=== PATIENT | female | born 1930 | race Caucasian/White ===

== ENCOUNTER 2016-05-20 11:14 | Day surgery (SDC) | payer MEDICARE ==
[~2016-05-20] VITALS: Ht 157.5 cm; Wt 70.0 kg
[2016-05-20 11:15] VITALS: BP 128/80; PULSE 84; RESP 17; TEMP 98.1; O2SAT 98
[2016-05-20] MEDS ORDERED: GLUCAGON 1 MG/ML VIAL IV PUSH ONE (12:00)
[2016-05-20] MEDS ORDERED: ONDANSETRON HCL 4 MG/2 ML VIAL IV PUSH ONE ×2 (12:00)
--- NOTE | 2016-05-20 12:34 | RADRPT ---
EXAM DATE/TIME: 05/20/2016 12:02 [place] COMPARISON: No previous studies available for comparison. INDICATIONS : Patient states chest pain and vomiting. MEDICAL HISTORY : Hypertension. SURGICAL HISTORY : Aortic Valve replacement. ENCOUNTER: Initial ACUITY: 1 day PAIN SCORE: 3/10 LOCATION: Bilateral chest FINDINGS: A single view of the chest demonstrates the lungs to be symmetrically aerated without evidence of mas s, infiltrate or effusion. Wires from previous bypass are evident. The cardiomediastinal contours a re unremarkable. Scoliosis is noted. CONCLUSION: Negative for an acute process. Andreas Ogden MD FACR on May 20, 2016 at 12:32 Board Certified Radiologist. This report was verified electronically.
[2016-05-20] MEDS ORDERED: PRAV10TA PO (12:40)
[2016-05-20] MEDS ORDERED: MIRT45TA PO (12:40)
[2016-05-20] MEDS ORDERED: MSIR15 PO (12:40)
[2016-05-20] MEDS ORDERED: ATEN50TA PO (12:40)
[2016-05-20] MEDS ORDERED: MONT10TA2 PO (12:40)
[2016-05-20] MEDS ORDERED: LEVO150T7 PO (12:40)
[2016-05-20] MEDS ORDERED: APIX2.5T PO (12:40)
[2016-05-20 12:43] LABS: AUTOMATED NEUTROPHIL # 5.1 TH/MM3 (1.8-7.7); BASOPHIL % 0.7 % (0.0-2.0); EOSINOPHIL # 0.1 TH/MM3 (0-0.4); EOSINOPHIL % 1.8 % (0.0-4.0); HEMATOCRIT 42.9 % (35.0-46.0); HEMO FLAGS DIFF FINAL; LYMPH % 23.4 % (9.0-44.0); LYMPHOCYTE # 1.8 TH/MM3 (1.0-4.8); MEAN CELL VOLUME 92.9 FL (80.0-100.0); MEAN CORPUSCULAR HEMOGLOBIN 30.9 PG (27.0-34.0); MEAN CORPUSCULAR HGB CONC 33.3 % (32.0-36.0); MONO % 7.6 % (0.0-8.0); NEUT % 66.5 % (16.0-70.0); PLATELET COUNT 131 TH/MM3 (150-450); RED BLOOD COUNT 4.62 MIL/MM3 (4.00-5.30); RED CELL DISTRIBUTION WIDTH 15.5 % (11.6-17.2); WHITE BLOOD COUNT 7.6 TH/MM3 (4.0-11.0)
[2016-05-20 12:46] LABS: APTT (PATIENT) 25.9 SEC (24.3-30.1); PROTHROMBIN TIME - PATIENT 11.3 SEC (9.8-11.6)
[2016-05-20 12:55] LABS: BICARBONATE 29.5 MEQ/L (21.0-32.0); POTASSIUM 4.3 MEQ/L (3.5-5.1)
[2016-05-20 12:56] LABS: ALT (GPT) 89 U/L (10-53); AST (GOT) 142 U/L (15-37)
--- NOTE | 2016-05-20 12:58 | PD ---
HPI Chief Complaint: Foreign Body Time Seen by Provider: 12:49 Travel History International Travel<30 days: No Contact w/Intl Traveler<30days: No Traveled to known affect area: No History of Present Illness HPI 85-year-old female that presents to the ED for evaluation of possible fluid bolus on her throat. Per patient she was eating steak yesterday and yesterday she felt like something is stuck in her throat. Per patient she hopes that it will get better by today and she woke up today and she tried to have some applesauce and she was able to get it down but per patient he came back up and she threw it up. Per patient she feels like there is something stuck in her throat. She states that it is causes some discomfort in her throat and her chest. She states that she has a history of bladder cancer and has a urostomy tube. She states that she does not takes blood thinners secondary to multiple blood clots in the past. She denies any abdominal discomfort. She states that she's had episodes like this before 2 with EGD performed 2 in the past. She states that the had to do the left patient in the past. Last episode was 3 years ago. She states that she does not have a GI doctor in the area. She is from out of town but she now lives and resides in this area. She does have allergies to codeine and Keflex. She has not seen anybody for this. She comes here with family who provide most of the information as well as the patient. She rates her pain as 5 out of 10. She denies any blood in her vomit. Denies any fevers chills or sweats. No recent surgeries. PFSH Past Medical History Asthma: Yes Anxiety: Yes Cancer: Yes (BLADDER CANCER) High Cholesterol: Yes COPD: Yes Hypertension: Yes Medical other: Yes (BLOOD CLOTS) Musculoskeletal: Yes (BACK INJURY) Thyroid Disease: Yes Tetanus Vaccination: Unknown Menopausal: Yes Past Surgical History Appendectomy: Yes Cardiac Surgery: Yes (BOVINE VALVE) Cholecystectomy: Yes Genitourinary Surgery: Yes (BLADDER REMOVAL, UROSTOMY) Tonsillectomy: Yes Other Surgery: Yes (BOWEL RESECTION, LYMPH NODE REMOVAL) Social History Alcohol Use: No Tobacco Use: No Substance Use: No Allergies-Medications (Allergen,Severity, Reaction): Coded Allergies: Codeine (Verified Allergy, Severe, nausea , 05/20/16) Keflex (Verified Allergy, Severe, rash, 05/20/16) Reported Meds & Prescriptions Reported Meds & Active Scripts Active Reported Pravastatin 10 Mg Tab 10 Mg PO HS Eliquis (Apixaban) 2.5 Mg Tab 2.5 Mg PO BID Singulair (Montelukast Sodium) 10 Mg Tab 10 Mg PO HS Levothyroxine (Levothyroxine Sodium) 150 Mcg Tab 150 Mcg PO DAILY Morphine IR (Morphine Sulfate) 15 Mg Tab 15 Mg PO Q6HR PRN Mirtazapine 45 Mg Tab 45 Mg PO HS Atenolol 50 Mg Tab 50 Mg PO DAILY Review of Systems General / Constitutional: No: Fever, Chills, Weight Gain, Weight Loss, Other Eyes: No: Diploplia, Blurred Vision, Photophobia, Drainage, Redness, Foreign Body Sensation, Pain, Tearing, Blind Spots, Visual changes, Blindness, Other HENT: No: Headaches, Vertigo, Lightheadedness, Sore Throat, Rhinitis, Rhinorrhea, Congestion, Nosebleed, Neck Stiffness, Neck Pain, Masses, Gingival Bleeding, Dental Difficulties, Ear Discharge, Earache, Other Cardiovascular: Positive: Chest Pain or Discomfort, No: Palpitations, Irregular Rhythm, Tachycardia, Diaphoresis, Syncope, Dyspnea on exertion, Varicosities, Edema, Cyanosis, Varicosities, Phlebitis, Claudication, Other Respiratory: No: Cough, Shortness of Breath, Wheezing, Sneezing, Orthopnea, Hemoptysis, Stridor, Night Sweats, Pleuritic Pain, Other Gastrointestinal: Positive: Nausea, Vomiting, Hematemesis, Dysphagia, No: Diarrhea, Abdominal Pain, Hematochezia, Constipation, Changes in Bowel Habits, Indigestion, Loss of Appetite, Other Genitourinary: No: Urgency, Frequency, Dysuria, Nocturia, Hematuria, Decreased Urinary Output, Oliguria, Hesitancy, Dribbling, Incontinence, Pelvic Pain, Flank Pain, Dyspareunia, Discharge, Dysmenorrhea, Menorrhagia, Metorrhagia, Vaginal Bleeding, Other Musculoskeletal: No: Myalgias, Arthralgias, Limited ROM, Weakness, Cramping, Edema, Pain, Atrophy, Other Skin: No Rash, No Itching, No Dryness, No Lumps, No Hives, No Change in Pigmentation, No Change in nails, No Alopecia, No Lesions, No Breast Lumps, No Breast Tenderness, No Breast Swelling, No Other Neurologic: No: Weakness, Dizziness, Syncope, Focal Abnormalities, Coordination Problem, Tremor, Ataxia, Headache, Change in Mentation, Slurred Speech, Paresthesia, Incontinence, Seizures, Sensory Disturbance, Other Psychiatric: No: Anxiety, Depression, Suicidal Ideations, Disorder of Thought, Mood Disorder, Substance Abuse, Homicidal Ideation, Other Endocrine: No: Heat Intolerance, Cold Intolerance, Polyuria, Polydipsia, Other Hematologic/Lymphatic: No: Easy Bruising, Lymph Node Enlargement, Other Physical Exam Narrative GENERAL: SKIN: Warm and dry. HEAD: Atraumatic. Normocephalic. EYES: Pupils equal and round. No scleral icterus. No injection or drainage. ENT: No nasal bleeding or discharge. Mucous membranes pink and moist. Tongue is midline. No uvula deviation. No obvious sign of deformity on the throat itself. NECK: Trachea midline. No JVD. CARDIOVASCULAR: Regular rate and rhythm. No murmurs, S3, S4. RESPIRATORY: No accessory muscle use. Clear to auscultation. Breath sounds equal bilaterally. GASTROINTESTINAL: Abdomen soft, non-tender, nondistended. Hepatic and splenic margins not palpable. MUSCULOSKELETAL: Extremities without clubbing, cyanosis, or edema. No obvious deformities. Full range of motion of the upper and lower extremities bilaterally. 2+ pulses bilaterally. Neurovascular intact. NEUROLOGICAL: Awake and alert. No obvious cranial nerve deficits. Motor grossly within normal limits. Five out of 5 muscle strength in the arms and legs. Normal speech. PSYCHIATRIC: Appropriate mood and affect; insight and judgment normal. Data Data Last Documented VS Vital Signs Date Time Temp Pulse Resp B/P Pulse Ox O2 Delivery O2 Flow Rate FiO2 05/20/16 11:15 98.1 84 17 128/80 98 Orders Complete Blood Count With Diff (05/20/16 11:52) Basic Metabolic Panel (Bmp) (05/20/16 11:52) Iv Access Insert/Monitor (05/20/16 11:52) Ondansetron Inj (Zofran Inj) (05/20/16 12:00) Electrocardiogram (05/20/16 12:00) Troponin I (05/20/16 12:00) Prothrombin Time / Inr (Pt) (05/20/16 12:00) Act Partial Throm Time (Ptt) (05/20/16 12:00) Hepatic Functional Panel (05/20/16 12:00) Lipase (05/20/16 12:00) Chest, Single Ap (05/20/16 12:00) Glucagon Inj (Glucagon Inj) (05/20/16 12:00) Us Abdomen Gallbladder (05/20/16 ) Labs Laboratory Tests Test 05/20/16 12:30 White Blood Count 7.6 TH/MM3 Red Blood Count 4.62 MIL/MM3 Hemoglobin 14.3 GM/DL Hematocrit 42.9 % Mean Corpuscular Volume 92.9 FL Mean Corpuscular Hemoglobin 30.9 PG Mean Corpuscular Hemoglobin 33.3 % Concent Red Cell Distribution Width 15.5 % Platelet Count 131 TH/MM3 Mean Platelet Volume 9.0 FL Neutrophils (%) (Auto) 66.5 % Lymphocytes (%) (Auto) 23.4 % Monocytes (%) (Auto) 7.6 % Eosinophils (%) (Auto) 1.8 % Basophils (%) (Auto) 0.7 % Neutrophils # (Auto) 5.1 TH/MM3 Lymphocytes # (Auto) 1.8 TH/MM3 Monocytes # (Auto) 0.6 TH/MM3 Eosinophils # (Auto) 0.1 TH/MM3 Basophils # (Auto) 0.0 TH/MM3 CBC Comment DIFF FINAL Differential Comment Prothrombin Time 11.3 SEC Prothromb Time International 1.0 RATIO Ratio Activated Partial 25.9 SEC Thromboplast Time Sodium Level 142 MEQ/L Potassium Level 4.3 MEQ/L Chloride Level 108 MEQ/L Carbon Dioxide Level 29.5 MEQ/L Anion Gap 5 MEQ/L Blood Urea Nitrogen 21 MG/DL Creatinine 0.82 MG/DL Estimat Glomerular Filtration 66 ML/MIN Rate Random Glucose 112 MG/DL Calcium Level 8.8 MG/DL Total Bilirubin 1.0 MG/DL Direct Bilirubin 0.4 MG/DL Indirect Bilirubin 0.6 MG/DL Aspartate Amino Transf 142 U/L (AST/SGOT) Alanine Aminotransferase 89 U/L (ALT/SGPT) Alkaline Phosphatase 511 U/L Troponin I LESS THAN 0.02 NG/ML Total Protein 7.6 GM/DL Albumin 3.2 GM/DL Lipase 162 U/L MDM Medical Decision Making Medical Screen Exam Complete: Yes Emergency Medical Condition: Yes Medical Record Reviewed: Yes Interpretation(s) CBC & BMP Diagram 05/20/16 12:30 CXR negative EKG shows sinus rhythm with no sign of acute ischemia or arrhythmia. Read by me and attending. Troponin and CK-MB negative. LFTs slightly elevated. Differential Diagnosis Dysphagia versus food bolus impaction versus esophageal stricture versus esophageal foreign body Narrative Course 85-year-old female that presents to the ED for evaluation of possible Food stock on the throat. Patient was properly examined and was found to have signs and symptoms consistent with appears to be as above footballs impaction in the esophagus. Patient has episodes of this in the past and feels very similar. She was hoping that he will get better but she did not. She has no GI doctor in the area. At this time recommendation is to do labs, imaging, IV glucagon and reasses with PO challenge. Labs and imaging unremarcable. PO challenge failed. GI doctor consulted and Dr. Medina and agrees to same day surgery for EGD. Labs and paperwork done. Diagnosis Primary Impression: Esophageal obstruction due to food impaction Raoul Aparicio May 20, 2016 12:57
[2016-05-20 12:59] LABS: ALKALINE PHOSPHATASE 511 U/L (45-117); INDIRECT BILIRUBIN 0.6 MG/DL (0.0-0.8)
[2016-05-20] MEDS ORDERED: MORPHINE SULFATE 4 MG/ML INJ IV PUSH ONE (14:15)
[2016-05-20] MEDS ORDERED: LACTATED RINGER'S 1,000 ML BAG XX ONE (15:45)
[2016-05-20] MEDS ORDERED: PROPOFOL 200 MG/20 ML AMP IV ONE (16:07)
[2016-05-20 18:24] VITALS: TEMP 97.7
--- NOTE | 2016-05-20 18:44 | PD.CONS ---
HPI History of Present Illness This is a 85 year old presents to the emergency room with complaints of food bolus impaction apparently she was eating today and she couldn't finish her food and hopefully it'll resolve by the morning but when she woke up she said couldn't eat or drink this is happen to her before and she did require esophageal dilation she denies any heartburn or reflux and she does not take any stomach or reflux medication she denies any change in appetite or weight loss denies any chest pain or shortness of breath PFSH Past Medical History Asthma, anxiety, bladder cancer, hyperlipidemia, COPD, hypertension Past Surgical History appendectomy, heart surgery, cholecystectomy, bladder removal, tonsillectomy Coded Allergies: Codeine (Verified Allergy, Severe, nausea , 05/20/16) Keflex (Verified Allergy, Severe, rash, 05/20/16) Medications Pravastatin 10 Mg Tab 10 Mg PO HS Eliquis (Apixaban) 2.5 Mg Tab 2.5 Mg PO BID Singulair (Montelukast Sodium) 10 Mg Tab 10 Mg PO HS Levothyroxine (Levothyroxine Sodium) 150 Mcg Tab 150 Mcg PO DAILY Morphine IR (Morphine Sulfate) 15 Mg Tab 15 Mg PO Q6HR PRN Mirtazapine 45 Mg Tab 45 Mg PO HS Atenolol 50 Mg Tab 50 Mg PO DAILY Family History Noncontributory Social History None Review of Systems ROS Review of systems Patient denies any headache dizziness blurry vision, denies any chest pain shortness of breath cough fever chills, Denies any palpitations or fatigue denies any polyuria dysuria hematuria, denies any numbness tingling or weakness, denies any skin rash pruritus or jaundice, denies any easy bruising or bleeding tendency, denies any recent change in mood GI Exam Vitals I&O Vital Signs Date Time Temp Pulse Resp B/P Pulse Ox O2 Delivery O2 Flow Rate FiO2 05/20/16 11:15 98.1 84 17 128/80 98 Laboratory Test 05/20/16 12:30 White Blood Count 7.6 TH/MM3 Red Blood Count 4.62 MIL/MM3 Hemoglobin 14.3 GM/DL Hematocrit 42.9 % Mean Corpuscular Volume 92.9 FL Mean Corpuscular Hemoglobin 30.9 PG Mean Corpuscular Hemoglobin 33.3 % Concent Red Cell Distribution Width 15.5 % Platelet Count 131 TH/MM3 Mean Platelet Volume 9.0 FL Neutrophils (%) (Auto) 66.5 % Lymphocytes (%) (Auto) 23.4 % Monocytes (%) (Auto) 7.6 % Eosinophils (%) (Auto) 1.8 % Basophils (%) (Auto) 0.7 % Neutrophils # (Auto) 5.1 TH/MM3 Lymphocytes # (Auto) 1.8 TH/MM3 Monocytes # (Auto) 0.6 TH/MM3 Eosinophils # (Auto) 0.1 TH/MM3 Basophils # (Auto) 0.0 TH/MM3 CBC Comment DIFF FINAL Differential Comment Prothrombin Time 11.3 SEC Prothromb Time International 1.0 RATIO Ratio Activated Partial 25.9 SEC Thromboplast Time Sodium Level 142 MEQ/L Potassium Level 4.3 MEQ/L Chloride Level 108 MEQ/L Carbon Dioxide Level 29.5 MEQ/L Anion Gap 5 MEQ/L Blood Urea Nitrogen 21 MG/DL Creatinine 0.82 MG/DL Estimat Glomerular Filtration 66 ML/MIN Rate Random Glucose 112 MG/DL Calcium Level 8.8 MG/DL Total Bilirubin 1.0 MG/DL Direct Bilirubin 0.4 MG/DL Indirect Bilirubin 0.6 MG/DL Aspartate Amino Transf 142 U/L (AST/SGOT) Alanine Aminotransferase 89 U/L (ALT/SGPT) Alkaline Phosphatase 511 U/L Troponin I LESS THAN 0.02 NG/ML Total Protein 7.6 GM/DL Albumin 3.2 GM/DL Lipase 162 U/L Physical Examination HEENT: Pupils round and reactive to light; normocephalic; atraumatic; no jaundice. Throat is clear. NECK: Neck is supple, no JVD, no lymphadenopathy. CHEST: Chest is clear to auscultation and percussion. CARDIAC: Regular rate and rhythm with no murmur gallop or rubs. ABDOMEN: Soft, nondistended, nontender; no hepatosplenomegaly; bowel sounds are present in all four quadrants. EXTREMITIES: No clubbing, cyanosis, or edema. SKIN: Normal; no rash; no jaundice. HORTICULTURAL AGENT: No focal deficits; alert and oriented times three. Assessment and Plan Plan Food bolus impaction with history of esophageal stricture Patient was needed Ollie Parikh MD May 20, 2016 18:44
--- NOTE | 2016-05-20 18:50 | GIPROC ---
[facility] [address] [facility]. [facility], [address] EGD PROCEDURE REPORT EXAM DATE: 05/20/2016 PATIENT NAME: Bonnie Hill MR #: [id number] BIRTHDATE: 1930 ATTENDING: Ollie Cohen MD ORDER #: [id number] PROCESS EXPERT: Cayden Sutherland and Jose Roberto Tavarez STATUS: outpatient INDICATIONS: The patient is a 85 yr old female here for an EGD due to food bolus impaction PROCEDURE PERFORMED: EGD w/ balloon dilation of esophagus egd with food bolus removal prolonged procedure 2 hours MEDICATIONS: Per Anesthesia and None. TOPICAL ANESTHETIC: CONSENT: The patient understands the risks and benefits of the procedure and understands that these risks include, but are not limited to: sedation, allergic reaction, infection, perforation and/or bleeding. Alternative means of evaluation and treatment include, among others: physical exam, x-rays, and/or surgical intervention. The patient elects to proceed with this endoscopic procedure. medical equipment was checked for proper function. Hand hygiene and appropriate measures for infection prevention was taken. After the risks, benefits and alternatives of the procedure were thoroughly explained, Informed consent was verified, confirmed and timeout was successfully executed by the treatment team. The patient was anesthetized with topical anesthesia and the Pentax [id number]-[id number] endoscope was introduced through the mouth and advanced to the second portion of the duodenum. Retroflexed views revealed no abnormalities The gastroscope was then slowly withdrawn and removed. ESOPHAGUS: Food bolus noted in the esophagus filling the whole esophagus this was removed by piecemeal with alligator to quadriceps balloon catheter and Eden net multiple modalities were used for this esophagus to be cleared there was also a mid to distal esophageal stricture that was dilated with a balloon dilator size 15 mm postdilatation view reveals a small mucosal tear otherwise unremarkable esophagus. The endoscopy was otherwise normal. ADVERSE EVENTS: There were no complications. IMPRESSIONS: 1. Food bolus noted in the esophagus filling the whole esophagus this was removed by piecemeal with alligator to quadriceps balloon catheter and Eden net multiple modalities were used for this esophagus to be cleared there was also a mid to distal esophageal stricture that was dilated with a balloon dilator size 15 mm postdilatation view reveals a small mucosal tear otherwise unremarkable esophagus 2. Normal endoscopy otherwise 3. Retroflexed views revealed no abnormalities RECOMMENDATIONS: 1. Follow-up: GI clinic 3 week(s) 2. Patient needs to be nothing by mouth for 3 hours then to be on a clear liquid diet today Patient to advance to soft diet tomorrow Follow-up with GI in 2-3 weeks Recommend repeat EGD in 1-2 months PATIENT CONDITION: stable DISPOSITION: Home REPEAT EXAM: Return 2 months EGD Ollie Cohen MD eSigned: Ollie Cohen MD 05/20/2016 6:49 PM cc: PATIENT NAME: Bonnie Hill MR#: [id number]
[2016-05-20 19:00] VITALS: BP 150/68; PULSE 84; RESP 16; O2SAT 96
--- NOTE | 2016-05-21 21:26 | EKG ---
Date Performed: 05/20/2016 Time Performed: 12:19:52 PTAGE: 85 years EKG: Sinus rhythm WITH OCCASIONAL SUPRAVENTRICULAR PREMATURE COMPLEXES NONSPECIFIC T-WAVE ABNORMALITY BORDERLINE ECG NO PREVIOUS TRACING DOCTOR: Francine Kimball Interpretating Date/Time 05/21/2016 21:25:23
[2016-07-09] MEDS ORDERED: VITA100064 PO (09:24)
== END 2016-05-20 19:38 | disposition home or self-care (01) ==
LOC: NEPE 11:14 → HSDC 13:29
PROVIDERS: ATTEND Internal Medicine Gastroenterology
DX: K22.2 Esophageal obstruction (principal); T18.128A Food in esophagus causing other injury, initial encounter; I10 Essential (primary) hypertension; E78.5 Hyperlipidemia, unspecified; E78.00 Pure hypercholesterolemia, unspecified; J45.909 Unspecified asthma, uncomplicated; J44.9 Chronic obstructive pulmonary disease, unspecified; F41.9 Anxiety disorder, unspecified; E07.9 Disorder of thyroid, unspecified; Z85.51 Personal history of malignant neoplasm of bladder; Z93.6 Other artificial openings of urinary tract status; Z95.2 Presence of prosthetic heart valve; Z90.49 Acquired absence of other specified parts of digestive tract
CPT/HCPCS: 00740; 43247; 43249; 71010; 80048; 80076; 83690; 84484; 85025; 85610; 85730; 93005; 96374; 96375; 99285; C1726; J1610; J2270; J2405; J7120

== ENCOUNTER → 2016-07-09 | Outpatient (CLI) | payer MEDICARE ==
[~2016-07-09] VITALS: Ht 157.5 cm; Wt 67.4 kg
[~2016-07-09] MED LIST: APIX2.5T PO; ATEN50TA PO; CHLORHEXIDINE GLUCONATE 2 % 1 PACK (2 CLOTHS) TOPICAL PRN; INSULIN HUMAN REGULAR 1,000 UNITS/10 ML VIAL SQ PRN; LACTATED RINGER'S 1000 ML IV PRN; LEVO150T7 PO; METOPROLOL TARTRATE 25 MG TAB PO PRN; MIRT45TA PO; MONT10TA2 PO; MSIR15 PO; ONABOTULINUMTOXINA INJ 100 UNITS/VIAL ONE; ONABOTULINUMTOXINA INJ 100 UNITS/VIAL SCH; POVIDONE IODINE 5% (ANTISEPSIS KIT) 4 APPLICATIONS EACH NARE PRN; PRAV10TA PO; PROPOFOL 200 MG/20 ML AMP IV ONE; SODIUM CHLORID 0.9% 500 ML IV PRN; VITA100064 PO
[2016-07-09 09:28] VITALS: BP 145/56; PULSE 62; RESP 20; TEMP 98.4; O2SAT 96
[2016-07-09 12:42] VITALS: BP 151/89; PULSE 73; RESP 18; TEMP 98.6; O2SAT 99
--- NOTE | 2016-07-09 13:07 | GIPROC ---
[facility] [address] [facility]. [facility], [address] EGD PROCEDURE REPORT EXAM DATE: 07/09/2016 PATIENT NAME: Bonnie Hill MR #: [id number] BIRTHDATE: 1930 ATTENDING: Pallavi Peters MD ORDER #: [id number] MEDICATION TECH: Jose Roberto Tavarez and Adrianne Manjarrez STATUS: outpatient INDICATIONS: The patient is a 86 yr old female here for an EGD due to dysphagia and abnormal barium swallow PROCEDURE PERFORMED: EGD w/ dilation of esophagus via guidewire botox injection in distal esophagus MEDICATIONS: Per Anesthesia and None. TOPICAL ANESTHETIC: none CONSENT: The patient understands the risks and benefits of the procedure and understands that these risks include, but are not limited to: sedation, allergic reaction, infection, perforation and/or bleeding. Alternative means of evaluation and treatment include, among others: physical exam, x-rays, and/or surgical intervention. The patient elects to proceed with this endoscopic procedure. medical equipment was checked for proper function. Hand hygiene and appropriate measures for infection prevention was taken. After the risks, benefits and alternatives of the procedure were thoroughly explained, Informed consent was verified, confirmed and timeout was successfully executed by the treatment team. The patient was anesthetized with topical anesthesia and the Pentax EG-[id number] endoscope was introduced through the mouth and advanced to the second portion of the duodenum. Retroflexed views revealed no abnormalities The gastroscope was then slowly withdrawn and removed. Questionable esophageal stricture S/P dilation of esophagus size 18 mm, also injection of 4 cc of botox in the EG junction. The endoscopy was otherwise normal. ADVERSE EVENTS: There were no complications. IMPRESSIONS: 1. Questionable esophageal stricture S/P dilation of esophagus size 18 mm, also injection of 4 cc of botox in the EG junction 2. Normal endoscopy otherwise 3. Retroflexed views revealed no abnormalities RECOMMENDATIONS: 1. Anti-reflux regimen 2. Continue PPI 3. Soft blended diet PATIENT CONDITION: stable DISPOSITION: Home REPEAT EXAM: Return as needed for EGD Pallavi Peters MD eSigned: Pallavi Peters MD 07/09/2016 1:07 PM cc:
== END ==
LOC: HEND 08:43
PROVIDERS: ATTEND Hospitalist
DX: R13.10 Dysphagia, unspecified (principal); R93.3 Abnormal findings on diagnostic imaging of other parts of digestive tract; K22.2 Esophageal obstruction; K29.70 Gastritis, unspecified, without bleeding
CPT/HCPCS: 00740; 43236; 43248; 88305; 88312; C1769; J0585

== ENCOUNTER 2016-09-15 21:36 | Inpatient (IN) | payer MEDICARE ==
[~2016-09-15] VITALS: Ht 157.5 cm; Wt 70.0 kg
[~2016-09-15 21:36] MED LIST changes: -CHLORHEXIDINE GLUCONATE 2 % 1 PACK (2 CLOTHS) TOPICAL PRN; -INSULIN HUMAN REGULAR 1,000 UNITS/10 ML VIAL SQ PRN; -LACTATED RINGER'S 1000 ML IV PRN; -METOPROLOL TARTRATE 25 MG TAB PO PRN; -ONABOTULINUMTOXINA INJ 100 UNITS/VIAL ONE; -ONABOTULINUMTOXINA INJ 100 UNITS/VIAL SCH; -POVIDONE IODINE 5% (ANTISEPSIS KIT) 4 APPLICATIONS EACH NARE PRN; -PROPOFOL 200 MG/20 ML AMP IV ONE; -SODIUM CHLORID 0.9% 500 ML IV PRN
[2016-09-15 21:38] VITALS: BP 163/74; PULSE 88; RESP 20; TEMP 98.1; O2SAT 97
[2016-09-15 22:40] VITALS: PULSE 85; RESP 28; O2SAT 98
[2016-09-15 22:44] VITALS: BP 163/67; PULSE 97; RESP 28; O2SAT 98
[2016-09-15] MEDS ORDERED: methylPREDNISolone SOD SUCC 125 MG/2 ML VIAL IVP ONE (23:00)
[2016-09-15] MEDS ORDERED: SODIUM CHLORIDE 0.9% FLUSH 10 ML FLUSH IVF PRN (23:00)
[2016-09-15] MEDS: RESP: ALBUTEROL 2.5 MG/IPRATROPIUM 0.5 MG NEB (SCH) INH (23:13)
[2016-09-15] MEDS ORDERED: MUCINEX DM (23:15)
[2016-09-15] MEDS ORDERED: MORP1TAB24 PO (23:15)
[2016-09-15] MEDS ORDERED: ALB INH (23:15)
[2016-09-15] MEDS ORDERED: CEFUROXIME AXETIL PO (23:15)
[2016-09-15] MEDS ORDERED: Prednisone (23:15)
[2016-09-15] MEDS ORDERED: BENZ1CAP8 PO (23:15)
--- NOTE | 2016-09-15 23:16 | PD ---
HPI Chief Complaint: Respiratory Symptoms Time Seen by Provider: 22:34 Travel History International Travel<30 days: No Contact w/Intl Traveler<30days: No Traveled to known affect area: No History of Present Illness HPI The patient is an 86 year old female who presents to the [facility] emergency department with a history of congestion associated with shortness of breath that began on of this past week, 3 days ago. The patient has a known history of asthma and COPD. The patient was seen on Friday by her oncologist and at that time was noted to have congestion in her lungs, therefore the patient was started on a prednisone taper and Azithromycin. The congestion continued to worsen and they were concerned that she may develop pneumonia as she has had this in the past, therefore today she did go to an urgent care center. No x-ray was done at that time, however the patient was discontinued off of the azithromycin and instead started on Ceftin. She was continued on the prednisone taper. The patient's family became concerned that she continues to have shortness of breath in spite of using her inhaler. She reports that she feels congested in her chest, however she has not able to get any of the congestion up when she coughs. She reports that the cough is productive sounding. She denies having any known fevers. She denies having any nebulizer machine at home, however she did last use her rescue inhaler between 8 and 8:30 PM today. The patient reports that she has had 4 total cancers, the most recent one diagnosed on Friday by her oncologist, Dr. Meza. She reports that she was diagnosed with a left breast cancer. 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 The patient reports that she does have a history of having an aortic valve replacement. 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 On review of systems, the patient denies any neck pain, chest pain, abdominal pain, vomiting, urinary symptoms, or neurologic symptoms. The patient does report having 3 loose stools earlier today. She denies any blood in her stool or black or tarry stools. She reports that she's had diarrhea or loose stools since starting the antibiotic. She reports having lower extremity edema that waxes and wanes in severity. She denies this being any worse than usual. [facility] Past Medical History Narrative Medical The patient's past medical history is significant for hypothyroid disorder, history of TIA, history of valve replacement, history of colon cancer, bladder cancer, lymph node related cancer and recent diagnosis of recurrent breast cancer, hypertension, hyperlipidemia, COPD and asthma. Asthma: Yes Anxiety: Yes Cancer: Yes (BLADDER CANCER, BOWEL CANCER, AORTIC LYMPH NODES W REMOVAL ) Cardiovascular Problems: Yes (HYPERLIPIDEMIA) High Cholesterol: Yes COPD: Yes Diabetes: No Endocrine: No Gastrointestinal Disorders: Yes (ESOPHAGEAL STRICTURE) Genitourinary: No Hepatitis: No Hiatal Hernia: No Hypertension: Yes Immune Disorder: No Musculoskeletal: Yes (BACK INJURY) Neurologic: No Psychiatric: Yes (ANXIETY) Reproductive: No Respiratory: Yes (COPD) Thyroid Disease: Yes Influenza Vaccination: Yes Menopausal: Yes Past Surgical History Narrative Surgical The patient's past surgical history is significant for a valve replacement with a bovine valve, bladder resection with ileal conduit, partial colon resection, lymph node resection, breast biopsy, cholecystectomy, appendectomy. Abdominal Surgery: Yes (APPENDECTOMY, CHOLY) AICD: No Appendectomy: Yes Body Medical Devices: BOVINE VALVE Cardiac Surgery: Yes (BOVINE VALVE) Cholecystectomy: Yes Ear Surgery: No Endocrine Surgery: No Eye Surgery: No Genitourinary Surgery: Yes (BLADDER REMOVAL, UROSTOMY) Gynecologic Surgery: No Joint Replacement: No Oral Surgery: Yes (TONSILLECTOMY) Pacemaker: No Thoracic Surgery: No Tonsillectomy: Yes Other Surgery: Yes (BOWEL RESECTION, LYMPH NODE REMOVAL) Social History Alcohol Use: No Tobacco Use: No Substance Use: No Allergies-Medications (Allergen,Severity, Reaction): Coded Allergies: Ambien (Verified Allergy, Severe, Confusion, 09/15/16) Codeine (Verified Allergy, Severe, nausea , 09/15/16) Dramamine (Verified Allergy, Severe, Confusion, 09/15/16) HMG-CoA Reductase Inhibitors (Verified Allergy, Severe, 09/15/16) Keflex (Verified Allergy, Severe, rash, 09/15/16) Reported Meds & Prescriptions Reported Meds & Active Scripts Active Reported [mucinex dm] Benzonatate 100 Mg Cap 100 Mg PO TID PRN [cefuroxime axetil] 500 Mg PO BID just started today [Prednisone] [Alb Inh BID] 2 Puff INH Morphine ER (Morphine Sulfate) 15 Mg Tab 15 Mg PO Q6HR Vitamin D3 (Cholecalciferol) 1,000 Unit Tab 2,000 Units PO DAILY Pravastatin 10 Mg Tab 10 Mg PO HS Eliquis (Apixaban) 2.5 Mg Tab 2.5 Mg PO DAILY Singulair (Montelukast Sodium) 10 Mg Tab 10 Mg PO HS Levothyroxine (Levothyroxine Sodium) 150 Mcg Tab 150 Mcg PO DAILY Morphine IR (Morphine Sulfate) 15 Mg Tab 15 Mg PO Q6HR PRN Mirtazapine 45 Mg Tab 45 Mg PO HS Atenolol 50 Mg Tab 50 Mg PO DAILY Review of Systems Except as stated in HPI: all other systems reviewed are Neg General / Constitutional: No: Fever Eyes: No: Visual changes HENT: No: Headaches Cardiovascular: No: Chest Pain or Discomfort Respiratory: Positive: Cough, Shortness of Breath, Wheezing Gastrointestinal: Positive: Diarrhea, Changes in Bowel Habits, No: Nausea, Vomiting, Abdominal Pain, Indigestion, Loss of Appetite Genitourinary: No: Dysuria Musculoskeletal: No: Pain Skin: No Rash Neurologic: Positive: Weakness (generalized weakness), No: Focal Abnormalities , Change in Mentation, Slurred Speech, Sensory Disturbance Psychiatric: No: Depression Endocrine: No: Polydipsia Hematologic/Lymphatic: No: Easy Bruising Physical Exam Narrative General: The patient is a well-developed well-nourished female in no acute distress. Head and Neck exam: Head is normocephalic atraumatic. Eyes: EOMI, pupils are equal round and reactive to light. Nose: Midline septum with pink mucous membranes Mouth: Dentition unremarkable. Moist mucus membranes. Posterior oropharynx is not erythematous. No tonsillar hypertrophy. Uvula midline. Airway patent. Neck: No palpable lymphadenopathy. No nuchal rigidity. No thyromegaly. Cardiovascular: Regular rate and rhythm without murmurs, gallops, or rubs. No pulse deficit to the extremities and simultaneous auscultation and palpation of her radial artery. Lungs: Soft expiratory wheezes are audible anteriorly. The patient has scattered rhonchi with upper airway sound transmission with a congested cough noted. No tripoding. No paroxysmal abdominal breathing, no accessory muscle use. Abdomen: Soft, without tenderness to palpation in all 4 quadrants of the abdomen. No guarding, rebound, or rigidity. Normal bowel sounds are audible. No tenderness on palpation of McBurney's point. Negative Franklin sign. Extremities: No clubbing or cyanosis. The patient has trace pedal edema which she reports is chronic and comes and goes. 2+ pulses in all 4 extremities. No calf tenderness on palpation. Back: No spinous process tenderness to palpation. No costovertebral angle tenderness to palpation. Neurologic Exam: Grossly nonfocal. Skin Exam: No rash noted. Intact skin that is warm and dry. Data Data Last Documented VS Vital Signs Date Time Temp Pulse Resp B/P Pulse Ox O2 Delivery O2 Flow Rate FiO2 09/15/16 23:53 95 Room Air 09/15/16 22:44 97 28 163/67 09/15/16 21:38 98.1 Orders Electrocardiogram (09/15/16 22:46) Complete Blood Count With Diff (09/15/16 22:46) Comprehensive Metabolic Panel (09/15/16 22:46) Creatine Kinase (Cpk) (09/15/16 22:46) Ckmb (Isoenzyme) Profile (09/15/16 22:46) Troponin I (09/15/16 22:46) B-Type Natriuretic Peptide (09/15/16 22:46) Prothrombin Time / Inr (Pt) (09/15/16 22:46) Act Partial Throm Time (Ptt) (09/15/16 22:46) Blood Culture (09/15/16 22:46) C-Reactive Protein (Crp) (09/15/16 22:46) Magnesium (Mg) (09/15/16 22:46) Chest, Single Ap (09/15/16 22:46) Iv Access Insert/Monitor (09/15/16 22:46) Ecg Monitoring (09/15/16 22:46) Oximetry (09/15/16 22:46) Lactic Acid Sepsis Protocol (09/15/16 22:46) Methylprednisolone So Succ Inj (Solumedr (09/15/16 23:00) Sodium Chloride 0.9% Flush (Ns Flush) (09/15/16 23:00) Albuterol-Ipratropium Neb (Duoneb Neb) (09/15/16 23:00) CKMB (09/15/16 22:50) CKMB% (09/15/16 22:50) Ceftriaxone Inj (Rocephin Inj) (09/16/16 00:45) Morphine Inj (Morphine Inj) (09/16/16 00:45) Ondansetron Inj (Zofran Inj) (09/16/16 00:45) Admit Order (Ed Use Only) (09/16/16 01:06) Labs Laboratory Tests Test 09/15/16 22:50 White Blood Count 7.1 TH/MM3 Red Blood Count 4.01 MIL/MM3 Hemoglobin 12.7 GM/DL Hematocrit 37.9 % Mean Corpuscular Volume 94.6 FL Mean Corpuscular Hemoglobin 31.7 PG Mean Corpuscular Hemoglobin 33.5 % Concent Red Cell Distribution Width 16.2 % Platelet Count 121 TH/MM3 Mean Platelet Volume 9.3 FL Neutrophils (%) (Auto) 64.5 % Lymphocytes (%) (Auto) 23.3 % Monocytes (%) (Auto) 10.3 % Eosinophils (%) (Auto) 1.0 % Basophils (%) (Auto) 0.9 % Neutrophils # (Auto) 4.6 TH/MM3 Lymphocytes # (Auto) 1.6 TH/MM3 Monocytes # (Auto) 0.7 TH/MM3 Eosinophils # (Auto) 0.1 TH/MM3 Basophils # (Auto) 0.1 TH/MM3 CBC Comment DIFF FINAL Differential Comment Prothrombin Time 12.1 SEC Prothromb Time International 1.1 RATIO Ratio Activated Partial 27.3 SEC Thromboplast Time Lactic Acid Level 1.8 mmol/L Sodium Level 141 MEQ/L Potassium Level 4.7 MEQ/L Chloride Level 109 MEQ/L Carbon Dioxide Level 27.2 MEQ/L Anion Gap 5 MEQ/L Blood Urea Nitrogen 23 MG/DL Creatinine 0.98 MG/DL Estimat Glomerular Filtration 54 ML/MIN Rate Random Glucose 169 MG/DL Calcium Level 7.9 MG/DL Magnesium Level 1.9 MG/DL Total Bilirubin 0.5 MG/DL Aspartate Amino Transf 61 U/L (AST/SGOT) Alanine Aminotransferase 34 U/L (ALT/SGPT) Alkaline Phosphatase 381 U/L Total Creatine Kinase 102 U/L Creatine Kinase MB 3.2 NG/ML Troponin I LESS THAN 0.02 NG/ML C-Reactive Protein 0.50 MG/DL B-Type Natriuretic Peptide 130 PG/ML Total Protein 7.5 GM/DL Albumin 2.7 GM/DL MDM Medical Decision Making Medical Screen Exam Complete: Yes Emergency Medical Condition: Yes Medical Record Reviewed: Yes Differential Diagnosis COPD exacerbation, versus pneumonia, versus bronchitis, versus pneumothorax, versus pleural effusion, versus congestive heart failure Narrative Course During the course of the patients emergency department visit, the patients history, examination, and differential diagnosis were reviewed with the patient. The patient had IV access obtained and blood work sent for analysis. The patient was placed on a playground monitor with oximetry and blood pressure monitoring. An ECG was done on arrival. The patient's ECG reveals a sinus rhythm with frequent supraventricular contractions, QRS duration 95 ms, QTC 403 ms, no acute ST segment elevation or depression is noted. The patient was initially provided Solu-Medrol 125 mg IV, DuoNeb 3. The patient is due for her nighttime dose of antibiotic and was given Rocephin 1 g IV. She is also due for her nighttime dose of pain medication was given morphine 4 mg IV, Zofran 4 mg IV. The patients laboratory studies were reviewed and remarkable for a white count of 7.1, hemoglobin 12.7, platelets 121 with 10.3 monocytes, CMP is remarkable for chloride of 109, BUN 23, glucose 69, calcium 7.9, magnesium 1.9, AST 61, alkaline phosphatase 381, CPK 102, troponin I less than 0.02, C-reactive protein 0.50, BNP 150, albumin 2.7, PT 12.1, INR 1.1, PTT 27.3. Radiology studies were reviewed and remarkable for a chest x-ray that shows an underinflated and rotated exam, no acute cardiopulmonary abnormality is identified. The patient on reexamination reported continued shortness of breath. The patient will be admitted for observation regarding a COPD exacerbation. The patients results were discussed with the patient, including the plan of care. I explained that further testing and/ or monitoring is indicated based on the patients history, examination, and/ or laboratory findings. Therefore, I recommended admission for additional evaluation. The patient expressed understanding and was agreeable with this plan. The patient was admitted to the hospital in stable condition and sent to a bed under the care of the [facility]. Physician Communication Physician Communication The patient's case was discussed with Ho Levi who did agree to admit the patient to the [facility]. Diagnosis Primary Impression: COPD exacerbation Admitting Information Admitting Physician Requests: Victorina Franco MD Sep 15, 2016 23:16
[2016-09-15 23:20] LABS: AUTOMATED NEUTROPHIL # 4.6 TH/MM3 (1.8-7.7); BASOPHIL # 0.1 TH/MM3 (0-0.2); BASOPHIL % 0.9 % (0.0-2.0); EOSINOPHIL # 0.1 TH/MM3 (0-0.4); HEMATOCRIT 37.9 % (35.0-46.0); HEMO FLAGS DIFF FINAL; LYMPH % 23.3 % (9.0-44.0); LYMPHOCYTE # 1.6 TH/MM3 (1.0-4.8); MEAN CELL VOLUME 94.6 FL (80.0-100.0); MEAN CORPUSCULAR HEMOGLOBIN 31.7 PG (27.0-34.0); MEAN CORPUSCULAR HGB CONC 33.5 % (32.0-36.0); MONO % 10.3 % (0.0-8.0); NEUT % 64.5 % (16.0-70.0); PLATELET COUNT 121 TH/MM3 (150-450); RED BLOOD COUNT 4.01 MIL/MM3 (4.00-5.30); RED CELL DISTRIBUTION WIDTH 16.2 % (11.6-17.2); WHITE BLOOD COUNT 7.1 TH/MM3 (4.0-11.0)
[2016-09-15 23:30] LABS: APTT (PATIENT) 27.3 SEC (24.3-30.1); INTERNATIONAL NORMALIZED RATIO 1.1 RATIO; PROTHROMBIN TIME - PATIENT 12.1 SEC (9.8-11.6)
--- NOTE | 2016-09-15 23:47 | RADRPT ---
EXAM DATE/TIME: 09/15/2016 23:30 [facility] COMPARISON: CHEST SINGLE AP, May 20, 2016, 12:02. INDICATIONS : Shortness of breath. MEDICAL HISTORY : Hypertension. SURGICAL HISTORY : Aortic Valve replacement. ENCOUNTER: Initial ACUITY: 1 day PAIN SCORE: 0/10 LOCATION: Bilateral chest FINDINGS: Portable AP view of the chest demonstrates a normal-sized cardiac silhouette. Patient is underinflate d and rotated likely related to the thoraco- lumbar scoliosis. There has been prior median sternotomy . No pleural effusion, airspace consolidation, or pneumothorax is visualized. CONCLUSION: Underinflated and rotated examination. No acute cardiopulmonary abnormality is identified. Ho Ambrose MD on September 15, 2016 at 23:45 Board Certified Radiologist. This report was verified electronically.
[2016-09-15 23:50] LABS: ALT (GPT) 34 U/L (10-53); ANION GAP 5 MEQ/L (5-15); AST (GOT) 61 U/L (15-37); BICARBONATE 27.2 MEQ/L (21.0-32.0); BLOOD UREA NITROGEN 23 MG/DL (7-18); CHLORIDE 109 MEQ/L (98-107); GLOMERULAR FILTRATION RATE 54 ML/MIN (>89); MAGNESIUM 1.9 MG/DL (1.5-2.5); POTASSIUM 4.7 MEQ/L (3.5-5.1); SODIUM (NA) 141 MEQ/L (136-145)
[2016-09-15 23:52] LABS: ALKALINE PHOSPHATASE 381 U/L (45-117); CREATINE KINASE 102 U/L (26-192); TOTAL BILIRUBIN ADULT 0.5 MG/DL (0.2-1.0)
[2016-09-15 23:53] VITALS: O2SAT 95
[2016-09-16] VITALS (9 sets, daily range): BP systolic 128–187; BP diastolic 60–73; PULSE 55–74; RESP 15–18; TEMP 97.2–98.5; O2SAT 93–95
[2016-09-16 00:05] LABS: CKMB 3.2 NG/ML (0.5-3.6)
[2016-09-16] MEDS: cefTRIAXone INJ 1,000 MG in SODIUM CHLORIDE 0.9% INJ 100 ML IV ONE ×2 (01:29→02:13)
[2016-09-16] MEDS: ONDANSETRON HCL 4 MG/2 ML VIAL IV PUSH ONE ×2 (01:29→02:13)
[2016-09-16] MEDS: MORPHINE SULFATE 4 MG/ML INJ IV PUSH ONE ×2 (01:30→02:13)
[2016-09-16] MEDS ORDERED: RESP: ALBUTEROL 2.5 MG/3 ML NEB (PRN) INH (02:15)
[2016-09-16] MEDS ORDERED: SODIUM CHLORIDE 0.9% FLUSH 10 ML FLUSH IV FLUSH PRN (02:15)
[2016-09-16] MEDS: RESP: ALBUTEROL 2.5 MG/IPRATROPIUM 0.5 MG NEB (SCH) INH ×4 (02:23→19:51)
[2016-09-16] MEDS: methylPREDNISolone SOD SUCC 125 MG/2 ML VIAL IVP SCH ×4 (05:48→23:31)
[2016-09-16] MEDS: MORPHINE SULFATE 15 MG TAB PO PRN ×2 (06:46→21:12)
[2016-09-16] MEDS: LEVOTHYROXINE SODIUM 150 MCG TAB PO SCH (08:14)
[2016-09-16] MEDS: BENZONATATE 100 MG CAP PO PRN ×2 (08:14→21:12)
[2016-09-16] MEDS: APIXABAN 2.5 MG TABLET PO SCH (08:14)
[2016-09-16] MEDS: ATENOLOL 50 MG TAB PO SCH (08:15)
[2016-09-16] MEDS: SODIUM CHLORIDE 0.9% FLUSH 10 ML FLUSH IV FLUSH SCH ×2 (08:15→21:12)
--- NOTE | 2016-09-16 08:44 | EKG ---
Date Performed: 09/15/2016 Time Performed: 23:32:47 PTAGE: 86 years EKG: Sinus rhythm WITH FREQUENT SUPRAVENTRICULAR PREMATURE COMPLEXES LEFT VENTRICULAR HYPERTROPHY AND ST-T CHANGE ABNO RMAL ECG PREVIOUS TRACING : 05/20/2016 12.19 Compared to previous tracing, high lateral ST/T changes are now more pronounced. DOCTOR: Federico García Interpretating Date/Time 09/16/2016 08:42:25
--- NOTE | 2016-09-16 09:14 | HHI.HP ---
HPI Service [facility] Primary Care Physician Arnie Trevizo MD Admission Diagnosis COPD exacerbation, bronchitis Diagnoses: Chief Complaint: sob, cough Travel History International Travel<30 Days: No Contact w/Intl Traveler <30 Da: No Traveled to Known Affected Are: No History of Present Illness This a pleasant 86-year-old elderly female with significant past medical history of COPD not oxygen dependent, CAD, amaurosis [place], TIA, arthritis, bladder cancer status post cystectomy, neuroendocrine malignancy. Patient was recently diagnosed with left breast cancer, she is due to have lumpectomy October 05 and possible radiation with Dr. Morris. Patient presented to the emergency room with complaint of shortness of breath that began on . Patient has history of asthma and COPD, nonsmoker. Patient was seen on Friday by her radiation oncologist and at that time was found congested and was started on prednisone taper and Zithromax. Patient indicates that she has continued to worsen and when to an urgent care center where she was given DuoNeb 's and started on Ceftin. Because her symptoms were not improving, her family decided to bring her here for further evaluation. Patient denies any fever, no chills. She has had increased cough, she has difficulty bringing up any sputum. She's been short of breath and wheezing. She has been using an inhaler as needed. Has had chest pain associated with increased coughing. In the emergency room, patient was evaluated. CBC was unremarkable other than thrombocytopenia, platelets 121. BMP remarkable for glucose of 169, BUN 23. Crit lactic acid 1.8. Troponin was negative. Alkaline phosphatase 381. AST 61. BNP 130. Chest x-ray was unremarkable. Patient was given IV Solu-Medrol, DuoNeb's and started on empiric antibiotics. Patient is not evaluated, she remains with audible wheezes and nonproductive cough. Son is at bedside. Patient is admitted for further evaluation and treatment. Review of Systems Constitutional: DENIES: Diaphoretic episodes, Fatigue, Fever, Weight gain, Weight loss, Chills, Dizziness, Change in appetite, Night Sweats Endocrine: DENIES: Abnorml menstrual pattern, Heat/cold intolerance, Polydipsia , Polyuria, Polyphagia Eyes: DENIES: Blurred vision, Diplopia, Eye inflammation, Eye pain, Vision loss , Photosensitivity, Double Vision Ears, nose, mouth, throat: DENIES: Tinnitus, Hearing loss, Vertigo, Nasal discharge, Oral lesions, Throat pain, Hoarseness, Ear Pain, Running Nose, Epistaxis, Sinus Pain, Toothache, Odynophagia Respiratory: COMPLAINS OF: Cough, Wheezing, Sputum production, Shortness of breath, DENIES: Apneas, Snoring, Hemoptysis Cardiovascular: COMPLAINS OF: Chest pain, DENIES: Palpitations, Syncope, Dyspnea on Exertion, PND, Lower Extremity Edema, Orthopnea, Claudication Gastrointestinal: DENIES: Abdominal pain, Black stools, Bloody stools, Constipation, Diarrhea, Nausea, Vomiting, Difficulty Swallowing, Anorexia Genitourinary: DENIES: Abnormal vaginal bleeding, Dysmenorrhea, Dyspareunia, Sexual dysfunction, Urinary frequency, Urinary incontinence, Urgency, Hematuria , Dysuria, Nocturia, Vaginal discharge Musculoskeletal: DENIES: Joint pain, Muscle aches, Stiffness, Joint Swelling, Back pain, Neck pain Integumentary: DENIES: Abnormal pigmentation, Pruritus, Rash, Nail changes, Breast masses, Breast skin changes, Nipple discharge Hematologic/lymphatic: DENIES: Bruising, Lymphadenopathy Immunologic/allergic: DENIES: Eczema, Urticaria Psychiatric: DENIES: Anxiety, Confusion, Mood changes, Depression, Hallucinations, Agitation, Suicidal Ideation, Homicidal Ideation, Delusions Past Family Social History Past Medical History COPD anxiety Arthritis Asthma CAD Amaurosis [place] TIA Hyperlipidemia HTN Hypothyroid Bladder cancer, s/p cystectomy Recurrent neuroendocrine carcinoma Left breast cancer, newly diagnosed due to have lumpectomy with Dr. Schroeder October 05. Supposed to have radiation after with Dr. Morris Recurrent DVT, PE Past Surgical History Appendectomy AVR and single-vessel CABG in 2009 Cholecystectomy Cystectomy with ileal conduit EGD with dilatation Tonsillectomy Lymph node removal Bowel resection Reported Medications Reported Meds & Active Scripts Active Reported [mucinex dm] Benzonatate 100 Mg Cap 100 Mg PO TID PRN [cefuroxime axetil] 500 Mg PO BID just started today [Prednisone] [Alb Inh BID] 2 Puff INH Morphine ER (Morphine Sulfate) 15 Mg Tab 15 Mg PO Q6HR Vitamin D3 (Cholecalciferol) 1,000 Unit Tab 2,000 Units PO DAILY Pravastatin 10 Mg Tab 10 Mg PO HS Eliquis (Apixaban) 2.5 Mg Tab 2.5 Mg PO DAILY Singulair (Montelukast Sodium) 10 Mg Tab 10 Mg PO HS Levothyroxine (Levothyroxine Sodium) 150 Mcg Tab 150 Mcg PO DAILY Morphine IR (Morphine Sulfate) 15 Mg Tab 15 Mg PO Q6HR PRN Mirtazapine 45 Mg Tab 45 Mg PO HS Atenolol 50 Mg Tab 50 Mg PO DAILY Allergies: Coded Allergies: Ambien (Verified Allergy, Severe, Confusion, 09/15/16) Codeine (Verified Allergy, Severe, nausea , 09/15/16) Dramamine (Verified Allergy, Severe, Confusion, 09/15/16) HMG-CoA Reductase Inhibitors (Verified Allergy, Severe, 09/15/16) Keflex (Verified Allergy, Severe, rash, 09/15/16) Active Ordered Medications Inpatient Medications Albuterol Sulfate (Albuterol Neb) 2.5 mg Q2HR NEB PRN INH SHORTNESS OF BREATH; Start 09/16/16 at 02:15 Albuterol/ Ipratropium (Duoneb Neb) 1 ampule Q6HR NEB INH Last administered on 09/16/16 02:23; Start 09/16/16 at 04:00 Apixaban (Eliquis) 2.5 mg DAILY PO Last administered on 09/16/16 08:14; Start 09/16/16 at 09:00 Atenolol (Tenormin) 50 mg DAILY PO Last administered on 09/16/16 08:15; Start 09/16/16 at 09:00 Benzonatate (Tessalon) 100 mg TID PRN PO COUGH Last administered on 09/16/16 08:14; Start 09/16/16 at 07:45 Ceftriaxone Sodium/Sodium Chloride (Rocephin Inj/NS Inj) 100 ml @ 200 mls/hr Q24H IV ; Start 09/17/16 at 02:00 Levothyroxine Sodium (Synthroid) 150 mcg DAILY@06 PO Last administered on 08:14; Start 09/16/16 at 09:00 Methylprednisolone Sodium Succinate (SoluMEDROL INJ) 60 mg Q6H IVP Last administered on 09/16/16 05:48; Start 09/16/16 at 06:00 Mirtazapine (Remeron) 45 mg HS PO ; Start 09/16/16 at 21:00 Montelukast Sodium (Singulair) 10 mg HS PO ; Start 09/16/16 at 21:00 Morphine Sulfate (Morphine Inj) 4 mg ONCE ONCE IV PUSH Last administered on 02:13; Start 09/16/16 at 00:45; Stop 09/16/16 at 00:46; Status DC Morphine Sulfate 15 mg 15 mg Q6H PRN PO severe pain Last administered on 06:46; Start 09/16/16 at 02:15 Ondansetron HCl (Zofran Inj) 4 mg ONCE ONCE IV PUSH Last administered on 02:13; Start 09/16/16 at 00:45; Stop 09/16/16 at 00:46; Status DC Pravastatin Sodium (Pravachol) 10 mg HS PO ; Start 09/16/16 at 21:00 Sodium Chloride (NS Flush) 2 ml UNSCH PRN IV FLUSH FLUSH AFTER USING IV ACCESS Last administered on 09/16/16 05:47; Start 09/16/16 at 02:15 Family History Reviewed, non contributory Social History , lives with daughter. Non smoker, however heavy second hand exposure. Non drinker. No substance abuse. Physical Exam Vital Signs Vital Signs Date Time Temp Pulse Resp B/P Pulse Ox O2 Delivery O2 Flow Rate FiO2 09/16/16 07:38 98.1 67 15 153/67 95 09/16/16 05:31 98.3 68 18 141/73 93 09/16/16 02:26 93 09/15/16 23:53 95 Room Air 09/15/16 22:44 97 28 163/67 98 Room Air 09/15/16 22:40 85 28 98 Room Air 09/15/16 21:38 98.1 88 20 163/74 97 Room Air Physical Exam GENERAL: This is a well-nourished, well-developed patient, in no apparent distress. SKIN: No rashes, ecchymoses or lesions. Cool and dry. HEAD: Atraumatic. Normocephalic. No temporal or scalp tenderness. EYES: Pupils equal round and reactive. Extraocular motions intact. No scleral icterus. No injection or drainage. ENT: Nose without bleeding, purulent drainage or septal hematoma. Throat without erythema, tonsillar hypertrophy or exudate. Uvula midline. Airway patent. NECK: Trachea midline. No JVD or lymphadenopathy. Supple, nontender, no meningeal signs. CARDIOVASCULAR: Regular rate and rhythm without murmurs, gallops, or rubs. RESPIRATORY: Coarse ronchi, exp. wheezing. Non productive cough. GASTROINTESTINAL: Abdomen soft, non-tender, nondistended. No hepato-splenomegaly , or palpable masses. No guarding. MUSCULOSKELETAL: Extremities without clubbing, cyanosis, or edema. No joint tenderness, effusion, or edema noted. No calf tenderness. Negative Homans sign bilaterally. NEUROLOGICAL: Awake, alert, oriented x 3. No focal deficits. Laboratory Laboratory Tests Test 09/15/16 22:50 White Blood Count 7.1 Red Blood Count 4.01 Hemoglobin 12.7 Hematocrit 37.9 Mean Corpuscular Volume 94.6 Mean Corpuscular Hemoglobin 31.7 Mean Corpuscular Hemoglobin 33.5 Concent Red Cell Distribution Width 16.2 Platelet Count 121 Mean Platelet Volume 9.3 Neutrophils (%) (Auto) 64.5 Lymphocytes (%) (Auto) 23.3 Monocytes (%) (Auto) 10.3 Eosinophils (%) (Auto) 1.0 Basophils (%) (Auto) 0.9 Neutrophils # (Auto) 4.6 Lymphocytes # (Auto) 1.6 Monocytes # (Auto) 0.7 Eosinophils # (Auto) 0.1 Basophils # (Auto) 0.1 CBC Comment DIFF FINAL Differential Comment Prothrombin Time 12.1 Prothromb Time International 1.1 Ratio Activated Partial 27.3 Thromboplast Time Lactic Acid Level 1.8 Sodium Level 141 Potassium Level 4.7 Chloride Level 109 Carbon Dioxide Level 27.2 Anion Gap 5 Blood Urea Nitrogen 23 Creatinine 0.98 Estimat Glomerular Filtration 54 Rate Random Glucose 169 Calcium Level 7.9 Magnesium Level 1.9 Total Bilirubin 0.5 Aspartate Amino Transf 61 (AST/SGOT) Alanine Aminotransferase 34 (ALT/SGPT) Alkaline Phosphatase 381 Total Creatine Kinase 102 Creatine Kinase MB 3.2 Troponin I LESS THAN 0.02 C-Reactive Protein 0.50 B-Type Natriuretic Peptide 130 Total Protein 7.5 Albumin 2.7 Date/Time Procedure Status Source Growth 09/15/16 22:55 Aerobic Blood Culture Received Blood Peripheral Pending 09/15/16 22:55 Anaerobic Blood Culture Received Blood Peripheral Pending Result Diagram: 09/15/16224909/15/16 2250 Imaging Last Impressions Chest X-Ray 09/15/16 2246 Signed Impressions: Service Date/Time: Thursday, September 15, 2016 23:30 - CONCLUSION: Underinflated and rotated examination. No acute cardiopulmonary abnormality is identified. Ho Ambrose MD Assessment and Plan Problem List: (1) COPD with exacerbation (2) Bronchitis (3) Breast cancer, left (4) Failure of outpatient treatment (5) Hx of deep venous thrombosis (6) Hx pulmonary embolism (7) HTN (hypertension) Assessment and Plan Admit to Dr. Garcia 86-year-old elderly white female recently diagnosed with left breast cancer and due to have a lumpectomy and radiation, presents with increasing shortness of breath, cough, wheezing. He was recently prescribed prednisone and Zithromax and today was started on Keflex. Patient presents with worsening symptoms. COPD exacerbation, with bronchitis Failure of outpatient therapy -Continue with empiric antibiotics Obtain sputum culture Continue with Solu-Medrol 60 mg IV every 6 Continue DuoNeb's Continue with Tessalon when necessary Mucinex 600 mg by mouth twice a day History DVT and PE Continue with Eliquis Hypertension, stable Continue home medications Left breast cancer, recently diagnosed. Patient due to have lumpectomy with Dr. Schroeder in September. After she will be having radiation Prior history of bladder cancer, neuroendocrine malignancy Patient to follow-up with radiation oncology as outpatient Home medications reviewed, initiated as indicated Continue with Eliquis for DVT prophylaxis Plan of care has been discussed with the patient and her son, their questions answered in detail. Plan of care discussed with attending and registered nurse. Further management of the patient will be dependent on the hospital course This patient was seen by myself and Dr. Garcia, this H&P is written on her behalf Problem Qualifiers (1) Breast cancer, left: Qualified Code: C50.912 - Malignant neoplasm of left female breast, unspecified estrogen receptor status, unspecified site of breast (2) HTN (hypertension): Qualified Code: I10 - Essential hypertension Linda Land Sep 16, 2016 09:14
[2016-09-16] MEDS: AZITHROMYCIN INJ 500 MG in SODIUM CHLOR 0.9% 250 ML INJ 250 ML IV SCH (10:50)
--- NOTE | 2016-09-16 11:40 | HHI.PR ---
Objective Objective Results - Vital Signs Date Time Temp Pulse Resp B/P Pulse Ox O2 Delivery O2 Flow Rate FiO2 09/16/16 11:30 97.2 61 15 128/60 94 09/16/16 09:11 94 21 09/16/16 07:38 98.1 67 15 153/67 95 09/16/16 05:31 98.3 68 18 141/73 93 09/16/16 02:26 93 09/15/16 23:53 95 Room Air 09/15/16 22:44 97 28 163/67 98 Room Air 09/15/16 22:40 85 28 98 Room Air 09/15/16 21:38 98.1 88 20 163/74 97 Room Air Result Diagram: 09/15/16224909/15/162249 Other Results Laboratory Tests Test 09/15/16 22:50 White Blood Count 7.1 Red Blood Count 4.01 Hemoglobin 12.7 Hematocrit 37.9 Mean Corpuscular Volume 94.6 Mean Corpuscular Hemoglobin 31.7 Mean Corpuscular Hemoglobin 33.5 Concent Red Cell Distribution Width 16.2 Platelet Count 121 Mean Platelet Volume 9.3 Neutrophils (%) (Auto) 64.5 Lymphocytes (%) (Auto) 23.3 Monocytes (%) (Auto) 10.3 Eosinophils (%) (Auto) 1.0 Basophils (%) (Auto) 0.9 Neutrophils # (Auto) 4.6 Lymphocytes # (Auto) 1.6 Monocytes # (Auto) 0.7 Eosinophils # (Auto) 0.1 Basophils # (Auto) 0.1 CBC Comment DIFF FINAL Differential Comment Prothrombin Time 12.1 Prothromb Time International 1.1 Ratio Activated Partial 27.3 Thromboplast Time Lactic Acid Level 1.8 Sodium Level 141 Potassium Level 4.7 Chloride Level 109 Carbon Dioxide Level 27.2 Anion Gap 5 Blood Urea Nitrogen 23 Creatinine 0.98 Estimat Glomerular Filtration 54 Rate Random Glucose 169 Calcium Level 7.9 Magnesium Level 1.9 Total Bilirubin 0.5 Aspartate Amino Transf 61 (AST/SGOT) Alanine Aminotransferase 34 (ALT/SGPT) Alkaline Phosphatase 381 Total Creatine Kinase 102 Creatine Kinase MB 3.2 Troponin I LESS THAN 0.02 C-Reactive Protein 0.50 B-Type Natriuretic Peptide 130 Total Protein 7.5 Albumin 2.7 Date/Time Procedure Status Source Growth 09/15/16 22:55 Aerobic Blood Culture - Preliminary Resulted Blood Peripheral NO GROWTH IN 1 DAY 09/15/16 22:55 Anaerobic Blood Culture - Preliminary Resulted Blood Peripheral NO GROWTH IN 1 DAY Physical Exam Physical Exam PHYSICAL EXAMINATION GENERAL: This is a well-developed, well-nourished female who appears to be in no acute distress. She is alert and awake, []. HEAD: Normocephalic without any lesion or mass noted. Facial features appear symmetric. EYES: [place], Normal eye movement, [] Icterus. [] Conj congestion. OROPHARYNGEAL: Oropharynx without erythema or edema. MOUTH/THROAT: Tongue midline []. Buccal mucosa is moist []. NECK: Supple. No nuchal rigidity or lymphadenopathy. Trachea midline without deviation. Thyroid not palpable, no bruits appreciated. CARDIAC: Regular rhythm, regular rate, S1 and S2 are heard. Murmur []; no gallops or rubs. LUNGS: Clear to auscultation bilaterally. [] wheeze, [] rhonchi or [] rale. No use of accessory muscles on inspiration or expiration. ABDOMEN: Soft, nontender, no organomegaly or masses. Bowel sounds are heard in all four quadrants. No rebound. No guarding. EXTREMITIES: [] edema. Pulses equal bilateral. [] cyanosis. NEUROLOGICAL: Patient mood and affect appropriate. Cranial nerves II through XII grossly intact. Muscle strength 5/5 in the upper and lower extremities bilaterally. Deep tendon reflexes are 2+ in the upper and lower extremities bilaterally. SKIN:Warm and moist PSYCH: Mood and affect appropriate A/P Assessment and Plan patient seen and examined please refer to admission H & P for details 86 yr old female admitted with COPd exacerbation, failed outpatient treatment continue antibiotics, methylprednisolone duonebs still very congested oxygen plan of care discussed with patient , Linda WESTON no family at bedside Nora Garcia MD Sep 16, 2016 11:40
[2016-09-16] MEDS: MONTELUKAST SODIUM 10 MG TAB PO SCH (21:00)
[2016-09-16] MEDS ORDERED: PARO30TA2 PO (21:02)
[2016-09-16] MEDS: guaiFENesin E.R. 600 MG TAB PO SCH (21:12)
[2016-09-16] MEDS: PRAVASTATIN SOD 10 MG TAB PO SCH (21:12)
[2016-09-16] MEDS: MIRTAZAPINE 15 MG TAB PO SCH (21:12)
[2016-09-17] MEDS: cefTRIAXone INJ 1,000 MG in SODIUM CHLORIDE 0.9% INJ 100 ML IV SCH (02:03)
[2016-09-17] MEDS: RESP: ALBUTEROL 2.5 MG/IPRATROPIUM 0.5 MG NEB (SCH) INH ×4 (03:46→20:00)
[2016-09-17] MEDS: methylPREDNISolone SOD SUCC 125 MG/2 ML VIAL IVP SCH ×3 (05:33→17:26)
[2016-09-17] MEDS: LEVOTHYROXINE SODIUM 150 MCG TAB PO SCH (05:33)
[2016-09-17 05:36] VITALS: BP 130/68; PULSE 56; RESP 18; TEMP 98.6; O2SAT 95
[2016-09-17] MEDS: BENZONATATE 100 MG CAP PO PRN ×2 (05:48→21:17)
[2016-09-17] MEDS: MORPHINE SULFATE 15 MG TAB PO PRN (05:49)
[2016-09-17 07:45] VITALS: BP 184/98; PULSE 69; RESP 15; TEMP 98.8; O2SAT 95
[2016-09-17] MEDS: APIXABAN 2.5 MG TABLET PO SCH (07:49)
[2016-09-17] MEDS: guaiFENesin E.R. 600 MG TAB PO SCH ×2 (07:50→21:17)
[2016-09-17] MEDS: ATENOLOL 50 MG TAB PO SCH (07:56)
[2016-09-17] MEDS: SODIUM CHLORIDE 0.9% FLUSH 10 ML FLUSH IV FLUSH SCH ×2 (07:59→21:00)
[2016-09-17 08:28] VITALS: O2SAT 98
[2016-09-17] MEDS: RESP: ALBUTEROL 2.5 MG/IPRATROPIUM 0.5 MG NEB (PRN) NEB ×2 (08:28→15:58)
--- NOTE | 2016-09-17 08:31 | HHI.PR ---
Subjective Subjective Remarks still coughing congested, but no sputum production rm air afebrile weak (Radha Shanks) Review of Systems Constitutional Constitutional: Fatigue, Weakness Constitutional Remarks 12 point ROS done positives noted (Radha Shanks) Ears and Nose Ears and Nose: Congestion (Radha Shanks) Throat Throat: Hoarse (Radha Shanks) Pulmonary Respiratory: Coughing, Shortness of Breath, Wheezing (Radha Shanks) Musculoskeletal MS: Weakness (Radha Shanks) Psychiatric Psychiatric: Normal Mood, Anxiety (Radha Shanks) Vitals/Results Vital Signs Vital Signs Date Time Temp Pulse Resp B/P Pulse Ox O2 Delivery O2 Flow Rate FiO2 09/17/16 07:45 98.8 69 15 184/98 95 09/17/16 05:36 98.6 56 18 95 130/68 09/16/16 23:56 98.1 55 18 187/70 93 09/16/16 22:20 18 09/16/16 21:02 98.4 74 16 144/65 94 09/16/16 19:54 93 21 09/16/16 16:15 98.5 58 15 154/67 94 09/16/16 11:30 97.2 61 15 128/60 94 09/16/16 09:11 94 21 (Radha Shanks) CBC/BMP: 09/15/16 2250 09/15/16 2250 Current Medications Administered Medications Medications (Trade) Dose Ordered Sig/Jasmina Route PRN Reason Start Time Stop Time Status Last Admin Dose Admin Sodium Chloride (NS Flush) 2 ml BID IV FLUSH 09/16/16 09:00 09/16/16 21:12 Sodium Chloride (NS Flush) 2 ml UNSCH PRN IV FLUSH FLUSH AFTER USING IV ACCESS 09/16/16 02:15 09/16/16 05:47 Methylprednisolone Sodium Succinate (SoluMEDROL INJ) 60 mg Q6H IVP 09/16/16 06:00 09/17/16 05:33 Morphine Sulfate 15 mg 15 mg Q6H PRN PO severe pain 09/16/16 02:15 09/17/16 05:49 Ceftriaxone Sodium/Sodium Chloride (Rocephin Inj/NS Inj) 100 ml @ 200 mls/hr Q24H IV 09/17/16 02:00 09/17/16 02:03 Apixaban (Eliquis) 2.5 mg DAILY PO 09/16/16 09:00 09/17/16 07:49 Atenolol (Tenormin) 50 mg DAILY PO 09/16/16 09:00 09/17/16 07:56 Benzonatate (Tessalon) 100 mg TID PRN PO COUGH 09/16/16 07:45 09/17/16 05:48 Levothyroxine Sodium (Synthroid) 150 mcg DAILY@06 PO 09/16/16 09:00 09/17/16 05:33 Mirtazapine (Remeron) 45 mg HS PO 09/16/16 21:00 09/16/16 21:12 Montelukast Sodium (Singulair) 10 mg HS PO 09/16/16 21:00 09/16/16 21:00 Pravastatin Sodium 10 mg 10 mg HS PO 09/16/16 21:00 09/16/16 21:12 Azithromycin/ Sodium Chloride (Zithromax Inj/ NS 250 ml Inj) 250 ml @ 250 mls/hr Q24H IV 09/16/16 10:00 09/16/16 10:50 Guaifenesin (Mucinex Er) 600 mg BID PO 09/16/16 21:00 09/17/16 07:50 (Radha Shanks) Physical Exam General General Appearance: Well Developed (for her age), Anxious (Radha Shanks) Eyes Eye Exam: Pupils Reactive (Radha Shanks) Ears & Nose Ears & Nose Exam: Nasal Mucosa [place] (Radha Shanks) Throat Throat Exam: Oral Mucosa [place] & Moist (Radha Shanks) Neck Neck Exam: Neck Supple (Radha Shanks) Pulmonary Resp Exam: Crackles, Diminished Breath Sounds, Poor Inspiratory Effort (low volumes), Labored (mild with coughing) (Radha Shanks) Cardiology CV Exam: Regular (Radha Shanks) Gastrointestinal/Abdomen GI Exam: Soft, Non-Tender, Bowel Sounds Present (Radha Shanks) Musculoskeletal MS Exam: Joints Intact, Atrophy (Radha Shanks) Integumentary Skin Exam: Warm, Dry, Intact (Radha Shanks) Extremeties Extremeties Remarks Minimal trace pedal edema (Radha Shanks) Neurologic Neuro Exam: Awake, Oriented, Speech Clear, Moving All Extremities (Radha Shanks) Assessment/Plan Assessment/Plan (1) COPD with exacerbation (2) Bronchitis (3) Breast cancer, left (4) Failure of outpatient treatment (5) Hx of deep venous thrombosis (6) Hx pulmonary embolism (7) HTN (hypertension) Assessment Vital signs reviewed, heart rate in the mid 50s, asymptomatic but does have history of dizziness, afebrile Labs reviewed mild dehydration B UN 23, encourage by mouth fluids COPD exacerbation, with bronchitis, will add incentive spirometry at bedside Failure of outpatient therapy antibiotics, steroids, oxygen if warranted Unable to obtain sputum culture, no sputum production yet Increased duo nebs to every 4 hours Cough and mucus control History DVT and PE Eliquis Hypertension, stable Medical management Left breast cancer, recently diagnosed. lumpectomy with Dr. Schroeder in September. Prior history of bladder cancer, neuroendocrine malignancy Patient to follow-up with radiation oncology as outpatient Continue with Elifaviola for DVT prophylaxis Plan of care has been discussed with the patient , female family member Further management of the patient will be dependent on the hospital course, currently patient continues to have shortness of breath and raspy lung sounds with low volumes Patient may need inpatient status change due to current symptoms of shortness of breath and uncontrolled COPD exacerbation Discussed with patient and family Discussed with Dr. garcia, seen on her behalf (Radha Shanks) Assessment/Plan patient seen and examined agree with above assessment and plan still very congested, coughing, anxious family at bedside continue current treatment BP high Add lisinopril switch to inpatient incentive spirometer wants Morphine ER resumed discussed with patient and family at bedside discussed with Nursing staff discussed with Radha WESTON labs in am (Nora Garcia MD) Radha Shanks Sep 17, 2016 08:31 Nora Garcia MD Sep 17, 2016 11:30
[2016-09-17] MEDS: AZITHROMYCIN INJ 500 MG in SODIUM CHLOR 0.9% 250 ML INJ 250 ML IV SCH (10:44)
[2016-09-17] MEDS: LISINOPRIL 5 MG TAB PO SCH ×2 (10:45→21:18)
[2016-09-17] MEDS: MORPHINE SULFATE 15 MG CONTROLLED RELEASE TAB PO SCH ×2 (13:26→21:18)
[2016-09-17 14:59] VITALS: BP 165/72; PULSE 90; RESP 15; TEMP 98.8; O2SAT 96
[2016-09-17 18:37] VITALS: BP 159/69; PULSE 77; RESP 19; TEMP 98.3; O2SAT 93
[2016-09-17 20:00] VITALS: BP 174/79; PULSE 84; RESP 19; TEMP 98.6; O2SAT 95
[2016-09-17] MEDS: MIRTAZAPINE 15 MG TAB PO SCH (21:17)
[2016-09-17] MEDS: PRAVASTATIN SOD 10 MG TAB PO SCH (21:17)
[2016-09-17] MEDS: MONTELUKAST SODIUM 10 MG TAB PO SCH (21:18)
[2016-09-18] VITALS (10 sets, daily range): BP systolic 139–207; BP diastolic 73–97; PULSE 57–74; RESP 18–20; TEMP 97.9–98.4; O2SAT 92–97
[2016-09-18] MEDS: methylPREDNISolone SOD SUCC 125 MG/2 ML VIAL IVP SCH ×5 (00:14→23:04)
[2016-09-18] MEDS: cefTRIAXone INJ 1,000 MG in SODIUM CHLORIDE 0.9% INJ 100 ML IV SCH (02:58)
[2016-09-18] MEDS: MORPHINE SULFATE 15 MG TAB PO PRN ×2 (03:51→23:03)
[2016-09-18] MEDS: RESP: ALBUTEROL 2.5 MG/IPRATROPIUM 0.5 MG NEB (SCH) INH ×6 (04:43→20:41)
[2016-09-18] MEDS: RESP: ALBUTEROL 2.5 MG/IPRATROPIUM 0.5 MG NEB (PRN) NEB (04:46)
[2016-09-18] MEDS: LEVOTHYROXINE SODIUM 150 MCG TAB PO SCH (05:56)
[2016-09-18] MEDS: LISINOPRIL 5 MG TAB PO SCH (09:06)
[2016-09-18] MEDS: guaiFENesin E.R. 600 MG TAB PO SCH ×2 (09:06→22:50)
[2016-09-18] MEDS: ATENOLOL 50 MG TAB PO SCH (09:06)
[2016-09-18] MEDS: MORPHINE SULFATE 15 MG CONTROLLED RELEASE TAB PO SCH ×2 (09:07→22:50)
[2016-09-18] MEDS: SODIUM CHLORIDE 0.9% FLUSH 10 ML FLUSH IV FLUSH SCH ×2 (09:07→22:49)
[2016-09-18] MEDS: APIXABAN 2.5 MG TABLET PO SCH (09:07)
[2016-09-18 09:13] LABS: BICARBONATE 24.7 MEQ/L (21.0-32.0)
[2016-09-18] MEDS: BENZONATATE 100 MG CAP PO PRN ×2 (09:48→23:03)
[2016-09-18 09:56] LABS: AUTOMATED NEUTROPHIL # 10.1 TH/MM3 (1.8-7.7); HEMATOCRIT 38.8 % (35.0-46.0); HEMO FLAGS DIFF FINAL; LYMPH % 5.3 % (9.0-44.0); LYMPHOCYTE # 0.6 TH/MM3 (1.0-4.8); MEAN CORPUSCULAR HEMOGLOBIN 31.6 PG (27.0-34.0); MEAN CORPUSCULAR HGB CONC 32.9 % (32.0-36.0); MONO % 4.8 % (0.0-8.0); NEUT % 89.9 % (16.0-70.0); PLATELET COUNT 100 TH/MM3 (150-450); RED BLOOD COUNT 4.04 MIL/MM3 (4.00-5.30); RED CELL DISTRIBUTION WIDTH 16.3 % (11.6-17.2); WHITE BLOOD COUNT 11.2 TH/MM3 (4.0-11.0)
[2016-09-18] MEDS: AZITHROMYCIN INJ 500 MG in SODIUM CHLOR 0.9% 250 ML INJ 250 ML IV SCH (11:39)
--- NOTE | 2016-09-18 14:12 | HHI.PR ---
Subjective Interval History awake alert and oriented no fever off oxygen looks well rested, but feels about the same still coughing no family at bed side Review of Systems Constitutional Constitutional: Fatigue, Weakness Ears and Nose Ears and Nose: Congestion Throat Throat: Hoarse Pulmonary Respiratory: Coughing, Shortness of Breath, Wheezing Musculoskeletal MS: Weakness Psychiatric Psychiatric: Normal Mood, Anxiety Vitals/Results Intake & Output 09/17/16 09/17/16 09/18/16 14:59 22:59 06:59 Intake Total 100 ml 240 ml 108 ml Output Total 400 ml 500 ml Balance 100 ml -160 ml -392 ml Intake Oral 240 ml IV Total 100 ml 108 ml Output Urine Total 500 ml Stool Total 400 ml # Bowel Movements 0 0 Vital Signs Vital Signs Date Time Temp Pulse Resp B/P Pulse Ox O2 Delivery O2 Flow Rate FiO2 09/18/16 12:27 98.0 68 18 139/89 92 09/18/16 08:08 97 Nasal Cannula 2.00 09/18/16 07:53 98.3 66 18 180/83 95 09/18/16 07:00 Nasal Cannula 2.00 09/18/16 05:00 Nasal Cannula 2.00 09/18/16 04:30 96 21 09/18/16 04:00 97.9 57 18 177/74 95 09/18/16 00:50 98.3 74 18 162/73 93 09/18/16 00:00 Room Air 09/17/16 20:00 98.6 84 19 174/79 95 09/17/16 20:00 Room Air 09/17/16 18:37 98.3 77 19 159/69 93 09/17/16 14:59 98.8 90 15 165/72 96 CBC/BMP: 09/18/16 0734 09/18/16 0734 Lab Results Laboratory Tests Test 09/18/16 07:34 White Blood Count 11.2 TH/MM3 Red Blood Count 4.04 MIL/MM3 Hemoglobin 12.8 GM/DL Hematocrit 38.8 % Mean Corpuscular Volume 96.0 FL Mean Corpuscular Hemoglobin 31.6 PG Mean Corpuscular Hemoglobin 32.9 % Concent Red Cell Distribution Width 16.3 % Platelet Count 100 TH/MM3 Mean Platelet Volume 9.3 FL Neutrophils (%) (Auto) 89.9 % Lymphocytes (%) (Auto) 5.3 % Monocytes (%) (Auto) 4.8 % Eosinophils (%) (Auto) 0.0 % Basophils (%) (Auto) 0.0 % Neutrophils # (Auto) 10.1 TH/MM3 Lymphocytes # (Auto) 0.6 TH/MM3 Monocytes # (Auto) 0.5 TH/MM3 Eosinophils # (Auto) 0.0 TH/MM3 Basophils # (Auto) 0.0 TH/MM3 CBC Comment DIFF FINAL Differential Comment Sodium Level 136 MEQ/L Potassium Level 5.0 MEQ/L Chloride Level 106 MEQ/L Carbon Dioxide Level 24.7 MEQ/L Anion Gap 5 MEQ/L Blood Urea Nitrogen 32 MG/DL Creatinine 0.78 MG/DL Estimat Glomerular Filtration 70 ML/MIN Rate Random Glucose 268 MG/DL Calcium Level 8.2 MG/DL Physical Exam General General Appearance: Well Developed (for her age), Anxious Eyes Eye Exam: Pupils Reactive Ears & Nose Ears & Nose Exam: Nasal Mucosa [place] Throat Throat Exam: Oral Mucosa [place] & Moist Neck Neck Exam: Neck Supple Pulmonary Resp Remarks better air entry coarse breath sounds rhonchi no wheezing appreciated today Cardiology CV Exam: Regular Gastrointestinal/Abdomen GI Exam: Soft, Non-Tender, Bowel Sounds Present Musculoskeletal MS Exam: Joints Intact, Atrophy Integumentary Skin Exam: Warm, Dry, Intact Neurologic Neuro Exam: Awake, Oriented, Speech Clear, Moving All Extremities Assessment/Plan Assessment/Plan Assessment/Plan (1) COPD with exacerbation (2) Bronchitis (3) Breast cancer, left (4) Failure of outpatient treatment (5) Hx of deep venous thrombosis (6) Hx pulmonary embolism (7) HTN (hypertension) Assessment COPD exacerbation, with bronchitis, Failure of outpatient therapy incentive spirometry antibiotics, steroids, oxygen if warranted Unable to obtain sputum culture, no sputum production yet duo nebs to every 4 hours Cough and mucus control Better air entry today History DVT and PE Eliquis Hypertension, stable Medical management Lisinopril added Left breast cancer, recently diagnosed. lumpectomy with Dr. Schroeder in September. Prior history of bladder cancer, neuroendocrine malignancy Patient to follow-up with radiation oncology as outpatient Continue with Eliquis for DVT prophylaxis Plan of care has been discussed with the patient , labs in am Discussed Condition with: Physical Therapy Nora Garcia MD Sep 18, 2016 14:12
[2016-09-18] MEDS: hydrALAZINE HCL 10 MG TAB PO SCH ×2 (17:11→22:49)
--- NOTE | 2016-09-18 21:29 | MB ---
cc: OLIVE OLVERA JOSE R. M.D. DATE OF CONSULTATION 09/18/[address] Nora Garcia REASON FOR CONSULTATION COPD exacerbation. HISTORY OF PRESENT ILLNESS Ms. Hill is a pleasant 86-year-old female with history of recently diagnosed cancer of the breast. She is seeing Dr. Morris and was being planned for radiation treatment. She started having cough and congestion, had some wheezing. Did not have any fever or chills. She was given antibiotic and steroid. She did not get better, [facility] was given nebulizer treatment. She still did not get better and daughter brought her to the hospital. She still feels congested. Denies any chest pain, has shortness of breath and has wheezing. She had a workup done. Her WBC count 11.2, hemoglobin 12.8, hematocrit 38.8, MCV 96, platelet 100. INR is 1.1. Sodium 136, potassium 5.0, chloride 106, CO2 24, BUN 32, creatinine 0.78. IMAGING Chest x-ray is under inflated. No acute cardiopulmonary process. PAST MEDICAL HISTORY significant for: 1. A history of COPD. 2. Transient ischemic attack. 3. History of bladder and bowel cancer. 4. Cystectomy and she has a urostomy bag. 5. Recently diagnosed with cancer of the breast status post lumpectomy. 6. History of deep venous thrombosis. MEDICATIONS She is currently takin. Lisinopril 10 mg a day. 2. Hydralazine 10 milligrams q.8h. 3. Morphine 15 mg q. 12. 4. Albuterol/Atrovent nebulizer treatment. 5. Rocephin one gram daily. 6. Mirtazapine 45 milligrams at night time. 7. Singulair 10 mg at nighttime. 8. Pravastatin 10 milligrams daily. 9. Mucinex 600 mg twice a day. 10. Zithromax 500 milligrams daily. 11. Eliquis 2.5 mg a day. 12. Levothyroxine 150 mcg a day. 13. Tessalon 100 mg three times a day. 14. Solu-Medrol 60 milligrams q.6h. ALLERGIES SHE IS ALLERGIC TO DRAMAMINE, CODEINE, AMBIEN, HMG-COA REDUCTASE INHIBITOR AND KEFLEX. SOCIAL HISTORY She has no history of smoking. No alcohol use. 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 . She has recently moved from [place], [place] to be with her daughter. FAMILY HISTORY She has five children. Daughter lives over here. REVIEW OF SYSTEMS Normally she is up, around and active. Denies any weight loss. No headache or dizziness. No seizure or epilepsy. Does have a history of TIA. PHYSICAL EXAMINATION GENERAL: Elderly female, mild short of breath. VITAL SIGNS: Blood pressure 139/89, heart rate 68, respiratory rate 18, temperature 98. HEENT: pupils are equal and reactive to light. She had bilateral cataract surgery done. Oral mucosa and nasal mucosa normal. NECK: Supple. JVP not raised. CHEST: Air entry equal bilaterally. She has rhonchi and few crackles. CARDIOVASCULAR: S1-S2 normal. ABDOMEN: Benign. She has urostomy bag. EXTREMITIES: No edema. IMPRESSION 1. COPD exacerbation. 2. Bronchitis. 3. Pulmonary congestion. 4. Thrombocytopenia. 5. Mild thrombocytopenia. 6. Recent diagnosis of cancer of the breast. 7. Cancer of the bladder status post cystectomy and urostomy bag. History of transient ischemic attack. 8. History of DVT and PE. PLAN We will give aerosol treatment with albuterol and Atrovent. I will start her on Symbicort 80/4.5 two puffs twice a day and . Continue antibiotic and steroids. Encourage her to use . Further treatment will depend on the course in the hospital. Thank you Dr. Nora Garcia for this consultation. MD MARISEL Nascimento/DOROTHY /6:02 PM /8:09 PM
[2016-09-18] MEDS: LISINOPRIL 10 MG TAB PO SCH (22:49)
[2016-09-18] MEDS: BUDESONIDE-FORMOTEROL 80/4.5 MCG INHALER INH SCH (22:49)
[2016-09-18] MEDS: PRAVASTATIN SOD 10 MG TAB PO SCH (22:52)
[2016-09-18] MEDS: MONTELUKAST SODIUM 10 MG TAB PO SCH (22:52)
[2016-09-18] MEDS: MIRTAZAPINE 15 MG TAB PO SCH (22:52)
[2016-09-18] MEDS: hydrALAZINE HCL 25 MG TAB PO PRN (23:39)
[2016-09-19] VITALS (10 sets, daily range): BP systolic 127–181; BP diastolic 74–97; PULSE 60–100; RESP 18–20; TEMP 97.1–98.7; O2SAT 91–98
[2016-09-19] MEDS: RESP: ALBUTEROL 2.5 MG/IPRATROPIUM 0.5 MG NEB (SCH) INH ×7 (00:25→23:30)
[2016-09-19] MEDS: cefTRIAXone INJ 1,000 MG in SODIUM CHLORIDE 0.9% INJ 100 ML IV SCH (03:15)
[2016-09-19] MEDS: LEVOTHYROXINE SODIUM 150 MCG TAB PO SCH (05:07)
[2016-09-19] MEDS: methylPREDNISolone SOD SUCC 125 MG/2 ML VIAL IVP SCH ×3 (05:07→16:24)
[2016-09-19] MEDS: hydrALAZINE HCL 10 MG TAB PO SCH ×2 (05:07→13:34)
[2016-09-19] MEDS: MORPHINE SULFATE 15 MG TAB PO PRN ×2 (05:11→10:32)
--- NOTE | 2016-09-19 07:38 | RADRPT ---
EXAM DATE/TIME: 09/19/2016 06:37 [facility] COMPARISON: CHEST SINGLE AP, September 15, 2016, 23:30. INDICATIONS : Short of breath, coughing MEDICAL HISTORY : Hypertension. SURGICAL HISTORY : heart valve replaced ENCOUNTER: Subsequent ACUITY: 4 - 6 days PAIN SCORE: 0/10 LOCATION: Bilateral chest FINDINGS: The lung volumes with mild linear opacity in the right midlung zone. Cardiomediastinal contours are s table given differences in technique. Remainder of the exam is unchanged. CONCLUSION: 1. Low lung volumes with right mid lung atelectasis. Taz Loomis MD on September 19, 2016 at 7:34 Board Certified Radiologist. This report was verified electronically.
[2016-09-19] MEDS: guaiFENesin E.R. 600 MG TAB PO SCH ×2 (08:12→21:15)
[2016-09-19] MEDS: APIXABAN 2.5 MG TABLET PO SCH (08:13)
[2016-09-19] MEDS: MORPHINE SULFATE 15 MG CONTROLLED RELEASE TAB PO SCH ×2 (08:13→21:17)
[2016-09-19] MEDS: SODIUM CHLORIDE 0.9% FLUSH 10 ML FLUSH IV FLUSH SCH ×2 (08:13→21:17)
[2016-09-19] MEDS: BUDESONIDE-FORMOTEROL 80/4.5 MCG INHALER INH SCH ×2 (08:13→21:20)
[2016-09-19] MEDS: LISINOPRIL 10 MG TAB PO SCH ×2 (08:13→21:16)
[2016-09-19] MEDS: ATENOLOL 50 MG TAB PO SCH (08:13)
[2016-09-19 08:22] LABS: AUTOMATED NEUTROPHIL # 7.7 TH/MM3 (1.8-7.7); BASOPHIL % 0.1 % (0.0-2.0); HEMO FLAGS DIFF FINAL; LYMPH % 5.8 % (9.0-44.0); LYMPHOCYTE # 0.5 TH/MM3 (1.0-4.8); MEAN CELL VOLUME 94.2 FL (80.0-100.0); MEAN CORPUSCULAR HEMOGLOBIN 31.5 PG (27.0-34.0); MEAN CORPUSCULAR HGB CONC 33.4 % (32.0-36.0); MONO % 4.3 % (0.0-8.0); NEUT % 89.8 % (16.0-70.0); PLATELET COUNT 101 TH/MM3 (150-450); RED BLOOD COUNT 4.14 MIL/MM3 (4.00-5.30); RED CELL DISTRIBUTION WIDTH 16.1 % (11.6-17.2); WHITE BLOOD COUNT 8.6 TH/MM3 (4.0-11.0)
[2016-09-19 08:50] LABS: BICARBONATE 27.2 MEQ/L (21.0-32.0); POTASSIUM 4.8 MEQ/L (3.5-5.1)
[2016-09-19] MEDS: AZITHROMYCIN INJ 500 MG in SODIUM CHLOR 0.9% 250 ML INJ 250 ML IV SCH (09:40)
[2016-09-19] MEDS: hydrALAZINE HCL 25 MG TAB PO PRN (11:45)
[2016-09-19] MEDS: BENZONATATE 100 MG CAP PO PRN ×2 (11:45→21:16)
--- NOTE | 2016-09-19 12:12 | HHI.PR ---
Subjective Subjective Remarks has been up this am washed off and states she tolerated well awake, alert family in, using her incentive jayda hrly. hoarseness improved, (Radha Shanks) Review of Systems Constitutional Constitutional: Fatigue, Weakness Constitutional Remarks 12 point ROS done positives noted (Radha Shanks) Ears and Nose Ears and Nose: Congestion (Radha Shanks) Throat Throat: Hoarse (improving) (Radha Shanks) Pulmonary Respiratory: Coughing, Shortness of Breath, Wheezing (Radha Shanks) Musculoskeletal MS: Weakness (Radha Shanks) Psychiatric Psychiatric: Normal Mood, Anxiety (improved) (Radha Shanks) Vitals/Results Intake & Output 09/18/16 09/18/16 09/19/16 15:00 23:00 07:00 Intake Total 1080 ml 360 ml Balance 1080 ml 360 ml Intake Oral 1080 ml 360 ml # Voids 2 1 Vital Signs Vital Signs Date Time Temp Pulse Resp B/P Pulse Ox O2 Delivery O2 Flow Rate FiO2 09/19/16 11:54 98.0 100 18 98 09/19/16 11:34 20 09/19/16 09:16 16 09/19/16 08:17 97 Nasal Cannula 2.00 09/19/16 08:03 98.7 82 18 127/90 91 09/19/16 07:00 Nasal Cannula 2.00 09/19/16 05:06 Nasal Cannula 2.00 09/19/16 04:00 97.1 80 18 173/74 94 09/19/16 03:43 94 Nasal Cannula 2.00 09/19/16 00:27 96 Nasal Cannula 2.00 09/19/16 00:00 98.1 80 18 179/78 96 170/76 09/18/16 22:16 Nasal Cannula 2.00 09/18/16 20:43 97 Nasal Cannula 2.00 09/18/16 20:00 98.1 65 20 151/94 94 09/18/16 15:44 98.4 74 20 207/97 97 09/18/16 15:43 207/86 09/18/16 12:27 98.0 68 18 139/89 92 (Radha Shanks) CBC/BMP: 09/19/16 0706 09/19/16 0706 Lab Results Laboratory Tests Test 09/19/16 07:06 White Blood Count 8.6 TH/MM3 Red Blood Count 4.14 MIL/MM3 Hemoglobin 13.0 GM/DL Hematocrit 39.0 % Mean Corpuscular Volume 94.2 FL Mean Corpuscular Hemoglobin 31.5 PG Mean Corpuscular Hemoglobin 33.4 % Concent Red Cell Distribution Width 16.1 % Platelet Count 101 TH/MM3 Mean Platelet Volume 9.1 FL Neutrophils (%) (Auto) 89.8 % Lymphocytes (%) (Auto) 5.8 % Monocytes (%) (Auto) 4.3 % Eosinophils (%) (Auto) 0.0 % Basophils (%) (Auto) 0.1 % Neutrophils # (Auto) 7.7 TH/MM3 Lymphocytes # (Auto) 0.5 TH/MM3 Monocytes # (Auto) 0.4 TH/MM3 Eosinophils # (Auto) 0.0 TH/MM3 Basophils # (Auto) 0.0 TH/MM3 CBC Comment DIFF FINAL Differential Comment Sodium Level 138 MEQ/L Potassium Level 4.8 MEQ/L Chloride Level 106 MEQ/L Carbon Dioxide Level 27.2 MEQ/L Anion Gap 5 MEQ/L Blood Urea Nitrogen 35 MG/DL Creatinine 0.86 MG/DL Estimat Glomerular Filtration 63 ML/MIN Rate Random Glucose 273 MG/DL Calcium Level 8.0 MG/DL Current Medications Administered Medications Medications (Trade) Dose Ordered Sig/Jasmina Route PRN Reason Start Time Stop Time Status Last Admin Dose Admin Sodium Chloride (NS Flush) 2 ml BID IV FLUSH 09/16/16 09:00 09/19/16 08:13 Sodium Chloride (NS Flush) 2 ml UNSCH PRN IV FLUSH FLUSH AFTER USING IV ACCESS 09/16/16 02:15 09/16/16 05:47 Methylprednisolone Sodium Succinate (SoluMEDROL INJ) 60 mg Q6H IVP 09/16/16 06:00 09/19/16 11:34 Morphine Sulfate 15 mg 15 mg Q6H PRN PO severe pain 09/16/16 02:15 09/19/16 10:32 Ceftriaxone Sodium/Sodium Chloride (Rocephin Inj/NS Inj) 100 ml @ 200 mls/hr Q24H IV 09/17/16 02:00 09/19/16 03:15 Apixaban (Eliquis) 2.5 mg DAILY PO 09/16/16 09:00 09/19/16 08:13 Atenolol (Tenormin) 50 mg DAILY PO 09/16/16 09:00 09/19/16 08:13 Benzonatate (Tessalon) 100 mg TID PRN PO COUGH 09/16/16 07:45 09/19/16 11:45 Levothyroxine Sodium (Synthroid) 150 mcg DAILY@06 PO 09/16/16 09:00 09/19/16 05:07 Mirtazapine (Remeron) 45 mg HS PO 09/16/16 21:00 09/18/16 22:52 Montelukast Sodium (Singulair) 10 mg HS PO 09/16/16 21:00 09/18/16 22:52 Pravastatin Sodium 10 mg 10 mg HS PO 09/16/16 21:00 09/18/16 22:52 Azithromycin/ Sodium Chloride (Zithromax Inj/ NS 250 ml Inj) 250 ml @ 250 mls/hr Q24H IV 09/16/16 10:00 09/19/16 09:40 Guaifenesin (Mucinex Er) 600 mg BID PO 09/16/16 21:00 09/19/16 08:12 Morphine Sulfate (Oramorph Sr) 15 mg Q12HR PO 09/17/16 13:00 09/19/16 08:13 Lisinopril (Prinivil) 10 mg Q12HR PO 09/18/16 21:00 09/19/16 08:13 Hydralazine HCl (Apresoline) 10 mg Q8HR PO 09/18/16 15:45 09/19/16 05:07 Hydralazine HCl (Apresoline) 25 mg Q8HR PRN PO SYS BP GREATER THAN 170 MMHG 09/18/16 15:45 09/19/16 11:45 Budesonide/ Formoterol Fumarate (Symbicort 80-4.5 Mcg Inh) 2 puff Q12HR INH 09/18/16 21:00 09/19/16 08:13 (Radha Shanks) Physical Exam General General Appearance: Well Developed (for her age), Anxious ([place],Radha M. YACHT MASTER) Eyes Eye Exam: Pupils Reactive (DimitrisRadha M. YACHT MASTER) Ears & Nose Ears & Nose Exam: Nasal Mucosa [place] (Arch CapeRadha M. YACHT MASTER) Throat Throat Exam: Oral Mucosa [place] & Moist (DimitrisRadha M. YACHT MASTER) Neck Neck Exam: Neck Supple (Arch CapeRadha M. YACHT MASTER) Cardiology CV Exam: Regular (Arch CapeRadha M. YACHT MASTER) Gastrointestinal/Abdomen GI Exam: Soft, Non-Tender, Bowel Sounds Present (Arch CapeRadha M. YACHT MASTER) Musculoskeletal MS Exam: Joints Intact, Atrophy (DimitrisRadha M. YACHT MASTER) Integumentary Skin Exam: Warm, Dry, Intact ([place],Radha M. YACHT MASTER) Extremeties Extremeties Remarks Minimal trace pedal edema, improved ([place],Radha M. YACHT MASTER) Neurologic Neuro Exam: Awake, Oriented, Speech Clear, Moving All Extremities ([place] Radha M. YACHT MASTER) Assessment/Plan Assessment/Plan Assessment/Plan (1) COPD with exacerbation (2) Bronchitis ,acute (3) Breast cancer, left (4) Failure of outpatient treatment (5) Hx of deep venous thrombosis (6) Hx pulmonary embolism (7) HTN (hypertension) Assessment vitals reviewed , monitor BP 173/74 this am, afebrile labs reviewed, leukocytosis, 11.3 , BUN 32, drinking adequate amts of fluids and fair /good nutrition COPD exacerbation, with acute bronchitis, Failure of outpatient therapy, appreciate pulmonary consult and input incentive spirometry and using every hr and prn antibiotics, steroids, oxygen if warranted afebrile Unable to obtain sputum culture, no sputum production yet duo nebs to every 4 hours Cough and mucus control, improved and looseer, encouraged to cough up in cup, deep breath and increase activity History DVT and PE, medical management Eliquis Hypertension, stable Medical management Lisinopril added Left breast cancer, recently diagnosed. lumpectomy with Dr. Schroeder in September. Prior history of bladder cancer, neuroendocrine malignancy Patient to follow-up with radiation oncology as outpatient Continue with [place] for DVT prophylaxis Plan of care has been discussed with the patient, and family in rm. D/W Dr. Garcia, seen on her behalf D/W nurse CHATTERJEE planning within the next few days, possible Sat., will continue to eval secretion controll (Radha Shanks) Assessment/Plan patient seen and examined agree with above assessment and plan slowly improving looks tiored appreciate Pulm input son at bedside increase hydralazine to 25 mg po q8h discussed with patient and son at bedside discussed with Radha WESTON (Nora Garcia MD) Radha Shanks Sep 19, 2016 12:12 Nora Garcia MD Sep 19, 2016 15:02
--- NOTE | 2016-09-19 19:18 | HHI.PR ---
Subjective Remarks 86 YOWF with COPD, persistant cough, not able to expactorate No Fever No Headache Did't sleep well, feels tired CXR mild atelactesis Objective Vital Signs Vital Signs Date Time Temp Pulse Resp B/P Pulse Ox O2 Delivery O2 Flow Rate FiO2 09/19/16 16:00 98 Nasal Cannula 2.00 09/19/16 13:33 181/83 09/19/16 11:54 98.0 100 18 98 09/19/16 11:34 20 09/19/16 09:16 16 09/19/16 08:17 97 Nasal Cannula 2.00 09/19/16 08:03 98.7 82 18 127/90 91 09/19/16 07:00 Nasal Cannula 2.00 09/19/16 05:06 Nasal Cannula 2.00 09/19/16 04:00 97.1 80 18 173/74 94 09/19/16 03:43 94 Nasal Cannula 2.00 09/19/16 00:27 96 Nasal Cannula 2.00 09/19/16 00:00 98.1 80 18 179/78 96 170/76 09/18/16 22:16 Nasal Cannula 2.00 09/18/16 20:43 97 Nasal Cannula 2.00 09/18/16 20:00 98.1 65 20 151/94 94 I/O 09/18/16 09/18/16 09/18/16 09/19/16 09/19/16 09/19/16 07:00 15:00 23:00 07:00 15:00 23:00 Intake Total 108 ml 1080 ml 360 ml Output Total 500 ml Balance -392 ml 1080 ml 360 ml Intake Oral 1080 ml 360 ml IV Total 108 ml Output Urine Total 500 ml # Voids 2 1 # Bowel Movements 0 Result Diagram: 09/19/16 0706 09/19/16 0706 Objective Remarks GENERAL:MBMN WF, NAD SKIN: Warm and dry. HEAD: Normocephalic. EYES: No scleral icterus. No injection or drainage. NECK: Supple, trachea midline. No JVD or lymphadenopathy. CARDIOVASCULAR: Regular rate and rhythm without murmurs, gallops, or rubs. RESPIRATORY: Breath sounds equal bilaterally. No accessory muscle use. Harsh BS GASTROINTESTINAL: Abdomen soft, non-tender, nondistended. MUSCULOSKELETAL: No cyanosis, or edema. BACK: Nontender without obvious deformity. No CVA tenderness. A/P Assessment and Plan COPD Av Bronchitis Atelactesis HTN Ca breast PLAN: DW pt and daughter at BS Cont Abx Aerosol nebs Robitussin DM cough syp Cont Steroids BP mgmnt per Primary Satish Calabrese MD Sep 19, 2016 19:18
[2016-09-19] MEDS: MONTELUKAST SODIUM 10 MG TAB PO SCH (21:15)
[2016-09-19] MEDS: guaiFENesin/DEXTROMETHORPHAN 200 MG/20 MG/10 ML CUP PO SCH (21:15)
[2016-09-19] MEDS: MIRTAZAPINE 15 MG TAB PO SCH (21:16)
[2016-09-19] MEDS: hydrALAZINE HCL 25 MG TAB PO SCH (21:16)
[2016-09-19] MEDS: PRAVASTATIN SOD 10 MG TAB PO SCH (21:16)
[2016-09-20] VITALS (9 sets, daily range): BP systolic 109–198; BP diastolic 65–92; PULSE 64–95; RESP 17–21; TEMP 97.9–98.7; O2SAT 93–99
[2016-09-20] MEDS: hydrALAZINE HCL 25 MG TAB PO PRN (01:16)
[2016-09-20] MEDS: cefTRIAXone INJ 1,000 MG in SODIUM CHLORIDE 0.9% INJ 100 ML IV SCH (01:16)
[2016-09-20] MEDS: guaiFENesin/DEXTROMETHORPHAN 200 MG/20 MG/10 ML CUP PO SCH ×4 (01:17→20:36)
[2016-09-20] MEDS: methylPREDNISolone SOD SUCC 125 MG/2 ML VIAL IVP SCH ×4 (01:17→20:41)
[2016-09-20] MEDS: RESP: ALBUTEROL 2.5 MG/IPRATROPIUM 0.5 MG NEB (PRN) NEB ×2 (01:41→06:03)
[2016-09-20] MEDS: MORPHINE SULFATE 15 MG TAB PO PRN ×2 (03:21→14:12)
[2016-09-20] MEDS: RESP: ALBUTEROL 2.5 MG/IPRATROPIUM 0.5 MG NEB (SCH) INH ×6 (03:34→23:49)
[2016-09-20] MEDS: BENZONATATE 100 MG CAP PO PRN ×3 (05:39→20:49)
[2016-09-20] MEDS: hydrALAZINE HCL 25 MG TAB PO SCH ×3 (05:39→22:27)
[2016-09-20] MEDS: LEVOTHYROXINE SODIUM 150 MCG TAB PO SCH (05:39)
[2016-09-20] MEDS: guaiFENesin E.R. 600 MG TAB PO SCH ×2 (07:41→20:37)
[2016-09-20] MEDS: APIXABAN 2.5 MG TABLET PO SCH (07:41)
[2016-09-20] MEDS: MORPHINE SULFATE 15 MG CONTROLLED RELEASE TAB PO SCH ×2 (07:41→20:38)
[2016-09-20] MEDS: LISINOPRIL 10 MG TAB PO SCH ×2 (07:41→20:40)
[2016-09-20] MEDS: ATENOLOL 50 MG TAB PO SCH (07:42)
[2016-09-20] MEDS: AZITHROMYCIN INJ 500 MG in SODIUM CHLOR 0.9% 250 ML INJ 250 ML IV SCH (07:42)
[2016-09-20] MEDS: SODIUM CHLORIDE 0.9% FLUSH 10 ML FLUSH IV FLUSH SCH ×2 (07:42→20:51)
[2016-09-20] MEDS: BUDESONIDE-FORMOTEROL 80/4.5 MCG INHALER INH SCH ×2 (07:42→20:54)
--- NOTE | 2016-09-20 11:37 | HHI.PR ---
Subjective Subjective Remarks Sitting on side of the bed awake, alert Shortness of breath is exertional only for now hoarseness improved, but still persist (Radha Shanks) Review of Systems Constitutional Constitutional: Fatigue, Weakness Constitutional Remarks 12 point ROS done positives noted (Radha Shanks) Ears and Nose Ears and Nose: Congestion (Radha Shanks) Throat Throat: Hoarse (improving) (Radha Shanks) Pulmonary Respiratory: Coughing, Shortness of Breath, Wheezing (Radha Shanks) Musculoskeletal MS: Weakness (Radha Shanks) Psychiatric Psychiatric: Normal Mood, Anxiety (improved) (Radha Shanks) Vitals/Results Vital Signs Vital Signs Date Time Temp Pulse Resp B/P Pulse Ox O2 Delivery O2 Flow Rate FiO2 09/20/16 08:43 18 09/20/16 08:00 98.4 82 18 109/73 94 Manual Cuff/Auscultation 09/20/16 07:50 99 Nasal Cannula 2.00 09/20/16 07:00 Nasal Cannula 2.00 09/20/16 05:40 64 147/65 09/20/16 00:00 97.9 89 18 198/92 93 189/77 09/19/16 23:40 Nasal Cannula 2.00 09/19/16 20:00 97.9 60 20 146/97 96 09/19/16 16:00 98 Nasal Cannula 2.00 09/19/16 13:33 181/83 09/19/16 11:54 98.0 100 18 98 (Radha Shanks) CBC/BMP: 09/19/16 0706 09/19/16 0706 Imaging Remarks Last Impressions Chest X-Ray 09/19/16 0600 Signed Impressions: Service Date/Time: August 06:37 - CONCLUSION: 1. Low lung volumes with right mid lung atelectasis. Taz Loomis MD Current Medications Administered Medications Medications (Trade) Dose Ordered Sig/Jasmina Route PRN Reason Start Time Stop Time Status Last Admin Dose Admin Sodium Chloride (NS Flush) 2 ml BID IV FLUSH 09/16/16 09:00 09/20/16 07:42 Sodium Chloride (NS Flush) 2 ml UNSCH PRN IV FLUSH FLUSH AFTER USING IV ACCESS 09/16/16 02:15 09/16/16 05:47 Methylprednisolone Sodium Succinate (SoluMEDROL INJ) 60 mg Q6H IVP 09/16/16 06:00 09/20/16 05:39 Morphine Sulfate 15 mg 15 mg Q6H PRN PO severe pain 09/16/16 02:15 09/20/16 03:21 Ceftriaxone Sodium/Sodium Chloride (Rocephin Inj/NS Inj) 100 ml @ 200 mls/hr Q24H IV 09/17/16 02:00 09/20/16 01:16 Apixaban (Eliquis) 2.5 mg DAILY PO 09/16/16 09:00 09/20/16 07:41 Atenolol (Tenormin) 50 mg DAILY PO 09/16/16 09:00 09/19/16 08:13 Benzonatate (Tessalon) 100 mg TID PRN PO COUGH 09/16/16 07:45 09/20/16 05:39 Levothyroxine Sodium (Synthroid) 150 mcg DAILY@06 PO 09/16/16 09:00 09/20/16 05:39 Mirtazapine (Remeron) 45 mg HS PO 09/16/16 21:00 09/19/16 21:16 Montelukast Sodium (Singulair) 10 mg HS PO 09/16/16 21:00 09/19/16 21:15 Pravastatin Sodium 10 mg 10 mg HS PO 09/16/16 21:00 09/19/16 21:16 Azithromycin/ Sodium Chloride (Zithromax Inj/ NS 250 ml Inj) 250 ml @ 250 mls/hr Q24H IV 09/16/16 10:00 09/20/16 07:42 Guaifenesin (Mucinex Er) 600 mg BID PO 09/16/16 21:00 09/20/16 07:41 Morphine Sulfate (Oramorph Sr) 15 mg Q12HR PO 09/17/16 13:00 09/20/16 07:41 Lisinopril (Prinivil) 10 mg Q12HR PO 09/18/16 21:00 09/19/16 21:16 Hydralazine HCl (Apresoline) 25 mg Q8HR PRN PO SYS BP GREATER THAN 170 MMHG 09/18/16 15:45 09/20/16 01:16 Budesonide/ Formoterol Fumarate (Symbicort 80-4.5 Mcg Inh) 2 puff Q12HR INH 09/18/16 21:00 09/20/16 07:42 Hydralazine HCl (Apresoline) 25 mg Q8HR PO 09/19/16 22:00 09/20/16 05:39 Guaifenesin/ Dextromethorphan (Robitussin Dm 200-20 Mg/10 ml Liq) 10 ml Q6H PO 09/19/16 20:00 09/20/16 07:41 (Radha Shanks) Physical Exam General General Appearance: Well Developed (for her age), Anxious (Radha ShanksP) Eyes Eye Exam: Pupils Reactive (Radha ShanksP) Ears & Nose Ears & Nose Exam: Nasal Mucosa [place] (Radha ShanksP) Throat Throat Exam: Oral Mucosa [place] & Moist (Radha ShanksP) Neck Neck Exam: Neck Supple (Radha ShanksP) Cardiology CV Exam: Regular (Radha ShanksP) Gastrointestinal/Abdomen GI Exam: Soft, Non-Tender, Bowel Sounds Present (Radha ShanksP) Musculoskeletal MS Exam: Joints Intact, Atrophy (Radha ShanksP) Integumentary Skin Exam: Warm, Dry, Intact (Radha Shanks) Extremeties Extremeties Remarks Minimal trace pedal edema, improved (Radha ShanksP) Neurologic Neuro Exam: Awake, Oriented, Speech Clear, Moving All Extremities (Radha ShanksP) Assessment/Plan Assessment/Plan Assessment vitals reviewed , afebrile COPD exacerbation, with acute bronchitis, Failure of outpatient therapy, appreciate pulmonary consult and input incentive spirometry and using every hr and prn antibiotics, steroids, oxygen if warranted, steroids afebrile Unable to obtain sputum culture, but cough continues to be course, lung sounds much improved with air moving throughout upper and lower feels duo nebs to every 4 hours Still has mild hoarseness to voice, and coverage patient to be up in chair, active in room, noted exertional dyspnea Will do walk test today History DVT and PE, medical management Eliquis Hypertension, stable Medical management Lisinopril added Left breast cancer, recently diagnosed. lumpectomy with Dr. Schroeder in September. Prior history of bladder cancer, neuroendocrine malignancy Patient to follow-up with radiation oncology as outpatient Continue with [place] for DVT prophylaxis Plan of care has been discussed with the patient, D/W Dr. Garcia, seen on her behalf D/W nurse Discussed with case management, discharge planning will probably be home with family, we'll do walk test today to see if patient needs O2 at home (Radha Shanks) Assessment/Plan patient seen and examined agree with above assessment and plan short of breath after lunch decrease steroids to q8H BP better controlled Pt eval noted continue current care plan of care discussed with patient and son at bedside discussed with Radha WESTON (Nora Gracia MD) Radha Shanks Sep 20, 2016 11:37 Nora Garcia MD Sep 20, 2016 13:46
--- NOTE | 2016-09-20 18:12 | HHI.PR ---
Subjective Remarks 86 YOWF with COPD, persistant cough, not able to expactorate No Fever No Headache feels better cough, not ablle to expactorate Objective Vital Signs Vital Signs Date Time Temp Pulse Resp B/P Pulse Ox O2 Delivery O2 Flow Rate FiO2 09/20/16 16:00 98.7 86 20 165/78 96 09/20/16 12:00 98.5 95 17 143/65 95 09/20/16 11:55 96 21 09/20/16 08:43 18 09/20/16 08:00 98.4 82 18 109/73 94 Manual Cuff/Auscultation 09/20/16 07:50 99 Nasal Cannula 2.00 09/20/16 07:00 Nasal Cannula 2.00 09/20/16 05:40 64 147/65 09/20/16 00:00 97.9 89 18 198/92 93 189/77 09/19/16 23:40 Nasal Cannula 2.00 09/19/16 20:00 97.9 60 20 146/97 96 I/O 09/19/16 09/19/16 09/19/16 09/20/16 09/20/16 09/20/16 07:00 15:00 23:00 07:00 15:00 23:00 Intake Total 360 ml Balance 360 ml Intake Oral 360 ml # Voids 1 Result Diagram: 09/19/16 0709/19/16 07 Objective Remarks GENERAL:MBMN WF, NAD SKIN: Warm and dry. HEAD: Normocephalic. EYES: No scleral icterus. No injection or drainage. NECK: Supple, trachea midline. No JVD or lymphadenopathy. CARDIOVASCULAR: Regular rate and rhythm without murmurs, gallops, or rubs. RESPIRATORY: Breath sounds equal bilaterally. No accessory muscle use. Harsh BS GASTROINTESTINAL: Abdomen soft, non-tender, nondistended. MUSCULOSKELETAL: No cyanosis, or edema. BACK: Nontender without obvious deformity. No CVA tenderness. A/P Assessment and Plan COPD Av Bronchitis Atelactesis HTN Ca breast PLAN: DW pt and daughter at BS Aerosol nebs Robitussin DM cough syp Cont Steroids BP mgmnt per Primary PO ABX Satish Calabrese MD Sep 20, 2016 18:12
[2016-09-20] MEDS: CEFUROXIME AXETIL 500 MG TAB PO SCH (20:36)
[2016-09-20] MEDS: MONTELUKAST SODIUM 10 MG TAB PO SCH (20:37)
[2016-09-20] MEDS: PRAVASTATIN SOD 10 MG TAB PO SCH (20:39)
[2016-09-20] MEDS: MIRTAZAPINE 15 MG TAB PO SCH (20:39)
[2016-09-21] VITALS (10 sets, daily range): BP systolic 150–189; BP diastolic 70–96; PULSE 55–93; RESP 17–21; TEMP 97.5–98.7; O2SAT 92–95
[2016-09-21] MEDS: hydrALAZINE HCL 25 MG TAB PO PRN ×2 (00:51→15:43)
[2016-09-21] MEDS: guaiFENesin/DEXTROMETHORPHAN 200 MG/20 MG/10 ML CUP PO SCH ×3 (03:13→13:05)
[2016-09-21] MEDS: methylPREDNISolone SOD SUCC 125 MG/2 ML VIAL IVP SCH ×2 (04:38→11:20)
[2016-09-21] MEDS: RESP: ALBUTEROL 2.5 MG/IPRATROPIUM 0.5 MG NEB (SCH) INH ×2 (04:41→07:43)
[2016-09-21] MEDS: LEVOTHYROXINE SODIUM 150 MCG TAB PO SCH (05:48)
[2016-09-21] MEDS: hydrALAZINE HCL 25 MG TAB PO SCH ×3 (05:49→21:00)
[2016-09-21] MEDS: guaiFENesin E.R. 600 MG TAB PO SCH ×2 (08:22→20:49)
[2016-09-21] MEDS: ATENOLOL 50 MG TAB PO SCH (08:22)
[2016-09-21] MEDS: SODIUM CHLORIDE 0.9% FLUSH 10 ML FLUSH IV FLUSH SCH ×2 (08:23→20:49)
[2016-09-21] MEDS: AZITHROMYCIN 250 MG TAB PO SCH (08:23)
[2016-09-21] MEDS: LISINOPRIL 10 MG TAB PO SCH (08:23)
[2016-09-21] MEDS: CEFUROXIME AXETIL 500 MG TAB PO SCH ×2 (08:23→20:48)
[2016-09-21] MEDS: APIXABAN 2.5 MG TABLET PO SCH (08:23)
[2016-09-21] MEDS: MORPHINE SULFATE 15 MG CONTROLLED RELEASE TAB PO SCH ×2 (08:23→20:48)
[2016-09-21] MEDS: BUDESONIDE-FORMOTEROL 80/4.5 MCG INHALER INH SCH ×2 (08:24→20:47)
[2016-09-21] MEDS: BENZONATATE 100 MG CAP PO PRN ×2 (08:29→20:48)
--- NOTE | 2016-09-21 11:29 | HHI.FF ---
Face to Face Verification Diagnosis: (1) Bronchitis (2) HTN (hypertension) (3) COPD with exacerbation (4) Failure of outpatient treatment Home Health Nursing Order: Signs/symptoms of disease process Nursing assessment with vital signs I have seen patient Bonnie Hill on 09/21/16. My clinical findings support the need for the requested home health care services because: Ltd mobility - disease progression Limited ability to care for self High risk of falls I certify that my clinical findings support that this patient is homebound because: Hx COPD- exertion dyspnea/weakness Unsteady gait/balance Rahda Shanks [facility] [place] Sep 21, 2016 11:29
--- NOTE | 2016-09-21 11:32 | HHI.PR ---
Subjective Subjective Remarks Up in bathroom with assistance getting her bath Exertional shortness of breath compensated Denies any pain, no shortness of breath at rest Hoarseness improved Family at bedside (Radha Shanks) Review of Systems Constitutional Constitutional: Fatigue (mildly improved), Weakness (needs frequent rest periods) Constitutional Remarks 12 point ROS done positives noted (Radha Shanks) Ears and Nose Ears and Nose: Congestion (improved) (Radha Shanks) Throat Throat: Hoarse (and proved) (Radha Shanks) Pulmonary Respiratory: Coughing, Shortness of Breath, Wheezing (Radha Shanks) Musculoskeletal MS: Weakness (Radha Shanks) Psychiatric Psychiatric: Normal Mood, Anxiety (improved) (Radha Shanks) Vitals/Results Intake & Output 09/20/16 09/20/16 09/21/16 15:00 23:00 07:00 Intake Total 360 ml 240 ml Output Total 175 ml 280 ml Balance 185 ml -40 ml Intake Oral 360 ml 240 ml Output Urine Total 175 ml 280 ml # Voids 4 # Bowel Movements 0 1 0 Vital Signs Vital Signs Date Time Temp Pulse Resp B/P Pulse Ox O2 Delivery O2 Flow Rate FiO2 09/21/16 08:32 95 Nasal Cannula 2.00 09/21/16 08:00 98.0 73 18 168/70 95 09/21/16 07:45 92 09/21/16 04:00 97.7 78 21 150/76 95 09/21/16 02:16 154/82 09/21/16 01:54 166/80 09/21/16 00:49 189/96 09/21/16 00:00 97.8 93 17 160/87 95 09/20/16 20:50 95 Nasal Cannula 2.00 09/20/16 20:20 98 Nasal Cannula 2.00 09/20/16 20:00 98.1 90 21 158/83 97 09/20/16 16:00 98.7 86 20 165/78 96 09/20/16 12:00 98.5 95 17 143/65 95 09/20/16 11:55 96 21 (Radha Shanks) CBC/BMP: 09/19/16 0706 09/19/16 0706 Imaging Remarks Last Impressions Chest X-Ray 09/19/16 0600 Signed Impressions: Service Date/Time: August 06:37 - CONCLUSION: 1. Low lung volumes with right mid lung atelectasis. Taz Loomis MD Current Medications Administered Medications Medications (Trade) Dose Ordered Sig/Jasmina Route PRN Reason Start Time Stop Time Status Last Admin Dose Admin Sodium Chloride (NS Flush) 2 ml BID IV FLUSH 09/16/16 09:00 09/21/16 08:23 Sodium Chloride (NS Flush) 2 ml UNSCH PRN IV FLUSH FLUSH AFTER USING IV ACCESS 09/16/16 02:15 09/16/16 05:47 Morphine Sulfate (Msir) 15 mg Q6H PRN PO severe pain 09/16/16 02:15 09/20/16 14:12 Apixaban (Eliquis) 2.5 mg DAILY PO 09/16/16 09:00 09/21/16 08:23 Atenolol (Tenormin) 50 mg DAILY PO 09/16/16 09:00 09/21/16 08:22 Benzonatate (Tessalon) 100 mg TID PRN PO COUGH 09/16/16 07:45 09/21/16 08:29 Levothyroxine Sodium (Synthroid) 150 mcg DAILY@06 PO 09/16/16 09:00 09/21/16 05:48 Mirtazapine (Remeron) 45 mg HS PO 09/16/16 21:00 09/20/16 20:39 Montelukast Sodium (Singulair) 10 mg HS PO 09/16/16 21:00 09/20/16 20:37 Pravastatin Sodium (Pravachol) 10 mg HS PO 09/16/16 21:00 09/20/16 20:39 Guaifenesin (Mucinex Er) 600 mg BID PO 09/16/16 21:00 09/21/16 08:22 Morphine Sulfate (Oramorph Sr) 15 mg Q12HR PO 09/17/16 13:00 09/21/16 08:23 Lisinopril (Prinivil) 10 mg Q12HR PO 09/18/16 21:00 09/21/16 08:23 Hydralazine HCl (Apresoline) 25 mg Q8HR PRN PO SYS BP GREATER THAN 170 MMHG 09/18/16 15:45 09/21/16 00:51 Budesonide/ Formoterol Fumarate (Symbicort 80-4.5 Mcg Inh) 2 puff Q12HR INH 09/18/16 21:00 09/21/16 08:24 Hydralazine HCl (Apresoline) 25 mg Q8HR PO 09/19/16 22:00 09/21/16 05:49 Guaifenesin/ Dextromethorphan (Robitussin Dm 200-20 Mg/10 ml Liq) 10 ml Q6H PO 09/19/16 20:00 09/21/16 08:23 Methylprednisolone Sodium Succinate (SoluMEDROL INJ) 60 mg Q8H IVP 09/20/16 20:00 09/21/16 11:20 Azithromycin (Zithromax) 500 mg DAILY PO 09/21/16 09:00 09/21/16 08:23 Cefuroxime Axetil (Ceftin) 500 mg Q12HR PO 09/20/16 21:00 09/21/16 08:23 (Radha Shanks) Physical Exam General General Appearance: Well Developed (for her age), Comfortable (at rest), Anxious (Radha Shanks) Eyes Eye Exam: Pupils Reactive (Radha Shanks) Ears & Nose Ears & Nose Exam: Nasal Mucosa Cle[place] (Radha Shanks) Throat Throat Exam: Oral Mucosa Cle[place] & Moist Throat Remarks Hoarseness improved (Radha Shanks) Neck Neck Exam: Neck Supple (Radha Shanks) Cardiology CV Exam: Regular (Radha Shanks) Gastrointestinal/Abdomen GI Exam: Soft, Non-Tender, Bowel Sounds Present (Radha Shanks) Musculoskeletal MS Exam: Joints Intact, Atrophy (Radha hSanks) Integumentary Skin Exam: Warm, Dry, Intact (Radha Shanks) Extremeties Extremeties Remarks Minimal trace pedal edema, resolved with legs elevated (Radha Shanks) Neurologic Neuro Exam: Awake, Oriented, Speech Clear, Moving All Extremities (Radha Shanks) Assessment/Plan Assessment/Plan vitals reviewed , afebrile COPD exacerbation, with acute bronchitis, appreciate pulmonary consult and input , patient and family wall outpatient follow-up for their mom's quality of care incentive spirometry, O2 as needed, dual nebs, steroids, cough meds, by mouth antibiotics Walk test within normal ranges, shots compensated with her O2 sat Hypertension, stable Medical management Lisinopril added Left breast cancer, recently diagnosed. lumpectomy with Dr. Schroeder in September. Prior history of bladder cancer, neuroendocrine malignancy Patient to follow-up with radiation oncology as outpatient Continue with Eliquis for DVT prophylaxis Plan of care has been discussed with the patient, D/W Dr. Garcia, seen on her behalf D/W nurse Discussed with case management, discharge planning probable today with family, home health if patient request (Radha Shanks) Assessment/Plan patient seen and examined agree with above assessment and plan slowly improving increase lisinopril to 20 mg po bid anticipate discharge to home with [facility] in am no family at bedside plan of care discussed with patient and nursing staff discussed with Radha WESTON (Nora Garcia MD) Radha Shanks Sep 21, 2016 11:32 Nora Garcia MD Sep 21, 2016 16:39 Radha Shanks Sep 20, 2016 11:37 Nora Garcia MD Sep 20, 2016 13:46 Radha Shanks Sep 21, 2016 11:32
[2016-09-21] MEDS: predniSONE 10 MG TAB PO SCH (17:22)
[2016-09-21] MEDS ORDERED: guaiFENesin/DEXTROMETHORPHAN 200 MG/20 MG/10 ML CUP PO PRN (20:00)
[2016-09-21] MEDS: RESP: ALBUTEROL 2.5 MG/IPRATROPIUM 0.5 MG NEB (PRN) NEB (20:01)
[2016-09-21] MEDS: MIRTAZAPINE 15 MG TAB PO SCH (20:48)
[2016-09-21] MEDS: PRAVASTATIN SOD 10 MG TAB PO SCH (20:49)
[2016-09-21] MEDS: MONTELUKAST SODIUM 10 MG TAB PO SCH (20:49)
[2016-09-21] MEDS: LISINOPRIL 20 MG TAB PO SCH (20:49)
[2016-09-22] VITALS (8 sets, daily range): BP systolic 137–197; BP diastolic 72–89; PULSE 55–77; RESP 16–18; TEMP 97.6–98.2; O2SAT 93–95
[2016-09-22 00:44] LABS: AUTOMATED NEUTROPHIL # 11.1 TH/MM3 (1.8-7.7); BASOPHIL % 0.1 % (0.0-2.0); HEMATOCRIT 42.5 % (35.0-46.0); LYMPH % 4.1 % (9.0-44.0); LYMPHOCYTE # 0.5 TH/MM3 (1.0-4.8); MEAN CELL VOLUME 94.8 FL (80.0-100.0); MEAN CORPUSCULAR HEMOGLOBIN 30.7 PG (27.0-34.0); MEAN CORPUSCULAR HGB CONC 32.4 % (32.0-36.0); MONO % 7.9 % (0.0-8.0); NEUT % 87.9 % (16.0-70.0); PLATELET COUNT 88 TH/MM3 (150-450); RED BLOOD COUNT 4.48 MIL/MM3 (4.00-5.30); RED CELL DISTRIBUTION WIDTH 16.1 % (11.6-17.2); WHITE BLOOD COUNT 12.7 TH/MM3 (4.0-11.0)
[2016-09-22 00:51] LABS: HEMO FLAGS DIFF FINAL
[2016-09-22 01:10] LABS: BICARBONATE 27.2 MEQ/L (21.0-32.0); POTASSIUM 4.4 MEQ/L (3.5-5.1)
[2016-09-22] MEDS: LEVOTHYROXINE SODIUM 150 MCG TAB PO SCH (06:22)
[2016-09-22] MEDS: hydrALAZINE HCL 25 MG TAB PO SCH ×2 (06:23→13:05)
[2016-09-22] MEDS: predniSONE 10 MG TAB PO SCH ×2 (07:54→13:05)
[2016-09-22] MEDS: LISINOPRIL 20 MG TAB PO SCH (07:54)
[2016-09-22] MEDS: ATENOLOL 50 MG TAB PO SCH (07:54)
[2016-09-22] MEDS: MORPHINE SULFATE 15 MG CONTROLLED RELEASE TAB PO SCH (07:55)
[2016-09-22] MEDS: AZITHROMYCIN 250 MG TAB PO SCH (07:55)
[2016-09-22] MEDS: CEFUROXIME AXETIL 500 MG TAB PO SCH (07:55)
[2016-09-22] MEDS: APIXABAN 2.5 MG TABLET PO SCH (07:55)
[2016-09-22] MEDS: guaiFENesin E.R. 600 MG TAB PO SCH (07:55)
[2016-09-22] MEDS: BUDESONIDE-FORMOTEROL 80/4.5 MCG INHALER INH SCH (07:59)
[2016-09-22] MEDS: SODIUM CHLORIDE 0.9% FLUSH 10 ML FLUSH IV FLUSH SCH (08:00)
[2016-09-22] MEDS: BENZONATATE 100 MG CAP PO PRN (08:00)
--- NOTE | 2016-09-22 09:44 | HHI.PR ---
Subjective Subjective Remarks dozing, resting in bed Exertional shortness of breath compensated Denies any pain, no shortness of breath at rest cough, coarse, but breathing better monitoring BP. check manual. (Radha Shanks) Review of Systems Constitutional Constitutional: Fatigue (mildly improved), Weakness (needs frequent rest periods) Constitutional Remarks 12 point ROS done positives noted (Radha Shanks) Ears and Nose Ears and Nose: Congestion (improved) (Radha Shanks) Throat Throat: Hoarse (and proved) (Radha Shanks) Pulmonary Respiratory: Coughing, Shortness of Breath, Wheezing (Radha Shanks) Musculoskeletal MS: Weakness (Radha Shanks) Psychiatric Psychiatric: Normal Mood, Anxiety (improved) (Radha Shanks) Vitals/Results Intake & Output 09/21/16 09/21/16 09/22/16 15:00 23:00 07:00 Intake Total 480 ml Output Total 500 ml Balance 480 ml -500 ml Intake Oral 480 ml Output Urine Total 500 ml # Voids 3 3 # Bowel Movements 1 Vital Signs Vital Signs Date Time Temp Pulse Resp B/P Pulse Ox O2 Delivery O2 Flow Rate FiO2 09/22/16 08:02 97 Room Air 09/22/16 07:58 97.8 55 16 176/89 93 09/22/16 06:59 55 182/72 09/22/16 06:00 98.2 70 17 190/74 94 09/22/16 00:13 Room Air 09/22/16 00:00 97.6 77 18 137/81 93 09/21/16 20:00 97.8 55 18 180/83 95 09/21/16 15:47 98.7 60 21 173/75 92 09/21/16 11:29 97.5 62 18 169/76 94 (Radha Shanks) CBC/BMP: 09/22/16 0005 09/22/16 0005 Lab Results Laboratory Tests Test 09/22/16 00:05 White Blood Count 12.7 TH/MM3 Red Blood Count 4.48 MIL/MM3 Hemoglobin 13.8 GM/DL Hematocrit 42.5 % Mean Corpuscular Volume 94.8 FL Mean Corpuscular Hemoglobin 30.7 PG Mean Corpuscular Hemoglobin 32.4 % Concent Red Cell Distribution Width 16.1 % Platelet Count 88 TH/MM3 Mean Platelet Volume 8.0 FL Neutrophils (%) (Auto) 87.9 % Lymphocytes (%) (Auto) 4.1 % Monocytes (%) (Auto) 7.9 % Eosinophils (%) (Auto) 0.0 % Basophils (%) (Auto) 0.1 % Neutrophils # (Auto) 11.1 TH/MM3 Lymphocytes # (Auto) 0.5 TH/MM3 Monocytes # (Auto) 1.0 TH/MM3 Eosinophils # (Auto) 0.0 TH/MM3 Basophils # (Auto) 0.0 TH/MM3 CBC Comment DIFF FINAL Differential Comment Sodium Level 138 MEQ/L Potassium Level 4.4 MEQ/L Chloride Level 105 MEQ/L Carbon Dioxide Level 27.2 MEQ/L Anion Gap 6 MEQ/L Blood Urea Nitrogen 44 MG/DL Creatinine 1.03 MG/DL Estimat Glomerular Filtration 51 ML/MIN Rate Random Glucose 351 MG/DL Calcium Level 7.9 MG/DL Current Medications Administered Medications Medications (Trade) Dose Ordered Sig/Jasmina Route PRN Reason Start Time Stop Time Status Last Admin Dose Admin Sodium Chloride (NS Flush) 2 ml BID IV FLUSH 09/16/16 09:00 09/22/16 08:00 Sodium Chloride (NS Flush) 2 ml UNSCH PRN IV FLUSH FLUSH AFTER USING IV ACCESS 09/16/16 02:15 09/16/16 05:47 Morphine Sulfate (Msir) 15 mg Q6H PRN PO severe pain 09/16/16 02:15 09/20/16 14:12 Apixaban (Eliquis) 2.5 mg DAILY PO 09/16/16 09:00 09/22/16 07:55 Atenolol (Tenormin) 50 mg DAILY PO 09/16/16 09:00 09/21/16 08:22 Benzonatate (Tessalon) 100 mg TID PRN PO COUGH 09/16/16 07:45 09/22/16 08:00 Levothyroxine Sodium (Synthroid) 150 mcg DAILY@06 PO 09/16/16 09:00 09/22/16 06:22 Mirtazapine (Remeron) 45 mg HS PO 09/16/16 21:00 09/21/16 20:48 Montelukast Sodium (Singulair) 10 mg HS PO 09/16/16 21:00 09/21/16 20:49 Pravastatin Sodium (Pravachol) 10 mg HS PO 09/16/16 21:00 09/21/16 20:49 Guaifenesin (Mucinex Er) 600 mg BID PO 09/16/16 21:00 09/22/16 07:55 Morphine Sulfate (Oramorph Sr) 15 mg Q12HR PO 09/17/16 13:00 09/22/16 07:55 Hydralazine HCl (Apresoline) 25 mg Q8HR PRN PO SYS BP GREATER THAN 170 MMHG 09/18/16 15:45 09/21/16 15:43 Budesonide/ Formoterol Fumarate (Symbicort 80-4.5 Mcg Inh) 2 puff Q12HR INH 09/18/16 21:00 09/22/16 07:59 Hydralazine HCl (Apresoline) 25 mg Q8HR PO 09/19/16 22:00 09/22/16 06:23 Azithromycin (Zithromax) 500 mg DAILY PO 09/21/16 09:00 09/22/16 07:55 Cefuroxime Axetil (Ceftin) 500 mg Q12HR PO 09/20/16 21:00 09/22/16 07:55 Prednisone (Deltasone) 10 mg TID PO 09/21/16 18:00 09/22/16 07:54 Guaifenesin/ Dextromethorphan (Robitussin Dm 200-20 Mg/10 ml Liq) 10 ml Q6H PRN PO cough 09/21/16 20:00 09/21/16 18:23 Lisinopril (Prinivil) 20 mg Q12HR PO 09/21/16 21:00 09/22/16 07:54 (Radha Shanks) Physical Exam General General Appearance: Well Developed (for her age), Comfortable (at rest), Anxious (Radha Shanks) Eyes Eye Exam: Pupils Reactive (Radha Shanks) Ears & Nose Ears & Nose Exam: Nasal Mucosa [place] (Radha Shanks) Throat Throat Exam: Oral Mucosa [place] & Moist Throat Remarks Hoarseness improved (Radha Shanks. LEARNING DEVELOPER) Neck Neck Exam: Neck Supple (Radha ShanksP) Cardiology CV Exam: Regular (Radha ShanksP) Gastrointestinal/Abdomen GI Exam: Soft, Non-Tender, Bowel Sounds Present (Radha Shanks. LEARNING DEVELOPER) Musculoskeletal MS Exam: Joints Intact, Atrophy (Radha Shanks LEARNING DEVELOPER) Integumentary Skin Exam: Warm, Dry, Intact (Radha Shanks. LEARNING DEVELOPER) Extremeties Extremeties Remarks Minimal trace pedal edema, resolved with legs elevated (Radha Shanks LEARNING DEVELOPER) Neurologic Neuro Exam: Awake, Oriented, Speech Clear, Moving All Extremities (Radha ShanksP) Assessment/Plan Assessment/Plan vitals reviewed , afebrile, BP trends noted, check manual and document this am COPD exacerbation, with acute bronchitis, appreciate pulmonary consult and input , incentive spirometry, O2 as needed, dual nebs, steroids, cough meds, by mouth antibiotics Walk test within normal ranges, shots compensated with her O2 sat Hypertension, Medical management Lisinopril added, will check manual BP while patient is resting Left breast cancer, recently diagnosed. lumpectomy with Dr. Schroeder in September. Prior history of bladder cancer, neuroendocrine malignancy Patient to follow-up with radiation oncology as outpatient Continue with Eliquis for DVT prophylaxis Plan of care has been discussed with the patient, D/W Dr. Garcia, seen on her behalf D/W nurse Discussed with case management, discharge planning pending (Radha Shanks) Assessment/Plan patient seen and examined agree with above assessment and plan ok to d/c home on poo steroid taper and antibiotics needs HHC at discharge plan of care discussed with patient AND Radha monitor BP at home follow up with PCP (Nora Garcia MD) Radha Shanks Sep 22, 2016 09:43 Nora Garcia MD Sep 22, 2016 15:52
[2016-09-22] MEDS: RESP: ALBUTEROL 2.5 MG/IPRATROPIUM 0.5 MG NEB (PRN) NEB (14:16)
--- NOTE | 2016-09-22 15:23 | HHI.PR ---
Subjective Remarks 86 YOWF with COPD, persistant cough, not able to expactorate No Fever No Headache feels better cough, not ablle to expactorate Has nausea after Robitussin Objective Vital Signs Vital Signs Date Time Temp Pulse Resp B/P Pulse Ox O2 Delivery O2 Flow Rate FiO2 09/22/16 15:03 160/78 09/22/16 14:17 95 Nasal Cannula 2.00 09/22/16 11:13 166/82 09/22/16 08:02 97 Room Air 09/22/16 07:58 97.8 55 16 176/89 93 09/22/16 06:59 55 182/72 09/22/16 06:00 98.2 70 17 190/74 94 09/22/16 00:13 Room Air 09/22/16 00:00 97.6 77 18 137/81 93 09/21/16 20:00 97.8 55 18 180/83 95 09/21/16 15:47 98.7 60 21 173/75 92 I/O 09/21/16 09/21/16 09/21/16 09/22/16 09/22/16 09/22/16 07:00 15:00 23:00 07:00 15:00 23:00 Intake Total 240 ml 480 ml Output Total 280 ml 500 ml Balance -40 ml 480 ml -500 ml Intake Oral 240 ml 480 ml Output Urine Total 280 ml 500 ml # Voids 3 3 # Bowel Movements 0 1 Result Diagram: 09/22/16 0005 09/22/16 0005 Objective Remarks GENERAL:MBMN WF, NAD SKIN: Warm and dry. HEAD: Normocephalic. EYES: No scleral icterus. No injection or drainage. NECK: Supple, trachea midline. No JVD or lymphadenopathy. CARDIOVASCULAR: Regular rate and rhythm without murmurs, gallops, or rubs. RESPIRATORY: Breath sounds equal bilaterally. No accessory muscle use. Harsh BS GASTROINTESTINAL: Abdomen soft, non-tender, nondistended. MUSCULOSKELETAL: No cyanosis, or edema. BACK: Nontender without obvious deformity. No CVA tenderness. A/P Assessment and Plan COPD Av Bronchitis Atelactesis HTN Ca breast PLAN: DW pt and daughter at BS Aerosol nebs DC Robitussin DM Cont Steroids BP mgmnt per Primary PO ABX DC plans for home. Satish Calabrese MD Sep 22, 2016 15:23
[2016-09-22] MEDS ORDERED: PRED10 PO (15:48)
[2016-09-22] MEDS ORDERED: LISI-515 PO (15:48)
[2016-09-22] MEDS ORDERED: guaiFENesin ER PO (15:48)
[2016-09-22] MEDS ORDERED: HYDR-3799 PO (15:48)
[2016-09-22] MEDS ORDERED: SYMB80AE INH (15:48)
[2016-09-22] MEDS ORDERED: CEFU1TAB20 PO (15:48)
--- NOTE | 2016-09-22 15:50 | HHI.FF ---
Face to Face Verification Diagnosis: (1) COPD exacerbation (2) HTN (hypertension) Physical Therapy Order: Evaluate and Treat Occupational Therapy Order: Evaluate and Treat I have seen patient Bonnie Hill on 09/22/16. My clinical findings support the need for the requested home health care services because: Patient has SOB I certify that my clinical findings support that this patient is homebound because: Hx COPD- exertion dyspnea/weakness Nora Garcia MD Sep 22, 2016 15:49
== END 2016-09-22 16:20 | disposition home health service (06) | DRG 192 ==
LOC: NEPE 21:36 → NEDA 09-16 01:08 → NEPFCDU 09-16 05:18 → OBSVTOIN 09-17 10:27 → N05B 09-17 18:06
PROVIDERS: ADMIT Internal Medicine; ATTEND Internal Medicine
DX: J44.1 Chronic obstructive pulmonary disease with (acute) exacerbation (principal); D69.6 Thrombocytopenia, unspecified; C50.912 Malignant neoplasm of unspecified site of left female breast; I10 Essential (primary) hypertension; E78.5 Hyperlipidemia, unspecified; I25.10 Atherosclerotic heart disease of native coronary artery without angina pectoris; E03.9 Hypothyroidism, unspecified; M19.90 Unspecified osteoarthritis, unspecified site; F41.9 Anxiety disorder, unspecified; Z79.01 Long term (current) use of anticoagulants; Z85.038 Personal history of other malignant neoplasm of large intestine; Z85.51 Personal history of malignant neoplasm of bladder; Z85.79 Personal history of other malignant neoplasms of lymphoid, hematopoietic and related tissues; Z86.711 Personal history of pulmonary embolism; Z86.718 Personal history of other venous thrombosis and embolism; Z86.73 Personal history of transient ischemic attack (TIA), and cerebral infarction without residual deficits; Z88.1 Allergy status to other antibiotic agents; Z88.5 Allergy status to narcotic agent; Z90.49 Acquired absence of other specified parts of digestive tract; Z90.6 Acquired absence of other parts of urinary tract; Z93.6 Other artificial openings of urinary tract status; Z95.1 Presence of aortocoronary bypass graft; Z95.3 Presence of xenogenic heart valve
CPT/HCPCS: 71010; 76937; 80048; 80053; 82550; 82552; 83605; 83735; 83880; 84484; 85025; 85610; 85730; 86140; 87040; 93005; 94150; 94620; 94640; 94664; 94667; 94668; 96374; G0378; J0456; J0696; J2270; J2405; J2930; J7050; J7512

== ENCOUNTER 2016-09-23 03:10 | Inpatient (IN) | payer MEDICARE ==
[~2016-09-23] VITALS: Ht 157.5 cm; Wt 82.4 kg
[2016-09-23] VITALS (14 sets, daily range): BP systolic 116–202; BP diastolic 55–136; PULSE 67–101; RESP 16–20; TEMP 96.2–98.6; O2SAT 92–98
[~2016-09-23 03:10] MED LIST changes: +BENZ1CAP8 PO; +CEFU1TAB20 PO; +HYDR-3799 PO; +LISI-515 PO; +MORP1TAB24 PO; -MSIR15 PO; +PARO30TA2 PO; +PRED10 PO; +SYMB80AE INH; +guaiFENesin ER PO
--- NOTE | 2016-09-23 03:20 | PD ---
HPI Chief Complaint: Complaint Time Seen by Provider: 03:15 Travel History International Travel<30 days: No Contact w/Intl Traveler<30days: No Traveled to known affect area: No History of Present Illness HPI The patient is an 86 year old female who presents to the [facility] emergency department with a history of awakening with episodes of hematuria. The patient reports that she's had 3 episodes this evening. The patient reports that she has a history of bladder cancer and has had a bladder resection with an ileal conduit placed. The patient reports that she's had bloody drainage into the bag. She reports that she is chronically anticoagulated on L [place]. The patient reports having bilateral lower quadrant abdominal pain and suprapubic pain, however she reports that she's had this over the last week which she was relating to muscle strain from a persistent cough. Incidentally the patient was just discharged from the hospital yesterday for admission related to a COPD exacerbation and bronchitis. The patient also has a medical history significant for neuroendocrine malignancy, history of recently diagnosed left breast cancer, history of bladder cancer. On review of systems, the patient denies having any known fevers, however she has had a persistent chest congestion and nonproductive cough. The patient denies any neck pain, vomiting, diarrhea, or neurologic symptoms. The patient reports that she has chest pain with coughing and has shortness of breath with exertion. [facility] Past Medical History Narrative Medical The patient's past medical history is significant for COPD, anxiety disorder, arthritis, asthma, coronary artery disease, history of a TIA, history of amaurosis fugax, history of hyperlipidemia, hypertension, hypothyroid disorder, history of bladder cancer status post cystectomy, history of recurrent neuroendocrine carcinoma, history of recently diagnosed left breast cancer, history of recurrent DVT and PE. Asthma: Yes Blood Disorders: No Anxiety: Yes Depression: No Heart Rhythm Problems: No Cancer: Yes (BLADDER CANCER, BOWEL CANCER, AORTIC LYMPH NODES W REMOVAL ) Cardiovascular Problems: Yes (HYPERLIPIDEMIA) High Cholesterol: Yes Chemotherapy: No Chest Pain: No Congestive Heart Failure: Yes COPD: Yes Coronary Artery Disease: Yes Diabetes: No Endocrine: No Gastrointestinal Disorders: Yes (ESOPHAGEAL STRICTURE) Genitourinary: No Hepatitis: No Hiatal Hernia: No Hypertension: Yes Immune Disorder: No Musculoskeletal: Yes (BACK INJURY) Neurologic: No Psychiatric: Yes (ANXIETY) Reproductive: No Respiratory: Yes (COPD) Radiation Therapy: No Thyroid Disease: Yes Menopausal: Yes Past Surgical History Narrative Surgical The patient's past surgical history is significant for an appendectomy, aortic valve replacement and single-vessel coronary artery bypass graft in 2010, cholecystectomy, cystectomy with ileal conduit, EGD with dilatation, tonsillectomy, lymph node resection, bowel resection. Abdominal Surgery: Yes (APPENDECTOMY, CHOLY) AICD: No Appendectomy: Yes Body Medical Devices: BOVINE VALVE Cardiac Surgery: Yes (BOVINE VALVE) Cholecystectomy: Yes Ear Surgery: No Endocrine Surgery: No Eye Surgery: No Genitourinary Surgery: Yes (BLADDER REMOVAL, UROSTOMY) Gynecologic Surgery: No Joint Replacement: No Oral Surgery: Yes (TONSILLECTOMY) Pacemaker: No Thoracic Surgery: No Tonsillectomy: Yes Other Surgery: Yes (BOWEL RESECTION, LYMPH NODE REMOVAL) Social History Alcohol Use: No Tobacco Use: No Substance Use: No Allergies-Medications (Allergen,Severity, Reaction): Coded Allergies: Ambien (Verified Allergy, Severe, Confusion, 09/15/16) Codeine (Verified Allergy, Severe, nausea , 09/15/16) Dramamine (Verified Allergy, Severe, Confusion, 09/15/16) HMG-CoA Reductase Inhibitors (Verified Allergy, Severe, 09/15/16) Keflex (Verified Allergy, Severe, rash, 09/15/16) Reported Meds & Prescriptions Reported Meds & Active Scripts Active Prednisone 10 Mg Tab 10 Mg PO TID 8 Days Take 1 tab po tid for 2 days, then 1 tab po bid for 3 days, then 1 tab po daily for 3 days, then discontinue [guaiFENesin ER] 600 MG Tabcr 600 Mg PO BID 10 Days Lisinopril 20 Mg Tab 20 Mg PO Q12HR 30 Days Hydralazine HCl 25 Mg Tablet 25 Mg PO Q8HR 30 Days Cefuroxime (Cefuroxime Axetil) 500 Mg Tab 500 Mg PO Q12HR 7 Days Symbicort Inh (Budesonide/Formoterol Fumarate) 80-4.5 Mcg/Act Aero 2 Puff INH Q12HR 30 Days Reported Paroxetine (Paroxetine HCl) 30 Mg Tab 30 Mg PO DAILY Benzonatate 100 Mg Cap 100 Mg PO TID PRN Morphine ER (Morphine Sulfate) 15 Mg Tab 15 Mg PO Q6HR Vitamin D3 (Cholecalciferol) 1,000 Unit Tab 2,000 Units PO DAILY Pravastatin 10 Mg Tab 10 Mg PO HS Eliquis (Apixaban) 2.5 Mg Tab 2.5 Mg PO DAILY Singulair (Montelukast Sodium) 10 Mg Tab 10 Mg PO HS Levothyroxine (Levothyroxine Sodium) 150 Mcg Tab 150 Mcg PO DAILY Mirtazapine 45 Mg Tab 45 Mg PO HS Atenolol 50 Mg Tab 50 Mg PO DAILY Review of Systems Except as stated in HPI: all other systems reviewed are Neg General / Constitutional: No: Fever Eyes: No: Visual changes HENT: No: Headaches Cardiovascular: No: Chest Pain or Discomfort Respiratory: No: Shortness of Breath Gastrointestinal: Positive: Abdominal Pain, No: Nausea, Vomiting, Diarrhea, Changes in Bowel Habits, Indigestion, Loss of Appetite Genitourinary: Positive: Hematuria, No: Urgency, Frequency, Dysuria Musculoskeletal: No: Pain Skin: No Rash Neurologic: No: Weakness Psychiatric: No: Depression Endocrine: No: Polydipsia Hematologic/Lymphatic: No: Easy Bruising Physical Exam Narrative General: The patient is a well-developed well-nourished female in no acute distress. Head and Neck exam: Head is normocephalic atraumatic. Eyes: EOMI, pupils are equal round and reactive to light. Nose: Midline septum with pink mucous membranes Mouth: Dentition unremarkable. Moist mucus membranes. Posterior oropharynx is not erythematous. No tonsillar hypertrophy. Uvula midline. Airway patent. Neck: No palpable lymphadenopathy. No nuchal rigidity. No thyromegaly. Cardiovascular: Regular rate and rhythm without murmurs, gallops, or rubs. Lungs: The patient has scattered rhonchi that clear with coughing. The patient has no audible wheezes currently. No accessory muscle use. No paroxysmal abdominal breathing. Abdomen: Soft, with reported discomfort on palpation along bilateral lower quadrants of the abdomen and suprapubic area. No other tenderness on palpation of the other quadrants of the abdomen. No guarding, rebound, or rigidity. Negative [place] sign. No tenderness on palpation of McBurney's point. The patient has an ileal conduit in place in the right lower quadrant with bright red blood and urine present in the bag. Extremities: No clubbing, cyanosis, or edema. 2+ pulses in all 4 extremities. No calf tenderness on palpation. Back: No costovertebral angle tenderness to palpation. Neurologic Exam: Grossly nonfocal. Skin Exam: No rash noted. Intact skin that is warm and dry. Data Data Last Documented VS Vital Signs Date Time Temp Pulse Resp B/P Pulse Ox O2 Delivery O2 Flow Rate FiO2 09/23/16 06:00 80 16 202/136 97 Nasal Cannula 2 09/23/16 03:11 98.1 Orders Electrocardiogram (09/23/16 03:15) Complete Blood Count With Diff (09/23/16 03:15) Comprehensive Metabolic Panel (09/23/16 03:15) Prothrombin Time / Inr (Pt) (09/23/16 03:15) Act Partial Throm Time (Ptt) (09/23/16 03:15) Lipase (09/23/16 03:15) Urinalysis - C+S If Indicated (09/23/16 03:15) Magnesium (Mg) (09/23/16 03:15) Chest, Single Ap (09/23/16 03:15) Iv Access Insert/Monitor (09/23/16 03:15) Ecg Monitoring (09/23/16 03:15) Oximetry (09/23/16 03:15) Urine Culture (09/23/16 03:30) Ct Abd/Pel W Iv Contrast(Rout) (09/23/16 05:15) Iohexol 350 Inj (Omnipaque 350 Inj) (09/23/16 05:42) Hydralazine Inj (Apresoline Inj) (09/23/16 06:00) Sodium Chlor 0.9% 1000 Ml Inj (Ns 1000 M (09/23/16 06:00) Admit Order (Ed Use Only) (09/23/16 06:00) Labs Laboratory Tests Test 09/23/16 03:30 White Blood Count 13.4 TH/MM3 Red Blood Count 4.44 MIL/MM3 Hemoglobin 14.0 GM/DL Hematocrit 41.2 % Mean Corpuscular Volume 92.8 FL Mean Corpuscular Hemoglobin 31.5 PG Mean Corpuscular Hemoglobin 34.0 % Concent Red Cell Distribution Width 15.9 % Platelet Count 70 TH/MM3 Mean Platelet Volume 9.4 FL Neutrophils (%) (Auto) 82.8 % Lymphocytes (%) (Auto) 8.3 % Monocytes (%) (Auto) 8.4 % Eosinophils (%) (Auto) 0.2 % Basophils (%) (Auto) 0.3 % Neutrophils # (Auto) 11.1 TH/MM3 Lymphocytes # (Auto) 1.1 TH/MM3 Monocytes # (Auto) 1.1 TH/MM3 Eosinophils # (Auto) 0.0 TH/MM3 Basophils # (Auto) 0.0 TH/MM3 CBC Comment AUTO DIFF Differential Total Cells 100 Counted Neutrophils % (Manual) 68 % Band Neutrophils % 10 % Lymphocytes % 10 % Monocytes % 10 % Eosinophils % 1 % Neutrophils # (Manual) 10.6 TH/MM3 Metamyelocytes 1 % Differential Comment FINAL DIFF MANUAL Platelet Estimate LOW Platelet Morphology Comment NORMAL Ovalocytes 1+ Acanthocytes OCC Prothrombin Time 15.0 SEC Prothromb Time International 1.3 RATIO Ratio Activated Partial 27.5 SEC Thromboplast Time Urine Color RED Urine Turbidity HAZY Urine pH 7.5 Urine Specific [place] 1.021 Urine Protein 300 mg/dL Urine Glucose (UA) 70 mg/dL Urine Ketones NEG mg/dL Urine Occult Blood LARGE Urine Nitrite NEG Urine Bilirubin NEG Urine Urobilinogen LESS THAN 2.0 MG/DL Urine Leukocyte Esterase SMALL Urine RBC /hpf Urine Bacteria MOD /hpf Microscopic Urinalysis Comment CULTURE INDICATED Sodium Level 137 MEQ/L Potassium Level 5.5 MEQ/L Chloride Level 104 MEQ/L Carbon Dioxide Level 26.7 MEQ/L Anion Gap 6 MEQ/L Blood Urea Nitrogen 35 MG/DL Creatinine 0.83 MG/DL Estimat Glomerular Filtration 65 ML/MIN Rate Random Glucose 192 MG/DL Calcium Level 7.9 MG/DL Magnesium Level 2.2 MG/DL Total Bilirubin 1.2 MG/DL Aspartate Amino Transf 96 U/L (AST/SGOT) Alanine Aminotransferase 76 U/L (ALT/SGPT) Alkaline Phosphatase 259 U/L Total Protein 6.5 GM/DL Albumin 2.5 GM/DL Lipase 123 U/L [facility] Medical Decision Making Medical Screen Exam Complete: Yes Emergency Medical Condition: Yes Medical Record Reviewed: Yes Differential Diagnosis Recurrent cancer, versus bleeding related to anticoagulation, versus reading related to progressive thrombocytopenia, versus combination thereof Narrative Course During the course of the patients emergency department visit, the patients history, examination, and differential diagnosis were reviewed with the patient. The patient had IV access obtained and blood work sent for analysis. The patient was placed on a cardiac monitor technician with oximetry and blood pressure monitoring. CT scan of the abdomen and pelvis was ordered. The patient's family report that the patient was first diagnosed with bladder cancer and had a cystectomy in 1988. They have not established with a local urologist since she moved to the area. She has been taking her Eliquis regularly. The patient was initially provided normal saline at 70 mL per hour. The patient 's blood pressure began to increase. The patient's blood pressure went up to a systolic in the 200s. The patient was given hydralazine 10 mg IV. The patient additionally reported that she is due for her dose of morphine for chronic pain. The patient was given morphine 2 mg IV, Zofran 4 mg IV. The patients laboratory studies were reviewed and remarkable for white count of 13.4, hemoglobin 14, platelet 70 she is decreased compared to previously at 88, neutrophils 68, bands 10, lymphocytes 10, monocytes 10, CMP is remarkable for a potassium of 5.5, BUN 35, glucose 192, calcium 7.9, magnesium 2.2, total bilirubin 1.2, AST 96, ALTs 76, alkaline phosphatase 259, lipase 123, PT 15, INR 1.3, PTT 27.5, urinalysis shows 300 protein, glucose 70, large occult blood , no leukocyte esterase, moderate bacteria, culture indicated. The patient was given ciprofloxacin 400 mg IV 1. Radiology studies were reviewed and remarkable for a chest x-ray that shows no acute disease. CT scan of the abdomen and pelvis shows abnormal bowel gas pattern with apparent inflammatory change and enhancement in the right upper quadrant along the proximal small bowel in the mid ileum the findings are nonspecific. Postsurgical changes status post colonic resection. There is an ostomy in the right lower quadrant, anasarca is noted. Common bile duct appears prominent and measures up to 1 cm. The patients results were discussed with the patient, including the plan of care. I explained that further testing and/ or monitoring is indicated based on the patients history, examination, and/ or laboratory findings. Therefore, I recommended admission for additional evaluation. The patient expressed understanding and was agreeable with this plan. The patient was admitted to the hospital in stable condition and sent to a bed under the care of the [facility] hospitalist group. Physician Communication Physician Communication The patient's case was discussed with Ho Levi. He did agree to admit the patient to the [facility] group. Diagnosis Primary Impression: Hematuria Qualified Code: R31.0 - Gross hematuria Additional Impressions: Thrombocytopenia Anticoagulated by anticoagulation treatment Admitting Information Admitting Physician Requests: Admit Victorina Brantley MD Sep 23, 2016 03:20
[2016-09-23 03:56] LABS: AUTOMATED NEUTROPHIL # 11.1 TH/MM3 (1.8-7.7); BASOPHIL % 0.3 % (0.0-2.0); EOSINOPHIL % 0.2 % (0.0-4.0); HEMATOCRIT 41.2 % (35.0-46.0); LYMPH % 8.3 % (9.0-44.0); LYMPHOCYTE # 1.1 TH/MM3 (1.0-4.8); MEAN CELL VOLUME 92.8 FL (80.0-100.0); MEAN CORPUSCULAR HEMOGLOBIN 31.5 PG (27.0-34.0); MONO % 8.4 % (0.0-8.0); NEUT % 82.8 % (16.0-70.0); PLATELET COUNT 70 TH/MM3 (150-450); RED BLOOD COUNT 4.44 MIL/MM3 (4.00-5.30); RED CELL DISTRIBUTION WIDTH 15.9 % (11.6-17.2); WHITE BLOOD COUNT 13.4 TH/MM3 (4.0-11.0)
[2016-09-23 03:58] LABS: HEMO FLAGS AUTO DIFF; INTERNATIONAL NORMALIZED RATIO 1.3 RATIO
--- NOTE | 2016-09-23 04:02 | RADRPT ---
EXAM DATE/TIME: 09/23/2016 03:14 [facility] COMPARISON: CHEST SINGLE AP, September 19, 2016, 6:37. INDICATIONS : Short of breath. MEDICAL HISTORY : Hypertension. SURGICAL HISTORY : heart valve replaced. ENCOUNTER: Initial ACUITY: 1 day PAIN SCORE: 0/10 LOCATION: Bilateral chest FINDINGS: A single view of the chest demonstrates the lungs to be symmetrically aerated without evidence of mas s, infiltrate or effusion. The cardiomediastinal contours are unremarkable. Osseous structures are intact. The patient is again noted to be status post median sternotomy. There is an artificial heart valve in place. Atherosclerotic calcifications are present in the aorta. There are multiple overlying cardiogram leads. CONCLUSION: No acute disease. Status post median sternotomy. Mandeep Abbasi MD on September 23, 2016 at 3:59 Board Certified Radiologist. This report was verified electronically.
[2016-09-23 04:05] LABS: APTT (PATIENT) 27.5 SEC (24.3-30.1)
[2016-09-23 04:23] LABS: ALKALINE PHOSPHATASE 259 U/L (45-117); ALT (GPT) 76 U/L (10-53); ANION GAP 6 MEQ/L (5-15); AST (GOT) 96 U/L (15-37); BICARBONATE 26.7 MEQ/L (21.0-32.0); BLOOD UREA NITROGEN 35 MG/DL (7-18); CHLORIDE 104 MEQ/L (98-107); GLOMERULAR FILTRATION RATE 65 ML/MIN (>89); MAGNESIUM 2.2 MG/DL (1.5-2.5); POTASSIUM 5.5 MEQ/L (3.5-5.1); SODIUM (NA) 137 MEQ/L (136-145); TOTAL BILIRUBIN ADULT 1.2 MG/DL (0.2-1.0)
[2016-09-23 04:35] LABS: BLOOD, URINE LARGE (NEG); GLUCOSE,URINE 70 mg/dL (NEG); KETONE, URINE NEG (NEG); NITRITE,URINE NEG (NEG); PH, URINE 7.5 (5.0-8.5)
[2016-09-23 04:36] LABS: URINE COLOR RED (YELLW/STRAW)
[2016-09-23 04:38] LABS: BACTERIA, URINE MOD /hpf; COMMENT (UR) CULTURE INDICATED; CULTURE IF INDICATED CULTURE INDICATED
[2016-09-23 04:55] LABS: BANDS 10 % (0-6); EOSINOPHILS 1 % (0-4); METAMYELOCYTES 1 % (0-1); NEUTROPHIL # MANUAL DIFF 10.6 TH/MM3 (1.8-7.7); POLYS (SEG NEUTROPHILS) 68 % (16-70); WBC DIFF SAMPLE 100
[2016-09-23 04:56] LABS: ACANTHOCYTES OCC (NORMAL); OVALOCYTES 1+ (NORMAL); PLATELET ESTIMATE SMEAR LOW (NORMAL); PLATELET MORPHOLOGY NORMAL (NORMAL); SCAN/DIFF FINAL DIFF MANUAL
[2016-09-23] MEDS ORDERED: IOHEXOL 350 MG/ML 10 ML VIAL (for RAD DIAG) IV ONE (05:42)
[2016-09-23] MEDS ORDERED: hydrALAZINE HCL 20 MG/ML VIAL IV PUSH ONE (06:00)
[2016-09-23] MEDS: SODIUM CHLOR 0.9% 1000 ML INJ 1,000 ML IV SCH ×2 (06:13→20:18)
[2016-09-23] MEDS ORDERED: MAGNESIUM HYDROXIDE SUSP 30 ML CUP PO PRN (06:15)
[2016-09-23] MEDS ORDERED: ONDANSETRON HCL 4 MG/2 ML VIAL IV PUSH ONE (06:15)
[2016-09-23] MEDS ORDERED: GLUCAGON 1 MG/ML VIAL OTHER PRN (06:15)
[2016-09-23] MEDS ORDERED: ACETAMINOPHEN 325 MG TAB PO PRN (06:15)
[2016-09-23] MEDS ORDERED: DEXTROSE 50% IN WATER 50 ML VIAL(D50) IV PRN (06:15)
[2016-09-23] MEDS ORDERED: MORPHINE SULFATE 4 MG/ML INJ IV PUSH ONE (06:15)
[2016-09-23] MEDS ORDERED: SENNOSIDES 8.6 MG TAB PO PRN (06:15)
[2016-09-23] MEDS ORDERED: NALOXONE HCL 0.4 MG/ML AMP IV PRN (06:15)
[2016-09-23] MEDS ORDERED: ONDANSETRON HCL 4 MG/2 ML VIAL IVP PRN (06:15)
--- NOTE | 2016-09-23 06:15 | RADRPT ---
EXAM DATE/TIME: 09/23/2016 05:42 [facility] COMPARISON: No previous studies available for comparison. INDICATIONS : Right lower quadrant pain, blood found in ileal conduit. IV CONTRAST: 97 cc Omnipaque 350 (iohexol) IV ORAL CONTRAST: No oral contrast ingested. RADIATION DOSE: 11.08 CTDIvol (mGy) MEDICAL HISTORY : Chronic obstructive pulmonary disease. Congestive heart failure. Coronary artery disease. Bladder can cer. Bowel cancer. SURGICAL HISTORY : Colon resection. Appendectomy. Cholecystectomy. Lymph node removal. ENCOUNTER: Initial ACUITY: 1 day PAIN SCALE: 6/10 LOCATION: Right lower quadrant TECHNIQUE: Volumetric scanning of the abdomen and pelvis was performed. Using automated exposure control and ad justment of the mA and/or kV according to patient size, radiation dose was kept as low as reasonably achievable to obtain optimal diagnostic quality images. DICOM format image data is available electro nically for review and comparison. FINDINGS: LOWER LUNGS: There is a small left pleural effusion. LIVER: Homogeneous density without lesion. There is no dilation of the biliary tree. No calcified gallston es. The gallbladder appears contracted. The common bile duct is prominent measures up to 1 cm. SPLEEN: Normal size without lesion. PANCREAS: Within normal limits. KIDNEYS: Normal in size and shape. There is no mass, stone or hydronephrosis. ADRENAL GLANDS: Within normal limits. VASCULAR: There is no aortic aneurysm. BOWEL/MESENTERY: There is an abnormal bowel gas pattern with multiple loops of nondilated air-containing small bowel w ith multiple small air-fluid levels. There is no free air. Ascitic fluid is present greatest in the r ight paracolic gutter as well as apparent inflammatory change. No oral contrast was given limiting th e sensitivity of the exam. There is enhancement of the gresham of the proximal small bowel as well as m ultiple loops of ileum.. There is no free air. An ostomy is present in the right lower quadrant. Ther e are post surgical changes status post colonic resection. ABDOMINAL WALL: An ostomy is present in the right lower quadrant. RETROPERITONEUM: There is no lymphadenopathy. BLADDER: No wall thickening or mass. REPRODUCTIVE: Within normal limits. INGUINAL: There is no lymphadenopathy or hernia. MUSCULOSKELETAL: Osteopenia, degenerative changes and scoliosis are present. There is evidence of anasarca. CONCLUSION: 1. Abnormal bowel gas pattern with apparent inflammatory change and enhancement in the right upper qu adrant the proximal small bowel and mid ileum. The findings are nonspecific. 2. Post surgical changes status post colonic resection. There is an ostomy in the right lower quadran t. 3. Anasarca. 4. The common bile duct appears prominent and measures up to 1 cm. Mandeep Abbasi MD on September 23, 2016 at 6:04 Board Certified Radiologist. This report was verified electronically.
[2016-09-23] MEDS ORDERED: CIPROFLOXACIN 400 MG PREMIX 200 ML IV ONE (07:30)
[2016-09-23] MEDS ORDERED: RESP: ALBUTEROL 2.5 MG/IPRATROPIUM 0.5 MG NEB (PRN) NEB (07:30)
[2016-09-23] MEDS ORDERED: ENALAPRILAT 1.25 MG/ML VIAL IV PUSH PRN (07:30)
[2016-09-23] MEDS ORDERED: BENZONATATE 100 MG CAP PO PRN (07:30)
[2016-09-23] MEDS ORDERED: PILL SPLITTER OTHER PRN (07:45)
[2016-09-23] MEDS: BUDESONIDE-FORMOTEROL 80/4.5 MCG INHALER INH SCH ×2 (09:00→21:00)
[2016-09-23] MEDS: LISINOPRIL 20 MG TAB PO SCH ×2 (09:00→23:00)
--- NOTE | 2016-09-23 09:22 | HHI.HP ---
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 Patient was recently diagnosed with left breast cancer, she is due to have lumpectomy October [address] Morris. Patient was discharged yesterday after been admitted on September 17 for COPD exacerbation with bronchitis. She was discharged on by mouth antibiotics and oral steroids in stable condition. Patient returns to the emergency room with an episode of waking up last night and noticing blood and ileal conduit bag. Indicates she had approximately 3 episodes. Patient takes Eliquis for history of recurrent DVT and PE. She has history of bladder cancer and was following up with a urology oncologist in [place]. She has not established herself with urologist locally. She reported some lower abdomen pain. Denies any nausea, no vomiting. She continues to have some cough with sputum production, has chest pain that is associated with coughing. Patient was evaluated in emergency room, laboratory workup was completed. H&H was stable, 14/41.2. Platelets are noted trending down from recent admission, currently 70. WBC 13.4. Was noted with elevated potassium level of 5.5. Renal function stable. CT of the abdomen and pelvis showed abnormal bowel gas pattern with apparent inflammatory change and enhancement in the right upper quadrant the proximal small bowel and mid ileum, findings nonspecific. Postsurgical changes status post colonic resection. Ostomy in the right lower quadrant. Anasarca., Bile duct appears prominent and measures up to 1 cm. Chest x-ray did not reveal any acute findings. Patient was given morphine and Zofran for complaining of pain and nausea. Her blood pressure was initially elevated and she will require hydralazine IV. Blood pressures now trending down. At this time, patient is sleepy, wakes to voice but most of the questions are answered per her daughter. She has multiple questions and is requesting a urology oncology. I have explained to her that I urologist has been consulted and the patient will be evaluated for appropriate management. At this time her H&H is stable and does not require any blood transfusion. There is blood-tinged urine noted in the ostomy, no clots are noted. Patient is hemodynamically stable. Patient is admitted for further evaluation and treatment. Review of Systems ROS Limitations: Clinical Condition (sleepy, tired, falling asleep ) Respiratory: COMPLAINS OF: Cough, Wheezing, Sputum production Gastrointestinal: COMPLAINS OF: Abdominal pain, Difficulty Swallowing (recent dysphagia, required dilatation. Pt. with occ coughing, daughter concerned she is "choking" on food again. ) Genitourinary: COMPLAINS OF: Hematuria Past Family Social History Past Medical History COPD anxiety Arthritis Asthma CAD Amaurosis Fugax TIA Hyperlipidemia HTN Hypothyroid Bladder cancer, s/p cystectomy Recurrent neuroendocrine carcinoma Left breast cancer, newly diagnosed due to have lumpectomy with Dr. Schroeder October 05. Supposed to have radiation after with Dr. Morris Recurrent DVT, PE Past Surgical History Appendectomy AVR and single-vessel CABG in 2009 Cholecystectomy Cystectomy with ileal conduit EGD with dilatation Tonsillectomy Lymph node removal Bowel resection Reported Medications Reported Meds & Active Scripts Active Prednisone 10 Mg Tab 10 Mg PO TID 8 Days Take 1 tab po tid for 2 days, then 1 tab po bid for 3 days, then 1 tab po daily for 3 days, then discontinue [guaiFENesin ER] 600 MG Tabcr 600 Mg PO BID 10 Days Lisinopril 20 Mg Tab 20 Mg PO Q12HR 30 Days Hydralazine HCl 25 Mg Tablet 25 Mg PO Q8HR 30 Days Cefuroxime (Cefuroxime Axetil) 500 Mg Tab 500 Mg PO Q12HR 7 Days Symbicort Inh (Budesonide/Formoterol Fumarate) 80-4.5 Mcg/Act Aero 2 Puff INH Q12HR 30 Days Reported Paroxetine (Paroxetine HCl) 30 Mg Tab 30 Mg PO DAILY Benzonatate 100 Mg Cap 100 Mg PO TID PRN Morphine ER (Morphine Sulfate) 15 Mg Tab 15 Mg PO Q6HR Vitamin D3 (Cholecalciferol) 1,000 Unit Tab 2,000 Units PO DAILY Pravastatin 10 Mg Tab 10 Mg PO HS Eliquis (Apixaban) 2.5 Mg Tab 2.5 Mg PO DAILY Singulair (Montelukast Sodium) 10 Mg Tab 10 Mg PO HS Levothyroxine (Levothyroxine Sodium) 150 Mcg Tab 150 Mcg PO DAILY Mirtazapine 45 Mg Tab 45 Mg PO HS Atenolol 50 Mg Tab 50 Mg PO DAILY Allergies: Coded Allergies: Ambien (Verified Allergy, Severe, Confusion, 09/15/16) Codeine (Verified Allergy, Severe, nausea , 09/15/16) Dramamine (Verified Allergy, Severe, Confusion, 09/15/16) HMG-CoA Reductase Inhibitors (Verified Allergy, Severe, 09/15/16) Active Ordered Medications Inpatient Medications Acetaminophen (Tylenol) 650 mg Q4H PRN PO TEMP > 100.4; Start 09/23/16 at 06:15 Albuterol/ Ipratropium (Duoneb Neb) 1 ampule Q4HR NEB PRN NEB wheezing; Start 09/23/16 at 09:15 Atenolol (Tenormin) 50 mg DAILY PO Last administered on 09/23/16 09:50; Start 09/23/16 at 09:00 Benzonatate (Tessalon) 100 mg TID PRN PO COUGH; Start 09/23/16 at 07:30 Budesonide/ Formoterol Fumarate (Symbicort 80-4.5 Mcg Inh) 2 puff Q12HR INH ; Start 09/23/16 at 09:00 Cefuroxime Axetil (Ceftin) 500 mg Q12HR PO Last administered on 09/23/16 09:50 ; Start 09/23/16 at 09:00 Ciprofloxacin/ Dextrose (Cipro 400 Mg Premix) 200 ml @ 200 mls/hr ONCE ONCE IV Last administered on 09/23/16 10:37; Start 09/23/16 at 07:30; Stop at 08:29; Status DC Dextrose (D50w (Vial) Inj) 50 ml UNSCH PRN IV HYPOGLYCEMIA-SEE COMMENTS; Start 09/23/16 at 06:15 Enalaprilat (Vasotec Inj) 1.25 mg Q6H PRN IV PUSH SBP>170, DBP>90; Start 09/23 at 07:30 Glucagon (Glucagon Inj) 1 mg UNSCH PRN OTHER HYPOGLYCEMIA-SEE COMMENTS; Start 09/23/16 at 06:15 Guaifenesin (Mucinex Er) 600 mg BID PO Last administered on 09/23/16 09:50; Start 09/23/16 at 09:00 Hydralazine HCl (Apresoline) 25 mg Q8HR PO Last administered on 09/23/16 13:26 ; Start 09/23/16 at 14:00 Hydralazine HCl 10 mg 10 mg ONCE ONCE IV PUSH Last administered on 09/23/16 06:04; Start 09/23/16 at 06:00; Stop 09/23/16 at 06:01; Status DC Insulin Aspart 1 1 ACHS SLIDING SCALE SQ ; Start 09/23/16 at 07:00 Levothyroxine Sodium (Synthroid) 150 mcg DAILY@06 PO ; Start 09/23/16 at 07:39 Lisinopril (Prinivil) 20 mg Q12HR PO ; Start 09/23/16 at 09:00 Magnesium Hydroxide (Milk Of Magnesia Liq) 30 ml Q12H PRN PO MILD - MODERATE CONSTIPATION; Start 09/23/16 at 06:15 Mirtazapine (Remeron) 45 mg HS PO ; Start 09/23/16 at 21:00 Miscellaneous (Pill Splitter) 1 ea UNSCH PRN OTHER SEE LABEL COMMENTS; Start at 07:45 Montelukast Sodium (Singulair) 10 mg HS PO ; Start 09/23/16 at 21:00 Morphine Sulfate (Morphine Inj) 1 mg Q3H PRN IV PUSH pain 3-5; Start 09/23/16 at 06:15 Morphine Sulfate (Oramorph Sr) 15 mg BID PO Last administered on 09/23/16 10: 43; Start 09/23/16 at 10:00 Naloxone HCl (Narcan Inj) 0.4 mg UNSCH PRN IV SEE LABEL COMMENTS; Start at 06:15 Ondansetron HCl (Zofran Inj) 4 mg Q6H PRN IVP NAUSEA OR VOMITING; Start at 06:15 Paroxetine HCl (Paxil) 30 mg DAILY PO Last administered on 09/23/16 09:51; Start 09/23/16 at 09:00 Prednisone (Deltasone) 10 mg TID PO Last administered on 09/23/16 13:26; Start 09/23/16 at 13:00 Sennosides (Senokot) 17.2 mg Q12H PRN PO MODERATE - SEVERE CONSTIPATION; Start 09/23/16 at 06:15 Sodium Chloride (NS 1000 ml Inj) 1,000 ml @ 70 mls/hr [id number] IV Last administered on 09/23/16 06:13; Start 09/23/16 at 06:00 Sodium Chloride (NS Flush) 2 ml BID IV FLUSH Last administered on 09/23/16 10: 37; Start 09/23/16 at 09:00 Family History Reviewed, non contributory Social History Social History , lives with daughter. Non smoker, however heavy second hand exposure. Non drinker. No substance abuse. Physical Exam Vital Signs Vital Signs Date Time Temp Pulse Resp B/P Pulse Ox O2 Delivery O2 Flow Rate FiO2 09/23/16 08:29 97 Nasal Cannula 2.00 09/23/16 08:23 96.5 73 19 172/70 97 09/23/16 07:45 100 14 162/70 97 Nasal Cannula 2 09/23/16 06:30 101 16 165/70 96 Nasal Cannula 2 09/23/16 06:10 70 16 191/79 95 Nasal Cannula 2 09/23/16 06:00 80 16 202/136 97 Nasal Cannula 2 09/23/16 05:00 67 18 189/101 98 Nasal Cannula 2 09/23/16 04:00 69 18 193/88 95 Nasal Cannula 2 09/23/16 03:21 92 Room Air 09/23/16 03:11 98.1 80 20 94 Physical Exam GENERAL: This is a well-nourished, well-developed patient, in no apparent distress. SKIN: No rashes, ecchymoses or lesions. Cool and dry. HEAD: Atraumatic. Normocephalic. No temporal or scalp tenderness. EYES: Pupils equal round and reactive. Extraocular motions intact. No scleral icterus. No injection or drainage. ENT: Nose without bleeding, purulent drainage or septal hematoma. Throat without erythema, tonsillar hypertrophy or exudate. Uvula midline. Airway patent. NECK: Trachea midline. No JVD or lymphadenopathy. Supple, nontender, no meningeal signs. CARDIOVASCULAR: Regular rate and rhythm without murmurs, gallops, or rubs. RESPIRATORY: Clear to auscultation. Breath sounds equal bilaterally. No wheezes , rales, or rhonchi. GASTROINTESTINAL: Abdomen soft, non-tender, nondistended. No hepato-splenomegaly , or palpable masses. No guarding. MUSCULOSKELETAL: Extremities without clubbing, cyanosis, or edema. No joint tenderness, effusion, or edema noted. No calf tenderness. Negative Homans sign bilaterally. NEUROLOGICAL: Awake and alert. Cranial nerves II through XII intact. Motor and sensory grossly within normal limits. Five out of 5 muscle strength in all muscle groups. Normal speech. Laboratory Laboratory Tests Test 09/23/16 03:30 White Blood Count 13.4 Red Blood Count 4.44 Hemoglobin 14.0 Hematocrit 41.2 Mean Corpuscular Volume 92.8 Mean Corpuscular Hemoglobin 31.5 Mean Corpuscular Hemoglobin 34.0 Concent Red Cell Distribution Width 15.9 Platelet Count 70 Mean Platelet Volume 9.4 Neutrophils (%) (Auto) 82.8 Lymphocytes (%) (Auto) 8.3 Monocytes (%) (Auto) 8.4 Eosinophils (%) (Auto) 0.2 Basophils (%) (Auto) 0.3 Neutrophils # (Auto) 11.1 Lymphocytes # (Auto) 1.1 Monocytes # (Auto) 1.1 Eosinophils # (Auto) 0.0 Basophils # (Auto) 0.0 CBC Comment AUTO DIFF Differential Total Cells 100 Counted Neutrophils % (Manual) 68 Band Neutrophils % 10 Lymphocytes % 10 Monocytes % 10 Eosinophils % 1 Neutrophils # (Manual) 10.6 Metamyelocytes 1 Differential Comment FINAL DIFF MANUAL Platelet Estimate LOW Platelet Morphology Comment NORMAL Ovalocytes 1+ Acanthocytes OCC Prothrombin Time 15.0 Prothromb Time International 1.3 Ratio Activated Partial 27.5 Thromboplast Time Urine Color RED Urine Turbidity HAZY Urine pH 7.5 Urine Specific [place] 1.021 Urine Protein 300 Urine Glucose (UA) 70 Urine Ketones NEG Urine Occult Blood LARGE Urine Nitrite NEG Urine Bilirubin NEG Urine Urobilinogen LESS THAN 2.0 Urine Leukocyte Esterase SMALL Urine RBC Urine Bacteria MOD Microscopic Urinalysis Comment CULTURE INDICATED Sodium Level 137 Potassium Level 5.5 Chloride Level 104 Carbon Dioxide Level 26.7 Anion Gap 6 Blood Urea Nitrogen 35 Creatinine 0.83 Estimat Glomerular Filtration 65 Rate Random Glucose 192 Calcium Level 7.9 Magnesium Level 2.2 Total Bilirubin 1.2 Aspartate Amino Transf 96 (AST/SGOT) Alanine Aminotransferase 76 (ALT/SGPT) Alkaline Phosphatase 259 Total Protein 6.5 Albumin 2.5 Lipase 123 Date/Time Procedure Status Source Growth 09/23/16 03:30 Urine Culture Received Urine Clean Catch Pending Result Diagram: 09/23/1632909/23/16329 Imaging Last Impressions Abdomen/Pelvis CT 09/23/16514 Signed Impressions: Service Date/Time: Friday, September 23, 2016 05:42 - CONCLUSION: 1. Abnormal bowel gas pattern with apparent inflammatory change and enhancement in the right upper quadrant the proximal small bowel and mid ileum. The findings are nonspecific. 2. Post surgical changes status post colonic resection. There is an ostomy in the right lower quadrant. 3. Anasarca. 4. The common bile duct appears prominent and measures up to 1 cm. Mandeep Abbasi MD Chest X-Ray 09/23/16314 Signed Impressions: Service Date/Time: Friday, September 23, 2016 03:14 - CONCLUSION: No acute disease. Status post median sternotomy. Mandeep Abbasi MD Assessment and Plan Problem List: (1) Hematuria (2) Anticoagulated by anticoagulation treatment (3) Thrombocytopenia (4) COPD exacerbation (5) Breast cancer, left (6) Hx pulmonary embolism (7) Hx of deep venous thrombosis (8) COPD with exacerbation (9) HTN (hypertension) (10) Bronchitis (11) Hx of bladder cancer (12) UTI (urinary tract infection) (13) Hyperglycemia Assessment and Plan Admit to Dr. Crenshaw 86-year-old elderly white female recently presents to ED with hematuria x 3 episodes. Hx of bladder cancer, had cystectomy. Pt. takes Eliquis. Was noted with thrombocytopenia, platelets trending down. Hematuria Poss UTI, culture pending -Urology consultation -Monitor HH, transfuse if less < 8 -Monitor Platelets -Continue with PO abx for UTI, follow cultures Thrombocytopenia -Platelets noted trending down -may need hematology consultation, patient seen Dr. Meza as outpatient. -monitor for bleeding Recent admission for COPD exacerbation, with bronchitis-improving -Resume Ceftin, pt. not allergic, tolerating well at home -Continue PO steroids -Continue DuoNeb's Continue with Tessalon when necessary Mucinex 600 mg by mouth twice a day History DVT and PE Hold Eliquis for now due to hematuria Hypertension, uncontrolled Continue home medications -Add PRN Left breast cancer, recently diagnosed. Patient due to have lumpectomy with Dr. Schroeder in September. She is also to have radiation Prior history of bladder cancer, neuroendocrine malignancy Patient to follow-up with radiation oncology as outpatient Recent EGD with dilatation, their concern the patient continues to cough and may be choking on food Swallow evaluation will be obtained Hyperglycemia, likely secondary to steroids -Monitor blood glucose Home medications reviewed, initiated as indicated SCDs DVT prophylaxis Plan of care has been discussed with the patient and her daughter, their questions answered in detail. Plan of care discussed with attending and registered nurse. Further management of the patient will be dependent on the hospital course This patient was seen by myself and Dr. Crenshaw, this H&P is written on her behalf Physician Certification 2 Midnight Certification Type: Admission for Inpatient Services Order for Inpatient Services The services are ordered in accordance with Medicare regulations or non- Medicare payer requirements, as applicable. In the case of services not specified as inpatient-only, they are appropriately provided as inpatient services in accordance with the 2-midnight benchmark. Estimated LOS (days): 2 2 days is the estimated time the patient will need to remain in the hospital, assuming treatment plan goals are met and no additional complications. Post-Hospital Plan: Home Health Problem Qualifiers (1) Hematuria: Qualified Code: R31.0 - Gross hematuria (2) Breast cancer, left: Qualified Code: C50.912 - Malignant neoplasm of left female breast, unspecified estrogen receptor status, unspecified site of breast (3) HTN (hypertension): Qualified Code: I10 - Essential hypertension (4) UTI (urinary tract infection): Qualified Code: N39.0 - Urinary tract infection with hematuria, site unspecified Linda Land Sep 23, 2016 09:22
[2016-09-23] MEDS: CEFUROXIME AXETIL 500 MG TAB PO SCH ×2 (09:50→22:59)
[2016-09-23] MEDS: guaiFENesin E.R. 600 MG TAB PO SCH ×2 (09:50→22:59)
[2016-09-23] MEDS: LEVOTHYROXINE SODIUM 150 MCG TAB PO SCH (09:50)
[2016-09-23] MEDS: ATENOLOL 50 MG TAB PO SCH (09:50)
[2016-09-23] MEDS: PARoxetine HCL 20 MG TAB PO SCH (09:51)
--- NOTE | 2016-09-23 10:24 | PD.CONS ---
[facility] Service Urology Consult Requested By Reason for Consult Gross hematuria Primary Care Physician Arnie Trevizo MD Diagnosis: History of Present Illness 86-year-old female with history bladder cancer who is presently on anticoagulation therapy for DVT with Eliquis who was recently discharged from the hospital after being admitted for COPD exacerbation and bronchitis. Patient presents now with new onset gross hematuria from her ileal conduit. Apparently this began yesterday evening. The patient is status post a radical cystectomy and ileal conduit urinary diversion back in 1988 for bladder cancer. She has not had any evidence of recurrent disease to date. She also was recently diagnosed as having breast cancer and is scheduled to undergo a lumpectomy within the next 2-[address] scan of the abdomen was performed that demonstrated normal-appearing kidneys without any evidence of mass lesions or hydronephrosis. Laboratory studies significant for elevation of the PT and INR as well as a low platelet count. Hematocrit was normal. At the time of consultation the patient was resting quietly in bed and in no acute distress. She denied flank pain. She has been afebrile. Review of Systems Constitutional: DENIES: Fever, Night Sweats Cardiovascular: DENIES: Chest pain Gastrointestinal: DENIES: Abdominal pain Genitourinary: COMPLAINS OF: Hematuria Except as stated in HPI: all other systems reviewed are Neg Past Family Social History Past Medical History Bladder cancer diagnosed 1988 COPD Bronchitis Asthma Recently diagnosed left breast cancer line anxiety disorder Arthritis Coronary artery disease TIA history Hypertension Hypothyroidism Esophageal stricture History colon cancer History recurrent DVT History pulmonary embolism Past Surgical History Status post radical cystectomy with ileal conduit urinary diversion 1988 Status post aortic valve replacement Status post single-vessel coronary artery bypass graft 2009 Status post cholecystectomy Status post EGD with esophageal dilation Status post bowel resection surgery Reported Medications Refer to EMR Allergies: Coded Allergies: Ambien (Verified Allergy, Severe, Confusion, 09/15/16) Codeine (Verified Allergy, Severe, nausea , 09/15/16) Dramamine (Verified Allergy, Severe, Confusion, 09/15/16) HMG-CoA Reductase Inhibitors (Verified Allergy, Severe, 09/15/16) Active Ordered Medications Refer to EMR Family History Reviewed and noncontributory Social History Denies tobacco, alcohol or intravenous drug abuse Physical Exam Vital Signs Date Time Temp Pulse Resp B/P Pulse Ox O2 Delivery O2 Flow Rate FiO2 09/23/16 08:29 97 Nasal Cannula 2.00 09/23/16 08:23 96.5 73 19 172/70 97 09/23/16 07:45 100 14 162/70 97 Nasal Cannula 2 09/23/16 06:30 101 16 165/70 96 Nasal Cannula 2 09/23/16 06:10 70 16 191/79 95 Nasal Cannula 2 09/23/16 06:00 80 16 202/136 97 Nasal Cannula 2 09/23/16 05:00 67 18 189/101 98 Nasal Cannula 2 09/23/16 04:00 69 18 193/88 95 Nasal Cannula 2 09/23/16 03:21 92 Room Air 09/23/16 03:11 98.1 80 20 94 Physical Exam GENERAL: This is a well-nourished, well-developed patient, in no apparent distress. SKIN: No rashes, ecchymoses or lesions. Cool and dry. HEAD: Atraumatic. Normocephalic. No temporal or scalp tenderness. EYES: Pupils equal round and reactive. Extraocular motions intact. No scleral icterus. No injection or drainage. ENT: Nose without bleeding, purulent drainage or septal hematoma. Throat without erythema, tonsillar hypertrophy or exudate. Uvula midline. Airway patent. NECK: Trachea midline. No JVD or lymphadenopathy. Supple, nontender, no meningeal signs. GASTROINTESTINAL: Abdomen soft, non-tender, nondistended. No hepato-splenomegaly , or palpable masses. No guarding. GENITOURINARY: No CVA tenderness. Ilial conduit draining medium red urine without clots. Urine not purulent MUSCULOSKELETAL: Extremities without clubbing, cyanosis, or edema. No joint tenderness, effusion, or edema noted. No calf tenderness. Negative Homans sign bilaterally. NEUROLOGICAL: Awake and alert. Cranial nerves II through XII intact. Motor and sensory grossly within normal limits. Five out of 5 muscle strength in all muscle groups. Normal speech. Lab results reviewed: Yes Laboratory Tests Test 09/23/16 03:30 White Blood Count 13.4 Red Blood Count 4.44 Hemoglobin 14.0 Hematocrit 41.2 Mean Corpuscular Volume 92.8 Mean Corpuscular Hemoglobin 31.5 Mean Corpuscular Hemoglobin 34.0 Concent Red Cell Distribution Width 15.9 Platelet Count 70 Mean Platelet Volume 9.4 Neutrophils (%) (Auto) 82.8 Lymphocytes (%) (Auto) 8.3 Monocytes (%) (Auto) 8.4 Eosinophils (%) (Auto) 0.2 Basophils (%) (Auto) 0.3 Neutrophils # (Auto) 11.1 Lymphocytes # (Auto) 1.1 Monocytes # (Auto) 1.1 Eosinophils # (Auto) 0.0 Basophils # (Auto) 0.0 CBC Comment AUTO DIFF Differential Total Cells 100 Counted Neutrophils % (Manual) 68 Band Neutrophils % 10 Lymphocytes % 10 Monocytes % 10 Eosinophils % 1 Neutrophils # (Manual) 10.6 Metamyelocytes 1 Differential Comment FINAL DIFF MANUAL Platelet Estimate LOW Platelet Morphology Comment NORMAL Ovalocytes 1+ Acanthocytes OCC Prothrombin Time 15.0 Prothromb Time International 1.3 Ratio Activated Partial 27.5 Thromboplast Time Urine Color RED Urine Turbidity HAZY Urine pH 7.5 Urine Specific [place] 1.021 Urine Protein 300 Urine Glucose (UA) 70 Urine Ketones NEG Urine Occult Blood LARGE Urine Nitrite NEG Urine Bilirubin NEG Urine Urobilinogen LESS THAN 2.0 Urine Leukocyte Esterase SMALL Urine RBC Urine Bacteria MOD Microscopic Urinalysis Comment CULTURE INDICATED Sodium Level 137 Potassium Level 5.5 Chloride Level 104 Carbon Dioxide Level 26.7 Anion Gap 6 Blood Urea Nitrogen 35 Creatinine 0.83 Estimat Glomerular Filtration 65 Rate Random Glucose 192 Calcium Level 7.9 Magnesium Level 2.2 Total Bilirubin 1.2 Aspartate Amino Transf 96 (AST/SGOT) Alanine Aminotransferase 76 (ALT/SGPT) Alkaline Phosphatase 259 Total Protein 6.5 Albumin 2.5 Lipase 123 Date/Time Procedure Status Source Growth 09/23/16 03:30 Urine Culture Received Urine Clean Catch Pending Result Diagram: 09/23/16 0330 09/23/16 033 Personally reviewed images: Yes Imaging Last Impressions Abdomen/Pelvis CT 09/23/16 0515 Signed Impressions: Service Date/Time: Friday, September 23, 2016 05:42 - CONCLUSION: 1. Abnormal bowel gas pattern with apparent inflammatory change and enhancement in the right upper quadrant the proximal small bowel and mid ileum. The findings are nonspecific. 2. Post surgical changes status post colonic resection. There is an ostomy in the right lower quadrant. 3. Anasarca. 4. The common bile duct appears prominent and measures up to 1 cm. Mandeep Abbasi MD Chest X-Ray 09/23/16 [id number] Signed Impressions: Service Date/Time: Friday, September 23, 2016 03:14 - CONCLUSION: No acute disease. Status post median sternotomy. Mandeep Abbasi MD Assessment and Plan Assessment and Plan Urologic impression: #1 history bladder cancer status post radical cystectomy and ileal conduit urinary diversion 1988 without evidence recurrent disease to date #2 hematuria related to combination of anticoagulation therapy and thrombocytopenia Recommendations: #1 conservative management with correction of underlying coagulopathy #2 ongoing outpatient urologic follow up on an annual basis Augie Paredes MD Sep 23, 2016 10:24
[2016-09-23] MEDS: SODIUM CHLORIDE 0.9% FLUSH 10 ML FLUSH IV FLUSH SCH ×2 (10:37→21:00)
[2016-09-23] MEDS: INSULIN ASPART SUPPLEMENTAL SCALE SQ SCH ×3 (10:41→21:00)
[2016-09-23] MEDS: MORPHINE SULFATE 15 MG CONTROLLED RELEASE TAB PO SCH ×2 (10:43→23:00)
[2016-09-23] MEDS: RESP: ALBUTEROL 2.5 MG/IPRATROPIUM 0.5 MG NEB (SCH) NEB ×3 (11:53→19:20)
[2016-09-23 12:21] LABS: BICARBONATE 29.3 MEQ/L (21.0-32.0)
[2016-09-23] MEDS: hydrALAZINE HCL 25 MG TAB PO SCH ×2 (13:26→22:59)
[2016-09-23] MEDS: predniSONE 10 MG TAB PO SCH ×2 (13:26→20:05)
--- NOTE | 2016-09-23 14:11 | EKG ---
Date Performed: 09/23/2016 Time Performed: 04:02:02 PTAGE: 86 years EKG: Sinus rhythm WITH FREQUENT SUPRAVENTRICULAR PREMATURE COMPLEXES NONSPECIFIC T-WAVE ABNORMALITY ABNORMAL RHYTHM EC G Compared to prior tracing no significant change PREVIOUS TRACING : 09/15/2016 23.32 DOCTOR: Rios Morales Interpretating Date/Time 09/23/2016 14:10:09
[2016-09-23] MEDS: MONTELUKAST SODIUM 10 MG TAB PO SCH (23:00)
[2016-09-23] MEDS: MIRTAZAPINE 15 MG TAB PO SCH (23:00)
[2016-09-24] VITALS (7 sets, daily range): BP systolic 117–152; BP diastolic 56–90; PULSE 63–82; RESP 17–22; TEMP 96.1–97.5; O2SAT 91–97
[2016-09-24] MEDS: INSULIN ASPART SUPPLEMENTAL SCALE SQ SCH ×4 (05:31→22:12)
[2016-09-24] MEDS: LEVOTHYROXINE SODIUM 150 MCG TAB PO SCH (05:32)
[2016-09-24] MEDS: hydrALAZINE HCL 25 MG TAB PO SCH ×3 (05:32→21:54)
[2016-09-24] MEDS: RESP: ALBUTEROL 2.5 MG/IPRATROPIUM 0.5 MG NEB (SCH) NEB ×4 (07:41→19:57)
[2016-09-24] MEDS: predniSONE 10 MG TAB PO SCH ×2 (08:13→21:54)
[2016-09-24] MEDS: guaiFENesin E.R. 600 MG TAB PO SCH ×2 (08:14→21:53)
[2016-09-24] MEDS: CEFUROXIME AXETIL 500 MG TAB PO SCH ×2 (08:14→21:52)
[2016-09-24] MEDS: PARoxetine HCL 20 MG TAB PO SCH (08:14)
[2016-09-24] MEDS: MORPHINE SULFATE 15 MG CONTROLLED RELEASE TAB PO SCH ×2 (08:15→21:54)
[2016-09-24] MEDS: LISINOPRIL 20 MG TAB PO SCH ×2 (08:17→21:52)
[2016-09-24] MEDS: ATENOLOL 50 MG TAB PO SCH (08:17)
[2016-09-24] MEDS: SODIUM CHLORIDE 0.9% FLUSH 10 ML FLUSH IV FLUSH SCH ×2 (08:19→21:55)
[2016-09-24 08:26] LABS: TOTAL BILIRUBIN ADULT 1.2 MG/DL (0.2-1.0)
[2016-09-24 08:29] LABS: AUTOMATED NEUTROPHIL # 8.7 TH/MM3 (1.8-7.7); BASOPHIL % 0.2 % (0.0-2.0); EOSINOPHIL # 0.1 TH/MM3 (0-0.4); EOSINOPHIL % 0.7 % (0.0-4.0); HEMATOCRIT 41.8 % (35.0-46.0); LYMPH % 14.1 % (9.0-44.0); LYMPHOCYTE # 1.6 TH/MM3 (1.0-4.8); MEAN CELL VOLUME 94.1 FL (80.0-100.0); MEAN CORPUSCULAR HEMOGLOBIN 30.4 PG (27.0-34.0); MEAN CORPUSCULAR HGB CONC 32.3 % (32.0-36.0); MONO % 8.2 % (0.0-8.0); NEUT % 76.8 % (16.0-70.0); PLATELET COUNT 41 TH/MM3 (150-450); RED BLOOD COUNT 4.45 MIL/MM3 (4.00-5.30); RED CELL DISTRIBUTION WIDTH 15.7 % (11.6-17.2); WHITE BLOOD COUNT 11.4 TH/MM3 (4.0-11.0)
[2016-09-24 08:30] LABS: HEMO FLAGS AUTO DIFF
[2016-09-24] MEDS: SODIUM CHLOR 0.9% 1000 ML INJ 1,000 ML IV SCH (08:30)
[2016-09-24 08:31] LABS: BICARBONATE 24.7 MEQ/L (21.0-32.0); INDIRECT BILIRUBIN 0.9 MG/DL (0.0-0.8)
[2016-09-24 08:32] LABS: POTASSIUM 4.6 MEQ/L (3.5-5.1)
[2016-09-24] MEDS: BUDESONIDE-FORMOTEROL 80/4.5 MCG INHALER INH SCH ×2 (09:00→22:13)
[2016-09-24 09:26] LABS: OVALOCYTES 2+ (NORMAL); PLATELET ESTIMATE SMEAR LOW (NORMAL); PLATELET MORPHOLOGY NORMAL (NORMAL); SCAN/DIFF AUTO DIFF CONFIRMED
[2016-09-24] MEDS: MORPHINE SULFATE 4 MG/ML INJ IV PUSH PRN (10:01)
[2016-09-24] MEDS ORDERED: guaiFENesin/DEXTROMETHORPHAN 200 MG/20 MG/10 ML CUP PO PRN (13:15)
--- NOTE | 2016-09-24 13:15 | HHI.PR ---
Subjective Remarks awake, oriented x 3 eating well coughing, inc. last night allergic to hycodan feels better no more hematuria noted, urine light maria m noted no cp has been walking with daughter no petechiae no hematemesis low platelets noted, d/w pt and daughter pt. anxious to go home, wants to do work up as OP. Explained that heme needs to see before dc and plat. have been trending down. Objective Objective Results - Vital Signs Date Time Temp Pulse Resp B/P Pulse Ox O2 Delivery O2 Flow Rate FiO2 09/24/16 08:00 97.3 82 22 132/65 97 09/24/16 04:00 97.0 72 18 132/62 91 09/24/16 00:05 16 09/24/16 00:00 97.3 79 18 117/56 94 09/23/16 20:00 96.4 73 18 116/55 92 09/23/16 19:20 93 09/23/16 16:48 96.2 74 20 129/58 95 I/O 09/23/16 09/23/16 09/23/16 09/24/16 09/24/16 09/24/16 07:00 15:00 23:00 07:00 15:00 23:00 Intake Total 453 ml Output Total 1075 ml Balance -622 ml Intake Oral 240 ml IV Total 213 ml Output Urine Total 1075 ml # Voids 2 Result Diagram: 09/24/16 0651 09/24/16 0651 Imaging Last Impressions Abdomen/Pelvis CT 09/23/16 0515 Signed Impressions: Service Date/Time: Friday, September 23, 2016 05:42 - CONCLUSION: 1. Abnormal bowel gas pattern with apparent inflammatory change and enhancement in the right upper quadrant the proximal small bowel and mid ileum. The findings are nonspecific. 2. Post surgical changes status post colonic resection. There is an ostomy in the right lower quadrant. 3. Anasarca. 4. The common bile duct appears prominent and measures up to 1 cm. Mandeep Abbasi MD Chest X-Ray 09/23/16 0315 Signed Impressions: Service Date/Time: Friday, September 23, 2016 03:14 - CONCLUSION: No acute disease. Status post median sternotomy. Mandeep Abbasi MD Other Results Laboratory Tests Test 09/24/16 06:51 White Blood Count 11.4 Red Blood Count 4.45 Hemoglobin 13.5 Hematocrit 41.8 Mean Corpuscular Volume 94.1 Mean Corpuscular Hemoglobin 30.4 Mean Corpuscular Hemoglobin 32.3 Concent Red Cell Distribution Width 15.7 Platelet Count 41 Mean Platelet Volume 8.7 Neutrophils (%) (Auto) 76.8 Lymphocytes (%) (Auto) 14.1 Monocytes (%) (Auto) 8.2 Eosinophils (%) (Auto) 0.7 Basophils (%) (Auto) 0.2 Neutrophils # (Auto) 8.7 Lymphocytes # (Auto) 1.6 Monocytes # (Auto) 0.9 Eosinophils # (Auto) 0.1 Basophils # (Auto) 0.0 CBC Comment AUTO DIFF Differential Comment AUTO DIFF CONFIRMED Platelet Estimate LOW Platelet Morphology Comment NORMAL Ovalocytes 2+ Hematology Comments Sodium Level 139 Potassium Level 4.6 Chloride Level 105 Carbon Dioxide Level 24.7 Anion Gap 9 Blood Urea Nitrogen 35 Creatinine 0.79 Estimat Glomerular Filtration 69 Rate Random Glucose 111 Calcium Level 7.8 Total Bilirubin 1.2 Direct Bilirubin 0.3 Indirect Bilirubin 0.9 Aspartate Amino Transf 77 (AST/SGOT) Alanine Aminotransferase 81 (ALT/SGPT) Alkaline Phosphatase 234 Total Protein 5.8 Albumin 2.1 Date/Time Procedure Status Source Growth 09/23/16 03:30 Urine Culture - Preliminary Resulted Urine Clean Catch Group D Enterococcus Physical Exam Physical Exam GENERAL: This is a well-nourished, well-developed patient, in no apparent distress. SKIN: No rashes, ecchymoses or lesions. Cool and dry. HEAD: Atraumatic. Normocephalic. No temporal or scalp tenderness. EYES: Pupils equal round and reactive. Extraocular motions intact. No scleral icterus. No injection or drainage. ENT: Nose without bleeding, purulent drainage or septal hematoma. Throat without erythema, tonsillar hypertrophy or exudate. Uvula midline. Airway patent. NECK: Trachea midline. No JVD or lymphadenopathy. Supple, nontender, no meningeal signs. CARDIOVASCULAR: Regular rate and rhythm without murmurs, gallops, or rubs. RESPIRATORY: coarse ronchi and exp. wheezes. + cough. : ileal conduit with light maria m urine. GASTROINTESTINAL: Abdomen soft, non-tender, nondistended. No hepato-splenomegaly , or palpable masses. No guarding. MUSCULOSKELETAL: Extremities without clubbing, cyanosis, or edema. No joint tenderness, effusion, or edema noted. No calf tenderness. Negative Homans sign bilaterally. NEUROLOGICAL: Awake and alert. Cranial nerves II through XII intact. Motor and sensory grossly within normal limits. Five out of 5 muscle strength in all muscle groups. Normal speech. Urinary Catheter: No Vascular Central Line Catheter: No A/P Diagnosis: (1) Hematuria (2) Anticoagulated by anticoagulation treatment (3) Thrombocytopenia (4) COPD exacerbation (5) Breast cancer, left (6) Hx pulmonary embolism (7) Hx of deep venous thrombosis (8) COPD with exacerbation (9) HTN (hypertension) (10) Bronchitis (11) Hx of bladder cancer (12) UTI (urinary tract infection) (13) Hyperglycemia Assessment and Plan 86-year-old elderly white female recently presents to ED with hematuria x 3 episodes. Hx of bladder cancer, had cystectomy. Pt. takes Eliquis. Was noted with thrombocytopenia, platelets trending down. Hematuria Poss UTI, culture pending -Urology input appreciated, no further recommendations. Recommends to correct coagulopathy. Pt can f/u annually -HH stable 13.5/41.8, no active bleeding. Hematuria resolved -platelets dropping -Continue with PO abx for UTI, follow cultures Thrombocytopenia-etiology unclear, meds?, recent infection. -Platelets noted trending down, 41 today -Hematology consultation -Monitor for any bleeding. -No petechia noted, H&H stable. Discussed with patient and daughter at length, they are agreeable with remaining in the hospital for further workup. Recent admission for COPD exacerbation, with bronchitis-improving slowly. -Continue with Ceftin -Continue PO steroids, and wean off slowly -Continue DuoNeb's Continue with Tessalon when necessary Mucinex 600 mg by mouth twice a day -Add Robitussin when necessary History DVT and PE Continue to hold Eliquis until further evaluation for thrombocytopenia. Hypertension, uncontrolled Continue home medications -Add PRN BP meds Left breast cancer, recently diagnosed. Patient due to have lumpectomy with Dr. Schroeder in September. She is also to have radiation Prior history of bladder cancer, neuroendocrine malignancy Patient to follow-up with radiation oncology as outpatient Recent EGD with dilatation, their concern the patient continues to cough and may be choking on food Swallow evaluation done, recommendations noted. -No signs and symptoms of aspiration noted Hyperglycemia, likely secondary to steroids -Continue with low-dose insulin for sliding scale, blood glucose elevated secondary to steroids. Inc. activity, ok to ambulate SCDs DVT prophylaxis Labs in the morning Patient improving, no further hematuria. However platelets are noted to be trending down. Patient needs further evaluation by hematology, this has been discussed with patient and daughter, they verbalized understanding. Discussed with RN Discussed with patient and daughter Discussed with Dr. Crenshaw This patient was seen by myself and Dr. Crenshaw, this note is written on her behalf Problem Qualifiers (1) Hematuria: Qualified Code: R31.0 - Gross hematuria (2) Breast cancer, left: Qualified Code: C50.912 - Malignant neoplasm of left female breast, unspecified estrogen receptor status, unspecified site of breast (3) HTN (hypertension): Qualified Code: I10 - Essential hypertension (4) UTI (urinary tract infection): Qualified Code: N39.0 - Urinary tract infection with hematuria, site unspecified Linda Land Sep 24, 2016 13:15
[2016-09-24] MEDS: MONTELUKAST SODIUM 10 MG TAB PO SCH (21:53)
[2016-09-24] MEDS: MIRTAZAPINE 15 MG TAB PO SCH (21:54)
[2016-09-25] VITALS (11 sets, daily range): BP systolic 117–172; BP diastolic 60–82; PULSE 57–84; RESP 14–18; TEMP 96.4–98.2; O2SAT 90–97
--- NOTE | 2016-09-25 06:06 | MB ---
cc: MOLLY CASTRO DATE OF CONSULTATION September 24, 2016. REASON FOR CONSULTATION Patient with a diagnosis of bladder cancer, hematuria and small-cell neuroendocrine tumor. HISTORY OF PRESENT ILLNESS Ms. Hill is an 86-year-old female who has a diagnosis of bladder cancer. She also has a neuroendocrine malignancy. She follows with Dr. Meza in the Oncology Clinic. Upon review of her records it is unclear whether the neuroendocrine malignancy and the bladder cancer are the same. 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 The patient also has a left breast mass. She is currently undergoing workup for this including an ultrasound-guided biopsy. The patient has a history of lower extremity DVT approximately 10 years ago. According to the patient, the incision this occurred in the setting of while she was hospitalized and undergoing surgery. She has been on Eliquis 2.5 mg daily. The patient presented to the [facility] with hematuria in the ileal conduit. On admission she was found to be thrombocytopenic with a platelet count of 88,000. This has precipitously dropped to 41,000. Upon review of records it appears that her platelet count was 131,000 in April of 2016. The patient has been evaluated by Urology and conservative management is recommended. The patient is currently resting comfortably in her bed. Her daughter is present during this conversation. She has not had any further hematuria. She has not had any nosebleed, gum bleeds, any petechiae, bruising or bright red blood per rectum. REVIEW OF SYSTEMS A comprehensive 14-point review of systems was completed which is negative except as described in the HPI. PAST MEDICAL HISTORY 1. Bladder cancer status post cystectomy and ileal conduit. 1. Left breast cancer recently diagnosed. 2. COPD 3. Anxiety. 4. Arthritis 5. Asthma. 6. CAD. 7. Amaurosis fugax. 8. TIA 9. Hyperlipidemia. 10. Hypertension. 11. Hypothyroidism. 12. History of DVT and PE. PAST SURGICAL HISTORY 1. Appendectomy. 2. AVR and single vessel CABG in 2009. 3. Cholecystectomy. 4. Cystectomy with ileal conduit. 5. EGD with dilatation. 6. Tonsillectomy. 7. Lymph node removal. 8. Bowel resection. MEDICATIONS 1. Prednisone 10 mg p.o. b.i.d. 1. Remeron 45 mg p.o. q.h.s. 2. Singulair 10 mg p.o. q.h.s. 3. Hydralazine 25 mg p.o. q.8 hours. 4. Oramorph 15 mg p.o. b.i.d. 5. DuoNebs 1 ampule q.i.d. 6. Tenormin 50 mg p.o. daily. 7. Symbicort 80 x 4.5 mcg INH. 8. Ceftin 500 mg p.o. q.12 hours. 9. Lisinopril 20 mg p.o. q.12 hours. 10. Paroxetine 30 mg p.o. daily. 11. Guaifenesin 600 mg p.o. b.i.d. 12. Levothyroxine 150 mcg p.o. daily. 13. Tessalon 100 mg p.o. t.i.d. 14. Insulin sliding scale. 15. Tylenol 650 p.o. q.4 hours p.r.n. 16. Zofran 4 mg IV q.6 hours p.r.n. 17. Senokot 17.2 mg p.o. q.12 hours p.r.n. 18. Morphine sulfate 2 mg IV q. 3 hours p.r.n. ALLERGIES AMBIEN. CODEINE. DRAMAMINE. HMG-COA REDUCTASE INHIBITOR. FAMILY HISTORY Reviewed and is noncontributory to this admission. SOCIAL HISTORY She is . She lives with her daughter. She is a nonsmoker, does not drink alcohol. No illicit drug use. PHYSICAL EXAMINATION VITAL SIGNS: Blood pressure of 152/90, pulse is in the 70s, temperature is 97.5, O2 sats are 96% on room air. GENERAL: Chronically ill-appearing elderly female in no apparent distress. HEENT: Pupils are equal, round, reactive to light. EOMI. No oral thrush. No oral lesions. NECK: Supple. No JVD, no bruits. No lymphadenopathy. CHEST: Clear to auscultation bilaterally. CARDIAC: S1, S2. Regular rate and rhythm. ABDOMEN: Soft, non-tender, non-distended. Bowel sounds are present. EXTREMITIES: Without any edema, erythema or cyanosis. SKIN: Without any petechiae, lesion or bruises. Ileal conduit is clear at this time without any clots or blood. LABORATORY DATA WBC 11.4, hemoglobin 13.5, MCV 94.1, platelet count is 41,000. Serum chemistries show sodium of 139, potassium 4.6, chloride 105, CO2 24.7, anion gap is 9, creatinine is 0.79, GFR is 69, glucose is 111, total bilirubin is 1.2, direct bilirubin is 0.3, indirect bilirubin is 0.9, AST is 77, alk phos is 234, total protein is 5.8, albumin is 2.1. IMAGING STUDIES Imaging was reviewed in the EMR. ASSESSMENT AND PLAN This is an 86-year-old female with a diagnosis of breast cancer, history of neuroendocrine tumor, history of bladder cancer status post cystectomy with ileal conduit, history of DVT who is on Eliquis. She presents to the emergency department with hematuria and was found to have thrombocytopenia. 1. Acute on chronic thrombocytopenia. The reason for acute drop in her platelets is less clear however the differential includes underlying infection/ consumption versus DIC or TTP. Her liver functions are elevated but these have been elevated since April of this year. Her total bilirubin is elevated, a small elevation of indirect bilirubin. Direct bilirubin is also elevated. We need to make sure that there was no underlying microangiopathy. Her kidney functions are normal. We need to make sure that this is not pseudo-thrombocytopenia. We will check her peripheral blood smear, check LDH, haptoglobin and fibrinogen levels. Check hepatitis B and C panel. Check HIV panel. I have reviewed her CT imaging and there is no evidence of liver cirrhosis, splenomegaly or portal hypertension to cause thrombocytopenia. No platelet transfusion is indicated at this time unless her platelet count drops below 20,000 or if she starts to have significant hematuria. 2. Hematuria from thr ileal conduit. Her hemoglobin is stable at 13.5. This is likely in the setting of thrombocytopenia. The patient has been evaluated by Urology and conservative management has been recommended. 3. History of bladder cancer/? neuroendocrine tumor. Also with history of cystectomy and ileal conduit. 4. History of breast cancer, currently undergoing workup and further treatment will be given outpatient. Thank you for allowing me to participate in the care of this patient. I will continue to follow this patient along. MD KENDRICK Pedraza/YEFRI /11:20 PM /5:39 AM MTDWilberto
[2016-09-25] MEDS: hydrALAZINE HCL 25 MG TAB PO SCH ×3 (06:27→21:11)
[2016-09-25] MEDS: LEVOTHYROXINE SODIUM 150 MCG TAB PO SCH (06:27)
[2016-09-25] MEDS: INSULIN ASPART SUPPLEMENTAL SCALE SQ SCH ×4 (06:29→21:22)
[2016-09-25 07:58] LABS: INTERNATIONAL NORMALIZED RATIO 1.3 RATIO; PROTHROMBIN TIME - PATIENT 14.1 SEC (9.8-11.6)
[2016-09-25 08:03] LABS: HEMATOCRIT 38.8 % (35.0-46.0); MEAN CELL VOLUME 92.5 FL (80.0-100.0); MEAN CORPUSCULAR HEMOGLOBIN 31.2 PG (27.0-34.0); MEAN CORPUSCULAR HGB CONC 33.8 % (32.0-36.0); PLATELET COUNT 39 TH/MM3 (150-450); RED CELL DISTRIBUTION WIDTH 15.7 % (11.6-17.2)
[2016-09-25 08:19] LABS: INDIRECT BILIRUBIN 0.7 MG/DL (0.0-0.8)
[2016-09-25 08:21] LABS: REVIEW FLAG FINAL
[2016-09-25] MEDS: BUDESONIDE-FORMOTEROL 80/4.5 MCG INHALER INH SCH ×2 (09:00→21:00)
[2016-09-25] MEDS: SODIUM CHLORIDE 0.9% FLUSH 10 ML FLUSH IV FLUSH SCH ×2 (09:00→21:13)
[2016-09-25] MEDS: CEFUROXIME AXETIL 500 MG TAB PO SCH ×2 (09:00→21:11)
--- NOTE | 2016-09-25 09:57 | RADRPT ---
EXAM DATE/TIME: 09/25/2016 07:58 [facility] COMPARISON: No previous studies available for comparison. INDICATIONS : Obstruction and abdominal pain. Gall bladder removed. DOSE: 4.1 mCi Tc99m Mebrofenin IV MEDICAL HISTORY : Congestive hearrt failure. Cardiovascular disease Carcinoma, bladder. Colon cacner. SURGICAL HISTORY : Cholecystectomy. Colon resection. Appendectomy. Bladder removed. ENCOUNTER: Initial ACUITY: 1 day PAIN SCALE: 1/10 LOCATION: Right upper quadrant TECHNIQUE: Following the intravenous administration of radiotracer, dynamic sequential images were performed wit h continuous acquisition. FINDINGS: HEPATIC KINETICS: There is prompt uptake of radiotracer in the liver. No focal defects are seen. There is normal rate of washout from the hepatic parenchyma. BILIARY CLEARANCE: Activity is first seen in the extrahepatic biliary system at 20 minutes. There is normal excretion i nto the small bowel. GALLBLADDER: Is surgically absent BILIARY ENTRIC REFLUX: None observed. CONCLUSION: There is no evidence for common duct obstruction. Andreas Ogden MD FACR on September 25, 2016 at 9:54 Board Certified Radiologist. This report was verified electronically.
[2016-09-25] MEDS: RESP: ALBUTEROL 2.5 MG/IPRATROPIUM 0.5 MG NEB (SCH) NEB ×4 (10:07→19:57)
[2016-09-25] MEDS: MORPHINE SULFATE 15 MG CONTROLLED RELEASE TAB PO SCH ×2 (10:29→21:11)
[2016-09-25] MEDS: PARoxetine HCL 20 MG TAB PO SCH (10:29)
[2016-09-25] MEDS: LISINOPRIL 20 MG TAB PO SCH ×2 (10:29→21:11)
[2016-09-25] MEDS: predniSONE 10 MG TAB PO SCH ×2 (10:30→21:11)
[2016-09-25] MEDS: ATENOLOL 50 MG TAB PO SCH (10:30)
--- NOTE | 2016-09-25 10:59 | HHI.PR ---
Subjective Remarks awake, oriented x 3 eating well coughing, inc. last night allergic to hycodan feels better no more hematuria noted, urine light maria m noted no cp has been walking with daughter no petechiae no hematemesis low platelets noted, d/w pt and daughter pt. anxious to go home, wants to do work up as OP. Explained that heme needs to see before dc and plat. have been trending down. (Linda Land) Objective Objective Results - Vital Signs Date Time Temp Pulse Resp B/P Pulse Ox O2 Delivery O2 Flow Rate FiO2 09/25/16 10:09 97 09/25/16 08:00 97.7 58 18 147/73 96 09/25/16 05:44 93 09/25/16 04:00 97.0 58 18 134/60 93 09/25/16 00:00 97.0 65 17 143/60 94 09/24/16 22:50 16 09/24/16 20:00 97.5 78 17 152/90 96 09/24/16 16:00 96.1 67 20 129/60 94 09/24/16 12:00 96.2 63 20 146/73 97 I/O 09/24/16 09/24/16 09/24/16 09/25/16 09/25/16 09/25/16 07:00 15:00 23:00 07:00 15:00 23:00 Intake Total 600 ml Balance 600 ml Intake Oral 600 ml # Voids 2 3 4 (Linda Land) Result Diagram: 09/25/16 0630 09/24/16 0651 Imaging Last Impressions Abdomen/Pelvis CT 09/23/16 0515 Signed Impressions: Service Date/Time: Friday, September 23, 2016 05:42 - CONCLUSION: 1. Abnormal bowel gas pattern with apparent inflammatory change and enhancement in the right upper quadrant the proximal small bowel and mid ileum. The findings are nonspecific. 2. Post surgical changes status post colonic resection. There is an ostomy in the right lower quadrant. 3. Anasarca. 4. The common bile duct appears prominent and measures up to 1 cm. Mandeep Abbasi MD Chest X-Ray 09/23/16 1572 Signed Impressions: Service Date/Time: Friday, September 23, 2016 03:14 - CONCLUSION: No acute disease. Status post median sternotomy. Mandeep Abbasi MD Other Results Laboratory Tests Test 09/25/16 06:30 White Blood Count 9.0 Red Blood Count 4.20 Hemoglobin 13.1 Hematocrit 38.8 Mean Corpuscular Volume 92.5 Mean Corpuscular Hemoglobin 31.2 Mean Corpuscular Hemoglobin 33.8 Concent Red Cell Distribution Width 15.7 Platelet Count 39 Mean Platelet Volume 9.2 Blood Smear Pathologist Review Haptoglobin LESS THAN 10 Prothrombin Time 14.1 Prothromb Time International 1.3 Ratio Fibrinogen 82 Total Bilirubin 1.0 Direct Bilirubin 0.3 Indirect Bilirubin 0.7 Aspartate Amino Transf 61 (AST/SGOT) Alanine Aminotransferase 73 (ALT/SGPT) Alkaline Phosphatase 244 Lactate Dehydrogenase 412 Total Protein 5.4 Albumin 2.3 Date/Time Procedure Status Source Growth 09/23/16 03:30 Urine Culture - Preliminary Resulted Urine Clean Catch Group D Enterococcus (Linda Land) Physical Exam Physical Exam GENERAL: This is a well-nourished, well-developed patient, in no apparent distress. SKIN: No rashes, ecchymoses or lesions. Cool and dry. HEAD: Atraumatic. Normocephalic. No temporal or scalp tenderness. EYES: Pupils equal round and reactive. Extraocular motions intact. No scleral icterus. No injection or drainage. ENT: Nose without bleeding, purulent drainage or septal hematoma. Throat without erythema, tonsillar hypertrophy or exudate. Uvula midline. Airway patent. NECK: Trachea midline. No JVD or lymphadenopathy. Supple, nontender, no meningeal signs. CARDIOVASCULAR: Regular rate and rhythm without murmurs, gallops, or rubs. RESPIRATORY: coarse ronchi and exp. wheezes. + cough. : ileal conduit with light maria m urine. GASTROINTESTINAL: Abdomen soft, non-tender, nondistended. No hepato-splenomegaly , or palpable masses. No guarding. MUSCULOSKELETAL: Extremities without clubbing, cyanosis, or edema. No joint tenderness, effusion, or edema noted. No calf tenderness. Negative Homans sign bilaterally. NEUROLOGICAL: Awake and alert. Cranial nerves II through XII intact. Motor and sensory grossly within normal limits. Five out of 5 muscle strength in all muscle groups. Normal speech. (Linda Land) A/P Diagnosis: (1) Hematuria (2) Anticoagulated by anticoagulation treatment (3) Thrombocytopenia (4) COPD exacerbation (5) Breast cancer, left (6) Hx pulmonary embolism (7) Hx of deep venous thrombosis (8) COPD with exacerbation (9) HTN (hypertension) (10) Bronchitis (11) Hx of bladder cancer (12) UTI (urinary tract infection) (13) Hyperglycemia Assessment and Plan 86-year-old elderly white female recently presents to ED with hematuria x 3 episodes. Hx of bladder cancer, had cystectomy. Pt. takes Eliquis. Was noted with thrombocytopenia, platelets trending down. Hematuria Poss UTI, culture pending -Urology input appreciated, no further recommendations. Recommends to correct coagulopathy. Pt can f/u annually -HH stable 13.5/41.8, no active bleeding. Hematuria resolved -platelets dropping -Continue with PO abx for UTI, follow cultures Thrombocytopenia-etiology unclear, meds?, recent infection. -Platelets noted trending down, 41 today -Hematology consultation -Monitor for any bleeding. -No petechia noted, H&H stable. Discussed with patient and daughter at length, they are agreeable with remaining in the hospital for further workup. Recent admission for COPD exacerbation, with bronchitis-improving slowly. -Continue with Ceftin -Continue PO steroids, and wean off slowly -Continue DuoNeb's Continue with Tessalon when necessary Mucinex 600 mg by mouth twice a day -Add Robitussin when necessary History DVT and PE Continue to hold Eliquis until further evaluation for thrombocytopenia. Hypertension, uncontrolled Continue home medications -Add PRN BP meds Left breast cancer, recently diagnosed. Patient due to have lumpectomy with Dr. Schroeder in September. She is also to have radiation Prior history of bladder cancer, neuroendocrine malignancy Patient to follow-up with radiation oncology as outpatient Recent EGD with dilatation, their concern the patient continues to cough and may be choking on food Swallow evaluation done, recommendations noted. -No signs and symptoms of aspiration noted Hyperglycemia, likely secondary to steroids -Continue with low-dose insulin for sliding scale, blood glucose elevated secondary to steroids. Inc. activity, ok to ambulate SCDs DVT prophylaxis Labs in the morning Patient improving, no further hematuria. However platelets are noted to be trending down. Patient needs further evaluation by hematology, this has been discussed with patient and daughter, they verbalized understanding. Discussed with RN Discussed with patient and daughter Discussed with Dr. Crenshaw This patient was seen by myself and Dr. Crenshaw, this note is written on her behalf (Linda Land) Assessment and Plan Seen and examined as above Labs reviewed Discussed with patient Plan of care discussed with [employer] help (Ekaterina Crenshaw MD) Problem Qualifiers (1) Hematuria: Qualified Code: R31.0 - Gross hematuria (2) Breast cancer, left: Qualified Code: C50.912 - Malignant neoplasm of left female breast, unspecified estrogen receptor status, unspecified site of breast (3) HTN (hypertension): Qualified Code: I10 - Essential hypertension (4) UTI (urinary tract infection): Qualified Code: N39.0 - Urinary tract infection with hematuria, site unspecified Linda Land Sep 25, 2016 10:59 Ekaterina Crenshaw MD Sep 25, 2016 14:58
--- NOTE | 2016-09-25 12:25 | RADRPT ---
EXAM DATE/TIME: 09/25/2016 10:17 [facility] COMPARISON: CHEST SINGLE AP, September 23, 2016, 3:14. INDICATIONS : Short of breath and evaluate for bronchitis MEDICAL HISTORY : Carcinoma, colon. Carcinoma, bladder. Congestive hearrt failure. Cardiovascular disease SURGICAL HISTORY : Cholecystectomy. Colon resection. Appendectomy. Bladder removed. ENCOUNTER: Subsequent ACUITY: 2 days PAIN SCORE: 0/10 LOCATION: Bilateral chest FINDINGS: External wires from previous bypass and valve replacement is evident. The heart is minimally enlarge d. The pulmonary vascularity is normal. The lungs are clear. Scoliosis is noted. CONCLUSION: Negative for acute disease. I don't see significant failure. Andreas Ogden MD FACR on September 25, 2016 at 12:23 Board Certified Radiologist. This report was verified electronically.
--- NOTE | 2016-09-25 13:11 | PD.ONC.PN ---
Subjective Subjective Remarks Afebrile overnight Pt still with pink tinged urine in ileal conduit bag No other obvious bleeding States overall she feels much better Objective Data Date Time Temp Pulse Resp B/P Pulse Ox O2 Delivery O2 Flow Rate FiO2 09/25/16 10:09 97 09/25/16 08:00 97.7 58 18 147/73 96 09/25/16 05:44 93 09/25/16 04:00 97.0 58 18 134/60 93 09/25/16 00:00 97.0 65 17 143/60 94 09/24/16 22:50 16 09/24/16 20:00 97.5 78 17 152/90 96 09/24/16 16:00 96.1 67 20 129/60 94 Result Diagram: 09/25/16 0630 09/24/16 0651 Laboratory Results Laboratory Tests Test 09/25/16 09/25/16 09/25/16 06:30 11:11 11:15 White Blood Count 9.0 TH/MM3 Red Blood Count 4.20 MIL/MM3 Hemoglobin 13.1 GM/DL Hematocrit 38.8 % Mean Corpuscular Volume 92.5 FL Mean Corpuscular Hemoglobin 31.2 PG Mean Corpuscular Hemoglobin 33.8 % Concent Red Cell Distribution Width 15.7 % Platelet Count 39 TH/MM3 Mean Platelet Volume 9.2 FL Blood Smear Pathologist Review Haptoglobin LESS THAN 10 MG/DL Prothrombin Time 14.1 SEC Prothromb Time International 1.3 RATIO Ratio Fibrinogen 82 mg/dL Total Bilirubin 1.0 MG/DL Direct Bilirubin 0.3 MG/DL Indirect Bilirubin 0.7 MG/DL Aspartate Amino Transf 61 U/L (AST/SGOT) Alanine Aminotransferase 73 U/L (ALT/SGPT) Alkaline Phosphatase 244 U/L Lactate Dehydrogenase 412 U/L Total Protein 5.4 GM/DL Albumin 2.3 GM/DL Blood Type O NEGATIVE O NEGATIVE Blood Bank Comment Culture Results Microbiology Date/Time Procedure Status Source Growth 09/23/16 03:30 Urine Culture - Preliminary Resulted Urine Clean Catch Group D Enterococcus Imaging Studies Last 24 hours Impressions Hepatobiliary Scan Nuclear Medicine 09/25/16 0000 Signed Impressions: Service Date/Time: Sunday, September 25, 2016 07:58 - CONCLUSION: There is no evidence for common duct obstruction. Andreas Ogden MD FACR Chest X-Ray 09/25/16 0000 Signed Impressions: Service Date/Time: Sunday, September 25, 2016 10:17 - CONCLUSION: Negative for acute disease. I don't see significant failure. Andreas Ogden MD FACR Administered Medications Medications (Trade) Dose Ordered Sig/Jasmina Route PRN Reason Start Time Stop Time Status Last Admin Dose Admin Sodium Chloride (NS Flush) 2 ml BID IV FLUSH 09/23/16 09:00 09/25/16 09:00 Morphine Sulfate (Morphine Inj) 1 mg Q3H PRN IV PUSH pain 3-5 09/23/16 06:15 09/24/16 10:01 Atenolol (Tenormin) 50 mg DAILY PO 09/23/16 09:00 09/25/16 10:30 Cefuroxime Axetil (Ceftin) 500 mg Q12HR PO 09/23/16 09:00 09/25/16 09:00 Hydralazine HCl (Apresoline) 25 mg Q8HR PO 09/23/16 14:00 09/25/16 06:27 Levothyroxine Sodium (Synthroid) 150 mcg DAILY@06 PO 09/23/16 07:39 09/25/16 06:27 Lisinopril (Prinivil) 20 mg Q12HR PO 09/23/16 09:00 09/25/16 10:29 Mirtazapine (Remeron) 45 mg HS PO 09/23/16 21:00 09/24/16 21:54 Montelukast Sodium (Singulair) 10 mg HS PO 09/23/16 21:00 09/24/16 21:53 Paroxetine HCl (Paxil) 30 mg DAILY PO 09/23/16 09:00 09/25/16 10:29 Morphine Sulfate (Oramorph Sr) 15 mg BID PO 09/23/16 10:00 09/25/16 10:29 Prednisone (Deltasone) 10 mg BID PO 09/24/16 21:00 09/25/16 10:30 Objective Remarks GENERAL: Elderly female, resting in bed with daughter at bedside. SKIN: Warm and dry. Ecchymoses to R hand. No oozing from lines. HEAD: Normocephalic. EYES: No injection or drainage. NECK: Supple, trachea midline. CARDIOVASCULAR: +S1/S2. Regular rhythm. RESPIRATORY: Scattered rhonchi. Breathing unlabored. GASTROINTESTINAL: Abdomen soft, non-tender, nondistended. EXTREMITIES: No cyanosis, or edema. MUSCULOSKELETAL: Generalized weakness NEUROLOGICAL: No obvious focal deficit. Awake, alert, and oriented x3. Assessment/Plan Problem List: (1) Thrombocytopenia Status: Acute Plan: -- Concern for microangiopathy -- BIRD-13, peripheral smear and direct Mee pending -- Differential includes underlying infection versus consumption versus DIC versus TTP Assessment 86-year-old female with history of bladder cancer admitted with hematuria and thrombocytopenia Plan 1. Await results of workup 2. Continue steroids at present. 3. Monitor CBC 4. Plan to transfuse platelets for any further bleeding or a platelet count of less than 20,000. Attending Statement The exam, history, and the medical decision-making described in the above note were completed with the assistance of the mid-level provider. I reviewed and agree with the findings presented. I attest that I had a [id number] encounter with the patient on the same day, and personally performed and documented my assessment and findings in the medical record. 1. Acute Thrombocytopenia - LDH elevated, Haptoglobin low points toward hemolysis but Hb has remained stable and normal. Peripheral smear does not show schistocytes. Fibrinogen is also low which could be due to DIC. - She does have transaminitis ? liver disease--these have been elevated at least since April,. Hep panel is negative. Liver disease can cause low Haptoglobin and low Fibrinogen levels. From review of records, It appears that a formal Liver w/u has not been done. I would recommend GI consult. - Since we can not explain her acute thrombocytopenia at this time and TTP is a possibility, I would give her FFP tonight. We will check hemolysis labs in AM and If Haptoglobin is still low we will initiate plasma exchange. ADAMTS-13 testing has been ordered. - Agree with steroids for now 2. Elevated T. bili - indirect bili is normal - Hb stable - There does not appear to be brisk hemolysis as Hb is stable - Check Direct Mee test 3. Elevated Alk phosph - check GGT to better delineate this whether there is a biliary etiology Fany Mendieta Sep 25, 2016 13:11 Dominic Hurst MD Sep 25, 2016 23:49
[2016-09-25] MEDS: guaiFENesin E.R. 600 MG TAB PO SCH (21:10)
[2016-09-25] MEDS: MIRTAZAPINE 15 MG TAB PO SCH (21:11)
[2016-09-25] MEDS: MONTELUKAST SODIUM 10 MG TAB PO SCH (21:13)
[2016-09-26] VITALS (12 sets, daily range): BP systolic 120–185; BP diastolic 52–80; PULSE 56–81; RESP 17–20; TEMP 96.1–97.8; O2SAT 92–100
[2016-09-26] MEDS: MORPHINE SULFATE 4 MG/ML INJ IV PUSH PRN ×2 (02:16→15:11)
[2016-09-26] MEDS: hydrALAZINE HCL 25 MG TAB PO SCH ×3 (05:52→23:05)
[2016-09-26] MEDS: LEVOTHYROXINE SODIUM 150 MCG TAB PO SCH (05:52)
[2016-09-26] MEDS: INSULIN ASPART SUPPLEMENTAL SCALE SQ SCH ×4 (05:55→21:13)
[2016-09-26] MEDS: RESP: ALBUTEROL 2.5 MG/IPRATROPIUM 0.5 MG NEB (SCH) NEB ×4 (07:47→19:49)
--- NOTE | 2016-09-26 08:20 | PD.CONS ---
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 She was evaluated by and they have recommended conservative management with correction of underlying coagulopathy. Hematology is following for the acute thrombocytopenia with elevated LDH and low haptoglobin, low fibrinogen. It is unclear at this time, if this is related to underlying liver disease vs hemolysis, TTP. She is being treated with steroids, FFP. The plan is to check the hemolysis labs in AM and if haptoglobin is still low, to consider initiating plasma exchange. GI has been consulted for elevated LFTs. Looking at the EMR, she has had elevated LFTs since April of 2016 (first LFT done at this facility). Hepatitis panel negative. Abdomen/Pelvis CT (09/23/16)---> 1. Abnormal bowel gas pattern with apparent inflammatory change and enhancement in the right upper quadrant the proximal small bowel and mid ileum. The findings are nonspecific. 2. Post surgical changes status post colonic resection. There is an ostomy in the right lower quadrant. 3. Anasarca. 4. The common bile duct appears prominent and measures up to 1 cm. HIDA (09/25/16)----> There is no evidence for common duct obstruction. GI has been consulted for further evaluation. She reports that her LFTs have fluctuated for quite some time, but she is not aware of any underlying liver disease such as liver cirrhosis. She has seen a hospice physician in the past when she had her colon cancer, but not recently. She denies any family history of liver disease and does not drink alcohol. She occasionally has nausea, but denies any vomiting. She does have intermittent abdominal discomfort, although she states this is more soreness from coughing. Her appetite is good and she has not lost any weight. (Lisbet Mace) PFSH Past Medical History COPD Anxiety Arthritis Asthma CAD TIA Hyperlipidemia HTN Hypothyroid Bladder cancer, s/p cystectomy Colon cancer, s/p resection Recurrent neuroendocrine carcinoma Left breast cancer, newly diagnosed due to have lumpectomy with Dr. Schroeder October 05, Plan is to start radiation with Dr. Morris Recurrent DVT, PE Past Surgical History Appendectomy AVR and single-vessel CABG in 2010 Cholecystectomy Cystectomy with ileal conduit EGD with dilatation Tonsillectomy Lymph node removal Bowel resection (Lisbet Mace) Coded Allergies: Ambien (Verified Allergy, Severe, Confusion, 09/15/16) Codeine (Verified Allergy, Severe, nausea , 09/15/16) Dramamine (Verified Allergy, Severe, Confusion, 09/15/16) HMG-CoA Reductase Inhibitors (Verified Allergy, Severe, 09/15/16) Medications Allergies Coded Allergies Type Severity Reaction Last Updated Verified Ambien Allergy Severe Confusion 09/15/16 Yes Codeine Allergy Severe nausea 09/15/16 Yes Dramamine Allergy Severe Confusion 09/15/16 Yes HMG-CoA Reductase Inhibitors Allergy Severe 09/15/16 Yes Active Scripts Medications Dose Route/Sig Days Date Category Dose Instructions Prednisone 10 Mg Tab 10 Mg PO TID 8 09/22/16 Rx Take 1 tab po tid for 2 days, then 1 tab po bid for 3 days, then 1 tab po daily for 3 days, then discontinue [guaiFENesin ER] 600 MG Tabcr 600 Mg PO BID 10 09/22/16 Rx Lisinopril 20 Mg Tab 20 Mg PO Q12HR 30 09/22/16 Rx Hydralazine HCl 25 Mg Tablet 25 Mg PO Q8HR 30 09/22/16 Rx Cefuroxime (Cefuroxime Axetil) 500 Mg Tab 500 Mg PO Q12HR 7 09/22/16 Rx Symbicort Inh (Budesonide/Formoterol Fumarate) 80-4.5 Mcg/Act Aero 2 Puff INH Q12HR 30 09/22/16 Rx Paroxetine (Paroxetine HCl) 30 Mg Tab 30 Mg PO DAILY 09/16/16 Reported Benzonatate 100 Mg Cap 100 Mg PO TID PRN 09/15/16 Reported Morphine ER (Morphine Sulfate) 15 Mg Tab 15 Mg PO Q6HR 09/15/16 Reported Vitamin D3 (Cholecalciferol) 1,000 Unit Tab 2,000 Units PO DAILY 07/09/16 Reported Pravastatin 10 Mg Tab 10 Mg PO HS 05/20/16 Reported Eliquis (Apixaban) 2.5 Mg Tab 2.5 Mg PO DAILY 05/20/16 Reported Singulair (Montelukast Sodium) 10 Mg Tab 10 Mg PO HS 05/20/16 Reported Levothyroxine (Levothyroxine Sodium) 150 Mcg Tab 150 Mcg PO DAILY 05/20/16 Reported Mirtazapine 45 Mg Tab 45 Mg PO HS 05/20/16 Reported Atenolol 50 Mg Tab 50 Mg PO DAILY 05/20/16 Reported Family History Noncontributory Social History Denies the use of tobacco, etoh, or illicit drug use. (Lisbet Mace ) Review of Systems Constitutional: COMPLAINS OF: Fatigue, DENIES: Fever, Chills Respiratory: COMPLAINS OF: Cough, Shortness of breath Cardiovascular: DENIES: Chest pain Gastrointestinal: COMPLAINS OF: Abdominal pain, Nausea, DENIES: Black stools, Bloody stools, Vomiting, Anorexia, Swelling of Abdomen Integumentary: DENIES: Abnormal pigmentation Hematologic/lymphatic: COMPLAINS OF: Bruising Neurologic: DENIES: Headache Psychiatric: DENIES: Confusion (Lisbet Maec) GI Exam Vitals I&O Vital Signs Date Time Temp Pulse Resp B/P Pulse Ox O2 Delivery O2 Flow Rate FiO2 09/26/16 07:48 98 21 09/26/16 04:00 96.5 56 17 167/70 96 09/26/16 02:46 60 173/74 09/26/16 02:05 183/80 09/26/16 01:50 96.6 62 18 182/74 94 09/26/16 01:29 96.3 57 17 138/74 96 09/26/16 00:00 96.1 69 17 129/59 92 09/25/16 20:00 96.4 84 18 172/70 96 09/25/16 17:00 97.9 57 14 117/65 96 09/25/16 16:31 95 21 09/25/16 15:15 98.2 71 16 140/82 94 09/25/16 14:43 98.1 58 17 152/66 09/25/16 12:00 98.2 72 14 149/64 90 09/25/16 10:09 97 I/O 09/25/16 09/25/16 09/25/16 09/26/16 09/26/16 09/26/16 07:00 15:00 23:00 07:00 15:00 23:00 Intake Total 454 ml 480 ml 60 ml Output Total 225 ml 1000 ml Balance 229 ml 480 ml -940 ml Intake Oral 454 ml FFP 60 ml Cryoprecipitate 480 ml Output Urine Total 225 ml 1000 ml Stool Total 0 ml # Voids 4 Imaging Last Impressions Hepatobiliary Scan Nuclear Medicine 09/25/16 0000 Signed Impressions: Service Date/Time: Sunday, September 25, 2016 07:58 - CONCLUSION: There is no evidence for common duct obstruction. Andreas Ogden MD FACR Chest X-Ray 09/25/16 0000 Signed Impressions: Service Date/Time: Sunday, September 25, 2016 10:17 - CONCLUSION: Negative for acute disease. I don't see significant failure. Andreas Ogden MD FACR Abdomen/Pelvis CT 09/23/16 0515 Signed Impressions: Service Date/Time: Friday, September 23, 2016 05:42 - CONCLUSION: 1. Abnormal bowel gas pattern with apparent inflammatory change and enhancement in the right upper quadrant the proximal small bowel and mid ileum. The findings are nonspecific. 2. Post surgical changes status post colonic resection. There is an ostomy in the right lower quadrant. 3. Anasarca. 4. The common bile duct appears prominent and measures up to 1 cm. Mandeep Abbasi MD Laboratory Test 09/25/16 09/25/16 09/25/16 09/25/16 11:11 11:15 23:34 23:59 Blood Type O NEGATIVE O NEGATIVE Blood Bank Comment Direct Antiglobulin Test NEGATIVE (Mee) Test 09/26/16 03:20 Blood Type O NEGATIVE Pre-Transfusion Antibody Screen Pre-Transfusion ELIZA (Direct NEGATIVE Mee) Post-Transfusion Antibody Screen Post-Transfusion ELIZA (Direct NEGATIVE Mee Date/Time Procedure Status Source Growth 09/23/16 03:30 Urine Culture - Final Complete Urine Clean Catch Enterococcus Faecium Physical Examination HEENT: Normocephalic; atraumatic; no jaundice. CHEST: CTA CARDIAC: RRR ABDOMEN: Soft, nondistended, nontender; no hepatosplenomegaly; bowel sounds are present in all four quadrants. Ileal conduit bag EXTREMITIES: generalized edema. SKIN: Ecchymosis HAND MOLDER: No focal deficits; alert and oriented times three. (Lisbet Mace) Assessment and Plan Plan ASSESSMENT: - Elevated LFTs. She reports long history of LFTs "fluctuating" but denies any known underlying liver disease such as cirrhosis. No ETOH. No family hx of liver disease. Hepatitis panel negative. Abdomen/Pelvis CT (09/23/16)---> 1. Abnormal bowel gas pattern with apparent inflammatory change and enhancement in the right upper quadrant the proximal small bowel and mid ileum. The findings are nonspecific. 2. Post surgical changes status post colonic resection. There is an ostomy in the right lower quadrant. 3. Anasarca. 4. The common bile duct appears prominent and measures up to 1 cm. HIDA (09/25/16)----> There is no evidence for common duct obstruction. Occasional nausea, mild abdominal discomfort- related to coughing. Plt 39, INR 14.1, Fibrinogen 82, T. Bili 1.0, AST 61, ALT 73, Alk Phosph 244. Will get liver workup. - Acute thrombocytopenia/coagulopathy, unclear etiology. Hematology following for the acute thrombocytopenia with elevated LDH and low haptoglobin, low fibrinogen. It is unclear at this time, if this is related to underlying liver disease vs hemolysis, TTP. She is being treated with steroids, FFP. The plan is to check the hemolysis labs in AM and if haptoglobin is still low, to consider initiating plasma exchange. GI has been consulted for elevated LFTs. Today's labs pending. - Hematuria. S/P evaluation, recommended conservative management with correction of underlying coagulopathy. - Hx recurrent DVT/PE. Eliquis - Hx Bladder cancer, S/P radical cystectomy and ileal conduit urinary diversion in without evidence of recurrent disease - Hx Colon cancer, s/p resection without chemotherapy or radiation - COPD, Bronchitis, HTN, UTI per attending. PLAN: - ELIZA - Await this am's labs - AFP - Iron Saturation - Ferritin - PAKO, ASMA, AMA - Ceruloplasmin, Alpha 1 Antitrypsin - Monitor LFTs - Supportive care - Further recommendations to follow based on results of above - Pt seen and examined by Dr. 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
[2016-09-26] MEDS: SODIUM CHLOR 0.9% 1000 ML INJ 1,000 ML IV SCH ×2 (09:00→19:15)
[2016-09-26] MEDS: LISINOPRIL 20 MG TAB PO SCH ×2 (09:34→20:59)
[2016-09-26] MEDS: guaiFENesin E.R. 600 MG TAB PO SCH ×2 (09:34→20:59)
[2016-09-26] MEDS: ATENOLOL 50 MG TAB PO SCH (09:34)
[2016-09-26] MEDS: predniSONE 10 MG TAB PO SCH (09:35)
[2016-09-26] MEDS: PARoxetine HCL 20 MG TAB PO SCH (09:36)
[2016-09-26] MEDS: CEFUROXIME AXETIL 500 MG TAB PO SCH ×2 (09:36→20:59)
[2016-09-26] MEDS: MORPHINE SULFATE 15 MG CONTROLLED RELEASE TAB PO SCH ×2 (09:37→20:58)
[2016-09-26] MEDS: SODIUM CHLORIDE 0.9% FLUSH 10 ML FLUSH IV FLUSH SCH ×2 (09:50→21:04)
--- NOTE | 2016-09-26 10:56 | HHI.PR ---
Subjective Remarks slept poorly had FFP last night and had "reaction" apparently BP went up to 180s, FFP stopped no fever, no flushing, no rashes no hematuria cough better no cp no sob somewhat anxious about her hospitalization, understands she has to stay daughter not at [facility] Objective Objective Results - Vital Signs Date Time Temp Pulse Resp B/P Pulse Ox O2 Delivery O2 Flow Rate FiO2 09/26/16 08:00 96.9 79 20 133/66 97 09/26/16 07:48 98 21 09/26/16 04:00 96.5 56 17 167/70 96 09/26/16 02:46 60 173/74 09/26/16 02:05 183/80 09/26/16 01:50 96.6 62 18 182/74 94 09/26/16 01:29 96.3 57 17 138/74 96 09/26/16 00:00 96.1 69 17 129/59 92 09/25/16 20:00 96.4 84 18 172/70 96 09/25/16 17:00 97.9 57 14 117/65 96 09/25/16 16:31 95 21 09/25/16 15:15 98.2 71 16 140/82 94 09/25/16 14:43 98.1 58 17 152/66 09/25/16 12:00 98.2 72 14 149/64 90 I/O 09/25/16 09/25/16 09/25/16 09/26/16 09/26/16 09/26/16 07:00 15:00 23:00 07:00 15:00 23:00 Intake Total 454 ml 480 ml 60 ml Output Total 225 ml 1000 ml Balance 229 ml 480 ml -940 ml Intake Oral 454 ml FFP 60 ml Cryoprecipitate 480 ml Output Urine Total 225 ml 1000 ml Stool Total 0 ml # Voids 4 Result Diagram: 09/25/16 0630 09/24/16 0651 Imaging Last Impressions Abdomen/Pelvis CT 09/23/16 0515 Signed Impressions: Service Date/Time: Friday, September 23, 2016 05:42 - CONCLUSION: 1. Abnormal bowel gas pattern with apparent inflammatory change and enhancement in the right upper quadrant the proximal small bowel and mid ileum. The findings are nonspecific. 2. Post surgical changes status post colonic resection. There is an ostomy in the right lower quadrant. 3. Anasarca. 4. The common bile duct appears prominent and measures up to 1 cm. Mandeep Abbasi MD Chest X-Ray 09/23/16 0315 Signed Impressions: Service Date/Time: Friday, September 23, 2016 03:14 - CONCLUSION: No acute disease. Status post median sternotomy. Mandeep Abbasi MD Other Results Laboratory Tests Test 09/25/16 09/25/16 09/25/16 09/25/16 11:11 11:15 23:34 23:59 Blood Type O NEGATIVE O NEGATIVE Blood Bank Comment Direct Antiglobulin Test NEGATIVE (Mee) Test 09/26/16 03:20 Blood Type O NEGATIVE Pre-Transfusion Antibody Screen Pre-Transfusion ELIZA (Direct NEGATIVE Mee) Post-Transfusion Antibody Screen Post-Transfusion ELIZA (Direct NEGATIVE Mee Transfusion Reaction Path Interp Date/Time Procedure Status Source Growth 09/23/16 03:30 Urine Culture - Final Complete Urine Clean Catch Enterococcus Faecium ROS General: No: Fatigue, Weakness HEENT: No: Sore Throat, Dysphagia Cardiac: No: Chest Pain, Edema, Palpitations Pulmonary: Cough, Wheezing, No: SOB GI: No: Abdominal Pain, BM, Diarrhea, N/V /ROSS FURNACE OPERATOR: No: Dysuria, Urgency Neuro/MS: Other (back pain ), No: Lightheaded, Confusion Psych: No: Anxiety, Depression Skin: No: Itching, Rash Physical Exam Physical Exam GENERAL: This is a well-nourished, well-developed patient, in no apparent distress. SKIN: No rashes, ecchymoses or lesions. Cool and dry. HEAD: Atraumatic. Normocephalic. No temporal or scalp tenderness. EYES: Pupils equal round and reactive. Extraocular motions intact. No scleral icterus. No injection or drainage. ENT: Nose without bleeding, purulent drainage or septal hematoma. Throat without erythema, tonsillar hypertrophy or exudate. Uvula midline. Airway patent. NECK: Trachea midline. No JVD or lymphadenopathy. Supple, nontender, no meningeal signs. CARDIOVASCULAR: Regular rate and rhythm without murmurs, gallops, or rubs. RESPIRATORY: coarse ronchi and exp. wheezes. + cough. : ileal conduit with light maria m urine. GASTROINTESTINAL: Abdomen soft, non-tender, nondistended. No hepato-splenomegaly , or palpable masses. No guarding. MUSCULOSKELETAL: Extremities without clubbing, cyanosis, or edema. No joint tenderness, effusion, or edema noted. No calf tenderness. Negative Homans sign bilaterally. NEUROLOGICAL: Awake and alert. Cranial nerves II through XII intact. Motor and sensory grossly within normal limits. Five out of 5 muscle strength in all muscle groups. Normal speech. Urinary Catheter: No Vascular Central Line Catheter: No A/P Diagnosis: (1) Hematuria (2) Anticoagulated by anticoagulation treatment (3) Thrombocytopenia (4) COPD exacerbation (5) Breast cancer, left (6) Hx pulmonary embolism (7) Hx of deep venous thrombosis (8) COPD with exacerbation (9) HTN (hypertension) (10) Bronchitis (11) Hx of bladder cancer (12) UTI (urinary tract infection) (13) Hyperglycemia Assessment and Plan 86-year-old elderly white female recently presents to ED with hematuria x 3 episodes. Hx of bladder cancer, had cystectomy. Pt. takes Eliquis. Was noted with thrombocytopenia, platelets trending down. Hematuria -Urology input appreciated, no further recommendations. Recommends to correct coagulopathy. Pt can f/u annually -HH stable, hematuria resolving UTI -Ent. faecium -may need to repeat for better sampling, it was pulled from bag not from stoma. Thrombocytopenia-etiology unclear, meds?, recent infection. -Platelets noted trending down, 41 today -appreciate hematology input-etiology unclear at this time. Hes elevated LDH and low haptoglobin, low fibrinogen. ? underlying liver disease (has had elevated LFTs) vs hemolysis, TTP. FFP ordered last night, however, pt. had "reaction". BP went up, therefore it was stopped. Plan is for possible PPE if haptoglobin is low Recommended GI input for elevated LFTs Elevated LFTs Elevated T. bili Elevated Alk phosph -GI consulted, input appreciate. Liver work up in progress. -HIDA scan done, no acute findings Recent admission for COPD exacerbation, with bronchitis-improving slowly. -Continue with Ceftin -Continue PO steroids, and wean off slowly -Continue DuoNeb's Continue with Tessalon when necessary Mucinex 600 mg by mouth twice a day -Repeat CXR okay History DVT and PE Continue to hold Eliquis until further evaluation for thrombocytopenia. Hypertension, uncontrolled Continue home medications -continue PRN BP meds Left breast cancer, recently diagnosed. Patient due to have lumpectomy with Dr. Schroeder in September. She is also to have radiation Prior history of bladder cancer, neuroendocrine malignancy Patient to follow-up with radiation oncology as outpatient Recent EGD with dilatation, their concern the patient continues to cough and may be choking on food Swallow evaluation done, recommendations noted. -No signs and symptoms of aspiration noted Hyperglycemia, likely secondary to steroids -Continue with low-dose insulin for sliding scale, blood glucose elevated secondary to steroids. Inc. activity, ok to ambulate SCDs DVT prophylaxis CBC pending Labs in am condition guarded Discussed with RN Discussed with patient Discussed with Dr. Crenshaw This patient was seen by myself and Dr. Crenshaw, this note is written on her behalf Problem Qualifiers (1) Hematuria: Qualified Code: R31.0 - Gross hematuria (2) Breast cancer, left: Qualified Code: C50.912 - Malignant neoplasm of left female breast, unspecified estrogen receptor status, unspecified site of breast (3) HTN (hypertension): Qualified Code: I10 - Essential hypertension (4) UTI (urinary tract infection): Qualified Code: N39.0 - Urinary tract infection with hematuria, site unspecified Linda Land Sep 26, 2016 10:56
[2016-09-26 11:31] LABS: AUTOMATED NEUTROPHIL # 7.3 TH/MM3 (1.8-7.7); BASOPHIL % 0.2 % (0.0-2.0); EOSINOPHIL # 0.2 TH/MM3 (0-0.4); EOSINOPHIL % 1.8 % (0.0-4.0); LYMPH % 15.4 % (9.0-44.0); LYMPHOCYTE # 1.5 TH/MM3 (1.0-4.8); MEAN CELL VOLUME 92.8 FL (80.0-100.0); MEAN CORPUSCULAR HEMOGLOBIN 31.2 PG (27.0-34.0); MEAN CORPUSCULAR HGB CONC 33.6 % (32.0-36.0); MONO % 9.5 % (0.0-8.0); NEUT % 73.1 % (16.0-70.0); PLATELET COUNT 45 TH/MM3 (150-450); RED BLOOD COUNT 3.98 MIL/MM3 (4.00-5.30); RED CELL DISTRIBUTION WIDTH 15.6 % (11.6-17.2)
[2016-09-26 11:36] LABS: HEMO FLAGS AUTO DIFF
[2016-09-26 11:37] LABS: INTERNATIONAL NORMALIZED RATIO 1.1 RATIO; PROTHROMBIN TIME - PATIENT 11.7 SEC (9.8-11.6)
[2016-09-26 11:49] LABS: GAMMA GT 573 U/L (5-55); LDH SERUM 430 U/L (84-246)
--- NOTE | 2016-09-26 11:55 | PD.ONC.PN ---
Subjective Subjective Remarks Afebrile overnight Patient resting in bed She states that her right hand swelling and pain is slightly improved She is asking about her blood counts today Objective Data Date Time Temp Pulse Resp B/P Pulse Ox O2 Delivery O2 Flow Rate FiO2 09/26/16 08:00 96.9 79 20 133/66 97 09/26/16 07:48 98 21 09/26/16 04:00 96.5 56 17 167/70 96 09/26/16 02:46 60 173/74 09/26/16 02:05 183/80 09/26/16 01:50 96.6 62 18 182/74 94 09/26/16 01:29 96.3 57 17 138/74 96 09/26/16 00:00 96.1 69 17 129/59 92 09/25/16 20:00 96.4 84 18 172/70 96 09/25/16 17:00 97.9 57 14 117/65 96 09/25/16 16:31 95 21 09/25/16 15:15 98.2 71 16 140/82 94 09/25/16 14:43 98.1 58 17 152/66 09/25/16 12:00 98.2 72 14 149/64 90 Result Diagram: 09/26/16 1106 09/24/16 0651 Laboratory Results Laboratory Tests Test 09/25/16 09/25/16 09/26/16 09/26/16 23:34 23:59 03:20 11:06 Direct Antiglobulin Test NEGATIVE (Fracisco) Blood Bank Comment Blood Type O NEGATIVE Pre-Transfusion Antibody Screen Pre-Transfusion ELIZA (Direct NEGATIVE Fracisco) Post-Transfusion Antibody Screen Post-Transfusion ELIZA (Direct NEGATIVE Fracisco Transfusion Reaction Path Interp White Blood Count 10.0 TH/MM3 Red Blood Count 3.98 MIL/MM3 Hemoglobin 12.4 GM/DL Hematocrit 37.0 % Mean Corpuscular Volume 92.8 FL Mean Corpuscular Hemoglobin 31.2 PG Mean Corpuscular Hemoglobin 33.6 % Concent Red Cell Distribution Width 15.6 % Platelet Count 45 TH/MM3 Mean Platelet Volume 8.8 FL Neutrophils (%) (Auto) 73.1 % Lymphocytes (%) (Auto) 15.4 % Monocytes (%) (Auto) 9.5 % Eosinophils (%) (Auto) 1.8 % Basophils (%) (Auto) 0.2 % Neutrophils # (Auto) 7.3 TH/MM3 Lymphocytes # (Auto) 1.5 TH/MM3 Monocytes # (Auto) 0.9 TH/MM3 Eosinophils # (Auto) 0.2 TH/MM3 Basophils # (Auto) 0.0 TH/MM3 CBC Comment AUTO DIFF Prothrombin Time 11.7 SEC Prothromb Time International 1.1 RATIO Ratio Fibrinogen 236 mg/dL Administered Medications Medications (Trade) Dose Ordered Sig/Jasmina Route PRN Reason Start Time Stop Time Status Last Admin Dose Admin Sodium Chloride (NS Flush) 2 ml BID IV FLUSH 09/23/16 09:00 09/26/16 09:50 Morphine Sulfate (Morphine Inj) 1 mg Q3H PRN IV PUSH pain 3-5 09/23/16 06:15 09/26/16 02:16 Atenolol (Tenormin) 50 mg DAILY PO 09/23/16 09:00 09/26/16 09:34 Cefuroxime Axetil (Ceftin) 500 mg Q12HR PO 09/23/16 09:00 09/26/16 09:36 Hydralazine HCl (Apresoline) 25 mg Q8HR PO 09/23/16 14:00 09/26/16 05:52 Levothyroxine Sodium (Synthroid) 150 mcg DAILY@06 PO 09/23/16 07:39 09/26/16 05:52 Lisinopril (Prinivil) 20 mg Q12HR PO 09/23/16 09:00 09/26/16 09:34 Mirtazapine (Remeron) 45 mg HS PO 09/23/16 21:00 09/25/16 21:11 Montelukast Sodium (Singulair) 10 mg HS PO 09/23/16 21:00 09/25/16 21:13 Paroxetine HCl (Paxil) 30 mg DAILY PO 09/23/16 09:00 09/26/16 09:36 Morphine Sulfate (Oramorph Sr) 15 mg BID PO 09/23/16 10:00 09/26/16 09:37 Prednisone (Deltasone) 10 mg BID PO 09/24/16 21:00 09/26/16 09:35 Guaifenesin (Mucinex Er) 1,200 mg BID PO 09/25/16 21:00 09/26/16 09:34 Objective Remarks GENERAL: Elderly female, resting in bed in no distress SKIN: Warm and dry. Ecchymoses to R hand. No oozing from lines. HEAD: Normocephalic. EYES: No injection or drainage. NECK: Supple, trachea midline. CARDIOVASCULAR: +S1/S2. Regular rhythm. RESPIRATORY: Scattered rhonchi. Currently getting a breathing treatment. GASTROINTESTINAL: Abdomen soft, non-tender, nondistended. EXTREMITIES: No cyanosis, or edema. MUSCULOSKELETAL: Generalized weakness NEUROLOGICAL: No obvious focal deficit. Awake, alert, and oriented x3. Assessment/Plan Problem List: (1) Thrombocytopenia Status: Acute Plan: -- Concern for microangiopathy -- BIRD-13, peripheral smear and direct Fracisco negative -- Differential includes underlying infection versus consumption versus DIC versus TTP Assessment 86-year-old female with history of bladder cancer admitted with hematuria and thrombocytopenia Plan 1. Consult invasive radiology for catheter Placement 2. PEX #1 later tonight. Plan to do daily treatments x 5. 3. Await results of labs 4. Transfuse platelets ONLY for active bleeding Discussed with RN Discussed with [facility] nurse Attending Statement The exam, history, and the medical decision-making described in the above note were completed with the assistance of the mid-level provider. I reviewed and agree with the findings presented. I attest that I had a [id number] encounter with the patient on the same day, and personally performed and documented my assessment and findings in the medical record. 1. Acute Thrombocytopenia- suspicious for TTP - Had incomplete FFP transfusion last night due to reaction - Haptoglobin low, LDH elevated and transaminitis - Will initiate plasma exchange today - ADAMTS-13 testing has been ordered. - Check daily LDH, Haptoglobin and CBC 2. Elevated Liver functions/ ? liver disease --elevated since april 2016 - Hepatitis panel negative - GI seeing patient 2. Elevated T. bili/Alk phosp levated and GGT elevated pointing towards biliary etiology - indirect bili is normal - no evidence of brisk hemolysis - Direct fracisco test negative 3. Coagulopathy/decreased fibrinogen due to Liver disease vs DIC - Received cryo and partieal FFP - Fibrinogen up--now > 200 - Transfuse cryo to keep fibrinogen > 150 - Check dauly INR d/w Dr. Crenshaw d/w RN had long discussion with patient and her daughter Fany Mendieta [facility] Sep 26, 2016 11:55 Dominic Hurst MD Sep 26, 2016 23:07
[2016-09-26 13:01] LABS: BANDS 2 % (0-6); METAMYELOCYTES 1 % (0-1); MYELOCYTES 1 % (0-0); NEUTROPHIL # MANUAL DIFF 7.4 TH/MM3 (1.8-7.7); POLYS (SEG NEUTROPHILS) 70 % (16-70); WBC DIFF SAMPLE 100
[2016-09-26 13:02] LABS: OVALOCYTES 1+ (NORMAL); PLATELET ESTIMATE SMEAR LOW (NORMAL); PLATELET MORPHOLOGY ENLARGED (NORMAL); SCAN/DIFF FINAL DIFF MANUAL
--- NOTE | 2016-09-26 14:25 | PD.RAD ---
Post Procedure Progress Note Pre Procedure Diagnosis: (1) Thrombocytopenia Post Procedure Diagnosis: (1) Thrombocytopenia Procedure Date: Sep 26, 2016 Supervising Radiologist: Taz Loomis Proceduralist/Assist: Carole Eduardo RT(R), RT Breann(R)() Anesthesia: Local Plan of Activity Patient to Unit: Nursing Unit Patient Condition: Good Additional Comments: Placed right IJ temp cath See PACS Report for procedural detail/treatment Taz Loomis MD Sep 26, 2016 14:25
--- NOTE | 2016-09-26 15:00 | RADRPT ---
EXAM DATE/TIME: 09/26/2016 14:22 [place] COMPARISON: No previous studies available for comparison. INDICATIONS : Patient in need of vascath placement for plasma phoresis. MEDICAL HISTORY : COPD Anxiety Arthritis Asthma CAD Amaurosis Fugax TIA Hyperlipidemia HTN Hypothyroid Bladder cancer, s/p cystectomy Recurrent neuroendocrine carcinoma Left breast cancer Recurrent DVT/ PE SURGICAL HISTORY : Appendectomy AVR and single-vessel CABG in 2010 Cholecystectomy Cystectomy with ileal conduit EGD with dilatation Tonsillectomy Lymph node removal Bowel resection ENCOUNTER: Initial ACUITY: 4-6 days PAIN SCORE: 0/10 FLUORO TIME: 0.06 minutes IMAGE SERIES: 0 ACCESS: Right internal jugular vein MEDICATION(S): 1.) 2200 units Heparin IV DEVICE(S): 1.) 14 Greek single lumen 15 cm Schon catheter PROCEDURE : 1. Ultrasound guided venipuncture. 2. Fluoroscopic guidance. 3. Central line placement. The risks, benefits and alternatives to the procedure were explained and verbal and written consent w as obtained. The site was prepped in sterile fashion. Full sterile technique was used, including ca p, mask, sterile gloves and gown and a large sterile sheet. Hand hygiene and 2% chlorhexidine prep w as utilized per protocol for cutaneous antisepsis with appropriate dry time for site. The skin and subcutaneous tissues were infiltrated with local anesthetic solution. A suitable site a tim the vein was selected with ultrasound and fluoroscopic guidance. A small incision was made. Th e vein was accessed under direct ultrasound visualization using the micropuncture technique. The julio ropuncture set was exchanged for a 0.035 wire. The tract was dilated. The catheter was advanced int o position under direct fluoroscopic visualization. The catheter was fixed in place with suture and a sterile dressing was applied. The patient tolerated the procedure well and there were no complications. CONCLUSION: Uncomplicated line placement as above. Taz Loomis MD on September 26, 2016 at 14:58 Board Certified Radiologist. This report was verified electronically.
[2016-09-26] MEDS: BUDESONIDE-FORMOTEROL 80/4.5 MCG INHALER INH SCH ×2 (15:11→21:01)
[2016-09-26] MEDS: diphenhydrAMINE HCL 50 MG/ML VIAL IV PUSH SCH (20:06)
[2016-09-26] MEDS: ANTICOAGULANT CITRATE DEXTROSE SOLN-A 1L OTHER SCH (20:08)
[2016-09-26] MEDS: CALCIUM GLUCONATE INJ 3 GM in SODIUM CHLOR 0.9% 250 ML INJ 150 ML IV SCH (20:09)
[2016-09-26] MEDS: MONTELUKAST SODIUM 10 MG TAB PO SCH (20:59)
[2016-09-26] MEDS: MIRTAZAPINE 15 MG TAB PO SCH (20:59)
[2016-09-26] MEDS: HEPARIN SODIUM - 10,000 UNITS/ML 1ML VIAL IV FLUSH PRN (23:05)
[2016-09-26] MEDS: RESP: ALBUTEROL 2.5 MG/IPRATROPIUM 0.5 MG NEB (PRN) NEB (23:27)
[2016-09-27] VITALS (8 sets, daily range): BP systolic 111–143; BP diastolic 51–71; PULSE 68–98; RESP 16–20; TEMP 96–98.2; O2SAT 96–99
[2016-09-27] MEDS: hydrALAZINE HCL 25 MG TAB PO SCH ×3 (06:06→22:54)
[2016-09-27] MEDS: LEVOTHYROXINE SODIUM 150 MCG TAB PO SCH (06:06)
[2016-09-27] MEDS: INSULIN ASPART SUPPLEMENTAL SCALE SQ SCH ×4 (06:10→21:25)
[2016-09-27] MEDS: RESP: ALBUTEROL 2.5 MG/IPRATROPIUM 0.5 MG NEB (SCH) NEB ×3 (07:57→19:52)
[2016-09-27 08:33] LABS: AUTOMATED NEUTROPHIL # 5.6 TH/MM3 (1.8-7.7); BASOPHIL % 0.2 % (0.0-2.0); EOSINOPHIL # 0.2 TH/MM3 (0-0.4); EOSINOPHIL % 2.4 % (0.0-4.0); HEMATOCRIT 34.9 % (35.0-46.0); LYMPH % 18.3 % (9.0-44.0); LYMPHOCYTE # 1.5 TH/MM3 (1.0-4.8); MEAN CELL VOLUME 93.6 FL (80.0-100.0); MEAN CORPUSCULAR HGB CONC 33.2 % (32.0-36.0); MONO % 10.9 % (0.0-8.0); NEUT % 68.2 % (16.0-70.0); PLATELET COUNT 51 TH/MM3 (150-450); RED BLOOD COUNT 3.73 MIL/MM3 (4.00-5.30); RED CELL DISTRIBUTION WIDTH 15.6 % (11.6-17.2); WHITE BLOOD COUNT 8.2 TH/MM3 (4.0-11.0)
[2016-09-27 08:35] LABS: HEMO FLAGS AUTO DIFF
[2016-09-27 08:40] LABS: APTT (PATIENT) 25.4 SEC (24.3-30.1); PROTHROMBIN TIME - PATIENT 11.4 SEC (9.8-11.6)
[2016-09-27] MEDS: SODIUM CHLOR 0.9% 1000 ML INJ 1,000 ML IV SCH (09:00)
[2016-09-27] MEDS: ANTICOAGULANT CITRATE DEXTROSE SOLN-A 1L OTHER SCH ×2 (09:00→18:43)
[2016-09-27] MEDS: SODIUM CHLORIDE 0.9% FLUSH 10 ML FLUSH IV FLUSH SCH ×2 (09:00→20:44)
[2016-09-27] MEDS: CALCIUM GLUCONATE INJ 3 GM in SODIUM CHLOR 0.9% 250 ML INJ 150 ML IV SCH ×2 (09:00→18:43)
[2016-09-27 09:07] LABS: EOSINOPHILS 3 % (0-4); METAMYELOCYTES 1 % (0-1); MYELOCYTES 1 % (0-0); NEUTROPHIL # MANUAL DIFF 5.7 TH/MM3 (1.8-7.7); POLYS (SEG NEUTROPHILS) 67 % (16-70); WBC DIFF SAMPLE 100
[2016-09-27 09:08] LABS: OVALOCYTES 1+ (NORMAL); PLATELET ESTIMATE SMEAR LOW (NORMAL); PLATELET MORPHOLOGY NORMAL (NORMAL); SCAN/DIFF FINAL DIFF MANUAL
[2016-09-27] MEDS: CEFUROXIME AXETIL 500 MG TAB PO SCH ×2 (09:09→20:43)
[2016-09-27] MEDS: ATENOLOL 50 MG TAB PO SCH (09:09)
[2016-09-27] MEDS: LISINOPRIL 20 MG TAB PO SCH ×2 (09:09→20:43)
[2016-09-27] MEDS: PARoxetine HCL 20 MG TAB PO SCH (09:10)
[2016-09-27] MEDS: MORPHINE SULFATE 15 MG CONTROLLED RELEASE TAB PO SCH ×2 (09:11→21:00)
[2016-09-27] MEDS: guaiFENesin E.R. 600 MG TAB PO SCH ×2 (09:12→20:43)
[2016-09-27] MEDS: BUDESONIDE-FORMOTEROL 80/4.5 MCG INHALER INH SCH ×2 (09:12→20:43)
[2016-09-27] MEDS: predniSONE 10 MG TAB PO SCH (09:12)
--- NOTE | 2016-09-27 12:22 | HHI.PR ---
Subjective Remarks Tired today, slept poorly Had plasma exchange yesterday Increased cough, audible Rales sob no cp no hematuria eating okay family at bsd Objective Objective Results - Vital Signs Date Time Temp Pulse Resp B/P Pulse Ox O2 Delivery O2 Flow Rate FiO2 09/27/16 07:57 98 09/27/16 04:00 97.6 71 18 131/68 97 09/26/16 23:03 81 20 144/70 99 09/26/16 22:00 20 09/26/16 19:51 99 Nasal Cannula 2.00 09/26/16 16:00 97.8 70 18 120/52 97 I/O 09/26/16 09/26/16 09/26/16 09/27/16 09/27/16 09/27/16 06:59 14:59 22:59 06:59 14:59 22:59 Intake Total 60 ml 960 ml Output Total 1000 ml 900 ml Balance -940 ml 960 ml -900 ml Intake Oral 960 ml FFP 60 ml Output Urine Total 1000 ml 900 ml # Voids 5 Result Diagram: 09/27/16 0744 09/24/16 0651 Imaging Last Impressions Abdomen/Pelvis CT 09/23/16 0515 Signed Impressions: Service Date/Time: Friday, September 23, 2016 05:42 - CONCLUSION: 1. Abnormal bowel gas pattern with apparent inflammatory change and enhancement in the right upper quadrant the proximal small bowel and mid ileum. The findings are nonspecific. 2. Post surgical changes status post colonic resection. There is an ostomy in the right lower quadrant. 3. Anasarca. 4. The common bile duct appears prominent and measures up to 1 cm. Mandeep Abbasi MD Chest X-Ray 09/23/16 0315 Signed Impressions: Service Date/Time: Friday, September 23, 2016 03:14 - CONCLUSION: No acute disease. Status post median sternotomy. Mandeep Abbasi MD Other Results Laboratory Tests Test 09/26/16 09/27/16 09/27/16 14:22 06:43 07:44 Blood Bank Comment White Blood Count 8.2 Red Blood Count 3.73 Hemoglobin 11.6 Hematocrit 34.9 Mean Corpuscular Volume 93.6 Mean Corpuscular Hemoglobin 31.0 Mean Corpuscular Hemoglobin 33.2 Concent Red Cell Distribution Width 15.6 Platelet Count 51 Mean Platelet Volume 9.0 Neutrophils (%) (Auto) 68.2 Lymphocytes (%) (Auto) 18.3 Monocytes (%) (Auto) 10.9 Eosinophils (%) (Auto) 2.4 Basophils (%) (Auto) 0.2 Neutrophils # (Auto) 5.6 Lymphocytes # (Auto) 1.5 Monocytes # (Auto) 0.9 Eosinophils # (Auto) 0.2 Basophils # (Auto) 0.0 CBC Comment AUTO DIFF Differential Total Cells 100 Counted Neutrophils % (Manual) 67 Lymphocytes % 16 Monocytes % 12 Eosinophils % 3 Neutrophils # (Manual) 5.7 Metamyelocytes 1 Myelocytes 1 Differential Comment FINAL DIFF MANUAL Platelet Estimate LOW Platelet Morphology Comment NORMAL Ovalocytes 1+ Haptoglobin 23 Prothrombin Time 11.4 Prothromb Time International 1.0 Ratio Activated Partial 25.4 Thromboplast Time Fibrinogen 197 Lactate Dehydrogenase 299 Date/Time Procedure Status Source Growth 09/23/16 03:30 Urine Culture - Final Complete Urine Clean Catch Enterococcus Faecium ROS General: Weakness HEENT: No: Sore Throat, Dysphagia Cardiac: No: Chest Pain, Edema, Palpitations Pulmonary: Cough, SOB, Wheezing GI: No: Abdominal Pain, BM, Diarrhea, N/V /[employer]: No: Dysuria, Urgency Neuro/MS: No: Lightheaded, Confusion Psych: No: Anxiety, Depression Skin: No: Itching, Rash Physical Exam Physical Exam GENERAL: This is a well-nourished, well-developed patient, in no apparent distress. SKIN: No rashes, ecchymoses or lesions. Cool and dry. HEAD: Atraumatic. Normocephalic. No temporal or scalp tenderness. EYES: Pupils equal round and reactive. Extraocular motions intact. No scleral icterus. No injection or drainage. ENT: Nose without bleeding, purulent drainage or septal hematoma. Throat without erythema, tonsillar hypertrophy or exudate. Uvula midline. Airway patent. NECK: Trachea midline. No JVD or lymphadenopathy. Supple, nontender, no meningeal signs. CARDIOVASCULAR: Regular rate and rhythm without murmurs, gallops, or rubs. RESPIRATORY: coarse ronchi and exp. wheezes. + cough. : ileal conduit with light maria m urine. GASTROINTESTINAL: Abdomen soft, non-tender, nondistended. No hepato-splenomegaly , or palpable masses. No guarding. MUSCULOSKELETAL: Extremities without clubbing, cyanosis, or edema. No joint tenderness, effusion, or edema noted. No calf tenderness. Negative Homans sign bilaterally. NEUROLOGICAL: Awake and alert. Cranial nerves II through XII intact. Motor and sensory grossly within normal limits. Five out of 5 muscle strength in all muscle groups. Normal speech. A/P Diagnosis: (1) Hematuria (2) Anticoagulated by anticoagulation treatment (3) Thrombocytopenia (4) COPD exacerbation (5) Breast cancer, left (6) Hx pulmonary embolism (7) Hx of deep venous thrombosis (8) COPD with exacerbation (9) HTN (hypertension) (10) Bronchitis (11) Hx of bladder cancer (12) UTI (urinary tract infection) (13) Hyperglycemia Assessment and Plan 86-year-old elderly white female recently presents to ED with hematuria x 3 episodes. Hx of bladder cancer, had cystectomy. Pt. takes Eliquis. Was noted with thrombocytopenia, platelets trending down. Hematuria -Urology input appreciated, no further recommendations. Recommends to correct coagulopathy. Pt can f/u annually -HH stable, hematuria resolving UTI -Ent. faecium -may need to repeat for better sampling, it was pulled from bag not from stoma. -afebrile, hold off on abx Thrombocytopenia-susp. TTP -had incomplete FFP due to reaction -plat 51 today -LDH dropping, ADAMTS 13 pending, haptoglobin low -appreciate hematology input- -PPE tx started 09/26, plans for 5 treatments Elevated LFTs Elevated T. bili Elevated Alk phosph -GI consulted, input appreciate. Liver work up in progress. -HIDA scan done, no acute findings Recent admission for COPD exacerbation, with bronchitis-improving slowly. -Continue with Ceftin -Continue PO steroids, and wean off slowly -Continue DuoNeb's Continue with Tessalon when necessary Mucinex 600 mg by mouth twice a day Inc cough, SOB, rales -? CHF. -Will check BNP, give Lasix 20 mg IVP x 1. -repeat CXR, eval 2D echo History DVT and PE Continue to hold Eliquis until further evaluation for thrombocytopenia. Hypertension, uncontrolled Continue home medications -continue PRN BP meds Left breast cancer, recently diagnosed. Patient due to have lumpectomy with Dr. Schroeder in September. She is also to have radiation Prior history of bladder cancer, neuroendocrine malignancy Patient to follow-up with radiation oncology as outpatient Recent EGD with dilatation, their concern the patient continues to cough and may be choking on food Swallow evaluation done, recommendations noted. -No signs and symptoms of aspiration noted Hyperglycemia, likely secondary to steroids -Continue with low-dose insulin for sliding scale, blood glucose elevated secondary to steroids. Inc. activity, ok to ambulate SCDs DVT prophylaxis Labs in am condition guarded Discussed with RN Discussed with patient/family Discussed with Dr. Crenshaw This patient was seen by myself and Dr. Crenshaw, this note is written on her behalf Problem Qualifiers (1) Hematuria: Qualified Code: R31.0 - Gross hematuria (2) Breast cancer, left: Qualified Code: C50.912 - Malignant neoplasm of left female breast, unspecified estrogen receptor status, unspecified site of breast (3) HTN (hypertension): Qualified Code: I10 - Essential hypertension (4) UTI (urinary tract infection): Qualified Code: N39.0 - Urinary tract infection with hematuria, site unspecified Linda Land Sep 27, 2016 12:22
[2016-09-27] MEDS: RESP: ALBUTEROL 2.5 MG/IPRATROPIUM 0.5 MG NEB (PRN) NEB (13:25)
[2016-09-27] MEDS ORDERED: FUROSEMIDE 20 MG/2 ML VIAL IV PUSH ONE (13:30)
--- NOTE | 2016-09-27 14:41 | PD.ONC.PN ---
Subjective Subjective Remarks Afebrile overnight. Patient resting in room in nad. Per patient she tolerated plasma exchange yesterday without difficulty. She is feeling short of breath with wet cough today. Objective Data Date Time Temp Pulse Resp B/P Pulse Ox O2 Delivery O2 Flow Rate FiO2 09/27/16 07:57 98 09/27/16 04:00 97.6 71 18 131/68 97 09/26/16 23:03 81 20 144/70 99 09/26/16 22:00 20 09/26/16 19:51 99 Nasal Cannula 2.00 09/26/16 16:00 97.8 70 18 120/52 97 Result Diagram: 09/27/16 0744 09/24/16 0651 Laboratory Results Laboratory Tests Test 09/27/16 09/27/16 06:43 07:44 Blood Bank Comment White Blood Count 8.2 TH/MM3 Red Blood Count 3.73 MIL/MM3 Hemoglobin 11.6 GM/DL Hematocrit 34.9 % Mean Corpuscular Volume 93.6 FL Mean Corpuscular Hemoglobin 31.0 PG Mean Corpuscular Hemoglobin 33.2 % Concent Red Cell Distribution Width 15.6 % Platelet Count 51 TH/MM3 Mean Platelet Volume 9.0 FL Neutrophils (%) (Auto) 68.2 % Lymphocytes (%) (Auto) 18.3 % Monocytes (%) (Auto) 10.9 % Eosinophils (%) (Auto) 2.4 % Basophils (%) (Auto) 0.2 % Neutrophils # (Auto) 5.6 TH/MM3 Lymphocytes # (Auto) 1.5 TH/MM3 Monocytes # (Auto) 0.9 TH/MM3 Eosinophils # (Auto) 0.2 TH/MM3 Basophils # (Auto) 0.0 TH/MM3 CBC Comment AUTO DIFF Differential Total Cells 100 Counted Neutrophils % (Manual) 67 % Lymphocytes % 16 % Monocytes % 12 % Eosinophils % 3 % Neutrophils # (Manual) 5.7 TH/MM3 Metamyelocytes 1 % Myelocytes 1 % Differential Comment FINAL DIFF MANUAL Platelet Estimate LOW Platelet Morphology Comment NORMAL Ovalocytes 1+ Haptoglobin 23 MG/DL Prothrombin Time 11.4 SEC Prothromb Time International 1.0 RATIO Ratio Activated Partial 25.4 SEC Thromboplast Time Fibrinogen 197 mg/dL Lactate Dehydrogenase 299 U/L B-Type Natriuretic Peptide 170 PG/ML Administered Medications Medications (Trade) Dose Ordered Sig/Jasmina Route PRN Reason Start Time Stop Time Status Last Admin Dose Admin Sodium Chloride (NS Flush) 2 ml BID IV FLUSH 09/23/16 09:00 09/27/16 09:00 Ondansetron HCl (Zofran Inj) 4 mg Q6H PRN IVP NAUSEA OR VOMITING 09/23/16 06:15 09/26/16 15:15 Morphine Sulfate (Morphine Inj) 1 mg Q3H PRN IV PUSH pain 3-5 09/23/16 06:15 09/26/16 15:11 Atenolol (Tenormin) 50 mg DAILY PO 09/23/16 09:00 09/27/16 09:09 Budesonide/ Formoterol Fumarate (Symbicort 80-4.5 Mcg Inh) 2 puff Q12HR INH 09/23/16 09:00 09/27/16 09:12 Cefuroxime Axetil (Ceftin) 500 mg Q12HR PO 09/23/16 09:00 09/27/16 09:09 Hydralazine HCl (Apresoline) 25 mg Q8HR PO 09/23/16 14:00 09/27/16 14:29 Levothyroxine Sodium (Synthroid) 150 mcg DAILY@06 PO 09/23/16 07:39 09/27/16 06:06 Lisinopril (Prinivil) 20 mg Q12HR PO 09/23/16 09:00 09/27/16 09:09 Mirtazapine (Remeron) 45 mg HS PO 09/23/16 21:00 09/26/16 20:59 Montelukast Sodium (Singulair) 10 mg HS PO 09/23/16 21:00 09/26/16 20:59 Paroxetine HCl (Paxil) 30 mg DAILY PO 09/23/16 09:00 09/27/16 09:10 Morphine Sulfate (Oramorph Sr) 15 mg BID PO 09/23/16 10:00 09/27/16 09:11 Guaifenesin (Mucinex Er) 1,200 mg BID PO 09/25/16 21:00 09/27/16 09:12 Prednisone 10 mg 10 mg DAILY PO 09/27/16 09:00 09/27/16 09:12 Calcium Gluconate/ Sodium Chloride (Calcium Gluconate Inj/NS 250 ml Inj) 180 ml @ 90 mls/hr Q24H IV 09/26/16 19:00 09/30/16 20:59 09/26/16 20:09 Anticoagulant Citrate Dextose Yocasta A (Acd Formula Inj) 1,000 ml Q24H OTHER 09/26/16 19:15 09/30/16 19:16 09/26/16 20:08 Heparin Sodium (Porcine) (Heparin Inj) 5,000 units UNSCH PRN IV FLUSH FLUSH AFTER USING IV ACCESS 09/26/16 19:00 10/01/16 18:59 09/26/16 23:05 Diphenhydramine HCl (Benadryl Inj) 25 mg Q24H IV PUSH 09/26/16 19:00 09/30/16 19:01 09/26/16 20:06 Objective Remarks GENERAL: pleasant elderly female supine in bed. SKIN: Warm and dry. HEAD: Normocephalic. EYES: No injection or drainage. NECK: Supple, trachea midline. CARDIOVASCULAR: Regular rate and rhythm RESPIRATORY: scattered coarse rhonchi. GASTROINTESTINAL: Abdomen soft, non-tender, nondistended. EXTREMITIES: No cyanosis. mild edema, ble NEUROLOGICAL: awake and alert, normal speech. Assessment/Plan Problem List: (1) Thrombocytopenia Status: Acute (2) COPD exacerbation Status: Acute (3) Hx of bladder cancer Status: Acute Assessment 86-year-old female with history of bladder cancer admitted with hematuria and thrombocytopenia Plan 1. Acute Thrombocytopenia- suspicious for TTP - Had incomplete FFP transfusion last night due to reaction - Haptoglobin low, LDH elevated and transaminitis - plasma exchange started 8.3 - ADAMTS-13 pending. - 09/27: LDH falling, platelet count marginally improved. continue plasma exchange 2. Elevated Liver functions/ ? liver disease --elevated since april 2016 - Hepatitis panel negative - GI following - Elevated T. bili/Alk phosp levated and GGT elevated pointing towards biliary etiology - indirect bili is normal - no evidence of brisk hemolysis - Direct fracisco test negative 3. Coagulopathy/decreased fibrinogen due to Liver disease vs DIC - Received cryo and FFP - Fibrinogen up--now > 200 - Transfuse cryo to keep fibrinogen > 150 - Check daily INR Attending Statement The exam, history, and the medical decision-making described in the above note were completed with the assistance of the mid-level provider. I reviewed and agree with the findings presented. I attest that I had a [id number] encounter with the patient on the same day, and personally performed and documented my assessment and findings in the medical record. Continue daily plasma exchange for suspected TTP LDH down/platelets stable at 51 chest X-ray negative for pneumonia/volume overload Had Lasix today check LDH, haptoglobin, INR and fibrinogen in am d/w RN answered patient's questions. son present in the room. Brandie Mtahis Sep 27, 2016 14:40 Dominic Hurst MD Sep 28, 2016 00:35
--- NOTE | 2016-09-27 15:48 | HHI.GIFU ---
Subjective Remarks Pt resting in bed, visiting with family. Says she feels like more fluid is in her "chest." (Safia Apodaca) Objective Vitals I&O Vital Signs Date Time Temp Pulse Resp B/P Pulse Ox O2 Delivery O2 Flow Rate FiO2 09/27/16 12:00 98.0 79 20 141/67 99 09/27/16 08:00 98.2 77 20 132/71 99 09/27/16 07:57 98 09/27/16 04:00 97.6 71 18 131/68 97 09/26/16 23:03 81 20 144/70 99 09/26/16 22:00 20 09/26/16 19:51 99 Nasal Cannula 2.00 09/26/16 16:00 97.8 70 18 120/52 97 I/O 09/26/16 09/26/16 09/26/16 09/27/16 09/27/16 09/27/16 06:59 14:59 22:59 06:59 14:59 22:59 Intake Total 60 ml 960 ml Output Total 1000 ml 900 ml Balance -940 ml 960 ml -900 ml Intake Oral 960 ml FFP 60 ml Output Urine Total 1000 ml 900 ml # Voids 5 Laboratory Laboratory Tests Test 09/27/16 09/27/16 06:43 07:44 Blood Bank Comment White Blood Count 8.2 Red Blood Count 3.73 Hemoglobin 11.6 Hematocrit 34.9 Mean Corpuscular Volume 93.6 Mean Corpuscular Hemoglobin 31.0 Mean Corpuscular Hemoglobin 33.2 Concent Red Cell Distribution Width 15.6 Platelet Count 51 Mean Platelet Volume 9.0 Neutrophils (%) (Auto) 68.2 Lymphocytes (%) (Auto) 18.3 Monocytes (%) (Auto) 10.9 Eosinophils (%) (Auto) 2.4 Basophils (%) (Auto) 0.2 Neutrophils # (Auto) 5.6 Lymphocytes # (Auto) 1.5 Monocytes # (Auto) 0.9 Eosinophils # (Auto) 0.2 Basophils # (Auto) 0.0 CBC Comment AUTO DIFF Differential Total Cells 100 Counted Neutrophils % (Manual) 67 Lymphocytes % 16 Monocytes % 12 Eosinophils % 3 Neutrophils # (Manual) 5.7 Metamyelocytes 1 Myelocytes 1 Differential Comment FINAL DIFF MANUAL Platelet Estimate LOW Platelet Morphology Comment NORMAL Ovalocytes 1+ Haptoglobin 23 Prothrombin Time 11.4 Prothromb Time International 1.0 Ratio Activated Partial 25.4 Thromboplast Time Fibrinogen 197 Lactate Dehydrogenase 299 B-Type Natriuretic Peptide 170 Date/Time Procedure Status Source Growth 09/23/16 03:30 Urine Culture - Final Complete Urine Clean Catch Enterococcus Faecium Imaging Last Impressions Catheter Placement X-Ray 09/26/16 0000 Signed Impressions: Service Date/Time: September 14:22 - CONCLUSION: Uncomplicated line placement as above. Taz Loomis MD Hepatobiliary Scan Nuclear Medicine 09/25/16 0000 Signed Impressions: Service Date/Time: Sunday, September 25, 2016 07:58 - CONCLUSION: There is no evidence for common duct obstruction. Andreas Ogden MD FACR Chest X-Ray 09/25/16 0000 Signed Impressions: Service Date/Time: Sunday, September 25, 2016 10:17 - CONCLUSION: Negative for acute disease. I don't see significant failure. Andreas Ogden MD FACR Abdomen/Pelvis CT 09/23/16 0515 Signed Impressions: Service Date/Time: Friday, September 23, 2016 05:42 - CONCLUSION: 1. Abnormal bowel gas pattern with apparent inflammatory change and enhancement in the right upper quadrant the proximal small bowel and mid ileum. The findings are nonspecific. 2. Post surgical changes status post colonic resection. There is an ostomy in the right lower quadrant. 3. Anasarca. 4. The common bile duct appears prominent and measures up to 1 cm. Mandeep Abbasi MD Physical Exam HEENT: PERRL; normocephalic; atraumatic; no jaundice. CHEST: coarse rales CARDIAC: irr HR, + murmur ABDOMEN: Soft, nondistended, nontender; no hepatosplenomegaly; bowel sounds are present in all four quadrants. ileal conduit bag- clear urine no blood EXTREMITIES: No clubbing, cyanosis, or edema. SKIN: no rash; no jaundice. ecchymoses BUE MATERIALS ANALYST: No focal deficits; alert and oriented times three. (Safia Apodaca) Assessment and Plan Plan ASSESSMENT: - Elevated LFTs. She reports long history of LFTs "fluctuating" but denies any known underlying liver disease such as cirrhosis. No ETOH. No family hx of liver disease. Hepatitis panel negative. Abdomen/Pelvis CT (09/23/16)---> 1. Abnormal bowel gas pattern with apparent inflammatory change and enhancement in the right upper quadrant the proximal small bowel and mid ileum. The findings are nonspecific. 2. Post surgical changes status post colonic resection. There is an ostomy in the right lower quadrant. 3. Anasarca. 4. The common bile duct appears prominent and measures up to 1 cm. HIDA (09/25/16)----> There is no evidence for common duct obstruction. Occasional nausea, mild abdominal discomfort- related to coughing. PAKO neg, ASMA neg, AFP not elevated, not alpha 1 antitrypsin deficient - Acute thrombocytopenia/coagulopathy, unclear etiology. Hematology following for the acute thrombocytopenia with elevated LDH and low haptoglobin, low fibrinogen. It is unclear at this time, if this is related to underlying liver disease vs hemolysis, TTP. She is being treated with steroids, FFP. s/p plasma exchange - Hematuria. S/P evaluation, recommended conservative management with correction of underlying coagulopathy. - Hx recurrent DVT/PE. Eliquis - Hx Bladder cancer, S/P radical cystectomy and ileal conduit urinary diversion in 1987- without evidence of recurrent disease - Hx Colon cancer, s/p resection without chemotherapy or radiation - COPD, Bronchitis, HTN, UTI per attending. PLAN: - so far liver w/u neg, consider MRCP - ELIZA - await iron studies - await ceruloplasmin, AMA - Monitor LFTs - Supportive care - Further recommendations to follow based on results of above - Pt seen and examined by Dr. Guy and myself and this note is written on her behalf (Safia Apodaca) Safia Apodaca Sep 27, 2016 15:47 Dana Guy MD Sep 27, 2016 20:21
--- NOTE | 2016-09-27 16:44 | RADRPT ---
EXAM DATE/TIME: 09/27/2016 15:52 [facility] COMPARISON: CHEST SINGLE AP, September 25, 2016, 10:17. INDICATIONS : Shortness of breath. MEDICAL HISTORY : Congestive heart failure. Cardiovascular disease. SURGICAL HISTORY : Cholecystectomy. Colon resection. Appendectomy. ENCOUNTER: Subsequent ACUITY: 2 weeks PAIN SCORE: 0/10 LOCATION: Left chest FINDINGS: Interval placement of temporary dialysis catheter with tip in the proximal right atrium. Lungs are hy poexpanded with mild in airspace disease in the left lower lung zone slightly progressed from prior e xam. Cardiomediastinal contours are stable. Remainder of the exam is unchanged. CONCLUSION: 1. Mild worsening left lower lung zone atelectasis. Taz Loomis MD on September 27, 2016 at 16:42 Board Certified Radiologist. This report was verified electronically.
[2016-09-27] MEDS: diphenhydrAMINE HCL 50 MG/ML VIAL IV PUSH SCH (18:42)
[2016-09-27 19:10] LABS: INDIRECT BILIRUBIN 0.4 MG/DL (0.0-0.8); TOTAL BILIRUBIN ADULT 0.7 MG/DL (0.2-1.0)
[2016-09-27] MEDS: MORPHINE SULFATE 4 MG/ML INJ IV PUSH PRN (19:52)
[2016-09-27] MEDS: MIRTAZAPINE 15 MG TAB PO SCH (20:43)
[2016-09-27] MEDS: MONTELUKAST SODIUM 10 MG TAB PO SCH (20:44)
[2016-09-27] MEDS: HEPARIN SODIUM - 10,000 UNITS/ML 1ML VIAL IV FLUSH PRN (21:19)
[2016-09-28] VITALS (7 sets, daily range): BP systolic 106–148; BP diastolic 64–83; PULSE 78–121; RESP 18–24; TEMP 96.7–98.5; O2SAT 96–100
[2016-09-28] MEDS: hydrALAZINE HCL 25 MG TAB PO SCH ×3 (05:27→21:43)
[2016-09-28] MEDS: LEVOTHYROXINE SODIUM 150 MCG TAB PO SCH (05:27)
[2016-09-28] MEDS: MORPHINE SULFATE 4 MG/ML INJ IV PUSH PRN ×2 (05:36→14:30)
[2016-09-28] MEDS: INSULIN ASPART SUPPLEMENTAL SCALE SQ SCH ×4 (05:40→21:00)
[2016-09-28] MEDS: predniSONE 10 MG TAB PO SCH (08:45)
[2016-09-28] MEDS: guaiFENesin E.R. 600 MG TAB PO SCH ×2 (08:45→21:41)
[2016-09-28] MEDS: CEFUROXIME AXETIL 500 MG TAB PO SCH ×2 (08:46→21:41)
[2016-09-28] MEDS: PARoxetine HCL 20 MG TAB PO SCH (08:46)
[2016-09-28] MEDS: MORPHINE SULFATE 15 MG CONTROLLED RELEASE TAB PO SCH ×2 (08:47→21:43)
[2016-09-28] MEDS: RESP: ALBUTEROL 2.5 MG/IPRATROPIUM 0.5 MG NEB (SCH) NEB ×4 (09:00→19:42)
[2016-09-28] MEDS: diphenhydrAMINE HCL 50 MG/ML VIAL IV PUSH SCH (09:50)
--- NOTE | 2016-09-28 10:08 | PD.ONC.PN ---
Subjective Subjective Remarks Afebrile overnight. Resting in bed in nad. NO overnight events. Tolerated plasma exchange yesterday. Objective Data Date Time Temp Pulse Resp B/P Pulse Ox O2 Delivery O2 Flow Rate FiO2 09/28/16 09:00 98 Nasal Cannula 2.00 09/28/16 08:30 97.7 103 18 144/83 100 09/28/16 06:07 20 09/28/16 04:00 96.7 100 20 147/64 98 09/27/16 22:51 96.0 78 20 143/54 97 09/27/16 22:49 20 09/27/16 20:00 97.4 98 16 111/51 97 09/27/16 19:53 96 Nasal Cannula 3.00 09/27/16 16:00 97.0 68 18 129/67 97 09/27/16 12:00 98.0 79 20 141/67 99 09/28/16 09/28/16 09/28/16 07:00 15:00 23:00 Intake Total 240 ml Output Total 450 ml Balance -210 ml Result Diagram: 09/27/16 0744 09/24/16 0651 Laboratory Results Laboratory Tests Test 09/28/16 00:44 Blood Bank Comment Administered Medications Medications (Trade) Dose Ordered Sig/Jasmina Route PRN Reason Start Time Stop Time Status Last Admin Dose Admin Sodium Chloride (NS Flush) 2 ml BID IV FLUSH 09/23/16 09:00 09/27/16 20:44 Ondansetron HCl (Zofran Inj) 4 mg Q6H PRN IVP NAUSEA OR VOMITING 09/23/16 06:15 09/26/16 15:15 Morphine Sulfate (Morphine Inj) 1 mg Q3H PRN IV PUSH pain 3-5 09/23/16 06:15 09/28/16 05:36 Atenolol (Tenormin) 50 mg DAILY PO 09/23/16 09:00 09/27/16 09:09 Benzonatate (Tessalon) 100 mg TID PRN PO COUGH 09/23/16 07:30 09/28/16 00:13 Budesonide/ Formoterol Fumarate (Symbicort 80-4.5 Mcg Inh) 2 puff Q12HR INH 09/23/16 09:00 09/27/16 20:43 Cefuroxime Axetil (Ceftin) 500 mg Q12HR PO 7/31/17 09:00 09/28/16 08:46 Hydralazine HCl (Apresoline) 25 mg Q8HR PO 09/23/16 14:00 09/28/16 05:27 Levothyroxine Sodium (Synthroid) 150 mcg DAILY@06 PO 09/23/16 07:39 09/28/16 05:27 Lisinopril (Prinivil) 20 mg Q12HR PO 09/23/16 09:00 09/27/16 20:43 Mirtazapine (Remeron) 45 mg HS PO 09/23/16 21:00 09/27/16 20:43 Montelukast Sodium (Singulair) 10 mg HS PO 09/23/16 21:00 09/27/16 20:44 Paroxetine HCl (Paxil) 30 mg DAILY PO 09/23/16 09:00 09/28/16 08:46 Morphine Sulfate (Oramorph Sr) 15 mg BID PO 09/23/16 10:00 09/28/16 08:47 Guaifenesin (Mucinex Er) 1,200 mg BID PO 09/25/16 21:00 09/28/16 08:45 Prednisone 10 mg 10 mg DAILY PO 09/27/16 09:00 09/28/16 08:45 Calcium Gluconate/ Sodium Chloride (Calcium Gluconate Inj/NS 250 ml Inj) 180 ml @ 90 mls/hr Q24H IV 09/26/16 19:00 09/30/16 20:59 09/27/16 18:43 Anticoagulant Citrate Dextose Yocasta A (Acd Formula Inj) 1,000 ml Q24H OTHER 09/26/16 19:15 09/30/16 19:16 09/27/16 18:43 Heparin Sodium (Porcine) (Heparin Inj) 5,000 units UNSCH PRN IV FLUSH FLUSH AFTER USING IV ACCESS 09/26/16 19:00 10/01/16 18:59 09/27/16 21:19 Diphenhydramine HCl (Benadryl Inj) 25 mg Q24H IV PUSH 09/26/16 19:00 09/30/16 19:01 09/28/16 09:50 Objective Remarks GENERAL: Elderly female supine in bed, on 2L O2 via NC SKIN: Warm and dry. HEAD: Normocephalic. EYES: No injection or drainage. NECK: Supple, trachea midline. CARDIOVASCULAR: Regular rate and rhythm RESPIRATORY: diminished at bases. anterior lockhart with coarse rhonchi GASTROINTESTINAL: Abdomen soft, non-tender, nondistended. EXTREMITIES: No cyanosis. moderate edema, bilateral lower extremities. NEUROLOGICAL: awake and alert, normal speech. moving extremities Assessment/Plan Problem List: (1) Thrombocytopenia Status: Acute (2) COPD exacerbation Status: Acute (3) Hx of bladder cancer Status: Acute Assessment 86-year-old female with history of bladder cancer admitted with hematuria and thrombocytopenia Plan 1. Acute Thrombocytopenia- suspicious for TTP - Had incomplete FFP transfusion last night due to reaction - Haptoglobin low, LDH elevated and transaminitis - plasma exchange started 8.3 - [id number]-13 pending. - 09/27: LDH falling, platelet count marginally improved. continue plasma exchange --09/28: platelets improved to 70K, LDH fell. monitor. await ADAMS13. 2. Elevated Liver functions/ ? liver disease --elevated since april 2016 - Hepatitis panel negative - GI following - Elevated T. bili/Alk phosp levated and GGT elevated pointing towards biliary etiology - indirect bili is normal - no evidence of brisk hemolysis - Direct fracisco test negative 3. Coagulopathy/decreased fibrinogen due to Liver disease vs DIC - Received cryo and FFP - Fibrinogen up--now > 200 - Transfuse cryo to keep fibrinogen > 150 - Check daily INR Attending Statement The exam, history, and the medical decision-making described in the above note were completed with the assistance of the mid-level provider. I reviewed and agree with the findings presented. I attest that I had a [id number] encounter with the patient on the same day, and personally performed and documented my assessment and findings in the medical record. Tolerating PLEX. No bleeding noted. Platelet trending up. [id number] pending. Brandie Mathis Sep 28, 2016 10:08 Navjot Spivey MD Sep 28, 2016 12:57
--- NOTE | 2016-09-28 10:25 | HHI.PR ---
Subjective Remarks sob slightly improved has occ. cough no cp no fever tired getting ready to start PPE Objective Objective Results - Vital Signs Date Time Temp Pulse Resp B/P Pulse Ox O2 Delivery O2 Flow Rate FiO2 09/28/16 09:00 98 Nasal Cannula 2.00 09/28/16 08:30 97.7 103 18 144/83 100 09/28/16 06:07 20 09/28/16 04:00 96.7 100 20 147/64 98 09/27/16 22:51 96.0 78 20 143/54 97 09/27/16 22:49 20 09/27/16 20:00 97.4 98 16 111/51 97 09/27/16 19:53 96 Nasal Cannula 3.00 09/27/16 16:00 97.0 68 18 129/67 97 09/27/16 12:00 98.0 79 20 141/67 99 I/O 09/27/16 09/27/16 09/27/16 09/28/16 09/28/16 09/28/16 07:00 15:00 23:00 07:00 15:00 23:00 Intake Total 1200 ml 240 ml Output Total 900 ml 1650 ml 450 ml Balance -900 ml -450 ml -210 ml Intake Oral 1200 ml 240 ml Output Urine Total 900 ml 450 ml Stool Total 1650 ml Result Diagram: 09/27/16 0744 09/24/16 0651 Imaging Last Impressions Abdomen/Pelvis CT 09/23/16 0515 Signed Impressions: Service Date/Time: Friday, September 23, 2016 05:42 - CONCLUSION: 1. Abnormal bowel gas pattern with apparent inflammatory change and enhancement in the right upper quadrant the proximal small bowel and mid ileum. The findings are nonspecific. 2. Post surgical changes status post colonic resection. There is an ostomy in the right lower quadrant. 3. Anasarca. 4. The common bile duct appears prominent and measures up to 1 cm. Mandeep Abbasi MD Chest X-Ray 09/23/16 0315 Signed Impressions: Service Date/Time: Friday, September 23, 2016 03:14 - CONCLUSION: No acute disease. Status post median sternotomy. Mandeep Abbasi MD Other Results Laboratory Tests Test 09/28/16 00:44 Blood Bank Comment ROS General: Fatigue HEENT: No: Sore Throat, Dysphagia Cardiac: No: Chest Pain, Edema, Palpitations Pulmonary: Cough, SOB, Wheezing GI: No: Abdominal Pain, BM, Diarrhea, N/V /SUPER[employer]: No: Dysuria, Urgency Neuro/MS: No: Lightheaded, Confusion Psych: No: Anxiety, Depression Skin: No: Itching, Rash Physical Exam Physical Exam GENERAL: This is a well-nourished, well-developed patient, in no apparent distress. SKIN: No rashes, ecchymoses or lesions. Cool and dry. HEAD: Atraumatic. Normocephalic. No temporal or scalp tenderness. EYES: Pupils equal round and reactive. Extraocular motions intact. No scleral icterus. No injection or drainage. ENT: Nose without bleeding, purulent drainage or septal hematoma. Throat without erythema, tonsillar hypertrophy or exudate. Uvula midline. Airway patent. NECK: Trachea midline. No JVD or lymphadenopathy. Supple, nontender, no meningeal signs. CARDIOVASCULAR: Regular rate and rhythm without murmurs, gallops, or rubs. RESPIRATORY: ronchi upper lobes, bibasilar rales. Occ. exp. wheeze : ileal conduit with light maria m urine. GASTROINTESTINAL: Abdomen soft, non-tender, nondistended. No hepato-splenomegaly , or palpable masses. No guarding. MUSCULOSKELETAL: Extremities without clubbing, cyanosis, or edema. No joint tenderness, effusion, or edema noted. No calf tenderness. Negative Homans sign bilaterally. NEUROLOGICAL: Awake and alert. Cranial nerves II through XII intact. Motor and sensory grossly within normal limits. Five out of 5 muscle strength in all muscle groups. Normal speech. Urinary Catheter: No Vascular Central Line Catheter: No A/P Diagnosis: (1) Hematuria (2) Anticoagulated by anticoagulation treatment (3) Thrombocytopenia (4) COPD exacerbation (5) Breast cancer, left (6) Hx pulmonary embolism (7) Hx of deep venous thrombosis (8) COPD with exacerbation (9) HTN (hypertension) (10) Bronchitis (11) Hx of bladder cancer (12) UTI (urinary tract infection) (13) Hyperglycemia Assessment and Plan 86-year-old elderly white female recently presents to ED with hematuria x 3 episodes. Hx of bladder cancer, had cystectomy. Pt. takes Eliquis. Was noted with thrombocytopenia, platelets trending down. Hematuria -Urology input appreciated, no further recommendations. Recommends to correct coagulopathy. Pt can f/u annually -HH stable, hematuria resolving UTI -Ent. faecium -may need to repeat for better sampling, it was pulled from bag not from stoma. -afebrile, hold off on abx Thrombocytopenia-susp. TTP -had incomplete FFP due to reaction -LDH dropping, ADAMTS 13 pending, haptoglobin low -appreciate hematology input- -PPE tx started 09/26, plans for 5 treatments -tx today. Elevated LFTs Elevated T. bili Elevated Alk phosph -GI consulted, input appreciate. Liver work up in progress. -HIDA scan done, no acute findings Recent admission for COPD exacerbation, with bronchitis-improving slowly. -Continue with Ceftin -Continue PO steroids, and wean off slowly -Continue DuoNeb's Continue with Tessalon when necessary Mucinex 600 mg by mouth twice a day Mild CHF -CXR mild worsening left lower zone -diuresing well after IV lasix, will continue Lasix 20 mg po daily for a few days -BNP mildly elevated, 170 -2D echo pending History DVT and PE Continue to hold Eliquis until further evaluation for thrombocytopenia. Hypertension, uncontrolled better controlled Continue home medications -continue PRN BP meds Left breast cancer, recently diagnosed. Patient due to have lumpectomy with Dr. Schroeder in September. She is also to have radiation Prior history of bladder cancer, neuroendocrine malignancy Patient to follow-up with radiation oncology as outpatient Recent EGD with dilatation, their concern the patient continues to cough and may be choking on food Swallow evaluation done, recommendations noted. -No signs and symptoms of aspiration noted Hyperglycemia, likely secondary to steroids -Continue with low-dose insulin for sliding scale, blood glucose elevated secondary to steroids. Inc. activity, ok to ambulate SCDs DVT prophylaxis continue with present tx condition guarded labs pending today CBC in am Discussed with RN Discussed with patient Discussed with Dr. Crenshaw This patient was seen by myself and Dr. Crenshaw, this note is written on her behalf Problem Qualifiers (1) Hematuria: Qualified Code: R31.0 - Gross hematuria (2) Breast cancer, left: Qualified Code: C50.912 - Malignant neoplasm of left female breast, unspecified estrogen receptor status, unspecified site of breast (3) HTN (hypertension): Qualified Code: I10 - Essential hypertension (4) UTI (urinary tract infection): Qualified Code: N39.0 - Urinary tract infection with hematuria, site unspecified Linda Land Sep 28, 2016 10:24
[2016-09-28] MEDS ORDERED: FUROSEMIDE 20 MG TAB PO ONE (10:30)
[2016-09-28 10:56] LABS: AUTOMATED NEUTROPHIL # 6.7 TH/MM3 (1.8-7.7); BASOPHIL % 0.5 % (0.0-2.0); EOSINOPHIL # 0.2 TH/MM3 (0-0.4); EOSINOPHIL % 2.2 % (0.0-4.0); LYMPH % 13.5 % (9.0-44.0); LYMPHOCYTE # 1.2 TH/MM3 (1.0-4.8); MEAN CELL VOLUME 94.4 FL (80.0-100.0); MEAN CORPUSCULAR HEMOGLOBIN 30.7 PG (27.0-34.0); MEAN CORPUSCULAR HGB CONC 32.6 % (32.0-36.0); MONO % 11.5 % (0.0-8.0); NEUT % 72.3 % (16.0-70.0); PLATELET COUNT 70 TH/MM3 (150-450); RED BLOOD COUNT 3.71 MIL/MM3 (4.00-5.30); RED CELL DISTRIBUTION WIDTH 15.6 % (11.6-17.2); WHITE BLOOD COUNT 9.2 TH/MM3 (4.0-11.0)
[2016-09-28 10:58] LABS: HEMO FLAGS AUTO DIFF
[2016-09-28 11:08] LABS: INTERNATIONAL NORMALIZED RATIO 1.1 RATIO; PROTHROMBIN TIME - PATIENT 11.7 SEC (9.8-11.6)
[2016-09-28 11:09] LABS: BICARBONATE 37.2 MEQ/L (21.0-32.0); MAGNESIUM 1.9 MG/DL (1.5-2.5); POTASSIUM 3.7 MEQ/L (3.5-5.1)
[2016-09-28 11:18] LABS: APTT (PATIENT) 26.6 SEC (24.3-30.1)
[2016-09-28 11:51] LABS: OVALOCYTES 1+ (NORMAL); PLATELET ESTIMATE SMEAR LOW (NORMAL); PLATELET MORPHOLOGY NORMAL (NORMAL); SCAN/DIFF AUTO DIFF CONFIRMED
[2016-09-28] MEDS: HEPARIN SODIUM - 10,000 UNITS/ML 1ML VIAL IV FLUSH PRN (12:36)
--- NOTE | 2016-09-28 14:06 | HHI.GIFU ---
Subjective Remarks Patient is sitting up in bed, getting ready to take a shower. No bleeding reported. No nausea, vomiting, abd pain, melena or hematochezia (Nubia Vaughan) Objective Vitals I&O Vital Signs Date Time Temp Pulse Resp B/P Pulse Ox O2 Delivery O2 Flow Rate FiO2 09/28/16 12:00 78 20 122/68 97 09/28/16 11:49 15 09/28/16 09:00 98 Nasal Cannula 2.00 09/28/16 08:30 97.7 103 18 144/83 100 09/28/16 06:07 20 09/28/16 04:00 96.7 100 20 147/64 98 09/27/16 22:51 96.0 78 20 143/54 97 09/27/16 20:00 97.4 98 16 111/51 97 09/27/16 19:53 96 Nasal Cannula 3.00 09/27/16 16:00 97.0 68 18 129/67 97 I/O 09/27/16 09/27/16 09/27/16 09/28/16 09/28/16 09/28/16 07:00 15:00 23:00 07:00 15:00 23:00 Intake Total 1200 ml 240 ml Output Total 900 ml 1650 ml 450 ml Balance -900 ml -450 ml -210 ml Intake Oral 1200 ml 240 ml Output Urine Total 900 ml 450 ml Stool Total 1650 ml Laboratory Laboratory Tests Test 09/28/16 09/28/16 09/28/16 00:44 10:24 10:25 Blood Bank Comment White Blood Count 9.2 Red Blood Count 3.71 Hemoglobin 11.4 Hematocrit 35.0 Mean Corpuscular Volume 94.4 Mean Corpuscular Hemoglobin 30.7 Mean Corpuscular Hemoglobin 32.6 Concent Red Cell Distribution Width 15.6 Platelet Count 70 Mean Platelet Volume 8.6 Neutrophils (%) (Auto) 72.3 Lymphocytes (%) (Auto) 13.5 Monocytes (%) (Auto) 11.5 Eosinophils (%) (Auto) 2.2 Basophils (%) (Auto) 0.5 Neutrophils # (Auto) 6.7 Lymphocytes # (Auto) 1.2 Monocytes # (Auto) 1.1 Eosinophils # (Auto) 0.2 Basophils # (Auto) 0.0 CBC Comment AUTO DIFF Differential Comment AUTO DIFF CONFIRMED Platelet Estimate LOW Platelet Morphology Comment NORMAL Ovalocytes 1+ Haptoglobin 35 Prothrombin Time 11.7 Prothromb Time International 1.1 Ratio Activated Partial 26.6 Thromboplast Time Fibrinogen 183 Sodium Level 140 Potassium Level 3.7 Chloride Level 98 Carbon Dioxide Level 37.2 Anion Gap 5 Blood Urea Nitrogen 24 Creatinine 0.74 Estimat Glomerular Filtration 75 Rate Random Glucose 189 Calcium Level 8.3 Magnesium Level 1.9 Lactate Dehydrogenase 266 Imaging Last Impressions Chest X-Ray 09/27/16 0000 Signed Impressions: Service Date/Time: Tuesday, September 27, 2016 15:52 - CONCLUSION: 1. Mild worsening left lower lung zone atelectasis. Taz Loomis MD Catheter Placement X-Ray 09/26/16 0000 Signed Impressions: Service Date/Time: September 14:22 - CONCLUSION: Uncomplicated line placement as above. Taz Loomis MD Hepatobiliary Scan Nuclear Medicine 09/25/16 0000 Signed Impressions: Service Date/Time: Sunday, September 25, 2016 07:58 - CONCLUSION: There is no evidence for common duct obstruction. Andreas Ogden MD FACR Abdomen/Pelvis CT 09/23/16 0515 Signed Impressions: Service Date/Time: Friday, September 23, 2016 05:42 - CONCLUSION: 1. Abnormal bowel gas pattern with apparent inflammatory change and enhancement in the right upper quadrant the proximal small bowel and mid ileum. The findings are nonspecific. 2. Post surgical changes status post colonic resection. There is an ostomy in the right lower quadrant. 3. Anasarca. 4. The common bile duct appears prominent and measures up to 1 cm. Mandeep Abbasi MD Physical Exam HEENT: PERRL; normocephalic; atraumatic; no jaundice. CHEST: coarse rales CARDIAC: irr HR, + murmur ABDOMEN: Soft, nondistended, nontender; no hepatosplenomegaly; bowel sounds are present in all four quadrants. ileal conduit bag- clear urine no blood EXTREMITIES: No clubbing, cyanosis, or edema. SKIN: no rash; no jaundice. ecchymoses BUE SURVEY RESEARCHER: No focal deficits; alert and oriented times three. (Nubia Vaughan) Assessment and Plan Plan ASSESSMENT: - Elevated LFTs. Trending down. She reports long history of LFTs "fluctuating" but denies any known underlying liver disease such as cirrhosis. No ETOH. No family hx of liver disease. Hepatitis panel negative. Abdomen/Pelvis CT (09/23/16)---> 1. Abnormal bowel gas pattern with apparent inflammatory change and enhancement in the right upper quadrant the proximal small bowel and mid ileum. The findings are nonspecific. 2. Post surgical changes status post colonic resection. There is an ostomy in the right lower quadrant. 3. Anasarca. 4. The common bile duct appears prominent and measures up to 1 cm. HIDA (09/25/16)----> There is no evidence for common duct obstruction. Occasional nausea, mild abdominal discomfort- related to coughing. PAKO neg, ASMA neg, AFP not elevated, not alpha 1 antitrypsin deficient - Acute thrombocytopenia/coagulopathy, unclear etiology. Hematology following for the acute thrombocytopenia with elevated LDH and low haptoglobin, low fibrinogen. It is unclear at this time, if this is related to underlying liver disease vs hemolysis, TTP. She is being treated with steroids, FFP. s/p plasma exchange - Hematuria. HH stable S/P evaluation, recommended conservative management with correction of underlying coagulopathy. - Hx recurrent DVT/PE. Eliquis - Hx Bladder cancer, S/P radical cystectomy and ileal conduit urinary diversion in 1987- without evidence of recurrent disease - Hx Colon cancer, s/p resection without chemotherapy or radiation - COPD, Bronchitis, HTN, UTI per attending. PLAN: - ELIZA - So far liver w/u neg, LFTs trending down - await ceruloplasmin, AMA - Monitor LFTs - Supportive care - Further recommendations to follow based on results of above - Pt seen and examined by Dr. Guy and myself and this note is written on her behalf (Nubia Vaughan) Physician Comments seen, examined agree with above (Dana Guy MD) Nubia Vaughan Sep 28, 2016 14:06 Dana Guy MD Sep 28, 2016 16:04
[2016-09-28] MEDS: BUDESONIDE-FORMOTEROL 80/4.5 MCG INHALER INH SCH ×2 (14:27→21:44)
[2016-09-28] MEDS: LISINOPRIL 20 MG TAB PO SCH ×2 (14:28→21:43)
[2016-09-28] MEDS: ATENOLOL 50 MG TAB PO SCH (14:28)
[2016-09-28] MEDS: SODIUM CHLORIDE 0.9% FLUSH 10 ML FLUSH IV FLUSH SCH ×2 (16:39→21:44)
[2016-09-28] MEDS: MIRTAZAPINE 15 MG TAB PO SCH (21:41)
[2016-09-28] MEDS: MONTELUKAST SODIUM 10 MG TAB PO SCH (21:43)
[2016-09-28] MEDS ORDERED: POLYETHYLENE GLYCOL 17 GM PKG PO PRN (23:15)
[2016-09-29] VITALS (9 sets, daily range): BP systolic 128–170; BP diastolic 52–88; PULSE 74–100; RESP 17–20; TEMP 97.5–98.6; O2SAT 93–99
[2016-09-29] MEDS: MORPHINE SULFATE 4 MG/ML INJ IV PUSH PRN ×3 (00:19→23:37)
[2016-09-29] MEDS: LEVOTHYROXINE SODIUM 150 MCG TAB PO SCH (05:44)
[2016-09-29] MEDS: hydrALAZINE HCL 25 MG TAB PO SCH ×3 (05:44→22:31)
[2016-09-29] MEDS: INSULIN ASPART SUPPLEMENTAL SCALE SQ SCH ×4 (06:47→20:26)
[2016-09-29] MEDS: RESP: ALBUTEROL 2.5 MG/IPRATROPIUM 0.5 MG NEB (SCH) NEB ×4 (08:19→20:36)
[2016-09-29] MEDS: PARoxetine HCL 20 MG TAB PO SCH (09:02)
[2016-09-29] MEDS: BUDESONIDE-FORMOTEROL 80/4.5 MCG INHALER INH SCH ×2 (09:02→20:14)
[2016-09-29] MEDS: guaiFENesin E.R. 600 MG TAB PO SCH ×2 (09:02→20:14)
[2016-09-29] MEDS: CEFUROXIME AXETIL 500 MG TAB PO SCH (09:02)
[2016-09-29] MEDS: predniSONE 10 MG TAB PO SCH ×2 (09:02→20:16)
[2016-09-29] MEDS: MORPHINE SULFATE 15 MG CONTROLLED RELEASE TAB PO SCH ×2 (09:02→20:15)
[2016-09-29] MEDS: SODIUM CHLORIDE 0.9% FLUSH 10 ML FLUSH IV FLUSH SCH ×2 (09:06→20:16)
--- NOTE | 2016-09-29 10:17 | PD.ONC.PN ---
Subjective Subjective Remarks Afebrile overnight. Patient continues to have dyspnea, cough. Tolerating plasma exchange. Objective Data Date Time Temp Pulse Resp B/P Pulse Ox O2 Delivery O2 Flow Rate FiO2 09/29/16 09:07 Room Air 09/29/16 08:21 99 21 09/29/16 05:30 98.6 78 17 170/88 97 09/29/16 00:00 98.1 74 18 136/81 94 09/28/16 20:00 121 19 148/66 96 09/28/16 19:45 96 Nasal Cannula 1.00 09/28/16 16:00 98.5 108 24 106/70 98 09/28/16 14:40 17 09/28/16 14:38 92 Nasal Cannula 09/28/16 12:00 78 20 122/68 97 09/28/16 11:49 15 09/29/16 09/29/16 09/29/16 07:00 15:00 23:00 Intake Total 60 ml Output Total 875 ml 700 ml Balance -815 ml -700 ml Result Diagram: 09/28/16 1024 09/28/16 1025 Laboratory Results Laboratory Tests Test 09/28/16 09/28/16 09/28/16 10:24 10:25 17:49 White Blood Count 9.2 TH/MM3 Red Blood Count 3.71 MIL/MM3 Hemoglobin 11.4 GM/DL Hematocrit 35.0 % Mean Corpuscular Volume 94.4 FL Mean Corpuscular Hemoglobin 30.7 PG Mean Corpuscular Hemoglobin 32.6 % Concent Red Cell Distribution Width 15.6 % Platelet Count 70 TH/MM3 Mean Platelet Volume 8.6 FL Neutrophils (%) (Auto) 72.3 % Lymphocytes (%) (Auto) 13.5 % Monocytes (%) (Auto) 11.5 % Eosinophils (%) (Auto) 2.2 % Basophils (%) (Auto) 0.5 % Neutrophils # (Auto) 6.7 TH/MM3 Lymphocytes # (Auto) 1.2 TH/MM3 Monocytes # (Auto) 1.1 TH/MM3 Eosinophils # (Auto) 0.2 TH/MM3 Basophils # (Auto) 0.0 TH/MM3 CBC Comment AUTO DIFF Differential Comment AUTO DIFF CONFIRMED Platelet Estimate LOW Platelet Morphology Comment NORMAL Ovalocytes 1+ Haptoglobin 35 MG/DL Prothrombin Time 11.7 SEC Prothromb Time International 1.1 RATIO Ratio Activated Partial 26.6 SEC Thromboplast Time Fibrinogen 183 mg/dL Sodium Level 140 MEQ/L Potassium Level 3.7 MEQ/L Chloride Level 98 MEQ/L Carbon Dioxide Level 37.2 MEQ/L Anion Gap 5 MEQ/L Blood Urea Nitrogen 24 MG/DL Creatinine 0.74 MG/DL Estimat Glomerular Filtration 75 ML/MIN Rate Random Glucose 189 MG/DL Calcium Level 8.3 MG/DL Magnesium Level 1.9 MG/DL Lactate Dehydrogenase 266 U/L Blood Bank Comment Administered Medications Medications (Trade) Dose Ordered Sig/Jasmina Route PRN Reason Start Time Stop Time Status Last Admin Dose Admin Sodium Chloride (NS Flush) 2 ml BID IV FLUSH 09/23/16 09:00 09/29/16 09:06 Ondansetron HCl (Zofran Inj) 4 mg Q6H PRN IVP NAUSEA OR VOMITING 09/23/16 06:15 09/26/16 15:15 Morphine Sulfate (Morphine Inj) 2 mg Q3H PRN IV PUSH pain 6-10 09/23/16 06:15 09/29/16 00:19 Morphine Sulfate (Morphine Inj) 1 mg Q3H PRN IV PUSH pain 3-5 09/23/16 06:15 09/29/16 05:44 Atenolol (Tenormin) 50 mg DAILY PO 09/23/16 09:00 09/28/16 14:28 Benzonatate (Tessalon) 100 mg TID PRN PO COUGH 09/23/16 07:30 09/28/16 00:13 Budesonide/ Formoterol Fumarate (Symbicort 80-4.5 Mcg Inh) 2 puff Q12HR INH 09/23/16 09:00 09/29/16 09:02 Cefuroxime Axetil (Ceftin) 500 mg Q12HR PO 09/23/16 09:00 09/29/16 09:02 Hydralazine HCl (Apresoline) 25 mg Q8HR PO 09/23/16 14:00 09/29/16 05:44 Levothyroxine Sodium (Synthroid) 150 mcg DAILY@06 PO 09/23/16 07:39 09/29/16 05:44 Lisinopril (Prinivil) 20 mg Q12HR PO 09/23/16 09:00 09/28/16 21:43 Mirtazapine (Remeron) 45 mg HS PO 09/23/16 21:00 09/28/16 21:41 Montelukast Sodium (Singulair) 10 mg HS PO 09/23/16 21:00 09/28/16 21:43 Paroxetine HCl (Paxil) 30 mg DAILY PO 09/23/16 09:00 09/29/16 09:02 Morphine Sulfate (Oramorph Sr) 15 mg BID PO 09/23/16 10:00 09/29/16 09:02 Guaifenesin (Mucinex Er) 1,200 mg BID PO 09/25/16 21:00 09/29/16 09:02 Prednisone 10 mg 10 mg DAILY PO 09/27/16 09:00 09/29/16 09:02 Calcium Gluconate 3 gm/Sodium Chloride 180 ml @ 90 mls/hr Q24H IV 09/26/16 19:00 09/30/16 20:59 09/27/16 09:00 Sodium Chloride (NS 1000 ml Inj) 1,000 ml @ 0 mls/hr Q24H IV 09/26/16 19:15 10/01/16 19:14 09/27/16 09:00 Anticoagulant Citrate Dextose Yocasta A (Acd Formula Inj) 1,000 ml Q24H OTHER 09/26/16 19:15 09/30/16 19:16 09/27/16 09:00 Heparin Sodium (Porcine) (Heparin Inj) 5,000 units UNSCH PRN IV FLUSH FLUSH AFTER USING IV ACCESS 09/26/16 19:00 10/01/16 18:59 09/28/16 12:36 Diphenhydramine HCl (Benadryl Inj) 25 mg Q24H IV PUSH 09/26/16 19:00 09/30/16 19:01 09/28/16 09:50 Polyethylene Glycol (Miralax) 17 gm Q24H PRN PO CONSTIPATION 09/28/16 23:15 09/29/16 00:13 Objective Remarks GENERAL: Elderly female upright in bed. SKIN: Warm and dry. HEAD: Normocephalic. EYES: No injection or drainage. NECK: Supple, trachea midline. CARDIOVASCULAR: Regular rate and rhythm RESPIRATORY: diminished at bases. scattered rhonchi, not cleared with cough. GASTROINTESTINAL: Abdomen soft, non-tender, nondistended. EXTREMITIES: No cyanosis. moderate edema, bilateral lower extremities. NEUROLOGICAL: aox3. normal speech. moving extremities. Assessment/Plan Problem List: (1) Thrombocytopenia Status: Acute (2) COPD exacerbation Status: Acute (3) Hx of bladder cancer Status: Acute Assessment 86-year-old female with history of bladder cancer admitted with hematuria and thrombocytopenia Plan 1. Acute Thrombocytopenia- suspicious for TTP - Had incomplete FFP transfusion last night due to reaction - Haptoglobin low, LDH elevated and transaminitis - plasma exchange started 8.3 - ADAMTS-13 pending. - 09/27: LDH falling, platelet count marginally improved. continue plasma exchange --09/28: platelets improved to 70K, LDH fell. monitor. await ADAMS13. --09/29: monitor CBC, LDH, continue plasma exchange 2. Elevated Liver functions/ ? liver disease --elevated since april 2016 - Hepatitis panel negative - GI following - Elevated T. bili/Alk phosp levated and GGT elevated pointing towards biliary etiology - indirect bili is normal - no evidence of brisk hemolysis - Direct fracisco test negative 3. Coagulopathy/decreased fibrinogen due to Liver disease vs DIC - Received cryo and FFP - Fibrinogen up--now > 200 - Transfuse cryo to keep fibrinogen > 150 - Check daily INR Attending Statement The exam, history, and the medical decision-making described in the above note were completed with the assistance of the mid-level provider. I reviewed and agree with the findings presented. I attest that I had a [id number] encounter with the patient on the same day, and personally performed and documented my assessment and findings in the medical record. No bleeding. SOB stable, good o2 sat. Getting Echo. Platelet trending up. [id number] pending. Hemodynamically stable. Continue PLEX. Brandie Mathis Sep 29, 2016 10:17 Navjot Spivey MD Sep 29, 2016 11:01
[2016-09-29 10:58] LABS: AUTOMATED NEUTROPHIL # 5.9 TH/MM3 (1.8-7.7); BASOPHIL % 0.5 % (0.0-2.0); EOSINOPHIL # 0.2 TH/MM3 (0-0.4); EOSINOPHIL % 2.3 % (0.0-4.0); HEMATOCRIT 34.4 % (35.0-46.0); LYMPHOCYTE # 1.5 TH/MM3 (1.0-4.8); MEAN CELL VOLUME 93.8 FL (80.0-100.0); MEAN CORPUSCULAR HEMOGLOBIN 30.9 PG (27.0-34.0); MEAN CORPUSCULAR HGB CONC 32.9 % (32.0-36.0); MONO % 12.1 % (0.0-8.0); NEUT % 68.1 % (16.0-70.0); PLATELET COUNT 85 TH/MM3 (150-450); RED BLOOD COUNT 3.67 MIL/MM3 (4.00-5.30); RED CELL DISTRIBUTION WIDTH 15.1 % (11.6-17.2); WHITE BLOOD COUNT 8.7 TH/MM3 (4.0-11.0)
[2016-09-29 11:05] LABS: HEMO FLAGS AUTO DIFF
[2016-09-29 11:23] LABS: PROTHROMBIN TIME - PATIENT 11.4 SEC (9.8-11.6)
[2016-09-29 11:30] LABS: BICARBONATE 36.2 MEQ/L (21.0-32.0); POTASSIUM 3.6 MEQ/L (3.5-5.1)
--- NOTE | 2016-09-29 11:31 | HHI.PR ---
Subjective Remarks cough unchanged, congested more productive acuña sputum no fever no sob no cp no hematuria son at bsd (Linda Land) Objective Objective Results - Vital Signs Date Time Temp Pulse Resp B/P Pulse Ox O2 Delivery O2 Flow Rate FiO2 09/29/16 09:07 Room Air 09/29/16 08:21 99 21 09/29/16 05:30 98.6 78 17 170/88 97 09/29/16 00:00 98.1 74 18 136/81 94 09/28/16 20:00 121 19 148/66 96 09/28/16 19:45 96 Nasal Cannula 1.00 09/28/16 16:00 98.5 108 24 106/70 98 09/28/16 14:40 17 09/28/16 14:38 92 Nasal Cannula 09/28/16 12:00 78 20 122/68 97 09/28/16 11:49 15 I/O 09/28/16 09/28/16 09/28/16 09/29/16 09/29/16 09/29/16 07:00 15:00 23:00 07:00 15:00 23:00 Intake Total 240 ml 480 ml 480 ml 60 ml Output Total 450 ml 1455 ml 875 ml 700 ml Balance -210 ml 480 ml -975 ml -815 ml -700 ml Intake Oral 240 ml 480 ml 480 ml 60 ml Output Urine Total 450 ml 1455 ml 875 ml 700 ml # Voids 2 # Bowel Movements 0 1 (Linda Land) Result Diagram: 09/29/16 1010 09/29/16 1010 Imaging Last Impressions Abdomen/Pelvis CT 09/23/16 0515 Signed Impressions: Service Date/Time: Friday, September 23, 2016 05:42 - CONCLUSION: 1. Abnormal bowel gas pattern with apparent inflammatory change and enhancement in the right upper quadrant the proximal small bowel and mid ileum. The findings are nonspecific. 2. Post surgical changes status post colonic resection. There is an ostomy in the right lower quadrant. 3. Anasarca. 4. The common bile duct appears prominent and measures up to 1 cm. Mandeep Abbasi MD Chest X-Ray 09/23/16 4895 Signed Impressions: Service Date/Time: Friday, September 23, 2016 03:14 - CONCLUSION: No acute disease. Status post median sternotomy. Mandeep Abbasi MD Other Results Laboratory Tests Test 09/28/16 09/29/16 17:49 10:10 Blood Bank Comment White Blood Count 8.7 Red Blood Count 3.67 Hemoglobin 11.3 Hematocrit 34.4 Mean Corpuscular Volume 93.8 Mean Corpuscular Hemoglobin 30.9 Mean Corpuscular Hemoglobin 32.9 Concent Red Cell Distribution Width 15.1 Platelet Count 85 Mean Platelet Volume 8.8 Neutrophils (%) (Auto) 68.1 Lymphocytes (%) (Auto) 17.0 Monocytes (%) (Auto) 12.1 Eosinophils (%) (Auto) 2.3 Basophils (%) (Auto) 0.5 Neutrophils # (Auto) 5.9 Lymphocytes # (Auto) 1.5 Monocytes # (Auto) 1.0 Eosinophils # (Auto) 0.2 Basophils # (Auto) 0.0 CBC Comment AUTO DIFF Prothrombin Time 11.4 Prothromb Time International 1.0 Ratio Fibrinogen 217 Sodium Level 139 Potassium Level 3.6 Chloride Level 99 Carbon Dioxide Level 36.2 Anion Gap 4 Blood Urea Nitrogen 25 Creatinine 0.74 Estimat Glomerular Filtration 75 Rate Random Glucose 206 Calcium Level 8.1 Lactate Dehydrogenase 261 (Linda Land) ROS General: No: Fatigue, Weakness HEENT: No: Sore Throat, Dysphagia Cardiac: No: Chest Pain, Edema, Palpitations Pulmonary: Cough, Wheezing, Other (sputum) GI: No: Abdominal Pain, BM, Diarrhea, N/V /FAMILY LAW SPECIALIST: No: Dysuria, Urgency Neuro/MS: No: Lightheaded, Confusion Psych: No: Anxiety, Depression Skin: No: Itching, Rash (Linda Land) Physical Exam Physical Exam GENERAL: This is a well-nourished, well-developed patient, in no apparent distress. SKIN: No rashes, ecchymoses or lesions. Cool and dry. HEAD: Atraumatic. Normocephalic. No temporal or scalp tenderness. EYES: Pupils equal round and reactive. Extraocular motions intact. No scleral icterus. No injection or drainage. ENT: Nose without bleeding, purulent drainage or septal hematoma. Throat without erythema, tonsillar hypertrophy or exudate. Uvula midline. Airway patent. NECK: Trachea midline. No JVD or lymphadenopathy. Supple, nontender, no meningeal signs. CARDIOVASCULAR: Regular rate and rhythm without murmurs, gallops, or rubs. RESPIRATORY: coarse ronchi throughout : ileal conduit with light maria m urine. GASTROINTESTINAL: Abdomen soft, non-tender, nondistended. No hepato-splenomegaly , or palpable masses. No guarding. MUSCULOSKELETAL: Extremities without clubbing, cyanosis, or edema. No joint tenderness, effusion, or edema noted. No calf tenderness. Negative Homans sign bilaterally. NEUROLOGICAL: Awake and alert. Cranial nerves II through XII intact. Motor and sensory grossly within normal limits. Five out of 5 muscle strength in all muscle groups. Normal speech. (Linda Land) Urinary Catheter: No (Linda Land) Vascular Central Line Catheter: No (Linda Land) A/P Diagnosis: (1) Hematuria (2) Anticoagulated by anticoagulation treatment (3) Thrombocytopenia (4) COPD exacerbation (5) Breast cancer, left (6) Hx pulmonary embolism (7) Hx of deep venous thrombosis (8) COPD with exacerbation (9) HTN (hypertension) (10) Bronchitis (11) Hx of bladder cancer (12) UTI (urinary tract infection) (13) Hyperglycemia Assessment and Plan 86-year-old elderly white female recently presents to ED with hematuria x 3 episodes. Hx of bladder cancer, had cystectomy. Pt. takes Eliquis. Was noted with thrombocytopenia, platelets trending down. Hematuria -Urology input appreciated, no further recommendations. Recommends to correct coagulopathy. Pt can f/u annually -HH stable, hematuria resolving UTI -Ent. faecium -repeat UC today Thrombocytopenia-susp. TTP -FFP given yesterday -ADAMTS 13 pending -appreciate hematology input- -PPE tx started 09/26, plans for 5 treatments -platelets improving 85, LDH 261, Haptoglobin 35 Elevated LFTs Elevated T. bili Elevated Alk phosph -GI consulted, input appreciate. Liver work up in progress. -HIDA scan done, no acute findings Recent admission for COPD exacerbation, with bronchitis- cough remains, not improving. -Continue PO steroids -Continue DuoNeb's Continue with Tessalon when necessary Mucinex 600 mg by mouth twice a day -continues with cough, diffuse ronchi. -CT chest today, consult pulmonology -DC Ceftin, start Cefepime -BC, UC today Mild CHF -CXR mild worsening left lower zone -diuresing well after IV lasix, will continue Lasix 20 mg po daily for a few days -BNP mildly elevated, 170 -2D echo pending History DVT and PE Continue to hold Eliquis until further evaluation for thrombocytopenia. Hypertension, uncontrolled better controlled Continue home medications -continue PRN BP meds Left breast cancer, recently diagnosed. Patient due to have lumpectomy with Dr. Schroeder in September. She is also to have radiation Prior history of bladder cancer, neuroendocrine malignancy Patient to follow-up with radiation oncology as outpatient when stable Recent EGD with dilatation, their concern the patient continues to cough and may be choking on food Swallow evaluation done, recommendations noted. -No signs and symptoms of aspiration noted Hyperglycemia, likely secondary to steroids -Continue with low-dose insulin for sliding scale, blood glucose elevated secondary to steroids. Inc. activity, ok to ambulate SCDs DVT prophylaxis Labs in am Condition guarded Discussed with RN Discussed with patient Discussed with Dr. Crenshaw This patient was seen by myself and Dr. Crenshaw, this note is written on her behalf (Linda Land) Assessment and Plan pt seen and examined with family member at bedside labs reviewed rad data reviewed meds reviewed dw pt and family dw rn dw safety and health consultant about plan of care plan for ct scan chest ua with refex sudy abx empirically after blood culture cond guarded (Ekaterina Crenshaw MD) Problem Qualifiers (1) Hematuria: Qualified Code: R31.0 - Gross hematuria (2) Breast cancer, left: Qualified Code: C50.912 - Malignant neoplasm of left female breast, unspecified estrogen receptor status, unspecified site of breast (3) HTN (hypertension): Qualified Code: I10 - Essential hypertension (4) UTI (urinary tract infection): Qualified Code: N39.0 - Urinary tract infection with hematuria, site unspecified Linda Land Sep 29, 2016 11:31 Ekaterina Crenshaw MD Sep 29, 2016 12:16
[2016-09-29] MEDS: ANTICOAGULANT CITRATE DEXTROSE SOLN-A 1L OTHER SCH (11:45)
[2016-09-29] MEDS: CALCIUM GLUCONATE INJ 3 GM in SODIUM CHLOR 0.9% 250 ML INJ 150 ML IV SCH (11:45)
[2016-09-29] MEDS: diphenhydrAMINE HCL 50 MG/ML VIAL IV PUSH SCH (11:45)
[2016-09-29] MEDS: SODIUM CHLOR 0.9% 1000 ML INJ 1,000 ML IV SCH (11:45)
[2016-09-29 11:46] LABS: BANDS 2 % (0-6); MYELOCYTES 1 % (0-0); NEUTROPHIL # MANUAL DIFF 6.8 TH/MM3 (1.8-7.7); OVALOCYTES 1+ (NORMAL); POLYS (SEG NEUTROPHILS) 75 % (16-70); WBC DIFF SAMPLE 100
[2016-09-29 11:47] LABS: PLATELET ESTIMATE SMEAR LOW (NORMAL); PLATELET MORPHOLOGY NORMAL (NORMAL); SCAN/DIFF FINAL DIFF MANUAL
[2016-09-29] MEDS ORDERED: VANCOMYCIN INJ 1,000 MG in SODIUM CHLOR 0.9% 250 ML INJ 250 ML IV ONE (13:00)
[2016-09-29] MEDS: CEFEPIME INJ 1,000 MG in SODIUM CHLORIDE 0.9% INJ 100 ML IV SCH (14:27)
[2016-09-29] MEDS: HEPARIN SODIUM - 10,000 UNITS/ML 1ML VIAL IV FLUSH PRN (14:30)
--- NOTE | 2016-09-29 14:30 | ECHRPT ---
Indication: SHORTNESS OF BREATH CONCLUSIONS The left ventricular systolic function is hyperdynamic with an estimated ejection fraction in the ra nge of 65- 70%. Normal left ventricular size. Mild concentric left ventricular hypertrophy; moderate focal hypertrophy of the basal septum. The left atrial size is moderately dilated. Mild mitral valve regurgitation. 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 There appears to be 2 jets of the aortic insufficiency with a pressure 1/2 t 364. There is mild to moderate tricuspid valve regurgitation. There is estimated mild pulmonary hypertension present (range 40-50 mmHg). BP: 170 / 88 HR: 78 Rhythm: Sinus MEASUREMENTS (Male / Female) Normal Values Technical Quality:Fair 2D ECHO LV Diastolic Diameter PLAX 4.3 cm 4.2 - 5.9 / 3.9 - 5.3 cm LV Systolic Diameter PLAX 3.0 cm IVS Diastolic Thickness 1.0 cm 0.6 - 1.0 / 0.6 - 0.9 cm LVPW Diastolic Thickness 1.0 cm 0.6 - 1.0 / 0.6 - 0.9 cm LV Relative Wall Thickness 0.5 LVOT Diameter 2.1 cm Aortic Root Diameter 2.9 cm LA Systolic Diameter LX 3.3 cm 3.0 - 4.0 / 2.7 - 3.8 cm LA Volume Index 54.2 cm/m 16 - 28 cm/m M-MODE AV Cusp Separation MM 1.4 cm DOPPLER AV Peak Velocity 320.0 cm/s AV Peak Gradient 41.0 mmHg AV Mean Gradient 24.0 mmHg AV Velocity Time Integral 63.5 cm AI Peak Velocity 465.0 cm/s AI Peak Gradient 86.5 mmHg AI Pressure Half Time 364.0 ms LVOT Peak Velocity 84.2 cm/s LVOT Peak Gradient 2.8 mmHg LVOT Velocity Time Integral 20.3 cm LVOT Cardiac Index 3214.0 cm/minm AV Area Cont Eq vti 1.1 cm AV Area Cont Eq pk 0.9 cm Mitral E Point Velocity 87.9 cm/s Mitral A Point Velocity 59.2 cm/s Mitral E to A Ratio 1.5 LV E' Lateral Velocity 13.5 cm/s Mitral E to LV E' Lateral Ratio 6.5 LV E' Septal Velocity 6.9 cm/s Mitral E to LV E' Septal Ratio 12.7 TR Peak Velocity 280.0 cm/s TR Peak Gradient 31.4 mmHg PV Peak Velocity 55.6 cm/s PV Peak Gradient 1.2 mmHg FINDINGS LEFT VENTRICLE The left ventricular systolic function is hyperdynamic with an estimated ejection fraction in the ra nge of 65- 70%. Normal left ventricular size. Mild concentric left ventricular hypertrophy. No regional wall motion abnormalities are present. Left ventricular diastolic function parameters are normal. Mild paradoxical septal motion probably 2nd to OHS. RIGHT VENTRICLE Normal right ventricular size and systolic function. LEFT ATRIUM The left atrial size is moderately dilated. RIGHT ATRIUM The right atrial size is normal. ATRIAL SEPTUM Normal atrial septal thickness without atrial level shunting by limited color doppler interrogation. AORTA The aortic root and proximal ascending aorta are normal in size on limited imaging. MITRAL VALVE Structurally normal mitral valve. Mild mitral valve regurgitation. 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 There appears to be 2 jets of the aortic insufficiency with a pressure 1/2 t 364. Mildly elevated aortic valve gradient, 24 mmHg mean. TRICUSPID VALVE Structurally normal tricuspid valve. There is mild to moderate tricuspid valve regurgitation. There is estimated mild pulmonary hypertension present (range 40-50 mmHg). PULMONARY VALVE The pulmonary valve is not well visualized. VESSELS The inferior vena cava is normal in size. PERICARDIUM No pericardial effusion. Rios Morales MD (Electronically Signed) Final Date:29 September 2016 14:29
--- NOTE | 2016-09-29 16:14 | RADRPT ---
EXAM DATE/TIME: 09/29/2016 15:50 [facility] COMPARISON: No previous studies available for comparison. INDICATIONS : Shortness of breath. RADIATION DOSE: 5.1 CTDIvol (mGy) MEDICAL HISTORY : Cardiovascular disease. Carcinoma, bladder. Hypertension. COPD,CHF. SURGICAL HISTORY : Appendectomy. Cholecystectomy. ENCOUNTER: Initial ACUITY: 1 day PAIN SCALE: 3/10 LOCATION: Bilateral chest TECHNIQUE: Volumetric scanning of the chest was performed. Using automated exposure control and adjustment of t he mA and/or kV according to patient size, radiation dose was kept as low as reasonably achievable to obtain optimal diagnostic quality images. DICOM format image data is available electronically for r eview and comparison. Follow-up recommendations for incidentally detected pulmonary nodules are based at a minimum on nodul e size and patient risk factors according to Fleischner Society Guidelines. FINDINGS: There is a small left-sided pleural effusion, slightly increased from September [address] No right pl eural effusion. There is minimal basal atelectasis. The esophagus is dilated throughout most of its course characteristic of an esophageal motility disor hanane. Heart size is enlarged. There is previous median sternotomy and aortic valve replacement. No per icardial effusion. No adenopathy. Upper abdomen reveals a dilatation of the stomach and proximal duodenum with anasarca and some free f luid. There is constipation. CONCLUSION: 1. Small left pleural effusion slightly increased from September 23. There is basal atelectasis and scarri ng. 2. Postoperative median sternotomy and aortic valve replacement. Right central line tip in right atri um. 3. 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 4. Mild anasarca, especially in the upper abdominal region with dilatation of the visualized stomach and proximal small bowel and mild ascites. Leonel Dietz MD on September 29, 2016 at 16:07 Board Certified Radiologist. This report was verified electronically.
[2016-09-29] MEDS: FUROSEMIDE 20 MG TAB PO SCH (16:26)
[2016-09-29] MEDS: ATENOLOL 50 MG TAB PO SCH (16:26)
[2016-09-29] MEDS: LISINOPRIL 20 MG TAB PO SCH ×2 (16:26→20:17)
[2016-09-29 18:12] LABS: BLOOD, URINE NEG (NEG); COMMENT (UR) CULT NOT INDICATED; CULTURE IF INDICATED CULT NOT INDICATED; GLUCOSE,URINE NEG (NEG); KETONE, URINE NEG (NEG); MUCUS URINE FEW /lpf (OCC); NITRITE,URINE NEG (NEG); PH, URINE 6.5 (5.0-8.5); URINE COLOR YELLOW (YELLW/STRAW)
[2016-09-29] MEDS: MIRTAZAPINE 15 MG TAB PO SCH (20:14)
[2016-09-29] MEDS: MONTELUKAST SODIUM 10 MG TAB PO SCH (20:15)
[2016-09-29] MEDS: SODIUM CHLORIDE 0.9% FLUSH 10 ML FLUSH IV FLUSH PRN (23:38)
[2016-09-29 23:53] LABS: MITOCHONDRIAL ABS LESS THAN 20.0 U (())
[2016-09-30] MEDS: CEFEPIME INJ 1,000 MG in SODIUM CHLORIDE 0.9% INJ 100 ML IV SCH ×2 (02:08→13:02)
[2016-09-30] MEDS: SODIUM CHLORIDE 0.9% FLUSH 10 ML FLUSH IV FLUSH PRN ×3 (02:08→20:20)
[2016-09-30 04:00] VITALS: BP 121/67; PULSE 79; RESP 18; TEMP 97.2; O2SAT 96
[2016-09-30] MEDS: LEVOTHYROXINE SODIUM 150 MCG TAB PO SCH (05:57)
[2016-09-30] MEDS: hydrALAZINE HCL 25 MG TAB PO SCH ×3 (05:57→22:24)
[2016-09-30] MEDS: INSULIN ASPART SUPPLEMENTAL SCALE SQ SCH ×4 (05:58→20:13)
[2016-09-30 06:51] LABS: AUTOMATED NEUTROPHIL # 7.3 TH/MM3 (1.8-7.7); BASOPHIL % 0.5 % (0.0-2.0); EOSINOPHIL # 0.2 TH/MM3 (0-0.4); EOSINOPHIL % 1.6 % (0.0-4.0); HEMATOCRIT 31.7 % (35.0-46.0); LYMPH % 10.3 % (9.0-44.0); MEAN CELL VOLUME 94.4 FL (80.0-100.0); MEAN CORPUSCULAR HEMOGLOBIN 31.1 PG (27.0-34.0); MONO % 9.8 % (0.0-8.0); NEUT % 77.8 % (16.0-70.0); PLATELET COUNT 89 TH/MM3 (150-450); RED BLOOD COUNT 3.36 MIL/MM3 (4.00-5.30); RED CELL DISTRIBUTION WIDTH 15.1 % (11.6-17.2); WHITE BLOOD COUNT 9.4 TH/MM3 (4.0-11.0)
[2016-09-30 06:55] LABS: HEMO FLAGS AUTO DIFF
[2016-09-30 08:00] VITALS: BP 119/60; PULSE 84; RESP 18; TEMP 98.3; O2SAT 96
--- NOTE | 2016-09-30 08:01 | MB ---
cc: SHEKHAR CRENSHAW JOHN DATE OF CONSULTATION: 09/29/2016 REASON FOR CONSULTATION COPD and respiratory distress. HISTORY OF PRESENT ILLNESS This is an 86-year-old lady with a past history of COPD, coronary artery disease, and bladder cancer status post cystectomy. She had been admitted with complaints of having blood in her ileal pouch associated with lower abdominal pain. The patient has a past history of bladder cancer and also recently diagnosed with left breast CA and due to undergo lumpectomy this month. The patient was discharged recently following treatment for an acute exacerbation of bronchitis and had been on antibiotics and oral steroids. However, she became more short of breath and had some blood in the ileal conduit bag and thus seen in the emergency room. She was diagnosed to have pneumonia and thus admitted. A chest x-ray done this week demonstrated left basilar atelectasis and/or pneumonia. The patient has no fevers or chills. She has a cough with a little whitish mucus. She denies any nausea or vomiting but does have some lower abdominal pains. She also has had some leg swelling. PAST MEDICAL HISTORY 1. As mentioned above is significant for bladder cancer with cystectomy and recurrent neuroendocrine carcinoma. 2. Diagnosed to have left breast carcinoma. 3. 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 4. TIAs. 5. Hyperlipidemia. 6. Asthma. 7. Coronary artery disease. 8. Arthritis. 9. Anxiety disorder. 10.Hyypertension. PAST SURGICAL HISTORY 1. CABG x1. 2. replacement in 2009. 3. Appendectomy. 4. Cholecystectomy. 5. Cystectomy with ileal conduit. 6. Tonsillectomy remotely. 7. Partial bowel resection. 8. Lymph node resection. HABITS The patient does not smoke. She has a history of secondhand smoke exposure. No history of alcohol use. FAMILY HISTORY Noncontributory. MEDICATIONS 1. Lisinopril 20 mg a day. 2. Hydralazine 25 mg t.i.d. 3. Ceftin 500 mg b.i.d. 4. Symbicort 160/4.5, two puffs b.i.d. 5. Prednisone 10 mg tapered dose. REVIEW OF SYSTEMS The patient has gained weight. She has dizziness. She has postnasal drip. She has cough and wheezing. She has some abdominal discomfort. She has joint pains of her extremities. She has depression and anxiety. ALLERGIES 1. CODEINE. 2. AMBIEN. 3. DRAMAMINE. PHYSICAL EXAMINATION GENERAL: This is an averagely built elderly lady who is alert and pale and mildly dyspneic. VITAL SIGNS: Blood pressure 165/70, pulse 100, respirations 22, temperature 97.1. HEENT: Head normocephalic. Pupils are reactive and equal. Tongue is moist. Throat is clear. Nasal mucosa is injected. NECK: No bruits, thyroid enlargement or lymphadenopathy. CHEST: Equal movements with decreased excursions. Breath sounds diminished at the bases. Occasional crackles at the lung bases. HEART: Heart sounds are regular, S1 and S2. No murmur. ABDOMEN: Soft, protuberant. Bowel sounds are active. No organomegaly. EXTREMITIES: No lesions. Mild peripheral edema. Decreased pulses. NEUROLOGIC: Reflexes 1+. No gross motor deficits. Cranial nerves grossly intact. SKIN: No lesions observed. IMPRESSION 1. COPD and acute exacerbation. 2. Basilar atelectasis with possible early pneumonia. 3. Thrombocytopenia 4. History of bladder cancer status post cystectomy. 5. Left breast cancer. 6. Neuroendocrine tumor. 7. Hypertension. PLAN The patient has been placed on 2 liters of oxygen by nasal cannula. She has been started on nebulized DuoNeb solution q.i.d. Also advised her to start on Acapella q.i.d. and incentive spirometry every 2 hours. Prednisone increased to [address] scan of the chest will be obtained. The patient will be continued on cefepime one gram IV b.i.d. and vancomycin one gram IV daily. Symbicort will be continued at 160/4.5, two puffs b.i.d. Blood gas study will be obtained. Will follow the case. Dr. Crenshaw, thank you for this consultation. MD JOSEPHINE Moore/[place]ARFIELD /11:19 PM /7:29 AM
[2016-09-30 08:44] LABS: BANDS 9 % (0-6); METAMYELOCYTES 1 % (0-1); NEUTROPHIL # MANUAL DIFF 8.1 TH/MM3 (1.8-7.7); OVALOCYTES 1+ (NORMAL); PLATELET ESTIMATE SMEAR LOW (NORMAL); PLATELET MORPHOLOGY NORMAL (NORMAL); POLYS (SEG NEUTROPHILS) 76 % (16-70); SCAN/DIFF FINAL DIFF MANUAL; TEARDROP RBCS 1+ (NORMAL); WBC DIFF SAMPLE 100
[2016-09-30] MEDS: LISINOPRIL 20 MG TAB PO SCH ×2 (09:00→20:13)
[2016-09-30] MEDS: RESP: ALBUTEROL 2.5 MG/IPRATROPIUM 0.5 MG NEB (SCH) NEB ×4 (09:27→19:58)
[2016-09-30 09:29] VITALS: O2SAT 97
[2016-09-30] MEDS: guaiFENesin E.R. 600 MG TAB PO SCH ×2 (09:34→20:11)
[2016-09-30] MEDS: PARoxetine HCL 20 MG TAB PO SCH (09:34)
[2016-09-30] MEDS: predniSONE 10 MG TAB PO SCH ×2 (09:34→20:12)
[2016-09-30] MEDS: BUDESONIDE-FORMOTEROL 80/4.5 MCG INHALER INH SCH ×2 (09:34→20:14)
[2016-09-30] MEDS: MORPHINE SULFATE 15 MG CONTROLLED RELEASE TAB PO SCH ×2 (09:35→20:13)
[2016-09-30] MEDS: SODIUM CHLORIDE 0.9% FLUSH 10 ML FLUSH IV FLUSH SCH ×2 (09:36→20:14)
--- NOTE | 2016-09-30 11:55 | PD.ONC.PN ---
Subjective Subjective Remarks Afebrile overnight. Very tired today, but cough improved. last day of plasma exchange today. Objective Data Date Time Temp Pulse Resp B/P Pulse Ox O2 Delivery O2 Flow Rate FiO2 09/30/16 09:29 97 09/30/16 08:14 Room Air 09/30/16 08:00 98.3 84 18 119/60 96 09/30/16 04:00 97.2 79 18 121/67 96 09/29/16 23:00 98.2 85 19 145/68 95 09/29/16 22:30 74 128/60 09/29/16 20:38 95 Nasal Cannula 2.00 09/29/16 20:29 Room Air 09/29/16 20:00 98.2 83 19 129/52 93 09/29/16 16:00 97.5 100 18 142/56 96 09/29/16 12:00 98.2 86 20 144/64 93 09/30/16 09/30/16 09/30/16 07:00 15:00 23:00 Intake Total 115 ml Output Total 800 ml Balance -685 ml Result Diagram: 09/30/16 0616 09/29/16 1010 Laboratory Results Laboratory Tests Test 09/29/16 09/29/16 09/30/16 17:45 20:33 06:16 Urine Color YELLOW Urine Turbidity CLEAR Urine pH 6.5 Urine Specific [place] 1.011 Urine Protein NEG mg/dL Urine Glucose (UA) NEG mg/dL Urine Ketones NEG mg/dL Urine Occult Blood NEG Urine Nitrite NEG Urine Bilirubin NEG Urine Urobilinogen LESS THAN 2.0 MG/DL Urine Leukocyte Esterase NEG Urine RBC 1 /hpf Urine WBC 3 /hpf Urine Mucus FEW /lpf Microscopic Urinalysis Comment CULT NOT INDICATED Blood Bank Comment White Blood Count 9.4 TH/MM3 Red Blood Count 3.36 MIL/MM3 Hemoglobin 10.5 GM/DL Hematocrit 31.7 % Mean Corpuscular Volume 94.4 FL Mean Corpuscular Hemoglobin 31.1 PG Mean Corpuscular Hemoglobin 33.0 % Concent Red Cell Distribution Width 15.1 % Platelet Count 89 TH/MM3 Mean Platelet Volume 8.1 FL Neutrophils (%) (Auto) 77.8 % Lymphocytes (%) (Auto) 10.3 % Monocytes (%) (Auto) 9.8 % Eosinophils (%) (Auto) 1.6 % Basophils (%) (Auto) 0.5 % Neutrophils # (Auto) 7.3 TH/MM3 Lymphocytes # (Auto) 1.0 TH/MM3 Monocytes # (Auto) 0.9 TH/MM3 Eosinophils # (Auto) 0.2 TH/MM3 Basophils # (Auto) 0.0 TH/MM3 CBC Comment AUTO DIFF Differential Total Cells 100 Counted Neutrophils % (Manual) 76 % Band Neutrophils % 9 % Lymphocytes % 7 % Monocytes % 7 % Neutrophils # (Manual) 8.1 TH/MM3 Metamyelocytes 1 % Differential Comment FINAL DIFF MANUAL Platelet Estimate LOW Platelet Morphology Comment NORMAL Tear Drop Cells 1+ Ovalocytes 1+ Lactate Dehydrogenase 270 U/L Culture Results Microbiology Date/Time Procedure Status Source Growth 09/29/16 09:15 Gram Stain - Final Resulted Sputum Expectorated Sputum 09/29/16 09:15 Sputum Culture Resulted Sputum Expectorated Sputum Pending 09/29/16 20:30 Aerobic Blood Culture - Preliminary Resulted Blood Peripheral NO GROWTH IN 1 DAY 09/29/16 20:30 Anaerobic Blood Culture - Preliminary Resulted Blood Peripheral NO GROWTH IN 1 DAY 09/29/16 20:35 Aerobic Blood Culture - Preliminary Resulted Blood Peripheral NO GROWTH IN 1 DAY 09/29/16 20:35 Anaerobic Blood Culture - Preliminary Resulted Blood Peripheral NO GROWTH IN 1 DAY Administered Medications Medications (Trade) Dose Ordered Sig/Jasmina Route PRN Reason Start Time Stop Time Status Last Admin Dose Admin Sodium Chloride (NS Flush) 2 ml UNSCH PRN IV FLUSH FLUSH AFTER USING IV ACCESS 09/23/16 06:15 09/30/16 03:39 Sodium Chloride (NS Flush) 2 ml BID IV FLUSH 09/23/16 09:00 09/30/16 09:36 Ondansetron HCl (Zofran Inj) 4 mg Q6H PRN IVP NAUSEA OR VOMITING 09/23/16 06:15 09/26/16 15:15 Morphine Sulfate (Morphine Inj) 2 mg Q3H PRN IV PUSH pain 6-10 09/23/16 06:15 09/29/16 00:19 Morphine Sulfate (Morphine Inj) 1 mg Q3H PRN IV PUSH pain 3-5 09/23/16 06:15 09/29/16 23:37 Atenolol (Tenormin) 50 mg DAILY PO 09/23/16 09:00 09/29/16 16:26 Benzonatate (Tessalon) 100 mg TID PRN PO COUGH 09/23/16 07:30 09/28/16 00:13 Budesonide/ Formoterol Fumarate (Symbicort 80-4.5 Mcg Inh) 2 puff Q12HR INH 09/23/16 09:00 09/30/16 09:34 Hydralazine HCl (Apresoline) 25 mg Q8HR PO 09/23/16 14:00 09/30/16 05:57 Levothyroxine Sodium (Synthroid) 150 mcg DAILY@06 PO 09/23/16 07:39 09/30/16 05:57 Lisinopril (Prinivil) 20 mg Q12HR PO 09/23/16 09:00 09/29/16 20:17 Mirtazapine (Remeron) 45 mg HS PO 09/23/16 21:00 09/29/16 20:14 Montelukast Sodium (Singulair) 10 mg HS PO 09/23/16 21:00 09/29/16 20:15 Paroxetine HCl (Paxil) 30 mg DAILY PO 09/23/16 09:00 09/30/16 09:34 Morphine Sulfate (Oramorph Sr) 15 mg BID PO 09/23/16 10:00 09/30/16 09:35 Guaifenesin 1200 mg 1,200 mg BID PO 09/25/16 21:00 09/30/16 09:34 Calcium Gluconate 3 gm/Sodium Chloride 180 ml @ 90 mls/hr Q24H IV 09/26/16 19:00 09/30/16 20:59 09/29/16 11:45 Sodium Chloride (NS 1000 ml Inj) 1,000 ml @ 0 mls/hr Q24H IV 09/26/16 19:15 10/01/16 19:14 09/29/16 11:45 Anticoagulant Citrate Dextose Yocasta A (Acd Formula Inj) 1,000 ml Q24H OTHER 09/26/16 19:15 09/30/16 19:16 09/29/16 11:45 Heparin Sodium (Porcine) (Heparin Inj) 5,000 units UNSCH PRN IV FLUSH FLUSH AFTER USING IV ACCESS 09/26/16 19:00 10/01/16 18:59 09/29/16 14:30 Diphenhydramine HCl (Benadryl Inj) 25 mg Q24H IV PUSH 09/26/16 19:00 09/30/16 19:01 09/29/16 11:45 Furosemide (Lasix) 20 mg DAILY PO 09/29/16 09:00 09/29/16 16:26 Polyethylene Glycol 17 gm 17 gm Q24H PRN PO CONSTIPATION 09/28/16 23:15 09/29/16 00:13 Cefepime HCl/ Sodium Chloride (Maxipime Inj/NS Inj) 100 ml @ 200 mls/hr Q12H IV 09/29/16 14:00 09/30/16 02:08 Prednisone (Deltasone) 10 mg BID PO 09/29/16 21:00 09/30/16 09:34 Objective Remarks GENERAL: Elderly female supine in bed. SKIN: Warm and dry. HEAD: Normocephalic. EYES: No injection or drainage. NECK: Supple, trachea midline. CARDIOVASCULAR: +S1/S2 RESPIRATORY: diminished at bases. coarse scattered rhonchi. GASTROINTESTINAL: Abdomen soft, non-tender, nondistended. EXTREMITIES: No cyanosis NEUROLOGICAL: awake and alert, normal speech. moving all extremities. Assessment/Plan Problem List: (1) Thrombocytopenia Status: Acute (2) COPD exacerbation Status: Acute (3) Hx of bladder cancer Status: Acute Assessment 86-year-old female with history of bladder cancer admitted with hematuria and thrombocytopenia Plan 1. Acute Thrombocytopenia- suspicious for TTP - Had incomplete FFP transfusion last night due to reaction - Haptoglobin low, LDH elevated and transaminitis - plasma exchange started 8.3 - ADAMTS-13 pending. - 09/27: LDH falling, platelet count marginally improved. continue plasma exchange --09/28: platelets improved to 70K, LDH fell. monitor. await ADAMS13. --09/29: monitor CBC, LDH, continue plasma exchange --09/30: platelets continuing to improved today 2. Elevated Liver functions/ ? liver disease --elevated since april 2016 - Hepatitis panel negative - GI following - Elevated T. bili/Alk phosp levated and GGT elevated pointing towards biliary etiology - indirect bili is normal - no evidence of brisk hemolysis - Direct fracisco test negative 3. Coagulopathy/decreased fibrinogen due to Liver disease vs DIC - Received cryo and FFP - Fibrinogen up--now > 200 - Transfuse cryo to keep fibrinogen > 150 - Check daily INR 4. COPD/Wheezing. --D'veliz following recommended IS, Acapella, Prednisone BID, Duonebs --CT chest shows small pleural effusion, atelectasis, scarring. Attending Statement The exam, history, and the medical decision-making described in the above note were completed with the assistance of the mid-level provider. I reviewed and agree with the findings presented. I attest that I had a [id number] encounter with the patient on the same day, and personally performed and documented my assessment and findings in the medical record. Feels she is better, no more hematuria, hematuria frightening when first admitted. Still has cough, tolerating pheresis, plans to walk this evening. Children bring food from home. Noted TTP increase LDH, decrease haptoglobin, thrombocytopenia, ELIZA negative Anemia worsen, fibrinogen low initially. Adamst 13 normal. Anticipate DC pheresis after tomorrow. Brandie Mathis Sep 30, 2016 11:55 Donna Meza MD Sep 30, 2016 19:30
[2016-09-30 12:00] VITALS: BP 142/65; PULSE 83; RESP 18; TEMP 97.7; O2SAT 97
[2016-09-30] MEDS: MORPHINE SULFATE 4 MG/ML INJ IV PUSH PRN ×2 (14:27→20:20)
[2016-09-30] MEDS: diphenhydrAMINE HCL 50 MG/ML VIAL IV PUSH SCH (15:06)
[2016-09-30] MEDS: SODIUM CHLOR 0.9% 1000 ML INJ 1,000 ML IV SCH (15:07)
[2016-09-30] MEDS: CALCIUM GLUCONATE INJ 3 GM in SODIUM CHLOR 0.9% 250 ML INJ 150 ML IV SCH (15:07)
[2016-09-30] MEDS: ANTICOAGULANT CITRATE DEXTROSE SOLN-A 1L OTHER SCH (15:07)
--- NOTE | 2016-09-30 15:33 | HHI.GIFU ---
Subjective Remarks REsting in bed, says she is feeling much better. Says she is eating very well and her daughter brings her food. No bleeding, abd pain. Objective Vitals I&O Vital Signs Date Time Temp Pulse Resp B/P Pulse Ox O2 Delivery O2 Flow Rate FiO2 09/30/16 09:29 97 09/30/16 08:14 Room Air 09/30/16 08:00 98.3 84 18 119/60 96 09/30/16 04:00 97.2 79 18 121/67 96 09/29/16 23:00 98.2 85 19 145/68 95 09/29/16 22:30 74 128/60 09/29/16 20:38 95 Nasal Cannula 2.00 09/29/16 20:29 Room Air 09/29/16 20:00 98.2 83 19 129/52 93 09/29/16 16:00 97.5 100 18 142/56 96 I/O 09/29/16 09/29/16 09/29/16 09/30/16 09/30/16 09/30/16 07:00 15:00 23:00 07:00 15:00 23:00 Intake Total 60 ml 1440 ml 115 ml Output Total 875 ml 700 ml 2500 ml 800 ml Balance -815 ml -700 ml -1060 ml -685 ml Intake Oral 60 ml 1440 ml IV Total 115 ml Output Urine Total 875 ml 700 ml 2500 ml 800 ml # Bowel Movements 1 0 Laboratory Laboratory Tests Test 09/29/16 09/29/16 09/30/16 17:45 20:33 06:16 Urine Color YELLOW Urine Turbidity CLEAR Urine pH 6.5 Urine Specific [place] 1.011 Urine Protein NEG Urine Glucose (UA) NEG Urine Ketones NEG Urine Occult Blood NEG Urine Nitrite NEG Urine Bilirubin NEG Urine Urobilinogen LESS THAN 2.0 Urine Leukocyte Esterase NEG Urine RBC 1 Urine WBC 3 Urine Mucus FEW Microscopic Urinalysis Comment CULT NOT INDICATED Blood Bank Comment White Blood Count 9.4 Red Blood Count 3.36 Hemoglobin 10.5 Hematocrit 31.7 Mean Corpuscular Volume 94.4 Mean Corpuscular Hemoglobin 31.1 Mean Corpuscular Hemoglobin 33.0 Concent Red Cell Distribution Width 15.1 Platelet Count 89 Mean Platelet Volume 8.1 Neutrophils (%) (Auto) 77.8 Lymphocytes (%) (Auto) 10.3 Monocytes (%) (Auto) 9.8 Eosinophils (%) (Auto) 1.6 Basophils (%) (Auto) 0.5 Neutrophils # (Auto) 7.3 Lymphocytes # (Auto) 1.0 Monocytes # (Auto) 0.9 Eosinophils # (Auto) 0.2 Basophils # (Auto) 0.0 CBC Comment AUTO DIFF Differential Total Cells 100 Counted Neutrophils % (Manual) 76 Band Neutrophils % 9 Lymphocytes % 7 Monocytes % 7 Neutrophils # (Manual) 8.1 Metamyelocytes 1 Differential Comment FINAL DIFF MANUAL Platelet Estimate LOW Platelet Morphology Comment NORMAL Tear Drop Cells 1+ Ovalocytes 1+ Lactate Dehydrogenase 270 Date/Time Procedure Status Source Growth 09/29/16 20:35 Aerobic Blood Culture - Preliminary Resulted Blood Peripheral NO GROWTH IN 1 DAY 09/29/16 20:35 Anaerobic Blood Culture - Preliminary Resulted Blood Peripheral NO GROWTH IN 1 DAY 09/29/16 09:15 Gram Stain - Final Resulted Sputum Expectorated Sputum 09/29/16 09:15 Sputum Culture Resulted Sputum Expectorated Sputum Pending Imaging Last Impressions Chest CT 09/29/16 0000 Signed Impressions: Service Date/Time: Thursday, September 29, 2016 15:50 - CONCLUSION: 1. Small left pleural effusion slightly increased from September 23. There is basal atelectasis and scarring. 2. Postoperative median sternotomy and aortic valve replacement. Right central line tip in right atrium. 3. 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 4. Mild anasarca, especially in the upper abdominal region with dilatation of the visualized stomach and proximal small bowel and mild ascites. Leonel Dietz MD Chest X-Ray 09/27/16 0000 Signed Impressions: Service Date/Time: Tuesday, September 27, 2016 15:52 - CONCLUSION: 1. Mild worsening left lower lung zone atelectasis. Taz Loomis MD Catheter Placement X-Ray 09/26/16 0000 Signed Impressions: Service Date/Time: September 14:22 - CONCLUSION: Uncomplicated line placement as above. Taz Loomis MD Hepatobiliary Scan Nuclear Medicine 09/25/16 0000 Signed Impressions: Service Date/Time: Sunday, September 25, 2016 07:58 - CONCLUSION: There is no evidence for common duct obstruction. Andreas Ogden MD FACR Abdomen/Pelvis CT 09/23/16 0515 Signed Impressions: Service Date/Time: Friday, September 23, 2016 05:42 - CONCLUSION: 1. Abnormal bowel gas pattern with apparent inflammatory change and enhancement in the right upper quadrant the proximal small bowel and mid ileum. The findings are nonspecific. 2. Post surgical changes status post colonic resection. There is an ostomy in the right lower quadrant. 3. Anasarca. 4. The common bile duct appears prominent and measures up to 1 cm. Mandeep Abbasi MD Physical Exam HEENT: PERRL; normocephalic; atraumatic; no jaundice. CHEST: coarse rales CARDIAC: irr HR, + murmur ABDOMEN: Soft, nondistended, nontender; no hepatosplenomegaly; bowel sounds are present in all four quadrants EXTREMITIES: No clubbing, cyanosis, or edema. SKIN: no rash; no jaundice. 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 Assessment and Plan Plan ASSESSMENT: - Elevated LFTs. Trending down. She reports long history of LFTs "fluctuating" but denies any known underlying liver disease such as cirrhosis. No ETOH. No family hx of liver disease. Hepatitis panel negative. Abdomen/Pelvis CT (09/23/16)---> 1. Abnormal bowel gas pattern with apparent inflammatory change and enhancement in the right upper quadrant the proximal small bowel and mid ileum. The findings are nonspecific. 2. Post surgical changes status post colonic resection. There is an ostomy in the right lower quadrant. 3. Anasarca. 4. The common bile duct appears prominent and measures up to 1 cm. HIDA (09/25/16)----> There is no evidence for common duct obstruction. Occasional nausea, mild abdominal discomfort- related to coughing. Liver w/u neg. - constipation - hard stool yesterday, pt requests miralax added to bowel regimen - Acute thrombocytopenia/coagulopathy, unclear etiology. Hematology following for the acute thrombocytopenia with elevated LDH and low haptoglobin, low fibrinogen. It is unclear at this time, if this is related to underlying liver disease vs hemolysis, TTP. She is being treated with steroids, FFP. s/p plasma exchange - Hematuria. HH stable S/P evaluation, recommended conservative management with correction of underlying coagulopathy. - Hx recurrent DVT/PE. Eliquis - Hx Bladder cancer, S/P radical cystectomy and ileal conduit urinary diversion in 1987- without evidence of recurrent disease - Hx Colon cancer, s/p resection without chemotherapy or radiation - COPD, Bronchitis, HTN, UTI per attending. PLAN: - ELIZA - daily miralax - liver w/u neg, LFTs trending down - Monitor LFTs - Supportive care - Further recommendations to follow based on results of above - Pt seen and examined by Dr. Almonte and myself and this note is written on his behalf Safia Apodaca Sep 30, 2016 15:33
[2016-09-30 15:51] LABS: VWF CLEAVING PROT ACT 120 (68-163); VWF PROTEASE INH ND BEU (<0.4)
[2016-09-30] MEDS: POLYETHYLENE GLYCOL 17 GM PKG PO SCH (16:22)
--- NOTE | 2016-09-30 17:16 | HHI.PR ---
Subjective Remarks resting in bed HD in rm, mild SOB and cough at rest. States she cant cough up sputum afebrile, wearing O2 (Radha Shanks) Objective Objective Results - Vital Signs Date Time Temp Pulse Resp B/P Pulse Ox O2 Delivery O2 Flow Rate FiO2 09/30/16 09:29 97 09/30/16 08:14 Room Air 09/30/16 08:00 98.3 84 18 119/60 96 09/30/16 04:00 97.2 79 18 121/67 96 09/29/16 23:00 98.2 85 19 145/68 95 09/29/16 22:30 74 128/60 09/29/16 20:38 95 Nasal Cannula 2.00 09/29/16 20:29 Room Air 09/29/16 20:00 98.2 83 19 129/52 93 I/O 09/29/16 09/29/16 09/29/16 09/30/16 09/30/16 09/30/16 07:00 15:00 23:00 07:00 15:00 23:00 Intake Total 60 ml 1440 ml 115 ml Output Total 875 ml 700 ml 2500 ml 800 ml Balance -815 ml -700 ml -1060 ml -685 ml Intake Oral 60 ml 1440 ml IV Total 115 ml Output Urine Total 875 ml 700 ml 2500 ml 800 ml # Bowel Movements 1 0 (Radha Shanks) Result Diagram: 09/30/16 0616 09/29/16 1010 Other Results Last Impressions Chest CT 09/29/16 0000 Signed Impressions: Service Date/Time: Thursday, September 29, 2016 15:50 - CONCLUSION: 1. Small left pleural effusion slightly increased from September 23. There is basal atelectasis and scarring. 2. Postoperative median sternotomy and aortic valve replacement. Right central line tip in right atrium. 3. 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 4. Mild anasarca, especially in the upper abdominal region with dilatation of the visualized stomach and proximal small bowel and mild ascites. Leonel Dietz MD Chest X-Ray 09/27/16 0000 Signed Impressions: Service Date/Time: Tuesday, September 27, 2016 15:52 - CONCLUSION: 1. Mild worsening left lower lung zone atelectasis. Taz Loomis MD Catheter Placement X-Ray 09/26/16 0000 Signed Impressions: Service Date/Time: September 14:22 - CONCLUSION: Uncomplicated line placement as above. Taz Loomis MD Hepatobiliary Scan Nuclear Medicine 09/25/16 0000 Signed Impressions: Service Date/Time: Sunday, September 25, 2016 07:58 - CONCLUSION: There is no evidence for common duct obstruction. Andreas Ogden MD FACR Abdomen/Pelvis CT 09/23/16 0515 Signed Impressions: Service Date/Time: Friday, September 23, 2016 05:42 - CONCLUSION: 1. Abnormal bowel gas pattern with apparent inflammatory change and enhancement in the right upper quadrant the proximal small bowel and mid ileum. The findings are nonspecific. 2. Post surgical changes status post colonic resection. There is an ostomy in the right lower quadrant. 3. Anasarca. 4. The common bile duct appears prominent and measures up to 1 cm. Mandeep Abbasi MD (Radha Shanks) ROS General: Fatigue, Weakness, Other (10 point ROS done.) Pulmonary: Cough, SOB (mild at rest ) Skin: Other (Radha Shanks) Physical Exam Physical Exam PHYSICAL EXAMINATION GENERAL: This is a elderly female resting in bed recieving HD. She is alert and awake, HEAD: Normocephalic Facial features appear symmetric. OROPHARYNGEAL: Oropharynx without erythema or edema., speech clear NECK: Supple. No nuchal rigidity or lymphadenopathy. Trachea midline without deviation. CARDIAC: Regular rhythm, regular rate, S1 and S2 distant LUNGS: Diminished to auscultation bilaterally. course upper airway rhonchi, Mild dyspnea at rest. ABDOMEN: Soft, nontender, no organomegaly or masses. Bowel sounds are heard in all four quadrants. No rebound. No guarding. EXTREMITIES: no edema. extremities warm NEUROLOGICAL: Patient mood and affect appropriate. No focal deficit SKIN:Warm , dry (Radha Shanks) A/P Assessment and Plan (1) Hematuria (2) Anticoagulated by anticoagulation treatment (3) Thrombocytopenia (4) COPD exacerbation (5) Breast cancer, left (6) Hx pulmonary embolism (7) Hx of deep venous thrombosis (8) COPD with exacerbation (9) HTN (hypertension) (10) Bronchitis (11) Hx of bladder cancer (12) UTI (urinary tract infection) (13) Hyperglycemia Assessment and Plan vitals reviewed, normal trends labs reviewed, anemia stable at 10.5 , Hyperglycemia, likely secondary to steroids, ТАТЬЯНА, dehydration, BUN 25, monitor with PO lasix being given Hematuria, resolved, patient was on Eliquix, hold now, platelets improved Bowel regimin, BM yesterday UTI -Ent. faecium, antibiotic therapy, denies any symptoms Thrombocytopenia-susp., improved -appreciate hematology input- -PPE tx started 09/26, plans for 5 treatments, last one today, Elevated LFTs Elevated T. bili Elevated Alk phosph, LFTs, bilirubin -GI consulted, input appreciate. Recent admission for COPD exacerbation, with bronchitis- cough remains, not improving. PO steroids , DuoNeb's, medical management -continues with cough, diffuse ronchi., Pulmonary consult , aggressive therapy added with acapella , IS, increased PO steroids, IV antibiotics and ABG. and O2. CT chest noted Mild CHF -CXR mild worsening left lower zone monitor with I/O PO lasix, monitor BUN Recent EGD with dilatation, cough without sputum production today., Swallow evaluation done, recommendations noted. Instructed pt. to sit up and eat, drink slowly activity, pt. ambulating in [place] at least twice daily, compensated with SOB while up. Supportive to get better with multicomorbid issues. SCDs DVT prophylaxis Condition guarded , patient is hoping to overcome. D/W pt D/W nurse D/W Dr. Monroy, seen on his behalf (Radha Shanks) Assessment and Plan seen, examined by myself, Dr Monroy, today Discussed with patient Discussed with mid level provider Discussed with nurse, patient appears to be doing better The exam, history, and the medical decision-making described in the above note were completed with the assistance of the mid-level provider. I reviewed the findings presented. I attest that I had a [id number] encounter with the patient on the same day, and personally performed and documented my assessment and findings in the medical record. (Fredis Monroy MD) Radha Shanks Sep 30, 2016 17:16 Fredis Monroy MD Sep 30, 2016 20:06
[2016-09-30] MEDS: HEPARIN SODIUM - 10,000 UNITS/ML 1ML VIAL IV FLUSH PRN (18:37)
[2016-09-30] MEDS: ATENOLOL 50 MG TAB PO SCH (18:38)
[2016-09-30] MEDS: FUROSEMIDE 20 MG TAB PO SCH (18:38)
--- NOTE | 2016-09-30 19:13 | HHI.PR ---
Subjective Remarks 86 YOWF with COPD exac, Thrombocytopenia,ca breast and Bladder receiving Plasma pharesis Mild sob On RA Objective Vital Signs Vital Signs Date Time Temp Pulse Resp B/P Pulse Ox O2 Delivery O2 Flow Rate FiO2 09/30/16 09:29 97 09/30/16 08:14 Room Air 09/30/16 08:00 98.3 84 18 119/60 96 09/30/16 04:00 97.2 79 18 121/67 96 09/29/16 23:00 98.2 85 19 145/68 95 09/29/16 22:30 74 128/60 09/29/16 20:38 95 Nasal Cannula 2.00 09/29/16 20:29 Room Air 09/29/16 20:00 98.2 83 19 129/52 93 I/O 09/29/16 09/29/16 09/29/16 09/30/16 09/30/16 09/30/16 07:00 15:00 23:00 07:00 15:00 23:00 Intake Total 60 ml 1440 ml 115 ml Output Total 875 ml 700 ml 2500 ml 800 ml Balance -815 ml -700 ml -1060 ml -685 ml Intake Oral 60 ml 1440 ml IV Total 115 ml Output Urine Total 875 ml 700 ml 2500 ml 800 ml # Bowel Movements 1 0 Result Diagram: 09/30/16 0616 09/29/16 1010 Objective Remarks GENERAL: MBMN, mild sob SKIN: Warm and dry. HEAD: Normocephalic. EYES: No scleral icterus. No injection or drainage. NECK: Supple, trachea midline. No JVD or lymphadenopathy. CARDIOVASCULAR: Regular rate and rhythm without murmurs, gallops, or rubs. RESPIRATORY: Breath sounds equal bilaterally. No accessory muscle use. GASTROINTESTINAL: Abdomen soft, non-tender, nondistended. MUSCULOSKELETAL: No cyanosis, or edema. BACK: Nontender without obvious deformity. No CVA tenderness. A/P Assessment and Plan COPD Exac Thrombocttopenia H/O Ca breast Ca Bladder HTN PLAN: Aerosol nebs PO Steroids Cont Abx Platlets pharesis Monitor platlets count Satish Calabrese MD Sep 30, 2016 19:12
[2016-09-30 20:00] VITALS: BP 116/61; PULSE 84; RESP 18; TEMP 98.6; O2SAT 97
[2016-09-30] MEDS: CALCIUM CARBONATE 500 MG CHEWABLE TAB CHEW SCH (20:11)
[2016-09-30] MEDS: MIRTAZAPINE 15 MG TAB PO SCH (20:12)
[2016-09-30] MEDS: MONTELUKAST SODIUM 10 MG TAB PO SCH (20:13)
[2016-09-30 22:22] VITALS: BP 145/67; PULSE 68
[2016-10-01] VITALS (10 sets, daily range): BP systolic 102–134; BP diastolic 51–92; PULSE 73–95; RESP 16–20; TEMP 96.8–98.3; O2SAT 95–98
[2016-10-01 00:43] LABS: PROTHROMBIN TIME - PATIENT 11.4 SEC (9.8-11.6)
[2016-10-01] MEDS: CEFEPIME INJ 1,000 MG in SODIUM CHLORIDE 0.9% INJ 100 ML IV SCH ×2 (02:46→16:23)
[2016-10-01] MEDS: SODIUM CHLORIDE 0.9% FLUSH 10 ML FLUSH IV FLUSH PRN (03:17)
[2016-10-01] MEDS: MORPHINE SULFATE 4 MG/ML INJ IV PUSH PRN ×3 (03:17→19:28)
[2016-10-01] MEDS: hydrALAZINE HCL 25 MG TAB PO SCH ×3 (06:34→22:43)
[2016-10-01] MEDS: LEVOTHYROXINE SODIUM 150 MCG TAB PO SCH (06:34)
[2016-10-01] MEDS: INSULIN ASPART SUPPLEMENTAL SCALE SQ SCH ×4 (06:49→22:56)
[2016-10-01] MEDS: RESP: ALBUTEROL 2.5 MG/IPRATROPIUM 0.5 MG NEB (SCH) NEB ×3 (07:38→15:27)
[2016-10-01 08:08] LABS: APTT (PATIENT) 23.7 SEC (24.3-30.1); PROTHROMBIN TIME - PATIENT 11.5 SEC (9.8-11.6)
[2016-10-01 08:27] LABS: ALKALINE PHOSPHATASE 116 U/L (45-117); ALT (GPT) 39 U/L (10-53); ANION GAP 7 MEQ/L (5-15); AST (GOT) 38 U/L (15-37); BICARBONATE 34.4 MEQ/L (21.0-32.0); BLOOD UREA NITROGEN 22 MG/DL (7-18); CHLORIDE 101 MEQ/L (98-107); GLOMERULAR FILTRATION RATE 81 ML/MIN (>89); LDH SERUM 256 U/L (84-246); POTASSIUM 3.8 MEQ/L (3.5-5.1); SODIUM (NA) 142 MEQ/L (136-145); TOTAL BILIRUBIN ADULT 0.6 MG/DL (0.2-1.0)
[2016-10-01 08:29] LABS: AUTOMATED NEUTROPHIL # 6.6 TH/MM3 (1.8-7.7); BASOPHIL # 0.1 TH/MM3 (0-0.2); BASOPHIL % 0.6 % (0.0-2.0); EOSINOPHIL # 0.2 TH/MM3 (0-0.4); EOSINOPHIL % 1.8 % (0.0-4.0); HEMATOCRIT 30.9 % (35.0-46.0); HEMO FLAGS AUTO DIFF; LYMPH % 12.2 % (9.0-44.0); LYMPHOCYTE # 1.1 TH/MM3 (1.0-4.8); MEAN CELL VOLUME 94.9 FL (80.0-100.0); MEAN CORPUSCULAR HEMOGLOBIN 31.8 PG (27.0-34.0); MEAN CORPUSCULAR HGB CONC 33.5 % (32.0-36.0); MONO % 10.2 % (0.0-8.0); NEUT % 75.2 % (16.0-70.0); PLATELET COUNT 96 TH/MM3 (150-450); RED BLOOD COUNT 3.26 MIL/MM3 (4.00-5.30); RED CELL DISTRIBUTION WIDTH 15.5 % (11.6-17.2); WHITE BLOOD COUNT 8.7 TH/MM3 (4.0-11.0)
[2016-10-01 08:31] LABS: OVALOCYTES 1+ (NORMAL); PLATELET ESTIMATE SMEAR LOW (NORMAL); PLATELET MORPHOLOGY NORMAL (NORMAL); SCAN/DIFF AUTO DIFF CONFIRMED
[2016-10-01] MEDS: POLYETHYLENE GLYCOL 17 GM PKG PO SCH (09:32)
[2016-10-01] MEDS: BUDESONIDE-FORMOTEROL 80/4.5 MCG INHALER INH SCH ×2 (09:33→22:45)
[2016-10-01] MEDS: PARoxetine HCL 20 MG TAB PO SCH (09:33)
[2016-10-01] MEDS: guaiFENesin E.R. 600 MG TAB PO SCH ×2 (09:33→22:42)
[2016-10-01] MEDS: CALCIUM CARBONATE 500 MG CHEWABLE TAB CHEW SCH ×2 (09:34→22:43)
[2016-10-01] MEDS: ATENOLOL 50 MG TAB PO SCH (09:34)
[2016-10-01] MEDS: MORPHINE SULFATE 15 MG CONTROLLED RELEASE TAB PO SCH ×2 (09:34→22:44)
[2016-10-01] MEDS: LISINOPRIL 20 MG TAB PO SCH ×2 (09:35→22:43)
[2016-10-01] MEDS: FUROSEMIDE 20 MG TAB PO SCH (09:35)
[2016-10-01] MEDS: predniSONE 10 MG TAB PO SCH ×2 (09:35→22:43)
[2016-10-01] MEDS: SODIUM CHLORIDE 0.9% FLUSH 10 ML FLUSH IV FLUSH SCH ×2 (09:35→22:49)
[2016-10-01] MEDS ORDERED: ACETAMINOPHEN 1000 MG/100 ML VIAL IV ONE (11:30)
--- NOTE | 2016-10-01 11:34 | PD.ONC.PN ---
Subjective Subjective Remarks Afebrile overnight. Resting in bed, receiving breathing treatment. had a difficult time sleeping last night. very tired today. Objective Data Date Time Temp Pulse Resp B/P Pulse Ox O2 Delivery O2 Flow Rate FiO2 10/01/16 08:00 96.9 80 18 109/69 95 10/01/16 07:40 98 21 10/01/16 06:32 123/59 10/01/16 04:00 97.6 87 18 102/51 97 10/01/16 00:00 98.3 82 18 134/67 96 09/30/16 22:22 68 145/67 09/30/16 20:10 Room Air 09/30/16 20:00 98.6 84 18 116/61 97 09/30/16 19:59 21 09/30/16 12:00 97.7 83 18 142/65 97 10/01/16 10/01/16 10/01/16 07:00 15:00 23:00 Intake Total 600 ml Output Total 1275 ml Balance -675 ml Result Diagram: 10/01/1648 10/01/16 0648 Laboratory Results Laboratory Tests Test 09/30/16 10/01/16 23:42 06:48 Prothrombin Time 11.4 SEC 11.5 SEC Prothromb Time International 1.0 RATIO 1.0 RATIO Ratio Fibrinogen 219 mg/dL 196 mg/dL White Blood Count 8.7 TH/MM3 Red Blood Count 3.26 MIL/MM3 Hemoglobin 10.4 GM/DL Hematocrit 30.9 % Mean Corpuscular Volume 94.9 FL Mean Corpuscular Hemoglobin 31.8 PG Mean Corpuscular Hemoglobin 33.5 % Concent Red Cell Distribution Width 15.5 % Platelet Count 96 TH/MM3 Mean Platelet Volume 7.9 FL Neutrophils (%) (Auto) 75.2 % Lymphocytes (%) (Auto) 12.2 % Monocytes (%) (Auto) 10.2 % Eosinophils (%) (Auto) 1.8 % Basophils (%) (Auto) 0.6 % Neutrophils # (Auto) 6.6 TH/MM3 Lymphocytes # (Auto) 1.1 TH/MM3 Monocytes # (Auto) 0.9 TH/MM3 Eosinophils # (Auto) 0.2 TH/MM3 Basophils # (Auto) 0.1 TH/MM3 CBC Comment AUTO DIFF Differential Comment AUTO DIFF CONFIRMED Platelet Estimate LOW Platelet Morphology Comment NORMAL Ovalocytes 1+ Haptoglobin 43 MG/DL Activated Partial 23.7 SEC Thromboplast Time Sodium Level 142 MEQ/L Potassium Level 3.8 MEQ/L Chloride Level 101 MEQ/L Carbon Dioxide Level 34.4 MEQ/L Anion Gap 7 MEQ/L Blood Urea Nitrogen 22 MG/DL Creatinine 0.69 MG/DL Estimat Glomerular Filtration 81 ML/MIN Rate Random Glucose 104 MG/DL Calcium Level 8.3 MG/DL Total Bilirubin 0.6 MG/DL Direct Bilirubin 0.2 MG/DL Aspartate Amino Transf 38 U/L (AST/SGOT) Alanine Aminotransferase 39 U/L (ALT/SGPT) Alkaline Phosphatase 116 U/L Lactate Dehydrogenase 256 U/L Total Protein 5.4 GM/DL Albumin 2.7 GM/DL 25-Hydroxy Vitamin D Total 24.7 ng/ML Culture Results Microbiology Date/Time Procedure Status Source Growth 09/29/16 09:15 Gram Stain - Final Resulted Sputum Expectorated Sputum 09/29/16 09:15 Sputum Culture - Preliminary Resulted Sputum Expectorated Sputum HEAVY GROWTH NORMAL RESPIRATORY MATTHEW... 09/29/16 20:30 Aerobic Blood Culture - Preliminary Resulted Blood Peripheral NO GROWTH IN 2 DAYS 09/29/16 20:30 Anaerobic Blood Culture - Preliminary Resulted Blood Peripheral NO GROWTH IN 2 DAYS 09/29/16 20:35 Aerobic Blood Culture - Preliminary Resulted Blood Peripheral NO GROWTH IN 2 DAYS 09/29/16 20:35 Anaerobic Blood Culture - Preliminary Resulted Blood Peripheral NO GROWTH IN 2 DAYS Administered Medications Medications (Trade) Dose Ordered Sig/Jasmina Route PRN Reason Start Time Stop Time Status Last Admin Dose Admin Sodium Chloride (NS Flush) 2 ml UNSCH PRN IV FLUSH FLUSH AFTER USING IV ACCESS 09/23/16 06:15 10/01/16 03:17 Sodium Chloride (NS Flush) 2 ml BID IV FLUSH 09/23/16 09:00 10/01/16 09:35 Ondansetron HCl (Zofran Inj) 4 mg Q6H PRN IVP NAUSEA OR VOMITING 09/23/16 06:15 09/26/16 15:15 Morphine Sulfate (Morphine Inj) 2 mg Q3H PRN IV PUSH pain 6-10 09/23/16 06:15 09/30/16 14:27 Morphine Sulfate (Morphine Inj) 1 mg Q3H PRN IV PUSH pain 3-5 09/23/16 06:15 10/01/16 09:55 Atenolol (Tenormin) 50 mg DAILY PO 09/23/16 09:00 10/01/16 09:34 Benzonatate (Tessalon) 100 mg TID PRN PO COUGH 09/23/16 07:30 09/28/16 00:13 Budesonide/ Formoterol Fumarate (Symbicort 80-4.5 Mcg Inh) 2 puff Q12HR INH 09/23/16 09:00 10/01/16 09:33 Hydralazine HCl (Apresoline) 25 mg Q8HR PO 09/23/16 14:00 10/01/16 06:34 Levothyroxine Sodium (Synthroid) 150 mcg DAILY@06 PO 09/23/16 07:39 10/01/16 06:34 Lisinopril (Prinivil) 20 mg Q12HR PO 09/23/16 09:00 10/01/16 09:35 Mirtazapine (Remeron) 45 mg HS PO 09/23/16 21:00 09/30/16 20:12 Montelukast Sodium (Singulair) 10 mg HS PO 09/23/16 21:00 09/30/16 20:13 Paroxetine HCl (Paxil) 30 mg DAILY PO 09/23/16 09:00 10/01/16 09:33 Morphine Sulfate (Oramorph Sr) 15 mg BID PO 09/23/16 10:00 10/01/16 09:34 Guaifenesin 1200 mg 1,200 mg BID PO 09/25/16 21:00 10/01/16 09:33 Sodium Chloride (NS 1000 ml Inj) 1,000 ml @ 0 mls/hr Q24H IV 09/26/16 19:15 10/01/16 19:14 09/30/16 15:07 Heparin Sodium (Porcine) (Heparin Inj) 5,000 units UNSCH PRN IV FLUSH FLUSH AFTER USING IV ACCESS 09/26/16 19:00 10/01/16 18:59 09/30/16 18:37 Furosemide (Lasix) 20 mg DAILY PO 09/29/16 09:00 10/01/16 09:35 Polyethylene Glycol 17 gm 17 gm Q24H PRN PO CONSTIPATION 09/28/16 23:15 09/29/16 00:13 Cefepime HCl/ Sodium Chloride (Maxipime Inj/NS Inj) 100 ml @ 200 mls/hr Q12H IV 09/29/16 14:00 10/01/16 02:46 Prednisone (Deltasone) 10 mg BID PO 09/29/16 21:00 10/01/16 09:35 Polyethylene Glycol (Miralax) 17 gm DAILY PO 09/30/16 16:00 10/01/16 09:32 Calcium Carbonate (Tums Chew) 500 mg Q12HR CHEW 09/30/16 21:00 10/01/16 09:34 Objective Remarks GENERAL: Elderly female lying in bed in nad SKIN: Warm and dry. HEAD: Normocephalic. EYES: No injection or drainage. NECK: Supple, trachea midline. CARDIOVASCULAR: +S1/S2 RESPIRATORY: scattered rhonchi all lung lockhart. GASTROINTESTINAL: Abdomen soft, non-tender, nondistended. EXTREMITIES: No cyanosis NEUROLOGICAL: awake and alert, able to move extremities. Assessment/Plan Problem List: (1) Thrombocytopenia Status: Acute Plan: 1. Acute Thrombocytopenia- --plasma exchange from 8.3 to 8.7 - 09/27: LDH falling, platelet count marginally improved. continue plasma exchange --09/28: platelets improved to 70K, LDH fell. monitor. await ADAMS13. --09/29: monitor CBC, LDH, continue plasma exchange --09/30: platelets continuing to improved today --10/01: platelets recovered (2) COPD exacerbation Status: Acute Plan: --D'veliz following recommended IS, Acapella, Prednisone BID, Duonebs --CT chest shows small pleural effusion, atelectasis, scarring. (3) Hx of bladder cancer Status: Acute Plan: --further care will be outpatient in clinic Assessment 86-year-old female with history of bladder cancer admitted with hematuria and thrombocytopenia Plan 1. monitor CBC, coags 2. continue steroids, duonebs IS, Acapella per pulmonology 3. once discharged follow up in clinic Attending Statement The exam, history, and the medical decision-making described in the above note were completed with the assistance of the mid-level provider. I reviewed and agree with the findings presented. I attest that I had a [id number] encounter with the patient on the same day, and personally performed and documented my assessment and findings in the medical record. Pt seen and examined. Breast surgery tentatively scheduled 10/21. Discussed risk and benefit of Arimidex to start. Pheresis DC'd unlikely TTP with normal Adamst 13 but LDH still elevated, still thrombocytopenic. Clinically better, tired after walk. Cont Vitamin D replacement at home when DC, levels low. Discussed holding Eliquis, in light of bleeding prefer a drug we can reverse like Coumadin. Pt familiar with Coumadin and no objection for Coumadin. Defer bridging to therapeutic INR until after surgery. Brandie Mathis Oct 01, 2016 11:34 Donna Meza MD Oct 01, 2016 20:06
--- NOTE | 2016-10-01 16:26 | HHI.PR ---
Subjective Remarks resting in bed dozing lightly No family present No SOB at rest, cough with deep breathing States she is feeling some better today Objective Objective Results - Vital Signs Date Time Temp Pulse Resp B/P Pulse Ox O2 Delivery O2 Flow Rate FiO2 10/01/16 15:27 97 21 10/01/16 12:00 96.8 73 20 118/92 97 10/01/16 08:00 96.9 80 18 109/69 95 10/01/16 07:40 98 21 10/01/16 06:32 123/59 10/01/16 04:00 97.6 87 18 102/51 97 10/01/16 00:00 98.3 82 18 134/67 96 09/30/16 22:22 68 145/67 09/30/16 20:10 Room Air 09/30/16 20:00 98.6 84 18 116/61 97 09/30/16 19:59 21 I/O 09/30/16 09/30/16 09/30/16 10/01/16 10/01/16 10/01/16 07:00 15:00 23:00 07:00 15:00 23:00 Intake Total 115 ml 600 ml 600 ml Output Total 800 ml 925 ml 1275 ml Balance -685 ml 600 ml -925 ml -675 ml Intake Oral 600 ml 480 ml IV Total 115 ml 120 ml Output Urine Total 800 ml 925 ml 1275 ml # Voids 4 Result Diagram: 10/01/1648 10/01/16 0648 ROS General: Fatigue, Weakness, Other (10 point ROS done positives noted) Pulmonary: Cough, SOB GI: BM Physical Exam Physical Exam PHYSICAL EXAMINATION GENERAL: This is an elderly female Resting in the bed dozing lightly She awakens to verbal stimuli HEAD: Normocephalic Facial features appear symmetric. OROPHARYNGEAL: Oropharynx clear NECK: Supple. Trachea midline without deviation. CARDIAC: Regular rhythm, regular rate, S1 and S2 are heard. Murmur soft left sternal border LUNGS: Audible rhonchi, diminished breath sounds in her bases to auscultation bilaterally. Coughs with deep respiration, coarse, not coughing up any sputum at present ABDOMEN: Soft, nontender, no organomegaly or masses. Bowel sounds soft active EXTREMITIES: no edema. Strength is warm NEUROLOGICAL: Patient mood and affect appropriate. No focal deficit SKIN:Warm and dry, color pale A/P Assessment and Plan (1) Hematuria (2) Anticoagulated by anticoagulation treatment (3) Thrombocytopenia (4) COPD exacerbation (5) Breast cancer, left (6) Hx pulmonary embolism (7) Hx of deep venous thrombosis (8) COPD with exacerbation (9) HTN (hypertension) (10) Bronchitis (11) Hx of bladder cancer (12) UTI (urinary tract infection) (13) Hyperglycemia Assessment and Plan vitals reviewed, BP 118/92, monitor diastolic pressure labs reviewed acute kidney injury with dehydration BUN decreased to 22, encourage patient to continue drinking by mouth fluids, vitamin D level low, placed on oral dose, AST elevated 38, hemoglobin 10.4 anemia stabilized Hematuria, resolved, patient was on Eliquix, hold now, Bowel regimin, BM today UTI -Ent. faecium, antibiotic therapy, denies any symptoms Thrombocytopenia-susp., improved -appreciate hematology input-, continue to monitor CBC and coags, platelets have recovered. Elevated LFTs Elevated T. bili, and AST Elevated Alk phosph, LFTs, bilirubin -GI consulted, input appreciate. Recent admission for COPD exacerbation, with bronchitis- cough remained but continues to improve, PO steroids , DuoNeb's, medical management Pulmonary consult , aggressive therapy added with acapella , IS, increased PO steroids, IV antibiotics and ABG. and O2. CT chest noted , patient does seem to be resting better today, and is able to sleep without shortness of breath Possible Mild CHF CT chest shows basilar atelectasis as well as small left pleural effusion monitor with I/O PO lasix, BUN 22 trending down Recent EGD with dilatation, patient denies any problems swallowing or drinking Swallow evaluation done, recommendations noted. Instructed pt. to sit up and eat, drink slowly activity, pt. ambulating in [place] at least twice daily, compensated with SOB while up. Supportive to get better with multicomorbid issues. SCDs DVT prophylaxis Condition guarded , patient is hoping to overcome. D/W pt D/W nurse D/W Dr. Monroy, seen on his behalf Radha Shanks Oct 01, 2016 16:26
--- NOTE | 2016-10-01 16:45 | HHI.GIFU ---
Subjective Remarks Pt resting in bed, family at bedside. No complaints, feels a little bit better every day Objective Vitals I&O Vital Signs Date Time Temp Pulse Resp B/P Pulse Ox O2 Delivery O2 Flow Rate FiO2 10/01/16 15:27 97 21 10/01/16 12:00 96.8 73 20 118/92 97 10/01/16 08:00 96.9 80 18 109/69 95 10/01/16 07:40 98 21 10/01/16 06:32 123/59 10/01/16 04:00 97.6 87 18 102/51 97 10/01/16 00:00 98.3 82 18 134/67 96 09/30/16 22:22 68 145/67 09/30/16 20:10 Room Air 09/30/16 20:00 98.6 84 18 116/61 97 09/30/16 19:59 21 I/O 09/30/16 09/30/16 09/30/16 10/01/16 10/01/16 10/01/16 06:59 14:59 22:59 06:59 14:59 22:59 Intake Total 115 ml 600 ml 600 ml Output Total 800 ml 925 ml 1275 ml Balance -685 ml 600 ml -925 ml -675 ml Intake Oral 600 ml 480 ml IV Total 115 ml 120 ml Output Urine Total 800 ml 925 ml 1275 ml # Voids 4 Laboratory Laboratory Tests Test 09/30/16 10/01/16 23:42 06:48 Prothrombin Time 11.4 11.5 Prothromb Time International 1.0 1.0 Ratio Fibrinogen 219 196 White Blood Count 8.7 Red Blood Count 3.26 Hemoglobin 10.4 Hematocrit 30.9 Mean Corpuscular Volume 94.9 Mean Corpuscular Hemoglobin 31.8 Mean Corpuscular Hemoglobin 33.5 Concent Red Cell Distribution Width 15.5 Platelet Count 96 Mean Platelet Volume 7.9 Neutrophils (%) (Auto) 75.2 Lymphocytes (%) (Auto) 12.2 Monocytes (%) (Auto) 10.2 Eosinophils (%) (Auto) 1.8 Basophils (%) (Auto) 0.6 Neutrophils # (Auto) 6.6 Lymphocytes # (Auto) 1.1 Monocytes # (Auto) 0.9 Eosinophils # (Auto) 0.2 Basophils # (Auto) 0.1 CBC Comment AUTO DIFF Differential Comment AUTO DIFF CONFIRMED Platelet Estimate LOW Platelet Morphology Comment NORMAL Ovalocytes 1+ Haptoglobin 43 Activated Partial 23.7 Thromboplast Time Sodium Level 142 Potassium Level 3.8 Chloride Level 101 Carbon Dioxide Level 34.4 Anion Gap 7 Blood Urea Nitrogen 22 Creatinine 0.69 Estimat Glomerular Filtration 81 Rate Random Glucose 104 Calcium Level 8.3 Total Bilirubin 0.6 Direct Bilirubin 0.2 Aspartate Amino Transf 38 (AST/SGOT) Alanine Aminotransferase 39 (ALT/SGPT) Alkaline Phosphatase 116 Lactate Dehydrogenase 256 Total Protein 5.4 Albumin 2.7 25-Hydroxy Vitamin D Total 24.7 Date/Time Procedure Status Source Growth 09/29/16 20:35 Aerobic Blood Culture - Preliminary Resulted Blood Peripheral NO GROWTH IN 2 DAYS 09/29/16 20:35 Anaerobic Blood Culture - Preliminary Resulted Blood Peripheral NO GROWTH IN 2 DAYS 09/29/16 09:15 Gram Stain - Final Complete Sputum Expectorated Sputum 09/29/16 09:15 Sputum Culture - Final Complete Sputum Expectorated Sputum HEAVY GROWTH NORMAL RESPIRATORY MATTHEW Imaging Last Impressions Chest CT 09/29/16 0000 Signed Impressions: Service Date/Time: Thursday, September 29, 2016 15:50 - CONCLUSION: 1. Small left pleural effusion slightly increased from September 23. There is basal atelectasis and scarring. 2. Postoperative median sternotomy and aortic valve replacement. Right central line tip in right atrium. 3. 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 4. Mild anasarca, especially in the upper abdominal region with dilatation of the visualized stomach and proximal small bowel and mild ascites. Leonel Dietz MD Chest X-Ray 09/27/16 0000 Signed Impressions: Service Date/Time: Tuesday, September 27, 2016 15:52 - CONCLUSION: 1. Mild worsening left lower lung zone atelectasis. Taz Loomis MD Catheter Placement X-Ray 09/26/16 0000 Signed Impressions: Service Date/Time: September 14:22 - CONCLUSION: Uncomplicated line placement as above. Taz Loomis MD Hepatobiliary Scan Nuclear Medicine 09/25/16 0000 Signed Impressions: Service Date/Time: Sunday, September 25, 2016 07:58 - CONCLUSION: There is no evidence for common duct obstruction. Andreas Ogden MD FACR Abdomen/Pelvis CT 09/23/16 0515 Signed Impressions: Service Date/Time: Friday, September 23, 2016 05:42 - CONCLUSION: 1. Abnormal bowel gas pattern with apparent inflammatory change and enhancement in the right upper quadrant the proximal small bowel and mid ileum. The findings are nonspecific. 2. Post surgical changes status post colonic resection. There is an ostomy in the right lower quadrant. 3. Anasarca. 4. The common bile duct appears prominent and measures up to 1 cm. Mandeep Abbasi MD Physical Exam HEENT: PERRL; normocephalic; atraumatic; no jaundice. CHEST: coarse rales CARDIAC: irr HR, + murmur ABDOMEN: Soft, nondistended, nontender; no hepatosplenomegaly; bowel sounds are present in all four quadrants, ostomy bag with clear yellow urine EXTREMITIES: No clubbing, cyanosis, or edema. SKIN: no rash; no jaundice. ecchymosis right hand [employer]: No focal deficits; alert and oriented times three. Assessment and Plan Plan ASSESSMENT: - Elevated LFTs. Trending down. She reports long history of LFTs "fluctuating" but denies any known underlying liver disease such as cirrhosis. No ETOH. No family hx of liver disease. Hepatitis panel negative. Abdomen/Pelvis CT (09/23/16)---> 1. Abnormal bowel gas pattern with apparent inflammatory change and enhancement in the right upper quadrant the proximal small bowel and mid ileum. The findings are nonspecific. 2. Post surgical changes status post colonic resection. There is an ostomy in the right lower quadrant. 3. Anasarca. 4. The common bile duct appears prominent and measures up to 1 cm. HIDA (09/25/16)----> There is no evidence for common duct obstruction. Occasional nausea, mild abdominal discomfort- related to coughing. Liver w/u neg. - constipation - hard stool yesterday, pt requests miralax added to bowel regimen - Acute thrombocytopenia/coagulopathy, unclear etiology. Hematology following for the acute thrombocytopenia with elevated LDH and low haptoglobin, low fibrinogen. It is unclear at this time, if this is related to underlying liver disease vs hemolysis, TTP. She is being treated with steroids, FFP. s/p plasma exchange - Hematuria. HH stable S/P evaluation, recommended conservative management with correction of underlying coagulopathy. - Hx recurrent DVT/PE. Eliquis - Hx Bladder cancer, S/P radical cystectomy and ileal conduit urinary diversion in 1987- without evidence of recurrent disease - Hx Colon cancer, s/p resection without chemotherapy or radiation - COPD, Bronchitis, HTN, UTI per attending. PLAN: - ELIZA - daily miralax - liver w/u neg, LFTs trending down - Monitor LFTs - Supportive care - Further recommendations to follow based on results of above - Pt seen and examined by Dr. Almonte and myself and this note is written on his behalf Safia Apodaca Oct 01, 2016 16:45
--- NOTE | 2016-10-01 19:12 | HHI.PR ---
Subjective Remarks 86 YOWF with COPD exac, Thrombocytopenia,ca breast and Bladder Mild sob On RA Ambulates Uses Acapella Small amount of sp Objective Vital Signs Vital Signs Date Time Temp Pulse Resp B/P Pulse Ox O2 Delivery O2 Flow Rate FiO2 10/01/16 16:00 97.8 89 20 126/58 97 10/01/16 15:27 97 21 10/01/16 12:00 96.8 73 20 118/92 97 10/01/16 08:00 96.9 80 18 109/69 95 10/01/16 07:40 98 21 10/01/16 06:32 123/59 10/01/16 04:00 97.6 87 18 102/51 97 10/01/16 00:00 98.3 82 18 134/67 96 09/30/16 22:22 68 145/67 09/30/16 20:10 Room Air 09/30/16 20:00 98.6 84 18 116/61 97 09/30/16 19:59 21 I/O 09/30/16 09/30/16 09/30/16 10/01/16 10/01/16 10/01/16 07:00 15:00 23:00 07:00 15:00 23:00 Intake Total 115 ml 600 ml 600 ml Output Total 800 ml 925 ml 1275 ml Balance -685 ml 600 ml -925 ml -675 ml Intake Oral 600 ml 480 ml IV Total 115 ml 120 ml Output Urine Total 800 ml 925 ml 1275 ml # Voids 4 Result Diagram: 10/01/16 0648 10/01/16 0648 Objective Remarks GENERAL: MBMN, mild sob SKIN: Warm and dry. HEAD: Normocephalic. EYES: No scleral icterus. No injection or drainage. NECK: Supple, trachea midline. No JVD or lymphadenopathy. CARDIOVASCULAR: Regular rate and rhythm without murmurs, gallops, or rubs. RESPIRATORY: Breath sounds equal bilaterally. No accessory muscle use. GASTROINTESTINAL: Abdomen soft, non-tender, nondistended. MUSCULOSKELETAL: No cyanosis, or edema. BACK: Nontender without obvious deformity. No CVA tenderness. A/P Assessment and Plan COPD Exac Thrombocttopenia H/O Ca breast Ca Bladder HTN PLAN: Aerosol nebs PO Steroids Cont Abx Monitor platlets count OOB and ambulate Dw pt and her daughter. Satish Calabrese MD Oct 01, 2016 19:12
[2016-10-01] MEDS: MONTELUKAST SODIUM 10 MG TAB PO SCH (22:43)
[2016-10-01] MEDS: MIRTAZAPINE 15 MG TAB PO SCH (22:44)
[2016-10-02] VITALS: BP 123/63; PULSE 67; RESP 16; TEMP 99.2; O2SAT 97
[2016-10-02] MEDS: CEFEPIME INJ 1,000 MG in SODIUM CHLORIDE 0.9% INJ 100 ML IV SCH ×2 (02:54→15:08)
[2016-10-02] MEDS: SODIUM CHLORIDE 0.9% FLUSH 10 ML FLUSH IV FLUSH PRN ×2 (02:55→03:50)
[2016-10-02 05:30] VITALS: BP 144/77; PULSE 63; RESP 16; TEMP 97.5; O2SAT 97
[2016-10-02] MEDS: INSULIN ASPART SUPPLEMENTAL SCALE SQ SCH ×4 (05:55→21:00)
[2016-10-02] MEDS: hydrALAZINE HCL 25 MG TAB PO SCH ×3 (05:56→22:05)
[2016-10-02] MEDS: LEVOTHYROXINE SODIUM 150 MCG TAB PO SCH (05:56)
[2016-10-02 08:00] VITALS: BP 136/64; PULSE 82; RESP 14; TEMP 98; O2SAT 95
[2016-10-02 08:27] LABS: INTERNATIONAL NORMALIZED RATIO 1.1 RATIO
[2016-10-02] MEDS: FUROSEMIDE 20 MG TAB PO SCH (10:46)
[2016-10-02] MEDS: LISINOPRIL 20 MG TAB PO SCH ×2 (10:46→22:04)
[2016-10-02] MEDS: PARoxetine HCL 20 MG TAB PO SCH (10:46)
[2016-10-02] MEDS: ATENOLOL 50 MG TAB PO SCH (10:46)
[2016-10-02] MEDS: guaiFENesin E.R. 600 MG TAB PO SCH ×2 (10:46→22:07)
[2016-10-02] MEDS: CALCIUM CARBONATE 500 MG CHEWABLE TAB CHEW SCH ×2 (10:46→22:03)
[2016-10-02] MEDS: CHOLECALCIFEROL (VIT D3) 1000 UNIT TAB PO SCH (10:46)
[2016-10-02] MEDS: predniSONE 10 MG TAB PO SCH ×2 (10:46→22:04)
[2016-10-02] MEDS: MORPHINE SULFATE 15 MG CONTROLLED RELEASE TAB PO SCH ×2 (10:47→22:05)
--- NOTE | 2016-10-02 10:47 | HHI.PR ---
Subjective Remarks remains with some cough, little sputum no fever no cp appetite okay no n/v no hematuria anxious to go home daughter at bsd Objective Objective Results - Vital Signs Date Time Temp Pulse Resp B/P Pulse Ox O2 Delivery O2 Flow Rate FiO2 10/02/16 08:00 98.0 82 14 136/64 95 10/02/16 05:30 97.5 63 16 144/77 97 10/02/16 00:00 99.2 67 16 123/63 97 10/01/16 22:40 Room Air 10/01/16 22:40 95 133/69 10/01/16 20:00 98.2 74 16 108/61 95 10/01/16 16:00 97.8 89 20 126/58 97 10/01/16 15:27 97 21 10/01/16 12:00 96.8 73 20 118/92 97 I/O 10/01/16 10/01/16 10/01/16 10/02/16 10/02/16 10/02/16 07:00 15:00 23:00 07:00 15:00 23:00 Intake Total 600 ml 960 ml 150 ml Output Total 1275 ml 1000 ml 1000 ml Balance -675 ml -40 ml -850 ml Intake Oral 480 ml 960 ml 150 ml IV Total 120 ml Output Urine Total 1275 ml 1000 ml 1000 ml # Voids 1 2 # Bowel Movements 0 Result Diagram: 10/01/16 0648 10/01/16 0648 Imaging Last Impressions Abdomen/Pelvis CT 09/23/16 0515 Signed Impressions: Service Date/Time: Friday, September 23, 2016 05:42 - CONCLUSION: 1. Abnormal bowel gas pattern with apparent inflammatory change and enhancement in the right upper quadrant the proximal small bowel and mid ileum. The findings are nonspecific. 2. Post surgical changes status post colonic resection. There is an ostomy in the right lower quadrant. 3. Anasarca. 4. The common bile duct appears prominent and measures up to 1 cm. Mandeep Abbasi MD Chest X-Ray 09/23/16 0315 Signed Impressions: Service Date/Time: Friday, September 23, 2016 03:14 - CONCLUSION: No acute disease. Status post median sternotomy. Mandeep Abbasi MD Other Results Laboratory Tests Test 10/02/16 07:02 Prothrombin Time 12.0 Prothromb Time International 1.1 Ratio Date/Time Procedure Status Source Growth 09/29/16 20:35 Aerobic Blood Culture - Preliminary Resulted Blood Peripheral NO GROWTH IN 2 DAYS 09/29/16 20:35 Anaerobic Blood Culture - Preliminary Resulted Blood Peripheral NO GROWTH IN 2 DAYS 09/29/16 09:15 Gram Stain - Final Complete Sputum Expectorated Sputum 09/29/16 09:15 Sputum Culture - Final Complete Sputum Expectorated Sputum HEAVY GROWTH NORMAL RESPIRATORY MATTHEW ROS General: No: Fatigue, Weakness HEENT: No: Sore Throat, Dysphagia Cardiac: No: Chest Pain, Edema, Palpitations Pulmonary: Cough, Wheezing GI: No: Abdominal Pain, BM, Diarrhea, N/V /MACHINE PLASTER MIXER: No: Dysuria, Urgency Neuro/MS: No: Lightheaded, Confusion Psych: No: Anxiety, Depression Skin: No: Itching, Rash Physical Exam Physical Exam GENERAL: This is a well-nourished, well-developed patient, in no apparent distress. SKIN: No rashes, ecchymoses or lesions. Cool and dry. HEAD: Atraumatic. Normocephalic. No temporal or scalp tenderness. EYES: Pupils equal round and reactive. Extraocular motions intact. No scleral icterus. No injection or drainage. ENT: Nose without bleeding, purulent drainage or septal hematoma. Throat without erythema, tonsillar hypertrophy or exudate. Uvula midline. Airway patent. NECK: Trachea midline. No JVD or lymphadenopathy. Supple, nontender, no meningeal signs. CARDIOVASCULAR: Regular rate and rhythm without murmurs, gallops, or rubs. RESPIRATORY: coarse ronchi throughout : ileal conduit with light maria m urine. GASTROINTESTINAL: Abdomen soft, non-tender, nondistended. No hepato-splenomegaly , or palpable masses. No guarding. MUSCULOSKELETAL: Extremities without clubbing, cyanosis, or edema. No joint tenderness, effusion, or edema noted. No calf tenderness. Negative Homans sign bilaterally. NEUROLOGICAL: Awake and alert. Cranial nerves II through XII intact. Motor and sensory grossly within normal limits. Five out of 5 muscle strength in all muscle groups. Normal speech. Urinary Catheter: No Vascular Central Line Catheter: No A/P Diagnosis: (1) Hematuria (2) Anticoagulated by anticoagulation treatment (3) Thrombocytopenia (4) COPD exacerbation (5) Breast cancer, left (6) Hx pulmonary embolism (7) Hx of deep venous thrombosis (8) COPD with exacerbation (9) HTN (hypertension) (10) Bronchitis (11) Hx of bladder cancer (12) UTI (urinary tract infection) (13) Hyperglycemia Assessment and Plan 86-year-old elderly white female recently presents to ED with hematuria x 3 episodes. Hx of bladder cancer, had cystectomy. Pt. takes Eliquis. Was noted with thrombocytopenia, platelets trending down. Hematuria -Urology input appreciated, no further recommendations. Recommends to correct coagulopathy. Pt can f/u annually -HH stable, hematuria resolving UTI -Ent. faecium -repeat UA okay Thrombocytopenia-susp. TTP per onc. doubtful TTP since ADAMTS okay. -FFP given -ADAMTS 13 okay -appreciate hematology input- -PPE tx started 09/26, had 5 treatments -platelets today pending, but they have been improving. -LDH trending down -per onc notes review, recommends future anticoagulation with Coumadin. Elevated LFTs Elevated T. bili Elevated Alk phosph -GI consulted, input appreciate. Liver work up in progress. -HIDA scan done, no acute findings Recent admission for COPD exacerbation, with bronchitis- cough remains, not improving. -Continue PO steroids -Continue DuoNeb's Continue with Tessalon when necessary Mucinex 600 mg by mouth twice a day -continues with cough, diffuse ronchi. -CT chest- showed small pleural effusion, atelectasis, scarring. -appreciate pulm input -continue Acappella -although her lung sounds congest, pt. not complaining of any SOB, sats 95 on RA , no fever. Cough has improved, minimal sputum. Mild CHF -CXR mild worsening left lower zone -diuresing well after IV lasix, will continue Lasix 20 mg po daily for a few days -BNP mildly elevated, 170 -2D echo EF 65-70% History DVT and PE Continue to hold Eliquis until further evaluation for thrombocytopenia. Hypertension, uncontrolled better controlled Continue home medications -continue PRN BP meds Left breast cancer, recently diagnosed. Patient due to have lumpectomy with Dr. Schroeder in September. She is also to have radiation Prior history of bladder cancer, neuroendocrine malignancy Patient to follow-up with radiation oncology as outpatient when stable -per Dr. Meza, may be starting on Arimidex. Recent EGD with dilatation, their concern the patient continues to cough and may be choking on food Swallow evaluation done, recommendations noted. -No signs and symptoms of aspiration noted -instructed to slow down when she eats, sit up . Hyperglycemia, likely secondary to steroids -Continue with low-dose insulin for sliding scale, blood glucose elevated secondary to steroids. Inc. activity, ok to ambulate SCDs DVT prophylaxis CM consult for DC planning, HHC Poss dc tomorrow once cleared by all consultants. CBC pending Discussed with RN Discussed with patient Discussed with Dr. Monroy This patient was seen by myself and Dr. Monroy, this note is written on her behalf Problem Qualifiers (1) Hematuria: Qualified Code: R31.0 - Gross hematuria (2) Breast cancer, left: Qualified Code: C50.912 - Malignant neoplasm of left female breast, unspecified estrogen receptor status, unspecified site of breast (3) HTN (hypertension): Qualified Code: I10 - Essential hypertension (4) UTI (urinary tract infection): Qualified Code: N39.0 - Urinary tract infection with hematuria, site unspecified Linda Land Oct 02, 2016 10:47
--- NOTE | 2016-10-02 10:48 | HHI.FF ---
Face to Face Verification Diagnosis: (1) Thrombocytopenia (2) COPD exacerbation Physical Therapy Order: Evaluate and Treat Home Health Nursing Order: Medical education Signs/symptoms of disease process Nursing assessment with vital signs I have seen patient Bonnie Hill on 10/02/16. My clinical findings support the need for the requested home health care services because: Patient has SOB Deconditioned w/ increased weakness I certify that my clinical findings support that this patient is homebound because: Hx COPD- exertion dyspnea/weakness Unsafe to leave home unassisted Need for psychosocial assistance Linda Land [facility] Oct 02, 2016 10:48
[2016-10-02] MEDS: SODIUM CHLORIDE 0.9% FLUSH 10 ML FLUSH IV FLUSH SCH ×2 (10:55→22:03)
[2016-10-02] MEDS: BUDESONIDE-FORMOTEROL 80/4.5 MCG INHALER INH SCH ×2 (10:55→22:09)
[2016-10-02] MEDS: POLYETHYLENE GLYCOL 17 GM PKG PO SCH (10:55)
[2016-10-02 12:00] VITALS: BP 152/69; PULSE 69; RESP 14; TEMP 98.7; O2SAT 96
--- NOTE | 2016-10-02 13:05 | PD.ONC.PN ---
Subjective Subjective Remarks Afebrile overnight. Patient resting in bed in nad. Objective Data Date Time Temp Pulse Resp B/P Pulse Ox O2 Delivery O2 Flow Rate FiO2 10/02/16 08:00 98.0 82 14 136/64 95 10/02/16 05:30 97.5 63 16 144/77 97 10/02/16 00:00 99.2 67 16 123/63 97 10/01/16 22:40 Room Air 10/01/16 22:40 95 133/69 10/01/16 20:00 98.2 74 16 108/61 95 10/01/16 16:00 97.8 89 20 126/58 97 10/01/16 15:27 97 21 10/02/16 10/02/16 10/02/16 07:00 15:00 23:00 Intake Total 150 ml Output Total 1000 ml Balance -850 ml Result Diagram: 10/01/16 0648 10/01/16 0648 Laboratory Results Laboratory Tests Test 10/02/16 07:02 Prothrombin Time 12.0 SEC Prothromb Time International 1.1 RATIO Ratio Culture Results Microbiology Date/Time Procedure Status Source Growth 09/29/16 20:30 Aerobic Blood Culture - Preliminary Resulted Blood Peripheral NO GROWTH IN 3 DAYS 09/29/16 20:30 Anaerobic Blood Culture - Preliminary Resulted Blood Peripheral NO GROWTH IN 3 DAYS 09/29/16 20:35 Aerobic Blood Culture - Preliminary Resulted Blood Peripheral NO GROWTH IN 3 DAYS 09/29/16 20:35 Anaerobic Blood Culture - Preliminary Resulted Blood Peripheral NO GROWTH IN 3 DAYS Administered Medications Medications (Trade) Dose Ordered Sig/Jasmina Route PRN Reason Start Time Stop Time Status Last Admin Dose Admin Sodium Chloride (NS Flush) 2 ml UNSCH PRN IV FLUSH FLUSH AFTER USING IV ACCESS 09/23/16 06:15 10/02/16 03:50 Sodium Chloride (NS Flush) 2 ml BID IV FLUSH 09/23/16 09:00 10/02/16 10:55 Acetaminophen (Tylenol) 650 mg Q4H PRN PO TEMP > 100.4 09/23/16 06:15 10/01/16 16:23 Ondansetron HCl (Zofran Inj) 4 mg Q6H PRN IVP NAUSEA OR VOMITING 09/23/16 06:15 09/26/16 15:15 Morphine Sulfate (Morphine Inj) 2 mg Q3H PRN IV PUSH pain 6-10 09/23/16 06:15 10/01/16 19:28 Morphine Sulfate (Morphine Inj) 1 mg Q3H PRN IV PUSH pain 3-5 09/23/16 06:15 10/01/16 09:55 Atenolol (Tenormin) 50 mg DAILY PO 09/23/16 09:00 10/02/16 10:46 Benzonatate (Tessalon) 100 mg TID PRN PO COUGH 09/23/16 07:30 09/28/16 00:13 Budesonide/ Formoterol Fumarate (Symbicort 80-4.5 Mcg Inh) 2 puff Q12HR INH 09/23/16 09:00 10/02/16 10:55 Hydralazine HCl (Apresoline) 25 mg Q8HR PO 09/23/16 14:00 10/02/16 05:56 Levothyroxine Sodium (Synthroid) 150 mcg DAILY@06 PO 09/23/16 07:39 10/02/16 05:56 Lisinopril (Prinivil) 20 mg Q12HR PO 09/23/16 09:00 10/02/16 10:46 Mirtazapine (Remeron) 45 mg HS PO 09/23/16 21:00 10/01/16 22:44 Montelukast Sodium (Singulair) 10 mg HS PO 09/23/16 21:00 10/01/16 22:43 Paroxetine HCl (Paxil) 30 mg DAILY PO 09/23/16 09:00 10/02/16 10:46 Morphine Sulfate (Oramorph Sr) 15 mg BID PO 09/23/16 10:00 10/02/16 10:47 Guaifenesin (Mucinex Er) 1,200 mg BID PO 09/25/16 21:00 10/02/16 10:46 Furosemide (Lasix) 20 mg DAILY PO 09/29/16 09:00 10/02/16 10:46 Polyethylene Glycol 17 gm 17 gm Q24H PRN PO CONSTIPATION 09/28/16 23:15 09/29/16 00:13 Cefepime HCl/ Sodium Chloride (Maxipime Inj/NS Inj) 100 ml @ 200 mls/hr Q12H IV 09/29/16 14:00 10/02/16 02:54 Prednisone (Deltasone) 10 mg BID PO 09/29/16 21:00 10/02/16 10:46 Polyethylene Glycol (Miralax) 17 gm DAILY PO 09/30/16 16:00 10/02/16 10:55 Calcium Carbonate (Tums Chew) 500 mg Q12HR CHEW 09/30/16 21:00 10/02/16 10:46 Cholecalciferol (Vitamin D3) 1,000 units DAILY PO 10/02/16 09:00 10/02/16 10:46 Objective Remarks GENERAL: Elderly female sleeping supine in bed SKIN: Warm and dry. HEAD: Normocephalic. EYES: No injection or drainage. NECK: Supple, trachea midline. CARDIOVASCULAR: +S1/S2 RESPIRATORY: scattered rhonchi all lung lockhart. GASTROINTESTINAL: Abdomen soft, non-tender, nondistended. EXTREMITIES: No cyanosis NEUROLOGICAL: sleeping on approach, easily awakened. Assessment/Plan Problem List: (1) Thrombocytopenia Status: Acute Plan: --plasma exchange from 8.3 to 8.7 - 09/27: LDH falling, platelet count marginally improved. continue plasma exchange --09/28: platelets improved to 70K, LDH fell. monitor. await ADAMS13. --09/29: monitor CBC, LDH, continue plasma exchange --09/30: platelets continuing to improved today --10/01: platelets recovered (2) COPD exacerbation Status: Acute Plan: --D'veliz following recommended IS, Acapella, Prednisone BID, Duonebs --CT chest shows small pleural effusion, atelectasis, scarring. (3) Hx of bladder cancer Status: Acute Plan: --further care will be outpatient in clinic Assessment 86-year-old female with history of bladder cancer admitted with hematuria and thrombocytopenia Plan 1. await CBC today. 2. clear for discharge from hematology perspective. 3. follow up in clinic. Attending Statement The exam, history, and the medical decision-making described in the above note were completed with the assistance of the mid-level provider. I reviewed and agree with the findings presented. I attest that I had a [id number] encounter with the patient on the same day, and personally performed and documented my assessment and findings in the medical record. No complaints. Plan to have pheresis catheter removed tomorrow. Platelets continue to recover. Hgb stable. No hematuria. Discussed using Lovenox 40mg sq daily x 10 days until her surgery for breast. Anticipate putting her on Coumadin after breast surgery. Concern that we need an anticoagulant we can reverse due to hematuria. Brandie Mathis Oct 02, 2016 13:05 Donna Meza MD Oct 03, 2016 08:28
[2016-10-02 13:38] LABS: BASOPHIL # 0.1 TH/MM3 (0-0.2); EOSINOPHIL # 0.3 TH/MM3 (0-0.4); EOSINOPHIL % 3.3 % (0.0-4.0); HEMO FLAGS DIFF FINAL; LYMPH % 13.1 % (9.0-44.0); LYMPHOCYTE # 1.1 TH/MM3 (1.0-4.8); MEAN CELL VOLUME 93.8 FL (80.0-100.0); MEAN CORPUSCULAR HEMOGLOBIN 31.5 PG (27.0-34.0); MEAN CORPUSCULAR HGB CONC 33.6 % (32.0-36.0); NEUT % 72.6 % (16.0-70.0); PLATELET COUNT 102 TH/MM3 (150-450); RED BLOOD COUNT 3.41 MIL/MM3 (4.00-5.30); RED CELL DISTRIBUTION WIDTH 15.7 % (11.6-17.2); WHITE BLOOD COUNT 8.2 TH/MM3 (4.0-11.0)
--- NOTE | 2016-10-02 14:00 | HHI.GIFU ---
Subjective Remarks Up in chair. No n/v/abdominal pain at this time. States she had an esophageal dilatation about 2 months ago and that she is not having any problems with food getting caught as long as she is sitting upright to eat. Objective Vitals I&O Vital Signs Date Time Temp Pulse Resp B/P Pulse Ox O2 Delivery O2 Flow Rate FiO2 10/02/16 13:16 16 10/02/16 12:00 98.7 69 14 152/69 96 10/02/16 08:00 98.0 82 14 136/64 95 10/02/16 05:30 97.5 63 16 144/77 97 10/02/16 00:00 99.2 67 16 123/63 97 10/01/16 22:40 Room Air 10/01/16 22:40 95 133/69 10/01/16 20:00 98.2 74 16 108/61 95 10/01/16 16:00 97.8 89 20 126/58 97 10/01/16 15:27 97 21 I/O 10/01/16 10/01/16 10/01/16 10/02/16 10/02/16 10/02/16 07:00 15:00 23:00 07:00 15:00 23:00 Intake Total 600 ml 960 ml 150 ml Output Total 1275 ml 1000 ml 1000 ml Balance -675 ml -40 ml -850 ml Intake Oral 480 ml 960 ml 150 ml IV Total 120 ml Output Urine Total 1275 ml 1000 ml 1000 ml # Voids 1 2 # Bowel Movements 0 Laboratory Laboratory Tests Test 10/02/16 10/02/16 07:02 12:34 Prothrombin Time 12.0 Prothromb Time International 1.1 Ratio White Blood Count 8.2 Red Blood Count 3.41 Hemoglobin 10.8 Hematocrit 32.0 Mean Corpuscular Volume 93.8 Mean Corpuscular Hemoglobin 31.5 Mean Corpuscular Hemoglobin 33.6 Concent Red Cell Distribution Width 15.7 Platelet Count 102 Mean Platelet Volume 8.0 Neutrophils (%) (Auto) 72.6 Lymphocytes (%) (Auto) 13.1 Monocytes (%) (Auto) 10.0 Eosinophils (%) (Auto) 3.3 Basophils (%) (Auto) 1.0 Neutrophils # (Auto) 6.0 Lymphocytes # (Auto) 1.1 Monocytes # (Auto) 0.8 Eosinophils # (Auto) 0.3 Basophils # (Auto) 0.1 CBC Comment DIFF FINAL Differential Comment Date/Time Procedure Status Source Growth 09/29/16 20:35 Aerobic Blood Culture - Preliminary Resulted Blood Peripheral NO GROWTH IN 3 DAYS 09/29/16 20:35 Anaerobic Blood Culture - Preliminary Resulted Blood Peripheral NO GROWTH IN 3 DAYS 09/29/16 09:15 Gram Stain - Final Complete Sputum Expectorated Sputum 09/29/16 09:15 Sputum Culture - Final Complete Sputum Expectorated Sputum HEAVY GROWTH NORMAL RESPIRATORY MATTHEW Imaging Last Impressions Chest CT 09/29/16 0000 Signed Impressions: Service Date/Time: Thursday, September 29, 2016 15:50 - CONCLUSION: 1. Small left pleural effusion slightly increased from September 23. There is basal atelectasis and scarring. 2. Postoperative median sternotomy and aortic valve replacement. Right central line tip in right atrium. 3. 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 4. Mild anasarca, especially in the upper abdominal region with dilatation of the visualized stomach and proximal small bowel and mild ascites. Leonel Dietz MD Chest X-Ray 09/27/16 0000 Signed Impressions: Service Date/Time: Tuesday, September 27, 2016 15:52 - CONCLUSION: 1. Mild worsening left lower lung zone atelectasis. Taz Loomis MD Catheter Placement X-Ray 09/26/16 0000 Signed Impressions: Service Date/Time: September 14:22 - CONCLUSION: Uncomplicated line placement as above. Taz Loomis MD Hepatobiliary Scan Nuclear Medicine 09/25/16 0000 Signed Impressions: Service Date/Time: Sunday, September 25, 2016 07:58 - CONCLUSION: There is no evidence for common duct obstruction. Andreas Ogden MD FACR Abdomen/Pelvis CT 09/23/16 0515 Signed Impressions: Service Date/Time: Friday, September 23, 2016 05:42 - CONCLUSION: 1. Abnormal bowel gas pattern with apparent inflammatory change and enhancement in the right upper quadrant the proximal small bowel and mid ileum. The findings are nonspecific. 2. Post surgical changes status post colonic resection. There is an ostomy in the right lower quadrant. 3. Anasarca. 4. The common bile duct appears prominent and measures up to 1 cm. Mandeep Abbasi MD Physical Exam HEENT: Normocephalic PULM: Coarse breath sounds with expiratory wheezing CARDIAC: irr HR ABDOMEN: Soft, nondistended, nontender; no hepatosplenomegaly; bowel sounds are present in all four quadrants, ileal conduit with drainage bag with clear yellow urine EXTREMITIES: No clubbing, cyanosis, or edema. SKIN: no rash; no jaundice. ecchymosis right hand TURN OPERATOR: No focal deficits; alert and oriented times three. Assessment and Plan Plan ASSESSMENT: - Elevated LFTs. She reports long history of LFTs "fluctuating" but denies any known underlying liver disease such as cirrhosis. No ETOH. No family hx of liver disease. Hepatitis panel negative. Abdomen/Pelvis CT (09/23/16)---> 1. Abnormal bowel gas pattern with apparent inflammatory change and enhancement in the right upper quadrant the proximal small bowel and mid ileum. The findings are nonspecific. 2. Post surgical changes status post colonic resection. There is an ostomy in the right lower quadrant. 3. Anasarca. 4. The common bile duct appears prominent and measures up to 1 cm. HIDA (09/25/16)----> There is no evidence for common duct obstruction. Occasional nausea, mild abdominal discomfort- related to coughing. Hepatitis panel negative. AFP 3.5, PAKO negative, ASMA negative, AMA < 20.0, Ceruloplasmin 26, Alpha 1 antitrypsin 109. LFTs improving. T. Bili 0.2, AST 38, ALT 39, Alk Phosph 116. - Constipation. Miralax - Acute thrombocytopenia/coagulopathy, unclear etiology. Hematology following for the acute thrombocytopenia with elevated LDH and low haptoglobin, low fibrinogen. It is unclear at this time, if this is related to underlying liver disease vs hemolysis, TTP. She is being treated with steroids, FFP Plasma exchange per hematology - Hematuria. HH stable S/P evaluation, recommended conservative management with correction of underlying coagulopathy. - Hx recurrent DVT/PE. Eliquis - Hx Bladder cancer, S/P radical cystectomy and ileal conduit urinary diversion in without evidence of recurrent disease - Hx Colon cancer, s/p resection without chemotherapy or radiation - COPD, Bronchitis, HTN, UTI per attending. PLAN: - ELIZA - Miralax - Monitor LFTs - Supportive care - Further recommendations to follow based on results of above - Pt seen and examined by Dr. Almonte and myself and this note is written on his behalf Lisbet Mace Oct 02, 2016 14:00
[2016-10-02] MEDS: RESP: ALBUTEROL 2.5 MG/IPRATROPIUM 0.5 MG NEB (PRN) NEB ×2 (14:33→18:55)
[2016-10-02] MEDS: MORPHINE SULFATE 4 MG/ML INJ IV PUSH PRN ×2 (15:07→19:16)
[2016-10-02] MEDS ORDERED: PRED10 PO (15:19)
[2016-10-02 16:00] VITALS: BP 129/62; PULSE 83; RESP 12; TEMP 99; O2SAT 94
--- NOTE | 2016-10-02 17:39 | HHI.PR ---
Subjective Remarks 86 YOWF with COPD exac, Thrombocytopenia,ca breast and Bladder Mild sob On RA Ambulates Uses Acapella Small amount of sp " Has rattling in chest, but I feel fine" Objective Vital Signs Vital Signs Date Time Temp Pulse Resp B/P Pulse Ox O2 Delivery O2 Flow Rate FiO2 10/02/16 16:00 99.0 83 12 129/62 94 10/02/16 13:16 16 10/02/16 12:00 98.7 69 14 152/69 96 10/02/16 08:00 98.0 82 14 136/64 95 10/02/16 05:30 97.5 63 16 144/77 97 10/02/16 00:00 99.2 67 16 123/63 97 10/01/16 22:40 Room Air 10/01/16 22:40 95 133/69 10/01/16 20:00 98.2 74 16 108/61 95 I/O 10/01/16 10/01/16 10/01/16 10/02/16 10/02/16 10/02/16 07:00 15:00 23:00 07:00 15:00 23:00 Intake Total 600 ml 960 ml 150 ml 472 ml Output Total 1275 ml 1000 ml 1000 ml Balance -675 ml -40 ml -850 ml 472 ml Intake Oral 480 ml 960 ml 150 ml 472 ml IV Total 120 ml Output Urine Total 1275 ml 1000 ml 1000 ml # Voids 1 2 3 # Bowel Movements 0 1 Result Diagram: 10/02/16 1234 10/01/16 0648 Objective Remarks GENERAL: MBMN, mild sob SKIN: Warm and dry. HEAD: Normocephalic. EYES: No scleral icterus. No injection or drainage. NECK: Supple, trachea midline. No JVD or lymphadenopathy. CARDIOVASCULAR: Regular rate and rhythm without murmurs, gallops, or rubs. RESPIRATORY: Breath sounds equal bilaterally. No accessory muscle use. GASTROINTESTINAL: Abdomen soft, non-tender, nondistended. MUSCULOSKELETAL: No cyanosis, or edema. BACK: Nontender without obvious deformity. No CVA tenderness. A/P Assessment and Plan COPD Exac Thrombocttopenia H/O Ca breast Ca Bladder HTN PLAN: Aerosol nebs PO Steroids Cont Abx Monitor platlets count OOB and ambulate DC plans for home DW . Satish Calabrese MD Oct 02, 2016 17:39
[2016-10-02 20:00] VITALS: BP 115/58; PULSE 78; RESP 16; TEMP 98.5; O2SAT 94
[2016-10-02] MEDS ORDERED: RESP: ALBUTEROL 2.5 MG/IPRATROPIUM 0.5 MG NEB (SCH) NEB (21:00)
[2016-10-02] MEDS: MIRTAZAPINE 15 MG TAB PO SCH (22:04)
[2016-10-02] MEDS: MONTELUKAST SODIUM 10 MG TAB PO SCH (22:04)
[2016-10-03] VITALS: BP 136/86; PULSE 75; RESP 16; TEMP 97.2; O2SAT 96
[2016-10-03] MEDS: CEFEPIME INJ 1,000 MG in SODIUM CHLORIDE 0.9% INJ 100 ML IV SCH (02:01)
[2016-10-03] MEDS: MORPHINE SULFATE 4 MG/ML INJ IV PUSH PRN ×2 (02:02→09:51)
[2016-10-03 04:00] VITALS: BP 130/60; PULSE 80; RESP 18; TEMP 98.2; O2SAT 94
[2016-10-03] MEDS: INSULIN ASPART SUPPLEMENTAL SCALE SQ SCH (06:26)
[2016-10-03] MEDS: LEVOTHYROXINE SODIUM 150 MCG TAB PO SCH (06:30)
[2016-10-03] MEDS: hydrALAZINE HCL 25 MG TAB PO SCH (06:30)
[2016-10-03 08:00] VITALS: BP 143/65; PULSE 81; RESP 20; TEMP 97.3; O2SAT 95
[2016-10-03] MEDS ORDERED: CHOLECALCIFEROL (VIT D3) 1000 UNIT TAB PO SCH (09:00)
[2016-10-03 09:30] VITALS: O2SAT 98
[2016-10-03 09:47] LABS: INTERNATIONAL NORMALIZED RATIO 1.1 RATIO; PROTHROMBIN TIME - PATIENT 11.9 SEC (9.8-11.6)
[2016-10-03] MEDS: CHOLECALCIFEROL (VIT D3) 1000 UNIT TAB PO SCH (09:50)
[2016-10-03] MEDS: guaiFENesin E.R. 600 MG TAB PO SCH (09:51)
[2016-10-03] MEDS: LISINOPRIL 20 MG TAB PO SCH (09:51)
[2016-10-03] MEDS: predniSONE 10 MG TAB PO SCH (09:51)
[2016-10-03] MEDS: ATENOLOL 50 MG TAB PO SCH (09:51)
[2016-10-03] MEDS: MORPHINE SULFATE 15 MG CONTROLLED RELEASE TAB PO SCH (09:51)
[2016-10-03] MEDS: CALCIUM CARBONATE 500 MG CHEWABLE TAB CHEW SCH (09:51)
[2016-10-03] MEDS: FUROSEMIDE 20 MG TAB PO SCH (09:51)
[2016-10-03] MEDS: PARoxetine HCL 20 MG TAB PO SCH (09:51)
[2016-10-03 12:30] VITALS: BP 131/93; PULSE 70; RESP 19; TEMP 96.5; O2SAT 94
[2016-10-03] MEDS ORDERED: ENOX40P SQ (13:03)
--- NOTE | 2016-10-03 13:06 | PD.ONC.PN ---
Subjective Subjective Remarks Afebrile overnight. Feeling improved today. Ready to go home. Objective Data Date Time Temp Pulse Resp B/P Pulse Ox O2 Delivery O2 Flow Rate FiO2 10/03/16 12:30 96.5 70 19 131/93 94 10/03/16 09:30 98 10/03/16 08:00 97.3 81 20 143/65 95 10/03/16 04:00 98.2 80 18 130/60 94 10/03/16 00:00 97.2 75 16 136/86 96 10/02/16 22:05 Room Air 10/02/16 20:00 98.5 78 16 115/58 94 10/02/16 19:20 16 10/02/16 16:00 99.0 83 12 129/62 94 10/02/16 13:16 16 10/03/16 10/03/16 10/03/16 06:59 14:59 22:59 Intake Total 360 ml Balance 360 ml Result Diagram: 10/02/16 1234 10/01/16 0648 Laboratory Results Laboratory Tests Test 10/02/16 10/03/16 14:54 08:51 Fibrinogen 174 mg/dL Prothrombin Time 11.9 SEC Prothromb Time International 1.1 RATIO Ratio Administered Medications Medications (Trade) Dose Ordered Sig/Jasmina Route PRN Reason Start Time Stop Time Status Last Admin Dose Admin Sodium Chloride (NS Flush) 2 ml UNSCH PRN IV FLUSH FLUSH AFTER USING IV ACCESS 09/23/16 06:15 10/02/16 03:50 Sodium Chloride (NS Flush) 2 ml BID IV FLUSH 09/23/16 09:00 10/02/16 22:03 Acetaminophen (Tylenol) 650 mg Q4H PRN PO TEMP > 100.4 09/23/16 06:15 10/01/16 16:23 Ondansetron HCl (Zofran Inj) 4 mg Q6H PRN IVP NAUSEA OR VOMITING 09/23/16 06:15 09/26/16 15:15 Morphine Sulfate (Morphine Inj) 2 mg Q3H PRN IV PUSH pain 6-10 09/23/16 06:15 10/03/16 09:51 Morphine Sulfate (Morphine Inj) 1 mg Q3H PRN IV PUSH pain 3-5 09/23/16 06:15 10/03/16 02:02 Atenolol (Tenormin) 50 mg DAILY PO 09/23/16 09:00 10/03/16 09:51 Benzonatate (Tessalon) 100 mg TID PRN PO COUGH 09/23/16 07:30 09/28/16 00:13 Budesonide/ Formoterol Fumarate (Symbicort 80-4.5 Mcg Inh) 2 puff Q12HR INH 09/23/16 09:00 10/02/16 10:55 Hydralazine HCl (Apresoline) 25 mg Q8HR PO 09/23/16 14:00 10/03/16 06:30 Levothyroxine Sodium (Synthroid) 150 mcg DAILY@06 PO 09/23/16 07:39 10/03/16 06:30 Lisinopril (Prinivil) 20 mg Q12HR PO 09/23/16 09:00 10/03/16 09:51 Mirtazapine (Remeron) 45 mg HS PO 09/23/16 21:00 10/02/16 22:04 Montelukast Sodium (Singulair) 10 mg HS PO 09/23/16 21:00 10/02/16 22:04 Paroxetine HCl (Paxil) 30 mg DAILY PO 09/23/16 09:00 10/03/16 09:51 Morphine Sulfate (Oramorph Sr) 15 mg BID PO 09/23/16 10:00 10/03/16 09:51 Guaifenesin (Mucinex Er) 1,200 mg BID PO 09/25/16 21:00 10/03/16 09:51 Furosemide (Lasix) 20 mg DAILY PO 09/29/16 09:00 10/03/16 09:51 Polyethylene Glycol 17 gm 17 gm Q24H PRN PO CONSTIPATION 09/28/16 23:15 09/29/16 00:13 Cefepime HCl/ Sodium Chloride (Maxipime Inj/NS Inj) 100 ml @ 200 mls/hr Q12H IV 09/29/16 14:00 10/03/16 02:01 Prednisone (Deltasone) 10 mg BID PO 09/29/16 21:00 10/03/16 09:51 Polyethylene Glycol (Miralax) 17 gm DAILY PO 09/30/16 16:00 10/02/16 10:55 Calcium Carbonate (Tums Chew) 500 mg Q12HR CHEW 09/30/16 21:00 10/03/16 09:51 Cholecalciferol (Vitamin D3) 1,000 units DAILY PO 10/02/16 09:00 10/03/16 09:50 Objective Remarks GENERAL: Elderly female upright in bed SKIN: Warm and dry. HEAD: Normocephalic. EYES: No injection or drainage. NECK: Supple, trachea midline. CARDIOVASCULAR: +S1/S2 RESPIRATORY: occasional rhonchi all lung lockhart. GASTROINTESTINAL: Abdomen soft, non-tender, nondistended. EXTREMITIES: No cyanosis NEUROLOGICAL: awake and alert, normal speech. Assessment/Plan Problem List: (1) COPD exacerbation Status: Acute Plan: --D'veliz following recommended IS, Acapella, Prednisone BID, Duonebs --CT chest shows small pleural effusion, atelectasis, scarring. (2) Hx of bladder cancer Status: Acute Plan: --further care will be outpatient in clinic (3) Thrombocytopenia Status: Resolved Plan: --platelets recovered Assessment 86-year-old female with history of bladder cancer admitted with hematuria and thrombocytopenia Plan 1. clear for discharge from hematology perspective. 2. follow up in clinic. 3. will d/c on Lovenox 40mg SQ daily. patient advised to stop Lovenox 2 days before following up with Dr. Schroeder for procedure Brandie Mathis Oct 03, 2016 13:05 1. clear for discharge from hematology perspective. 2. follow up in clinic. 3. will d/c on Lovenox 40mg SQ daily. patient advised to stop Lovenox 2 days before following up with Dr. Schroeder for procedure Brandie Mathis Oct 03, 2016 13:05
--- NOTE | 2016-10-03 13:29 | HHI.PR ---
Subjective Remarks Sitting up in chair looking out the window Alert oriented cooperative Excited about going home Course cough continues, but breath sounds much improved (Radha Shanks) Objective Objective Results - Vital Signs Date Time Temp Pulse Resp B/P Pulse Ox O2 Delivery O2 Flow Rate FiO2 10/03/16 12:30 96.5 70 19 131/93 94 10/03/16 09:30 98 10/03/16 08:00 97.3 81 20 143/65 95 10/03/16 04:00 98.2 80 18 130/60 94 10/03/16 00:00 97.2 75 16 136/86 96 10/02/16 22:05 Room Air 10/02/16 20:00 98.5 78 16 115/58 94 10/02/16 19:20 16 10/02/16 16:00 99.0 83 12 129/62 94 I/O 10/02/16 10/02/16 10/02/16 10/03/16 10/03/16 10/03/16 06:59 14:59 22:59 06:59 14:59 22:59 Intake Total 150 ml 472 ml 360 ml 360 ml Output Total 1000 ml Balance -850 ml 472 ml 360 ml 360 ml Intake Oral 150 ml 472 ml 360 ml 360 ml Output Urine Total 1000 ml # Voids 2 3 1 2 # Bowel Movements 0 1 1 0 (Radha Shanks) Result Diagram: 10/02/16 1234 10/01/16 0648 ROS General: Other (10 point ROS done positives noted) Pulmonary: Cough (Radha Shanks) Physical Exam Physical Exam PHYSICAL EXAMINATION GENERAL: This is a elderly female who appears to be in no acute distress. She is alert and awake, HEAD: Normocephalic without any lesion or mass noted. Facial features appear symmetric. OROPHARYNGEAL: Oropharynx without erythema or edema. NECK: Supple. Trachea midline without deviation. CARDIAC: Regular rhythm, regular rate, S1 and S2 LUNGS: Coarse rhonchi with improved area patient to auscultation bilaterally. ABDOMEN: Soft, nontender, no organomegaly or masses. Bowel sounds are heard in all four quadrants. No rebound. No guarding. EXTREMITIES: No lower extremity edema. Pulses equal bilateral. NEUROLOGICAL: Patient mood and affect appropriate. No focal deficit SKIN:Warm and moist (Radha Shanks) A/P Assessment and Plan (1) Hematuria (2) Anticoagulated by anticoagulation treatment (3) Thrombocytopenia (4) COPD exacerbation (5) Breast cancer, left (6) Hx pulmonary embolism (7) Hx of deep venous thrombosis (8) COPD with exacerbation (9) HTN (hypertension) (10) Bronchitis (11) Hx of bladder cancer (12) UTI (urinary tract infection) (13) Hyperglycemia Hematuria, resolving Will follow up with urology on an annual basis Hemoglobin stable UTI, resolved Thrombocytopenia Platelets have continued slow improvement, appreciate hematology input Will follow up on an outpatient basis Will be going home on Lovenox and Coumadin therapy COPD exacerbation, with bronchitis-, mild improvement continues, will be followed on an outpatient basis and maintain medical management Still has some coarse rhonchi patient continues to cough, very dig load to use incentive spirometry Encouraged to cough and expel sputum, activity with frequent rest periods Will follow up with pulmonary on an outpatient basis Mild CHF, controlled, will need to be monitored per PCP on an outpatient basis, coverage patient to note any peripheral edema and shortness of breath to her PCP -2D echo EF 65-70% Hypertension, uncontrolled on admission now resolved, medical management CM consult for DC planning, HHC and home today, all discharge instructions given per myself as well as nursing staff and Dr. Monroy Hand written scripts given for lisinopril and hydralazine with instructions Discussed with RN Discussed with patient Discussed with Dr. Monroy, seen on his behalf (Radha Shanks) Assessment and Plan seen, examined by myself, Dr Monroy, today Discussed with patient and her daughter, patient is ready for discharge home Discussed with mid level provider The exam, history, and the medical decision-making described in the above note were completed with the assistance of the mid-level provider. I reviewed the findings presented. I attest that I had a [id number] encounter with the patient on the same day, and personally performed and documented my assessment and findings in the medical record. (Fredis Monroy MD) Radha Shanks Oct 03, 2016 13:29 Fredis Monroy MD Oct 03, 2016 19:42
--- NOTE | 2016-10-03 13:49 | HHI.GIFU ---
Subjective Remarks Up in chair. States she is going home in a few minutes. Pain resolved. Tolerating solids. No n/v. No difficulty swallowing Objective Vitals I&O Vital Signs Date Time Temp Pulse Resp B/P Pulse Ox O2 Delivery O2 Flow Rate FiO2 10/03/16 12:30 96.5 70 19 131/93 94 10/03/16 09:30 98 10/03/16 08:00 97.3 81 20 143/65 95 10/03/16 04:00 98.2 80 18 130/60 94 10/03/16 00:00 97.2 75 16 136/86 96 10/02/16 22:05 Room Air 10/02/16 20:00 98.5 78 16 115/58 94 10/02/16 19:20 16 10/02/16 16:00 99.0 83 12 129/62 94 I/O 10/02/16 10/02/16 10/02/16 10/03/16 10/03/16 10/03/16 06:59 14:59 22:59 06:59 14:59 22:59 Intake Total 150 ml 472 ml 360 ml 360 ml Output Total 1000 ml Balance -850 ml 472 ml 360 ml 360 ml Intake Oral 150 ml 472 ml 360 ml 360 ml Output Urine Total 1000 ml # Voids 2 3 1 2 # Bowel Movements 0 1 1 0 Laboratory Laboratory Tests Test 10/02/16 10/03/16 14:54 08:51 Fibrinogen 174 Prothrombin Time 11.9 Prothromb Time International 1.1 Ratio Date/Time Procedure Status Source Growth 09/29/16 20:35 Aerobic Blood Culture - Preliminary Resulted Blood Peripheral NO GROWTH IN 4 DAYS 09/29/16 20:35 Anaerobic Blood Culture - Preliminary Resulted Blood Peripheral NO GROWTH IN 4 DAYS 09/29/16 09:15 Gram Stain - Final Complete Sputum Expectorated Sputum 09/29/16 09:15 Sputum Culture - Final Complete Sputum Expectorated Sputum HEAVY GROWTH NORMAL RESPIRATORY MATTHEW Imaging Last Impressions Chest CT 09/29/16 0000 Signed Impressions: Service Date/Time: Thursday, September 29, 2016 15:50 - CONCLUSION: 1. Small left pleural effusion slightly increased from September 23. There is basal atelectasis and scarring. 2. Postoperative median sternotomy and aortic valve replacement. Right central line tip in right atrium. 3. 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 4. Mild anasarca, especially in the upper abdominal region with dilatation of the visualized stomach and proximal small bowel and mild ascites. Leonel Dietz MD Chest X-Ray 09/27/16 0000 Signed Impressions: Service Date/Time: Tuesday, September 27, 2016 15:52 - CONCLUSION: 1. Mild worsening left lower lung zone atelectasis. Taz Loomis MD Catheter Placement X-Ray 09/26/16 0000 Signed Impressions: Service Date/Time: September 14:22 - CONCLUSION: Uncomplicated line placement as above. Taz Loomis MD Hepatobiliary Scan Nuclear Medicine 09/25/16 0000 Signed Impressions: Service Date/Time: Sunday, September 25, 2016 07:58 - CONCLUSION: There is no evidence for common duct obstruction. Andreas Ogden MD FACR Abdomen/Pelvis CT 09/23/16 0515 Signed Impressions: Service Date/Time: Friday, September 23, 2016 05:42 - CONCLUSION: 1. Abnormal bowel gas pattern with apparent inflammatory change and enhancement in the right upper quadrant the proximal small bowel and mid ileum. The findings are nonspecific. 2. Post surgical changes status post colonic resection. There is an ostomy in the right lower quadrant. 3. Anasarca. 4. The common bile duct appears prominent and measures up to 1 cm. Mandeep Abbasi MD Physical Exam HEENT: Normocephalic PULM: Coarse breath sounds with expiratory wheezing CARDIAC: irr HR ABDOMEN: Soft, nondistended, nontender; no hepatosplenomegaly; bowel sounds are present in all four quadrants, ileal conduit with drainage bag with clear yellow urine EXTREMITIES: No clubbing, cyanosis, or edema. SKIN: no rash; no jaundice. 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 Assessment and Plan Plan ASSESSMENT: - Elevated LFTs. She reports long history of LFTs "fluctuating" but denies any known underlying liver disease such as cirrhosis. No ETOH. No family hx of liver disease. Hepatitis panel negative. Abdomen/Pelvis CT (09/23/16)---> 1. Abnormal bowel gas pattern with apparent inflammatory change and enhancement in the right upper quadrant the proximal small bowel and mid ileum. The findings are nonspecific. 2. Post surgical changes status post colonic resection. There is an ostomy in the right lower quadrant. 3. Anasarca. 4. The common bile duct appears prominent and measures up to 1 cm. HIDA (09/25/16)----> There is no evidence for common duct obstruction. Occasional nausea, mild abdominal discomfort- related to coughing. Hepatitis panel negative. AFP 3.5, PAKO negative, ASMA negative, AMA < 20.0, Ceruloplasmin 26, Alpha 1 antitrypsin 109. LFTs improved - Constipation. Miralax, (+) BM. - Acute thrombocytopenia/coagulopathy, unclear etiology. Hematology following for the acute thrombocytopenia with elevated LDH and low haptoglobin, low fibrinogen. It is unclear at this time, if this is related to underlying liver disease vs hemolysis, TTP. She is being treated with steroids, FFP Plasma exchange per hematology - Hematuria. HH stable S/P evaluation, recommended conservative management with correction of underlying coagulopathy. - Hx recurrent DVT/PE. Eliquis - Hx Bladder cancer, S/P radical cystectomy and ileal conduit urinary diversion in 1987- without evidence of recurrent disease - Hx Colon cancer, s/p resection without chemotherapy or radiation - COPD, Bronchitis, HTN, UTI per attending. PLAN: - ELIZA - Miralax - FU AFSANEH 2-3 weeks, d/w patient and daughter - Pt seen and examined by Dr. Almonte and myself and this note is written on his behalf Lisbet Mace Oct 03, 2016 13:49
--- NOTE | 2016-10-03 16:03 | RADRPT ---
EXAM DATE/TIME: 10/03/2016 06:00 [facility] COMPARISON: No previous studies available for comparison. INDICATIONS : Patient presents with a history of breast cancer in need of dialysis catheter removal due to pheresi s exchange completion. MEDICAL HISTORY : COPD anxiety Arthritis Asthma CAD Amaurosis Fugax TIA Hyperlipidemia HTN Hypothyroid Bladder cancer, s/p cystectomy Recurrent neuroendocrine carcinoma Left breast cancer Recurrent DVT, PE SURGICAL HISTORY : Appendectomy AVR and single-vessel CABG in 2009 Cholecystectomy Cystectomy with ileal conduit EGD with dilatation Tonsillectomy Lymph node removal Bowel resection ENCOUNTER: Subsequent ACUITY: 1 week PAIN SCORE: 0/10 LOCATION: n/a IMAGE SERIES: 0 PROCEDURE : 1. Temporary central venous catheter removal. The prescribed catheter was removed intact and hemostasis was achieved with direct pressure. The sit e was dressed appropriately. The patient tolerated the procedure well. CONCLUSION: Uncomplicated catheter removal. Ky Torres MD on October 03, 2016 at 16:01 Board Certified Radiologist. This report was verified electronically.
--- NOTE | 2016-10-03 18:07 | HHI.DS ---
Discharge Summary Admission Date Sep 23, 2016 at 06:02 Discharge Date: Oct 03, 2016 Admitting Diagnosis Hematuria in ileal conduit, on eliquis, thrombocytopenia (1) Hematuria (2) Anticoagulated by anticoagulation treatment Diagnosis: Secondary (3) Thrombocytopenia Diagnosis: Principal (4) COPD exacerbation Diagnosis: Principal (5) Breast cancer, left Diagnosis: Secondary (6) Hx pulmonary embolism Diagnosis: Secondary (7) Hx of deep venous thrombosis Diagnosis: Secondary (8) COPD with exacerbation Diagnosis: Principal (9) HTN (hypertension) Diagnosis: Principal (10) Bronchitis Diagnosis: Principal (11) Hx of bladder cancer Diagnosis: Secondary (12) UTI (urinary tract infection) Diagnosis: Principal (13) Hyperglycemia Diagnosis: Principal Brief History This was a pleasant 86-year-old elderly female with significant past medical history of COPD not oxygen dependent, CAD, TIA, arthritis, bladder cancer status post cystectomy, neuroendocrine malignancy. Patient was recently diagnosed with left breast cancer, she was due to have lumpectomy October [address] Morris. Patient was discharged yesterday after been admitted on September 17 for COPD exacerbation with bronchitis. She was discharged on by mouth antibiotics and oral steroids in stable condition. Patient returned to the emergency room with an episode of waking up last night and noticing blood and ileal conduit bag. Indicated she had approximately 3 episodes. Patient took Eliquis for history of recurrent DVT and PE. She had history of bladder cancer and was following up with a urology oncologist in [place]. She had not established herself with urologist locally. She reported some lower abdomen pain. Denied any nausea, no vomiting. She continued to have some cough with sputum production, had chest pain that was associated with coughing. CBC/BMP: 10/02/16 1234 10/01/16 0648 Significant Findings Laboratory Tests Test 09/30/16 10/01/16 10/02/16 10/02/16 23:42 06:48 07:02 12:34 Fibrinogen 219 mg/dL 196 mg/dL (227-377) (227-377) Red Blood Count 3.26 MIL/MM3 3.41 MIL/MM3 (4.00-5.30) (4.00-5.30) Hemoglobin 10.4 GM/DL 10.8 GM/DL (11.6-15.3) (11.6-15.3) Hematocrit 30.9 % 32.0 % (35.0-46.0) (35.0-46.0) Platelet Count 96 TH/MM3 102 TH/MM3 (150-450) (150-450) Neutrophils (%) (Auto) 75.2 % 72.6 % (16.0-70.0) (16.0-70.0) Monocytes (%) (Auto) 10.2 % 10.0 % (0.0-8.0) (0.0-8.0) Platelet Estimate LOW (NORMAL) Ovalocytes 1+ (NORMAL) Activated Partial 23.7 SEC Thromboplast Time (24.3-30.1) Carbon Dioxide Level 34.4 MEQ/L (21.0-32.0) Blood Urea Nitrogen 22 MG/DL (7-18) Estimat Glomerular Filtration 81 ML/MIN (>89) Rate Calcium Level 8.3 MG/DL (8.5-10.1) Aspartate Amino Transf 38 U/L (15-37) (AST/SGOT) Lactate Dehydrogenase 256 U/L (84-246) Total Protein 5.4 GM/DL (6.4-8.2) Albumin 2.7 GM/DL (3.4-5.0) 25-Hydroxy Vitamin D Total 24.7 ng/ML (30-100) Prothrombin Time 12.0 SEC (9.8-11.6) Test 10/02/16 10/03/16 14:54 08:51 Fibrinogen 174 mg/dL (227-377) Prothrombin Time 11.9 SEC (9.8-11.6) Imaging Last Impressions Central Venous Line 10/03/16 0600 Signed Impressions: Service Date/Time: September 06:00 - CONCLUSION: Uncomplicated catheter removal. Ky Torres MD Chest CT 09/29/16 0000 Signed Impressions: Service Date/Time: Thursday, September 29, 2016 15:50 - CONCLUSION: 1. Small left pleural effusion slightly increased from September 23. There is basal atelectasis and scarring. 2. Postoperative median sternotomy and aortic valve replacement. Right central line tip in right atrium. 3. 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 4. Mild anasarca, especially in the upper abdominal region with dilatation of the visualized stomach and proximal small bowel and mild ascites. Leonel Dietz MD Chest X-Ray 09/27/16 Signed Impressions: Service Date/Time: Tuesday, September 27, 2016 15:52 - CONCLUSION: 1. Mild worsening left lower lung zone atelectasis. Taz Loomis MD Catheter Placement X-Ray 09/26/16 Signed Impressions: Service Date/Time: September 14:22 - CONCLUSION: Uncomplicated line placement as above. Taz Loomis MD Hepatobiliary Scan Nuclear Medicine 09/25/16 Signed Impressions: Service Date/Time: Sunday, September 25, 2016 07:58 - CONCLUSION: There is no evidence for common duct obstruction. Andreas Ogden MD FACR Abdomen/Pelvis CT 09/23/16 0515 Signed Impressions: Service Date/Time: Friday, September 23, 2016 05:42 - CONCLUSION: 1. Abnormal bowel gas pattern with apparent inflammatory change and enhancement in the right upper quadrant the proximal small bowel and mid ileum. The findings are nonspecific. 2. Post surgical changes status post colonic resection. There is an ostomy in the right lower quadrant. 3. Anasarca. 4. The common bile duct appears prominent and measures up to 1 cm. Mandeep Abbasi MD PE at Discharge GENERAL: This is a elderly female who appears to be in no acute distress. She is alert and awake, HEAD: Normocephalic without any lesion or mass noted. Facial features appear symmetric. OROPHARYNGEAL: Oropharynx without erythema or edema. NECK: Supple. Trachea midline without deviation. CARDIAC: Regular rhythm, regular rate, S1 and S2 LUNGS: Coarse rhonchi with improved area patient to auscultation bilaterally. ABDOMEN: Soft, nontender, no organomegaly or masses. Bowel sounds are heard in all four quadrants. No rebound. No guarding. EXTREMITIES: No lower extremity edema. Pulses equal bilateral. NEUROLOGICAL: Patient mood and affect appropriate. No focal deficit SKIN:Warm and moist Hospital Course Patient was evaluated in emergency room, laboratory workup was completed. H&H was stable, 14/41.2. Platelets were noted trending down from recent admission, currently 70. WBC 13.4. Was noted with elevated potassium level of 5.5. Renal function stable. CT of the abdomen and pelvis showed abnormal bowel gas pattern with apparent inflammatory change and enhancement in the right upper quadrant the proximal small bowel and mid ileum, findings nonspecific. Postsurgical changes status post colonic resection. Ostomy in the right lower quadrant. Anasarca., Bile duct appears prominent and measures up to 1 cm. Chest x-ray did not reveal any acute findings. Patient was given morphine and Zofran for complaining of pain and nausea. Her blood pressure was initially elevated and she will require hydralazine IV. Blood pressures now trending down. patient was sleepy, waked to voice but most of the questions are answered per her daughter. She had multiple questions and is requesting a urology oncology. I had explained to her that I urologist had been consulted and the patient was be evaluated for appropriate management. her H&H was stable and did not require any blood transfusion. There was blood-tinged urine noted in the ostomy, no clots are noted. Patient was hemodynamically stable. Patient was admitted for further evaluation and treatment. Patient diagnosis listed above are what was used to treat patient during this hospital stay. (1) Hematuria (2) Anticoagulated by anticoagulation treatment (3) Thrombocytopenia (4) COPD exacerbation (5) Breast cancer, left (6) Hx pulmonary embolism (7) Hx of deep venous thrombosis (8) COPD with exacerbation (9) HTN (hypertension) (10) Bronchitis (11) Hx of bladder cancer (12) UTI (urinary tract infection) (13) Hyperglycemia Patient's vital signs were monitored every 4 and when necessary for any abnormals and treated whenever necessary Patient had multiple labs monitored for her hypertension, bronchitis any fever, and significant monitoring of her hemoglobin and hematocrit due to her anemia and bleeding when she first came into the hospital. Consulting physicians included pulmonary Urology Hematology Hospitalist service And gastroenterology And she is to follow-up with oncology as an outpatient this next month Patient was treated for her UTI with antibiotic therapy, cultures blood and urine were noted. Urine was positive Systems listed below were treated and told patient was medically stable for discharge. Hematuria, resolved and stable, patient had been on Eliquix Will follow up with urology on an annual basis Hemoglobin stable UTI, resolved with antibiotic therapy Thrombocytopenia Platelets have continued slow improvement, appreciate hematology input Will follow up on an outpatient basis Will be going home on Lovenox and Coumadin therapy COPD exacerbation, with bronchitis-, mild improvement continues, will be followed on an outpatient basis and maintain medical management [employer] gave her aggressive therapy with Acapella, meds, incentive spirometry Still has some coarse rhonchi patient continues to cough, very dig load to use incentive spirometry Encouraged to cough and expel sputum, activity with frequent rest periods Will follow up with pulmonary on an outpatient basis Mild CHF, controlled, will need to be monitored per PCP on an outpatient basis, coverage patient to note any peripheral edema and shortness of breath to her PCP -2D echo EF 65-70% Hypertension, uncontrolled on admission now resolved, medical management CM consult for DC planning, home today with family. Hand written scripts given for lisinopril and hydralazine with instructions Discharge Disposition: Discharge Home Discharge Instructions DIET: Follow Instructions for: Heart Healthy Diet Activities you can perform: Weight Bearing as Kaye Follow up Referrals: Oncology - 1 Week Pulmonology - 1 Week New Medications: Enoxaparin Inj (Lovenox Inj) 40 Mg/0.4 Ml Syr 40 MG SQ DAILY Blood Clot Prevention #10 Ref 0 SYRINGE Prednisone (Prednisone) 10 Mg Tab 10 MG PO BID bronchitis #60 TAB Continued Medications: Atenolol (Atenolol) 50 Mg Tab 50 MG PO DAILY Blood Pressure Management #30 Ref 0 TAB Benzonatate (Benzonatate) 100 Mg Cap 100 MG PO TID PRN COUGH Ref 0 CAP Budesonide-Formoterol Inh (Symbicort Inh) 80-4.5 Mcg/Act Aero 2 PUFF INH Q12HR Breathing Treatment Days 30 INHALER Cholecalciferol (Vitamin D3) 1,000 Unit Tab 2000 UNITS PO DAILY Nutritional Supplement #1 Ref 0 BOTTLE Hydralazine HCl (Hydralazine HCl) 25 Mg Tablet 25 MG PO Q8HR Blood Pressure Management Days 30 TAB Levothyroxine (Levothyroxine) 150 Mcg Tab 150 MCG PO DAILY Thyroid #30 Ref 0 TAB Lisinopril (Lisinopril) 20 Mg Tab 20 MG PO Q12HR Blood Pressure Management Days 30 TAB Mirtazapine (Mirtazapine) 45 Mg Tab 45 MG PO HS Depression Control #30 Ref 0 TAB Montelukast (Singulair) 10 Mg Tab 10 MG PO HS #30 Ref 0 TAB Morphine ER (Morphine ER) 15 Mg Tab 15 MG PO Q6HR Pain Management Ref 0 TAB Paroxetine (Paroxetine) 30 Mg Tab 30 MG PO DAILY #30 Ref 0 TAB Pravastatin (Pravastatin) 10 Mg Tab 10 MG PO HS Cholesterol Management #30 Ref 0 TAB ([guaiFENesin ER]) 600 MG TABCR 600 MG PO BID Days 10 TAB.SR Discontinued Medications: Apixaban (Eliquis) 2.5 Mg Tab 2.5 MG PO DAILY Blood Clot Prevention Ref 0 TAB Cefuroxime (Cefuroxime) 500 Mg Tab 500 MG PO Q12HR Chest Congestion/Cough Days 7 TAB Prednisone (Prednisone) 10 Mg Tab 10 MG PO TID Take 1 tab po tid for 2 days, then 1 tab po bid for 3 days, then 1 tab po daily for 3 days, then discontinue Breathing Treatment Days 8 Ref 0 TAB Radha Shanks Oct 03, 2016 18:06
== END 2016-10-03 13:41 | disposition home or self-care (01) | DRG 813 ==
LOC: NEPE 03:10 → NEDA 06:02 → HOCA 08:08
PROVIDERS: ADMIT Specialist; ATTEND Specialist
PROC: 30233M1 Transfusion of Nonautologous Plasma Cryoprecipitate into Peripheral Vein, Percutaneous Approach (ICD-10-PCS; principal; 2016-09-25)
PROC: 30233K1 Transfusion of Nonautologous Frozen Plasma into Peripheral Vein, Percutaneous Approach (ICD-10-PCS; 2016-09-26)
DX: D68.32 Hemorrhagic disorder due to extrinsic circulating anticoagulants (principal); N17.9 Acute kidney failure, unspecified; J44.0 Chronic obstructive pulmonary disease with (acute) lower respiratory infection; D69.6 Thrombocytopenia, unspecified; I50.9 Heart failure, unspecified; I11.0 Hypertensive heart disease with heart failure; E86.0 Dehydration; J44.1 Chronic obstructive pulmonary disease with (acute) exacerbation; N39.0 Urinary tract infection, site not specified; R31.0 Gross hematuria; E03.9 Hypothyroidism, unspecified; E78.5 Hyperlipidemia, unspecified; F41.9 Anxiety disorder, unspecified; G89.29 Other chronic pain; I25.10 Atherosclerotic heart disease of native coronary artery without angina pectoris; T38.0X5A Adverse effect of glucocorticoids and synthetic analogues, initial encounter; R73.9 Hyperglycemia, unspecified; C50.912 Malignant neoplasm of unspecified site of left female breast; J20.9 Acute bronchitis, unspecified; T80.89XA Other complications following infusion, transfusion and therapeutic injection, initial encounter; R74.0 Nonspecific elevation of levels of transaminase and lactic acid dehydrogenase [LDH]; K59.00 Constipation, unspecified; Z95.1 Presence of aortocoronary bypass graft; Z85.51 Personal history of malignant neoplasm of bladder; Z79.01 Long term (current) use of anticoagulants; Z86.711 Personal history of pulmonary embolism; Z86.718 Personal history of other venous thrombosis and embolism; Z85.038 Personal history of other malignant neoplasm of large intestine; Z95.2 Presence of prosthetic heart valve; Z93.2 Ileostomy status
CPT/HCPCS: 36430; 36514; 36556; 71010; 71250; 74177; 76937; 77001; 78226; 80048; 80053; 80076; 81001; 82103; 82105; 82248; 82306; 82390; 82652; 82948; 82977; 83010; 83520; 83615; 83690; 83735; 83880; 85007; 85025; 85027; 85060; 85384; 85397; 85610; 85730; 86038; 86078; 86255; 86705; 86803; 86880; 86900; 86901; 86927; 86965; 87040; 87070; 87077; 87086; 87186; 87205; 87340; 93005; 93306; 94150; 94640; 94664; 94667; 94668; A9537; C1752; J0360; J0610; J0692; J0744; J1200; J1644; J1815; J1940; J2270; J2405; J3370; J7030; J7050; J7512; P9017; Q9967

== ENCOUNTER → 2016-10-21 | Day surgery (SDC) | payer MEDICARE ==
[~2016-10-21] MED LIST changes: +ANAS1 PO; -APIX2.5T PO; -CEFU1TAB20 PO; +COUM2.5T PO; +ENOX40P SQ; +HYDROCORTISONE SOD SUCCINATE 100 MG VIAL ONE; +IPRASOL NEB; +ISOSULFAN BLUE 50 MG/5 ML VIAL SQ ONE; +KETOROLAC TROMETHAMINE 30 MG/ML (IVP) VIAL IV PUSH ONE; +LIDOCAINE 1%/EPINEPHrine 1:200,000 PF SOLN 30 ML VIAL ONE; +MIDAZOLAM HCL 2 MG/2 ML VIAL ONE; +MSIR15 PO; +ONDANSETRON HCL 4 MG/2 ML VIAL IV PUSH ONE; +PROPOFOL 200 MG/20 ML AMP IV ONE; +SODIUM CHLOR 0.9% 250 ML BAG IV ONE; +VANCOMYCIN 500 MG VIAL ONE
--- NOTE | 2016-10-21 16:22 | TN ---
cc: NATALIA MILTON M.D. 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 PROCEDURE Injection blue dye left breast, left axillary sentinel lymph node biopsy x2, left breast needle-localized lumpectomy. Placement of intraoperative radiation therapy device size 3.[address] Natalia Milton. ANESTHESIA General. INDICATIONS This is a pleasant 86-year-old woman with multiple medical issues including prior cancer of the pancreas, who has had also radical cystectomy and ileoconduit, who was found to have mammographic abnormality subsequently biopsied consistent with poorly differentiated invasive ductal carcinoma of the left breast. The abnormality was relatively small and due to her multiple medical issues it was felt she was a candidate for lumpectomy and intraoperative radiation therapy. Dr. Meza requests a sentinel lymph node biopsy. INTRAOPERATIVE FINDINGS Left axillary sentinel lymph node biopsy performed. Number one had a 10 second count of 1238 and was blue, #2 was not blue and had a 10-second count of 138. Lumpectomy specimen was sent with a short stitch superior anterior and a long stitch lateral posterior. Clinically closest margin was inferior and additional tissue was removed inferiorly and a suture placed on the new inferior margin. Specimens sent to pathology after confirmation of containing the area of concern within the lumpectomy cavity by Dr. Plasencia. Estimated blood loss was less than 5 mL. DESCRIPTION OF PROCEDURE IN DETAIL The patient was identified as Bonnie Hill, taken to the operating room and placed in the supine position after ultrasound-guided needle localization of the left breast and the left breast lymphoscintigraphy. Sequential compression devices were placed on bilateral lower extremities. Following induction of adequate general esthesia with a laryngeal mask, the patient's left breast and axilla were prepped and draped in usual sterile fashion with Betadine. A time-out procedure was performed. Following completion of time-out procedure to everyone's satisfaction within the room 5 ccs of isosulfan blue dye were injected in the peritumoral and retroareolar position. Navigator probe was used to identify increased uptake in left axilla and proposed incision was made with a marking pen as well as a proposed incision along the inferior medial areolar edge. Local anesthetic was placed in both locations and attention was turned to the left axilla. Left axillary incision was carried out with scalpel and hemostasis controlled with electrocautery. Dissection continued posteriorly through subcutaneous fatty tissue until axillary fat was identified. Using navigator probe a blue stained lymph node was from surrounding tissues, removed using electrocautery and 10-second count performed, was marked with a suture and passed off the field for pathologic evaluation. No significant increased uptake was identified within the axilla but there was a palpable adjacent node which was excised from surrounding tissues, it was not blue stained and had a 10-second count of 138, was sent unmarked with the first node as sentinel lymph node #2, 10-second count 138, not blue. No additional increased uptake, blue stained tissue or palpable abnormal lymph nodes were identified within the axilla. The wound was irrigated with saline. Small bleeding points were controlled with electrocautery. Several ccs of local anesthetic was placed within the axillary wound and was closed in layers with 3-0 Vicryl and 4-0 Monocryl. It was dressed with Mastisol, half-inch brown Steri-Strips and a Telfa with Tegaderm. Attention was turned to lumpectomy. The periareolar incision which had been infiltrated with local anesthetic was opened with a scalpel. Hemostasis was controlled with electrocautery. Dissection continued posteriorly and medially until localization needle was identified within the breast tissue. It was divided at the level of skin, brought into the wound and a generous portion of tissue around the localization needle tip was excised from surrounding breast tissue using electrocautery. Specimen was removed and evaluated. It appeared clinically the closest margin was inferior. The specimen was sent with a short stitch superior anterior and a long stitch lateral posterior to Dr. Plasencia and radiology confirmed the area of concern was contained within the specimen. Additional inferior margin was excised with electrocautery and a suture marked the new inferior margin. There were no suspicious areas within the lumpectomy cavity, it was irrigated with saline, there was no evidence of bleeding. A 3 and 1/2 cm intraoperative radiation therapy device was placed within the lumpectomy cavity after a 0-Prolene suture was placed at about the 1 to 1-1/2 cm depth within the breast tissue to create a spherical space. Measurements were taken with the ultrasound and the closest measurement was inferiorly and was less than 7 mm. Tissue was mobilized in order to create a nearly 1 cm margin inferiorly. Again the intraoperative radiation therapy 3-1/2 cm treatment device was placed within the lumpectomy cavity. Measurements were taken and no evidence of less than 7 mm margin from skin to treatment device was obtained. The treatment device was then removed from the breast, attached to the intraoperative radiation therapy machine, draped and replaced into the lumpectomy cavity in a standard fashion. The Prolene suture was then tied over the top of the radiation therapy device and measurements again were taken and again no measurement less than 7 mm from skin to treatment device was obtained and therefore radiation therapy proceeded intraoperatively as per Dr. Morris's dictation. Following completion of intraoperative radiation therapy, the Prolene suture was removed. The intraoperative radiation therapy device was removed and the wound was irrigated with saline. Tissue was mobilized around lumpectomy cavity for closure using 3-0 Vicryl in deep and superficial breast tissue. The skin was approximated with 4-0 Monocryl subcuticular suture and dressings were applied, Mastisol, half-inch brown Steri-Strips, gauze and Tegaderm. The patient tolerated the procedures without apparent complication. Sponge, needle and instrument counts were correct at the end of the case. MD NAKIA Norris/VELIA /2:53 PM /3:43 PM
--- NOTE | 2016-10-23 17:07 | RADONCOP ---
OPERATIVE REPORT DATE OF SURGERY: 10/21/2016 REFERRING PHYSICIAN: Aric Schroeder PREOPERATIVE DIAGNOSIS: C50.812 - Malignant neoplasm of overlapping sites of left female breast, Diagnosed 09/13/2016 (Active) POSTOPERATIVE DIAGNOSIS: C50.812 - Malignant neoplasm of overlapping sites of left female breast, Diagnosed 09/13/2016 (Active) PROCEDURE: Intraoperative Radiation Therapy to the . SURGEON: Aric Schroeder ANESTHESIA: General ESTIMATED BLOOD LOSS: Minimal INDICATIONS: Patient is a 86 year old female presenting with left breast ca. She has elected to receive targeted intraoperative radiation therapy to the . DESCRIPTION OF PROCEDURE: Patient was taken to the operating room and placed on the table in the supine position. Following induction of general anesthesia, the and arm were prepped and draped sterilely. Ultrasound was performed of the breast to document the location of the breast malignancy. The wound was prepared for intraoperative radiation therapy. Based on the diameter of the cavity, a 3.5cm radiation applicator was selected for the delivery of intraoperative radiation therapy. The applicator was then sterilely mounted onto the Intrabeam Stand. Retracting sutures were placed within the skin to be used to retract the skin edges away from the radiation source. The 3.5cm Radiation applicator was then sterilely inserted into the wound. The superficial purse-string suture was tied down. Ultrasound was performed of the breast to document conformity of the surgical margins and the distance from the applicator to the skin surface (0.79 cm). The retracting sutures were then secured and a moistened lap pad was placed on the skin surface, followed by an external radiation barrier. Intraoperative radiotherapy was then initiated by the Radiation Oncologist. Total treatment time was 18 minutes. Upon completion of the intraoperative radiotherapy treatment, the radiation applicator, purse-string sutures and retracting sutures were removed from the wound. The wound was once again irrigated. Hemostasis was confirmed. The patient was then turned back over to the surgeon, Aric Schroeder in stable condition for completion of surgical procedure. Tulio Burrell MD 10/23/2016 5:07:23 PM This report was verified and signed electronically [facility] [address] [place] [id number] RADIATION ONCOLOGY OPERATIVE REPORT Date: 10/21/2016 Patient Name: Bonnie Hill
--- NOTE | 2016-10-23 17:08 | RADONCENDT ---
END OF TREATMENT SUMMARY PRIMARY REFERRING PHYSICIAN: Aric Schroeder CC: Aric Schroeder DIAGNOSIS: Primary C50.812 - Malignant neoplasm of overlapping sites of left female breast, Diagnosed 09/13/2016 (Active) PRESCRIPTION AND TREATMENT: 2000 cGy to surface of applicator- TREATED PLAN FRACTIONS AND DATES: Course: One fraction delivered on 10/21/2016 TOLERANCE: Patient completed treatment without complications. FOLLOW UP PLAN: Patient to be seen in 6 weeks. Tulio Burrell MD 10/23/2016 5:07:41 PM This report was verified and signed electronically [facility] [address] [facility] [place] [address] RADIATION ONCOLOGY END OF TREATMENT SUMMARY Date: 10/21/2016 Patient Name: Bonnie Hill Date of : 1930 Age: 86 Sex: Female
== END | disposition home or self-care (01) ==
LOC: ESDC 09:40
PROVIDERS: ATTEND Surgery Trauma Surgery
DX: C50.812 Malignant neoplasm of overlapping sites of left female breast (principal)
CPT/HCPCS: 00400; 01610; 19125; 38525; 38792; 77290; 77300; 77334; 77370; 77424; 88307; J1720; J1885; J2250; J2405; J3010; J3370; J7050; Q9968; 77469

== ENCOUNTER 2016-11-26 14:03 | Inpatient (IN) | payer MEDICARE ==
[2016-11-26] VITALS (9 sets, daily range): BP systolic 97–146; BP diastolic 51–60; PULSE 70–83; RESP 16–20; TEMP 97.9–98.7; O2SAT 96–99
[~2016-11-26] VITALS: Ht 157.5 cm; Wt 68.4 kg
[~2016-11-26 14:03] MED LIST changes: -ANAS1 PO; -COUM2.5T PO; -HYDROCORTISONE SOD SUCCINATE 100 MG VIAL ONE; -IPRASOL NEB; -ISOSULFAN BLUE 50 MG/5 ML VIAL SQ ONE; -KETOROLAC TROMETHAMINE 30 MG/ML (IVP) VIAL IV PUSH ONE; -LIDOCAINE 1%/EPINEPHrine 1:200,000 PF SOLN 30 ML VIAL ONE; -MIDAZOLAM HCL 2 MG/2 ML VIAL ONE; -MSIR15 PO; -ONDANSETRON HCL 4 MG/2 ML VIAL IV PUSH ONE; -PROPOFOL 200 MG/20 ML AMP IV ONE; -SODIUM CHLOR 0.9% 250 ML BAG IV ONE; -VANCOMYCIN 500 MG VIAL ONE
--- NOTE | 2016-11-26 14:11 | PD ---
HPI Chief Complaint: Altered Mental Status Time Seen by Provider: 14:11 (Autumn Chung MD) Time Seen by Provider: 14:21 (Paul Joseph) Travel History International Travel<30 days: No Contact w/Intl Traveler<30days: No Traveled to known affect area: No (Paul Joseph) History of Present Illness HPI 86-year-old female presents the emergency department as a straight back from triage with history of left-sided weakness since upon awakening approximately 8:00 this morning. Patient is alert and oriented and denies visual changes but feels weak in the left hand and lower leg. She denies numbness or tingling. She denies significant headache. Patient does have hypercoagulable history, with history of use of our questions as well as warfarin and injectable Lovenox, status post breast cancer. Patient is followed by Dr. Meza. Patient agrees she stopped her warfarin as she was having much area in her urostomy bag and kept only on Lovenox injections. Patient states she hasn't felt well for a couple of days without specific complaints. Patient was last seen normal at approximately 11:30 last night. Patient's daughter brought her immediately in the emergency department upon returning home from work at noon for her Lovenox injection. Patient has multiple allergies. Please see her list. (Paul Joseph) [facility] Past Medical History Asthma: Yes Blood Disorders: No Anxiety: Yes Depression: No Heart Rhythm Problems: No Cancer: Yes (BLADDER CANCER, BOWEL CANCER, AORTIC LYMPH NODES W REMOVAL ) Cardiovascular Problems: Yes (HYPERLIPIDEMIA) High Cholesterol: Yes Chemotherapy: No Chest Pain: No Congestive Heart Failure: Yes COPD: Yes Coronary Artery Disease: Yes Diabetes: No Endocrine: No Gastrointestinal Disorders: Yes (ESOPHAGEAL STRICTURE) Genitourinary: No Hepatitis: No Hiatal Hernia: No Hypertension: Yes Immune Disorder: No Musculoskeletal: Yes (BACK INJURY) Neurologic: No Psychiatric: Yes (ANXIETY) Reproductive: No Respiratory: Yes (COPD) Radiation Therapy: No Thyroid Disease: Yes Menopausal: Yes (Autumn Chung MD) Past Surgical History Abdominal Surgery: Yes (APPENDECTOMY, CHOLY) AICD: No Appendectomy: Yes Body Medical Devices: BOVINE VALVE Cardiac Surgery: Yes (BOVINE VALVE) Cholecystectomy: Yes Ear Surgery: No Endocrine Surgery: No Eye Surgery: No Genitourinary Surgery: Yes (BLADDER REMOVAL, UROSTOMY) Gynecologic Surgery: No Joint Replacement: No Oral Surgery: Yes (TONSILLECTOMY) Pacemaker: No Thoracic Surgery: No Tonsillectomy: Yes Other Surgery: Yes (BOWEL RESECTION, LYMPH NODE REMOVAL) (Autumn Chung MD) Social History Alcohol Use: No Tobacco Use: No Substance Use: No (Autumn Chung MD) Alcohol Use: No Tobacco Use: No Substance Use: No (Paul Joseph) Allergies-Medications (Allergen,Severity, Reaction): Coded Allergies: amlodipine (Unverified Allergy, Severe, 11/26/16) atorvastatin (Unverified Allergy, Severe, 11/26/16) codeine (Unverified Allergy, Severe, nausea , 11/26/16) dimenhydrinate (Unverified Allergy, Severe, Confusion, 11/26/16) simvastatin (Unverified Allergy, Severe, 11/26/16) zolpidem (Unverified Allergy, Severe, Confusion, 11/26/16) Reported Meds & Prescriptions Reported Meds & Active Scripts Active Lovenox Inj (Enoxaparin Sodium) 40 Mg/0.4 Ml Syr 40 Mg SQ DAILY Lisinopril 20 Mg Tab 20 Mg PO Q12HR 30 Days Hydralazine HCl 25 Mg Tablet 25 Mg PO Q8HR 30 Days Symbicort Inh (Budesonide/Formoterol Fumarate) 80-4.5 Mcg/Act Aero 2 Puff INH Q12HR 30 Days Reported Arimidex (Anastrozole) 1 Mg Tab 1 Mg PO DAILY Morphine IR (Morphine Sulfate) 15 Mg Tab 15 Mg PO Q4H PRN Paroxetine (Paroxetine HCl) 30 Mg Tab 30 Mg PO DAILY Benzonatate 100 Mg Cap 100 Mg PO TID PRN Morphine ER (Morphine Sulfate) 15 Mg Tab 15 Mg PO Q6HR Vitamin D3 (Cholecalciferol) 1,000 Unit Tab 2,000 Units PO DAILY Pravastatin 10 Mg Tab 10 Mg PO HS Singulair (Montelukast Sodium) 10 Mg Tab 10 Mg PO HS Levothyroxine (Levothyroxine Sodium) 150 Mcg Tab 150 Mcg PO DAILY Mirtazapine 45 Mg Tab 45 Mg PO HS Atenolol 50 Mg Tab 50 Mg PO DAILY (Paul Joseph) Review of Systems Except as stated in HPI: all other systems reviewed are Neg General / Constitutional: No: Fever Eyes: No: Diploplia, Blurred Vision, Photophobia, Blind Spots, Visual changes, Blindness HENT: No: Headaches Cardiovascular: No: Chest Pain or Discomfort Respiratory: No: Cough, Shortness of Breath, Wheezing Gastrointestinal: No: Nausea, Vomiting, Diarrhea, Abdominal Pain Genitourinary: No: Dysuria Musculoskeletal: No: Pain Skin: No Rash Neurologic: Positive: Weakness (on the left side, see history of present illness), Focal Abnormalities, Coordination Problem, No: Dizziness, Syncope, Tremor, Ataxia, Headache, Change in Mentation, Slurred Speech, Paresthesia, Incontinence, Seizures, Sensory Disturbance Psychiatric: No: Depression Endocrine: No: Polydipsia Hematologic/Lymphatic: No: Easy Bruising (Paul Joseph) Physical Exam Narrative GENERAL: Patient appears mildly anxious but otherwise no acute distress. She is alert and oriented 3. SKIN: Warm and dry. Color. Normal turgor. HEAD: Atraumatic. Normocephalic. EYES: Pupils equal and round. No scleral icterus. No injection or drainage. ENT: No nasal bleeding or discharge. Mucous membranes pink and moist. Pharynx is clear. Airway is patent. NECK: Trachea midline. Supple and nontender. CARDIOVASCULAR: Regular rate and rhythm. RESPIRATORY: No accessory muscle use. Clear to auscultation. Breath sounds equal bilaterally. GASTROINTESTINAL: Abdomen soft, non-tender, nondistended. Hepatic and splenic margins not palpable. MUSCULOSKELETAL: Extremities without clubbing, cyanosis, or edema. No obvious deformities. NEUROLOGICAL: Awake and alert. Patient has obvious cranial nerve deficits with left-sided facial droop. Motor grossly shows weakness in the left arm and lower extremity with decreased ability to do finger to nose. Five out of patient has 3 to 4 over 5 muscle strength in the left arm and leg. Normal speech except for facial droop on left. PSYCHIATRIC: Appropriate mood and affect; insight and judgment normal. (Paul Joseph) Data Data Last Documented VS Vital Signs Date Time Temp Pulse Resp B/P (MAP) Pulse Ox O2 Delivery O2 Flow Rate FiO2 11/26/16 14:26 16 97 Room Air 11/26/16 14:03 97.9 83 130/59 (82) (Paul Joseph) Orders Orders Electrocardiogram (11/26/16 14:19) Prothrombin Time / Inr (Pt) (11/26/16 14:19) Act Partial Throm Time (Ptt) (11/26/16 14:19) Complete Blood Count With Diff (11/26/16 14:19) Comprehensive Metabolic Panel (11/26/16 14:19) Creatine Kinase (Cpk) (11/26/16 14:19) Troponin I (11/26/16 14:19) Ct Brain W/O Iv Contrast(Rout) (11/26/16 14:19) Chest, Single Ap (11/26/16 14:19) Ecg Monitoring (11/26/16 14:19) Iv Access Insert/Monitor (11/26/16 14:19) Oximetry (11/26/16 14:19) Sodium Chloride 0.9% Flush (Ns Flush) (11/26/16 14:30) Aspirin Chew (Aspirin Chew) (11/26/16 15:15) Consult Neurology (11/26/16 ) (Hub Use Only)Inp Phy Cons/Ref (11/26/16 ) Admit Order (Ed Use Only) (11/26/16 15:53) (Paul Joseph) Labs Laboratory Tests Test 11/26/16 14:20 White Blood Count 10.2 TH/MM3 Red Blood Count 4.43 MIL/MM3 Hemoglobin 13.8 GM/DL Hematocrit 41.9 % Mean Corpuscular Volume 94.5 FL Mean Corpuscular Hemoglobin 31.2 PG Mean Corpuscular Hemoglobin Concent 33.0 % Red Cell Distribution Width 15.4 % Platelet Count 167 TH/MM3 Mean Platelet Volume 8.5 FL Neutrophils (%) (Auto) 36.6 % Lymphocytes (%) (Auto) 47.7 % Monocytes (%) (Auto) 12.2 % Eosinophils (%) (Auto) 2.5 % Basophils (%) (Auto) 1.0 % Neutrophils # (Auto) 3.7 TH/MM3 Lymphocytes # (Auto) 4.9 TH/MM3 Monocytes # (Auto) 1.2 TH/MM3 Eosinophils # (Auto) 0.3 TH/MM3 Basophils # (Auto) 0.1 TH/MM3 CBC Comment DIFF FINAL Differential Comment Prothrombin Time 10.5 SEC Prothromb Time International Ratio 1.0 RATIO Activated Partial Thromboplast Time 25.9 SEC Blood Urea Nitrogen 44 MG/DL Creatinine 1.26 MG/DL Random Glucose 57 MG/DL Total Protein 7.2 GM/DL Albumin 3.0 GM/DL Calcium Level 8.6 MG/DL Alkaline Phosphatase 364 U/L Aspartate Amino Transf (AST/SGOT) 51 U/L Alanine Aminotransferase (ALT/SGPT) 67 U/L Total Bilirubin 0.4 MG/DL Sodium Level 141 MEQ/L Potassium Level 4.9 MEQ/L Chloride Level 112 MEQ/L Carbon Dioxide Level 22.4 MEQ/L Anion Gap 7 MEQ/L Estimat Glomerular Filtration Rate 40 ML/MIN Total Creatine Kinase 58 U/L Troponin I LESS THAN 0.02 NG/ML (Paul Joseph) MDM Medical Decision Making Medical Screen Exam Complete: Yes Emergency Medical Condition: Yes Medical Record Reviewed: Yes Differential Diagnosis Stroke. Left-sided weakness. Intracranial bleed. TIA. Patient is outside window for TPA. Narrative Course Patient is discussed with and examined with Dr. Chung. CT of the head is ordered with noncontrast. Patient is not felt to be a stroke alert as she is outside the window of TPA, and recent bleeding history. Labs ordered including CBC, CMP, PT PTT and INR, cardiac panel. EKG and chest x-ray is ordered. EKG shows sinus rhythm with occasional SVTs. No significant T-wave abnormality. This is reviewed with Dr. Chung. CT of the head shows: CONCLUSION: 1. Small calcified extra-axial rounded lesion in the anterior frontal high vertex, may reflect sequela of prior injury/inflammation. Differential considerations include a small meningioma, although this would be atypical in appearance. 2. Otherwise, no acute intracranial abnormality. Patient is given 324 mg aspirin by mouth. Patient is discussed with Dr. Chung recommends discussion with the neurologist. Call was placed to the neurologist library monitor. Dr. Monroe did not recommend any other acute treatment or imaging. CBC is unremarkable. CMP is unremarkable except for chloride of 112, BUN of 44, creatinine 1.26, GFR is 40, glucose 57 AST 51, ALT 67 albumin is 3.0. Troponin is less than 0.02. Alkaline phosphatase is elevated at 364. Coagulation studies show PT of 10.5, INR 1.0, APTT of 25.9. Call placed to the [facility] for admission. (Paul Joseph) Diagnosis Primary Impression: Acute left-sided weakness Additional Impression: CVA (cerebral vascular accident) Qualified Codes: I63.9 - Cerebral infarction, unspecified Admitting Information Admitting Physician Requests: Admit (Paul Joseph) Condition: Stable Autumn Chung MD Nov 26, 2016 14:11 Paul Joseph Nov 26, 2016 14:21
[2016-11-26] MEDS ORDERED: ANAS1 PO (14:15)
[2016-11-26] MEDS ORDERED: MSIR15 PO (14:15)
[2016-11-26] MEDS ORDERED: SODIUM CHLORIDE 0.9% FLUSH 10 ML FLUSH IVF PRN (14:30)
--- NOTE | 2016-11-26 14:47 | RADRPT ---
EXAM DATE/TIME: 11/26/2016 14:25 [facility] COMPARISON: No previous studies available for comparison. INDICATIONS : Left side weakness starting this morning RADIATION DOSE: 56.35 CTDIvol (mGy) MEDICAL HISTORY : Cardiovascular disease. Hypertension. Chronic obstructive pulmonary disease.Bladder cancer,bowel canc er SURGICAL HISTORY : Appendectomy. Cholecystectomy.Aortic lymphnode removed ENCOUNTER: Initial ACUITY: 1 day PAIN SCALE: 0/10 LOCATION: cranial TECHNIQUE: Multiple contiguous axial images were obtained of the head. Using automated exposure control and adj ustment of the mA and/or kV according to patient size, radiation dose was kept as low as reasonably a chievable to obtain optimal diagnostic quality images. DICOM format image data is available electro nically for review and comparison. FINDINGS: CEREBRUM: Small calcified extra-axial rounded lesion in the anterior frontal high vertex. Mild diffuse cerebral atrophy. The ventricles are normal for age. No evidence of midline shift, mass lesion, hemorrhage o r acute infarction. No extra-axial fluid collections are seen. POSTERIOR FOSSA: The cerebellum and brainstem are intact. The 4th ventricle is midline. The cerebellopontine angle i s unremarkable. EXTRACRANIAL: The visualized portion of the orbits is intact. SKULL: The calvaria is intact. No evidence of skull fracture. CONCLUSION: 1. Small calcified extra-axial rounded lesion in the anterior frontal high vertex, may reflect sequel a of prior injury/inflammation. Differential considerations include a small meningioma, although this would be atypical in appearance. 2. Otherwise, no acute intracranial abnormality. Taz Loomis MD on November 26, 2016 at 14:42 Board Certified Radiologist. This report was verified electronically.
[2016-11-26 15:15] LABS: AUTOMATED NEUTROPHIL # 3.7 TH/MM3 (1.8-7.7); BASOPHIL # 0.1 TH/MM3 (0-0.2); EOSINOPHIL # 0.3 TH/MM3 (0-0.4); EOSINOPHIL % 2.5 % (0.0-4.0); HEMATOCRIT 41.9 % (35.0-46.0); HEMO FLAGS DIFF FINAL; LYMPH % 47.7 % (9.0-44.0); LYMPHOCYTE # 4.9 TH/MM3 (1.0-4.8); MEAN CELL VOLUME 94.5 FL (80.0-100.0); MEAN CORPUSCULAR HEMOGLOBIN 31.2 PG (27.0-34.0); MONO % 12.2 % (0.0-8.0); NEUT % 36.6 % (16.0-70.0); PLATELET COUNT 167 TH/MM3 (150-450); RED BLOOD COUNT 4.43 MIL/MM3 (4.00-5.30); RED CELL DISTRIBUTION WIDTH 15.4 % (11.6-17.2); WHITE BLOOD COUNT 10.2 TH/MM3 (4.0-11.0)
[2016-11-26] MEDS ORDERED: ASPIRIN 81 MG CHEW TAB CHEW ONE (15:15)
[2016-11-26 15:19] LABS: ALT (GPT) 67 U/L (10-53); ANION GAP 7 MEQ/L (5-15); AST (GOT) 51 U/L (15-37); BICARBONATE 22.4 MEQ/L (21.0-32.0); BLOOD UREA NITROGEN 44 MG/DL (7-18); CHLORIDE 112 MEQ/L (98-107); GLOMERULAR FILTRATION RATE 40 ML/MIN (>89); POTASSIUM 4.9 MEQ/L (3.5-5.1); SODIUM (NA) 141 MEQ/L (136-145)
--- NOTE | 2016-11-26 15:24 | RADRPT ---
EXAM DATE/TIME: 11/26/2016 15:08 [facility] COMPARISON: CHEST SINGLE AP, September 27, 2016, 15:52. INDICATIONS : Possible stroke. MEDICAL HISTORY : bladder, bowel, lymph node and left breast cancers SURGICAL HISTORY : CABG. ENCOUNTER: Initial ACUITY: 1 day PAIN SCORE: 0/10 LOCATION: Bilateral chest FINDINGS: The cardiac silhouette is normal in transverse diameter. Median sternotomy wires are present. Moderat e scoliotic deformity is present to the right with a rotatory component with the apex at T10The lungs are free of acute parenchymal opacity. No effusions are identified. There is prominence of the aorti c knob is with calcification characteristic of atherosclerotic vascular disease. CONCLUSION: 1. Cardiomegaly. No acute pulmonary disease. Aric Tobar MD on November 26, 2016 at 15:21 Board Certified Radiologist. This report was verified electronically.
[2016-11-26 15:33] LABS: ALKALINE PHOSPHATASE 364 U/L (45-117); TOTAL BILIRUBIN ADULT 0.4 MG/DL (0.2-1.0)
[2016-11-26 15:34] LABS: APTT (PATIENT) 25.9 SEC (24.3-30.1); PROTHROMBIN TIME - PATIENT 10.5 SEC (9.8-11.6)
[2016-11-26 15:41] LABS: CREATINE KINASE 58 U/L (26-192)
[2016-11-26] MEDS ORDERED: ENALAPRILAT 1.25 MG/ML VIAL IV PUSH PRN (16:45)
[2016-11-26] MEDS ORDERED: MORPHINE SULFATE 15 MG TAB PO PRN (16:45)
[2016-11-26] MEDS ORDERED: SODIUM CHLORIDE 0.9% FLUSH 5 ML FLUSH IV FLUSH PRN (16:45)
--- NOTE | 2016-11-26 16:47 | PD ---
Physical Exam Date Seen by Provider: Nov 26, 2016 Time Seen by Provider: 16:40 Narrative 86-year-old female came to the emergency room with history of left sided weakness that she noticed after she woke up at 8 this morning. Weakness is more on the upper and lower extremity. She also has a left-sided facial droop. Patient last felt normal was at 9:30 PM last night. She lives with her daughter who says that she had gone to check on her at 11:15 PM after she returned from work to give her medication. She noticed that she woke up but was more confused than her usual. Patient does not think she had this weakness at that time but cannot be 100% sure. She has history of cancer and was on Coumadin but started having bleeding and hence it was withheld. For past 7 days she's been on Lovenox shots. She was seen by my PA and IV and supervising him. When I examined the patient she had significant weakness of the left upper extremity and left lower extremity. Significant ataxia upon finger-nose as well as the heel del toro test. Patient is awake and answering questions appropriately. She is out of the window for TPA. CT scan does not show any bleed.. Discussed the case with neurologist who agrees with the current management. She was given 1 full strength aspirin. Patient has been admitted for stroke. Data Data Last Documented VS Vital Signs Date Time Temp Pulse Resp B/P (MAP) Pulse Ox O2 Delivery O2 Flow Rate FiO2 11/26/16 15:00 74 16 97/51 (66) 96 Room Air 11/26/16 14:03 97.9 Orders Orders Electrocardiogram (11/26/16 14:19) Prothrombin Time / Inr (Pt) (11/26/16 14:19) Act Partial Throm Time (Ptt) (11/26/16 14:19) Complete Blood Count With Diff (11/26/16 14:19) Comprehensive Metabolic Panel (11/26/16 14:19) Creatine Kinase (Cpk) (11/26/16 14:19) Troponin I (11/26/16 14:19) Ct Brain W/O Iv Contrast(Rout) (11/26/16 14:19) Chest, Single Ap (11/26/16 14:19) Ecg Monitoring (11/26/16 14:19) Iv Access Insert/Monitor (11/26/16 14:19) Oximetry (11/26/16 14:19) Sodium Chloride 0.9% Flush (Ns Flush) (11/26/16 14:30) Aspirin Chew (Aspirin Chew) (11/26/16 15:15) Consult Neurology (11/26/16 ) (Hub Use Only)Inp Phy Cons/Ref (11/26/16 ) Admit Order (Ed Use Only) (11/26/16 15:53) Labs Laboratory Tests Test 11/26/16 14:20 White Blood Count 10.2 TH/MM3 Red Blood Count 4.43 MIL/MM3 Hemoglobin 13.8 GM/DL Hematocrit 41.9 % Mean Corpuscular Volume 94.5 FL Mean Corpuscular Hemoglobin 31.2 PG Mean Corpuscular Hemoglobin Concent 33.0 % Red Cell Distribution Width 15.4 % Platelet Count 167 TH/MM3 Mean Platelet Volume 8.5 FL Neutrophils (%) (Auto) 36.6 % Lymphocytes (%) (Auto) 47.7 % Monocytes (%) (Auto) 12.2 % Eosinophils (%) (Auto) 2.5 % Basophils (%) (Auto) 1.0 % Neutrophils # (Auto) 3.7 TH/MM3 Lymphocytes # (Auto) 4.9 TH/MM3 Monocytes # (Auto) 1.2 TH/MM3 Eosinophils # (Auto) 0.3 TH/MM3 Basophils # (Auto) 0.1 TH/MM3 CBC Comment DIFF FINAL Differential Comment Prothrombin Time 10.5 SEC Prothromb Time International Ratio 1.0 RATIO Activated Partial Thromboplast Time 25.9 SEC Blood Urea Nitrogen 44 MG/DL Creatinine 1.26 MG/DL Random Glucose 57 MG/DL Total Protein 7.2 GM/DL Albumin 3.0 GM/DL Calcium Level 8.6 MG/DL Alkaline Phosphatase 364 U/L Aspartate Amino Transf (AST/SGOT) 51 U/L Alanine Aminotransferase (ALT/SGPT) 67 U/L Total Bilirubin 0.4 MG/DL Sodium Level 141 MEQ/L Potassium Level 4.9 MEQ/L Chloride Level 112 MEQ/L Carbon Dioxide Level 22.4 MEQ/L Anion Gap 7 MEQ/L Estimat Glomerular Filtration Rate 40 ML/MIN Hemoglobin A1c 6.9 % Total Creatine Kinase 58 U/L Troponin I LESS THAN 0.02 NG/ML MDM Supervised Visit with FÁTIMA: Yes Diagnosis Primary Impression: Acute left-sided weakness Additional Impression: CVA (cerebral vascular accident) Qualified Codes: I63.9 - Cerebral infarction, unspecified Scripts [[id number] ER] 600 MG TABCR No Conflict Check 600 MG PO BID for Chest Congestion/Cough, #60 Prov: Linda Land 11/29/16 Warfarin (Coumadin) 2.5 Mg Tab 2.5 MG PO DAILY@16 for Stroke Prevention, #30 TAB Prov: Linda Land 11/29/16 Enoxaparin Inj (Lovenox Inj) 40 Mg/0.4 Ml Syr 40 MG SQ Q12HR for Stroke Prevention, #60 INJECTION Prov: Linda Land 11/29/16 Ipratropium-Albuterol Neb (Duoneb) 0.5-2.5 Mg/3 Ml Neb 1 AMPULE NEB QID NEB for Broncospasm, #15 ML Prov: Linda Land 11/29/16 Condition: Stable Autumn Chung MD Nov 26, 2016 16:47
--- NOTE | 2016-11-26 17:03 | HHI.PR ---
Objective Objective Results - Vital Signs Date Time Temp Pulse Resp B/P (MAP) Pulse Ox O2 Delivery O2 Flow Rate FiO2 11/26/16 16:45 99 21 11/26/16 14:26 16 97 Room Air 11/26/16 14:03 97.9 83 16 130/59 (82) 99 Result Diagram: 11/26/16 1420 11/26/16 1420 Other Results Laboratory Tests Test 11/26/16 14:20 White Blood Count 10.2 Red Blood Count 4.43 Hemoglobin 13.8 Hematocrit 41.9 Mean Corpuscular Volume 94.5 Mean Corpuscular Hemoglobin 31.2 Mean Corpuscular Hemoglobin Concent 33.0 Red Cell Distribution Width 15.4 Platelet Count 167 Mean Platelet Volume 8.5 Neutrophils (%) (Auto) 36.6 Lymphocytes (%) (Auto) 47.7 Monocytes (%) (Auto) 12.2 Eosinophils (%) (Auto) 2.5 Basophils (%) (Auto) 1.0 Neutrophils # (Auto) 3.7 Lymphocytes # (Auto) 4.9 Monocytes # (Auto) 1.2 Eosinophils # (Auto) 0.3 Basophils # (Auto) 0.1 CBC Comment DIFF FINAL Differential Comment Prothrombin Time 10.5 Prothromb Time International Ratio 1.0 Activated Partial Thromboplast Time 25.9 Blood Urea Nitrogen 44 Creatinine 1.26 Random Glucose 57 Total Protein 7.2 Albumin 3.0 Calcium Level 8.6 Alkaline Phosphatase 364 Aspartate Amino Transf (AST/SGOT) 51 Alanine Aminotransferase (ALT/SGPT) 67 Total Bilirubin 0.4 Sodium Level 141 Potassium Level 4.9 Chloride Level 112 Carbon Dioxide Level 22.4 Anion Gap 7 Estimat Glomerular Filtration Rate 40 Total Creatine Kinase 58 Troponin I LESS THAN 0.02 Physical Exam Physical Exam pt is seen & examined d/w PT & her daughter at bedside d/w Linda see orders see H&P will f/u Ta Albert MD Nov 26, 2016 17:03
--- NOTE | 2016-11-26 17:04 | PD ---
Physical Exam Date Seen by Provider: Nov 26, 2016 Time Seen by Provider: 15:25 Narrative 86-year-old female came to the emergency room for left sided weakness that she noticed after she woke up at 8 in the morning. The weakness is more of her upper extremity than lower extremity. She is also noticed a left-sided facial droop. Patient was fine when she went to bed at 9:30 PM. Her daughter is here who brought her in says that she came home last night at 11:15 at which point patient woke up and had to take her medications. Daughter noticed that she was confused more than usual but did not complain of any weakness. Data Data Last Documented VS Vital Signs Date Time Temp Pulse Resp B/P (MAP) Pulse Ox O2 Delivery O2 Flow Rate FiO2 11/26/16 14:26 16 97 Room Air 11/26/16 14:03 97.9 83 130/59 (82) Orders Orders Electrocardiogram (11/26/16 14:19) Prothrombin Time / Inr (Pt) (11/26/16 14:19) Act Partial Throm Time (Ptt) (11/26/16 14:19) Complete Blood Count With Diff (11/26/16 14:19) Comprehensive Metabolic Panel (11/26/16 14:19) Creatine Kinase (Cpk) (11/26/16 14:19) Troponin I (11/26/16 14:19) Ct Brain W/O Iv Contrast(Rout) (11/26/16 14:19) Chest, Single Ap (11/26/16 14:19) Ecg Monitoring (11/26/16 14:19) Iv Access Insert/Monitor (11/26/16 14:19) Oximetry (11/26/16 14:19) Sodium Chloride 0.9% Flush (Ns Flush) (11/26/16 14:30) Aspirin Chew (Aspirin Chew) (11/26/16 15:15) Consult Neurology (11/26/16 ) Labs Laboratory Tests Test 11/26/16 14:20 White Blood Count 10.2 TH/MM3 Red Blood Count 4.43 MIL/MM3 Hemoglobin 13.8 GM/DL Hematocrit 41.9 % Mean Corpuscular Volume 94.5 FL Mean Corpuscular Hemoglobin 31.2 PG Mean Corpuscular Hemoglobin Concent 33.0 % Red Cell Distribution Width 15.4 % Platelet Count 167 TH/MM3 Mean Platelet Volume 8.5 FL Neutrophils (%) (Auto) 36.6 % Lymphocytes (%) (Auto) 47.7 % Monocytes (%) (Auto) 12.2 % Eosinophils (%) (Auto) 2.5 % Basophils (%) (Auto) 1.0 % Neutrophils # (Auto) 3.7 TH/MM3 Lymphocytes # (Auto) 4.9 TH/MM3 Monocytes # (Auto) 1.2 TH/MM3 Eosinophils # (Auto) 0.3 TH/MM3 Basophils # (Auto) 0.1 TH/MM3 CBC Comment DIFF FINAL Differential Comment Blood Urea Nitrogen 44 MG/DL Creatinine 1.26 MG/DL Random Glucose 57 MG/DL Albumin 3.0 GM/DL Calcium Level 8.6 MG/DL Aspartate Amino Transf (AST/SGOT) 51 U/L Alanine Aminotransferase (ALT/SGPT) 67 U/L Sodium Level 141 MEQ/L Potassium Level 4.9 MEQ/L Chloride Level 112 MEQ/L Carbon Dioxide Level 22.4 MEQ/L Anion Gap 7 MEQ/L Estimat Glomerular Filtration Rate 40 ML/MIN MDM Diagnosis Primary Impression: Acute left-sided weakness Additional Impression: CVA (cerebral vascular accident) Condition: Stable Autumn Chung MD Nov 26, 2016 17:04
--- NOTE | 2016-11-26 17:06 | PD.CONS ---
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 onset >6hrs not tpa candidate. also, on lovenox. was on coumadin but it was discontinued 2/2 bleeding, however inr's have not been therapeutic and it is uncertain what role OAC was playing. was on eliquis as well. currently, living with daughter. ct brain- left frontal extra-axial appearing lesion- probable meningioma. Review of Systems as above/admit hp Past Family Social History Past Medical History COPD anxiety Arthritis Asthma CAD Amaurosis Fugax TIA Hyperlipidemia HTN Hypothyroid Bladder cancer, s/p cystectomy Recurrent neuroendocrine carcinoma Left breast cancer, newly diagnosed due to have lumpectomy with Dr. Schroeder October 05. Supposed to have radiation after with Dr. Morris Recurrent DVT, PE Past Surgical History Appendectomy AVR and single-vessel CABG in 2009 Cholecystectomy Cystectomy with ileal conduit EGD with dilatation Tonsillectomy Lymph node removal Bowel resection Allergies: Coded Allergies: Ambien (Verified Allergy, Severe, Confusion, 09/15/16) Codeine (Verified Allergy, Severe, nausea , 09/15/16) Dramamine (Verified Allergy, Severe, Confusion, 09/15/16) HMG-CoA Reductase Inhibitors (Verified Allergy, Severe, 09/15/16) Family History Reviewed, non contributory Social History Social History , lives with daughter. Non smoker, however heavy second hand exposure. Non drinker. No substance abuse. Review of Systems All other ROS: ROS reviewed as documented in chart Past Family Social History Allergies: Coded Allergies: amlodipine (Unverified Allergy, Severe, 11/26/16) atorvastatin (Unverified Allergy, Severe, 11/26/16) codeine (Unverified Allergy, Severe, nausea , 11/26/16) dimenhydrinate (Unverified Allergy, Severe, Confusion, 11/26/16) simvastatin (Unverified Allergy, Severe, 11/26/16) zolpidem (Unverified Allergy, Severe, Confusion, 11/26/16) Active Ordered Medications Current Medications Medications (Trade) Dose Ordered Sig/Jasmina Route Start Time Stop Time Status Last Admin (NS Flush) 2 ml UNSCH PRN IVF 11/26/16 14:30 (NS Flush) 2 ml BID IV FLUSH 11/26/16 21:00 UNV (NS Flush) 2 ml UNSCH PRN IV FLUSH 11/26/16 16:45 UNV Sodium Chloride 1,000 ml @ 70 mls/hr [id number] IV 11/26/16 16:31 UNV (Vasotec Inj) 1.25 mg Q4H PRN IV PUSH 11/26/16 16:45 UNV (Aspirin Chew) 162 mg DAILY PO 11/27/16 09:00 UNV (Arimidex) 1 mg DAILY PO 11/27/16 09:00 UNV (Tenormin) 50 mg DAILY PO 11/27/16 09:00 UNV (Tessalon) 100 mg TID PRN PO 11/26/16 16:45 UNV (Symbicort 80-4.5 Mcg Inh) 2 puff Q12HR INH 11/26/16 21:00 UNV (Lovenox Inj) 40 mg DAILY SQ 11/27/16 09:00 UNV (Synthroid) 150 mcg DAILY PO 11/27/16 09:00 UNV (Remeron) 45 mg HS PO 11/26/16 21:00 UNV (Singulair) 10 mg HS PO 11/26/16 21:00 UNV (Oramorph Sr) 15 mg Q6HR PO 11/26/16 18:00 UNV (Msir) 15 mg Q4H PRN PO 11/26/16 16:45 UNV (Pravachol) 10 mg HS PO 11/26/16 21:00 UNV Non-Formulary Medication 30 mg DAILY PO 11/27/16 09:00 UNV Exam I&O / VS Vital Signs Date Time Temp Pulse Resp B/P (MAP) Pulse Ox O2 Delivery O2 Flow Rate FiO2 11/26/16 16:45 99 21 11/26/16 14:26 16 97 Room Air 11/26/16 14:03 97.9 83 16 130/59 (82) 99 General: Alert and Oriented, No acute distress Eye: EOMI Neurologic: Alert, Oriented Psychiatric: Cooperative Exam Comments ox 3, follows, mild left nlf redcued, eomi, vff, left hemiparesis 2-3/5 with dystaxia Review/Management Diagnosis/Plan: (1) Acute right MCA stroke ICD Codes: I63.511 - Cerebral infarction due to unspecified occlusion or stenosis of right middle cerebral artery Status: Acute Plan: probable rt mca stroke off full anticoagulation hx of cancer; ? hypercoag state recs mri/mra brain carotid echo p.t. aspirin will consider oac after imaging back (2) Neuroendocrine carcinoma metastatic to multiple sites ICD Codes: C7A.8 - Other malignant neuroendocrine tumors; C7B.8 - Other secondary neuroendocrine tumors Status: Chronic Plan: onc following (3) HTN (hypertension) ICD Codes: I10 - Essential (primary) hypertension Status: Chronic Plan: <160/100 (4) Breast cancer, left ICD Codes: C50.912 - Malignant neoplasm of unspecified site of left female breast Status: Chronic Plan: onc management Problem Qualifiers (1) HTN (hypertension): Qualified Codes: I10 - Essential (primary) hypertension (2) Breast cancer, left: Santos Wilder MD Nov 26, 2016 17:06
[2016-11-26] MEDS ORDERED: PILL SPLITTER OTHER PRN (17:30)
[2016-11-26] MEDS: SODIUM CHLOR 0.9% 1000 ML INJ 1,000 ML IV SCH (17:39)
--- NOTE | 2016-11-26 17:41 | HHI.HP ---
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 Patient presented to the emergency room with complaining of left -sided weakness since awakening this morning, possibly between 8 and 9:30 in the morning. According to the daughter, she fed her breakfast and the patient appeared to be at baseline. She complained last night of feeling generally weak and had some difficulty getting up from the chair. She has been debilitated since recent admissions. Today, she went back to bed after breakfast and when she woke up she complained of left-sided weakness, she states that she couldn't control her left hand. There was no speech difficulty , mild headache, no vision changes. Patient has had recent hospitalizations for multiple complications arising from her chronic conditions. She was initially admitted for COPD with bronchitis and then returned to the hospital with recurring symptoms as well as hematuria. During August readmission, she was found thrombocytopenic and there was a suspicion the patient had TTP but this was ruled out. She underwent workup per her fitness consultant Dr. Dr. Meza. She plasma change 5 treatments and received steroids, her platelets improved. Additionally she was noted with elevated liver enzymes, she underwent workup per gastroenterology and was due to follow-up with Dr. Cohen this week. No exact etiology for the elevated liver enzymes was found,pt. had intermittent hx of elevated LFTs. Because of the hematuria and findings of thrombocytopenia, it was recommended that patient stopped Eliquis and was transitioned to Lovenox. She was eventually discharged in stable condition. On 10/21/2016, she underwent lymph node biopsy and lumpectomy with placement of intraoperative radiation devise and intraoperative radiation. Dr. Morris is her radiation oncologist. She only had one single treatment. After she had the procedure, Dr. Meza recommended transitioning to low dose Coumadin and was being transitioned slowly however she had recurrent hematuria therefore the Coumadin was stopped. She continues on Lovenox injections, however she missed today's dose. Patient was supposed to follow-up with Dr. Paredes this week for the hematuria, and she is currently being treated for recurrent UTI with Bactrim. At this time, she denies any hematuria. Patient and daughter endorse that she has had very poor appetite, she has had ongoing nausea. She denies any chest pain, no shortness of breath. Indicates that there hasn't been any recurrence of any bronchitis symptoms. There hasn't been any recent fever, no chills. In the emergency room, patient was evaluated. Laboratory workup was completed. CBC was essentially unremarkable. BMP was remarkable for mild dehydration, creatinine elevated 1.26. Liver enzymes mildly elevated, similar to previous admission. Chest x-ray showed cardiomegaly, no significant findings. CT of the head did not reveal any acute intracranial abnormality. Small calcified extra-axial rounded lesion in the anterior frontal high vertex reflects sequela of prior injury inflammation. Differential considerations include a small meningioma, although this will be atypical in appearance. Patient initially presented as a stroke alert however she was outside window of TPA and was also not a candidate because of recent bleeding history. Neurology manager labor relations was consulted and called from the emergency room no other workup was ordered. Patient was given aspirin 324 mg by mouth. She remains hemodynamically stable, blood pressure is within normal findings. She is complaining of feeling thirsty and wants something to eat. Her speech is clear and she is neurologically intact. There is obvious left upper extremity and lower extremity weakness. Patient is overall pretty good historian, the rest of the information is supplemented by her 2 children whom she lives with. Patient is admitted for further evaluation and treatment. Review of Systems Constitutional: COMPLAINS OF: Change in appetite (POOR APPETITE), DENIES: Diaphoretic episodes, Fatigue, Fever, Weight gain, Weight loss, Chills, Dizziness, Night Sweats Endocrine: DENIES: Abnorml menstrual pattern, Heat/cold intolerance, Polydipsia , Polyuria, Polyphagia Eyes: DENIES: Blurred vision, Diplopia, Eye inflammation, Eye pain, Vision loss , Photosensitivity, Double Vision Ears, nose, mouth, throat: DENIES: Tinnitus, Hearing loss, Vertigo, Nasal discharge, Oral lesions, Throat pain, Hoarseness, Ear Pain, Running Nose, Epistaxis, Sinus Pain, Toothache, Odynophagia Respiratory: COMPLAINS OF: Cough (OCCASIONAL), DENIES: Apneas, Snoring, Wheezing, Hemoptysis, Sputum production, Shortness of breath Cardiovascular: DENIES: Chest pain, Palpitations, Syncope, Dyspnea on Exertion , PND, Lower Extremity Edema, Orthopnea, Claudication Gastrointestinal: COMPLAINS OF: Nausea, DENIES: Abdominal pain, Black stools, Bloody stools, Constipation, Diarrhea, Vomiting, Difficulty Swallowing, Anorexia Genitourinary: COMPLAINS OF: Hematuria (INTERMITTENT, NONE RECENTLY ), DENIES: Abnormal vaginal bleeding, Dysmenorrhea, Dyspareunia, Sexual dysfunction, Urinary frequency, Urinary incontinence, Urgency, Dysuria, Nocturia, Vaginal discharge Musculoskeletal: DENIES: Joint pain, Muscle aches, Stiffness, Joint Swelling, Back pain, Neck pain Integumentary: DENIES: Abnormal pigmentation, Pruritus, Rash, Nail changes, Breast masses, Breast skin changes, Nipple discharge Hematologic/lymphatic: COMPLAINS OF: Lymphadenopathy (RECENT LEFT LN BX), DENIES: Bruising Immunologic/allergic: DENIES: Eczema, Urticaria Neurologic: COMPLAINS OF: Abnormal gait, Localized weakness, Poor Balance, DENIES: Headache, Paresthesias, Seizures, Speech Problems, Tremor Psychiatric: DENIES: Anxiety, Confusion, Mood changes, Depression, Hallucinations, Agitation, Suicidal Ideation, Homicidal Ideation, Delusions Past Family Social History Past Medical History COPD anxiety Arthritis Asthma CAD Amaurosis Fugax TIA Hyperlipidemia HTN Hypothyroid Neuroendocrine carcinoma pancreas, 1998. Underwent resection of neuroendocrine carcinoma pancreas. Bladder cancer, s/p cystectomy Recurrent neuroendocrine carcinoma Left breast cancer, recent lymph node bx and lumpectomy, placement intraop radiation device (Dr. Schroeder and Dr. Morris) Recurrent DVT, PE Recurrent hematuria, was seen by Dr. Paredes Elevated LFTs, evaluated by GI during August 2016 admission. Due to f/u Dr. Cohen Found with thrombocytopenia, suspected ITP during August admission. Received PPE 5 treatments, also treated with steroids. Platelets improved. She was taken off Eliquis and was put on Lovenox subcutaneous injections for treatment of DVT and PE. Past Surgical History Appendectomy AVR and single-vessel CABG in 2009 Cholecystectomy Cystectomy with ileal conduit EGD with dilatation Tonsillectomy Lymph node removal Bowel resection Status post lymph node biopsy, lumpectomy, placement of intraoperative radiation device, underwent intraoperative radiation October 21, 2016 Reported Medications Reported Meds & Active Scripts Active Lovenox Inj (Enoxaparin Sodium) 40 Mg/0.4 Ml Syr 40 Mg SQ DAILY Lisinopril 20 Mg Tab 20 Mg PO Q12HR 30 Days Hydralazine HCl 25 Mg Tablet 25 Mg PO Q8HR 30 Days Symbicort Inh (Budesonide/Formoterol Fumarate) 80-4.5 Mcg/Act Aero 2 Puff INH Q12HR 30 Days Reported Arimidex (Anastrozole) 1 Mg Tab 1 Mg PO DAILY Morphine IR (Morphine Sulfate) 15 Mg Tab 15 Mg PO Q4H PRN Paroxetine (Paroxetine HCl) 30 Mg Tab 30 Mg PO DAILY Benzonatate 100 Mg Cap 100 Mg PO TID PRN Morphine ER (Morphine Sulfate) 15 Mg Tab 15 Mg PO Q6HR Vitamin D3 (Cholecalciferol) 1,000 Unit Tab 2,000 Units PO DAILY Pravastatin 10 Mg Tab 10 Mg PO HS Singulair (Montelukast Sodium) 10 Mg Tab 10 Mg PO HS Levothyroxine (Levothyroxine Sodium) 150 Mcg Tab 150 Mcg PO DAILY Mirtazapine 45 Mg Tab 45 Mg PO HS Atenolol 50 Mg Tab 50 Mg PO DAILY Allergies: Coded Allergies: amlodipine (Unverified Allergy, Severe, 11/26/16) atorvastatin (Unverified Allergy, Severe, 11/26/16) codeine (Unverified Allergy, Severe, nausea , 11/26/16) dimenhydrinate (Unverified Allergy, Severe, Confusion, 11/26/16) pravastatin (Unverified Allergy, Severe, 11/26/16) simvastatin (Unverified Allergy, Severe, 11/26/16) zolpidem (Unverified Allergy, Severe, Confusion, 11/26/16) Active Ordered Medications Inpatient Medications Anastrozole (Arimidex) 1 mg DAILY PO ; Start 11/27/16 at 09:00; Status UNV Aspirin (Aspirin Chew) 162 mg DAILY PO ; Start 11/27/16 at 09:00; Status UNV Atenolol (Tenormin) 50 mg DAILY PO ; Start 11/27/16 at 09:00; Status UNV Benzonatate (Tessalon) 100 mg TID PRN PO COUGH; Start 11/26/16 at 16:45; Status UNV Budesonide/ Formoterol Fumarate (Symbicort 80-4.5 Mcg Inh) 2 puff Q12HR INH ; Start 11/26/16 at 21:00; Status UNV Enalaprilat (Vasotec Inj) 1.25 mg Q4H PRN IV PUSH For SBP > 220 or DBP > 120; Start 11/26/16 at 16:45; Status UNV Enoxaparin Sodium (Lovenox Inj) 40 mg DAILY SQ ; Start 11/27/16 at 09:00; Status UNV IV Flush (NS Flush) 2 ml UNSCH PRN IV FLUSH FLUSH AFTER USING IV ACCESS; Start 11/26/16 at 16:45; Status UNV Levothyroxine Sodium (Synthroid) 150 mcg DAILY PO ; Start 11/27/16 at 09:00; Status UNV Mirtazapine (Remeron) 45 mg HS PO ; Start 11/26/16 at 21:00; Status UNV Montelukast Sodium (Singulair) 10 mg HS PO ; Start 11/26/16 at 21:00; Status UNV Morphine Sulfate (Msir) 15 mg Q4H PRN PO PAIN; Start 11/26/16 at 16:45; Status UNV Morphine Sulfate (Oramorph Sr) 15 mg Q6HR PO ; Start 11/26/16 at 18:00; Status UNV Non-Formulary Medication 30 mg DAILY PO ; Start 11/27/16 at 09:00; Status UNV Pravastatin Sodium (Pravachol) 10 mg HS PO ; Start 11/26/16 at 21:00; Status UNV Sodium Chloride 1,000 ml @ 70 mls/hr [id number] IV ; Start 11/26/16 at 16:31; Status UNV Sodium Chloride (NS Flush) 2 ml UNSCH PRN IVF FLUSH AFTER USING IV ACCESS; Start 11/26/16 at 14:30 Family History Reviewed, non contributory Social History , lives with daughter and son. Non smoker, however heavy second hand exposure. Non drinker. No substance abuse.Has been debilitated, using WC, walker and cane. Patient recently moved from [place]. Physical Exam Vital Signs Vital Signs Date Time Temp Pulse Resp B/P (MAP) Pulse Ox O2 Delivery O2 Flow Rate FiO2 11/26/16 16:45 99 21 11/26/16 14:26 16 97 Room Air 11/26/16 14:03 97.9 83 16 130/59 (82) 99 Physical Exam GENERAL: This is a well-nourished, well-developed patient, in no apparent distress. SKIN: No rashes, ecchymoses or lesions. Cool and dry. HEAD: Atraumatic. Normocephalic. No temporal or scalp tenderness. EYES: Pupils equal round and reactive. Extraocular motions intact. No scleral icterus. No injection or drainage. ENT: Nose without bleeding, purulent drainage or septal hematoma. Throat without erythema, tonsillar hypertrophy or exudate. Uvula midline. Airway patent. NECK: Trachea midline. No JVD or lymphadenopathy. Supple, nontender, no meningeal signs. CARDIOVASCULAR: Regular rate and rhythm with 2/6 murmurs, no gallops, no rubs. RESPIRATORY: Mild expiratory wheezing, faint scattered rhonchi. GASTROINTESTINAL: Abdomen soft, non-tender, nondistended. No hepato-splenomegaly , or palpable masses. No guarding. MUSCULOSKELETAL: Extremities without clubbing, cyanosis, or edema. No joint tenderness, effusion, or edema noted. No calf tenderness. Negative Homans sign bilaterally. NEUROLOGICAL: Awake, alert oriented 3. Speech is clear. Noted with left upper extremity distal weakness, ataxia with [id number]. Left upper extremity strength is 3 out of 5. Left lower extremity weakness, 3 out of 5. Laboratory Laboratory Tests Test 11/26/16 14:20 White Blood Count 10.2 Red Blood Count 4.43 Hemoglobin 13.8 Hematocrit 41.9 Mean Corpuscular Volume 94.5 Mean Corpuscular Hemoglobin 31.2 Mean Corpuscular Hemoglobin Concent 33.0 Red Cell Distribution Width 15.4 Platelet Count 167 Mean Platelet Volume 8.5 Neutrophils (%) (Auto) 36.6 Lymphocytes (%) (Auto) 47.7 Monocytes (%) (Auto) 12.2 Eosinophils (%) (Auto) 2.5 Basophils (%) (Auto) 1.0 Neutrophils # (Auto) 3.7 Lymphocytes # (Auto) 4.9 Monocytes # (Auto) 1.2 Eosinophils # (Auto) 0.3 Basophils # (Auto) 0.1 CBC Comment DIFF FINAL Differential Comment Prothrombin Time 10.5 Prothromb Time International Ratio 1.0 Activated Partial Thromboplast Time 25.9 Blood Urea Nitrogen 44 Creatinine 1.26 Random Glucose 57 Total Protein 7.2 Albumin 3.0 Calcium Level 8.6 Alkaline Phosphatase 364 Aspartate Amino Transf (AST/SGOT) 51 Alanine Aminotransferase (ALT/SGPT) 67 Total Bilirubin 0.4 Sodium Level 141 Potassium Level 4.9 Chloride Level 112 Carbon Dioxide Level 22.4 Anion Gap 7 Estimat Glomerular Filtration Rate 40 Total Creatine Kinase 58 Troponin I LESS THAN 0.02 Result Diagram: 11/26/16 1420 11/26/16 142 Caprini VTE Risk Assessment Caprini VTE Risk Assessment: Mod/High Risk (score >= 2) Caprini Risk Assessment Model Point Value = 1 Point Value = 2 Point Value = 3 Point Value = 5 Age 41-60 Minor surgery BMI > 25 kg/m2 Swollen legs Varicose veins or History of unexplained or recurrent spontaneous Oral contraceptives or hormone replacement Sepsis (< 1 month) Serious lung disease, including pneumonia (< 1 month) Abnormal pulmonary function Acute myocardial infarction Congestive heart failure (< 1 month) History of inflammatory bowel disease Medical patient at bed rest Age 61-74 Arthroscopic surgery Major open surgery (> 45 min) Laparoscopic surgery (> 45 min) Malignancy Confined to bed (> 72 hours) Immobilizing plaster cast Central venous access Age >= 75 History of VTE Family history of VTE Factor V Leiden Prothrombin [id number] Lupus anticoagulant Anticardiolipin antibodies Elevated serum homocysteine Heparin-induced thrombocytopenia Other congenital or acquired thrombophilia Stroke (< 1 month) Elective arthroplasty Hip, pelvis, or leg fracture Acute spinal cord injury (< 1 month) Prophylaxis Regimen Total Risk Factor Score Risk Level Prophylaxis Regimen 0-1 Low Early ambulation 2 Moderate Order ONE of the following: *Sequential Compression Device (SCD) *Heparin 5000 units SQ BID 3-4 Higher Order ONE of the following medications: *Heparin 5000 units SQ TID *Enoxaparin/Lovenox 40 mg SQ daily (WT < 150 kg, CrCl > 30 mL/min) *Enoxaparin/Lovenox 30 mg SQ daily (WT < 150 kg, CrCl > 10-29 mL/min) *Enoxaparin/Lovenox 30 mg SQ BID (WT < 150 kg, CrCl > 30 mL/min) AND/OR *Sequential Compression Device (SCD) 5 or more Highest Order ONE of the following medications: *Heparin 5000 units SQ TID (Preferred with Epidurals) *Enoxaparin/Lovenox 40 mg SQ daily (WT < 150 kg, CrCl > 30 mL/min) *Enoxaparin/Lovenox 30 mg SQ daily (WT < 150 kg, CrCl > 10-29 mL/min) *Enoxaparin/Lovenox 30 mg SQ BID (WT < 150 kg, CrCl > 30 mL/min) AND *Sequential Compression Device (SCD) Assessment and Plan Problem List: (1) CVA (cerebral vascular accident) ICD Codes: I63.9 - Cerebral infarction, unspecified Status: Acute (2) Acute left-sided weakness ICD Codes: M62.89 - Other specified disorders of muscle Status: Acute (3) Hx pulmonary embolism ICD Codes: Z86.711 - Personal history of pulmonary embolism Status: Chronic (4) Hx of deep venous thrombosis ICD Codes: Z86.718 - Personal history of other venous thrombosis and embolism Status: Chronic (5) COPD with exacerbation ICD Codes: J44.1 - Chronic obstructive pulmonary disease with (acute) exacerbation Status: Chronic (6) Hx of bladder cancer ICD Codes: Z85.51 - Personal history of malignant neoplasm of bladder Status: Chronic (7) HTN (hypertension) ICD Codes: I10 - Essential (primary) hypertension Status: Chronic (8) Breast cancer, left ICD Codes: C50.912 - Malignant neoplasm of unspecified site of left female breast Status: Acute (9) Hematuria ICD Codes: R31.9 - Hematuria, unspecified Status: Chronic (10) Murmur ICD Codes: R01.1 - Cardiac murmur, unspecified Status: Chronic (11) Hx of thrombocytopenia ICD Codes: Z86.2 - Personal history of diseases of the blood and blood-forming organs and certain disorders involving the immune mechanism Status: Chronic (12) Elevated LFTs ICD Codes: R79.89 - Other specified abnormal findings of blood chemistry Status: Chronic Assessment and Plan Admit to Dr. Albert 86-year-old elderly white female with multiple comorbidities, presented with left-sided weakness. History of thrombocytopenia, prior TIA, chronic anticoagulation for history of DVT and PE. History of bladder cancer, now with left breast cancer. Acute left-sided weakness, possible CVA CT findings negative for acute stroke. Finding of small meningioma. -Continue with neuro checks -Bed rest today and increase activity tomorrow after 24 hours -Normal saline at 70 an hour -Consult neurology for evaluation -Continue with aspirin 162 mg by mouth daily -Neuro workup to include MRA and MRI of the brain, carotid ultrasound. Had recent echocardiogram, September 2016, EF 65-70%. Mild to moderate prostatic regurgitation of aortic valve breast the services, left atrial size moderately dilated. -Lipid profile and hemoglobin A1c in the morning -Continue statins -Permissive hypertension for 24 hours -Continuous cardiac telemetry -PT, OT, speech therapy Renal insufficiency, likely dehydrated -Continue with IV fluids -Monitor renal function Left breast cancer, underwent recent biopsy and lumpectomy with intraoperative radiation. -Stable continue to monitor -Consult her oncologist Chronic anticoagulation for history of DVT and PE, currently on Lovenox. Was recently on Coumadin, this was stopped due to hematuria. -Continue with Lovenox for now -Hematology consultation. Recurrent hematuria, history of bladder cancer, underwent cystectomy Recurrent UTI -Continue to monitor for hematuria -Monitor H&H, stable -We'll check UA and UC Elevated liver enzymes, underwent recent GI workup -Continue to monitor liver enzymes Recent admission for COPD with bronchitis, has scattered fine rhonchi and mild expiratory wheezing -DuoNeb's 4 times a day -Monitor sats -Resume Symbicort -Continue Tessalon as needed for cough History of DVT and PE on Lovenox -Continue with Lovenox Hypertension, well-controlled -Continue home medications Physical debility, has had recent hospitalization with multiple complications -Physical therapy for evaluation Home medications reviewed, initiated as indicated Continue with Lovenox for DVT prophylaxis Consult PT, speech therapy and occupational therapy We will await for further input from consultants. Patient has multiple comorbidities and recent complications, has been debilitated. We will see how she progresses during this hospitalization, she may benefit from palliative care services. Plan of care has been discussed with the patient and her family, their questions answered detail. Plan of care discussed with attending and registered nurse. Further management of the patient will be dependent on the hospital course This patient was seen by myself and Dr. Albert, this H&P is written on his behalf Physician Certification 2 Midnight Certification Type: Admission for Inpatient Services Order for Inpatient Services The services are ordered in accordance with Medicare regulations or non- Medicare payer requirements, as applicable. In the case of services not specified as inpatient-only, they are appropriately provided as inpatient services in accordance with the 2-midnight benchmark. Estimated LOS (days): 2 2 days is the estimated time the patient will need to remain in the hospital, assuming treatment plan goals are met and no additional complications. Post-Hospital Plan: Home Health Problem Qualifiers (1) CVA (cerebral vascular accident): Qualified Codes: I63.9 - Cerebral infarction, unspecified (2) HTN (hypertension): Qualified Codes: I10 - Essential (primary) hypertension (3) Breast cancer, left: [facility] Nov 26, 2016 17:41
--- NOTE | 2016-11-26 18:51 | RADRPT ---
EXAM DATE/TIME: 11/26/2016 18:07 [facility] COMPARISON: No previous studies available for comparison. INDICATIONS : CVA. MEDICAL HISTORY : Carcinoma, colon. Carcinoma, breast. Carcinoma, bladder. HTN. COPD. SURGICAL HISTORY : Colon resection. Appendectomy. Cholecystectomy. Urostomy. Cardiac valve replacement. Tonsillectomy. ENCOUNTER: Subsequent ACUITY: 1 day PAIN SCORE: 3/10 LOCATION: cranial TECHNIQUE: Multiplanar, multisequence MRI of the brain was performed without contrast. FINDINGS: There is a small focus of restricted diffusion in the right frontoparietal centrum semiovale consiste nt with small area of white matter lacunar infarction. There is patchy fairly symmetric T2 prolongati on in the periventricular and subcortical white matter which has a benign chronic appearance. There i s no evidence of intracranial hemorrhage or mass. The posterior fossa and brainstem structures are fo bandar unremarkable. The extracranial structures are benign and intact. CONCLUSION: Small subacute white matter lacunae in the high convexity right frontoparietal region. Chronic microv ascular ischemic changes. Ho Lal MD on November 26, 2016 at 18:47 Board Certified Radiologist. This report was verified electronically.
--- NOTE | 2016-11-26 18:52 | RADRPT ---
EXAM DATE/TIME: 11/26/2016 18:07 [facility] COMPARISON: No previous studies available for comparison. INDICATIONS : Stroke. MEDICAL HISTORY : Carcinoma, colon. Carcinoma, breast. Carcinoma, bladder. HTN. COPD. SURGICAL HISTORY : Colon resection. Appendectomy. Cholecystectomy. Urostomy. Cardiac valve replacement. Tonsillectomy. ENCOUNTER: Subsequent ACUITY: 1 day PAIN SCORE: 3/10 LOCATION: cranial Please note a normal MRA of the brain does not entirely exclude the possibility of a small aneurysm, nor the possibility of distal intracranial vessel disease. TECHNIQUE: 3D time of flight MRA was performed. Source images, multiplanar STS MIP, and 3D volume MIP reconstru ctions were reviewed. FINDINGS: There is excellent visualization of the major intracranial arteries out to the second-order branch ve ssels. There is no evidence for aneurysm, vessel truncation or stenosis, and no evidence for vascula r malformation. CONCLUSION: Normal examination. Ho Lal MD on November 26, 2016 at 18:50 Board Certified Radiologist. This report was verified electronically.
[2016-11-26] MEDS: MORPHINE SULFATE 15 MG CONTROLLED RELEASE TAB PO SCH (19:22)
[2016-11-26] MEDS: SODIUM CHLORIDE 0.9% FLUSH 5 ML FLUSH IV FLUSH SCH (20:45)
[2016-11-26] MEDS: MIRTAZAPINE 15 MG TAB PO SCH (21:06)
[2016-11-26] MEDS: BUDESONIDE-FORMOTEROL 80/4.5 MCG INHALER INH SCH (21:06)
[2016-11-26] MEDS: MONTELUKAST SODIUM 10 MG TAB PO SCH (21:06)
[2016-11-26] MEDS: PRAVASTATIN SOD 10 MG TAB PO SCH (21:06)
[2016-11-26] MEDS: RESP: ALBUTEROL 2.5 MG/IPRATROPIUM 0.5 MG NEB (SCH) NEB (21:10)
[2016-11-26 21:41] LABS: HEMOGLOBIN A1a 0.9 %; HEMOGLOBIN A1b 0.9 %; HEMOGLOBIN Ao 83.7 %; HEMOGLOBIN LA1C 1.9 %; HEMOGLOBIN P3 5.7 %
--- NOTE | 2016-11-26 22:07 | RADRPT ---
EXAM DATE/TIME: 11/26/2016 20:09 [place] COMPARISON: No previous studies available for comparison. INDICATIONS : Cerebrovascular accident. MEDICAL HISTORY : Hypercholesterolemia. Hypertension. Chronic obstructive pulmonary disease. Thyroid disease. Congesti ve heart failure. Coronary artery disease. Asthma. Carcinoma, bladder. Carcinoma, bowel. SURGICAL HISTORY : Tonsillectomy. Appendectomy. Cholecystectomy. Bovine valve placement. Urostomy. Aortic lymph node r emoval. Bowel resection. ENCOUNTER: Initial ACUITY: 1 day PAIN SCORE: 2/10 LOCATION: Bilateral neck PEAK SYSTOLIC VELOCITIES (cm/sec): ICA/CCA RATIO: Right: 1.1 Left: 0.8 ICA: Right: 64.6 Left: 59.6 CCA: Right: 60.3 Left: 75.8 ECA: Right: 96.8 Left: 79.0 VERTEBRAL: Right: 50.3 antegrade Left: 67.7 antegrade Elevated flow velocities and ICA/CCA ratios have been found to correlate with increased degrees of vessel stenosis, calculated as percentage of diameter relative to a normal segment of distal ICA/CCA FINDINGS: RIGHT CAROTID: Minimal plaque is seen at the carotid bulb region. No significant stenosis is visualized. The wavefo tiffanie are within normal limits. LEFT CAROTID: Minimal plaque is seen at the carotid bulb region. No significant stenosis is visualized. The wavefo tiffanie are within normal limits. VERTEBRAL ARTERIES: Antegrade flow is seen in both vertebral arteries. MISCELLANEOUS: None. CONCLUSION: Minimal plaque at the carotid bulb regions without a significant stenosis. Ho Salinas MD on November 26, 2016 at 22:04 Board Certified Radiologist. This report was verified electronically.
[2016-11-27] VITALS (8 sets, daily range): BP systolic 103–152; BP diastolic 61–69; PULSE 69–84; RESP 20; TEMP 97.6–98.5; O2SAT 92–100
[2016-11-27] MEDS: MORPHINE SULFATE 15 MG CONTROLLED RELEASE TAB PO SCH ×4 (01:07→18:29)
[2016-11-27] MEDS: SODIUM CHLOR 0.9% 1000 ML INJ 1,000 ML IV SCH (06:18)
[2016-11-27 07:18] LABS: ANION GAP 7 MEQ/L (5-15); AST (GOT) 65 U/L (15-37); BICARBONATE 19.7 MEQ/L (21.0-32.0); BLOOD UREA NITROGEN 42 MG/DL (7-18); CHLORIDE 112 MEQ/L (98-107); GLOMERULAR FILTRATION RATE 47 ML/MIN (>89); POTASSIUM 5.2 MEQ/L (3.5-5.1); SODIUM (NA) 139 MEQ/L (136-145)
[2016-11-27 07:20] LABS: ALT (GPT) 62 U/L (10-53)
[2016-11-27 07:21] LABS: ALKALINE PHOSPHATASE 407 U/L (45-117); HDL CHOLESTEROL 62.6 MG/DL (40.0-60.0); LDL CHOLESTEROL 73 MG/DL (0-99); TOTAL BILIRUBIN ADULT 0.4 MG/DL (0.2-1.0)
[2016-11-27] MEDS: RESP: ALBUTEROL 2.5 MG/IPRATROPIUM 0.5 MG NEB (SCH) NEB ×4 (08:05→19:10)
--- NOTE | 2016-11-27 08:33 | HHI.PR ---
Review/Management Diagnosis/Plan: (1) Acute right MCA stroke ICD Codes: I63.511 - Cerebral infarction due to unspecified occlusion or stenosis of right middle cerebral artery Status: Acute Plan: probable rt mca stroke off full anticoagulation hx of cancer; ? hypercoag state mri vasquez reviewed- small rt subcortical infarct; mra brain/carotids nml recs motor exam improved can resume OAC and bridge with aspirin. ? coumadin safer bet. bled on eliquis potentially. will get onc input p.t. probable inpt rehab d/w pt/charge master coordinator (2) Neuroendocrine carcinoma metastatic to multiple sites ICD Codes: C7A.8 - Other malignant neuroendocrine tumors; C7B.8 - Other secondary neuroendocrine tumors Status: Chronic Plan: onc following (3) HTN (hypertension) ICD Codes: I10 - Essential (primary) hypertension Status: Chronic Plan: <160/100 (4) Breast cancer, left ICD Codes: C50.912 - Malignant neoplasm of unspecified site of left female breast Status: Chronic Plan: onc management Subjective Subjective Comments No acute events reported No headache No chest pain No dyspnea Active Medications Current Medications Medications (Trade) Dose Ordered Sig/Jasmina Route Start Time Stop Time Status Last Admin (NS Flush) 2 ml UNSCH PRN IVF 11/26/16 14:30 (NS Flush) 2 ml BID IV FLUSH 11/26/16 21:00 (NS Flush) 2 ml UNSCH PRN IV FLUSH 11/26/16 16:45 Sodium Chloride 1,000 ml @ 70 mls/hr [id number] IV 11/26/16 16:31 11/27/16 06:18 (Vasotec Inj) 1.25 mg Q4H PRN IV PUSH 11/26/16 16:45 (Aspirin Chew) 162 mg DAILY PO 11/27/16 09:00 (Arimidex) 1 mg DAILY PO 11/27/16 09:00 (Tenormin) 50 mg DAILY PO 11/27/16 09:00 (Tessalon) 100 mg TID PRN PO 11/26/16 16:45 (Symbicort 80-4.5 Mcg Inh) 2 puff Q12HR INH 11/26/16 21:00 11/26/16 21:06 (Lovenox Inj) 40 mg DAILY SQ 11/27/16 09:00 (Synthroid) 150 mcg DAILY PO 11/27/16 09:00 (Remeron) 45 mg HS PO 11/26/16 21:00 11/26/16 21:06 (Singulair) 10 mg HS PO 11/26/16 21:00 11/26/16 21:06 (Oramorph Sr) 15 mg Q6HR PO 11/26/16 18:00 11/27/16 06:15 (Msir) 15 mg Q4H PRN PO 11/26/16 16:45 (Pravachol) 10 mg HS PO 11/26/16 21:00 11/26/16 21:06 (Paxil) 30 mg DAILY PO 11/27/16 09:00 (Pill Splitter) 1 ea UNSCH PRN OTHER 11/26/16 17:30 (Duoneb Neb) 1 ampule QID NEB NEB 11/26/16 20:00 11/27/16 08:05 Allergies Allergies Coded Allergies amlodipine (Unverified Allergy, Severe, 11/26/16) atorvastatin (Unverified Allergy, Severe, 11/26/16) codeine (Unverified Allergy, Severe, nausea , 11/26/16) dimenhydrinate (Unverified Allergy, Severe, Confusion, 11/26/16) simvastatin (Unverified Allergy, Severe, 11/26/16) zolpidem (Unverified Allergy, Severe, Confusion, 11/26/16) Review of Systems All other ROS: ROS reviewed as documented in chart Exam I&O / VS Vital Signs Date Time Temp Pulse Resp B/P (MAP) Pulse Ox O2 Delivery O2 Flow Rate FiO2 11/27/16 08:20 95 11/27/16 05:54 98.3 71 134/65 (88) 97 11/27/16 01:05 98.2 84 20 103/69 (80) 92 11/26/16 23:06 98.7 77 20 123/60 (81) 97 11/26/16 22:06 11/26/16 21:12 98 21 11/26/16 19:15 73 18 146/59 (88) 96 Room Air 11/26/16 17:00 72 16 135/58 (83) 99 Room Air 11/26/16 16:45 99 21 11/26/16 16:00 70 16 111/57 (75) 99 Room Air 11/26/16 15:00 74 16 97/51 (66) 96 Room Air 11/26/16 14:26 16 97 Room Air 11/26/16 14:03 97.9 83 16 130/59 (82) 99 General: Alert and Oriented, No acute distress Eye: EOMI Respiratory: Non-labored respirations Cardiology: Normal rate Neurologic: Alert, Oriented, Normal sensory Psychiatric: Cooperative Exam Comments ox 3, follows, articulate, eating breakfast in bed, eomi, vff, left hemiparesis 3-4/5 with dystaxia Objective Micro and Labs Laboratory Tests Test 11/26/16 14:20 11/27/16 05:43 White Blood Count 10.2 Red Blood Count 4.43 Hemoglobin 13.8 Hematocrit 41.9 Mean Corpuscular Volume 94.5 Mean Corpuscular Hemoglobin 31.2 Mean Corpuscular Hemoglobin Concent 33.0 Red Cell Distribution Width 15.4 Platelet Count 167 Mean Platelet Volume 8.5 Neutrophils (%) (Auto) 36.6 Lymphocytes (%) (Auto) 47.7 Monocytes (%) (Auto) 12.2 Eosinophils (%) (Auto) 2.5 Basophils (%) (Auto) 1.0 Neutrophils # (Auto) 3.7 Lymphocytes # (Auto) 4.9 Monocytes # (Auto) 1.2 Eosinophils # (Auto) 0.3 Basophils # (Auto) 0.1 CBC Comment DIFF FINAL Differential Comment Prothrombin Time 10.5 Prothromb Time International Ratio 1.0 Activated Partial Thromboplast Time 25.9 Blood Urea Nitrogen 44 42 Creatinine 1.26 1.11 Random Glucose 57 81 Total Protein 7.2 6.1 Albumin 3.0 2.5 Calcium Level 8.6 8.2 Alkaline Phosphatase 364 407 Aspartate Amino Transf (AST/SGOT) 51 65 Alanine Aminotransferase (ALT/SGPT) 67 62 Total Bilirubin 0.4 0.4 Sodium Level 141 139 Potassium Level 4.9 5.2 Chloride Level 112 112 Carbon Dioxide Level 22.4 19.7 Anion Gap 7 7 Estimat Glomerular Filtration Rate 40 47 Hemoglobin A1c 6.9 Total Creatine Kinase 58 Troponin I LESS THAN 0.02 Triglycerides Level 64 Cholesterol Level 148 LDL Cholesterol 73 HDL Cholesterol 62.6 Cholesterol/HDL Ratio 2.36 Problem Qualifiers (1) HTN (hypertension): Qualified Codes: I10 - Essential (primary) hypertension (2) Breast cancer, left: Santos Wilder MD Nov 27, 2016 08:33
[2016-11-27] MEDS: BUDESONIDE-FORMOTEROL 80/4.5 MCG INHALER INH SCH ×2 (09:00→21:00)
[2016-11-27] MEDS: SODIUM CHLORIDE 0.9% FLUSH 5 ML FLUSH IV FLUSH SCH ×2 (09:00→21:00)
[2016-11-27] MEDS: LEVOTHYROXINE SODIUM 150 MCG TAB PO SCH (09:28)
[2016-11-27] MEDS: ATENOLOL 50 MG TAB PO SCH (09:28)
[2016-11-27] MEDS: ASPIRIN 81 MG CHEW TAB PO SCH (09:28)
[2016-11-27] MEDS: ANASTROZOLE 1 MG TAB PO SCH (09:28)
[2016-11-27] MEDS: ENOXAPARIN SODIUM 40 MG/0.4 ML SYRINGE SQ SCH (09:29)
[2016-11-27] MEDS: PARoxetine HCL 20 MG TAB PO SCH (09:37)
--- NOTE | 2016-11-27 12:40 | MG ---
cc: DEYANIRA PENNINGTON MD Lab No: [id number] Date: 11/27/2016 : 1930 Sex: F INDICATION An 86-year-old female with a history of left-sided weakness, confusion, speech changes. DESCRIPTION Posterior rhythm demonstrates 5-7 Hz activity followed by 2-3 Hz delta activity, 20-70 microvolts. Transition into drowsy state. Some stage I sleep. Good EEG variability and reactivity. Reduced driving with photic stimulation. Single lead EKG showing some irregular activity. Occasional rare arm jerk without any epileptic correlation. INTERPRETATION Mild encephalopathy in sleep state. Clinical correlation. Deyanira Pennington MD MG/BT /11:47 AM /12:23 PM
--- NOTE | 2016-11-27 13:23 | HHI.PR ---
Subjective Remarks sitting up in chair left arm/hand better, trying to feed herself left leg still weak speech ok slight left facial droop headache, radiates from back to frontal BP stable some cough and wheezing no cp no fever Objective Objective Results - Vital Signs Date Time Temp Pulse Resp B/P (MAP) Pulse Ox O2 Delivery O2 Flow Rate FiO2 11/27/16 12:10 98.5 69 20 130/63 (85) 95 11/27/16 08:20 95 11/27/16 08:00 98.2 77 20 126/61 (82) 99 11/27/16 05:54 98.3 71 134/65 (88) 97 11/27/16 01:05 98.2 84 20 103/69 (80) 92 11/26/16 23:06 98.7 77 20 123/60 (81) 97 11/26/16 22:06 11/26/16 21:12 98 21 11/26/16 19:15 73 18 146/59 (88) 96 Room Air 11/26/16 17:00 72 16 135/58 (83) 99 Room Air 11/26/16 16:45 99 21 11/26/16 16:00 70 16 111/57 (75) 99 Room Air 11/26/16 15:00 74 16 97/51 (66) 96 Room Air 11/26/16 14:26 16 97 Room Air 11/26/16 14:03 97.9 83 16 130/59 (82) 99 I/O 11/26/16 11/26/16 11/26/16 11/27/16 11/27/16 11/27/16 07:00 15:00 23:00 07:00 15:00 23:00 Intake Total 240 ml Output Total 200 ml 450 ml Balance 40 ml -450 ml Intake Oral 240 ml Output Urine Total 200 ml 450 ml Result Diagram: 11/26/16 1420 11/27/16 0543 Other Results Laboratory Tests Test 11/26/16 14:20 11/27/16 05:43 White Blood Count 10.2 Red Blood Count 4.43 Hemoglobin 13.8 Hematocrit 41.9 Mean Corpuscular Volume 94.5 Mean Corpuscular Hemoglobin 31.2 Mean Corpuscular Hemoglobin Concent 33.0 Red Cell Distribution Width 15.4 Platelet Count 167 Mean Platelet Volume 8.5 Neutrophils (%) (Auto) 36.6 Lymphocytes (%) (Auto) 47.7 Monocytes (%) (Auto) 12.2 Eosinophils (%) (Auto) 2.5 Basophils (%) (Auto) 1.0 Neutrophils # (Auto) 3.7 Lymphocytes # (Auto) 4.9 Monocytes # (Auto) 1.2 Eosinophils # (Auto) 0.3 Basophils # (Auto) 0.1 CBC Comment DIFF FINAL Differential Comment Prothrombin Time 10.5 Prothromb Time International Ratio 1.0 Activated Partial Thromboplast Time 25.9 Blood Urea Nitrogen 44 42 Creatinine 1.26 1.11 Random Glucose 57 81 Total Protein 7.2 6.1 Albumin 3.0 2.5 Calcium Level 8.6 8.2 Alkaline Phosphatase 364 407 Aspartate Amino Transf (AST/SGOT) 51 65 Alanine Aminotransferase (ALT/SGPT) 67 62 Total Bilirubin 0.4 0.4 Sodium Level 141 139 Potassium Level 4.9 5.2 Chloride Level 112 112 Carbon Dioxide Level 22.4 19.7 Anion Gap 7 7 Estimat Glomerular Filtration Rate 40 47 Hemoglobin A1c 6.9 Total Creatine Kinase 58 Troponin I LESS THAN 0.02 Triglycerides Level 64 Cholesterol Level 148 LDL Cholesterol 73 HDL Cholesterol 62.6 Cholesterol/HDL Ratio 2.36 ROS General: Weakness (left sided weakness) HEENT: No: Sore Throat, Dysphagia Cardiac: No: Chest Pain, Edema, Palpitations Pulmonary: Cough, Wheezing GI: No: Abdominal Pain, BM, Diarrhea, N/V /PROFESSOR OF LITERACY: No: Dysuria, Urgency Neuro/MS: No: Lightheaded, Confusion Psych: No: Anxiety, Depression Skin: No: Itching, Rash Physical Exam Physical Exam GENERAL: This is a well-nourished, well-developed patient, in no apparent distress. SKIN: No rashes, ecchymoses or lesions. Cool and dry. HEAD: Atraumatic. Normocephalic. No temporal or scalp tenderness. EYES: Pupils equal round and reactive. Extraocular motions intact. No scleral icterus. No injection or drainage. ENT: Nose without bleeding, purulent drainage or septal hematoma. Throat without erythema, tonsillar hypertrophy or exudate. Uvula midline. Airway patent. NECK: Trachea midline. No JVD or lymphadenopathy. Supple, nontender, no meningeal signs. CARDIOVASCULAR: Regular rate and rhythm with 2/6 murmurs, no gallops, no rubs. RESPIRATORY: Mild expiratory wheezing, faint scattered rhonchi. GASTROINTESTINAL: Abdomen soft, non-tender, nondistended. No hepato-splenomegaly , or palpable masses. No guarding. MUSCULOSKELETAL: Extremities without clubbing, cyanosis, or edema. No joint tenderness, effusion, or edema noted. No calf tenderness. Negative Homans sign bilaterally. NEUROLOGICAL: Awake, alert oriented 3. Speech is clear. Left nasolabial fold droop. Noted with left upper extremity distal weakness, ataxia with finger-to- nose. Left upper extremity strength is 3 out of 5. Left lower extremity weakness, 3 out of 5. Urinary Catheter: No Vascular Central Line Catheter: No A/P Diagnosis: (1) CVA (cerebral vascular accident) ICD Codes: I63.9 - Cerebral infarction, unspecified Status: Acute (2) Acute left-sided weakness ICD Codes: M62.89 - Other specified disorders of muscle Status: Acute (3) Hx pulmonary embolism ICD Codes: Z86.711 - Personal history of pulmonary embolism Status: Chronic (4) Hx of deep venous thrombosis ICD Codes: Z86.718 - Personal history of other venous thrombosis and embolism Status: Chronic (5) COPD with exacerbation ICD Codes: J44.1 - Chronic obstructive pulmonary disease with (acute) exacerbation Status: Chronic (6) Hx of bladder cancer ICD Codes: Z85.51 - Personal history of malignant neoplasm of bladder Status: Chronic (7) HTN (hypertension) ICD Codes: I10 - Essential (primary) hypertension Status: Chronic (8) Breast cancer, left ICD Codes: C50.912 - Malignant neoplasm of unspecified site of left female breast Status: Chronic (9) Hematuria ICD Codes: R31.9 - Hematuria, unspecified Status: Chronic (10) Murmur ICD Codes: R01.1 - Cardiac murmur, unspecified Status: Chronic (11) Hx of thrombocytopenia ICD Codes: Z86.2 - Personal history of diseases of the blood and blood-forming organs and certain disorders involving the immune mechanism Status: Chronic (12) Elevated LFTs ICD Codes: R79.89 - Other specified abnormal findings of blood chemistry Status: Chronic Assessment and Plan 86-year-old elderly white female with multiple comorbidities, presented with left-sided weakness. History of thrombocytopenia, prior TIA, chronic anticoagulation for history of DVT and PE. History of bladder cancer, now with left breast cancer. Acute left-sided weakness-Right MCA stroke -Continue with neuro checks -appreciate neuro input, recommends heme evaluation for recommendations on OAC. Poss coumadin, safer choice. ? hypercoag status -Continue with aspirin 162 mg by mouth daily and Lovenox for now -Brain MRI, + right MCA stroke -CUS-minimal plaque. Had recent echocardiogram, September 2016, EF 65-70%. Mild to moderate prostatic regurgitation of aortic valve breast the services, left atrial size moderately dilated. -EEG okay, mild encephalopathy -hemoglobin A1c 6.9 -Continue statins, lipid profile noted -control BP, stable -PT, OT, speech therapy -stable, needs rehab. BP well controlled Renal insufficiency, likely dehydrated -hyperkalemia, 5.2, repeat BMP in am -improved renal function Left breast cancer, underwent recent biopsy and lumpectomy with intraoperative radiation. -Stable continue to monitor -Consult her oncologist -pending Chronic anticoagulation for history of DVT and PE, currently on Lovenox. Was recently on Coumadin, this was stopped due to hematuria. -Continue with Lovenox for now -Hematology consultation pending Recurrent hematuria, history of bladder cancer, underwent cystectomy Recurrent UTI -Continue to monitor for hematuria -Monitor H&H, stable Elevated liver enzymes, underwent recent GI workup -Continue to monitor liver enzymes, unchanged. Recent admission for COPD with bronchitis, has scattered fine rhonchi and mild expiratory wheezing -DuoNeb's 4 times a day -Monitor sats -continue Symbicort -Continue Tessalon as needed for cough History of DVT and PE on Lovenox -Continue with Lovenox Hypertension, well-controlled -Continue home medications Physical debility, has had recent hospitalization with multiple complications -Physical therapy for evaluation Continue with Lovenox for DVT prophylaxis continue with PT, speech therapy and occupational therapy Patient has multiple comorbidities and recent complications, has been debilitated. We will see how she progresses during this hospitalization, she may benefit from palliative care services. Repeat labs in am CIR evaluating, pt. amenable to go to rehab D/W RN D/W Dr. Albert D/W pt This patient was seen by myself and Dr. Albert, this note is written on his behalf Problem Qualifiers (1) CVA (cerebral vascular accident): Qualified Codes: I63.9 - Cerebral infarction, unspecified (2) HTN (hypertension): Qualified Codes: I10 - Essential (primary) hypertension (3) Breast cancer, left: Linda Land Nov 27, 2016 13:23
[2016-11-27] MEDS: BENZONATATE 100 MG CAP PO PRN ×3 (14:03→21:26)
--- NOTE | 2016-11-27 14:26 | EKG ---
Date Performed: 11/26/2016 Time Performed: 14:08:49 PTAGE: 86 years EKG: Sinus rhythm WITH OCCASIONAL SUPRAVENTRICULAR PREMATURE COMPLEXES NONSPECIFIC T-WAVE ABNORMALITY BORDERLINE ECG I NTERPRETATION BASED ON A DEFAULT AGE OF 40 YEARS PREVIOUS TRACING : 09/23/2016 04.02 DOCTOR: Ry Shipley Interpretating Date/Time 11/27/2016 14:25:44
--- NOTE | 2016-11-27 16:02 | ECHRPT ---
Indication: CVA/TIA CONCLUSIONS Normal left ventricular size and wall thickness. The left ventricular systolic function is normal wi th an estimated ejection fraction in the range of 60-65%. Left ventricular diastolic function parameters a re normal. Trace aortic valve regurgitation. Aortic valve replacement (bovine valve). There is mild tricuspid valve regurgitation. The estimated pulmonary arterial pressure is 34 mmHg. BP: 134 / 65 HR: 71 Rhythm: Sinus MEASUREMENTS (Male / Female) Normal Values Technical Quality:Good 2D ECHO LV Diastolic Diameter PLAX 4.6 cm 4.2 - 5.9 / 3.9 - 5.3 cm LV Systolic Diameter PLAX 3.3 cm IVS Diastolic Thickness 1.1 cm 0.6 - 1.0 / 0.6 - 0.9 cm LVPW Diastolic Thickness 1.1 cm 0.6 - 1.0 / 0.6 - 0.9 cm LV Relative Wall Thickness 0.5 LVOT Diameter 1.9 cm LA Systolic Diameter LX 3.5 cm 3.0 - 4.0 / 2.7 - 3.8 cm M-MODE Aortic Root Diameter MM 3.1 cm AV Cusp Separation MM 2.5 cm DOPPLER AV Peak Velocity 224.5 cm/s AV Peak Gradient 20.2 mmHg AV Mean Gradient 12.0 mmHg AV Velocity Time Integral 44.0 cm AI Peak Velocity 231.0 cm/s AI Peak Gradient 21.3 mmHg AI Pressure Half Time 522.0 ms LVOT Peak Velocity 65.6 cm/s LVOT Peak Gradient 1.7 mmHg AV Area Cont Eq pk 0.8 cm MR Peak Velocity 304.0 cm/s MR Peak Gradient 37.0 mmHg Mitral E Point Velocity 77.5 cm/s Mitral A Point Velocity 62.7 cm/s Mitral E to A Ratio 1.2 LV E' Lateral Velocity 11.5 cm/s Mitral E to LV E' Lateral Ratio 6.7 LV E' Septal Velocity 5.8 cm/s Mitral E to LV E' Septal Ratio 13.5 TR Peak Velocity 247.0 cm/s TR Peak Gradient 24.4 mmHg Right Atrial Pressure 10.0 mmHg Pulmonary Artery Systolic Pressu 34.4 mmHg Right Ventricular Systolic Press 34.4 mmHg PV Peak Velocity 92.3 cm/s PV Peak Gradient 3.4 mmHg FINDINGS LEFT VENTRICLE Normal left ventricular size and wall thickness. The left ventricular systolic function is normal wi th an estimated ejection fraction in the range of 60-65%. Left ventricular diastolic function parameters a re normal. RIGHT VENTRICLE Normal right ventricular size and systolic function. LEFT ATRIUM The left atrial size is normal. RIGHT ATRIUM The right atrial size is normal. ATRIAL SEPTUM Normal atrial septal thickness without atrial level shunting by limited color doppler interrogation. AORTA The aortic root and proximal ascending aorta are normal in size on limited imaging. MITRAL VALVE Structurally normal mitral valve. No mitral valve stenosis or regurgitation. AORTIC VALVE Trace aortic valve regurgitation. Aortic valve replacement: Bovine valve. TRICUSPID VALVE There is mild tricuspid valve regurgitation. The estimated pulmonary arterial pressure is 34.4 mmHg. PULMONARY VALVE No pulmonary valve regurgitation or stenosis. VESSELS The inferior vena cava is normal in size. PERICARDIUM No pericardial effusion. David Pollock MD, FACC (Electronically Signed) Final Date:27 November 2016 16:01
--- NOTE | 2016-11-27 17:59 | PD.CONS ---
[facility] Service Rehabilitation Medicine Consult Requested By ENRICO Marie Reason for Consult Comprehensive rehabilitation evaluation. Primary Care Physician Arnie Trevizo MD History of Present Illness Alannah Hill is an 86-year-old [id number] female admitted [facility] 11/26/16 with left-sided weakness. She was not considered a candidate for TPA. Brain MRI showed small subacute lacunar infarct in the right frontoparietal region and chronic microvascular changes. Had MRA negative. Carotid ultrasound showed no hemodynamically significant stenosis. Review of Systems Constitutional: COMPLAINS OF: Fatigue Eyes: DENIES: Diplopia Ears, nose, mouth, throat: COMPLAINS OF: Throat pain Cardiovascular: DENIES: Chest pain Gastrointestinal: COMPLAINS OF: Difficulty Swallowing Genitourinary: COMPLAINS OF: Urinary incontinence (patient has urostomy) Integumentary: DENIES: Rash Hematologic/lymphatic: COMPLAINS OF: Bruising Immunologic/allergic: DENIES: Urticaria Neurologic: COMPLAINS OF: Localized weakness, Speech Problems (difficulty swallowing), DENIES: Headache Psychiatric: DENIES: Confusion Past Family Social History Allergies: Coded Allergies: amlodipine (Unverified Allergy, Severe, 11/26/16) atorvastatin (Unverified Allergy, Severe, 11/26/16) codeine (Unverified Allergy, Severe, nausea , 11/26/16) dimenhydrinate (Unverified Allergy, Severe, Confusion, 11/26/16) simvastatin (Unverified Allergy, Severe, 11/26/16) zolpidem (Unverified Allergy, Severe, Confusion, 11/26/16) Past Medical History COPD Anxiety Arthritis Asthma CAD TIA Hyperlipidemia HTN Hypothyroid Bladder cancer Recurrent neuroendocrine carcinoma Left breast cancer Recurrent DVT, PE Past Surgical History Appendectomy AVR and single-vessel CABG in 2009 Cholecystectomy Cystectomy with ileal conduit Lymph node removal Bowel resection Current Medications Current Medications Medications (Trade) Dose Ordered Sig/Jasmina Route Start Time Stop Time Status Last Admin (NS Flush) 2 ml UNSCH PRN IVF 11/26/16 14:30 (NS Flush) 2 ml BID IV FLUSH 11/26/16 21:00 (NS Flush) 2 ml UNSCH PRN IV FLUSH 11/26/16 16:45 (Vasotec Inj) 1.25 mg Q4H PRN IV PUSH 11/26/16 16:45 (Aspirin Chew) 162 mg DAILY PO 11/27/16 09:00 11/27/16 09:28 (Arimidex) 1 mg DAILY PO 11/27/16 09:00 11/27/16 09:28 (Tenormin) 50 mg DAILY PO 11/27/16 09:00 11/27/16 09:28 (Tessalon) 100 mg TID PRN PO 11/26/16 16:45 11/27/16 16:45 (Symbicort 80-4.5 Mcg Inh) 2 puff Q12HR INH 11/26/16 21:00 11/27/16 09:00 (Lovenox Inj) 40 mg DAILY SQ 11/27/16 09:00 11/27/16 09:29 (Synthroid) 150 mcg DAILY PO 11/27/16 09:00 11/27/16 09:28 (Remeron) 45 mg HS PO 11/26/16 21:00 11/26/16 21:06 (Singulair) 10 mg HS PO 11/26/16 21:00 11/26/16 21:06 (Oramorph Sr) 15 mg Q6HR PO 11/26/16 18:00 11/27/16 11:59 (Msir) 15 mg Q4H PRN PO 11/26/16 16:45 (Pravachol) 10 mg HS PO 11/26/16 21:00 11/26/16 21:06 (Paxil) 30 mg DAILY PO 11/27/16 09:00 11/27/16 09:37 (Pill Splitter) 1 ea UNSCH PRN OTHER 11/26/16 17:30 (Duoneb Neb) 1 ampule QID NEB NEB 11/26/16 20:00 11/27/16 15:25 (SoluMEDROL INJ) 125 mg ONCE ONCE IV 11/27/16 18:00 11/27/16 18:01 Family History Mother/father: , coronary artery disease Brother: Stroke Social History Prior to admission patient was able to ambulate with a single-point cane. She lives in [place], [place]. Exam I&O / VS 11/27/16 11/27/16 11/28/16 15:00 23:00 07:00 Intake Total 960 ml Output Total 450 ml Balance 510 ml Intake Oral 960 ml Output Urine Total 450 ml # Voids 3 # Bowel Movements 1 Vital Signs Date Time Temp Pulse Resp B/P (MAP) Pulse Ox O2 Delivery O2 Flow Rate FiO2 11/27/16 16:00 97.6 76 20 142/65 (90) 96 11/27/16 15:25 94 21 11/27/16 12:10 98.5 69 20 130/63 (85) 95 11/27/16 08:20 95 11/27/16 08:00 98.2 77 20 126/61 (82) 99 11/27/16 05:54 98.3 71 134/65 (88) 97 11/27/16 01:05 98.2 84 20 103/69 (80) 92 11/26/16 23:06 98.7 77 20 123/60 (81) 97 11/26/16 22:06 11/26/16 21:12 98 21 11/26/16 19:15 73 18 146/59 (88) 96 Room Air General: No acute distress Respiratory: Lungs CTA, Non-labored respirations, BS equal Gastrointestinal: Positive Bowel Sounds, Non-Distended, Non-Tender Cardiovascular: Normal rate Skin: Other Musculoskeletal: Swelling (no rash noted in the distal lower extremities) Psychiatric: Cooperative, Appropriate mood & affect Orientation: oriented to Self, oriented to Place, oriented to Time, oriented to Situation Neurologic: Pupils (PERRLA), EOM (intact), Visual Padilla (intact), Facial Symmetry (left facial droop), Speech (dysarthric), Coordination (decreased in the left upper extremity) Motor: Right Upper Extremity, Left Upper Extremity, Right Lower Extremity (5/5) , Left Lower Extremity (3/5) Babinski: Positive (equivocal left) Clonus: Negative (equivocal left) Assessment and Plan Diagnosis: (1) CVA (cerebral vascular accident) ICD Codes: I63.9 - Cerebral infarction, unspecified Status: Acute Qualifiers: CVA mechanism: unspecified Qualified Codes: I63.9 - Cerebral infarction, unspecified Assessment 1. 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 Impaired mobility and ADLs due to above 3. COPD 4. Coronary artery disease 5. History of bladder cancer status post cystectomy 6. Neuroendocrine cancer 7. Arthritis Plan 1. Physical therapy as mobilizing and patient is now minimal assistance for transfers and minimal to moderate assistance to ambulate 20 feet with a rolling walker. Continue to progress anticipating that mobility should progress well 2. Occupational therapy is addressing ADLs and now minimal assistance for upper extremity dressing and maximal assistance for lower body dressing. Continue to maximize independence 3. Speech therapy is evaluated swallow and tolerating mechanical soft diet with thin liquids. Monitor for signs and symptoms of aspiration 4. Patient receiving Lovenox for DVT prophylaxis 5. Anticipate patient will need ongoing inpatient rehabilitation and case management is addressing 6. Will follow while hospitalized and at discharge Thank you for this consult Arcelia Garcia MD Nov 27, 2016 17:58
[2016-11-27] MEDS ORDERED: methylPREDNISolone SOD SUCC 125 MG/2 ML VIAL IV ONE (18:00)
[2016-11-27] MEDS: MONTELUKAST SODIUM 10 MG TAB PO SCH (21:26)
[2016-11-27] MEDS: MIRTAZAPINE 15 MG TAB PO SCH (21:26)
[2016-11-27] MEDS: PRAVASTATIN SOD 10 MG TAB PO SCH (21:26)
--- NOTE | 2016-11-27 21:59 | MB ---
cc: DEYANIRA WILDER MD, RUBY ANNE E. M.D. DATE OF CONSULTATION 11/27/2016 Oncology new patient consultative summary DATE OF [address] Wilder. CHIEF COMPLAINT Dr[address] Wilder requested consultation for Mrs. Hill regarding probable right MCA stroke while on low-molecular weight heparin. HISTORY OF PRESENT ILLNESS Mrs. Hill is an 86-year-old woman well-known patient with a complex history. She has a history of anxiety, arthritis, asthma, COPD, coronary artery disease, hypercholesterolemia, hypertension, and hypothyroidism. She is seen in oncology clinic for elevated Chromogranin A and metastatic carcinoid. Her course was complicated by second primary HER2/charisma over expressing stage I ER positive left breast cancer. She also has a history of a amaurosis fugax, TIA. She denies ever having a stroke. She has been on chronic anticoagulant therapy with new oral anticoagulants. Her course was complicated by hematuria while on Xarelto. We attribute the hematuria due to the mechanism action of Xarelto. It is localizes in the stomach and in the bladder. We attribute that as the etiology of the bleeding with Xarelto and therefore was switched to Coumadin. She was on Coumadin on a therapeutic dose when she developed bleeding again. She was seen in clinic. Her Coumadin was stopped. Despite stopping the Coumadin she had additional bleeding. Family reports that there was squirting blood from the ostomy site. The needed to put pressure. Eventually it stopped. The urine was still blood tinged and brown. She was pending evaluation with Dr. Paredes on 11/28/2016 when she developed acute event over the weekend. She was on low-molecular weight heparin at this point anticipating to stop her anticoagulant therapy for pending procedure by Dr. Paredes. She went to bed at 09:30 p.m. at night feeling well. She woke up at 08:00 a.m. with weakness, dysarthria, left-sided facial droop. She was brought into the emergency room but was not a candidate for thrombolytic therapy. She had acute left-sided weakness. It has improved at the time of the consultation. She denies any chest pain or shortness of breath. She describes having a headache on the current bed and pillow. She sometimes uses a soft collar in order to support her neck. The soft collar was brought in by her daughter. She denies any flushing or diarrhea. She is on no specific therapy for the carcinoid. She is on an aromatase inhibitor for her HER2/charisma over expressing ER positive breast cancer status post definitive surgery and intraoperative radiation. The rest of her review of systems is negative. PAST MEDICAL HISTORY As described above. 1. New small subacute white matter lacunae, right parietal region. 2. Hematuria on anticoagulant therapy. PAST SURGICAL HISTORY 1. Appendectomy. 2. Bovine valve. 3. Bowel resection. 4. Lymph node removal. 5. Tonsillectomy. 6. EGD and dilatation. 7. AVR and single vessel CABG 2009. 8. Cholecystectomy. 9. Cystectomy with ileal conduit. ALLERGIES AMBIEN, CODEINE, DRAMAMINE, KEFLEX. FAMILY HISTORY Mother is . Father is . No other family history of cancer. SOCIAL HISTORY Mrs. Hill is . Retired. She is a never smoker. No history of alcohol or illicit drug use. She has had five pregnancies and five births. ALLERGIES TO AMLODIPINE, ATORVASTATIN, CODEINE, DIMENHYDRONATE, SIMVASTATIN, ZOLPIDEM. CURRENT MEDICATIONS 1. Aspirin. 2. Arimidex. 3. Tenormin. 4. Lovenox. 5. Synthroid. 6. Paxil. 7. Symbicort. 8. Remeron. 9. Singulair. 10. Duoneb. 11. Oramorph. 12. Tessalon Perles. 13. MSIR p.r.n. PHYSICAL EXAMINATION VITAL SIGNS: Temperature 97.6, heart rate 76, respiratory rate 20, blood pressure 142/65, saturation 96%. GENERAL: Mrs. Hill is an 86-year-old woman who looks her stated age. She is awake, alert, oriented with some generalized pallor. She has some difficulty word finding. She seems to have good strength in her upper or lower extremities. She has some right-sided facial weakness. Her oropharynx is clear. NECK: Supple. LUNGS: Are clear to auscultation. CARDIOVASCULAR: Exam reveals a normal rate, rhythm. ABDOMEN: Benign. EXTREMITIES: Lower extremity with no edema. LABORATORY DATA CBC is normal. Chemistry is significant for a BUN of 42, creatinine 1.1. Liver functions are mildly elevated. ASSESSMENT/PLAN Mrs. Hill is an 86-year-old woman with multiple medical problems. She has had a history of TIA and amaurosis fugax but never a stroke. She presents with weakness consistent with subacute white matter lacunae in the high frontal parietal region. Neurology been consulted and concluded that she probably had a right MCA stroke. She was on anticoagulant therapy with low-molecular weight heparin. Despite this her arterial event has occurred. A lengthy discussion with Mrs. Hill and her family present at the consultation. Our plan was indeed to put her back on Coumadin. It was held because of hematuria that occurred a week ago. It was gross hematuria with blood squirting from the ostomy site. Her Coumadin was held pending consultation with urology and possible work up. She is pending an appointment with Dr. Paredes tomorrow. For this reason Dr. Paredes is consulted during her hospitalization. We will need to place her on anticoagulant therapy but need to do so safely and eliminate etiology of the bleeding from the ostomy site. She has no acute bleeding at present. Her hemoglobin is stable. Her other complaints related to coughing and shortness of breath from her COPD. She was cared for by Dr. Calabrese previously for COPD exacerbation. Family has been requesting for Dr. Calabrese. She is receiving Solu-Medrol. It helped transiently. We will consult Dr. Calabrese for continued management of her COPD. In the meantime she continues on aspirin 625 mg daily. She has a low molecular weight heparin to prevent deep vein thromboses. So far she has had no bleeding event. I anticipate resuming her anticoagulant therapy with Coumadin pending resolution of the hematuria. She continues on aromatase inhibitor for the ER positive breast cancer. MD SHOBHA Yi/DOROTHY /7:10 PM /9:26 PM CHAGO
[2016-11-28] VITALS (9 sets, daily range): BP systolic 107–147; BP diastolic 54–66; PULSE 62–98; RESP 16–20; TEMP 97.3–98.8; O2SAT 94–99
[2016-11-28] MEDS: MORPHINE SULFATE 15 MG CONTROLLED RELEASE TAB PO SCH ×4 (00:52→18:17)
[2016-11-28] MEDS: RESP: ALBUTEROL 2.5 MG/IPRATROPIUM 0.5 MG NEB (SCH) NEB ×4 (07:46→19:31)
[2016-11-28] MEDS: ATENOLOL 50 MG TAB PO SCH (08:50)
[2016-11-28] MEDS: ASPIRIN 81 MG CHEW TAB PO SCH (08:50)
[2016-11-28] MEDS: ANASTROZOLE 1 MG TAB PO SCH (08:50)
[2016-11-28] MEDS: PARoxetine HCL 20 MG TAB PO SCH (08:51)
[2016-11-28] MEDS: LEVOTHYROXINE SODIUM 150 MCG TAB PO SCH (08:51)
[2016-11-28] MEDS: ENOXAPARIN SODIUM 40 MG/0.4 ML SYRINGE SQ SCH ×2 (08:51→21:00)
[2016-11-28 09:07] LABS: HEMATOCRIT 41.6 % (35.0-46.0); MEAN CELL VOLUME 95.1 FL (80.0-100.0); MEAN CORPUSCULAR HEMOGLOBIN 30.8 PG (27.0-34.0); MEAN CORPUSCULAR HGB CONC 32.4 % (32.0-36.0); PLATELET COUNT 147 TH/MM3 (150-450); RED BLOOD COUNT 4.38 MIL/MM3 (4.00-5.30); RED CELL DISTRIBUTION WIDTH 15.2 % (11.6-17.2); WHITE BLOOD COUNT 7.7 TH/MM3 (4.0-11.0)
--- NOTE | 2016-11-28 09:38 | HHI.PR ---
Review/Management Diagnosis/Plan: (1) Acute right MCA stroke ICD Codes: I63.511 - Cerebral infarction due to unspecified occlusion or stenosis of right middle cerebral artery Status: Acute Plan: probable rt mca stroke off full anticoagulation hx of cancer; ? 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 (2) Neuroendocrine carcinoma metastatic to multiple sites ICD Codes: C7A.8 - Other malignant neuroendocrine tumors; C7B.8 - Other secondary neuroendocrine tumors Status: Chronic Plan: onc following (3) HTN (hypertension) ICD Codes: I10 - Essential (primary) hypertension Status: Chronic Plan: <160/100 (4) Breast cancer, left ICD Codes: C50.912 - Malignant neoplasm of unspecified site of left female breast Status: Chronic Plan: onc management Subjective Subjective Comments No acute events reported No headache No chest pain No dyspnea daughter at bedside Active Medications Current Medications Medications (Trade) Dose Ordered Sig/Jasmina Route Start Time Stop Time Status Last Admin (NS Flush) 2 ml UNSCH PRN IVF 11/26/16 14:30 (NS Flush) 2 ml BID IV FLUSH 11/26/16 21:00 11/27/16 21:00 (NS Flush) 2 ml UNSCH PRN IV FLUSH 11/26/16 16:45 (Vasotec Inj) 1.25 mg Q4H PRN IV PUSH 11/26/16 16:45 (Aspirin Chew) 162 mg DAILY PO 11/27/16 09:00 11/28/16 08:50 (Arimidex) 1 mg DAILY PO 11/27/16 09:00 11/28/16 08:50 (Tenormin) 50 mg DAILY PO 11/27/16 09:00 11/28/16 08:50 (Tessalon) 100 mg TID PRN PO 11/26/16 16:45 11/27/16 21:26 (Symbicort 80-4.5 Mcg Inh) 2 puff Q12HR INH 11/26/16 21:00 11/27/16 21:00 (Lovenox Inj) 40 mg DAILY SQ 11/27/16 09:00 11/28/16 08:51 (Synthroid) 150 mcg DAILY PO 11/27/16 09:00 11/28/16 08:51 (Remeron) 45 mg HS PO 11/26/16 21:00 11/27/16 21:26 (Singulair) 10 mg HS PO 11/26/16 21:00 11/27/16 21:26 (Oramorph Sr) 15 mg Q6HR PO 11/26/16 18:00 11/28/16 05:50 (Msir) 15 mg Q4H PRN PO 11/26/16 16:45 (Pravachol) 10 mg HS PO 11/26/16 21:00 11/27/16 21:26 (Paxil) 30 mg DAILY PO 11/27/16 09:00 11/28/16 08:51 (Pill Splitter) 1 ea UNSCH PRN OTHER 11/26/16 17:30 (Duoneb Neb) 1 ampule QID NEB NEB 11/26/16 20:00 11/28/16 07:46 Allergies Allergies Coded Allergies amlodipine (Unverified Allergy, Severe, 11/26/16) atorvastatin (Unverified Allergy, Severe, 11/26/16) codeine (Unverified Allergy, Severe, nausea , 11/26/16) dimenhydrinate (Unverified Allergy, Severe, Confusion, 11/26/16) simvastatin (Unverified Allergy, Severe, 11/26/16) zolpidem (Unverified Allergy, Severe, Confusion, 11/26/16) Review of Systems All other ROS: ROS reviewed as documented in chart Exam I&O / VS Vital Signs Date Time Temp Pulse Resp B/P (MAP) Pulse Ox O2 Delivery O2 Flow Rate FiO2 11/28/16 08:27 97.3 66 20 131/66 (87) 97 11/28/16 07:49 98 11/28/16 05:39 97.8 62 18 147/63 (91) 96 11/28/16 01:57 97.7 70 20 146/65 (92) 99 11/27/16 20:28 98.5 72 20 152/64 (93) 100 11/27/16 16:00 97.6 76 20 142/65 (90) 96 11/27/16 15:25 94 21 11/27/16 12:10 98.5 69 20 130/63 (85) 95 General: Alert and Oriented, No acute distress Eye: EOMI Respiratory: Lungs CTA, Non-labored respirations, BS equal Cardiology: Normal rate Musculoskeletal: Swelling Neurologic: Alert, Oriented, Normal sensory Psychiatric: Cooperative Exam Comments ox 3, follows, articulate, eating breakfast in bed, eomi, vff, left hemiparesis 4/5 with dystaxia Objective Micro and Labs Laboratory Tests Test 11/28/16 08:19 White Blood Count 7.7 Red Blood Count 4.38 Hemoglobin 13.5 Hematocrit 41.6 Mean Corpuscular Volume 95.1 Mean Corpuscular Hemoglobin 30.8 Mean Corpuscular Hemoglobin Concent 32.4 Red Cell Distribution Width 15.2 Platelet Count 147 Mean Platelet Volume 8.6 Problem Qualifiers (1) HTN (hypertension): Qualified Codes: I10 - Essential (primary) hypertension (2) Breast cancer, left: Santos Wilder MD Nov 28, 2016 09:37
[2016-11-28 09:44] LABS: BICARBONATE 17.7 MEQ/L (21.0-32.0); POTASSIUM 5.8 MEQ/L (3.5-5.1)
--- NOTE | 2016-11-28 09:52 | PD.ONC.PN ---
Subjective Subjective Remarks Afebrile overnight. States she has not had blood in her urine for several days. Reports improvement in strength, but still some persistent left sided weakness. Objective Data Date Time Temp Pulse Resp B/P (MAP) Pulse Ox O2 Delivery O2 Flow Rate FiO2 11/28/16 08:27 97.3 66 20 131/66 (87) 97 11/28/16 07:49 98 11/28/16 05:39 97.8 62 18 147/63 (91) 96 11/28/16 01:57 97.7 70 20 146/65 (92) 99 11/27/16 20:28 98.5 72 20 152/64 (93) 100 11/27/16 16:00 97.6 76 20 142/65 (90) 96 11/27/16 15:25 94 21 11/27/16 12:10 98.5 69 20 130/63 (85) 95 11/28/16 11/28/16 11/28/16 07:00 15:00 23:00 Output Total 330 ml Balance -330 ml Result Diagram: 11/28/16 0819 11/28/16 0819 Laboratory Results Laboratory Tests Test 11/28/16 08:19 White Blood Count 7.7 TH/MM3 Red Blood Count 4.38 MIL/MM3 Hemoglobin 13.5 GM/DL Hematocrit 41.6 % Mean Corpuscular Volume 95.1 FL Mean Corpuscular Hemoglobin 30.8 PG Mean Corpuscular Hemoglobin Concent 32.4 % Red Cell Distribution Width 15.2 % Platelet Count 147 TH/MM3 Mean Platelet Volume 8.6 FL Blood Urea Nitrogen 38 MG/DL Creatinine 1.18 MG/DL Random Glucose 139 MG/DL Calcium Level 8.7 MG/DL Sodium Level 136 MEQ/L Potassium Level 5.8 MEQ/L Chloride Level 109 MEQ/L Carbon Dioxide Level 17.7 MEQ/L Anion Gap 9 MEQ/L Estimat Glomerular Filtration Rate 44 ML/MIN Administered Medications Medications (Trade) Dose Ordered Sig/Jasmina Route PRN Reason Start Time Stop Time Status Last Admin Dose Admin IV Flush (NS Flush) 2 ml BID IV FLUSH 11/26/16 21:00 11/27/16 21:00 Aspirin (Aspirin Chew) 162 mg DAILY PO 11/27/16 09:00 11/28/16 08:50 Anastrozole (Arimidex) 1 mg DAILY PO 11/27/16 09:00 11/28/16 08:50 Atenolol (Tenormin) 50 mg DAILY PO 11/27/16 09:00 11/28/16 08:50 Benzonatate (Tessalon) 100 mg TID PRN PO COUGH 11/26/16 16:45 11/27/16 21:26 Budesonide/ Formoterol Fumarate (Symbicort 80-4.5 Mcg Inh) 2 puff Q12HR INH 11/26/16 21:00 11/27/16 21:00 Enoxaparin Sodium (Lovenox Inj) 40 mg DAILY SQ 11/27/16 09:00 11/28/16 08:51 Levothyroxine Sodium (Synthroid) 150 mcg DAILY PO 11/27/16 09:00 11/28/16 08:51 Mirtazapine (Remeron) 45 mg HS PO 11/26/16 21:00 11/27/16 21:26 Montelukast Sodium (Singulair) 10 mg HS PO 11/26/16 21:00 11/27/16 21:26 Morphine Sulfate (Oramorph Sr) 15 mg Q6HR PO 11/26/16 18:00 11/28/16 05:50 Pravastatin Sodium (Pravachol) 10 mg HS PO 11/26/16 21:00 11/27/16 21:26 Paroxetine HCl (Paxil) 30 mg DAILY PO 11/27/16 09:00 11/28/16 08:51 Albuterol/ Ipratropium (Duoneb Neb) 1 ampule QID NEB NEB 11/26/16 20:00 11/28/16 07:46 Objective Remarks GENERAL: Elderly female upright in chair next to bed, anxious, but otherwise in nad. SKIN: Warm and dry. HEAD: Normocephalic. EYES: No injection or drainage. NECK: Supple, trachea midline. CARDIOVASCULAR: +S1/S2 RESPIRATORY: diminished at bases, scattered rhonchi. GASTROINTESTINAL: Abdomen soft, non-tender, nondistended. EXTREMITIES: No cyanosis NEUROLOGICAL: awake and alert, normal speech. able to move all extremities. some left upper extremity weakness noted. Assessment/Plan Problem List: (1) CVA (cerebral vascular accident) ICD Codes: I63.9 - Cerebral infarction, unspecified Status: Acute Plan: on ASA 162mg daily --on LMWH --anticipate resuming coumadin with resolution of hematuria History: --went to bed at 09:30 p.m. at night feeling well. woke up at 08:00 a.m. with weakness, dysarthria, left-sided facial droop. --brought into the emergency room but was not a candidate for thrombolytic therapy. h --had acute left-sided weakness improved at the time of the consultation. -- history of TIA and amaurosis fugax but never a stroke. --presents with weakness consistent with subacute white matter lacunae in the high frontal parietal region. --Neurology been consulted and concluded that she probably had a right MCA stroke. (2) Breast cancer, left ICD Codes: C50.912 - Malignant neoplasm of unspecified site of left female breast Status: Chronic Plan: --on an aromatase inhibitor --status post definitive surgery and intraoperative radiation. ++HER2/charisma over expressing stage I ER positive left breast cancer. (3) Metastatic carcinoma ICD Codes: C79.9 - Secondary malignant neoplasm of unspecified site Plan: --metastatic carcinoid on no specific therapy (4) Hematuria ICD Codes: R31.9 - Hematuria, unspecified Status: Chronic Assessment 86y/o female with right MCA stroke while on low-molecular weight heparin. history of anxiety, arthritis, asthma, COPD, coronary artery disease, hypercholesterolemia, hypertension, and hypothyroidism. h/o Bovine valve. Bowel resection.Lymph node removal.Tonsillectomy.EGD and dilatation.AVR and single vessel CABG 2009.Cholecystectomy.Cystectomy with ileal conduit. Plan 1. await urology consult 2. await pulmonology consult 3. continue ASA and LMWH Attending Statement The exam, history, and the medical decision-making described in the above note were completed with the assistance of the mid-level provider. I reviewed and agree with the findings presented. I attest that I had a [id number] encounter with the patient on the same day, and personally performed and documented my assessment and findings in the medical record. Pt seen and examined. Looking forward to going to rehab. Feels L arm is better, L leg still weak. No bleeding. Discussed with Dr. Lopez, will start anticoagulant therapy with Coumadin, bridge with LMWH. We will monitor for bleeding. Plan to use silver nitrate local treatment if acute bleeder occur at ostomy site. Defer to urology, continue work up for hematuria. We will monitor for bleeding. Problem Qualifiers (1) CVA (cerebral vascular accident): Qualified Codes: I63.9 - Cerebral infarction, unspecified (2) Breast cancer, left: Brandie Mathis Nov 28, 2016 09:52 Donna Meza MD Nov 28, 2016 17:58
[2016-11-28] MEDS ORDERED: MAGNESIUM CITRATE SOLN 300 ML BTL PO ONE ×2 (12:00→18:00)
--- NOTE | 2016-11-28 12:18 | MB ---
cc: JUAN CARLOSYANNA DENG DATE OF CONSULTATION: 11/28/2016 HISTORY OF PRESENT ILLNESS Ms. Hill is a pleasant 86-year-old female who presented with left-sided weakness. She also has a history of hematuria and had a cystectomy with ileoconduit back in 1984 at [facility]. According to the daughter, she noted some hematuria from the stoma site approximately 1 month ago and the bleeding was pulsatile. Pressure was applied and the bleeding then essentially resolved. She has been on anticoagulation therapy for a DVT in the past. She also has a history of breast cancer and carcinoid. Recently she developed left-sided weakness and also noted some hematuria at the time. The hematuria has now since cleared. She did have a CT scan of the abdomen and pelvis back in September 23, 2016 which did show normal upper tracts. PAST MEDICAL HISTORY Her other medical problems include: 1. Coronary artery disease. 2. COPD. 3. Asthma. 4. Arthritis. 5. Anxiety. 6. Bladder cancer. 7. Hypercholesterolemia. 8. Hypertension. 9. Hypothyroidism. PAST SURGICAL HISTORY 1. Appendectomy. 2. Aortic valve replacement and CABG in 2009. 3. Cholecystectomy. 4. Cystectomy with ileoconduit. 5. Tonsillectomy. 6. Lymph node dissection. 7. Bowel resection. ALLERGIES AMLODIPINE, CODEINE, DRAMAMINE, KEFLEX. FAMILY HISTORY Denies any malignancies. SOCIAL HISTORY Denies a history of smoking, drinking or using illicit drugs. REVIEW OF SYSTEMS Denies chest pain, shortness of breath at present, denies abdominal pain, hematuria from the conduit has resolved. Denies skin lesions, bleeding disorders, other than she is on anticoagulation therapy. The remaining review of systems were reviewed and are negative. PHYSICAL EXAMINATION VITAL SIGNS: Her present vitals today, temperature is 97.3, heart rate 66, respiratory rate 21, 131/66 is her blood pressure, 97% on room air. GENERAL: She is well-developed, well-nourished 86-year-old female in no acute distress. HEENT: Normocephalic, atraumatic. Pupils equal, round, reactive to light. Extraocular movements intact. NECK: Supple. HEART: Regular rate and rhythm. LUNGS: Clear. ABDOMEN: Soft, nontender, nondistended. Mucosa at the conduit site is pink and viable, no evidence of any bleeding. The urine is presently clear. Normal female external genitalia is noted. EXTREMITIES: Show no cyanosis, clubbing or edema. LABORATORY FINDINGS White count of 7.7, hemoglobin 13.5, hematocrit 41.6, platelet 147, sodium 136, potassium 5.8, chloride 109, CO2 17.7, BUN of 38, creatinine 1.1, glucose of 139. Coagulation studies PT 10.5, INR 1.0, PTT is 25.9. IMAGING STUDIES CT scan of the abdomen and pelvis from 09/23/2016 showed normal upper tracts. ASSESSMENT This is a pleasant 86-year-old female with history of bladder cancer status post cystectomy with ileoconduit performed back in 1984, bleeding noted from the ostomy site which has since resolved. Will continue to follow and monitor. Recommend restarting Coumadin for now. If bleeding returns from the site we can possibly use silver nitrate sticks to stop the bleeding in the future, if the bleeding site is identified. Will obtain an IVP and send urine cytology today and the patient will follow up with Dr. Paredes in the office for further evaluation if bleeding returns. Thank you for the consult and allowing me to participate in the care of this patient. Yanna CLEMENT /11:30 AM /11:55 AM
--- NOTE | 2016-11-28 13:05 | HHI.PR ---
Subjective Remarks sitting up in chair inc. cough, wheezing since yesterday no neuro changes no cp mildly sob no fever eating okay, at times eats fast, hx "choking" on food. Had recent dilatation. daughter at d Objective Objective Results - Vital Signs Date Time Temp Pulse Resp B/P (MAP) Pulse Ox O2 Delivery O2 Flow Rate FiO2 11/28/16 12:25 98.4 77 20 138/62 (87) 96 11/28/16 08:27 97.3 66 20 131/66 (87) 97 11/28/16 07:49 98 11/28/16 05:39 97.8 62 18 147/63 (91) 96 11/28/16 01:57 97.7 70 20 146/65 (92) 99 11/27/16 20:28 98.5 72 20 152/64 (93) 100 11/27/16 16:00 97.6 76 20 142/65 (90) 96 11/27/16 15:25 94 21 I/O 11/27/16 11/27/16 11/27/16 11/28/16 11/28/16 11/28/16 07:00 15:00 23:00 07:00 15:00 23:00 Intake Total 240 ml 960 ml Output Total 200 ml 450 ml 330 ml Balance 40 ml 510 ml -330 ml Intake Oral 240 ml 960 ml Output Urine Total 200 ml 450 ml 330 ml # Voids 3 # Bowel Movements 1 Result Diagram: 11/28/1619 11/28/16 0819 Other Results Laboratory Tests Test 11/28/16 08:19 White Blood Count 7.7 Red Blood Count 4.38 Hemoglobin 13.5 Hematocrit 41.6 Mean Corpuscular Volume 95.1 Mean Corpuscular Hemoglobin 30.8 Mean Corpuscular Hemoglobin Concent 32.4 Red Cell Distribution Width 15.2 Platelet Count 147 Mean Platelet Volume 8.6 Blood Urea Nitrogen 38 Creatinine 1.18 Random Glucose 139 Calcium Level 8.7 Sodium Level 136 Potassium Level 5.8 Chloride Level 109 Carbon Dioxide Level 17.7 Anion Gap 9 Estimat Glomerular Filtration Rate 44 ROS General: No: Fatigue, Weakness HEENT: No: Sore Throat, Dysphagia Cardiac: No: Chest Pain, Edema, Palpitations Pulmonary: Cough, SOB, Wheezing GI: No: Abdominal Pain, BM, Diarrhea, N/V /MALL [employer] CARETAKER: No: Dysuria, Urgency Neuro/MS: Other (left sided weakness ) Psych: No: Anxiety, Depression Skin: No: Itching, Rash Physical Exam Physical Exam GENERAL: This is a well-nourished, well-developed patient, in no apparent distress. SKIN: No rashes, ecchymoses or lesions. Cool and dry. HEAD: Atraumatic. Normocephalic. No temporal or scalp tenderness. EYES: Pupils equal round and reactive. Extraocular motions intact. No scleral icterus. No injection or drainage. ENT: Nose without bleeding, purulent drainage or septal hematoma. Throat without erythema, tonsillar hypertrophy or exudate. Uvula midline. Airway patent. NECK: Trachea midline. No JVD or lymphadenopathy. Supple, nontender, no meningeal signs. CARDIOVASCULAR: Regular rate and rhythm with 2/6 murmurs, no gallops, no rubs. RESPIRATORY: exp. wheezing GASTROINTESTINAL: Abdomen soft, non-tender, nondistended. No hepato-splenomegaly , or palpable masses. No guarding. MUSCULOSKELETAL: Extremities without clubbing, cyanosis, or edema. No joint tenderness, effusion, or edema noted. No calf tenderness. Negative Homans sign bilaterally. NEUROLOGICAL: Awake, alert oriented 3. Speech is clear. Left nasolabial fold droop. Noted with left upper extremity distal weakness, ataxia with finger-to- nose. Left upper extremity strength is 3 out of 5. Left lower extremity weakness, 3 out of 5. Urinary Catheter: No Vascular Central Line Catheter: No A/P Diagnosis: (1) CVA (cerebral vascular accident) ICD Codes: I63.9 - Cerebral infarction, unspecified Status: Acute (2) Acute left-sided weakness ICD Codes: M62.89 - Other specified disorders of muscle Status: Acute (3) Hx pulmonary embolism ICD Codes: Z86.711 - Personal history of pulmonary embolism Status: Chronic (4) Hx of deep venous thrombosis ICD Codes: Z86.718 - Personal history of other venous thrombosis and embolism Status: Chronic (5) COPD with exacerbation ICD Codes: J44.1 - Chronic obstructive pulmonary disease with (acute) exacerbation Status: Chronic (6) Hx of bladder cancer ICD Codes: Z85.51 - Personal history of malignant neoplasm of bladder Status: Chronic (7) HTN (hypertension) ICD Codes: I10 - Essential (primary) hypertension Status: Chronic (8) Breast cancer, left ICD Codes: C50.912 - Malignant neoplasm of unspecified site of left female breast Status: Chronic (9) Hematuria ICD Codes: R31.9 - Hematuria, unspecified Status: Chronic (10) Murmur ICD Codes: R01.1 - Cardiac murmur, unspecified Status: Chronic (11) Hx of thrombocytopenia ICD Codes: Z86.2 - Personal history of diseases of the blood and blood-forming organs and certain disorders involving the immune mechanism Status: Chronic (12) Elevated LFTs ICD Codes: R79.89 - Other specified abnormal findings of blood chemistry Status: Chronic (13) Metabolic acidosis ICD Codes: E87.2 - Acidosis Status: Acute (14) Hyperkalemia ICD Codes: E87.5 - Hyperkalemia Status: Acute Assessment and Plan 86-year-old elderly white female with multiple comorbidities, presented with left-sided weakness. History of thrombocytopenia, prior TIA, chronic anticoagulation for history of DVT and PE. History of bladder cancer, now with left breast cancer. Acute left-sided weakness-Right MCA stroke -Continue with neuro checks -appreciate neuro input, recommends heme evaluation for recommendations on OAC. Poss coumadin, safer choice. ? hypercoag status -Continue with aspirin 162 mg by mouth daily and Lovenox for now -Brain MRI, + right MCA stroke -CUS-minimal plaque. Had recent echocardiogram, September 2016, EF 65-70%. Mild to moderate prostatic regurgitation of aortic valve breast the services, left atrial size moderately dilated. -EEG okay, mild encephalopathy -hemoglobin A1c 6.9 -Continue statins, lipid profile noted -control BP, stable -PT, OT, speech therapy -stable, needs rehab. BP well controlled -will need Coumadin, per urology ok to start Renal insufficiency, likely dehydrated Hyperkalemia -Remains hyperkalemic, K level trending. 5.8 today. Repeat now. Meds reviewed , etiology unclear. -noted with acidosis -renal function ok, Creat unchanged, 1.18. -start NS + bicarb at 42/hr -improved renal function -BMP, cortisol level in am Left breast cancer, underwent recent biopsy and lumpectomy with intraoperative radiation. -Stable continue to monitor -appreciate heme input, consulted pulm and urology Chronic anticoagulation for history of DVT and PE, currently on Lovenox. Was recently on Coumadin, this was stopped due to hematuria. -Continue with Lovenox for now -heme input appreciated, plans to use Coumadin after urology evaluates Recurrent hematuria, history of bladder cancer, underwent cystectomy Recurrent UTI -Continue to monitor for hematuria -Monitor H&H, stable -appreciate urology input, recommends IVP, urine cytology, Ok for Coumadin. can f/u Dr. Paredes as OP if any rebleeding, recommends poss silver nitrate sticks to stop bleeding in the future if the bleeding site is identified. Elevated liver enzymes, underwent recent GI workup -Continue to monitor liver enzymes, unchanged. Recent admission for COPD with bronchitis, has scattered fine rhonchi and mild expiratory wheezing Mild exacerbation now -continue DuoNeb's 4 times a day -Monitor sats -continue Symbicort -Continue Tessalon as needed for cough -Solumedrol 125 mg IV x 1 given yesterday -Pulm consulted, pending History of DVT and PE on Lovenox -Continue with Lovenox Hypertension, well-controlled -Continue home medications Physical debility, has had recent hospitalization with multiple complications -Physical therapy for evaluation Continue with Lovenox for DVT prophylaxis continue with PT, speech therapy and occupational therapy continue mech soft diet, instructed to eat slow, needs to sit up Repeat labs in am going to CIR when cleared D/W RN D/W Dr. Albert D/W pt and daughter D/W CIR CM This patient was seen by myself and Dr. Albert, this note is written on his behalf Problem Qualifiers (1) CVA (cerebral vascular accident): Qualified Codes: I63.9 - Cerebral infarction, unspecified (2) HTN (hypertension): Qualified Codes: I10 - Essential (primary) hypertension (3) Breast cancer, left: Linda Land Nov 28, 2016 13:05
[2016-11-28] MEDS: SODIUM BICARBONATE 8.4% INJ 50 MEQ in SODIUM CHLOR 0.9% 1000 ML INJ 1,000 ML IV SCH (14:00)
[2016-11-28 15:51] LABS: BICARBONATE 25.3 MEQ/L (21.0-32.0); POTASSIUM 5.9 MEQ/L (3.5-5.1)
[2016-11-28] MEDS ORDERED: SODIUM POLYSTYRENE SULFONATE SUSP 15 GM/60 ML CUP PO ONE (16:30)
--- NOTE | 2016-11-28 17:08 | MB ---
cc: OLIVE OLVERA DATE OF CONSULTATION 11/28/[address] Meza REASON FOR CONSULTATION Respiratory insufficiency HISTORY OF PRESENT ILLNESS Ms. Hill is a pleasant 86-year-old female who is known to me from the office. She has history of chronic obstructive pulmonary disease using bronchodilator treatment. She has a history of CA of the bladder status post cystectomy and ileal conduit. She also has a history of amaurosis fugax. She was taking Coumadin. She started have bleeding from the iliac conduit site and the coumadin was held back. The patient was admitted to the hospital with a right MCA stroke and left-sided weakness. Her weakness is improving. She started moving the left extremity. She denies any cough or sputum production. No fevers, chills, no night sweats. No chest pain. PAST MEDICAL HISTORY 1. History of COPD. 2. Right parietal region lacunar infarct 3. Hematuria 4. Appendectomy 5. History of CA of the breast 6. History of CA of the bladder status post cystectomy with ileal conduit. 7. History of bowel resection. Seven inches of bowel was removed 8. History of dysphagia. She had EGD and dilation done 9. History of aortic valve replacement, coronary artery bypass graft times one. 10. Cholecystectomy. MEDICATIONS Currently taking 1. Dulcolax 2. Sodium bicarbonate. 3. Aspirin 162 mg a day 4. Ari8 1 mg a day. 5. Tenormin 50 mg a day. 6. Lovenox 40 mg a day. 7. Synthroid 150 mcg a day 8. Paxil 30 mg a day. 9. Symbicort 180/4.52 twice a day 10. Mirtazapine 45 mg a day. 11. Pravastatin 10 mg a day 12. Nebulizer treatment. 13. Morphine for pain. 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 No history of smoking. FAMILY HISTORY Has family history She lives with her daughter. REVIEW OF SYSTEMS Normally she is up around and active. Weight is stable. No history of any seizure or epilepsy. PHYSICAL EXAMINATION GENERAL: A pleasant elderly female not in acute distress. VITAL SIGNS: Blood pressure 138/62, heart rate 77, respirations 20, temperature 98.4 HEENT: Pupils are equal and reactive to light. Oral mucosa, nasal mucosa normal. NECK: Supple. CHEST: Equal bilaterally. No rhonchi. CARDIOVASCULAR: S1, S2 normal ABDOMEN: Soft, nondistended. Bowel sounds are present EXTREMITIES: No edema. JUMP[employer]STING [employer] B[employer]ER: Alert and oriented times three. She has left-sided weakness. LABORATORY DATA WBC count 7.7, hemoglobin 13.5, hematocrit 41.6, MCV 95, platelet count 147. Sodium 138, potassium 5.9, chloride 106, CO2 25, BUN 42, creatinine 1.17. IMPRESSION 1. COPD. 2. CVA with left-sided weakness 3. History of neurosis fugax. 4. History of CA of the bladder status post cystectomy and ileal conduit. 5. History of coronary disease status post coronary artery bypass graft and AVR 6. History of CA of the breast 7. History of cholecystectomy. PLAN I discussed with the patient. The patient is being anticoagulated. Dr. Meza is following. She is stable on room air. Give her aerosol treatment. Symbicort twice a day. Monitor her electrolytes. Further treatment will depend on the course in the hospital. Thank you, Dr. Meza, for this consultation. MD MARISEL Nascimento/ /4:01 PM /4:33 PM
[2016-11-28] MEDS: BISACODYL EC 5 MG TABEC PO SCH ×2 (18:17→21:00)
[2016-11-28] MEDS: WARFARIN SOD 2.5 MG TAB PO SCH (20:26)
[2016-11-28] MEDS: SODIUM CHLORIDE 0.9% FLUSH 5 ML FLUSH IV FLUSH SCH (21:00)
[2016-11-28] MEDS: BUDESONIDE-FORMOTEROL 80/4.5 MCG INHALER INH SCH (21:00)
[2016-11-28] MEDS: MONTELUKAST SODIUM 10 MG TAB PO SCH (21:28)
[2016-11-28] MEDS: PRAVASTATIN SOD 10 MG TAB PO SCH (21:28)
[2016-11-28] MEDS: MIRTAZAPINE 15 MG TAB PO SCH (21:29)
[2016-11-28] MEDS: BENZONATATE 100 MG CAP PO PRN (21:44)
[2016-11-29] MEDS: MORPHINE SULFATE 15 MG CONTROLLED RELEASE TAB PO SCH ×3 (00:40→12:38)
[2016-11-29 00:58] VITALS: BP 175/72; PULSE 63; RESP 20; TEMP 98.7; O2SAT 99
[2016-11-29 06:00] VITALS: BP 151/100; PULSE 70; RESP 18; TEMP 97.2; O2SAT 93
[2016-11-29] MEDS: RESP: ALBUTEROL 2.5 MG/IPRATROPIUM 0.5 MG NEB (SCH) NEB (08:00)
[2016-11-29 08:37] LABS: ALKALINE PHOSPHATASE 397 U/L (45-117); ALT (GPT) 69 U/L (10-53); ANION GAP 7 MEQ/L (5-15); AST (GOT) 81 U/L (15-37); BICARBONATE 24.6 MEQ/L (21.0-32.0); BLOOD UREA NITROGEN 35 MG/DL (7-18); CHLORIDE 110 MEQ/L (98-107); GLOMERULAR FILTRATION RATE 60 ML/MIN (>89); POTASSIUM 4.6 MEQ/L (3.5-5.1); SODIUM (NA) 142 MEQ/L (136-145); TOTAL BILIRUBIN ADULT 0.4 MG/DL (0.2-1.0)
[2016-11-29 08:53] VITALS: BP 152/106; PULSE 64; RESP 20; TEMP 97.9; O2SAT 99
--- NOTE | 2016-11-29 08:58 | HHI.PR ---
Subjective Patient symptoms today Pt seen and examined. Urine clear. No more bleeding Objective Vital Signs Vital Signs Date Time Temp Pulse Resp B/P (MAP) Pulse Ox O2 Delivery O2 Flow Rate FiO2 11/29/16 08:53 97.9 64 20 152/106 (121) 99 11/29/16 06:00 97.2 70 18 151/100 (117) 93 11/29/16 00:58 98.7 63 20 175/72 (106) 99 11/28/16 20:16 98.8 98 16 141/64 (89) 99 11/28/16 19:33 94 21 11/28/16 17:54 96 11/28/16 16:23 98.3 68 20 107/54 (71) 96 11/28/16 12:25 98.4 77 20 138/62 (87) 96 Intake & Output 11/29/16 11/29/16 07:00 19:00 Output Total 850 ml Balance -850 ml Output Urine Total 850 ml # Bowel Movements 3 Result Diagram: 11/28/1619 11/29/1647 Objective Remarks Abd:soft,nt,nd Urine clear Medications and IVs Current Medications Medications (Trade) Dose Ordered Sig/Jasmina Route Start Time Stop Time Status Last Admin (NS Flush) 2 ml BID IV FLUSH 11/26/16 21:00 11/28/16 21:00 (NS Flush) 2 ml UNSCH PRN IV FLUSH 11/26/16 16:45 (Vasotec Inj) 1.25 mg Q4H PRN IV PUSH 11/26/16 16:45 (Aspirin Chew) 162 mg DAILY PO 11/27/16 09:00 11/28/16 08:50 (Arimidex) 1 mg DAILY PO 11/27/16 09:00 11/28/16 08:50 (Tenormin) 50 mg DAILY PO 11/27/16 09:00 11/28/16 08:50 (Tessalon) 100 mg TID PRN PO 11/26/16 16:45 11/28/16 21:44 (Symbicort 80-4.5 Mcg Inh) 2 puff Q12HR INH 11/26/16 21:00 11/28/16 21:00 (Synthroid) 150 mcg DAILY PO 11/27/16 09:00 11/28/16 08:51 (Remeron) 45 mg HS PO 11/26/16 21:00 11/28/16 21:29 (Singulair) 10 mg HS PO 11/26/16 21:00 11/28/16 21:28 (Oramorph Sr) 15 mg Q6HR PO 11/26/16 18:00 11/29/16 05:40 (Msir) 15 mg Q4H PRN PO 11/26/16 16:45 (Pravachol) 10 mg HS PO 11/26/16 21:00 11/28/16 21:28 (Paxil) 30 mg DAILY PO 11/27/16 09:00 11/28/16 08:51 (Pill Splitter) 1 ea UNSCH PRN OTHER 11/26/16 17:30 (Duoneb Neb) 1 ampule QID NEB NEB 11/26/16 20:00 11/28/16 19:31 Sodium Bicarbonate 50 meq/Sodium Chloride 1,050 ml @ 42 mls/hr Q24H IV 11/28/16 14:00 (Lovenox Inj) 40 mg Q12HR SQ 11/28/16 21:00 11/28/16 21:00 (Coumadin) 2.5 mg DAILY@16 PO 11/28/16 18:00 11/28/16 20:26 Assessment and Plan Assessment and Plan 86 y.o female with h/o gross hematuria with h/o bladder cancer. No more evidence of hematuria. Bleeding may have been from around stoma Check IVP and urine cytology F/U with Dr. Paredes as outpt. Charlie Lopez DO Nov 29, 2016 08:58
[2016-11-29] MEDS ORDERED: IOHEXOL 350 MG/ML 10 ML VIAL (for RAD DIAG) IVCONTRAST ONE (10:21)
--- NOTE | 2016-11-29 10:39 | RADRPT ---
EXAM DATE/TIME: 11/29/2016 09:16 [facility] COMPARISON: No previous studies available for comparison. INDICATIONS : Hematuria from ileal conduit. FLUORO TIME: 0 minutes IMAGE COUNT: 15 CONTRAST: 10 cc Omnipaque 350 (iohexol) IV MEDICAL HISTORY : Carcinoma, colon. Carcinoma, breast. Carcinoma, bladder. HTN. COPD SURGICAL HISTORY : Tonsillectomy. Colon resection. Appendectomy. Cholecystectomy. Urostomy. Cardiac valve ENCOUNTER: Initial ACUITY: 1 month PAIN SCORE: 2/10 LOCATION: abdominal FINDINGS: Preliminary film is unremarkable. Following the raid intravenous administration of non-ionic contrast prompt symmetrical bilateral neph rograms were obtained. The kidneys are normal in size, shape position and axis. The intrarenal colle cting systems and ureters are unremarkable. No evidence for obstruction or intraluminal filling defec t. Contrast flows freely into the ileal conduit. CONCLUSION: Unremarkable excretory urogram, as above. Taz Loomis MD on November 29, 2016 at 10:35 Board Certified Radiologist. This report was verified electronically.
[2016-11-29] MEDS: PARoxetine HCL 20 MG TAB PO SCH (10:52)
[2016-11-29] MEDS: ANASTROZOLE 1 MG TAB PO SCH (10:52)
[2016-11-29] MEDS: ASPIRIN 81 MG CHEW TAB PO SCH (10:52)
[2016-11-29] MEDS: ATENOLOL 50 MG TAB PO SCH (10:52)
--- NOTE | 2016-11-29 10:52 | HHI.PR ---
Subjective Remarks just got back from urogram tolerated well coughing, not able to bring secretions no fever no cp no sob wants to eat left hand improving no headache daughter at bsd Objective Objective Results - Vital Signs Date Time Temp Pulse Resp B/P (MAP) Pulse Ox O2 Delivery O2 Flow Rate FiO2 11/29/16 08:53 97.9 64 20 152/106 (121) 99 11/29/16 06:00 97.2 70 18 151/100 (117) 93 11/29/16 00:58 98.7 63 20 175/72 (106) 99 11/28/16 20:16 98.8 98 16 141/64 (89) 99 11/28/16 19:33 94 21 11/28/16 17:54 96 11/28/16 16:23 98.3 68 20 107/54 (71) 96 11/28/16 12:25 98.4 77 20 138/62 (87) 96 I/O 11/28/16 11/28/16 11/28/16 11/29/16 11/29/16 11/29/16 07:00 15:00 23:00 07:00 15:00 23:00 Intake Total 660 ml Output Total 330 ml 850 ml Balance -330 ml 660 ml -850 ml Intake Oral 660 ml Output Urine Total 330 ml 850 ml # Bowel Movements 3 Result Diagram: 11/28/16 0811/29/16 0647 Other Results Laboratory Tests Test 11/28/16 14:36 11/29/16 06:47 Blood Urea Nitrogen 42 35 Creatinine 1.17 0.89 Random Glucose 104 104 Calcium Level 8.7 8.4 Sodium Level 138 142 Potassium Level 5.9 4.6 Chloride Level 106 110 Carbon Dioxide Level 25.3 24.6 Anion Gap 7 7 Estimat Glomerular Filtration Rate 44 60 Total Protein 5.8 Albumin 2.5 Alkaline Phosphatase 397 Aspartate Amino Transf (AST/SGOT) 81 Alanine Aminotransferase (ALT/SGPT) 69 Total Bilirubin 0.4 Random Cortisol 1.7 ROS General: Weakness Pulmonary: Cough, Wheezing Neuro/MS: Other (left sided weakness ) Physical Exam Physical Exam GENERAL: This is a well-nourished, well-developed patient, in no apparent distress. SKIN: No rashes, ecchymoses or lesions. Cool and dry. HEAD: Atraumatic. Normocephalic. No temporal or scalp tenderness. EYES: Pupils equal round and reactive. Extraocular motions intact. No scleral icterus. No injection or drainage. ENT: Nose without bleeding, purulent drainage or septal hematoma. Throat without erythema, tonsillar hypertrophy or exudate. Uvula midline. Airway patent. NECK: Trachea midline. No JVD or lymphadenopathy. Supple, nontender, no meningeal signs. CARDIOVASCULAR: Regular rate and rhythm with 2/6 murmurs, no gallops, no rubs. RESPIRATORY: coarse ronchi RUL, RML, exp. wheezing GASTROINTESTINAL: Abdomen soft, non-tender, nondistended. No hepato-splenomegaly , or palpable masses. No guarding. MUSCULOSKELETAL: Extremities without clubbing, cyanosis, or edema. No joint tenderness, effusion, or edema noted. No calf tenderness. Negative Homans sign bilaterally. NEUROLOGICAL: Awake, alert oriented 3. Speech is clear. Left nasolabial fold droop. Noted with left upper extremity distal weakness, ataxia with finger-to- nose. Left upper extremity strength is 3 out of 5. Left lower extremity weakness, 3 out of 5. Urinary Catheter: No Vascular Central Line Catheter: No A/P Diagnosis: (1) CVA (cerebral vascular accident) ICD Codes: I63.9 - Cerebral infarction, unspecified Status: Acute (2) Acute left-sided weakness ICD Codes: M62.89 - Other specified disorders of muscle Status: Acute (3) Hx pulmonary embolism ICD Codes: Z86.711 - Personal history of pulmonary embolism Status: Chronic (4) Hx of deep venous thrombosis ICD Codes: Z86.718 - Personal history of other venous thrombosis and embolism Status: Chronic (5) COPD with exacerbation ICD Codes: J44.1 - Chronic obstructive pulmonary disease with (acute) exacerbation Status: Chronic (6) Hx of bladder cancer ICD Codes: Z85.51 - Personal history of malignant neoplasm of bladder Status: Chronic (7) HTN (hypertension) ICD Codes: I10 - Essential (primary) hypertension Status: Chronic (8) Breast cancer, left ICD Codes: C50.912 - Malignant neoplasm of unspecified site of left female breast Status: Chronic (9) Hematuria ICD Codes: R31.9 - Hematuria, unspecified Status: Chronic (10) Murmur ICD Codes: R01.1 - Cardiac murmur, unspecified Status: Chronic (11) Hx of thrombocytopenia ICD Codes: Z86.2 - Personal history of diseases of the blood and blood-forming organs and certain disorders involving the immune mechanism Status: Chronic (12) Elevated LFTs ICD Codes: R79.89 - Other specified abnormal findings of blood chemistry Status: Chronic (13) Metabolic acidosis ICD Codes: E87.2 - Acidosis Status: Acute (14) Hyperkalemia ICD Codes: E87.5 - Hyperkalemia Status: Acute Assessment and Plan 86-year-old elderly white female with multiple comorbidities, presented with left-sided weakness. History of thrombocytopenia, prior TIA, chronic anticoagulation for history of DVT and PE. History of bladder cancer, now with left breast cancer. Acute left-sided weakness-Right MCA stroke -Continue with neuro checks -appreciate neuro input, recommends heme evaluation for recommendations on OAC. Poss coumadin, safer choice. ? hypercoag status -Continue with aspirin 162 mg by mouth daily and Lovenox for now -Brain MRI, + right MCA stroke -CUS-minimal plaque. Had recent echocardiogram, September 2016, EF 65-70%. Mild to moderate prostatic regurgitation of aortic valve breast the services, left atrial size moderately dilated. -EEG okay, mild encephalopathy -hemoglobin A1c 6.9 -Continue statins, lipid profile noted -control BP, stable -PT, OT, speech therapy -stable, needs rehab. BP well controlled -started on Coumadin, Lovenox inc. to BID. Follow INR daily, pharmacy consult Renal insufficiency, likely dehydrated Hyperkalemia -repeat K yesterday 5.9, given Kayaxate. K down to 4.6 today -acidosis has improved, creat better -dc IVF -cortisol level 1.7 Left breast cancer, underwent recent biopsy and lumpectomy with intraoperative radiation. -Stable continue to monitor -appreciate heme input Chronic anticoagulation for history of DVT and PE, currently on Lovenox. Was recently on Coumadin, this was stopped due to hematuria. -hematology following, started on Coumadin, Lovenox inc. to 40 mg SQ BID Recurrent hematuria, history of bladder cancer, underwent cystectomy Recurrent UTI -Continue to monitor for hematuria -Monitor H&H, stable -appreciate urology input, recommends IVP, urine cytology, Ok for Coumadin. can f/u Dr. Paredes as OP if any rebleeding, recommends poss silver nitrate sticks to stop bleeding in the future if the bleeding site is identified. -had urogram, ok findings Elevated liver enzymes, underwent recent GI workup -Continue to monitor liver enzymes, unchanged. Recent admission for COPD with bronchitis, has scattered fine rhonchi and mild expiratory wheezing Mild exacerbation now -continue DuoNeb's 4 times a day -Monitor sats -continue Symbicort -Continue Tessalon as needed for cough -Pulm input appreciated. -add Mucinex 600 mg po bid History of DVT and PE on Lovenox -Continue with Lovenox Hypertension, well-controlled -Continue home medications Physical debility, has had recent hospitalization with multiple complications -Physical therapy for evaluation Continue with Lovenox for DVT prophylaxis continue with PT, speech therapy and occupational therapy continue [facility] soft diet, instructed to eat slow, needs to sit up Labs reviewed stable pt. ok to dc to rehab, d/w heme Discharge to [facility] today F/U neurology, hematology, urology diet-heart healthy activity-as tolerated D/W RN D/W Dr. Albert/Melvin Mathis PA/Dr. Calabrese D/W pt and daughter D/W [facility] CM This patient was seen by myself and Dr. Albert, this note is written on his behalf Discharge Planning 45 Problem Qualifiers (1) CVA (cerebral vascular accident): Qualified Codes: I63.9 - Cerebral infarction, unspecified (2) HTN (hypertension): Qualified Codes: I10 - Essential (primary) hypertension (3) Breast cancer, left: [place] Nov 29, 2016 10:52
[2016-11-29] MEDS: ENOXAPARIN SODIUM 40 MG/0.4 ML SYRINGE SQ SCH (10:53)
[2016-11-29] MEDS: LEVOTHYROXINE SODIUM 150 MCG TAB PO SCH (10:53)
[2016-11-29] MEDS: SODIUM CHLORIDE 0.9% FLUSH 5 ML FLUSH IV FLUSH SCH (10:53)
[2016-11-29] MEDS: BUDESONIDE-FORMOTEROL 80/4.5 MCG INHALER INH SCH (10:53)
[2016-11-29] MEDS ORDERED: ENOX40P SQ (10:54)
[2016-11-29] MEDS ORDERED: COUM2.5T PO (10:54)
[2016-11-29] MEDS ORDERED: IPRASOL NEB (10:54)
--- NOTE | 2016-11-29 10:54 | HHI.DCPOC ---
Discharge Care Plan Diagnosis: (1) Acute right MCA stroke Your Health Problems Are: Difficulty with ADL Goals to Promote Your Health * To prevent worsening of your condition and complications * To maintain your health at the optimal level Directions to Meet Your Goals Take your medications as prescribed Follow your dietary instruction Follow activity as directed Keep your appointments as scheduled Take your immunizations and boosters as scheduled If your symptoms worsen call your PCP, if no PCP go to Urgent Care Center or Emergency Room Smoking is Dangerous to Your Health. Avoid second hand smoke Call the 24-hour hour crisis hotline for domestic abuse at [place]. [place] Nov 29, 2016 10:54
[2016-11-29] MEDS ORDERED: guaiFENesin ER PO (11:35)
[2016-11-29 11:44] LABS: BASOPHIL % 0.7 % (0.0-2.0); EOSINOPHIL # 0.1 TH/MM3 (0-0.4); HEMATOCRIT 39.1 % (35.0-46.0); HEMO FLAGS DIFF FINAL; LYMPH % 31.2 % (9.0-44.0); LYMPHOCYTE # 2.1 TH/MM3 (1.0-4.8); MEAN CELL VOLUME 93.8 FL (80.0-100.0); MEAN CORPUSCULAR HEMOGLOBIN 31.2 PG (27.0-34.0); MEAN CORPUSCULAR HGB CONC 33.3 % (32.0-36.0); MONO % 7.7 % (0.0-8.0); NEUT % 58.4 % (16.0-70.0); PLATELET COUNT 162 TH/MM3 (150-450); RED BLOOD COUNT 4.17 MIL/MM3 (4.00-5.30); RED CELL DISTRIBUTION WIDTH 15.4 % (11.6-17.2); WHITE BLOOD COUNT 6.8 TH/MM3 (4.0-11.0)
[2016-11-29 11:53] LABS: INTERNATIONAL NORMALIZED RATIO 1.1 RATIO
[2016-11-29] MEDS ORDERED: RESP: ALBUTEROL 2.5 MG/IPRATROPIUM 0.5 MG NEB (PRN) NEB (12:00)
--- NOTE | 2016-11-29 12:30 | PD.ONC.PN ---
Subjective Subjective Remarks Afebrile overnight. Patient resting in bed in nad. Went down for urogram today. Eager to go to rehab. Objective Data Date Time Temp Pulse Resp B/P (MAP) Pulse Ox O2 Delivery O2 Flow Rate FiO2 11/29/16 08:53 97.9 64 20 152/106 (121) 99 11/29/16 06:00 97.2 70 18 151/100 (117) 93 11/29/16 00:58 98.7 63 20 175/72 (106) 99 11/28/16 20:16 98.8 98 16 141/64 (89) 99 11/28/16 19:33 94 21 11/28/16 17:54 96 11/28/16 16:23 98.3 68 20 107/54 (71) 96 11/28/16 12:25 98.4 77 20 138/62 (87) 96 11/29/16 11/29/16 11/29/16 07:00 15:00 23:00 Output Total 850 ml Balance -850 ml Result Diagram: 11/29/16 1129 11/29/16 0647 Laboratory Results Laboratory Tests Test 11/28/16 14:36 11/29/16 06:47 11/29/16 11:29 Blood Urea Nitrogen 42 MG/DL 35 MG/DL Creatinine 1.17 MG/DL 0.89 MG/DL Random Glucose 104 MG/DL 104 MG/DL Calcium Level 8.7 MG/DL 8.4 MG/DL Sodium Level 138 MEQ/L 142 MEQ/L Potassium Level 5.9 MEQ/L 4.6 MEQ/L Chloride Level 106 MEQ/L 110 MEQ/L Carbon Dioxide Level 25.3 MEQ/L 24.6 MEQ/L Anion Gap 7 MEQ/L 7 MEQ/L Estimat Glomerular Filtration Rate 44 ML/MIN 60 ML/MIN Total Protein 5.8 GM/DL Albumin 2.5 GM/DL Alkaline Phosphatase 397 U/L Aspartate Amino Transf (AST/SGOT) 81 U/L Alanine Aminotransferase (ALT/SGPT) 69 U/L Total Bilirubin 0.4 MG/DL Random Cortisol 1.7 MCG/DL White Blood Count 6.8 TH/MM3 Red Blood Count 4.17 MIL/MM3 Hemoglobin 13.0 GM/DL Hematocrit 39.1 % Mean Corpuscular Volume 93.8 FL Mean Corpuscular Hemoglobin 31.2 PG Mean Corpuscular Hemoglobin Concent 33.3 % Red Cell Distribution Width 15.4 % Platelet Count 162 TH/MM3 Mean Platelet Volume 8.3 FL Neutrophils (%) (Auto) 58.4 % Lymphocytes (%) (Auto) 31.2 % Monocytes (%) (Auto) 7.7 % Eosinophils (%) (Auto) 2.0 % Basophils (%) (Auto) 0.7 % Neutrophils # (Auto) 4.0 TH/MM3 Lymphocytes # (Auto) 2.1 TH/MM3 Monocytes # (Auto) 0.5 TH/MM3 Eosinophils # (Auto) 0.1 TH/MM3 Basophils # (Auto) 0.0 TH/MM3 CBC Comment DIFF FINAL Differential Comment Prothrombin Time 12.0 SEC Prothromb Time International Ratio 1.1 RATIO Imaging Studies Last 24 hours Impressions Urogram 11/29/16 0000 Signed Impressions: Service Date/Time: Tuesday, November 29, 2016 09:16 - CONCLUSION: Unremarkable excretory urogram, as above. Taz Loomis MD Administered Medications Medications (Trade) Dose Ordered Sig/Jasmina Route PRN Reason Start Time Stop Time Status Last Admin Dose Admin IV Flush (NS Flush) 2 ml BID IV FLUSH 11/26/16 21:00 11/29/16 10:53 Aspirin (Aspirin Chew) 162 mg DAILY PO 11/27/16 09:00 11/29/16 10:52 Anastrozole (Arimidex) 1 mg DAILY PO 11/27/16 09:00 11/29/16 10:52 Atenolol (Tenormin) 50 mg DAILY PO 11/27/16 09:00 11/29/16 10:52 Benzonatate (Tessalon) 100 mg TID PRN PO COUGH 11/26/16 16:45 11/28/16 21:44 Budesonide/ Formoterol Fumarate (Symbicort 80-4.5 Mcg Inh) 2 puff Q12HR INH 11/26/16 21:00 11/29/16 10:53 Levothyroxine Sodium (Synthroid) 150 mcg DAILY PO 11/27/16 09:00 11/29/16 10:53 Mirtazapine (Remeron) 45 mg HS PO 11/26/16 21:00 11/28/16 21:29 Montelukast Sodium (Singulair) 10 mg HS PO 11/26/16 21:00 11/28/16 21:28 Morphine Sulfate (Oramorph Sr) 15 mg Q6HR PO 11/26/16 18:00 11/29/16 05:40 Pravastatin Sodium (Pravachol) 10 mg HS PO 11/26/16 21:00 11/28/16 21:28 Paroxetine HCl (Paxil) 30 mg DAILY PO 11/27/16 09:00 11/29/16 10:52 Albuterol/ Ipratropium (Duoneb Neb) 1 ampule QID NEB NEB 11/26/16 20:00 11/28/16 19:31 Enoxaparin Sodium (Lovenox Inj) 40 mg Q12HR SQ 11/28/16 21:00 11/29/16 10:53 Warfarin Sodium (Coumadin) 2.5 mg DAILY@16 PO 11/28/16 18:00 11/28/16 20:26 Objective Remarks GENERAL: Elderly female upright in bed in nad. SKIN: Warm and dry. HEAD: Normocephalic. EYES: No injection or drainage. NECK: Supple, trachea midline. CARDIOVASCULAR: +S1/S2 RESPIRATORY: anterior lockhart clear. GASTROINTESTINAL: Abdomen soft, non-tender, nondistended. EXTREMITIES: No cyanosis NEUROLOGICAL: awake, alert and oriented. normal speech. Assessment/Plan Problem List: (1) CVA (cerebral vascular accident) ICD Codes: I63.9 - Cerebral infarction, unspecified Status: Acute Plan: on ASA 162mg daily --on LMWH --started on coumadin bridge on 11/28 History: --went to bed at 09:30 p.m. at night feeling well. woke up at 08:00 a.m. with weakness, dysarthria, left-sided facial droop. --brought into the emergency room but was not a candidate for thrombolytic therapy. --had acute left-sided weakness improved at the time of the consultation. -- history of TIA and amaurosis fugax but never a stroke. --presents with weakness consistent with subacute white matter lacunae in the high frontal parietal region. --Neurology been consulted and concluded that she probably had a right MCA stroke. (2) Breast cancer, left ICD Codes: C50.912 - Malignant neoplasm of unspecified site of left female breast Status: Acute Plan: --on aromatase inhibitor --status post definitive surgery and intraoperative radiation. ++HER2/charisma over expressing stage I ER positive left breast cancer. (3) Metastatic carcinoma ICD Codes: C79.9 - Secondary malignant neoplasm of unspecified site Plan: --metastatic carcinoid on no specific therapy (4) Hematuria ICD Codes: R31.9 - Hematuria, unspecified Status: Chronic Assessment 86y/o female with right MCA stroke while on low-molecular weight heparin. history of anxiety, arthritis, asthma, COPD, coronary artery disease, hypercholesterolemia, hypertension, and hypothyroidism. h/o Bovine valve. Bowel resection.Lymph node removal.Tonsillectomy.EGD and dilatation.AVR and single vessel CABG 2009.Cholecystectomy.Cystectomy with ileal conduit. Plan 1. continue ASA and LMWH 2. continue bridge to coumadin. 3. ok to d/c to rehab Attending Statement The exam, history, and the medical decision-making described in the above note were completed with the assistance of the mid-level provider. I reviewed and agree with the findings presented. I attest that I had a [id number] encounter with the patient on the same day, and personally performed and documented my assessment and findings in the medical record. Discussed w/ daughter via phone plan to bridge to therapeutic INR with Lovenox. Cont bridge at [place]. Pt transferred in afternoon and pt seen in evening. Resting comfortably, no complaints. Follow up as out pt. Note Urogram results. Monitor for hematuria, fu w/ Dr. Paredes. Problem Qualifiers (1) CVA (cerebral vascular accident): Qualified Codes: I63.9 - Cerebral infarction, unspecified (2) Breast cancer, left: Brandie Mathis Nov 29, 2016 12:30 Donna Meza MD Nov 29, 2016 17:57
[2016-11-29 12:53] VITALS: BP 135/63; PULSE 66; RESP 20; TEMP 97.5; O2SAT 97
--- NOTE | 2016-11-29 13:57 | HHI.DS ---
Discharge Summary Admission Date Nov 26, 2016 at 15:55 Discharge Date: Nov 29, 2016 Admitting Diagnosis CVA/LEFT SIDED WEAKNESS (1) CVA (cerebral vascular accident) ICD Codes: I63.9 - Cerebral infarction, unspecified Status: Acute (2) Acute left-sided weakness ICD Codes: M62.89 - Other specified disorders of muscle Status: Acute (3) Hx pulmonary embolism ICD Codes: Z86.711 - Personal history of pulmonary embolism Status: Chronic (4) Hx of deep venous thrombosis ICD Codes: Z86.718 - Personal history of other venous thrombosis and embolism Status: Chronic (5) COPD with exacerbation ICD Codes: J44.1 - Chronic obstructive pulmonary disease with (acute) exacerbation Status: Chronic (6) Hx of bladder cancer ICD Codes: Z85.51 - Personal history of malignant neoplasm of bladder Status: Chronic (7) HTN (hypertension) ICD Codes: I10 - Essential (primary) hypertension Status: Chronic (8) Breast cancer, left ICD Codes: C50.912 - Malignant neoplasm of unspecified site of left female breast Status: Chronic (9) Hematuria ICD Codes: R31.9 - Hematuria, unspecified Status: Chronic (10) Murmur ICD Codes: R01.1 - Cardiac murmur, unspecified Status: Chronic (11) Hx of thrombocytopenia ICD Codes: Z86.2 - Personal history of diseases of the blood and blood-forming organs and certain disorders involving the immune mechanism Status: Chronic (12) Elevated LFTs ICD Codes: R79.89 - Other specified abnormal findings of blood chemistry Status: Chronic (13) Metabolic acidosis ICD Codes: E87.2 - Acidosis Status: Acute (14) Hyperkalemia ICD Codes: E87.5 - Hyperkalemia Status: Acute Brief History This a pleasant 86-year-old elderly female with significant and complex past medical history of COPD not oxygen dependent, CAD, TIA, arthritis, bladder cancer status post cystectomy, neuroendocrine malignancy, 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 Patient presented to the emergency room with complaining of left -sided weakness since awakening this morning, possibly between 8 and 9:30 in the morning. According to the daughter, she fed her breakfast and the patient appeared to be at baseline. She complained last night of feeling generally weak and had some difficulty getting up from the chair. She has been debilitated since recent admissions. Today, she went back to bed after breakfast and when she woke up she complained of left-sided weakness, she states that she couldn't control her left hand. There was no speech difficulty , mild headache, no vision changes. Patient has had recent hospitalizations for multiple complications arising from her chronic conditions. She was initially admitted for COPD with bronchitis and then returned to the hospital with recurring symptoms as well as hematuria. During August readmission, she was found thrombocytopenic and there was a suspicion the patient had TTP but this was ruled out. She underwent workup per her egg gatherer Dr. Dr. Meza. She plasma change 5 treatments and received steroids, her platelets improved. Additionally she was noted with elevated liver enzymes, she underwent workup per gastroenterology and was due to follow-up with Dr. Cohen this week. No exact etiology for the elevated liver enzymes was found,pt. had intermittent hx of elevated LFTs. Because of the hematuria and findings of thrombocytopenia, it was recommended that patient stopped Eliquis and was transitioned to Lovenox. She was eventually discharged in stable condition. On 10/21/2016, she underwent lymph node biopsy and lumpectomy with placement of intraoperative radiation devise and intraoperative radiation. Dr. Morris is her radiation oncologist. She only had one single treatment. After she had the procedure, Dr. Meza recommended transitioning to low dose Coumadin and was being transitioned slowly however she had recurrent hematuria therefore the Coumadin was stopped. She continues on Lovenox injections, however she missed today's dose. Patient was supposed to follow-up with Dr. Paredes this week for the hematuria, and she is currently being treated for recurrent UTI with Bactrim. At this time, she denies any hematuria. Patient and daughter endorse that she has had very poor appetite, she has had ongoing nausea. She denies any chest pain, no shortness of breath. Indicates that there hasn't been any recurrence of any bronchitis symptoms. There hasn't been any recent fever, no chills. In the emergency room, patient was evaluated. Laboratory workup was completed. CBC was essentially unremarkable. BMP was remarkable for mild dehydration, creatinine elevated 1.26. Liver enzymes mildly elevated, similar to previous admission. Chest x-ray showed cardiomegaly, no significant findings. CT of the head did not reveal any acute intracranial abnormality. Small calcified extra-axial rounded lesion in the anterior frontal high vertex reflects sequela of prior injury inflammation. Differential considerations include a small meningioma, although this will be atypical in appearance. Patient initially presented as a stroke alert however she was outside window of TPA and was also not a candidate because of recent bleeding history. Neurology professional housing consultant was consulted and called from the emergency room no other workup was ordered. Patient was given aspirin 324 mg by mouth. She remains hemodynamically stable, blood pressure is within normal findings. She is complaining of feeling thirsty and wants something to eat. Her speech is clear and she is neurologically intact. There is obvious left upper extremity and lower extremity weakness. Patient is overall pretty good historian, the rest of the information is supplemented by her 2 children whom she lives with. Patient is admitted for further evaluation and treatment. CBC/BMP: 11/29/16 1129 11/29/16 0647 Significant Findings Laboratory Tests Test 11/26/16 14:20 11/27/16 05:43 11/28/16 08:19 11/28/16 14:36 Lymphocytes (%) (Auto) 47.7 % (9.0-44.0) Monocytes (%) (Auto) 12.2 % (0.0-8.0) Lymphocytes # (Auto) 4.9 TH/MM3 (1.0-4.8) Monocytes # (Auto) 1.2 TH/MM3 (0-0.9) Blood Urea Nitrogen 44 MG/DL (7-18) 42 MG/DL (7-18) 38 MG/DL (7-18) 42 MG/DL (7-18) Creatinine 1.26 MG/DL (0.50-1.00) 1.11 MG/DL (0.50-1.00) 1.18 MG/DL (0.50-1.00) 1.17 MG/DL (0.50-1.00) Random Glucose 57 MG/DL (74-106) 139 MG/DL (74-106) Albumin 3.0 GM/DL (3.4-5.0) 2.5 GM/DL (3.4-5.0) Alkaline Phosphatase 364 U/L (45-117) 407 U/L (45-117) Aspartate Amino Transf (AST/SGOT) 51 U/L (15-37) 65 U/L (15-37) Alanine Aminotransferase (ALT/SGPT) 67 U/L (10-53) 62 U/L (10-53) Chloride Level 112 MEQ/L (98-107) 112 MEQ/L (98-107) 109 MEQ/L (98-107) Estimat Glomerular Filtration Rate 40 ML/MIN (>89) 47 ML/MIN (>89) 44 ML/MIN (>89) 44 ML/MIN (>89) Hemoglobin A1c 6.9 % (4.3-6.0) Troponin I LESS THAN 0.02 NG/ML Total Protein 6.1 GM/DL (6.4-8.2) Calcium Level 8.2 MG/DL (8.5-10.1) Potassium Level 5.2 MEQ/L (3.5-5.1) 5.8 MEQ/L (3.5-5.1) 5.9 MEQ/L (3.5-5.1) Carbon Dioxide Level 19.7 MEQ/L (21.0-32.0) 17.7 MEQ/L (21.0-32.0) HDL Cholesterol 62.6 MG/DL (40.0-60.0) Platelet Count 147 TH/MM3 (150-450) Test 11/29/16 06:47 11/29/16 11:29 Blood Urea Nitrogen 35 MG/DL (7-18) Total Protein 5.8 GM/DL (6.4-8.2) Albumin 2.5 GM/DL (3.4-5.0) Calcium Level 8.4 MG/DL (8.5-10.1) Alkaline Phosphatase 397 U/L (45-117) Aspartate Amino Transf (AST/SGOT) 81 U/L (15-37) Alanine Aminotransferase (ALT/SGPT) 69 U/L (10-53) Chloride Level 110 MEQ/L (98-107) Estimat Glomerular Filtration Rate 60 ML/MIN (>89) Prothrombin Time 12.0 SEC (9.8-11.6) Imaging Last Impressions Urogram 11/29/16 0000 Signed Impressions: Service Date/Time: Tuesday, November 29, 2016 09:16 - CONCLUSION: Unremarkable excretory urogram, as above. Taz Loomis MD Head CT 11/26/16 5348 Signed Impressions: Service Date/Time: Saturday, November 26, 2016 14:25 - CONCLUSION: 1. Small calcified extra-axial rounded lesion in the anterior frontal high vertex, may reflect sequela of prior injury/inflammation. Differential considerations include a small meningioma, although this would be atypical in appearance. 2. Otherwise, no acute intracranial abnormality. Taz Loomis MD Chest X-Ray 11/26/16 1419 Signed Impressions: Service Date/Time: Saturday, November 26, 2016 15:08 - CONCLUSION: 1. Cardiomegaly. No acute pulmonary disease. Aric Tobar MD Head Magnetic Resonance Angiography 11/26/16 0000 Signed Impressions: Service Date/Time: Saturday, November 26, 2016 18:07 - CONCLUSION: Normal examination. Ho Lal MD Carotid Artery Ultrasound 11/26/16 Signed Impressions: Service Date/Time: Saturday, November 26, 2016 20:09 - CONCLUSION: Minimal plaque at the carotid bulb regions without a significant stenosis. Ho Salinas MD Brain MRI 11/26/16 Signed Impressions: Service Date/Time: Saturday, November 26, 2016 18:07 - CONCLUSION: Small subacute white matter lacunae in the high convexity right frontoparietal region. Chronic microvascular ischemic changes. 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 Patient presented to the emergency room with complaining of left -sided weakness since awakening this morning, possibly between 8 and 9:30 in the morning. According to the daughter, she fed her breakfast and the patient appeared to be at baseline. She complained last night of feeling generally weak and had some difficulty getting up from the chair. She has been debilitated since recent admissions. Today, she went back to bed after breakfast and when she woke up she complained of left-sided weakness, she states that she couldn't control her left hand. There was no speech difficulty , mild headache, no vision changes. Patient has had recent hospitalizations for multiple complications arising from her chronic conditions. She was initially admitted for COPD with bronchitis and then returned to the hospital with recurring symptoms as well as hematuria. During August readmission, she was found thrombocytopenic and there was a suspicion the patient had TTP but this was ruled out. She underwent workup per her egg gatherer Dr. Dr. Meza. She plasma change 5 treatments and received steroids, her platelets improved. Additionally she was noted with elevated liver enzymes, she underwent workup per gastroenterology and was due to follow-up with Dr. Cohen this week. No exact etiology for the elevated liver enzymes was found,pt. had intermittent hx of elevated LFTs. Because of the hematuria and findings of thrombocytopenia, it was recommended that patient stopped Eliquis and was transitioned to Lovenox. She was eventually discharged in stable condition. On 10/21/2016, she underwent lymph node biopsy and lumpectomy with placement of intraoperative radiation devise and intraoperative radiation. Dr. Morris is her radiation oncologist. She only had one single treatment. After she had the procedure, Dr. Meza recommended transitioning to low dose Coumadin and was being transitioned slowly however she had recurrent hematuria therefore the Coumadin was stopped. She continues on Lovenox injections, however she missed today's dose. Patient was supposed to follow-up with Dr. Paredes this week for the hematuria, and she is currently being treated for recurrent UTI with Bactrim. At this time, she denies any hematuria. Patient and daughter endorse that she has had very poor appetite, she has had ongoing nausea. She denies any chest pain, no shortness of breath. Indicates that there hasn't been any recurrence of any bronchitis symptoms. There hasn't been any recent fever, no chills. In the emergency room, patient was evaluated. Laboratory workup was completed. CBC was essentially unremarkable. BMP was remarkable for mild dehydration, creatinine elevated 1.26. Liver enzymes mildly elevated, similar to previous admission. Chest x-ray showed cardiomegaly, no significant findings. CT of the head did not reveal any acute intracranial abnormality. Small calcified extra-axial rounded lesion in the anterior frontal high vertex reflects sequela of prior injury inflammation. Differential considerations include a small meningioma, although this will be atypical in appearance. Patient initially presented as a stroke alert however she was outside window of TPA and was also not a candidate because of recent bleeding history. Neurology professional housing consultant was consulted and called from the emergency room no other workup was ordered. Patient was given aspirin 324 mg by mouth. She remains hemodynamically stable, blood pressure is within normal findings. She is complaining of feeling thirsty and wants something to eat. Her speech is clear and she is neurologically intact. There is obvious left upper extremity and lower extremity weakness. Patient is overall pretty good historian, the rest of the information is supplemented by her 2 children whom she lives with. Patient was admitted for further evaluation and treatment. During the course of the hospitalization, the following occurred: 86-year-old elderly white female with multiple comorbidities, presented with left-sided weakness. History of thrombocytopenia, prior TIA, chronic anticoagulation for history of DVT and PE. History of bladder cancer, now with left breast cancer. Acute left-sided weakness-Right MCA stroke -admitted to neuro floor, tele ordered, neuro checks. Put on NS. Permissive HTN. -Brain MRI, + right MCA stroke --CUS-minimal plaque. Echo unchanged from September -EEG okay, mild encephalopathy -appreciate neuro input, recommended heme evaluation for recommendations on OAC. Poss coumadin, safer choice. ? hypercoag status -Continue with aspirin 162 mg by mouth daily and Lovenox -hemoglobin A1c 6.9 -Continue statins, lipid profile noted -was put on Coumadin per heme recommendations -PT/OT/ST ordered. Pt. worked with therapy, improving some. -Was accepted to [facility] for further rehab. Remained neurologically stable. Found in Renal insufficiency, likely dehydrated Hyperkalemia Acidotic. -Followed BMP, put on IVF. Repeated K 5.9, given Kayaxate. K down to 4.6 today -acidosis mproved, creat better -dcd IVF -cortisol level 1.7 Left breast cancer, underwent recent biopsy and lumpectomy with intraoperative radiation. -Stable continue to monitor -appreciated heme input Chronic anticoagulation for history of DVT and PE, currently on Lovenox. Was recently on Coumadin, this was stopped due to hematuria. -hematology following, started on Coumadin, Lovenox inc. to 40 mg SQ BID -tolerated well, no hematuria Recurrent hematuria, history of bladder cancer, underwent cystectomy Recurrent UTI -Continued to monitor for hematuria -Monitor H&H, stable -urology consulted. Appreciated their input. recommended IVP, urine cytology, Ok for Coumadin. can f/u Dr. Paredes as OP if any rebleeding, recommends poss silver nitrate sticks to stop bleeding in the future if the bleeding site is identified. -had urogram, ok findings -ok for dc Elevated liver enzymes, underwent recent GI workup -Continue to monitor liver enzymes, slightly elevated. -to follow up with GI as OP Recent admission for COPD with bronchitis, has scattered fine rhonchi and mild expiratory wheezing had mild exacerbation. -continued DuoNeb's 4 times a day -Monitored sats -continued Symbicort -Continued Tessalon as needed for cough -Pulm consulted, recommendation noted -added Mucinex 600 mg po bid -stable sats,afebrile, CXR okay History of DVT and PE on Lovenox -Continued with Lovenox Hypertension, well-controlled -Continued home medications Physical debility, has had recent hospitalization with multiple complications -Physical therapy for evaluation Continued with Lovenox for DVT prophylaxis continued with PT, speech therapy and occupational therapy continued [facility] soft diet, instructed to eat slow, needs to sit up Labs reviewed stable pt. ok to dc to rehab, d/w heme Discharge to [facility] F/U neurology, hematology, urology diet-heart healthy activity-as tolerated Pt Condition on Discharge: Stable Discharge Disposition: Rehab Inpatient Discharge Instructions DIET: Follow Instructions for: Heart Healthy Diet Speech Therapy-Diet Recommends: Mechanical Soft, Chopped Meat w/Gravy Activities you can perform: Weight Bearing as Kaye Follow up Referrals: Neurology - 4 Weeks Oncology PCP Follow-up Urology - 3 Weeks New Medications: Enoxaparin Inj (Lovenox Inj) 40 Mg/0.4 Ml Syr 40 MG SQ Q12HR for Stroke Prevention, #60 INJECTION Ipratropium-Albuterol Neb (Duoneb) 0.5-2.5 Mg/3 Ml Neb 1 AMPULE NEB QID NEB for Broncospasm, #15 ML Warfarin (Coumadin) 2.5 Mg Tab 2.5 MG PO DAILY@16 for Stroke Prevention, #30 TAB [guaiFENesin ER] () 600 MG TABCR 600 MG PO BID for Chest Congestion/Cough, #60 Continued Medications: Anastrozole (Arimidex) 1 Mg Tab 1 MG PO DAILY for Breast Cancer, #30 TAB 0 Refills Atenolol (Atenolol) 50 Mg Tab 50 MG PO DAILY for Blood Pressure Management, #30 TAB 0 Refills Benzonatate (Benzonatate) 100 Mg Cap 100 MG PO TID PRN for COUGH, CAP 0 Refills Budesonide-Formoterol Inh (Symbicort Inh) 80-4.5 Mcg/Act Aero 2 PUFF INH Q12HR for Breathing Treatment for 30 Days, INHALER Cholecalciferol (Vitamin D3) 1,000 Unit Tab 2000 UNITS PO DAILY for Nutritional Supplement, #1 BOTTLE 0 Refills Hydralazine HCl (Hydralazine HCl) 25 Mg Tablet 25 MG PO Q8HR for Blood Pressure Management for 30 Days, TAB Levothyroxine (Levothyroxine) 150 Mcg Tab 150 MCG PO DAILY for Thyroid, #30 TAB 0 Refills Lisinopril (Lisinopril) 20 Mg Tab 20 MG PO Q12HR for Blood Pressure Management for 30 Days, TAB Mirtazapine (Mirtazapine) 45 Mg Tab 45 MG PO HS for Depression Control, #30 TAB 0 Refills Montelukast (Singulair) 10 Mg Tab 10 MG PO HS, #30 TAB 0 Refills Morphine ER (Morphine ER) 15 Mg Tab 15 MG PO Q6HR for Pain Management, TAB 0 Refills Morphine IR (Morphine IR) 15 Mg Tab 15 MG PO Q4H PRN for PAIN, TAB 0 Refills Paroxetine (Paroxetine) 30 Mg Tab 30 MG PO DAILY, #30 TAB 0 Refills Pravastatin (Pravastatin) 10 Mg Tab 10 MG PO HS for Cholesterol Management, #30 TAB 0 Refills Discontinued Medications: Enoxaparin Inj (Lovenox Inj) 40 Mg/0.4 Ml Syr 40 MG SQ DAILY for Blood Clot Prevention, #10 SYRINGE 0 Refills Linda Land Nov 29, 2016 13:57
[2016-11-29 14:17] VITALS: PULSE 64
--- NOTE | 2016-11-29 14:20 | HHI.PR ---
Review/Management Diagnosis/Plan: (1) Acute right MCA stroke ICD Codes: I63.511 - Cerebral infarction due to unspecified occlusion or stenosis of right middle cerebral artery Status: Acute Plan: probable rt mca stroke off full anticoagulation hx of cancer; ? hypercoag state mri brain reviewed- small rt subcortical infarct; mra brain/carotids nml recs motor function improved started on coumadin, bridge with lovenox; will d/c aspirin going to rehab f/u with us in 1-2 weeks post-d/c (2) Neuroendocrine carcinoma metastatic to multiple sites ICD Codes: C7A.8 - Other malignant neuroendocrine tumors; C7B.8 - Other secondary neuroendocrine tumors Status: Chronic Plan: onc following (3) HTN (hypertension) ICD Codes: I10 - Essential (primary) hypertension Status: Chronic Plan: <160/100 (4) Breast cancer, left ICD Codes: C50.912 - Malignant neoplasm of unspecified site of left female breast Status: Chronic Plan: onc management Subjective Subjective Comments No acute events reported; feels stronger No headache No chest pain No dyspnea Active Medications Current Medications Medications (Trade) Dose Ordered Sig/Jasmina Route Start Time Stop Time Status Last Admin (NS Flush) 2 ml BID IV FLUSH 11/26/16 21:00 11/29/16 10:53 (NS Flush) 2 ml UNSCH PRN IV FLUSH 11/26/16 16:45 (Vasotec Inj) 1.25 mg Q4H PRN IV PUSH 11/26/16 16:45 (Aspirin Chew) 162 mg DAILY PO 11/27/16 09:00 11/29/16 10:52 (Arimidex) 1 mg DAILY PO 11/27/16 09:00 11/29/16 10:52 (Tenormin) 50 mg DAILY PO 11/27/16 09:00 11/29/16 10:52 (Tessalon) 100 mg TID PRN PO 11/26/16 16:45 11/28/16 21:44 (Symbicort 80-4.5 Mcg Inh) 2 puff Q12HR INH 11/26/16 21:00 11/29/16 10:53 (Synthroid) 150 mcg DAILY PO 11/27/16 09:00 11/29/16 10:53 (Remeron) 45 mg HS PO 11/26/16 21:00 11/28/16 21:29 (Singulair) 10 mg HS PO 11/26/16 21:00 11/28/16 21:28 (Oramorph Sr) 15 mg Q6HR PO 11/26/16 18:00 11/29/16 12:38 (Msir) 15 mg Q4H PRN PO 11/26/16 16:45 (Pravachol) 10 mg HS PO 11/26/16 21:00 11/28/16 21:28 (Paxil) 30 mg DAILY PO 11/27/16 09:00 11/29/16 10:52 (Pill Splitter) 1 ea UNSCH PRN OTHER 11/26/16 17:30 Sodium Bicarbonate 50 meq/Sodium Chloride 1,050 ml @ 42 mls/hr Q24H IV 11/28/16 14:00 (Lovenox Inj) 40 mg Q12HR SQ 11/28/16 21:00 11/29/16 10:53 (Coumadin) 2.5 mg DAILY@16 PO 11/28/16 18:00 11/28/16 20:26 (Mucinex Er) 600 mg BID PO 11/29/16 21:00 (Duoneb Neb) 1 ampule Q4HR NEB PRN NEB 11/29/16 12:00 Allergies Allergies Coded Allergies amlodipine (Unverified Allergy, Severe, 11/26/16) atorvastatin (Unverified Allergy, Severe, 11/26/16) codeine (Unverified Allergy, Severe, nausea , 11/26/16) dimenhydrinate (Unverified Allergy, Severe, Confusion, 11/26/16) simvastatin (Unverified Allergy, Severe, 11/26/16) zolpidem (Unverified Allergy, Severe, Confusion, 11/26/16) Review of Systems All other ROS: ROS reviewed as documented in chart Exam I&O / VS Vital Signs Date Time Temp Pulse Resp B/P (MAP) Pulse Ox O2 Delivery O2 Flow Rate FiO2 11/29/16 12:53 97.5 66 20 135/63 (87) 97 11/29/16 08:53 97.9 64 20 152/106 (121) 99 11/29/16 06:00 97.2 70 18 151/100 (117) 93 11/29/16 00:58 98.7 63 20 175/72 (106) 99 11/28/16 20:16 98.8 98 16 141/64 (89) 99 11/28/16 19:33 94 21 11/28/16 17:54 96 11/28/16 16:23 98.3 68 20 107/54 (71) 96 General: Alert and Oriented, No acute distress Eye: EOMI Respiratory: Lungs CTA, Non-labored respirations, BS equal Cardiology: Normal rate Musculoskeletal: Swelling Neurologic: Alert, Oriented, Normal sensory Psychiatric: Cooperative Exam Comments ox 3, follows, articulate, eomi, vff, left hemiparesis 4_/5 with dystaxia Objective Micro and Labs Laboratory Tests Test 11/28/16 14:36 11/29/16 06:47 11/29/16 11:29 Blood Urea Nitrogen 42 35 Creatinine 1.17 0.89 Random Glucose 104 104 Calcium Level 8.7 8.4 Sodium Level 138 142 Potassium Level 5.9 4.6 Chloride Level 106 110 Carbon Dioxide Level 25.3 24.6 Anion Gap 7 7 Estimat Glomerular Filtration Rate 44 60 Total Protein 5.8 Albumin 2.5 Alkaline Phosphatase 397 Aspartate Amino Transf (AST/SGOT) 81 Alanine Aminotransferase (ALT/SGPT) 69 Total Bilirubin 0.4 Random Cortisol 1.7 White Blood Count 6.8 Red Blood Count 4.17 Hemoglobin 13.0 Hematocrit 39.1 Mean Corpuscular Volume 93.8 Mean Corpuscular Hemoglobin 31.2 Mean Corpuscular Hemoglobin Concent 33.3 Red Cell Distribution Width 15.4 Platelet Count 162 Mean Platelet Volume 8.3 Neutrophils (%) (Auto) 58.4 Lymphocytes (%) (Auto) 31.2 Monocytes (%) (Auto) 7.7 Eosinophils (%) (Auto) 2.0 Basophils (%) (Auto) 0.7 Neutrophils # (Auto) 4.0 Lymphocytes # (Auto) 2.1 Monocytes # (Auto) 0.5 Eosinophils # (Auto) 0.1 Basophils # (Auto) 0.0 CBC Comment DIFF FINAL Differential Comment Prothrombin Time 12.0 Prothromb Time International Ratio 1.1 Problem Qualifiers (1) HTN (hypertension): Qualified Codes: I10 - Essential (primary) hypertension (2) Breast cancer, left: Santos Wilder MD Nov 29, 2016 14:20
--- NOTE | 2016-11-29 14:57 | HHI.PR ---
Subjective Subjective Comments Patient awake and alert. Family at bedside. Denies any pain complaints. No shortness of breath noted. Allergies: Coded Allergies: amlodipine (Unverified Allergy, Severe, 11/26/16) atorvastatin (Unverified Allergy, Severe, 11/26/16) codeine (Unverified Allergy, Severe, nausea , 11/26/16) dimenhydrinate (Unverified Allergy, Severe, Confusion, 11/26/16) simvastatin (Unverified Allergy, Severe, 11/26/16) zolpidem (Unverified Allergy, Severe, Confusion, 11/26/16) Review of Systems All other ROS: ROS reviewed as documented in chart Exam I&O / VS Vital Signs Date Time Temp Pulse Resp B/P (MAP) Pulse Ox O2 Delivery O2 Flow Rate FiO2 11/29/16 14:17 64 11/29/16 12:53 97.5 66 20 135/63 (87) 97 11/29/16 08:53 97.9 64 20 152/106 (121) 99 11/29/16 06:00 97.2 70 18 151/100 (117) 93 11/29/16 00:58 98.7 63 20 175/72 (106) 99 11/28/16 20:16 98.8 98 16 141/64 (89) 99 11/28/16 19:33 94 21 11/28/16 17:54 96 11/28/16 16:23 98.3 68 20 107/54 (71) 96 General: No acute distress Cardiovascular: Normal rate Psychiatric: Cooperative, Appropriate mood & affect Orientation: oriented to Self, oriented to Place, oriented to Time, oriented to Situation Neurologic: EOM (tracks right and left), Speech (mild dysarthria but no word finding difficulties) Motor: Right Upper Extremity (5/5), Left Upper Extremity (4+/5), Right Lower Extremity (5/5), Left Lower Extremity (4+/5) Clonus: Negative Objective Micro and Labs Laboratory Tests Test 11/29/16 06:47 11/29/16 11:29 Blood Urea Nitrogen 35 Creatinine 0.89 Random Glucose 104 Total Protein 5.8 Albumin 2.5 Calcium Level 8.4 Alkaline Phosphatase 397 Aspartate Amino Transf (AST/SGOT) 81 Alanine Aminotransferase (ALT/SGPT) 69 Total Bilirubin 0.4 Sodium Level 142 Potassium Level 4.6 Chloride Level 110 Carbon Dioxide Level 24.6 Anion Gap 7 Estimat Glomerular Filtration Rate 60 Random Cortisol 1.7 White Blood Count 6.8 Red Blood Count 4.17 Hemoglobin 13.0 Hematocrit 39.1 Mean Corpuscular Volume 93.8 Mean Corpuscular Hemoglobin 31.2 Mean Corpuscular Hemoglobin Concent 33.3 Red Cell Distribution Width 15.4 Platelet Count 162 Mean Platelet Volume 8.3 Neutrophils (%) (Auto) 58.4 Lymphocytes (%) (Auto) 31.2 Monocytes (%) (Auto) 7.7 Eosinophils (%) (Auto) 2.0 Basophils (%) (Auto) 0.7 Neutrophils # (Auto) 4.0 Lymphocytes # (Auto) 2.1 Monocytes # (Auto) 0.5 Eosinophils # (Auto) 0.1 Basophils # (Auto) 0.0 CBC Comment DIFF FINAL Differential Comment Prothrombin Time 12.0 Prothromb Time International Ratio 1.1 Assessment and Plan Diagnosis: (1) CVA (cerebral vascular accident) ICD Codes: I63.9 - Cerebral infarction, unspecified Status: Acute Qualifiers: CVA mechanism: unspecified Qualified Codes: I63.9 - Cerebral infarction, unspecified Assessment 1. 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 Impaired mobility and ADLs due to above 3. COPD 4. Coronary artery disease 5. History of bladder cancer status post cystectomy 6. Neuroendocrine cancer 7. Arthritis Plan 1. Physical therapy as mobilizing and patient is now minimal assistance for transfers and minimal to moderate assistance to ambulate 20 feet with a rolling walker. Continue to progress anticipating that mobility should progress well 2. Occupational therapy is addressing ADLs and now contact guard for grooming. Continue to maximize independence 3. Speech therapy is evaluated swallow and tolerating mechanical soft diet with thin liquids. Monitor for signs and symptoms of aspiration 4. Patient receiving Lovenox for DVT prophylaxis 5. Anticipate patient will need ongoing inpatient rehabilitation and case management is addressing 6. Rehabilitation plan of care discussed with patient's family and questions answered Arcelia Garcia MD Nov 29, 2016 14:56
[2016-11-29] MEDS: SODIUM BICARBONATE 8.4% INJ 50 MEQ in SODIUM CHLOR 0.9% 1000 ML INJ 1,000 ML IV SCH (15:17)
[2016-11-29] MEDS: WARFARIN SOD 2.5 MG TAB PO SCH (15:18)
[2016-11-29] MEDS: BENZONATATE 100 MG CAP PO PRN (16:00)
--- NOTE | 2016-11-29 18:22 | HHI.PR ---
Subjective Remarks 86 YOWF with COPD,Ca Bladder and Breast Admitted with CVA Left side weakness improving Daughter at BS Objective Vital Signs Vital Signs Date Time Temp Pulse Resp B/P (MAP) Pulse Ox O2 Delivery O2 Flow Rate FiO2 11/29/16 14:17 64 11/29/16 12:53 97.5 66 20 135/63 (87) 97 11/29/16 08:53 97.9 64 20 152/106 (121) 99 11/29/16 06:00 97.2 70 18 151/100 (117) 93 11/29/16 00:58 98.7 63 20 175/72 (106) 99 11/28/16 20:16 98.8 98 16 141/64 (89) 99 11/28/16 19:33 94 21 I/O 11/28/16 11/28/16 11/28/16 11/29/16 11/29/16 11/29/16 07:00 15:00 23:00 07:00 15:00 23:00 Intake Total 660 ml Output Total 330 ml 850 ml Balance -330 ml 660 ml -850 ml Intake Oral 660 ml Output Urine Total 330 ml 850 ml # Bowel Movements 3 Result Diagram: 11/29/16 1129 11/29/16 0647 Objective Remarks GENERAL: MBMN WF,NAD SKIN: Warm and dry. HEAD: Normocephalic. EYES: No scleral icterus. No injection or drainage. NECK: Supple, trachea midline. No JVD or lymphadenopathy. CARDIOVASCULAR: Regular rate and rhythm without murmurs, gallops, or rubs. RESPIRATORY: Breath sounds equal bilaterally. No accessory muscle use. GASTROINTESTINAL: Abdomen soft, non-tender, nondistended. MUSCULOSKELETAL: No cyanosis, or edema. BACK: Nontender without obvious deformity. No CVA tenderness. A/P Assessment and Plan COPD CVA with left weakness H/O Ca breast H/O ca bladder S/P Cystectomy, PLAN: Aerosl nebs Stable on RA DW pt and her daughter DC Plans for [place]. Satish Calabrese MD Nov 29, 2016 18:22
[2016-11-29] MEDS ORDERED: guaiFENesin E.R. 600 MG TAB PO SCH (21:00)
[2016-12-18] MEDS ORDERED: WHEEMIS3 (13:42)
[2016-12-18] MEDS ORDERED: Rolling Walker (13:42)
== END 2016-11-29 16:57 | DRG 64 ==
LOC: NEPE 14:03 → NEDA 15:55 → NEDH 20:04 → N05A 22:31
PROVIDERS: ADMIT Specialist; ATTEND Specialist
DX: I63.511 Cerebral infarction due to unspecified occlusion or stenosis of right middle cerebral artery (principal); G93.40 Encephalopathy, unspecified; E87.2 Acidosis; G81.94 Hemiplegia, unspecified affecting left nondominant side; N02.9 Recurrent and persistent hematuria with unspecified morphologic changes; R13.10 Dysphagia, unspecified; E87.5 Hyperkalemia; J44.9 Chronic obstructive pulmonary disease, unspecified; C50.912 Malignant neoplasm of unspecified site of left female breast; E86.0 Dehydration; I10 Essential (primary) hypertension; E03.9 Hypothyroidism, unspecified; E78.5 Hyperlipidemia, unspecified; F41.9 Anxiety disorder, unspecified; I25.10 Atherosclerotic heart disease of native coronary artery without angina pectoris; R29.810 Facial weakness; R47.1 Dysarthria and anarthria; Z85.51 Personal history of malignant neoplasm of bladder; Z86.711 Personal history of pulmonary embolism; Z86.718 Personal history of other venous thrombosis and embolism; Z79.01 Long term (current) use of anticoagulants; Z95.1 Presence of aortocoronary bypass graft; Z95.2 Presence of prosthetic heart valve; Z17.0 Estrogen receptor positive status [ER+]
CPT/HCPCS: 70450; 70544; 70551; 71010; 74410; 80048; 80053; 80061; 82533; 82550; 83036; 84484; 85025; 85027; 85610; 85730; 93005; 93306; 93880; 94640; 94664; 95819; J1650; J2930; J7030; Q9967

== ENCOUNTER → 2016-12-12 | Outpatient (CLI) | payer MEDICARE ==
[~2016-12-12] MED LIST changes: +ANAS1 PO; +CHLORHEXIDINE GLUCONATE 2 % 1 PACK (2 CLOTHS) TOPICAL PRN; +COUM2.5T PO; +INSULIN HUMAN REGULAR 1,000 UNITS/10 ML VIAL SQ PRN; +IPRASOL NEB; +LACTATED RINGER'S 1000 ML INJ 1,000 ML ONE; +LACTATED RINGER'S 1000 ML IV PRN; +METOPROLOL TARTRATE 25 MG TAB PO PRN; +MSIR15 PO; +PANTOPRAZOLE SOD 40 MG DELAYED RELEASE TAB PO SCH; +POVIDONE IODINE 5% (ANTISEPSIS KIT) 4 APPLICATIONS EACH NARE PRN; -PRED10 PO; +Rolling Walker; +SODIUM CHLORID 0.9% 500 ML IV PRN; +WHEEMIS3
--- NOTE | 2016-12-12 13:03 | PD.PROCEDR ---
GI Procedure PROCEDURE PERFORMED Diagnostic EGD INDICATION FOR PROCEDURE Dysphagia, Zenker's diverticulum, hoarseness, PROCEDURE: The procedure, risks and benefits were discussed with Ms. Hill and informed consent was obtained. Anesthesia sedated her with Diprivan. She was placed in the left lateral decubitus position. EGD: The Pentax videoscope was introduced through the oropharynx and advanced to the second portion of the duodenum under direct visualization. Retroflexion was performed in the stomach. FINDINGS: The esophagus a very early and small Zenker's diverticulum was noted proximal to the upper esophageal sphincter and I doubt that this would be sufficient to contain food particles that may cause hoarseness and choking. The distal esophagus did show some linear erythema suggestive of reflux esophagitis nor biopsies were done due to coagulopathy The stomach this appeared to be unremarkable and within normal limits Duodenum this too appeared to be unremarkable ESTIMATED BLOOD LOSS: None SPECIMENS REMOVED: None COMPLICATIONS: None IMPRESSION: Reflux esophagitis Small early Zenker's diverticulum PLAN: Recommend Protonix 40 mg daily Recommend precautions when eating and swallowing Follow-up with GI in 3 weeks Doubt any need for any surgical or endoscopic treatment of Zenker's at this point Ollie Cohen MD Dec 12, 2016 13:03
[2016-12-12 13:08] VITALS: BP 147/67; PULSE 77; RESP 18; O2SAT 97
== END ==
LOC: HSDC 08:38
PROVIDERS: ATTEND Internal Medicine Gastroenterology
DX: K20.9 Esophagitis, unspecified (principal); K22.5 Diverticulum of esophagus, acquired; R13.10 Dysphagia, unspecified; J44.9 Chronic obstructive pulmonary disease, unspecified; I25.10 Atherosclerotic heart disease of native coronary artery without angina pectoris; Z79.01 Long term (current) use of anticoagulants; R63.3 Feeding difficulties; Z86.718 Personal history of other venous thrombosis and embolism; Z86.711 Personal history of pulmonary embolism; Z86.73 Personal history of transient ischemic attack (TIA), and cerebral infarction without residual deficits
CPT/HCPCS: 00740; 43235; J7120

== ENCOUNTER 2016-12-28 17:10 | Inpatient (IN) | payer MEDICARE ==
[~2016-12-28 17:10] MED LIST changes: +ATEN25TA PO; +BACI500O2 TOPICAL; -CHLORHEXIDINE GLUCONATE 2 % 1 PACK (2 CLOTHS) TOPICAL PRN; +COUM3TAB PO; +DOCU1CAP39 PO; -INSULIN HUMAN REGULAR 1,000 UNITS/10 ML VIAL SQ PRN; -LACTATED RINGER'S 1000 ML INJ 1,000 ML ONE; -LACTATED RINGER'S 1000 ML IV PRN; +LEVO25TA4 PO; -METOPROLOL TARTRATE 25 MG TAB PO PRN; +PANT40TA3 PO; -PANTOPRAZOLE SOD 40 MG DELAYED RELEASE TAB PO SCH; -POVIDONE IODINE 5% (ANTISEPSIS KIT) 4 APPLICATIONS EACH NARE PRN; -SODIUM CHLORID 0.9% 500 ML IV PRN; +SYNT112T PO; +ULTR50TA5 PO; +VENTAER INH
[2016-12-28 17:14] VITALS: BP 188/86; PULSE 81; RESP 16; TEMP 98.5; O2SAT 96
[2016-12-28 18:30] VITALS: BP 200/87; PULSE 76; RESP 16; O2SAT 98
[2016-12-28 18:45] VITALS: BP 203/88; PULSE 80; RESP 16; O2SAT 98
--- NOTE | 2016-12-28 18:47 | PD ---
HPI Chief Complaint: Neuro Symptoms/ Deficits Time Seen by Provider: 17:57 Travel History International Travel<30 days: No Contact w/Intl Traveler<30days: No Traveled to known affect area: No History of Present Illness HPI Family brings this patient in complaining of left arm weakness and fatigue and malaise. She had a recent stroke and went to rehabilitation. She had prominent left arm weakness along with speech problems and facial droop. She for the most part recovered from her stroke including normal left arm function and normal speech but had mild residual droop. Over the last 48 hours she's had a gradual worsening until now she can no longer use her left arm. She is now having problems with speech slurring and aphasia. Her droop has worsened according to family. Symptoms moderately severe. No alleviating factors. Duration 2 days. She is well out of TPA window. No exacerbating factors. It started taking Coumadin for history of DVT/PE/CVA PFSH Past Medical History Hx Anticoagulant Therapy: Yes Arthritis: Yes (OSTEO ARTHRITIS) Asthma: Yes Blood Disorders: No Anxiety: Yes Depression: Yes Heart Rhythm Problems: No Cancer: Yes (BREAST, BLADDER, BOWEL AND LYMPHNODES @ BOTTOM AORTA) Cardiovascular Problems: Yes High Cholesterol: Yes Chemotherapy: No Chest Pain: No Congestive Heart Failure: No COPD: Yes Cerebrovascular Accident: Yes (11/29/16) Coronary Artery Disease: Yes Diabetes: No Endocrine: No GERD: No Genitourinary: Yes (BOWEL AND BLADDER CA) Headaches: Yes (RECENT HEADACHES THAT START IN NECK AND GO UP THE BACK OF HEAD) Hepatitis: No Hiatal Hernia: No Hypertension: Yes Immune Disorder: No Kidney Stones: No Musculoskeletal: No Neurologic: Yes (RECENT STROKE) Psychiatric: No Reproductive: No Respiratory: Yes (COPD / SOB) Migraines: No Radiation Therapy: Yes (BREAST ( SEED IMPLANT)) Renal Failure: No Seizures: No Sleep Apnea: No Thyroid Disease: Yes Ulcer: No Tetanus Vaccination: Unknown Influenza Vaccination: Yes Menopausal: Yes Past Surgical History Abdominal Surgery: Yes (HYSTECTOMY AND CHOLECYSTECTOMY / BLADDER AND BOWEL CA) AICD: No Appendectomy: Yes Arteriovenous Shunt: No Body Medical Devices: N/A Cardiac Surgery: Yes (CARDIAC CATH / ENLARGED LYMPHNODES AT BOTTOM OF AORTA) Cholecystectomy: Yes Ear Surgery: No Endocrine Surgery: No Genitourinary Surgery: Yes (BLADDER AND BOWEL CA) Gynecologic Surgery: Yes (HYSTERCTOMY) Hysterectomy: Yes Insulin Pump: No Joint Replacement: No Oral Surgery: Yes (EXTRACTIONS) Pacemaker: No Thoracic Surgery: Yes (ESOPHAGUS STRETCHED SEVERAL TIMES) Tonsillectomy: Yes Other Surgery: Yes (BREAST, BOWEL AND BLADDER CA / HYSTERCTOMY. CHOLESYTECTOMY AND ENLARGED LYM) Social History Alcohol Use: No Tobacco Use: No Substance Use: No Allergies-Medications (Allergen,Severity, Reaction): Coded Allergies: amlodipine (Verified Allergy, Severe, 12/28/16) atorvastatin (Verified Allergy, Severe, 12/28/16) codeine (Verified Allergy, Severe, nausea , 12/28/16) dimenhydrinate (Verified Allergy, Severe, Confusion, 12/28/16) simvastatin (Verified Allergy, Severe, 12/28/16) zolpidem (Verified Allergy, Severe, Confusion, 12/28/16) cephalexin (Verified Allergy, Intermediate, Rash, 12/28/16) Reported Meds & Prescriptions Reported Meds & Active Scripts Active Bacitracin Topical 500 Unit/Gm Oint 1 Applic TOPICAL Q12HR 7 Days Synthroid (Levothyroxine Sodium) 112 Mcg Tab 112 Mcg PO DAILY@0600 30 Days Levothyroxine (Levothyroxine Sodium) 25 Mcg Tab 25 Mcg PO DAILY@0600 30 Days Pantoprazole (Pantoprazole Sodium) 40 Mg Tab 40 Mg PO DAILY 30 Days Dok (Docusate Sodium) 100 Mg Cap 100 Mg PO BID 60 Days Ultram (Tramadol HCl) 50 Mg Tab 25 Mg PO Q8HR PRN Morphine IR (Morphine Sulfate) 15 Mg Tab 15 Mg PO Q8HR PRN monitor for lethargy goal to avoid long-term narcotics Atenolol 25 Mg Tab 25 Mg PO DAILY 30 Days check Blood pressure prior to taking medication Coumadin (Warfarin) 3 Mg Tab 4 Mg PO DAILY@1600 30 Days check INR Friday, Friday, Friday, Friday report results to PCP Ventolin Hfa 18 GM Inh (Albuterol Sulfate) 90 Mcg/Act Aer 2 Puff INH Q6H PRN 30 Days Arimidex (Anastrozole) 1 Mg Tab 1 Mg PO DAILY Lisinopril 20 Mg Tab 20 Mg PO Q12HR 30 Days check Blood pressure prior to taking medication Symbicort Inh (Budesonide/Formoterol Fumarate) 80-4.5 Mcg/Act Aero 2 Puff INH Q12HR 30 Days Paroxetine (Paroxetine HCl) 30 Mg Tab 30 Mg PO DAILY Benzonatate 100 Mg Cap 100 Mg PO Q12HR PRN Vitamin D3 (Cholecalciferol) 1,000 Unit Tab 2,000 Units PO DAILY Pravastatin 10 Mg Tab 10 Mg PO HS Singulair (Montelukast Sodium) 10 Mg Tab 10 Mg PO HS Mirtazapine 45 Mg Tab 45 Mg PO HS [Rolling Walker] Each Wheelchair (Device) 1 Mis Mis Ea .ROUTE DIRECTED [guaiFENesin ER] 600 MG Tabcr 600 Mg PO BID Coumadin (Warfarin) 2.5 Mg Tab 2.5 Mg PO DAILY@16 Lovenox Inj (Enoxaparin Sodium) 40 Mg/0.4 Ml Syr 40 Mg SQ Q12HR Duoneb (Ipratropium-Albuterol Neb) 0.5-2.5 Mg/3 Ml Neb 1 Ampule NEB QID NEB Hydralazine HCl 25 Mg Tablet 25 Mg PO Q8HR 30 Days Reported Morphine IR (Morphine Sulfate) 15 Mg Tab 15 Mg PO Q4H PRN Morphine ER (Morphine Sulfate) 15 Mg Tab 15 Mg PO Q6HR Levothyroxine (Levothyroxine Sodium) 150 Mcg Tab 150 Mcg PO DAILY Atenolol 50 Mg Tab 50 Mg PO DAILY Review of Systems General / Constitutional: No: Fever Eyes: No: Visual changes HENT: Positive: Headaches Cardiovascular: No: Chest Pain or Discomfort Respiratory: No: Shortness of Breath Gastrointestinal: No: Abdominal Pain Genitourinary: No: Dysuria Musculoskeletal: Positive: Weakness, No: Pain Skin: No Rash Neurologic: Positive: Weakness, Slurred Speech Psychiatric: No: Depression Endocrine: No: Polydipsia Hematologic/Lymphatic: No: Easy Bruising Physical Exam Narrative GENERAL: Well-nourished, well-developed patient in no apparent distress. SKIN: Focused skin assessment reveals no rash and nodules. Skin is Warm and dry. HEAD: Atraumatic. Normocephalic. EYES: Pupils equal and round. No scleral icterus. No injection or drainage. ENT: No nasal bleeding or discharge. Mucous membranes pink and moist. NECK: Trachea midline. No JVD. CARDIOVASCULAR: Regular rate and rhythm. No murmur appreciated. RESPIRATORY: No accessory muscle use. Clear to auscultation. Breath sounds equal bilaterally. GASTROINTESTINAL: Abdomen soft, non-tender, nondistended. Hepatic and splenic margins not palpable. MUSCULOSKELETAL: No obvious deformities. No clubbing. No cyanosis. No edema. NEUROLOGICAL: Awake and alert. Has a left-sided facial droop. Slight aphasia and slurring. Her speech is understandable. She can wiggle the fingers of her left hand but has very seen if weakness of the left arm and hand. Good strength of the right arm and leg seem symmetric PSYCHIATRIC: Appropriate mood and affect; insight and judgment normal. Data Data Last Documented VS Vital Signs Date Time Temp Pulse Resp B/P (MAP) Pulse Ox O2 Delivery O2 Flow Rate FiO2 12/28/16 18:45 80 16 203/88 (126) 98 Room Air 12/28/16 17:14 98.5 Orders Orders Urinalysis - C+S If Indicated (12/28/16 17:37) [facility] Medical Decision Making Medical Screen Exam Complete: Yes Emergency Medical Condition: Yes Medical Record Reviewed: Yes Differential Diagnosis Intracranial hemorrhage, ischemic CVA, TIA Narrative Course I have reviewed the patient's electronic medical record. I'm ordering a neurologic workup on her to include labs and EKG and CT of brain. Her blood pressure is elevated but in the face of suspected/possible/ likely ischemic stroke we will observe closely and treat if over 220 systolic. When he give her something for her headache. Case will be checked out to oncoming physician to assist with disposition. Rigo Maldonado MD Dec 28, 2016 18:47
[2016-12-28] MEDS ORDERED: SODIUM CHLORIDE 0.9% FLUSH 10 ML FLUSH IVF PRN ×2 (19:00)
[2016-12-28] MEDS ORDERED: MORPHINE SULFATE 4 MG/ML INJ IV PUSH ONE ×2 (19:00)
[2016-12-28] MEDS ORDERED: ONDANSETRON HCL 4 MG/2 ML VIAL IVP ONE ×2 (19:00)
[2016-12-28 19:06] VITALS: O2SAT 98
[2016-12-28 19:16] LABS: BASOPHIL # 0.1 TH/MM3 (0-0.2); BASOPHIL % 1.4 % (0.0-2.0); EOSINOPHIL # 0.2 TH/MM3 (0-0.4); EOSINOPHIL % 4.3 % (0.0-4.0); HEMATOCRIT 41.1 % (35.0-46.0); HEMOGLOBIN 13.4 GM/DL (11.6-15.3); LYMPH % 38.8 % (9.0-44.0); LYMPHOCYTE # 1.8 TH/MM3 (1.0-4.8); MEAN CELL VOLUME 92.2 FL (80.0-100.0); MEAN CORPUSCULAR HEMOGLOBIN 30.1 PG (27.0-34.0); MEAN CORPUSCULAR HGB CONC 32.6 % (32.0-36.0); MEAN PLATELET VOLUME 9.6 FL (7.0-11.0); MONO % 11.9 % (0.0-8.0); MONOCYTE # 0.5 TH/MM3 (0-0.9); NEUT % 43.6 % (16.0-70.0); PLATELET COUNT 162 TH/MM3 (150-450); RED BLOOD COUNT 4.46 MIL/MM3 (4.00-5.30); WHITE BLOOD COUNT 4.6 TH/MM3 (4.0-11.0)
[2016-12-28 19:18] LABS: BACTERIA, URINE RARE /hpf; BILIRUBIN, URINE NEG (NEG); BLOOD, URINE SMALL (NEG); GLUCOSE,URINE NEG (NEG); KETONE, URINE NEG (NEG); MUCUS URINE FEW /lpf (OCC); NITRITE,URINE NEG (NEG); PH, URINE 6.5 (5.0-8.5); URINE COLOR YELLOW (YELLW/STRAW); URINE LEUKOCYTE ESTERASE NEG (NEG)
[2016-12-28 19:32] VITALS: BP 176/95
[2016-12-28 19:41] LABS: INTERNATIONAL NORMALIZED RATIO 2.9 RATIO; PROTHROMBIN TIME - PATIENT 34.1 SEC (9.8-11.6)
--- NOTE | 2016-12-28 19:48 | PD ---
Physical Exam Narrative Received sign out from previous team to follow up CT scan and admit. Please see prior provider's notes for details. 86yo F with recent CVA 11/2016 and was in rehab and said her left side weakness was pretty much resolved and she still has a slight left facial droop. However , for the last 48 hours, she started having progressive weakness in left arm and leg. States she has intermittent numbness. Facial droop has not changed. Pt is on coumadin for DVT/PE/CVA. Labs reviewed, no leukocytosis. UA showed WBC 23. Rare bacteria. Culture indicated. Will treat. Pt was given morphine 2mg and zofran 4mg IV for slight headache. BP is now 176/95. Will allow permissive hypertensive. Neuro exam showed residual left sided facial droop. LUE strength is 2/5. LLE 3/5. RLE 3/5. RUE: 4/5. CT brain negative. Labs reviewed, no leukocytosis. Glucose mildly elevated at 137. INR therapeutic at 2.9. Discussed with hospitalist and admitted to her service. Data Data Last Documented VS Vital Signs Date Time Temp Pulse Resp B/P (MAP) Pulse Ox O2 Delivery O2 Flow Rate FiO2 12/28/16 19:32 176/95 (122) 12/28/16 19:06 98 Room Air 12/28/16 18:45 80 16 12/28/16 17:14 98.5 Orders Orders Urinalysis - C+S If Indicated (12/28/16 17:37) Prothrombin Time / Inr (Pt) (12/28/16 18:54) Complete Blood Count With Diff (12/28/16 18:54) Basic Metabolic Panel (Bmp) (12/28/16 18:54) Ct Brain W/O Iv Contrast(Rout) (12/28/16 18:54) Ecg Monitoring (12/28/16 18:54) Iv Access Insert/Monitor (12/28/16 18:54) Oximetry (12/28/16 18:54) Blood Glucose (12/28/16 18:54) Morphine Inj (Morphine Inj) (12/28/16 19:00) Ondansetron Inj (Zofran Inj) (12/28/16 19:00) Sodium Chloride 0.9% Flush (Ns Flush) (12/28/16 19:00) Urine Culture (12/28/16 18:45) Ciprofloxacin 400 Mg Premix (Cipro 400 M (12/28/16 20:00) Admit Order (Ed Use Only) (12/28/16 21:32) Labs Laboratory Tests Test 12/28/16 18:45 White Blood Count 4.6 TH/MM3 Red Blood Count 4.46 MIL/MM3 Hemoglobin 13.4 GM/DL Hematocrit 41.1 % Mean Corpuscular Volume 92.2 FL Mean Corpuscular Hemoglobin 30.1 PG Mean Corpuscular Hemoglobin Concent 32.6 % Red Cell Distribution Width 15.0 % Platelet Count 162 TH/MM3 Mean Platelet Volume 9.6 FL Neutrophils (%) (Auto) 43.6 % Lymphocytes (%) (Auto) 38.8 % Monocytes (%) (Auto) 11.9 % Eosinophils (%) (Auto) 4.3 % Basophils (%) (Auto) 1.4 % Neutrophils # (Auto) 2.0 TH/MM3 Lymphocytes # (Auto) 1.8 TH/MM3 Monocytes # (Auto) 0.5 TH/MM3 Eosinophils # (Auto) 0.2 TH/MM3 Basophils # (Auto) 0.1 TH/MM3 CBC Comment DIFF FINAL Differential Comment Prothrombin Time 34.1 SEC Prothromb Time International Ratio 2.9 RATIO Urine Color YELLOW Urine Turbidity CLEAR Urine pH 6.5 Urine Specific [place] 1.012 Urine Protein TRACE mg/dL Urine Glucose (UA) NEG mg/dL Urine Ketones NEG mg/dL Urine Occult Blood SMALL Urine Nitrite NEG Urine Bilirubin NEG Urine Urobilinogen LESS THAN 2.0 MG/DL Urine Leukocyte Esterase NEG Urine RBC 6 /hpf Urine WBC 23 /hpf Urine Bacteria RARE /hpf Urine Mucus FEW /lpf Microscopic Urinalysis Comment CULTURE INDICATED Blood Urea Nitrogen 17 MG/DL Creatinine 0.82 MG/DL Random Glucose 137 MG/DL Calcium Level 8.4 MG/DL Sodium Level 142 MEQ/L Potassium Level 4.6 MEQ/L Chloride Level 109 MEQ/L Carbon Dioxide Level 28.5 MEQ/L Anion Gap 5 MEQ/L Estimat Glomerular Filtration Rate 66 ML/MIN [facility] Supervised Visit with FÁTIMA: Ifrah Medina DO Dec 28, 2016 19:48
[2016-12-28 19:55] LABS: BICARBONATE 28.5 MEQ/L (21.0-32.0); CALCIUM 8.4 MG/DL (8.5-10.1); CREATININE 0.82 MG/DL (0.50-1.00)
[2016-12-28] MEDS ORDERED: CIPROFLOXACIN 400 MG PREMIX 200 ML IV ONE ×2 (20:00)
--- NOTE | 2016-12-28 20:04 | RADRPT ---
EXAM DATE/TIME: 12/28/2016 19:42 [place] COMPARISON: No previous studies available for comparison. INDICATIONS : Decreased motor function and speech abilities since stroke 1 month ago. RADIATION DOSE: 56.42 CTDIvol (mGy) MEDICAL HISTORY : Cardiovascular disease. Hypertension. Stroke.Bladder cancer. Bone cancer. SURGICAL HISTORY : Appendectomy. Cholecystectomy.Hysterectomy. ENCOUNTER: Initial ACUITY: 1 day PAIN SCALE: 0/10 LOCATION: cranial TECHNIQUE: Multiple contiguous axial images were obtained of the head. Using automated exposure control and adj ustment of the mA and/or kV according to patient size, radiation dose was kept as low as reasonably a chievable to obtain optimal diagnostic quality images. DICOM format image data is available electro nically for review and comparison. FINDINGS: The ventricles and cisterns are of normal size and configuration. No hemorrhage or mass. There are ca lcifications of the vertebral and carotid arteries. Patchy and confluent areas of decreased density i n the bilateral subcortical white matter, centrum semiovale and periventricular white matter identifi ed and characteristic of chronic microvascular ischemic disease. No fractures. CONCLUSION: No acute disease. Alonzo Mansfield MD on December 28, 2016 at 20:01 Board Certified Radiologist. This report was verified electronically.
[2016-12-28] MEDS ORDERED: DEXTROSE 50% IN WATER 50 ML VIAL(D50) IV PUSH PRN (22:15)
[2016-12-28] MEDS ORDERED: SODIUM CHLORIDE 0.9% FLUSH 5 ML FLUSH IV FLUSH PRN ×2 (22:15)
[2016-12-28] MEDS ORDERED: GLUCAGON 1 MG/ML VIAL OTHER PRN ×2 (22:15)
[2016-12-28] MEDS ORDERED: ZOFR4TAB PO ×2 (23:33)
[2016-12-28] MEDS ORDERED: LEVO137T2 PO ×2 (23:33)
[2016-12-28] MEDS ORDERED: ATEN25TA PO ×2 (23:33)
[2016-12-29] VITALS (11 sets, daily range): BP systolic 132–187; BP diastolic 60–80; PULSE 63–92; RESP 16–18; TEMP 97.4–98.1; O2SAT 94–98
--- NOTE | 2016-12-29 01:39 | HHI.HP ---
[facility] Arnie Trevizo MD Admission Diagnosis CVA Diagnoses: Travel History International Travel<30 Days: No Contact w/Intl Traveler <30 Da: No Traveled to Known Affected Are: No History of Present Illness 86-year-old female with a past medical history significant for CVA in November of this year presents with a 2 day history of left upper and lower extremity numbness and weakness. The patient states that she just left rehabilitation approximately 5 days ago. She is having word finding difficulty, unclear if this is baseline. She has a left-sided facial droop that is mild. Per previous notes this is residual and is unchanged. She is on Coumadin for DVT/PE /CVA. Laboratory values were unremarkable but UA was significant for UTI. INR therapeutic at 2.9. The patient denies any pain but states she continues to have numbness in her left upper and lower extremities. 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 Bladder cancer status post cystectomy Breast cancer with recent lymph node biopsy and lumpectomy Recurrent DVT/PE Past Surgical History Obtained from medical records Appendectomy AVR and single-vessel CABG in 2009 Cholecystectomy Cystectomy with ileal conduit EGD with dilation Tonsillectomy Lymph node removal Bowel resection Lumpectomy of left breast Reported Medications Reported Meds & Active Scripts Active Bacitracin Topical 500 Unit/Gm Oint 1 Applic TOPICAL Q12HR 7 Days Synthroid (Levothyroxine Sodium) 112 Mcg Tab 112 Mcg PO DAILY@0600 30 Days Levothyroxine (Levothyroxine Sodium) 25 Mcg Tab 25 Mcg PO DAILY@0600 30 Days Pantoprazole (Pantoprazole Sodium) 40 Mg Tab 40 Mg PO DAILY 30 Days Dok (Docusate Sodium) 100 Mg Cap 100 Mg PO BID 60 Days Ultram (Tramadol HCl) 50 Mg Tab 25 Mg PO Q8HR PRN Morphine IR (Morphine Sulfate) 15 Mg Tab 15 Mg PO Q8HR PRN monitor for lethargy 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 Atenolol 25 Mg Tab 25 Mg PO DAILY 30 Days check Blood pressure prior to taking medication Coumadin (Warfarin) 3 Mg Tab 4 Mg PO DAILY@1600 30 Days check INR Friday, Friday, Friday, Friday report results to PCP Ventolin Hfa 18 GM Inh (Albuterol Sulfate) 90 Mcg/Act Aer 2 Puff INH Q6H PRN 30 Days Arimidex (Anastrozole) 1 Mg Tab 1 Mg PO DAILY Lisinopril 20 Mg Tab 20 Mg PO Q12HR 30 Days check Blood pressure prior to taking medication Symbicort Inh (Budesonide/Formoterol Fumarate) 80-4.5 Mcg/Act Aero 2 Puff INH Q12HR 30 Days Paroxetine (Paroxetine HCl) 30 Mg Tab 30 Mg PO DAILY Benzonatate 100 Mg Cap 100 Mg PO Q12HR PRN Vitamin D3 (Cholecalciferol) 1,000 Unit Tab 2,000 Units PO DAILY Pravastatin 10 Mg Tab 10 Mg PO HS Singulair (Montelukast Sodium) 10 Mg Tab 10 Mg PO HS Mirtazapine 45 Mg Tab 45 Mg PO HS [Rolling Walker] Each Wheelchair (Device) 1 Mis Mis Ea .ROUTE DIRECTED [guaiFENesin ER] 600 MG Tabcr 600 Mg PO BID Coumadin (Warfarin) 2.5 Mg Tab 2.5 Mg PO DAILY@16 Lovenox Inj (Enoxaparin Sodium) 40 Mg/0.4 Ml Syr 40 Mg SQ Q12HR Duoneb (Ipratropium-Albuterol Neb) 0.5-2.5 Mg/3 Ml Neb 1 Ampule NEB QID NEB Hydralazine HCl 25 Mg Tablet 25 Mg PO Q8HR 30 Days Reported Zofran (Ondansetron HCl) 4 Mg Tab 4 Mg PO Q6HR PRN Levothyroxine (Levothyroxine Sodium) 137 Mcg Tab 137 Mcg PO DAILY Atenolol 25 Mg Tab 25 Mg PO DAILY Morphine IR (Morphine Sulfate) 15 Mg Tab 15 Mg PO Q4H PRN Morphine ER (Morphine Sulfate) 15 Mg Tab 15 Mg PO Q6HR Allergies: Coded Allergies: amlodipine (Verified Allergy, Severe, 12/28/16) atorvastatin (Verified Allergy, Severe, 12/28/16) codeine (Verified Allergy, Severe, nausea , 12/28/16) dimenhydrinate (Verified Allergy, Severe, Confusion, 12/28/16) simvastatin (Verified Allergy, Severe, 12/28/16) zolpidem (Verified Allergy, Severe, Confusion, 12/28/16) cephalexin (Verified Allergy, Intermediate, Rash, 12/28/16) Family History Noncontributory Social History Nonsmoker, nondrinker, no illicit drugs. Physical Exam Vital Signs Vital Signs Date Time Temp Pulse Resp B/P (MAP) Pulse Ox O2 Delivery O2 Flow Rate FiO2 12/29/16 00:25 98.0 74 18 139/69 (92) 97 12/28/16 22:30 12/28/16 19:32 176/95 (122) 12/28/16 19:06 98 Room Air 12/28/16 18:45 80 16 203/88 (126) 98 Room Air 12/28/16 18:30 76 16 200/87 (124) 98 Room Air 12/28/16 17:47 18 98 Room Air 12/28/16 17:14 98.5 81 16 188/86 (120) 96 Physical Exam GENERAL: Elderly white female lying in bed SKIN: No rashes, ecchymoses or lesions. Cool and dry. HEAD: Atraumatic. Normocephalic. No temporal or scalp tenderness. EYES: Pupils reactive but sluggish. Extraocular motions intact. No scleral icterus. No injection or drainage. ENT: Nose without bleeding, purulent drainage or septal hematoma. Throat without erythema, tonsillar hypertrophy or exudate. Uvula midline. Airway patent. NECK: Trachea midline. No JVD or lymphadenopathy. Supple, nontender, no meningeal signs. CARDIOVASCULAR: Regular rate and rhythm with harsh systolic ejection murmur. RESPIRATORY: Clear to auscultation. Breath sounds equal bilaterally. No wheezes , rales, or rhonchi. GASTROINTESTINAL: Abdomen soft, non-tender, nondistended. No hepato-splenomegaly , or palpable masses. No guarding. MUSCULOSKELETAL: Extremities without clubbing, cyanosis, or edema. No joint tenderness, effusion, or edema noted. NEUROLOGICAL: Able to follow commands. Word finding difficulties. A&O 3. Left sheet metal superintendent strength 1/5, right sheet metal superintendent strength 3/5. Left shoulder strength 2/5. Biceps/triceps 3/5 on the left. Mild left-sided facial droop. Laboratory Laboratory Tests Test 12/28/16 18:45 White Blood Count 4.6 Red Blood Count 4.46 Hemoglobin 13.4 Hematocrit 41.1 Mean Corpuscular Volume 92.2 Mean Corpuscular Hemoglobin 30.1 Mean Corpuscular Hemoglobin Concent 32.6 Red Cell Distribution Width 15.0 Platelet Count 162 Mean Platelet Volume 9.6 Neutrophils (%) (Auto) 43.6 Lymphocytes (%) (Auto) 38.8 Monocytes (%) (Auto) 11.9 Eosinophils (%) (Auto) 4.3 Basophils (%) (Auto) 1.4 Neutrophils # (Auto) 2.0 Lymphocytes # (Auto) 1.8 Monocytes # (Auto) 0.5 Eosinophils # (Auto) 0.2 Basophils # (Auto) 0.1 CBC Comment DIFF FINAL Differential Comment Prothrombin Time 34.1 Prothromb Time International Ratio 2.9 Urine Color YELLOW Urine Turbidity CLEAR Urine pH 6.5 Urine Specific [place] 1.012 Urine Protein TRACE Urine Glucose (UA) NEG Urine Ketones NEG Urine Occult Blood SMALL Urine Nitrite NEG Urine Bilirubin NEG Urine Urobilinogen LESS THAN 2.0 Urine Leukocyte Esterase NEG Urine RBC 6 Urine WBC 23 Urine Bacteria RARE Urine Mucus FEW Microscopic Urinalysis Comment CULTURE INDICATED Blood Urea Nitrogen 17 Creatinine 0.82 Random Glucose 137 Calcium Level 8.4 Sodium Level 142 Potassium Level 4.6 Chloride Level 109 Carbon Dioxide Level 28.5 Anion Gap 5 Estimat Glomerular Filtration Rate 66 Date/Time Source Procedure Growth Status 12/28/16 18:45 Urine Clean Catch Urine Culture Pending Received Result Diagram: 12/28/16184412/28/161844 Caprini VTE Risk Assessment Caprini VTE Risk Assessment: Mod/High Risk (score >= 2) Caprini Risk Assessment Model Point Value = 1 Point Value = 2 Point Value = 3 Point Value = 5 Age 41-60 Minor surgery BMI > 25 kg/m2 Swollen legs Varicose veins or History of unexplained or recurrent spontaneous Oral contraceptives or hormone replacement Sepsis (< 1 month) Serious lung disease, including pneumonia (< 1 month) Abnormal pulmonary function Acute myocardial infarction Congestive heart failure (< 1 month) History of inflammatory bowel disease Medical patient at bed rest Age 61-74 Arthroscopic surgery Major open surgery (> 45 min) Laparoscopic surgery (> 45 min) Malignancy Confined to bed (> 72 hours) Immobilizing plaster cast Central venous access Age >= 75 History of VTE Family history of VTE Factor V Leiden Prothrombin [id number] Lupus anticoagulant Anticardiolipin antibodies Elevated serum homocysteine Heparin-induced thrombocytopenia Other congenital or acquired thrombophilia Stroke (< 1 month) Elective arthroplasty Hip, pelvis, or leg fracture Acute spinal cord injury (< 1 month) Prophylaxis Regimen Total Risk Factor Score Risk Level Prophylaxis Regimen 0-1 Low Early ambulation 2 Moderate Order ONE of the following: *Sequential Compression Device (SCD) *Heparin 5000 units SQ BID 3-4 Higher Order ONE of the following medications: *Heparin 5000 units SQ TID *Enoxaparin/Lovenox 40 mg SQ daily (WT < 150 kg, CrCl > 30 mL/min) *Enoxaparin/Lovenox 30 mg SQ daily (WT < 150 kg, CrCl > 10-29 mL/min) *Enoxaparin/Lovenox 30 mg SQ BID (WT < 150 kg, CrCl > 30 mL/min) AND/OR *Sequential Compression Device (SCD) 5 or more Highest Order ONE of the following medications: *Heparin 5000 units SQ TID (Preferred with Epidurals) *Enoxaparin/Lovenox 40 mg SQ daily (WT < 150 kg, CrCl > 30 mL/min) *Enoxaparin/Lovenox 30 mg SQ daily (WT < 150 kg, CrCl > 10-29 mL/min) *Enoxaparin/Lovenox 30 mg SQ BID (WT < 150 kg, CrCl > 30 mL/min) AND *Sequential Compression Device (SCD) Assessment and Plan Assessment and Plan 86-year-old female with history of a CVA in November presents with a 2 day history of left upper and lower extremity weakness and numbness and increasing facial droop per her family. 1. TIA/CVA CT head showed no acute bleed or acute infarction MRI brain pending Neurology consulted, appreciate assistance Permissive hypertension Nothing by mouth until evaluated by speech therapy Head of bed flat 2. UTI Urine culture pending Cipro IV 3. COPD Resume Symbicort Duo nebs 4. History of DVT and PE Continue Coumadin 5. Hypertension Hold home medications at this time for permissive hypertension Treatment if BP greater than 220 systolic FEN Nothing by mouth until evaluated by speech therapy as patient has a history of coughing with by mouth intake Normal saline at 50 cc/hour Electrolytes: Monitor and replete when necessary Coumadin Dolly Aguilar MD Dec 29, 2016 01:39
[2016-12-29] MEDS: SODIUM CHLOR 0.9% 1000 ML INJ 1,000 ML IV SCH ×4 (01:45→22:50)
[2016-12-29] MEDS: LEVOTHYROXINE SODIUM 25 MCG TAB PO SCH ×2 (06:00)
[2016-12-29] MEDS: LEVOTHYROXINE SODIUM 112 MCG TAB PO SCH ×2 (06:00)
[2016-12-29] MEDS: RESP: ALBUTEROL 2.5 MG/IPRATROPIUM 0.5 MG NEB (SCH) NEB ×8 (07:09→20:40)
[2016-12-29] MEDS ORDERED: CIPROFLOXACIN 400 MG PREMIX 200 ML IV SCH ×2 (08:00)
[2016-12-29] MEDS: INSULIN ASPART SUPPLEMENTAL SCALE SQ SCH ×8 (08:00→21:45)
[2016-12-29 08:20] LABS: AUTOMATED NEUTROPHIL # 1.8 TH/MM3 (1.8-7.7); BASOPHIL % 1.2 % (0.0-2.0); EOSINOPHIL # 0.1 TH/MM3 (0-0.4); EOSINOPHIL % 3.3 % (0.0-4.0); HEMATOCRIT 40.8 % (35.0-46.0); HEMOGLOBIN 13.3 GM/DL (11.6-15.3); LYMPH % 40.9 % (9.0-44.0); LYMPHOCYTE # 1.7 TH/MM3 (1.0-4.8); MEAN CELL VOLUME 91.3 FL (80.0-100.0); MEAN CORPUSCULAR HEMOGLOBIN 29.9 PG (27.0-34.0); MEAN CORPUSCULAR HGB CONC 32.7 % (32.0-36.0); MEAN PLATELET VOLUME 9.1 FL (7.0-11.0); MONO % 10.3 % (0.0-8.0); MONOCYTE # 0.4 TH/MM3 (0-0.9); NEUT % 44.3 % (16.0-70.0); PLATELET COUNT 143 TH/MM3 (150-450); RED BLOOD COUNT 4.47 MIL/MM3 (4.00-5.30); RED CELL DISTRIBUTION WIDTH 14.8 % (11.6-17.2); WHITE BLOOD COUNT 4.2 TH/MM3 (4.0-11.0)
[2016-12-29 08:28] LABS: INTERNATIONAL NORMALIZED RATIO 3.2 RATIO; PROTHROMBIN TIME - PATIENT 36.8 SEC (9.8-11.6)
[2016-12-29 08:50] LABS: BICARBONATE 28.5 MEQ/L (21.0-32.0); BLOOD UREA NITROGEN 16 MG/DL (7-18); CALCIUM 8.4 MG/DL (8.5-10.1); CHLORIDE 107 MEQ/L (98-107); CHOLESTEROL 141 MG/DL (120-200); CHOLESTEROL/ HDL RATIO 2.62 RATIO; CREATININE 0.74 MG/DL (0.50-1.00); GLOMERULAR FILTRATION RATE 75 ML/MIN (>89); GLUCOSE,RANDOM 100 MG/DL (74-106); HDL CHOLESTEROL 53.7 MG/DL (40.0-60.0); LDL CHOLESTEROL 74 MG/DL (0-99); SODIUM (NA) 143 MEQ/L (136-145); TRIGLYCERIDES 67 MG/DL (42-150)
[2016-12-29] MEDS: BUDESONIDE-FORMOTEROL 80/4.5 MCG INHALER INH SCH ×4 (09:00→21:45)
[2016-12-29] MEDS: ANASTROZOLE 1 MG TAB PO SCH ×2 (09:00)
[2016-12-29] MEDS: PARoxetine HCL 20 MG TAB PO SCH ×2 (09:00)
[2016-12-29] MEDS: SODIUM CHLORIDE 0.9% FLUSH 5 ML FLUSH IV FLUSH SCH ×4 (09:00→22:50)
[2016-12-29] MEDS ORDERED: PANTOPRAZOLE SOD 40 MG DELAYED RELEASE TAB PO SCH ×2 (09:00)
[2016-12-29] MEDS: DOCUSATE SODIUM 100 MG CAP PO SCH ×4 (09:00→21:35)
[2016-12-29] MEDS ORDERED: LORazepam 2 MG/ML VIAL IV PUSH PRN ×2 (09:15)
--- NOTE | 2016-12-29 09:36 | HHI.PR ---
Subjective Remarks Follow up for LUE/LLE numbness/weakness. The patient is drowsy this morning but awakens to voice. She has difficulty explaining her symptoms. She is not sure if the left arm/leg weakness is worse than her baseline. She reports feeling weak all over. She is hungry and wants to eat. Denies any headache, lightheadedness, chest pain, shortness of breath, abdominal or urinary complaints. Objective Vitals Vital Signs Date Time Temp Pulse Resp B/P (MAP) Pulse Ox O2 Delivery O2 Flow Rate FiO2 12/29/16 07:45 98.1 86 18 161/70 (100) 95 12/29/16 06:30 21 12/29/16 05:24 63 18 173/74 (107) 97 12/29/16 03:16 82 16 187/80 (115) 95 12/29/16 01:44 65 18 132/60 (84) 98 12/29/16 00:25 98.0 74 18 139/69 (92) 97 12/29/16 00:00 79 12/28/16 22:30 12/28/16 19:32 176/95 (122) 12/28/16 19:06 98 Room Air 12/28/16 18:45 80 16 203/88 (126) 98 Room Air 12/28/16 18:30 76 16 200/87 (124) 98 Room Air 12/28/16 17:47 18 98 Room Air 12/28/16 17:14 98.5 81 16 188/86 (120) 96 I/O 12/28/16 12/28/16 12/28/16 12/29/16 12/29/16 12/29/16 07:00 15:00 23:00 07:00 15:00 23:00 Output Total 500 ml Balance -500 ml Output Urine Total 500 ml Result Diagram: 12/29/1672212/29/16722 Imaging Last Impressions Head CT 12/28/16 1512 Signed Impressions: Service Date/Time: Wednesday, December 28, 2016 19:42 - CONCLUSION: No acute disease. Alonzo Mansfield MD Objective Remarks GENERAL: Well-nourished, well-developed elderly female patient in NAD. Drowsy, but arousable. SKIN: Warm and dry. No rash. HEENT: Normocephalic. Atraumatic. Pupils equal and round. Mucous membranes pink and moist. NECK: Supple. Trachea midline. CARDIOVASCULAR: Regular rate and rhythm. S1, S2 noted. 3/6 systolic ejection murmur. RESPIRATORY: No accessory muscle use. Clear to auscultation. Breath sounds equal bilaterally. GASTROINTESTINAL: Abdomen soft, non-tender, nondistended. Normoactive bowel sounds x4. MUSCULOSKELETAL: No obvious deformities. Extremities without clubbing, cyanosis , or edema. NEUROLOGICAL: Awake and alert. 1/5 strength LUE/LLE, 3/5 strength RUE/RLE. Difficulty finding words, but speech not slurred. Mild left facial droop. Medications and IVs Current Medications Medications (Trade) Dose Ordered Sig/Jasmina Route Start Time Stop Time Status Last Admin (NS Flush) 2 ml BID IV FLUSH 12/29/16 09:00 (NS Flush) 2 ml UNSCH PRN IV FLUSH 12/28/16 22:15 (NovoLOG SUPPLEMENTAL SCALE) 1 ACHS SQ 12/29/16 08:00 (D50w (Vial) Inj) 50 ml UNSCH PRN IV PUSH 12/28/16 22:15 (Glucagon Inj) 1 mg UNSCH PRN OTHER 12/28/16 22:15 Ciprofloxacin/ Dextrose 200 ml @ 200 mls/hr Q12H IV 12/29/16 08:00 (Duoneb Neb) 1 ampule Q4HR WHILE AWAKE NEB NEB 12/29/16 08:00 12/29/16 07:09 Sodium Chloride 1,000 ml @ 50 mls/hr Q20H IV 12/29/16 01:45 12/29/16 01:45 (Arimidex) 1 mg DAILY PO 12/29/16 09:00 (Symbicort 80-4.5 Mcg Inh) 2 puff Q12HR INH 12/29/16 09:00 (Colace) 100 mg BID PO 12/29/16 09:00 (Remeron) 45 mg HS PO 12/29/16 21:00 (Protonix) 40 mg DAILY PO 12/29/16 09:00 (Pravachol) 10 mg HS PO 12/29/16 21:00 (Coumadin) 4 mg DAILY@1600 PO 12/29/16 16:00 (Synthroid) 112 mcg DAILY@0600 PO 12/29/16 06:00 (Paxil) 30 mg DAILY PO 12/29/16 09:00 (Coumadin Booklet) 1 ONCE ONCE .XX 12/29/16 16:00 12/29/16 16:01 (Synthroid) 25 mcg DAILY@0600 PO 12/29/16 06:00 (Ativan Inj) 0.5 mg ONCE PRN IV PUSH 12/29/16 09:15 UNV A/P Problem List: (1) Left-sided weakness ICD Code: R53.1 - Weakness Status: Acute Assessment and Plan 86-year-old female with 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 Acute on Chronic CVA: presented with worsening left sided weakness. Patient with recent history of Right MCA CVA diagnosed 1 month ago. Recently discharged from [facility] on 12/20/16. -Head CT images reviewed, no new findings -Brain MRI showed small area of increased signal in the centrum semiovale region on the right posteriorly suggests small evolving stroke -Allow permissive hypertension for now, holding patient's atenolol, hydralazine, lisinopril -head of bed flat -Consult PT/OT/ST, NPO until evaluated by speech therapy -Continue patient's Coumadin, INR therapeutic -Continue patient's statin -Neurology consulted, appreciate assistance -Discussed with Dr. Pan, given recurrent stroke symptoms and no hx of overt bleeding, will add antiplatelet with aspirin 81mg to coumadin, discussed extensively with patient's daughter -recommended close follow up with patient's family reunification specialist Dr. Meza Abnormal UA: UA suggestive of possible UTI. Patient is asymptomatic. -Will hold off on antibiotics for now -Await urine culture COPD: chronic, O2 sat stable on room air -Resume patient's Symbicort and Duo nebs as needed History of DVT and PE: chronic, stable -Continue patient's Coumadin, INR therapeutic at 2.9 -pharmacy consult Hypertension: -Initially held home medications to allow for permissive hypertension -Will start to control BP, added IV Vasotec prn SBP > 160 -restart home medications tomorrow am DVT Prophylaxis: on Coumadin Maya Dumont PA-C Dec 29, 2016 9:36 am
--- NOTE | 2016-12-29 10:10 | RADRPT ---
EXAM DATE/TIME: 12/29/2016 09:40 [facility] COMPARISON: CT BRAIN W/O CONTRAST, December 28, 2016, 19:42. INDICATIONS : CVA. Left facial droop. Left upper and lower extremity weakness. MEDICAL HISTORY : Chronic obstructive pulmonary disease. Arthritis. Hypertension. Asthma, CAD,CVA,hyperlipidemia,hypoth yroid, DVT,PE. CA of pancreas, bladder, breast. SURGICAL HISTORY : Cholecystectomy. CABG Tonsillectomy. Left breast lumpectomy. ENCOUNTER: Initial ACUITY: 1 day PAIN SCORE: 0/10 LOCATION: cranial TECHNIQUE: Multiplanar, multisequence MRI of the brain was performed without contrast. FINDINGS: CEREBRUM: The ventricles are normal for age. No evidence of midline shift, mass lesion, hemorrhage or acute in farction. No extraaxial fluid collections are seen. The pituitary gland and suprasellar cistern are normal in configuration. WHITE MATTER: There is diffuse periventricular white matter change. POSTERIOR FOSSA: The cerebellum and brainstem are intact. The 4th ventricle is midline. The cerebellopontine angle is unremarkable. The cerebellar tonsils are normal in position. DIFFUSION IMAGING: On the right side posteriorly there is a triangular 1 cm area of slight increased signal on the diffu foster weighted sequences could be a chronic evolving lacunar stroke. EXTRACRANIAL: The visualized portions of the orbits and paranasal sinuses are unremarkable. CONCLUSION: Diffuse atrophy is present. Very questionable small area of increased signal on the diffusion weighte d sequences in the centrum semiovale region on the right posteriorly could be an small chronic evolvi ng stroke. Ry Trevino MD on December 29, 2016 at 10:05 Board Certified Radiologist. This report was verified electronically.
[2016-12-29 13:33] LABS: HEMOGLOBIN A1C 6.8 % (4.3-6.0)
[2016-12-29] MEDS: ENALAPRILAT 1.25 MG/ML VIAL IV PUSH PRN ×2 (14:49)
[2016-12-29] MEDS ORDERED: WARFARIN SOD 4 MG TAB PO SCH ×2 (16:00)
[2016-12-29] MEDS: PANTOPRAZOLE SODIUM 40 MG VIAL IV PUSH SCH ×2 (17:18)
[2016-12-29] MEDS ORDERED: MORPHINE SULFATE 2 MG/ML INJ IM PRN ×2 (18:45)
[2016-12-29] MEDS: MIRTAZAPINE 15 MG TAB PO SCH ×2 (21:33)
[2016-12-29] MEDS: LISINOPRIL 20 MG TAB PO SCH ×2 (21:33)
[2016-12-29] MEDS: PRAVASTATIN SOD 10 MG TAB PO SCH ×2 (21:33)
[2016-12-29] MEDS: MORPHINE SULFATE 15 MG CONTROLLED RELEASE TAB PO SCH ×2 (21:35)
[2016-12-30] VITALS (10 sets, daily range): BP systolic 126–170; BP diastolic 58–85; PULSE 78–92; RESP 18; TEMP 97.8–98.7; O2SAT 96–98
[2016-12-30] MEDS: ENALAPRILAT 1.25 MG/ML VIAL IV PUSH PRN ×2 (04:40)
--- NOTE | 2016-12-30 05:40 | MB ---
cc: TRISTIAN ALLEN DATE OF CONSULTATION 12/29/2016 REASON FOR CONSULTATION Stroke. HISTORY OF PRESENT ILLNESS Ms. Lau is an 86-year-old female with past medical history significant for stroke in November of 2016 with residual left-sided weakness, mild slurred speech. She presented after she was released to [facility] and for the last 2 days she states that she was having some word finding difficulty and left-sided facial droop with more "weakness. The patient is on Coumadin. She states she was on Eliquis earlier for DVT, PE and stroke. INR was found to be therapeutic at 2.[address] without contrast did not show any acute disease. REVIEW OF SYSTEMS A 12-point review of systems is negative except for what is stated in the HPI. PAST MEDICAL HISTORY 1. COPD. 2. Anxiety. 3. Arthritis. 4. Asthma. 5. CAD. 6. Recent stroke. 7. Hyperlipidemia. 8. Hypertension. 9. Hypothyroidism. 10. CA of the pancreas in 1998 status post resection. 11. Bladder cancer. 12. Breast cancer. PAST SURGICAL HISTORY 1. Appendectomy. 2. CABG. 3. Cholecystectomy. 4. Cystectomy. 5. EGD with dilation. 6. Tonsillectomy. 7. Lymph node removal. 8. Bowel resection. 9. Lumpectomy of a breast. 10. Resection of pancreatic cancer. MEDICATIONS 1. Synthroid. 1. Levothyroxine. 2. Pantoprazole. 3. Ultram. 4. Morphine. 5. Atenolol. 6. Coumadin. 7. Ventolin. 8. Lisinopril. 9. Symbicort. 10. Paroxetine. 11. Benzos. 12. Vitamin D3. 13. Pravastatin. 14. Singulair. ALLERGIES AMLODIPINE. ATORVASTATIN. CODEINE. DIMENHYDRONATE. SIMVASTATIN. ZOLPIDEM. CEPHALEXIN. FAMILY HISTORY Noncontributory. SOCIAL HISTORY Nonsmoker, nondrinker and does not use illicit drugs. PHYSICAL EXAMINATION GENERAL: Pleasant, sits in bed comfortably. Not in apparent distress HEENT: Atraumatic, normocephalic. NECK: Soft. No carotid bruits. CARDIOVASCULAR: Regular rate and rhythm. RESPIRATORY: Clear to auscultation. No wheezes. GASTROINTESTINAL: Soft abdomen nontender. MUSCULOSKELETAL: Weakness of the entire left upper and lower extremity/chronic. NEUROLOGICAL: Awake, alert, oriented to place, time and person. Dysarthria/ chronic left facial palsy. No nystagmus. Pupils 3 mm, equally reacting to light and accommodation. No dysphagia. Normal facial sensation left, spastic left upper and lower extremities. Pyramidal distribution of weakness with mild increase in the tone. No abnormal movement. Intact right upper and lower extremities, 5/5. No abnormal movement. Normal tone. [id number] intact on the right, slow on the left because of weakness. Left lower extremity pyramidal distribution of weakness.Reflexes 1+ bilateral, symmetrical. PSYCHIATRIC: Cooperative. No delusions. No hallucinations. LABORATORY DATA White blood cells 4.6, hemoglobin 13.4, MCV 92.2, platelet count 162. BUN 17, creatinine 0.82, calcium 8.4, sodium 142, potassium 4.6, anion gap 5. DIAGNOSTIC IMAGING - HEAD CT SCAN: No acute abnormality. -Brain MRI w/o contrast. Revealed diffuse atrophy, very questionable small area of increased signal, diffusion weighted sequence in the centrum semi ovale on the right posterior galea; could be a small chronic evolving stroke. DIAGNOSTIC IMPRESSION 1. Recent history of ischemic stroke right hemisphere with residual left-sided facial upper and lower extremity weakness and dysarthria. 2. TIA. 3. Recrudescence of remote stroke symptoms. 4. Hypertension, uncontrolled. No need for permissive hypertension. 5. Speech therapy recommendations are appreciated. 6. PT/OT recommendations are appreciated. 7. Telemetry. 8. Management of blood pressure goal is 135-140/75-80. 9. Continue Coumadin for DVT and PE. 10. Add aspirin 81 mg. 11. DVT prophylaxis, SCDs. 12. GI prophylaxis. Thank you for the opportunity to participate in the care of your patient. MD JEWEL Olson/YEFRI /12:06 PM /6:25 AM [place]
[2016-12-30] MEDS: hydrALAZINE HCL 25 MG TAB PO SCH ×4 (05:57→13:26)
[2016-12-30] MEDS: LEVOTHYROXINE SODIUM 25 MCG TAB PO SCH ×2 (05:58)
[2016-12-30] MEDS: LEVOTHYROXINE SODIUM 112 MCG TAB PO SCH ×2 (05:58)
[2016-12-30] MEDS: MORPHINE SULFATE 15 MG CONTROLLED RELEASE TAB PO SCH ×6 (05:58→18:41)
[2016-12-30] MEDS: INSULIN ASPART SUPPLEMENTAL SCALE SQ SCH ×8 (07:52→21:30)
[2016-12-30] MEDS: PARoxetine HCL 20 MG TAB PO SCH ×2 (09:00)
[2016-12-30] MEDS: DOCUSATE SODIUM 100 MG CAP PO SCH ×4 (09:00→21:29)
[2016-12-30] MEDS: SODIUM CHLORIDE 0.9% FLUSH 5 ML FLUSH IV FLUSH SCH ×4 (09:00→21:30)
[2016-12-30] MEDS: BUDESONIDE-FORMOTEROL 80/4.5 MCG INHALER INH SCH ×4 (09:11→21:30)
[2016-12-30] MEDS: ASPIRIN EC 81 MG TABEC PO SCH ×2 (09:11)
[2016-12-30] MEDS: ATENOLOL 25 MG TAB PO SCH ×2 (09:11)
[2016-12-30] MEDS: LISINOPRIL 20 MG TAB PO SCH ×4 (09:11→21:29)
[2016-12-30] MEDS: ANASTROZOLE 1 MG TAB PO SCH ×2 (09:12)
[2016-12-30] MEDS: RESP: ALBUTEROL 2.5 MG/IPRATROPIUM 0.5 MG NEB (SCH) NEB ×8 (09:12→21:43)
[2016-12-30 10:30] LABS: PROTHROMBIN TIME - PATIENT 34.9 SEC (9.8-11.6)
--- NOTE | 2016-12-30 14:19 | HHI.PR ---
Subjective Remarks The patient was resting comfortably in bed. She said she felt a lot better. She was looking forward to going home tomorrow. She said her breathing comes and goes. She has been tolerating a diet. She has been having bowel movements. Objective Vitals Vital Signs Date Time Temp Pulse Resp B/P (MAP) Pulse Ox O2 Delivery O2 Flow Rate FiO2 12/30/16 12:32 98.3 92 18 136/85 (102) 98 12/30/16 09:16 96 21 12/30/16 08:31 97.8 84 18 148/70 (96) 98 12/30/16 08:12 86 12/30/16 07:00 18 12/30/16 06:49 88 12/30/16 06:03 98.0 84 18 170/79 (109) 97 12/30/16 00:50 98.0 78 18 138/63 (88) 97 12/29/16 21:02 90 12/29/16 20:41 94 21 12/29/16 20:29 97.7 92 18 162/72 (102) 97 12/29/16 16:00 98.0 84 16 155/65 (95) 94 I/O 12/29/16 12/29/16 12/29/16 12/30/16 12/30/16 12/30/16 07:00 15:00 23:00 07:00 15:00 23:00 Intake Total 270.4 ml Output Total 500 ml Balance -500 ml 270.4 ml Intake IV Total 270.4 ml Output Urine Total 500 ml # Voids 1 # Bowel Movements 1 Result Diagram: 12/29/16 0723 12/29/16 0723 Imaging Last Impressions Brain MRI 12/29/16 0000 Signed Impressions: Service Date/Time: Thursday, December 29, 2016 09:40 - CONCLUSION: Diffuse atrophy is present. Very questionable small area of increased signal on the diffusion weighted sequences in the centrum semiovale region on the right posteriorly could be an small chronic evolving stroke. Ry Trevino MD Head CT 12/28/16 6214 Signed Impressions: Service Date/Time: Wednesday, December 28, 2016 19:42 - CONCLUSION: No acute disease. Alonzo Mansfield MD Objective Remarks GENERAL: Well-nourished, well-developed elderly female patient in [place]. Drowsy, but arousable. SKIN: Warm and dry. No rash. HEENT: Normocephalic. Atraumatic. Pupils equal and round. Mucous membranes pink and moist. NECK: Supple. Trachea midline. CARDIOVASCULAR: Regular rate and rhythm. S1, S2 noted. 3/6 systolic ejection murmur. RESPIRATORY: No accessory muscle use. Clear to auscultation. Breath sounds equal bilaterally. GASTROINTESTINAL: Abdomen soft, non-tender, nondistended. Normoactive bowel sounds x4. MUSCULOSKELETAL: No obvious deformities. Extremities without clubbing, cyanosis , or edema. NEUROLOGICAL: Awake and alert. 1/5 strength LUE/LLE, 3/5 strength RUE/RLE. Difficulty finding words, but speech not slurred. Mild left facial droop. PSYCH: Mood and affect appropriate. Medications and IVs Current Medications Medications (Trade) Dose Ordered Sig/Jasmina Route Start Time Stop Time Status Last Admin (NS Flush) 2 ml BID IV FLUSH 12/29/16 09:00 12/30/16 09:00 (NS Flush) 2 ml UNSCH PRN IV FLUSH 12/28/16 22:15 (NovoLOG SUPPLEMENTAL SCALE) 1 ACHS SQ 12/29/16 08:00 12/30/16 12:19 (D50w (Vial) Inj) 50 ml UNSCH PRN IV PUSH 12/28/16 22:15 (Glucagon Inj) 1 mg UNSCH PRN OTHER 12/28/16 22:15 (Duoneb Neb) 1 ampule Q4HR WHILE AWAKE NEB NEB 12/29/16 08:00 12/30/16 12:36 Sodium Chloride 1,000 ml @ 50 mls/hr Q20H IV 12/29/16 01:45 12/29/16 22:50 (Arimidex) 1 mg DAILY PO 12/29/16 09:00 12/30/16 09:12 (Symbicort 80-4.5 Mcg Inh) 2 puff Q12HR INH 12/29/16 09:00 12/30/16 09:11 (Colace) 100 mg BID PO 12/29/16 09:00 (Remeron) 45 mg HS PO 12/29/16 21:00 12/29/16 21:33 (Pravachol) 10 mg HS PO 11/5/17 21:00 12/29/16 21:33 (Coumadin) 4 mg DAILY@1600 PO 12/29/16 16:00 Future Hold (Synthroid) 112 mcg DAILY@0600 PO 12/29/16 06:00 12/30/16 05:58 (Paxil) 30 mg DAILY PO 12/29/16 09:00 (Synthroid) 25 mcg DAILY@0600 PO 12/29/16 06:00 12/30/16 05:58 Pharmacy Profile Note 0 ml @ 0 mls/hr UNSCH OTHER 12/29/16 11:00 (Vasotec Inj) 1.25 mg Q6H PRN IV PUSH 12/29/16 12:00 12/30/16 04:40 (Ecotrin Ec) 81 mg DAILY PO 12/30/16 09:00 12/30/16 09:11 (Tenormin) 25 mg DAILY PO 12/30/16 09:00 12/30/16 09:11 (Apresoline) 25 mg Q8HR PO 12/30/16 06:00 12/30/16 05:57 (Prinivil) 20 mg Q12HR PO 12/29/16 21:00 12/30/16 09:11 (Protonix Inj) 40 mg Q24H IV PUSH 12/29/16 17:00 12/29/16 17:18 (Oramorph Sr) 15 mg Q8HR PO 12/29/16 22:00 12/30/16 05:58 (Morphine Inj) 2 mg Q4H PRN IM 12/29/16 18:45 A/P Problem List: (1) Left-sided weakness ICD Code: R53.1 - Weakness Status: Acute Assessment and Plan 86-year-old female with 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 Acute on Chronic CVA: presented with worsening left sided weakness. Patient with recent history of Right MCA CVA diagnosed 1 month ago. Recently discharged from [facility] on 12/20/16. -Head CT images reviewed, no new findings -Brain MRI showed small area of increased signal in the centrum semiovale region on the right posteriorly suggests small evolving stroke -d/c permissive HTN and resume home meds -Consult PT/OT/ST -Continue patient's Coumadin, INR therapeutic. Baby ASA added per neurology. -Continue patient's statin -Neurology consulted, appreciate assistance -recommended close follow up with patient's coffin maker Dr. Meza Abnormal UA: UA suggestive of possible UTI. Patient is asymptomatic. -Will hold off on antibiotics for now -Await urine culture COPD: chronic, O2 sat stable on room air -Resume patient's Symbicort and Duo nebs as needed History of DVT and PE: chronic, stable -Continue patient's Coumadin, INR therapeutic. -pharmacy consult Hypertension Well controlled. - resume home meds. DVT Prophylaxis: on Coumadin Discharge Planning Anticipate d/c in 1-2 days either to rehab or home with [facility] Mandeep Henderson DO Dec 30, 2016 14:19
[2016-12-30] MEDS ORDERED: PILL SPLITTER OTHER PRN ×2 (15:15)
[2016-12-30] MEDS: PANTOPRAZOLE SODIUM 40 MG VIAL IV PUSH SCH ×2 (17:30)
[2016-12-30] MEDS ORDERED: MONTELUKAST SODIUM 10 MG TAB PO SCH ×2 (21:00)
[2016-12-30] MEDS ORDERED: PARoxetine HCL 20 MG TAB PO SCH ×2 (21:00)
[2016-12-30] MEDS: MIRTAZAPINE 15 MG TAB PO SCH ×2 (21:28)
[2016-12-30] MEDS: PRAVASTATIN SOD 10 MG TAB PO SCH ×2 (21:29)
[2016-12-31 01:18] VITALS: BP 123/72; PULSE 83; RESP 18; TEMP 98.4; O2SAT 97
[2016-12-31 01:35] VITALS: PULSE 82
[2016-12-31 04:00] VITALS: BP 187/81; PULSE 81; RESP 20; TEMP 98.5; O2SAT 97
[2016-12-31] MEDS: LEVOTHYROXINE SODIUM 25 MCG TAB PO SCH ×2 (05:41)
[2016-12-31] MEDS: LEVOTHYROXINE SODIUM 112 MCG TAB PO SCH ×2 (05:41)
[2016-12-31] MEDS: ENALAPRILAT 1.25 MG/ML VIAL IV PUSH PRN ×2 (05:42)
[2016-12-31] MEDS: MORPHINE SULFATE 15 MG CONTROLLED RELEASE TAB PO SCH ×4 (05:42→13:42)
[2016-12-31] MEDS: RESP: ALBUTEROL 2.5 MG/IPRATROPIUM 0.5 MG NEB (SCH) NEB ×4 (07:51→11:34)
[2016-12-31 08:00] VITALS: PULSE 81
[2016-12-31] MEDS: INSULIN ASPART SUPPLEMENTAL SCALE SQ SCH ×4 (08:00→11:47)
[2016-12-31 08:18] VITALS: BP 188/71; PULSE 94; RESP 20; TEMP 98.1; O2SAT 99
[2016-12-31 08:51] LABS: INTERNATIONAL NORMALIZED RATIO 1.8 RATIO; PROTHROMBIN TIME - PATIENT 20.9 SEC (9.8-11.6)
[2016-12-31] MEDS: SODIUM CHLORIDE 0.9% FLUSH 5 ML FLUSH IV FLUSH SCH ×2 (09:00)
[2016-12-31] MEDS: DOCUSATE SODIUM 100 MG CAP PO SCH ×2 (09:00)
[2016-12-31] MEDS: ANASTROZOLE 1 MG TAB PO SCH ×2 (09:20)
[2016-12-31] MEDS: BUDESONIDE-FORMOTEROL 80/4.5 MCG INHALER INH SCH ×2 (09:20)
[2016-12-31] MEDS: LISINOPRIL 20 MG TAB PO SCH ×2 (09:21)
[2016-12-31] MEDS: ASPIRIN EC 81 MG TABEC PO SCH ×2 (09:21)
[2016-12-31] MEDS: ATENOLOL 25 MG TAB PO SCH ×2 (09:21)
[2016-12-31] MEDS ORDERED: ATENOLOL 25 MG TAB PO ONE ×2 (10:15)
[2016-12-31 12:42] VITALS: BP 141/68; PULSE 88; RESP 18; TEMP 98.2; O2SAT 98
[2016-12-31] MEDS ORDERED: NITROFURANTOIN MONOHYD MACROCR 100 MG CAP PO SCH ×2 (14:00)
[2016-12-31] MEDS ORDERED: ATEN50TA PO ×2 (14:22)
[2016-12-31] MEDS ORDERED: NITR100C4 PO ×2 (14:22)
[2016-12-31] MEDS ORDERED: MSIR15 PO ×2 (14:22)
[2016-12-31] MEDS ORDERED: ASPI-99 PO ×2 (14:22)
[2016-12-31] MEDS ORDERED: COUM3TAB PO ×2 (14:22)
--- NOTE | 2016-12-31 14:28 | HHI.DCPOC ---
Discharge Care Plan Diagnosis: (1) Hx of deep venous thrombosis (2) Hx pulmonary embolism (3) Anticoagulated by anticoagulation treatment (4) HTN (hypertension) (5) Facial droop due to stroke Goals to Promote Your Health * To prevent worsening of your condition and complications * To maintain your health at the optimal level Directions to Meet Your Goals Take your medications as prescribed Follow your dietary instruction Follow activity as directed Keep your appointments as scheduled Take your immunizations and boosters as scheduled If your symptoms worsen call your PCP, if no PCP go to Urgent Care Center or Emergency Room Smoking is Dangerous to Your Health. Avoid second hand smoke Call the 24-hour hour crisis hotline for domestic abuse at Mandeep Henderson DO Dec 31, 2016 14:28
--- NOTE | 2016-12-31 14:28 | HHI.DCPOC ---
Discharge Care Plan Diagnosis: (1) Hx of deep venous thrombosis (2) Hx pulmonary embolism (3) Anticoagulated by anticoagulation treatment (4) HTN (hypertension) (5) Facial droop due to stroke Goals to Promote Your Health * To prevent worsening of your condition and complications * To maintain your health at the optimal level Directions to Meet Your Goals Take your medications as prescribed Follow your dietary instruction Follow activity as directed Keep your appointments as scheduled Take your immunizations and boosters as scheduled If your symptoms worsen call your PCP, if no PCP go to Urgent Care Center or Emergency Room Smoking is Dangerous to Your Health. Avoid second hand smoke Call the 24-hour hour crisis hotline for domestic abuse at Mandeep Henderson DO Dec 31, 2016 14:28
--- NOTE | 2016-12-31 14:28 | HHI.DCPOC ---
Discharge Care Plan Diagnosis: (1) Hx of deep venous thrombosis (2) Hx pulmonary embolism (3) Anticoagulated by anticoagulation treatment (4) HTN (hypertension) (5) Facial droop due to stroke Goals to Promote Your Health * To prevent worsening of your condition and complications * To maintain your health at the optimal level Directions to Meet Your Goals Take your medications as prescribed Follow your dietary instruction Follow activity as directed Keep your appointments as scheduled Take your immunizations and boosters as scheduled If your symptoms worsen call your PCP, if no PCP go to Urgent Care Center or Emergency Room Smoking is Dangerous to Your Health. Avoid second hand smoke Call the 24-hour hour crisis hotline for domestic abuse at Mandeep Henderson DO Dec 31, 2016 14:28
--- NOTE | 2016-12-31 14:36 | HHI.DS ---
Discharge Summary Admission Date Dec 29, 2016 at 11:26 Discharge Date: Dec 31, 2016 Admitting Diagnosis CVA (1) Left-sided weakness ICD Code: R53.1 - Weakness Diagnosis: Principal Status: Acute (2) Facial droop due to stroke ICD Code: I69.392 - Facial weakness following cerebral infarction Diagnosis: Principal Status: Acute (3) Anticoagulated by anticoagulation treatment ICD Code: Z79.01 - USP (current) use of anticoagulants Status: Acute (4) Hx pulmonary embolism ICD Code: Z86.711 - Personal history of pulmonary embolism Status: Chronic (5) Hx of deep venous thrombosis ICD Code: Z86.718 - Personal history of other venous thrombosis and embolism Status: Chronic (6) HTN (hypertension) ICD Code: I10 - Essential (primary) hypertension Status: Chronic Procedures None Brief History - From Admission 86-year-old female with a past medical history significant for CVA in November of this year presents with a 2 day history of left upper and lower extremity numbness and weakness. The patient states that she just left rehabilitation approximately 5 days ago. She is having word finding difficulty, unclear if this is baseline. She has a left-sided facial droop that is mild. Per previous notes this is residual and is unchanged. She is on Coumadin for DVT/PE /CVA. Laboratory values were unremarkable but UA was significant for UTI. INR therapeutic at 2.9. The patient denies any pain but states she continues to have numbness in her left upper and lower extremities. CBC/BMP: 12/29/16 0723 12/29/16 0723 Significant Findings Laboratory Tests Test 12/28/16 18:45 12/29/16 07:23 12/30/16 09:52 12/31/16 07:52 Monocytes (%) (Auto) 11.9 % (0.0-8.0) 10.3 % (0.0-8.0) Eosinophils (%) (Auto) 4.3 % (0.0-4.0) Prothrombin Time 34.1 SEC (9.8-11.6) 36.8 SEC (9.8-11.6) 34.9 SEC (9.8-11.6) 20.9 SEC (9.8-11.6) Urine Occult Blood SMALL (NEG) Urine RBC 6 /hpf (0-3) Urine WBC 23 /hpf (0-5) Urine Bacteria RARE /hpf (NONE) Urine Mucus FEW /lpf (OCC) Random Glucose 137 MG/DL (74-106) Calcium Level 8.4 MG/DL (8.5-10.1) 8.4 MG/DL (8.5-10.1) Chloride Level 109 MEQ/L (98-107) Estimat Glomerular Filtration Rate 66 ML/MIN (>89) 75 ML/MIN (>89) Platelet Count 143 TH/MM3 (150-450) Hemoglobin A1c 6.8 % (4.3-6.0) Imaging Last Impressions Brain MRI 12/29/16 0000 Signed Impressions: Service Date/Time: Thursday, December 29, 2016 09:40 - CONCLUSION: Diffuse atrophy is present. Very questionable small area of increased signal on the diffusion weighted sequences in the centrum semiovale region on the right posteriorly could be an small chronic evolving stroke. Ry Trevino MD Head CT 12/28/16 1854 Signed Impressions: Service Date/Time: Wednesday, December 28, 2016 19:42 - CONCLUSION: No acute disease. Alonzo Mansfield MD PE at Discharge GENERAL: Well-nourished, well-developed elderly female patient in [facility]. Drowsy, but arousable. SKIN: Warm and dry. No rash. HEENT: Normocephalic. Atraumatic. Pupils equal and round. Mucous membranes pink and moist. NECK: Supple. Trachea midline. CARDIOVASCULAR: Regular rate and rhythm. S1, S2 noted. 3/6 systolic ejection murmur. RESPIRATORY: No accessory muscle use. Clear to auscultation. Breath sounds equal bilaterally. GASTROINTESTINAL: Abdomen soft, non-tender, nondistended. Normoactive bowel sounds x4. MUSCULOSKELETAL: No obvious deformities. Extremities without clubbing, cyanosis , or edema. NEUROLOGICAL: Awake and alert. 1/5 strength LUE/LLE, 3/5 strength RUE/RLE. Difficulty finding words, but speech not slurred. Mild left facial droop. PSYCH: Mood and affect appropriate. Pt update on day of discharge The patient was anxious to be discharged to rehabilitation. Her family was at the bedside and her questions were answered. The patient had no acute complaints. Discussed with nursing. Hospital Course CVA 86-year-old female with history of a right MCA CVA on 11/26/16, COPD, anxiety, CAD, HTN, HLD, hypothyroidism, breast cancer s/p lumpectomy, presents with a 2 day history of worsening left upper and lower extremity weakness and numbness and increasing facial droop per her family. Recently discharged from [facility] on 12/20/16. Head CT images reviewed, no new findings. Brain MRI showed: diffuse atrophy; present; Very questionable small area of increased signal on the diffusion weighted sequences in the centrum semiovale region on the right posteriorly which could be a small chronic evolving stroke. Neurology was consulted. The pt worked with PT/OT/ST. We continued the patient's Coumadin. Baby ASA was added per neurology. We continued the patient's statin. The pt will be d/c to inpatient rehab. She will follow up with neurology as an outpt. UTI Culture growing coag negative staph. D/c on Macrobid. Follow urine culture. History of DVT and PE We continued the patient's Coumadin. The dose was changed to 3 mg daily. She will have an INR checked 01/01 and regularly at rehab. Her Coumadin dose will be adjusted as needed. Hypertension Atenolol was increased to 50 mg daily. Pt Condition on Discharge: Stable Discharge Disposition: Rehab Inpatient Discharge Time: > 30 minutes Discharge Instructions DIET: Follow Instructions for: As Tolerated, No Restrictions Activities you can perform: Weight Bearing as Kaye Follow up Referrals: PCP Follow-up - 1 Week New Orders: PT/INR - 01/01/17 New Medications: Aspirin DR (Adult Aspirin EC Low Strength) 81 Mg Tabec 81 MG PO DAILY for CVA, #30 TAB Atenolol (Atenolol) 50 Mg Tab 50 MG PO DAILY for Blood Pressure Management, #30 TAB Nitrofurantoin Monohydrate Macrocrystals (Nitrofurantoin Monohydrate Macrocrystals) 100 Mg Cap 100 MG PO BIDPC for UTI, #13 CAP Changed Medications: Morphine IR (Morphine IR) 15 Mg Tab 15 MG PO Q8HR PRN for pain, #15 TAB (Changed from: 30) monitor for lethargy goal to avoid long term care pharmacist narcotics Warfarin (Coumadin) 3 Mg Tab 3 MG PO DAILY@1600 for CVA for 30 Days, #30 TAB (Changed from: 4 MG; 39; check INR Friday, Friday, Friday, Friday report results to PCP) check INR Friday, Friday, Friday, Friday report results to PCP Continued Medications: Albuterol 18 GM Inh (Ventolin Hfa 18 GM Inh) 90 Mcg/Act Aer 2 PUFF INH Q6H PRN for SHORTNESS OF BREATH for 30 Days, INHALER Anastrozole (Arimidex) 1 Mg Tab 1 MG PO DAILY for Breast Cancer, #30 TAB 0 Refills Bacitracin Topical (Bacitracin Topical) 500 Unit/Gm Oint 1 APPLIC TOPICAL Q12HR for 7 Days, TUBE Benzonatate (Benzonatate) 100 Mg Cap 100 MG PO Q12HR PRN for COUGH, #30 CAP 0 Refills Budesonide-Formoterol Inh (Symbicort Inh) 80-4.5 Mcg/Act Aero 2 PUFF INH Q12HR for Breathing Treatment for 30 Days, INHALER Cholecalciferol (Vitamin D3) 1,000 Unit Tab 2000 UNITS PO DAILY for Nutritional Supplement, #1 BOTTLE 0 Refills Docusate Sodium (Dok) 100 Mg Cap 100 MG PO BID for 60 Days, CAP Ipratropium-Albuterol Neb (Duoneb) 0.5-2.5 Mg/3 Ml Neb 1 AMPULE NEB QID NEB for Broncospasm, #15 ML Levothyroxine (Levothyroxine) 137 Mcg Tab 137 MCG PO DAILY for Thyroid, #30 TAB 0 Refills Lisinopril (Lisinopril) 20 Mg Tab 20 MG PO Q12HR for Blood Pressure Management for 30 Days, TAB check Blood pressure prior to taking medication Mirtazapine (Mirtazapine) 45 Mg Tab 45 MG PO HS for Depression Control, #30 TAB 0 Refills Montelukast (Singulair) 10 Mg Tab 10 MG PO HS, #30 TAB 0 Refills Ondansetron (Zofran) 4 Mg Tab 4 MG PO Q6HR PRN for NAUSEA OR VOMITING, TAB 0 Refills Pantoprazole (Pantoprazole) 40 Mg Tab 40 MG PO DAILY for 30 Days, TAB Paroxetine (Paroxetine) 30 Mg Tab 30 MG PO DAILY, #30 TAB 0 Refills Pravastatin (Pravastatin) 10 Mg Tab 10 MG PO HS for Cholesterol Management, #30 TAB 0 Refills [guaiFENesin ER] () 600 MG TABCR 600 MG PO BID for Chest Congestion/Cough, #60 Discontinued Medications: Atenolol (Atenolol) 25 Mg Tab 25 MG PO DAILY for 30 Days, TAB check Blood pressure prior to taking medication Atenolol (Atenolol) 25 Mg Tab 25 MG PO DAILY for Blood Pressure Management, #30 TAB Enoxaparin Inj (Lovenox Inj) 40 Mg/0.4 Ml Syr 40 MG SQ Q12HR for Stroke Prevention, #60 INJECTION Hydralazine HCl (Hydralazine HCl) 25 Mg Tablet 25 MG PO Q8HR for Blood Pressure Management for 30 Days, TAB Levothyroxine (Levothyroxine) 25 Mcg Tab 25 MCG PO DAILY@0600 for 30 Days, TAB Levothyroxine (Synthroid) 112 Mcg Tab 112 MCG PO DAILY@0600 for 30 Days, TAB Morphine ER (Morphine ER) 15 Mg Tab 15 MG PO Q6HR for Pain Management, TAB 0 Refills Morphine IR (Morphine IR) 15 Mg Tab 15 MG PO Q4H PRN for PAIN, TAB 0 Refills Tramadol (Ultram) 50 Mg Tab 25 MG PO Q8HR PRN for pain 1-5, #30 TAB Warfarin (Coumadin) 2.5 Mg Tab 2.5 MG PO DAILY@16 for Stroke Prevention, #30 TAB Mandeep Henderson DO Dec 31, 2016 14:35
[2016-12-31] MEDS ORDERED: WARFARIN SOD 3 MG TAB PO SCH ×4 (16:00)
[2017-01-01] MEDS ORDERED: ATENOLOL 50 MG TAB PO SCH ×2 (09:00)
== END 2016-12-31 15:56 | DRG 65 ==
LOC: NEPE 17:10 → NEDA 21:34 → NEPGCP 22:42 → OBSVTOIN 12-29 11:26 → N05B 12-29 15:22
PROVIDERS: ADMIT Hospitalist; ATTEND Hospitalist
DX: I63.9 Cerebral infarction, unspecified (principal); N39.0 Urinary tract infection, site not specified; J44.9 Chronic obstructive pulmonary disease, unspecified; R47.01 Aphasia; I10 Essential (primary) hypertension; I69.392 Facial weakness following cerebral infarction; I25.10 Atherosclerotic heart disease of native coronary artery without angina pectoris; E78.5 Hyperlipidemia, unspecified; E03.9 Hypothyroidism, unspecified; M19.90 Unspecified osteoarthritis, unspecified site; F32.9 Major depressive disorder, single episode, unspecified; F41.9 Anxiety disorder, unspecified; Z79.01 Long term (current) use of anticoagulants; Z85.07 Personal history of malignant neoplasm of pancreas; Z85.3 Personal history of malignant neoplasm of breast; Z85.51 Personal history of malignant neoplasm of bladder; Z86.711 Personal history of pulmonary embolism; Z86.718 Personal history of other venous thrombosis and embolism; Z88.1 Allergy status to other antibiotic agents; Z88.5 Allergy status to narcotic agent; Z95.1 Presence of aortocoronary bypass graft
CPT/HCPCS: 70450; 70551; 76937; 80048; 80061; 81001; 82948; 83036; 85025; 85610; 86403; 87077; 87086; 87186; 94640; C9113; G8987-GP; G8988-GP; J0744; J1815; J2270; J2405; J7030

== ENCOUNTER → 2017-02-20 | Outpatient (CLI) | payer MEDICARE ==
[~2017-02-20] MED LIST changes: -ANAS1 PO; +ANAS1TAB PO; -ATEN25TA PO; -BACI500O2 TOPICAL; +BENZ1CAP54 PO; -BENZ1CAP8 PO; +COLA100C5 PO; -COUM2.5T PO; -COUM3TAB PO; +CYCL7.5E EACH EYE; -DOCU1CAP39 PO; +ECASA81 PO; -ENOX40P SQ; +IPRASOL INH; -IPRASOL NEB; +JANT5TAB PO; +LEVO137T2 PO; -LEVO150T7 PO; -LEVO25TA4 PO; +LOPE-1 PO; -MONT10TA2 PO; +MONT10TA4 PO; +NITR100C4 PO; +PRED10 PO; +PRED5TAB PO; -SYNT112T PO; -ULTR50TA5 PO; -VENTAER INH; +VITA1000 PO; -VITA100064 PO; -WHEEMIS3; +ZOFR4TAB PO; -guaiFENesin ER PO
[2017-02-20 16:03] LABS: AUTOMATED NEUTROPHIL # 7.4 TH/MM3 (1.8-7.7); BASOPHIL # 0.1 TH/MM3 (0-0.2); BASOPHIL % 0.7 % (0.0-2.0); EOSINOPHIL # 0.1 TH/MM3 (0-0.4); EOSINOPHIL % 0.9 % (0.0-4.0); HEMATOCRIT 29.9 % (35.0-46.0); HEMOGLOBIN 9.5 GM/DL (11.6-15.3); LYMPH % 16.7 % (9.0-44.0); LYMPHOCYTE # 1.7 TH/MM3 (1.0-4.8); MEAN CELL VOLUME 87.2 FL (80.0-100.0); MEAN CORPUSCULAR HEMOGLOBIN 27.7 PG (27.0-34.0); MEAN CORPUSCULAR HGB CONC 31.8 % (32.0-36.0); MEAN PLATELET VOLUME 7.8 FL (7.0-11.0); MONO % 6.7 % (0.0-8.0); MONOCYTE # 0.7 TH/MM3 (0-0.9); PLATELET COUNT 210 TH/MM3 (150-450); RED BLOOD COUNT 3.43 MIL/MM3 (4.00-5.30); RED CELL DISTRIBUTION WIDTH 16.4 % (11.6-17.2); WHITE BLOOD COUNT 9.9 TH/MM3 (4.0-11.0)
== END ==
LOC: CLAB 15:08
PROVIDERS: ATTEND Urology
DX: R31.9 Hematuria, unspecified (principal)
CPT/HCPCS: 36415; 85025

== ENCOUNTER → 2017-03-03 | Day surgery (SDC) | payer MEDICARE ==
[~2017-03-03] VITALS: Ht 157.5 cm; Wt 73.7 kg
[~2017-03-03] MED LIST changes: +*morphine SULFATE 10 MG/ML PERIprocedure ONLY ONE; +ACETAMINOPHEN 1000 MG/100 ML 0 ML IV ONE; +CHLORHEXIDINE GLUCONATE 2 % 1 PACK (2 CLOTHS) TOPICAL PRN; +DEXAMETHASONE SOD PHOS 4 MG/ML VIAL IV ONE; +DO NOT ADM ANY ANTICOAGULANT DRUGS PRN; +LACTATED RINGER'S 1000 ML IV PRN; +LEVOFLOXACIN 500 MG PREMIX INJ 100 ML IV PRN; +LIDOCAINE HCL 1% PF 5 ML SYRINGE OTHER ONE; +METHE500 PO; +METOPROLOL TARTRATE 25 MG TAB PO PRN; +ONDANSETRON HCL 4 MG/2 ML VIAL IV PUSH ONE; +ONDANSETRON HCL 4 MG/2 ML VIAL IV PUSH PRN; +PHENYLEPH/NS 1000 MCG/10 ML SYR IV ONE; +POVIDONE IODINE 5% (ANTISEPSIS KIT) 4 APPLICATIONS EACH NARE PRN; +PROPOFOL 200 MG/20 ML AMP IV ONE; +SILVER SULFADIAZINE 1% CR 50 GM JAR TOPICAL SCH; +SODIUM CHLORID 0.9% 500 ML IV PRN; +ePHEDrine/NS 25 MG/5 ML SYRINGE IV ONE
[2017-03-03 08:10] LABS: AUTOMATED NEUTROPHIL # 5.2 TH/MM3 (1.8-7.7); BASOPHIL # 0.1 TH/MM3 (0-0.2); BASOPHIL % 1.5 % (0.0-2.0); EOSINOPHIL # 0.2 TH/MM3 (0-0.4); HEMATOCRIT 25.4 % (35.0-46.0); HEMOGLOBIN 8.5 GM/DL (11.6-15.3); LYMPH % 19.5 % (9.0-44.0); LYMPHOCYTE # 1.5 TH/MM3 (1.0-4.8); MEAN CELL VOLUME 84.7 FL (80.0-100.0); MEAN CORPUSCULAR HEMOGLOBIN 28.2 PG (27.0-34.0); MEAN CORPUSCULAR HGB CONC 33.3 % (32.0-36.0); MEAN PLATELET VOLUME 8.1 FL (7.0-11.0); MONO % 9.5 % (0.0-8.0); MONOCYTE # 0.7 TH/MM3 (0-0.9); NEUT % 67.5 % (16.0-70.0); PLATELET COUNT 102 TH/MM3 (150-450); WHITE BLOOD COUNT 7.7 TH/MM3 (4.0-11.0)
[2017-03-03 08:38] LABS: KERATOCYTES OCC (NORMAL); LYMPHOCYTES 14 % (9-44); MONOCYTES 10 % (0-8); MYELOCYTES 1 % (0-0); NEUTROPHIL # MANUAL DIFF 5.6 TH/MM3 (1.8-7.7); POLYS (SEG NEUTROPHILS) 72 % (16-70)
--- NOTE | 2017-03-03 09:32 | PD.OP ---
Operative Report Date of Surgery: Mar 03, 2017 Preoperative Diagnosis: (1) History of bladder cancer (2) Gross hematuria Postoperative Diagnosis: (1) Gross hematuria (2) History of bladder cancer Procedure: Looposcopy with fulguration of bleeding site Surgeon: Augie Paredes Systems Development Manager(s): None Operation and Findings: Indication for procedure: Case of a pleasant 86-year-old female with history bladder cancer who is status post radical cystectomy with ileal loop urinary diversion who recently developed gross hematuria. Patient presents now for endoscopic evaluation of the ileal loop. Operative procedure in detail: Patient was brought to the operating suite and placed supine on the cystoscopy table. She was then placed under general anesthesia. She was then prepped and draped in normal sterile fashion in the supine position. After appropriate timeout was undertaken I proceeded with direct endoscopic visualization of the ileal loop utilizing the flexible cystoscope. The entire loop was visualized and there was 1 small erythematous lesion which was suspicious for the source of the patient's recent gross hematuria. The lesion itself was very small less than 2 mm in size. The Bugbee electrode was utilized in this lesion was fulgurated. The cystoscope was then withdrawn and a new appliance placed over the stoma site. The patient tolerated the procedures without complications and was transferred to the PACU in satisfactory condition. Augie Paredes MD Mar 03, 2017 09:32
[2017-03-03 11:47] VITALS: BP 118/75; PULSE 62; RESP 16; TEMP 99.1; O2SAT 97
== END | disposition home or self-care (01) ==
LOC: HSDC 06:14
PROVIDERS: ATTEND Urology
DX: R31.0 Gross hematuria (principal); C67.9 Malignant neoplasm of bladder, unspecified
CPT/HCPCS: 00862; 50957; 85007; 85027; J1100; J1956; J2270; J2370; J2405; J7120; J0131

== ENCOUNTER 2017-04-25 11:12 | Observation (INO) | payer MEDICARE ==
[2017-04-25] VITALS (8 sets, daily range): BP systolic 144–171; BP diastolic 63–85; PULSE 71–87; RESP 17–19; TEMP 97.7–99; O2SAT 95–100
[~2017-04-25] VITALS: Ht 157.5 cm; Wt 70.0 kg
[~2017-04-25 11:12] MED LIST changes: -*morphine SULFATE 10 MG/ML PERIprocedure ONLY ONE; -ACETAMINOPHEN 1000 MG/100 ML 0 ML IV ONE; -CHLORHEXIDINE GLUCONATE 2 % 1 PACK (2 CLOTHS) TOPICAL PRN; -DEXAMETHASONE SOD PHOS 4 MG/ML VIAL IV ONE; -DO NOT ADM ANY ANTICOAGULANT DRUGS PRN; -ECASA81 PO; -LACTATED RINGER'S 1000 ML IV PRN; -LEVOFLOXACIN 500 MG PREMIX INJ 100 ML IV PRN; -LIDOCAINE HCL 1% PF 5 ML SYRINGE OTHER ONE; -METOPROLOL TARTRATE 25 MG TAB PO PRN; -ONDANSETRON HCL 4 MG/2 ML VIAL IV PUSH ONE; -ONDANSETRON HCL 4 MG/2 ML VIAL IV PUSH PRN; -PHENYLEPH/NS 1000 MCG/10 ML SYR IV ONE; -POVIDONE IODINE 5% (ANTISEPSIS KIT) 4 APPLICATIONS EACH NARE PRN; -PROPOFOL 200 MG/20 ML AMP IV ONE; -SILVER SULFADIAZINE 1% CR 50 GM JAR TOPICAL SCH; -SODIUM CHLORID 0.9% 500 ML IV PRN; -ePHEDrine/NS 25 MG/5 ML SYRINGE IV ONE
[2017-04-25 14:02] LABS: AUTOMATED NEUTROPHIL # 6.2 TH/MM3 (1.8-7.7); BASOPHIL # 0.1 TH/MM3 (0-0.2); BASOPHIL % 1.4 % (0.0-2.0); EOSINOPHIL # 0.1 TH/MM3 (0-0.4); EOSINOPHIL % 1.4 % (0.0-4.0); HEMATOCRIT 28.1 % (35.0-46.0); HEMOGLOBIN 8.6 GM/DL (11.6-15.3); LYMPH % 19.8 % (9.0-44.0); LYMPHOCYTE # 1.8 TH/MM3 (1.0-4.8); MEAN CELL VOLUME 73.2 FL (80.0-100.0); MEAN CORPUSCULAR HEMOGLOBIN 22.4 PG (27.0-34.0); MEAN CORPUSCULAR HGB CONC 30.6 % (32.0-36.0); MEAN PLATELET VOLUME 7.6 FL (7.0-11.0); MONO % 9.2 % (0.0-8.0); MONOCYTE # 0.8 TH/MM3 (0-0.9); NEUT % 68.2 % (16.0-70.0); PLATELET COUNT 242 TH/MM3 (150-450); RED BLOOD COUNT 3.84 MIL/MM3 (4.00-5.30); RED CELL DISTRIBUTION WIDTH 19.8 % (11.6-17.2); WHITE BLOOD COUNT 9.1 TH/MM3 (4.0-11.0)
[2017-04-25 14:10] LABS: INTERNATIONAL NORMALIZED RATIO 4.1 RATIO; PROTHROMBIN TIME - PATIENT 41.5 SEC (9.8-11.6)
--- NOTE | 2017-04-25 14:24 | PD ---
HPI Chief Complaint: GI Complaint Time Seen by Provider: 14:10 Travel History International Travel<30 days: No Contact w/Intl Traveler<30days: No Traveled to known affect area: No History of Present Illness HPI 86-year-old female with PMH of breast and bladder CA, CVA, PE, COPD, CAD, esophageal stricture ON COUMADIN presents to the ED for evaluation of 3 day history of difficulty swallowing solid foods. Patient states that she has been able to take sips of rafael rut and water without difficulty. She endorses vomiting. States that she feels as if "there is a pouch that fills up." She denies chest pain, palpitations, shortness of breath, cough, abdominal pain, changes in bowel habits. She was evaluated Dr. Cohen's office today. He sent her to the ED. PFSH Past Medical History Hx Anticoagulant Therapy: Yes Arthritis: Yes (OSTEO ARTHRITIS) Asthma: Yes Autoimmune Disease: No Blood Disorders: No Anxiety: Yes Depression: Yes Heart Rhythm Problems: No Cancer: Yes (BREAST, BLADDER, BOWEL AND LYMPHNODES @ BOTTOM AORTA) Cardiovascular Problems: Yes (heart palpitations intermittenly, chol) High Cholesterol: Yes Chemotherapy: No Chest Pain: No Congestive Heart Failure: No COPD: Yes Cerebrovascular Accident: Yes (11/29/16 AND 12/28) Coronary Artery Disease: Yes Diabetes: No Endocrine: Yes Gastrointestinal Disorders: Yes (ESOPHAGEAL STRICTURE - STRETCHED 3X, gerd) GERD: No Genitourinary: Yes (BOWEL AND BLADDER CA, Urostomy) Headaches: Yes (RECENT HEADACHES THAT START IN NECK AND GO UP THE BACK OF HEAD) Hepatitis: No Hiatal Hernia: No Hypertension: Yes Immune Disorder: No Implanted Vascular Access Dvce: Yes Kidney Stones: No Musculoskeletal: Yes (osteoporosis and arthritis) Neurologic: Yes (RECENT STROKE 11/29/16 AND 12/28) Psychiatric: Yes (anxiety/depression) Reproductive: No Respiratory: Yes (COPD / SOB on exertion, chronic cough) Migraines: No Radiation Therapy: Yes (BREAST ( SEED IMPLANT)) Renal Failure: No Seizures: No Sickle Cell Disease: No Sleep Apnea: No Thyroid Disease: Yes (HYPOTHYROID) Ulcer: No Tetanus Vaccination: Unknown Influenza Vaccination: Yes ?: Not Menopausal: Yes Past Surgical History Abdominal Surgery: Yes (hysterectomy AND CHOLECYSTECTOMY, resection of bowel) AICD: No Appendectomy: Yes Arteriovenous Shunt: No Body Medical Devices: UROSTOMY, AVR Cardiac Surgery: Yes (CARDIAC CATH / ENLARGED LYMPHNODES AT BOTTOM OF AORTA, AVR) Cholecystectomy: Yes Ear Surgery: No Endocrine Surgery: No Genitourinary Surgery: Yes (urostomy placement) Gynecologic Surgery: Yes (HYSTERCTOMY) Hysterectomy: Yes Insulin Pump: No Joint Replacement: No Neurologic Surgery: Yes (LAMINECTOMY L 4-5 FUSION) Oral Surgery: Yes (EXTRACTIONS) Pacemaker: No Thoracic Surgery: Yes (L Lumpectomy and node dissection, seedling placement ) Tonsillectomy: Yes Other Surgery: Yes (BREAST, BOWEL AND BLADDER CA / HYSTERCTOMY. CHOLESYTECTOMY AND ENLARGED LYM) Social History Alcohol Use: No Tobacco Use: No Substance Use: No Allergies-Medications (Allergen,Severity, Reaction): Coded Allergies: amlodipine (Verified Allergy, Severe, 04/25/17) atorvastatin (Verified Allergy, Severe, 04/25/17) codeine (Verified Allergy, Severe, nausea , 04/25/17) dimenhydrinate (Verified Allergy, Severe, Confusion, 04/25/17) simvastatin (Verified Allergy, Severe, 04/25/17) zolpidem (Verified Allergy, Severe, Confusion, 04/25/17) cephalexin (Verified Allergy, Intermediate, Rash, 04/25/17) Reported Meds & Prescriptions Reported Meds & Active Scripts Active Methenamine Mandelate 500 Mg Tab 500 Mg PO DAILY Reported Nitrofurantoin Monohydrate Macrocrystals (Nitrofurantoin Monoh/Nitrofur Macro) 100 Mg Cap 100 Mg PO HS Imodium A-D (Loperamide HCl) 2 Mg Capsule 2 Mg PO DIRECTED PRN One capsule after each loose stool. Not to exceed 8 tablets per day. Colace (Docusate Sodium) 100 Mg Capsule 1-2 Tab PO DAILY PRN Duoneb (Ipratropium-Albuterol Neb) 0.5-2.5 Mg/3 Ml Neb 1 Nebule INH Q6HR NEB Morphine ER (Morphine Sulfate) 15 Mg Tab 15 Mg PO Q8H PRN Vitamin D-1000 (Cholecalciferol) 1,000 Unit Tab 2,000 Units PO NOON Jantoven (Warfarin) 5 Mg Tab 5 Mg PO DAILY Benzonatate 100 Mg Cap 100 Mg PO DIRECTED PRN Morphine IR (Morphine Sulfate) 15 Mg Tab 15 Mg PO DIRECTED PRN Prednisone 10 Mg Tab 10 Mg PO DAILY Prednisone 5 Mg Tab 5 Mg PO HS Mirtazapine 45 Mg Tab 45 Mg PO HS Pravastatin 10 Mg Tab 10 Mg PO HS Montelukast (Montelukast Sodium) 10 Mg Tab 10 Mg PO HS Restasis Multidose Opth (Cyclosporine Opth) 0.05% Emul 1 Drop EACH EYE BID Symbicort Inh (Budesonide/Formoterol Fumarate) 80-4.5 Mcg/Act Aero 2 Puff INH Q12HR Hydralazine HCl 25 Mg Tablet 25 Mg PO TID Paroxetine (Paroxetine HCl) 30 Mg Tab 30 Mg PO DAILY Levothyroxine (Levothyroxine Sodium) 137 Mcg Tab 137 Mcg PO DAILY Atenolol 50 Mg Tab 50 Mg PO DAILY Pantoprazole (Pantoprazole Sodium) 40 Mg Tab 40 Mg PO DAILY Anastrozole 1 Mg Tab 1 Mg PO DAILY Lisinopril 20 Mg Tab 20 Mg PO BID Zofran (Ondansetron HCl) 4 Mg Tab 4 Mg PO Q6HR PRN Review of Systems Except as stated in HPI: all other systems reviewed are Neg Physical Exam Narrative GENERAL: Well-nourished, well-developed petite white female in no acute distress. SKIN: Focused skin assessment warm/dry. HEAD: Normocephalic. ENT: Oropharynx without erythema, edema, exudate. Uvula midline. Airway patent. EYES: No scleral icterus. No injection or drainage. NECK: Supple, trachea midline. No JVD or lymphadenopathy. CARDIOVASCULAR: Regular rate and rhythm without murmurs, gallops, or rubs. RESPIRATORY: Breath sounds clear and equal bilaterally. No accessory muscle use. GASTROINTESTINAL: Abdomen soft, non-tender, nondistended. Active bowel sounds. Ilial conduit w pale yellow urine in the collecting bag. MUSCULOSKELETAL: No cyanosis, or edema. BACK: Nontender without obvious deformity. No CVA tenderness. Data Data Last Documented VS Vital Signs Date Time Temp Pulse Resp B/P (MAP) Pulse Ox O2 Delivery O2 Flow Rate FiO2 04/25/17 15:35 74 18 167/85 (112) 98 04/25/17 14:17 Room Air 04/25/17 11:18 97.7 Orders Orders Complete Blood Count With Diff (04/25/17 12:43) Comprehensive Metabolic Panel (04/25/17 12:43) Prothrombin Time / Inr (Pt) (04/25/17 12:43) Act Partial Throm Time (Ptt) (04/25/17 12:43) Ecg Monitoring (04/25/17 12:43) Orthostatic Vital Signs (04/25/17 12:43) Oximetry (04/25/17 12:43) Oxygen Administration (04/25/17 12:43) Iv Access Insert/Monitor (04/25/17 12:43) Type And Screen (04/25/17 12:43) Consent (04/25/17 14:13) Electrocardiogram (04/25/17 ) Chest, Single Ap (04/25/17 ) Panendo (04/25/17 ) Fresh Frozen Plasma (Ffp) (04/25/17 15:29) Diet Clear Liquid (04/25/17 Dinner) Npo After Midnight W/ Po Meds (04/26/17 Breakfast) Consent (04/25/17 16:15) Fresh Frozen Plasma (Ffp) (04/26/17 06:00) Blood Product Administration (04/26/17 06:00) Prothrombin Time / Inr (Pt) (04/26/17 06:00) Phytonadione Liq (Mephyton Liq) (04/25/17 16:30) Admit Order (Ed Use Only) (04/25/17 17:00) Labs Laboratory Tests Test 04/25/17 13:05 White Blood Count 9.1 TH/MM3 Red Blood Count 3.84 MIL/MM3 Hemoglobin 8.6 GM/DL Hematocrit 28.1 % Mean Corpuscular Volume 73.2 FL Mean Corpuscular Hemoglobin 22.4 PG Mean Corpuscular Hemoglobin Concent 30.6 % Red Cell Distribution Width 19.8 % Platelet Count 242 TH/MM3 Mean Platelet Volume 7.6 FL Neutrophils (%) (Auto) 68.2 % Lymphocytes (%) (Auto) 19.8 % Monocytes (%) (Auto) 9.2 % Eosinophils (%) (Auto) 1.4 % Basophils (%) (Auto) 1.4 % Neutrophils # (Auto) 6.2 TH/MM3 Lymphocytes # (Auto) 1.8 TH/MM3 Monocytes # (Auto) 0.8 TH/MM3 Eosinophils # (Auto) 0.1 TH/MM3 Basophils # (Auto) 0.1 TH/MM3 CBC Comment DIFF FINAL Differential Comment Prothrombin Time 41.5 SEC Prothromb Time International Ratio 4.1 RATIO Activated Partial Thromboplast Time 33.1 SEC Blood Urea Nitrogen 28 MG/DL Creatinine 0.93 MG/DL Random Glucose 326 MG/DL Total Protein 6.9 GM/DL Albumin 3.0 GM/DL Calcium Level 8.8 MG/DL Alkaline Phosphatase 316 U/L Aspartate Amino Transf (AST/SGOT) 37 U/L Alanine Aminotransferase (ALT/SGPT) 60 U/L Total Bilirubin 0.5 MG/DL Sodium Level 141 MEQ/L Potassium Level 3.7 MEQ/L Chloride Level 105 MEQ/L Carbon Dioxide Level 28.7 MEQ/L Anion Gap 7 MEQ/L Estimat Glomerular Filtration Rate 57 ML/MIN MDM Medical Decision Making Medical Screen Exam Complete: Yes Emergency Medical Condition: Yes Differential Diagnosis esophageal stricture versus FB versus achalasia versus other Narrative Course 86-year-old female with PMH of breast and bladder CA, CVA, PE, COPD, CAD, esophageal stricture ON COUMADIN presents to the ED for evaluation of 3 day history of difficulty swallowing solid foods. Patient states that she has been able to take sips of rafael rut and water without difficulty. She endorses vomiting. States that she feels as if "there is a pouch that fills up." She denies chest pain, palpitations, shortness of breath, cough, abdominal pain, changes in bowel habits. She was evaluated Dr. Cohen's office today. He sent her to the ED. patient is hypertensive on presentation. Physical exam reveals a nontoxic-appearing white female in no acute distress. She speaking in full sentences. She is able to sip small amounts of water at bedside. EKG rate 74, sinus rhythm with PVCs. HI interval 161, QRS 99, QTc 385. Normal axis. No acute ST changes. Reviewed by Dr. Medrano CXR: No acute abnormalities or significant interval change 04/25/17 13:05 Total Protein 6.9, Albumin 3.0 L, Calcium Level 8.8, Alkaline Phosphatase 316 H , Aspartate Amino Transf (AST/SGOT) 37, Alanine Aminotransferase (ALT/SGPT) 60 H , Total Bilirubin 0.5 Coags: INR 4.[address] Russell who would like to take the patient to the OR for upper endoscopy, removal FB. Patient was taken to the OR and return to the ED shortly thereafter. Apparently Dr. Peters is not able to perform the procedure today and would like the patient admitted to medicine. I spoke with Dr. Meyer who agrees to accept the patient. Please see GI and medicine notes for disposition. Miri Hayes Apr 25, 2017 14:24
[2017-04-25 14:25] LABS: AST (GOT) 37 U/L (15-37); BICARBONATE 28.7 MEQ/L (21.0-32.0); BLOOD UREA NITROGEN 28 MG/DL (7-18); CALCIUM 8.8 MG/DL (8.5-10.1); CHLORIDE 105 MEQ/L (98-107); CREATININE 0.93 MG/DL (0.50-1.00); GLOMERULAR FILTRATION RATE 57 ML/MIN (>89); GLUCOSE,RANDOM 326 MG/DL (74-106); SODIUM (NA) 141 MEQ/L (136-145)
[2017-04-25 14:26] LABS: ALT (GPT) 60 U/L (10-53)
[2017-04-25 14:28] LABS: ALKALINE PHOSPHATASE 316 U/L (45-117); TOTAL BILIRUBIN ADULT 0.5 MG/DL (0.2-1.0); TOTAL PROTEIN 6.9 GM/DL (6.4-8.2)
--- NOTE | 2017-04-25 14:30 | PD ---
Physical Exam Date Seen by Provider: Apr 25, 2017 Narrative Patient presents with almost a 24-hour history of inability to swallow. She has a history of previous esophageal obstruction. The GI lab already called for her to go to the lab for an EGD. Data Data Last Documented VS Vital Signs Date Time Temp Pulse Resp B/P (MAP) Pulse Ox O2 Delivery O2 Flow Rate FiO2 04/25/17 14:17 80 19 171/83 (112) 99 Room Air 04/25/17 11:18 97.7 Orders Orders Complete Blood Count With Diff (04/25/17 12:43) Comprehensive Metabolic Panel (04/25/17 12:43) Prothrombin Time / Inr (Pt) (04/25/17 12:43) Act Partial Throm Time (Ptt) (04/25/17 12:43) Ecg Monitoring (04/25/17 12:43) Orthostatic Vital Signs (04/25/17 12:43) Oximetry (04/25/17 12:43) Oxygen Administration (04/25/17 12:43) Iv Access Insert/Monitor (04/25/17 12:43) Type And Screen (04/25/17 12:43) Consent (04/25/17 14:13) Electrocardiogram (04/25/17 ) Chest, Single Ap (04/25/17 ) Labs Laboratory Tests Test 04/25/17 13:05 White Blood Count 9.1 TH/MM3 Red Blood Count 3.84 MIL/MM3 Hemoglobin 8.6 GM/DL Hematocrit 28.1 % Mean Corpuscular Volume 73.2 FL Mean Corpuscular Hemoglobin 22.4 PG Mean Corpuscular Hemoglobin Concent 30.6 % Red Cell Distribution Width 19.8 % Platelet Count 242 TH/MM3 Mean Platelet Volume 7.6 FL Neutrophils (%) (Auto) 68.2 % Lymphocytes (%) (Auto) 19.8 % Monocytes (%) (Auto) 9.2 % Eosinophils (%) (Auto) 1.4 % Basophils (%) (Auto) 1.4 % Neutrophils # (Auto) 6.2 TH/MM3 Lymphocytes # (Auto) 1.8 TH/MM3 Monocytes # (Auto) 0.8 TH/MM3 Eosinophils # (Auto) 0.1 TH/MM3 Basophils # (Auto) 0.1 TH/MM3 CBC Comment DIFF FINAL Differential Comment Prothrombin Time 41.5 SEC Prothromb Time International Ratio 4.1 RATIO Activated Partial Thromboplast Time 33.1 SEC Blood Urea Nitrogen 28 MG/DL Creatinine 0.93 MG/DL Random Glucose 326 MG/DL Total Protein 6.9 GM/DL Albumin 3.0 GM/DL Calcium Level 8.8 MG/DL Alkaline Phosphatase 316 U/L Aspartate Amino Transf (AST/SGOT) 37 U/L Alanine Aminotransferase (ALT/SGPT) 60 U/L Total Bilirubin 0.5 MG/DL Sodium Level 141 MEQ/L Potassium Level 3.7 MEQ/L Chloride Level 105 MEQ/L Carbon Dioxide Level 28.7 MEQ/L Anion Gap 7 MEQ/L Estimat Glomerular Filtration Rate 57 ML/MIN MDM Supervised Visit with FÁTIMA: Yes Narrative Course I, Dr. Medrano, have reviewed the advance practice practitioner's documentation and am in agreement, met with the patient face to face, made the diagnosis, and the medical decision making was done by me. *My assessment and Findings: Patient is awake and alert and does not appear to be in any acute distress. Please see Miri Hayes PA-C's note for results of laboratory and radiographic evaluation, ED course, final diagnosis and disposition Diana Medrano MD Apr 25, 2017 14:30
--- NOTE | 2017-04-25 14:45 | RADRPT ---
EXAM DATE/TIME: 04/25/2017 14:39 [facility] COMPARISON: CHEST SINGLE AP, January 04, 2017, 10:30. INDICATIONS : Shortness of breath. MEDICAL HISTORY : Hypercholesterolemia. Esophageal stricture. Hypertension. Chronic obstructive pulmonary disease. SURGICAL HISTORY : CABG. Tonsillectomy. Appendectomy. Cholecystectomy. Left breast lumpectomy. ENCOUNTER: Initial ACUITY: 1 day PAIN SCORE: 0/10 LOCATION: Bilateral chest FINDINGS: Stable postoperative features of prior median sternotomy. No new focal pleural-parenchymal opacities. Cardiomediastinal contours are stable. Redemonstration of thoracolumbar scoliosis. CONCLUSION: 1. No acute abnormality or significant interval change. Taz Loomis MD on April 25, 2017 at 14:43 Board Certified Radiologist. This report was verified electronically.
[2017-04-25] MEDS ORDERED: PHYTONADIONE 5 MG TAB PO ONE (16:15)
[2017-04-25] MEDS ORDERED: PHYTONADIONE 5 MG/SWFI 5 ML ORAL SYR PO ONE (16:30)
--- NOTE | 2017-04-25 16:35 | PD.CONS ---
HPI History of Present Illness This is a 86 year old female with hx Zenker's diverticulum, bladder ca, brca, colon ca presented from [facility] with dysphagia and bolus sensation. She has been having difficulty swallowing for the last month and a half and it has worsened in the last 3 days. She feels something is stuck and cannot swallow solid food ; it does not go down and she regurgitates it. She is able to swallow pills, liquids, and her saliva. She has had 3 esophageal dilatations in the past. She was evaluated for dysphagia by our service November 2016 while in [facility] after a stroke. 12/12/16 she had EGD with findign reflux esohpagitis, small early Zenker's diverticulum. it was determined that no intervention was needed at that time for the diverticulum. She has also been evaluated in past for elevated LFTs and reportedly did not wish to proceed with liver bx. She is recently s/p CVA and on coumadin. Recent radiation seed treatment of breast cancer as well. (Safia Apodaca) PFSH Past Medical History breast ca bladder ca s/p urostomy colon ca s/p partial colectomy PE DVT COPD TIA CVA Past Surgical History urostomy back surgery partial bowel resection (Safia Apodaca) Coded Allergies: amlodipine (Verified Allergy, Severe, 04/25/17) atorvastatin (Verified Allergy, Severe, 04/25/17) codeine (Verified Allergy, Severe, nausea , 04/25/17) dimenhydrinate (Verified Allergy, Severe, Confusion, 04/25/17) simvastatin (Verified Allergy, Severe, 04/25/17) zolpidem (Verified Allergy, Severe, Confusion, 04/25/17) cephalexin (Verified Allergy, Intermediate, Rash, 04/25/17) Family History CVD Social History denies toxic habits (Safia Apodaca) Review of Systems Constitutional: DENIES: Fever Endocrine: DENIES: Polydipsia Eyes: DENIES: Blurred vision Ears, nose, mouth, throat: COMPLAINS OF: Hoarseness Respiratory: DENIES: Cough Cardiovascular: DENIES: Chest pain Gastrointestinal: COMPLAINS OF: Difficulty Swallowing, DENIES: Abdominal pain, Diarrhea, Nausea, Vomiting, Odynophagia Genitourinary: DENIES: Hematuria Musculoskeletal: DENIES: Muscle aches Integumentary: DENIES: Abnormal pigmentation Hematologic/lymphatic: DENIES: Bruising Immunologic/allergic: DENIES: Eczema Neurologic: DENIES: Headache Psychiatric: DENIES: Confusion (Safia Apodaca) GI Exam Vitals I&O Vital Signs Date Time Temp Pulse Resp B/P (MAP) Pulse Ox O2 Delivery O2 Flow Rate FiO2 04/25/17 15:35 74 18 167/85 (112) 98 04/25/17 14:17 80 19 171/83 (112) 99 Room Air 04/25/17 14:14 96 Room Air 04/25/17 11:18 97.7 80 18 151/68 (95) 100 Imaging Last Impressions Chest X-Ray 04/25/17 0000 Signed Impressions: Service Date/Time: Tuesday, April 25, 2017 14:39 - CONCLUSION: 1. No acute abnormality or significant interval change. Taz Loomis MD Laboratory Test 04/25/17 13:05 White Blood Count 9.1 TH/MM3 Red Blood Count 3.84 MIL/MM3 Hemoglobin 8.6 GM/DL Hematocrit 28.1 % Mean Corpuscular Volume 73.2 FL Mean Corpuscular Hemoglobin 22.4 PG Mean Corpuscular Hemoglobin Concent 30.6 % Red Cell Distribution Width 19.8 % Platelet Count 242 TH/MM3 Mean Platelet Volume 7.6 FL Neutrophils (%) (Auto) 68.2 % Lymphocytes (%) (Auto) 19.8 % Monocytes (%) (Auto) 9.2 % Eosinophils (%) (Auto) 1.4 % Basophils (%) (Auto) 1.4 % Neutrophils # (Auto) 6.2 TH/MM3 Lymphocytes # (Auto) 1.8 TH/MM3 Monocytes # (Auto) 0.8 TH/MM3 Eosinophils # (Auto) 0.1 TH/MM3 Basophils # (Auto) 0.1 TH/MM3 CBC Comment DIFF FINAL Differential Comment Prothrombin Time 41.5 SEC Prothromb Time International Ratio 4.1 RATIO Activated Partial Thromboplast Time 33.1 SEC Blood Urea Nitrogen 28 MG/DL Creatinine 0.93 MG/DL Random Glucose 326 MG/DL Total Protein 6.9 GM/DL Albumin 3.0 GM/DL Calcium Level 8.8 MG/DL Alkaline Phosphatase 316 U/L Aspartate Amino Transf (AST/SGOT) 37 U/L Alanine Aminotransferase (ALT/SGPT) 60 U/L Total Bilirubin 0.5 MG/DL Sodium Level 141 MEQ/L Potassium Level 3.7 MEQ/L Chloride Level 105 MEQ/L Carbon Dioxide Level 28.7 MEQ/L Anion Gap 7 MEQ/L Estimat Glomerular Filtration Rate 57 ML/MIN Physical Examination HEENT: PERRL; normocephalic; atraumatic; no jaundice. +hoarse CHEST: CTA CARDIAC: irr HR + murmur ABDOMEN: Soft, nondistended, nontender; no hepatosplenomegaly; bowel sounds are present in all four quadrants. EXTREMITIES: No clubbing, cyanosis, or edema. SKIN: Normal; no rash; no jaundice. [employer]: No focal deficits; alert and oriented times three. (Safia Apodaca) Assessment and Plan Plan ASSESSMENT - dysphagia, bolus sensation - foreign body vs zenkers diverticulum; she has hx zenker's. recent CVA. 12/12/16 she had EGD with findign reflux esohpagitis, small early Zenker's diverticulum can swallow liquids INR is 4.1 will correct prior to procedure PLAN - EGD in am with poss dilatation and possible foreign body removal - obtain consent - clears today - NPO after MN - vit k 10mg now - 2 x FFP in am - rck coags am - further recs to follow pt seen by myself and Dr Peters and this note is on his behalf (Safia Apodaca) Plan Patient was seen and examined, agree with above noted, patient will be reevaluated tomorrow morning with an INR, if it is still elevated she will need to FFP's, and possible upper endoscopy with dilation, patient able to tolerate liquid diet so we will give her bath tonight (Pallavi Peters MD) Safia Apodaca Apr 25, 2017 16:35 Pallavi Peters MD Apr 25, 2017 18:23
[2017-04-25] MEDS ORDERED: SODIUM CHLORIDE 0.9% FLUSH 10 ML FLUSH IV FLUSH PRN (17:00)
[2017-04-25] MEDS ORDERED: NALOXONE HCL 0.4 MG/ML AMP IV PUSH PRN (17:00)
--- NOTE | 2017-04-25 17:24 | HHI.HP ---
[facility] Primary [facility] Physician Arnie Trevizo MD Admission Diagnosis Esophageal FB Diagnoses: Chief Complaint: Nausea vomiting difficulty swallowing Travel History International Travel<30 Days: No Contact w/Intl Traveler <30 Da: No Traveled to Known Affected Are: No History of Present Illness 86-year-old white female with a history of previous bladder cancer, breast cancer and colon cancer was sent to the emergency room by Dr. Gaytan due to patient's complaint of worsening difficulty swallowing worse for the past 3 days leading to her vomiting this morning. She states that she had this previous sensation and has difficulty swallowing solid foods. 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 She states that she has had previous EGDs and dilatations in the past. She denies any recent diarrhea or constipation. She has not had any bloody stools. Review of Systems Constitutional: COMPLAINS OF: Change in appetite, DENIES: Fatigue, Fever, Chills Endocrine: DENIES: Heat/cold intolerance Eyes: DENIES: Blurred vision, Eye pain, Vision loss Ears, nose, mouth, throat: DENIES: Hearing loss, Nasal discharge, Throat pain, Ear Pain, Sinus Pain Respiratory: DENIES: Cough, Shortness of breath Cardiovascular: DENIES: Chest pain, Palpitations, Dyspnea on Exertion, Lower Extremity Edema Gastrointestinal: COMPLAINS OF: Nausea, Vomiting, DENIES: Abdominal pain, Black stools, Bloody stools, Constipation, Diarrhea Genitourinary: DENIES: Dysuria Musculoskeletal: DENIES: Joint pain, Muscle aches, Stiffness Integumentary: DENIES: Rash Hematologic/lymphatic: COMPLAINS OF: Bruising, DENIES: Lymphadenopathy Immunologic/allergic: DENIES: Eczema Neurologic: DENIES: Headache, Localized weakness, Paresthesias Psychiatric: DENIES: Anxiety, Depression, Suicidal Ideation Past Family Social History Past Medical History Atrial fibrillation Hypothyroidism Hyperlipidemia breast ca -history of radiation treatment bladder ca s/p urostomy colon ca s/p partial colectomy PE DVT COPD TIA CVA Past Surgical History urostomy back surgery partial bowel resection Cholecystectomy Hysterectomy Laminectomy Left lumpectomy Reported Medications Nitrofurantoin Monohydrate Macrocrystals (Nitrofurantoin Monoh/Nitrofur Macro) 100 Mg Cap 100 Mg PO HS Imodium A-D (Loperamide HCl) 2 Mg Capsule 2 Mg PO DIRECTED PRN One capsule after each loose stool. Not to exceed 8 tablets per day. Colace (Docusate Sodium) 100 Mg Capsule 1-2 Tab PO DAILY PRN Duoneb (Ipratropium-Albuterol Neb) 0.5-2.5 Mg/3 Ml Neb 1 Nebule INH Q6HR NEB Morphine ER (Morphine Sulfate) 15 Mg Tab 15 Mg PO Q8H PRN Vitamin D-1000 (Cholecalciferol) 1,000 Unit Tab 2,000 Units PO NOON Jantoven (Warfarin) 5 Mg Tab 5 Mg PO DAILY Benzonatate 100 Mg Cap 100 Mg PO DIRECTED PRN Morphine IR (Morphine Sulfate) 15 Mg Tab 15 Mg PO DIRECTED PRN Prednisone 10 Mg Tab 10 Mg PO DAILY Prednisone 5 Mg Tab 5 Mg PO HS Mirtazapine 45 Mg Tab 45 Mg PO HS Pravastatin 10 Mg Tab 10 Mg PO HS Montelukast (Montelukast Sodium) 10 Mg Tab 10 Mg PO HS Restasis Multidose Opth (Cyclosporine Opth) 0.05% Emul 1 Drop EACH EYE BID Symbicort Inh (Budesonide/Formoterol Fumarate) 80-4.5 Mcg/Act Aero 2 Puff INH Q12HR Hydralazine HCl 25 Mg Tablet 25 Mg PO TID Paroxetine (Paroxetine HCl) 30 Mg Tab 30 Mg PO DAILY Levothyroxine (Levothyroxine Sodium) 137 Mcg Tab 137 Mcg PO DAILY Atenolol 50 Mg Tab 50 Mg PO DAILY Pantoprazole (Pantoprazole Sodium) 40 Mg Tab 40 Mg PO DAILY Anastrozole 1 Mg Tab 1 Mg PO DAILY Lisinopril 20 Mg Tab 20 Mg PO BID Zofran (Ondansetron HCl) 4 Mg Tab 4 Mg PO Q6HR PRN Allergies: Coded Allergies: amlodipine (Verified Allergy, Severe, 04/25/17) atorvastatin (Verified Allergy, Severe, 04/25/17) codeine (Verified Allergy, Severe, nausea , 04/25/17) dimenhydrinate (Verified Allergy, Severe, Confusion, 04/25/17) simvastatin (Verified Allergy, Severe, 04/25/17) zolpidem (Verified Allergy, Severe, Confusion, 04/25/17) cephalexin (Verified Allergy, Intermediate, Rash, 04/25/17) Family History CVD Social History denies toxic habits Physical Exam Vital Signs Vital Signs Date Time Temp Pulse Resp B/P (MAP) Pulse Ox O2 Delivery O2 Flow Rate FiO2 04/25/17 15:35 74 18 167/85 (112) 98 04/25/17 14:17 80 19 171/83 (112) 99 Room Air 04/25/17 14:14 96 Room Air 04/25/17 11:18 97.7 80 18 151/68 (95) 100 Physical Exam GENERAL: This is a well-nourished, well-developed patient, in no apparent distress. SKIN: No rashes, ecchymoses or lesions. Cool and dry. HEAD: Atraumatic. Normocephalic. No temporal or scalp tenderness. EYES: Pupils equal round and reactive. Extraocular motions intact. No scleral icterus. No injection or drainage. ENT: Nose without bleeding, purulent drainage or septal hematoma. Throat without erythema, tonsillar hypertrophy or exudate. Uvula midline. Airway patent. NECK: Trachea midline. No JVD or lymphadenopathy. Supple, nontender, no meningeal signs. CARDIOVASCULAR: irregular rate and rhythm RESPIRATORY: Clear to auscultation. Breath sounds equal bilaterally. No wheezes , rales, or rhonchi. GASTROINTESTINAL: Abdomen soft, non-tender, nondistended. Urostomy pouch in place. Normoactive bowel sounds. MUSCULOSKELETAL: Extremities without clubbing, cyanosis, or edema. NEUROLOGICAL: Awake and alert to person place time with mild expressive aphasia. Cranial nerves II through XII intact. Motor and sensory grossly within normal limits. Laboratory Laboratory Tests Test 04/25/17 13:05 White Blood Count 9.1 Red Blood Count 3.84 Hemoglobin 8.6 Hematocrit 28.1 Mean Corpuscular Volume 73.2 Mean Corpuscular Hemoglobin 22.4 Mean Corpuscular Hemoglobin Concent 30.6 Red Cell Distribution Width 19.8 Platelet Count 242 Mean Platelet Volume 7.6 Neutrophils (%) (Auto) 68.2 Lymphocytes (%) (Auto) 19.8 Monocytes (%) (Auto) 9.2 Eosinophils (%) (Auto) 1.4 Basophils (%) (Auto) 1.4 Neutrophils # (Auto) 6.2 Lymphocytes # (Auto) 1.8 Monocytes # (Auto) 0.8 Eosinophils # (Auto) 0.1 Basophils # (Auto) 0.1 CBC Comment DIFF FINAL Differential Comment Prothrombin Time 41.5 Prothromb Time International Ratio 4.1 Activated Partial Thromboplast Time 33.1 Blood Urea Nitrogen 28 Creatinine 0.93 Random Glucose 326 Total Protein 6.9 Albumin 3.0 Calcium Level 8.8 Alkaline Phosphatase 316 Aspartate Amino Transf (AST/SGOT) 37 Alanine Aminotransferase (ALT/SGPT) 60 Total Bilirubin 0.5 Sodium Level 141 Potassium Level 3.7 Chloride Level 105 Carbon Dioxide Level 28.7 Anion Gap 7 Estimat Glomerular Filtration Rate 57 Result Diagram: 04/25/17 1305 04/25/17 1305 Imaging Last Impressions Chest X-Ray 04/25/17 0000 Signed Impressions: Service Date/Time: Tuesday, April 25, 2017 14:39 - CONCLUSION: 1. No acute abnormality or significant interval change. MD Alisson Jaquez VTE Risk Assessment Caprini VTE Risk Assessment: Mod/High Risk (score >= 2) Caprini Risk Assessment Model Point Value = 1 Point Value = 2 Point Value = 3 Point Value = 5 Age 41-60 Minor surgery BMI > 25 kg/m2 Swollen legs Varicose veins or History of unexplained or recurrent spontaneous Oral contraceptives or hormone replacement Sepsis (< 1 month) Serious lung disease, including pneumonia (< 1 month) Abnormal pulmonary function Acute myocardial infarction Congestive heart failure (< 1 month) History of inflammatory bowel disease Medical patient at bed rest Age 61-74 Arthroscopic surgery Major open surgery (> 45 min) Laparoscopic surgery (> 45 min) Malignancy Confined to bed (> 72 hours) Immobilizing plaster cast Central venous access Age >= 75 History of VTE Family history of VTE Factor V Leiden Prothrombin [id number] Lupus anticoagulant Anticardiolipin antibodies Elevated serum homocysteine Heparin-induced thrombocytopenia Other congenital or acquired thrombophilia Stroke (< 1 month) Elective arthroplasty Hip, pelvis, or leg fracture Acute spinal cord injury (< 1 month) Prophylaxis Regimen Total Risk Factor Score Risk Level Prophylaxis Regimen 0-1 Low Early ambulation 2 Moderate Order ONE of the following: *Sequential Compression Device (SCD) *Heparin 5000 units SQ BID 3-4 Higher Order ONE of the following medications: *Heparin 5000 units SQ TID *Enoxaparin/Lovenox 40 mg SQ daily (WT < 150 kg, CrCl > 30 mL/min) *Enoxaparin/Lovenox 30 mg SQ daily (WT < 150 kg, CrCl > 10-29 mL/min) *Enoxaparin/Lovenox 30 mg SQ BID (WT < 150 kg, CrCl > 30 mL/min) AND/OR *Sequential Compression Device (SCD) 5 or more Highest Order ONE of the following medications: *Heparin 5000 units SQ TID (Preferred with Epidurals) *Enoxaparin/Lovenox 40 mg SQ daily (WT < 150 kg, CrCl > 30 mL/min) *Enoxaparin/Lovenox 30 mg SQ daily (WT < 150 kg, CrCl > 10-29 mL/min) *Enoxaparin/Lovenox 30 mg SQ BID (WT < 150 kg, CrCl > 30 mL/min) AND *Sequential Compression Device (SCD) Assessment and Plan Assessment and Plan 1. dysphagia with vomiting with a history of previous Zenker's diverticulum and esophagitis-GI service recommended clear liquids overnight and n.p.o. in the morning for EGD with possible dilatation and rule out foreign body removal. Continue supportive care IV fluid hydration. 2. History of PE and DVT - hold Coumadin and monitor INR. Vitamin K was ordered by GI today. 3. COPD history-continue home nebs. 4. History of atrial fibrillation -currently rate controlled, continue atenolol 5. Hypothyroidism -continue with levothyroxine 6. Hyperglycemia, possibly due to [id number] to monitor blood sugar with sliding scale insulin 6. DVT prophylaxis -Coumadin on hold for pending procedure. Today's INR is 4.0 Clarissa Meyer MD Apr 25, 2017 17:24
[2017-04-25] MEDS ORDERED: DEXTROSE 50% IN WATER 50 ML VIAL(D50) IV PUSH PRN (17:30)
[2017-04-25] MEDS ORDERED: GLUCAGON 1 MG/ML VIAL OTHER PRN (17:30)
[2017-04-25] MEDS ORDERED: PILL SPLITTER OTHER PRN (18:45)
[2017-04-25] MEDS: RESP: ALBUTEROL 2.5 MG/IPRATROPIUM 0.5 MG NEB (SCH) INH (19:34)
[2017-04-25] MEDS: hydrALAZINE HCL 25 MG TAB PO SCH (20:32)
[2017-04-25] MEDS: INSULIN ASPART SUPPLEMENTAL SCALE SQ SCH (21:00)
[2017-04-25] MEDS ORDERED: PT:CYCLOSPORINE OPTH SOL EACH EYE SCH (21:00)
[2017-04-25] MEDS ORDERED: CYCLOSPORINE OPTH EACH EYE SCH (21:00)
[2017-04-25] MEDS: NITROFURANTOIN MONOHYD MACROCR 100 MG CAP PO SCH (22:52)
[2017-04-25] MEDS: LISINOPRIL 20 MG TAB PO SCH (22:53)
[2017-04-25] MEDS: MIRTAZAPINE 15 MG TAB PO SCH (22:54)
[2017-04-25] MEDS: PRAVASTATIN SOD 10 MG TAB PO SCH (22:54)
[2017-04-25] MEDS: predniSONE 5 MG TAB PO SCH (22:54)
[2017-04-25] MEDS: MONTELUKAST SODIUM 10 MG TAB PO SCH (22:55)
[2017-04-25] MEDS: SODIUM CHLORIDE 0.9% FLUSH 10 ML FLUSH IV FLUSH SCH (22:55)
[2017-04-26] VITALS (11 sets, daily range): BP systolic 116–181; BP diastolic 56–86; PULSE 74–87; RESP 15–22; TEMP 97.4–98.9; O2SAT 94–99
[2017-04-26] MEDS: RESP: ALBUTEROL 2.5 MG/IPRATROPIUM 0.5 MG NEB (SCH) INH ×4 (03:21→21:26)
[2017-04-26] MEDS: LEVOTHYROXINE SODIUM 112 MCG TAB PO SCH (06:03)
[2017-04-26] MEDS: LEVOTHYROXINE SODIUM 25 MCG TAB PO SCH (06:03)
[2017-04-26 07:39] LABS: INTERNATIONAL NORMALIZED RATIO 1.7 RATIO
[2017-04-26] MEDS: INSULIN ASPART SUPPLEMENTAL SCALE SQ SCH ×4 (08:23→22:51)
[2017-04-26] MEDS: MORPHINE SULFATE 15 MG CONTROLLED RELEASE TAB PO PRN ×2 (08:41→17:12)
[2017-04-26] MEDS ORDERED: NON-FORMULARY DRUG (Paroxetine 30 MG) PO SCH (09:00)
[2017-04-26] MEDS ORDERED: NON-FORMULARY DRUG (Levothyroxine 137 MCG) PO SCH (09:00)
--- NOTE | 2017-04-26 09:29 | HHI.PR ---
Subjective Remarks 86-year-old white female with a history of previous bladder cancer, breast cancer and colon cancer was sent to the emergency room by Dr. Gaytan due to patient's complaint of worsening difficulty swallowing worse for the past 3 days leading to her vomiting this morning. She states that she had this previous sensation and has difficulty swallowing solid foods. 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 She states that she has had previous EGDs and dilatations in the past. She denies any recent diarrhea or constipation. She has not had any bloody stools. 04-26 PATIENT IS SCHEDULED TO GO FOR EGD TODAY SOMETIME HAD VITAMIN K YESTERDAY AND WILL GIVE FFP 1 UNIT TODAY DW RN AND PATIENT HAD EGD TODAY SEE RESULTS Objective Vitals Vital Signs Date Time Temp Pulse Resp B/P (MAP) Pulse Ox O2 Delivery O2 Flow Rate FiO2 04/26/17 09:16 97.4 77 15 141/65 95 04/26/17 07:38 97.4 74 16 176/75 (108) 94 04/25/17 22:45 97.9 76 18 144/64 (90) 95 04/25/17 20:11 98.1 71 17 149/63 (91) 97 04/25/17 18:16 99.0 87 18 155/65 (95) 98 04/25/17 18:13 04/25/17 17:26 77 19 169/84 (112) 99 Room Air 04/25/17 15:35 74 18 167/85 (112) 98 04/25/17 14:17 80 19 171/83 (112) 99 Room Air 04/25/17 14:14 96 Room Air 04/25/17 11:18 97.7 80 18 151/68 (95) 100 I/O 04/25/17 04/25/17 04/25/17 04/26/17 04/26/17 04/26/17 07:00 15:00 23:00 07:00 15:00 23:00 Output Total 450 ml Balance -450 ml Output Urine Total 450 ml Result Diagram: 04/25/17 1305 04/25/17 1305 Other Results Laboratory Tests Test 04/25/17 13:05 04/26/17 06:25 White Blood Count 9.1 TH/MM3 Red Blood Count 3.84 MIL/MM3 Hemoglobin 8.6 GM/DL Hematocrit 28.1 % Mean Corpuscular Volume 73.2 FL Mean Corpuscular Hemoglobin 22.4 PG Mean Corpuscular Hemoglobin Concent 30.6 % Red Cell Distribution Width 19.8 % Platelet Count 242 TH/MM3 Mean Platelet Volume 7.6 FL Neutrophils (%) (Auto) 68.2 % Lymphocytes (%) (Auto) 19.8 % Monocytes (%) (Auto) 9.2 % Eosinophils (%) (Auto) 1.4 % Basophils (%) (Auto) 1.4 % Neutrophils # (Auto) 6.2 TH/MM3 Lymphocytes # (Auto) 1.8 TH/MM3 Monocytes # (Auto) 0.8 TH/MM3 Eosinophils # (Auto) 0.1 TH/MM3 Basophils # (Auto) 0.1 TH/MM3 CBC Comment DIFF FINAL Differential Comment Prothrombin Time 41.5 SEC 17.0 SEC Prothromb Time International Ratio 4.1 RATIO 1.7 RATIO Activated Partial Thromboplast Time 33.1 SEC Blood Urea Nitrogen 28 MG/DL Creatinine 0.93 MG/DL Random Glucose 326 MG/DL Total Protein 6.9 GM/DL Albumin 3.0 GM/DL Calcium Level 8.8 MG/DL Alkaline Phosphatase 316 U/L Aspartate Amino Transf (AST/SGOT) 37 U/L Alanine Aminotransferase (ALT/SGPT) 60 U/L Total Bilirubin 0.5 MG/DL Sodium Level 141 MEQ/L Potassium Level 3.7 MEQ/L Chloride Level 105 MEQ/L Carbon Dioxide Level 28.7 MEQ/L Anion Gap 7 MEQ/L Estimat Glomerular Filtration Rate 57 ML/MIN Imaging Last Impressions Chest X-Ray 04/25/17 0000 Signed Impressions: Service Date/Time: Tuesday, April 25, 2017 14:39 - CONCLUSION: 1. No acute abnormality or significant interval change. Taz Loomis MD Objective Remarks GENERAL: This is a well-nourished, well-developed patient, in no apparent distress. SKIN: No rashes, ecchymoses or lesions. Cool and dry. HEAD: Atraumatic. Normocephalic. No temporal or scalp tenderness. EYES: Pupils equal round and reactive. Extraocular motions intact. No scleral icterus. No injection or drainage. ENT: Nose without bleeding, purulent drainage or septal hematoma. Throat without erythema, tonsillar hypertrophy or exudate. Uvula midline. Airway patent. NECK: Trachea midline. No JVD or lymphadenopathy. Supple, nontender, no meningeal signs. CARDIOVASCULAR: irregular rate and rhythm RESPIRATORY: Clear to auscultation. Breath sounds equal bilaterally. No wheezes , rales, or rhonchi. GASTROINTESTINAL: Abdomen soft, non-tender, nondistended. Urostomy pouch in place. Normoactive bowel sounds. MUSCULOSKELETAL: Extremities without clubbing, cyanosis, or edema. NEUROLOGICAL: Awake and alert to person place time with mild expressive aphasia. Cranial nerves II through XII intact. Motor and sensory grossly within normal limits. Insight and judgment is limited, mood and behavior somewhat appropriate Procedures EGD PROCEDURE REPORT EXAM DATE: 04/26/2017 PATIENT NAME: Bonnie Hill MR #: [id number] BIRTHDATE: 1930 ATTENDING: Bradley Mendoza MD ORDER #: [id number] MINE SURVEYOR: Claudine Landrum and Ladarius Abdullahi STATUS: inpatient INDICATIONS: The patient is a 86 yr old female here for an EGD due to dysphagia PROCEDURE PERFORMED: EGD, diagnostic MEDICATIONS: None and Per Anesthesia. TOPICAL ANESTHETIC: CONSENT: The patient understands the risks and benefits of the procedure and understands that these risks include, but are not limited to: sedation, allergic reaction, infection, perforation and/or bleeding. Alternative means of evaluation and treatment include, among others: physical exam, x-rays, and/or surgical intervention. The patient elects to proceed with this endoscopic procedure. medical equipment was checked for proper function. Hand hygiene and appropriate measures for infection prevention was taken. After the risks, benefits and alternatives of the procedure were thoroughly explained, Informed consent was verified, confirmed and timeout was successfully executed by the treatment team. The patient was anesthetized with topical anesthesia and the EC-3490Li (Pedi C) endoscope was introduced through the mouth and advanced to the second portion of the duodenum. Retroflexed views revealed a hiatal hernia The gastroscope was then slowly withdrawn and removed. ESOPHAGUS: A zenker's diverticulum measuring 1cm was noted in mid oropharynx. Cockscrew esophagus, no foreign body. STOMACH: There was mild gastritis in the gastric antrum. DUODENUM: The duodenal mucosa appeared normal in the bulb and second portion of the duodenum. ADVERSE EVENTS: There were no complications. IMPRESSIONS: 1. Zenker's diverticulum measuring 1cm was noted in mid oropharynx 2. 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 There was mild gastritis in the gastric antrum 4. Normal duodenal mucosa in the bulb and second portion of the duodenum 5. Retroflexed views revealed a hiatal hernia RECOMMENDATIONS: 1. Anti-reflux regimen 2. Continue PPI 3. Xray: BARIUM SWALLOW PATIENT CONDITION: stable DISPOSITION: Inpatient REPEAT EXAM: Return as needed for EGD with dilatation Medications and IVs Current Medications Phytonadione (Mephyton) 10 mg ONCE ONCE PO ; Start 04/25/17 at 16:15; Stop at 16:16; Status UNV Phytonadione (Mephyton Liq) 10 mg ONCE ONCE PO Last administered on 04/25/17at 20:32; Start 04/25/17 at 16:30; Stop 04/25/17 at 16:31; Status DC Sodium Chloride (NS Flush) 2 ml UNSCH PRN IV FLUSH FLUSH AFTER USING IV ACCESS ; Start 04/25/17 at 17:00 Sodium Chloride (NS Flush) 2 ml BID IV FLUSH Last administered on 04/25/17at 22: 55; Start 04/25/17 at 21:00 Naloxone HCl (Narcan Inj) 0.4 mg UNSCH PRN IV PUSH SEE LABEL COMMENTS; Start at 17:00 Anastrozole (Arimidex) 1 mg DAILY PO ; Start 04/26/17 at 09:00 Atenolol (Tenormin) 50 mg DAILY PO ; Start 04/26/17 at 09:00 Hydralazine HCl (Apresoline) 25 mg TID PO Last administered on 04/25/17at 20:32; Start 04/25/17 at 18:00 Albuterol/ Ipratropium (Duoneb Neb) 2.5 ampule Q6HR NEB INH ; Start 04/25/17 at 22:00 Lisinopril (Prinivil) 20 mg BID PO Last administered on 04/25/17at 22:53; Start 04/25/17 at 21:00 Methenamine Mandelate (Mandelamine) 500 mg DAILY PO ; Start 04/26/17 at 09:00 Mirtazapine (Remeron) 45 mg HS PO Last administered on 04/25/17at 22:54; Start at 21:00 Montelukast Sodium (Singulair) 10 mg HS PO Last administered on 04/25/17at 22:55 ; Start 04/25/17 at 21:00 Morphine Sulfate (Oramorph Sr) 15 mg Q8H PRN PO PAIN SCALE 1 TO 10 Last administered on 04/26/17at 08:41; Start 04/25/17 at 17:30 Nitrofurantoin Macrocrystals (Macrobid) 100 mg HS PO Last administered on at 22:52; Start 04/25/17 at 21:00 Pantoprazole Sodium (Protonix) 40 mg DAILY PO ; Start 04/26/17 at 09:00 Pravastatin Sodium (Pravachol) 10 mg HS PO Last administered on 04/25/17at 22:54 ; Start 04/25/17 at 21:00 Prednisone (Deltasone) 5 mg HS PO Last administered on 04/25/17at 22:54; Start at 21:00 Prednisone (Deltasone) 10 mg DAILY PO ; Start 04/26/17 at 09:00 Non-Formulary Medication 1 drop BID EACH EYE ; Start 04/25/17 at 21:00; Status UNV Non-Formulary Medication 137 mcg DAILY PO ; Start 04/26/17 at 09:00; Status UNV Non-Formulary Medication 30 mg DAILY PO ; Start 04/26/17 at 09:00; Status UNV Dextrose (D50w (Vial) Inj) 50 ml UNSCH PRN IV PUSH HYPOGLYCEMIA-SEE COMMENTS; Start 04/25/17 at 17:30 Glucagon (Glucagon Inj) 1 mg UNSCH PRN OTHER HYPOGLYCEMIA-SEE COMMENTS; Start 04/25/17 at 17:30 Insulin Aspart (NovoLOG SUPPLEMENTAL SCALE) 1 ACHS SLIDING SCALE SQ ; Start 04/25/17 at 21:00 Levothyroxine Sodium (Synthroid) 112 mcg DAILY@0600 PO Last administered on 04/26at 06:03; Start 04/26/17 at 06:00 Levothyroxine Sodium (Synthroid) 25 mcg DAILY@0600 PO Last administered on at 06:03; Start 04/26/17 at 06:00 Patient Own Medication PT OWN MED: CYCLOSPORINE O... BID EACH EYE ; Start at 21:00; Status Future Hold Miscellaneous (Pill Splitter) 1 ea UNSCH PRN OTHER SEE LABEL COMMENTS; Start at 18:45 Paroxetine HCl (Paxil) 30 mg DAILY PO ; Start 04/26/17 at 09:00 A/P Assessment and Plan 1. dysphagia with vomiting with a history of previous Zenker's diverticulum and esophagitis-GI service recommended clear liquids overnight and n.p.o. in the morning for EGD with possible dilatation and rule out foreign body removal. Continue supportive care IV fluid hydration. To go for EGD today April 26--SPEGD 2. History of PE and DVT - hold Coumadin and monitor INR. Vitamin K was ordered by GI today. 3. COPD history-continue home nebs. 4. History of atrial fibrillation -currently rate controlled, continue atenolol hold off on anticoagulation 5. Hypothyroidism -continue with levothyroxine 6. Hyperglycemia, possibly due to [id number] to monitor blood sugar with sliding scale insulin 6. DVT prophylaxis -Coumadin on hold for pending procedure. Today's INR is 1.7 had vitamin K and will give FFP 1 unit Discharge Planning Pending GI clearance Andreas Starr DO Apr 26, 2017 09:29
--- NOTE | 2017-04-26 09:45 | EKG ---
Date Performed: 04/25/2017 Time Performed: 14:26:14 PTAGE: 86 years EKG: Sinus rhythm WITH FREQUENT SUPRAVENTRICULAR PREMATURE COMPLEXES ST DEVIATION AND MODERATE T-WAVE ABNORMALITY, CON EMBEDDED NURSE LATERAL ISCHEMIA ABNORMAL ECG PREVIOUS TRACING : 11/26/2016 14.08 DOCTOR: Ry Shipley Interpretating Date/Time 04/26/2017 09:44:01
[2017-04-26] MEDS: ANASTROZOLE 1 MG TAB PO SCH (10:04)
[2017-04-26] MEDS: SODIUM CHLORIDE 0.9% FLUSH 10 ML FLUSH IV FLUSH SCH ×2 (10:04→22:29)
[2017-04-26] MEDS: predniSONE 10 MG TAB PO SCH (10:04)
[2017-04-26] MEDS: PANTOPRAZOLE SOD 40 MG DELAYED RELEASE TAB PO SCH (10:04)
[2017-04-26] MEDS: hydrALAZINE HCL 25 MG TAB PO SCH ×3 (10:05→18:44)
[2017-04-26] MEDS: PARoxetine HCL 20 MG TAB PO SCH (10:05)
[2017-04-26] MEDS: ATENOLOL 50 MG TAB PO SCH (10:05)
[2017-04-26] MEDS: LISINOPRIL 20 MG TAB PO SCH ×2 (10:05→22:30)
[2017-04-26] MEDS: METHENAMINE MANDELATE 500 MG TAB PO SCH (11:37)
[2017-04-26] MEDS ORDERED: LIDOCAINE HCL 1% PF 5 ML SYRINGE OTHER ONE (12:00)
[2017-04-26] MEDS ORDERED: PROPOFOL 200 MG/20 ML AMP IV ONE (12:00)
[2017-04-26] MEDS ORDERED: DIATRIZOATE MEGLUM/DIATRIZOATE SOD 120 ML BTL (for RAD DIAG) PO ONE (12:24)
--- NOTE | 2017-04-26 14:09 | GIPROC ---
[facility] [address] [facility]. [facility], [address] EGD PROCEDURE REPORT EXAM DATE: 04/26/2017 PATIENT NAME: Bonnie Hill MR #: [id number] BIRTHDATE: 1930 ATTENDING: Bradley Mendoza MD ORDER #: [id number] DRIVING TEACHER: Claudine Landrum and Ladarius Abdullahi STATUS: inpatient INDICATIONS: The patient is a 86 yr old female here for an EGD due to dysphagia PROCEDURE PERFORMED: EGD, diagnostic MEDICATIONS: None and Per Anesthesia. TOPICAL ANESTHETIC: CONSENT: The patient understands the risks and benefits of the procedure and understands that these risks include, but are not limited to: sedation, allergic reaction, infection, perforation and/or bleeding. Alternative means of evaluation and treatment include, among others: physical exam, x-rays, and/or surgical intervention. The patient elects to proceed with this endoscopic procedure. medical equipment was checked for proper function. Hand hygiene and appropriate measures for infection prevention was taken. After the risks, benefits and alternatives of the procedure were thoroughly explained, Informed consent was verified, confirmed and timeout was successfully executed by the treatment team. The patient was anesthetized with topical anesthesia and the EC-3490Li (Pedi C) endoscope was introduced through the mouth and advanced to the second portion of the duodenum. Retroflexed views revealed a hiatal hernia The gastroscope was then slowly withdrawn and removed. ESOPHAGUS: A zenker's diverticulum measuring 1cm was noted in mid oropharynx. Cockscrew esophagus, no foreign body. STOMACH: There was mild gastritis in the gastric antrum. DUODENUM: The duodenal mucosa appeared normal in the bulb and second portion of the duodenum. ADVERSE EVENTS: There were no complications. IMPRESSIONS: 1. Zenker's diverticulum measuring 1cm was noted in mid oropharynx 2. 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 There was mild gastritis in the gastric antrum 4. Normal duodenal mucosa in the bulb and second portion of the duodenum 5. Retroflexed views revealed a hiatal hernia RECOMMENDATIONS: 1. Anti-reflux regimen 2. Continue PPI 3. Xray: BARIUM SWALLOW PATIENT CONDITION: stable DISPOSITION: Inpatient REPEAT EXAM: Return as needed for EGD with dilatation Bradley Mendoza MD eSigned: Bradley Mendoza MD 04/26/2017 2:08 PM cc: PATIENT NAME: Bonnie Hill MR#: [id number]
[2017-04-26] MEDS ORDERED: DO NOT ADM ANY ANTICOAGULANT DRUGS PRN (14:12)
--- NOTE | 2017-04-26 17:55 | RADRPT ---
EXAM DATE/TIME: 04/26/2017 16:52 [facility] COMPARISON: No previous studies available for comparison. INDICATIONS : Dysphagia. FLUORO TIME: 1.6 minutes IMAGE COUNT: 10 CONTRAST: 1. Gastrografin (Diatrizoate Meglumine and Diatrizoate Sodium) MEDICAL HISTORY : Chronic obstructive pulmonary disease. Arthritis. Hypertension. Asthma,CAD,CVA,hyperlipidemia,hypothy roid, DVT,PE. CA of pancreas, bladder, breast. SURGICAL HISTORY : Cholecystectomy. CABG Tonsillectomy. Left breast lumpectomy ENCOUNTER: Initial ACUITY: 3 days PAIN SCORE: 0/10 LOCATION: Bilateral throat. FINDINGS: Hotbed Lever Operator view demonstrates cardiomegaly and sternotomy wires. There is atelectasis at the right base. Re al-time fluoroscopy portion of the examination performed by Dr. Andreas Ogden. The patient was given G astrografin to swallow. The esophagus is distended and has a corkscrew appearance there is moderate d ilatation of the upper thoracic and cervical esophagus. The esophagogastric junction is not well-visu alized. 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 The esophagogastric junction not well assessed. Alonzo Mansfield MD on April 26, 2017 at 17:51 Board Certified Radiologist. This report was verified electronically.
[2017-04-26] MEDS: MONTELUKAST SODIUM 10 MG TAB PO SCH (22:29)
[2017-04-26] MEDS: NITROFURANTOIN MONOHYD MACROCR 100 MG CAP PO SCH (22:29)
[2017-04-26] MEDS: predniSONE 5 MG TAB PO SCH (22:30)
[2017-04-26] MEDS: PRAVASTATIN SOD 10 MG TAB PO SCH (22:30)
[2017-04-26] MEDS: MIRTAZAPINE 15 MG TAB PO SCH (22:30)
[2017-04-27 00:01] VITALS: BP 172/77; PULSE 77; RESP 17; TEMP 98.8; O2SAT 97
[2017-04-27] MEDS: RESP: ALBUTEROL 2.5 MG/IPRATROPIUM 0.5 MG NEB (SCH) INH ×2 (03:22→08:14)
[2017-04-27 04:26] VITALS: BP 162/67; PULSE 74; RESP 17; TEMP 98.5; O2SAT 96
[2017-04-27] MEDS: LEVOTHYROXINE SODIUM 25 MCG TAB PO SCH (07:16)
[2017-04-27] MEDS: LEVOTHYROXINE SODIUM 112 MCG TAB PO SCH (07:16)
[2017-04-27 07:52] VITALS: BP 154/67; PULSE 90; RESP 18; TEMP 97.6; O2SAT 99
[2017-04-27] MEDS: INSULIN ASPART SUPPLEMENTAL SCALE SQ SCH (08:00)
--- NOTE | 2017-04-27 08:27 | HHI.GIFU ---
Subjective Remarks Up in bathroom, Patient's awake resting in the bed family present Afebrile No acute pain or complaints Objective Vitals I&O Vital Signs Date Time Temp Pulse Resp B/P (MAP) Pulse Ox O2 Delivery O2 Flow Rate FiO2 04/27/17 07:52 97.6 90 18 154/67 (96) 99 04/27/17 04:26 98.5 74 17 162/67 (98) 96 04/27/17 00:01 98.8 77 17 172/77 (108) 97 04/26/17 22:30 129/73 (91) 04/26/17 19:50 97.6 87 22 116/56 (76) 99 04/26/17 15:32 98.7 74 20 143/67 (92) 98 04/26/17 14:30 82 16 129/85 (100) 95 Room Air 04/26/17 14:15 83 16 132/81 (98) 96 Room Air 04/26/17 14:04 82 16 139/89 (106) 95 Room Air 04/26/17 13:05 98.4 81 16 181/83 98 04/26/17 12:40 98.9 79 16 179/86 95 04/26/17 11:16 98.5 76 16 150/73 (98) 99 04/26/17 10:13 84 17 161/81 97 04/26/17 09:56 84 152/75 97 04/26/17 09:40 78 15 143/65 97 04/26/17 09:16 97.4 77 15 141/65 95 I/O 04/26/17 04/26/17 04/26/17 04/27/17 04/27/17 04/27/17 07:00 15:00 23:00 07:00 15:00 23:00 Intake Total 326 ml 325 ml Output Total 450 ml 225 ml Balance -450 ml 101 ml 325 ml Intake FFP 321 ml 325 ml Blood Product IV Normal Saline Flush 5 ml Output Urine Total 450 ml 225 ml # Voids 2 Imaging Last Impressions Upper GI/Barium Swallow X-Ray 04/26/17 0000 Signed Impressions: Service Date/Time: Wednesday, April 26, 2017 16:52 - CONCLUSION: 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 The esophagogastric junction not well assessed. Alonzo Mansfield MD Chest X-Ray 04/25/17 0000 Signed Impressions: Service Date/Time: Tuesday, April 25, 2017 14:39 - CONCLUSION: 1. No acute abnormality or significant interval change. Taz Loomis MD Physical Exam HEENT: normocephalic; atraumatic; no jaundice. Throat oral cavity and speech is clear NECK: Neck is supple, no JVD, no lymphadenopathy. CHEST: Mild diminished breath sounds occasional rhonchi clears with cough CARDIAC: Regular rate and rhythm ABDOMEN: Soft, nondistended, nontender; no hepatosplenomegaly; bowel sounds are present in all four quadrants. EXTREMITIES: No clubbing, cyanosis, or edema. SKIN: Thin skin turgor no rash; no jaundice. DUMP GRADER: No focal deficits; alert and oriented times three. Assessment and Plan Plan - Admission Assessment dysphagia, bolus sensation - foreign body vs zenkers diverticulum; she has hx zenker's. recent CVA. 12/12/16 she had EGD with findign reflux esohpagitis, small early Zenker's diverticulum can swallow liquids INR is 4.1 will correct prior to procedure, given Vit. K. 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 Diarrhea one episode this a.m. patient states she has not eaten in several days and drank barium for upper GI test. Does state she has some chronic diarrhea Plan PPI Monitor for any acute bleeding Monitor labs Discussed chewing very slowly, taking small bites, liquids with her food. Keep a diary for any foods which aggravate her swallow. Follow-up in the GI office in 2-4 weeks Supportive care Return as needed for EGD with dilatation. Okay for hospital discharge from GI perspective Patient was seen per myself and Dr. Mendoza, note done on his behalf Radha Shanks Apr 27, 2017 08:27
[2017-04-27] MEDS: ATENOLOL 50 MG TAB PO SCH (08:44)
[2017-04-27] MEDS: MORPHINE SULFATE 15 MG CONTROLLED RELEASE TAB PO PRN (08:45)
[2017-04-27] MEDS: LISINOPRIL 20 MG TAB PO SCH (08:45)
[2017-04-27] MEDS: ANASTROZOLE 1 MG TAB PO SCH (08:45)
[2017-04-27] MEDS: PARoxetine HCL 20 MG TAB PO SCH (08:45)
[2017-04-27] MEDS: predniSONE 10 MG TAB PO SCH (08:45)
[2017-04-27] MEDS: hydrALAZINE HCL 25 MG TAB PO SCH (08:45)
[2017-04-27] MEDS: PANTOPRAZOLE SOD 40 MG DELAYED RELEASE TAB PO SCH (08:45)
[2017-04-27] MEDS: METHENAMINE MANDELATE 500 MG TAB PO SCH (09:00)
[2017-04-27 09:13] LABS: AUTOMATED NEUTROPHIL # 5.9 TH/MM3 (1.8-7.7); BASOPHIL # 0.1 TH/MM3 (0-0.2); BASOPHIL % 1.4 % (0.0-2.0); EOSINOPHIL # 0.1 TH/MM3 (0-0.4); EOSINOPHIL % 1.1 % (0.0-4.0); HEMATOCRIT 26.3 % (35.0-46.0); HEMOGLOBIN 8.2 GM/DL (11.6-15.3); LYMPH % 20.5 % (9.0-44.0); LYMPHOCYTE # 1.8 TH/MM3 (1.0-4.8); MEAN CELL VOLUME 72.5 FL (80.0-100.0); MEAN CORPUSCULAR HEMOGLOBIN 22.6 PG (27.0-34.0); MEAN CORPUSCULAR HGB CONC 31.1 % (32.0-36.0); MEAN PLATELET VOLUME 7.4 FL (7.0-11.0); MONO % 7.5 % (0.0-8.0); MONOCYTE # 0.6 TH/MM3 (0-0.9); NEUT % 69.5 % (16.0-70.0); PLATELET COUNT 227 TH/MM3 (150-450); RED BLOOD COUNT 3.63 MIL/MM3 (4.00-5.30); RED CELL DISTRIBUTION WIDTH 19.8 % (11.6-17.2); WHITE BLOOD COUNT 8.5 TH/MM3 (4.0-11.0)
[2017-04-27 09:28] LABS: INTERNATIONAL NORMALIZED RATIO 1.1 RATIO; PROTHROMBIN TIME - PATIENT 10.8 SEC (9.8-11.6)
--- NOTE | 2017-04-27 10:09 | HHI.PR ---
Subjective Remarks 86-year-old white female with a history of previous bladder cancer, breast cancer and colon cancer was sent to the emergency room by Dr. Gaytan due to patient's complaint of worsening difficulty swallowing worse for the past 3 days leading to her vomiting this morning. She states that she had this previous sensation and has difficulty swallowing solid foods. 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 She states that she has had previous EGDs and dilatations in the past. She denies any recent diarrhea or constipation. She has not had any bloody stools. 3-3 PATIENT IS SCHEDULED TO GO FOR EGD TODAY SOMETIME HAD VITAMIN K YESTERDAY AND WILL GIVE FFP 1 UNIT TODAY BAY RN AND PATIENT HAD EGD TODAY SEE RESULTS 3-4 HAD BARIUM SWALLOW WANTS TO GO HOME HAVING DIARRHEA BAY RN AND FAMILY AND PT HOPEFULLY HOME AFTER CLEARED BY GI STOOL FOR C.DIFFICILE IS PENDING Objective Vitals Vital Signs Date Time Temp Pulse Resp B/P (MAP) Pulse Ox O2 Delivery O2 Flow Rate FiO2 04/27/17 07:52 97.6 90 18 154/67 (96) 99 04/27/17 04:26 98.5 74 17 162/67 (98) 96 04/27/17 00:01 98.8 77 17 172/77 (108) 97 04/26/17 22:30 129/73 (91) 04/26/17 19:50 97.6 87 22 116/56 (76) 99 04/26/17 15:32 98.7 74 20 143/67 (92) 98 04/26/17 14:30 82 16 129/85 (100) 95 Room Air 04/26/17 14:15 83 16 132/81 (98) 96 Room Air 04/26/17 14:04 82 16 139/89 (106) 95 Room Air 04/26/17 13:05 98.4 81 16 181/83 98 04/26/17 12:40 98.9 79 16 179/86 95 04/26/17 11:16 98.5 76 16 150/73 (98) 99 04/26/17 10:13 84 17 161/81 97 I/O 04/26/17 04/26/17 04/26/17 04/27/17 04/27/17 04/27/17 07:00 15:00 23:00 07:00 15:00 23:00 Intake Total 326 ml 325 ml Output Total 450 ml 225 ml Balance -450 ml 101 ml 325 ml Intake FFP 321 ml 325 ml Blood Product IV Normal Saline Flush 5 ml Output Urine Total 450 ml 225 ml # Voids 2 Result Diagram: 04/27/17 0855 04/25/17 1305 Other Results Laboratory Tests Test 04/25/17 13:05 04/26/17 06:25 04/27/17 08:37 04/27/17 08:55 White Blood Count 9.1 TH/MM3 8.5 TH/MM3 Red Blood Count 3.84 MIL/MM3 3.63 MIL/MM3 Hemoglobin 8.6 GM/DL 8.2 GM/DL Hematocrit 28.1 % 26.3 % Mean Corpuscular Volume 73.2 FL 72.5 FL Mean Corpuscular Hemoglobin 22.4 PG 22.6 PG Mean Corpuscular Hemoglobin Concent 30.6 % 31.1 % Red Cell Distribution Width 19.8 % 19.8 % Platelet Count 242 TH/MM3 227 TH/MM3 Mean Platelet Volume 7.6 FL 7.4 FL Neutrophils (%) (Auto) 68.2 % 69.5 % Lymphocytes (%) (Auto) 19.8 % 20.5 % Monocytes (%) (Auto) 9.2 % 7.5 % Eosinophils (%) (Auto) 1.4 % 1.1 % Basophils (%) (Auto) 1.4 % 1.4 % Neutrophils # (Auto) 6.2 TH/MM3 5.9 TH/MM3 Lymphocytes # (Auto) 1.8 TH/MM3 1.8 TH/MM3 Monocytes # (Auto) 0.8 TH/MM3 0.6 TH/MM3 Eosinophils # (Auto) 0.1 TH/MM3 0.1 TH/MM3 Basophils # (Auto) 0.1 TH/MM3 0.1 TH/MM3 CBC Comment DIFF FINAL DIFF FINAL Differential Comment Prothrombin Time 41.5 SEC 17.0 SEC 10.8 SEC Prothromb Time International Ratio 4.1 RATIO 1.7 RATIO 1.1 RATIO Activated Partial Thromboplast Time 33.1 SEC Blood Urea Nitrogen 28 MG/DL Creatinine 0.93 MG/DL Random Glucose 326 MG/DL Total Protein 6.9 GM/DL Albumin 3.0 GM/DL Calcium Level 8.8 MG/DL Alkaline Phosphatase 316 U/L Aspartate Amino Transf (AST/SGOT) 37 U/L Alanine Aminotransferase (ALT/SGPT) 60 U/L Total Bilirubin 0.5 MG/DL Sodium Level 141 MEQ/L Potassium Level 3.7 MEQ/L Chloride Level 105 MEQ/L Carbon Dioxide Level 28.7 MEQ/L Anion Gap 7 MEQ/L Estimat Glomerular Filtration Rate 57 ML/MIN Imaging Last Impressions Upper GI/Barium Swallow X-Ray 04/26/17 0000 Signed Impressions: Service Date/Time: Wednesday, April 26, 2017 16:52 - CONCLUSION: 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 The esophagogastric junction not well assessed. Alonzo Mansfiled MD Chest X-Ray 04/25/17 0000 Signed Impressions: Service Date/Time: Tuesday, April 25, 2017 14:39 - CONCLUSION: 1. No acute abnormality or significant interval change. Taz Loomis MD Objective Remarks GENERAL: This is a well-nourished, well-developed patient, in no apparent distress. SKIN: No rashes, ecchymoses or lesions. Cool and dry. HEAD: Atraumatic. Normocephalic. No temporal or scalp tenderness. EYES: Pupils equal round and reactive. Extraocular motions intact. No scleral icterus. No injection or drainage. ENT: Nose without bleeding, purulent drainage or septal hematoma. Throat without erythema, tonsillar hypertrophy or exudate. Uvula midline. Airway patent. NECK: Trachea midline. No JVD or lymphadenopathy. Supple, nontender, no meningeal signs. CARDIOVASCULAR: irregular rate and rhythm RESPIRATORY: Clear to auscultation. Breath sounds equal bilaterally. No wheezes , rales, or rhonchi. GASTROINTESTINAL: Abdomen soft, non-tender, nondistended. Urostomy pouch in place. Normoactive bowel sounds. MUSCULOSKELETAL: Extremities without clubbing, cyanosis, or edema. NEUROLOGICAL: Awake and alert to person place time with mild expressive aphasia. Cranial nerves II through XII intact. Motor and sensory grossly within normal limits. Insight and judgment is limited, mood and behavior somewhat appropriate Procedures EGD PROCEDURE REPORT EXAM DATE: 04/26/2017 PATIENT NAME: Bonnie Hill MR #: [id number] BIRTHDATE: 1930 ATTENDING: Bradley Mendoza MD ORDER #: [id number] RECONNAISSANCE CREWMEMBER: Claudine Landrum and Ladarius Abdullahi STATUS: inpatient INDICATIONS: The patient is a 86 yr old female here for an EGD due to dysphagia PROCEDURE PERFORMED: EGD, diagnostic MEDICATIONS: None and Per Anesthesia. TOPICAL ANESTHETIC: CONSENT: The patient understands the risks and benefits of the procedure and understands that these risks include, but are not limited to: sedation, allergic reaction, infection, perforation and/or bleeding. Alternative means of evaluation and treatment include, among others: physical exam, x-rays, and/or surgical intervention. The patient elects to proceed with this endoscopic procedure. medical equipment was checked for proper function. Hand hygiene and appropriate measures for infection prevention was taken. After the risks, benefits and alternatives of the procedure were thoroughly explained, Informed consent was verified, confirmed and timeout was successfully executed by the treatment team. The patient was anesthetized with topical anesthesia and the [id number] (Pedi C) endoscope was introduced through the mouth and advanced to the second portion of the duodenum. Retroflexed views revealed a hiatal hernia The gastroscope was then slowly withdrawn and removed. ESOPHAGUS: A zenker's diverticulum measuring 1cm was noted in mid oropharynx. Cockscrew esophagus, no foreign body. STOMACH: There was mild gastritis in the gastric antrum. DUODENUM: The duodenal mucosa appeared normal in the bulb and second portion of the duodenum. ADVERSE EVENTS: There were no complications. IMPRESSIONS: 1. Zenker's diverticulum measuring 1cm was noted in mid oropharynx 2. 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 There was mild gastritis in the gastric antrum 4. Normal duodenal mucosa in the bulb and second portion of the duodenum 5. Retroflexed views revealed a hiatal hernia RECOMMENDATIONS: 1. Anti-reflux regimen 2. Continue PPI 3. Xray: BARIUM SWALLOW PATIENT CONDITION: stable DISPOSITION: Inpatient REPEAT EXAM: Return as needed for EGD with dilatation Medications and IVs Current Medications Phytonadione (Mephyton) 10 mg ONCE ONCE PO ; Start 04/25/17 at 16:15; Stop at 16:16; Status UNV Phytonadione (Mephyton Liq) 10 mg ONCE ONCE PO Last administered on 04/25/17at 20:32; Start 04/25/17 at 16:30; Stop 04/25/17 at 16:31; Status DC Sodium Chloride (NS Flush) 2 ml UNSCH PRN IV FLUSH FLUSH AFTER USING IV ACCESS ; Start 04/25/17 at 17:00 Sodium Chloride (NS Flush) 2 ml BID IV FLUSH Last administered on 04/26/17 22: 29; Start 04/25/17 at 21:00 Naloxone HCl (Narcan Inj) 0.4 mg UNSCH PRN IV PUSH SEE LABEL COMMENTS; Start at 17:00 Anastrozole (Arimidex) 1 mg DAILY PO Last administered on 04/27/17 08:45; Start 04/26/17 at 09:00 Atenolol (Tenormin) 50 mg DAILY PO Last administered on 04/27/17 08:44; Start 04/26/17 at 09:00 Hydralazine HCl (Apresoline) 25 mg TID PO Last administered on 04/27/17 08:45; Start 04/25/17 at 18:00 Albuterol/ Ipratropium (Duoneb Neb) 2.5 ampule Q6HR NEB INH ; Start 04/25/17 at 22:00 Lisinopril (Prinivil) 20 mg BID PO Last administered on 04/27/17 08:45; Start 04/25/17 at 21:00 Methenamine Mandelate (Mandelamine) 500 mg DAILY PO ; Start 04/26/17 at 09:00 Mirtazapine (Remeron) 45 mg HS PO Last administered on 04/26/17 22:30; Start at 21:00 Montelukast Sodium (Singulair) 10 mg HS PO Last administered on 04/26/17 22:29 ; Start 04/25/17 at 21:00 Morphine Sulfate (Oramorph Sr) 15 mg Q8H PRN PO PAIN SCALE 1 TO 10 Last administered on 04/27/17 08:45; Start 04/25/17 at 17:30 Nitrofurantoin Macrocrystals (Macrobid) 100 mg HS PO Last administered on 22:29; Start 04/25/17 at 21:00 Pantoprazole Sodium (Protonix) 40 mg DAILY PO Last administered on 3/4/18at 08: 45; Start 04/26/17 at 09:00 Pravastatin Sodium (Pravachol) 10 mg HS PO Last administered on 04/26/17 22:30 ; Start 04/25/17 at 21:00 Prednisone (Deltasone) 5 mg HS PO Last administered on 04/26/17at 22:30; Start at 21:00 Prednisone (Deltasone) 10 mg DAILY PO Last administered on 04/27/17at 08:45; Start 04/26/17 at 09:00 Non-Formulary Medication 1 drop BID EACH EYE ; Start 04/25/17 at 21:00; Status UNV Non-Formulary Medication 137 mcg DAILY PO ; Start 04/26/17 at 09:00; Status UNV Non-Formulary Medication 30 mg DAILY PO ; Start 04/26/17 at 09:00; Status UNV Dextrose (D50w (Vial) Inj) 50 ml UNSCH PRN IV PUSH HYPOGLYCEMIA-SEE COMMENTS; Start 04/25/17 at 17:30 Glucagon (Glucagon Inj) 1 mg UNSCH PRN OTHER HYPOGLYCEMIA-SEE COMMENTS; Start 04/25/17 at 17:30 Insulin Aspart (NovoLOG SUPPLEMENTAL SCALE) 1 ACHS SLIDING SCALE SQ Last administered on 04/26/17at 22:51; Start 04/25/17 at 21:00 Levothyroxine Sodium (Synthroid) 112 mcg DAILY@0600 PO Last administered on 04/27at 07:16; Start 04/26/17 at 06:00 Levothyroxine Sodium (Synthroid) 25 mcg DAILY@0600 PO Last administered on at 07:16; Start 04/26/17 at 06:00 Patient Own Medication PT OWN MED: CYCLOSPORINE O... BID EACH EYE ; Start at 21:00; Status Future Hold Miscellaneous (Pill Splitter) 1 ea UNSCH PRN OTHER SEE LABEL COMMENTS; Start at 18:45 Paroxetine HCl (Paxil) 30 mg DAILY PO Last administered on 04/27/17at 08:45; Start 04/26/17 at 09:00 Miscellaneous Information ALL NURSING DEPARTME... UNSCH PRN .XX SEE LABEL COMMENTS; Start 04/26/17 at 14:12; Stop 04/27/17 at 14:11 A/P Assessment and Plan 1. dysphagia with vomiting with a history of previous Zenker's diverticulum and esophagitis-GI service recommended clear liquids overnight and n.p.o. in the morning for EGD with possible dilatation and rule out foreign body removal. Continue supportive care IV fluid hydration. To go for EGD today April 26--SPEGD - SEE REPORT 2. History of PE and DVT - hold Coumadin and monitor INR. Vitamin K was ordered by GI today. 3. COPD history-continue home nebs. 4. History of atrial fibrillation -currently rate controlled, continue atenolol hold off on anticoagulation--RESTART COUMADIN 5. Hypothyroidism -continue with levothyroxine 6. Hyperglycemia, possibly due to [id number] to monitor blood sugar with sliding scale insulin 6. DVT prophylaxis -Coumadin on hold for pending procedure. Today's INR is 1.7 had vitamin K and will give FFP 1 unit Discharge Planning Pending GI clearance Andreas Starr DO Apr 27, 2017 10:09
[2017-04-27] MEDS ORDERED: PANT40TA3 PO (10:14)
[2017-04-27] MEDS ORDERED: ONDANSETRON ODT 4 MG TAB PO PRN (10:15)
[2017-04-27] MEDS ORDERED: CHOLECALCIFEROL (VIT D3) 1000 UNIT TAB PO SCH (10:15)
[2017-04-27] MEDS ORDERED: DOCUSATE SODIUM 100 MG CAP PO PRN (10:15)
[2017-04-27] MEDS ORDERED: LOPERAMIDE HCL 2 MG CAP PO PRN (10:15)
[2017-04-27] MEDS ORDERED: BUDESONIDE-FORMOTEROL 80/4.5 MCG INHALER INH SCH (10:15)
--- NOTE | 2017-04-27 10:15 | HHI.FF ---
Face to Face Verification Diagnosis: (1) Bronchitis (2) Hx of bladder cancer (3) HTN (hypertension) (4) CAD (coronary artery disease) (5) COPD (chronic obstructive pulmonary disease) (6) Anticoagulated by anticoagulation treatment (7) History of bladder cancer (8) Hx of thrombocytopenia Physical Therapy Order: Evaluate and Treat, Improve ambulation, Strength and gait training Occupational Therapy Order: Evaluate and Treat, Improve ADL, Gross motor coordination, Fine motor coordination Home Health Nursing Order: Medical education Signs/symptoms of disease process Diabetic education Nursing assessment with vital signs Home Health Aide Order: To Assist In: Bathing and personal care, supervisor machine setter and meal prep I have seen patient Bonnie Hill on 04/27/17. My clinical findings support the need for the requested home health care services because: Ltd mobility - disease progression Patient has SOB Limited ability to care for self I certify that my clinical findings support that this patient is homebound because: Hx COPD- exertion dyspnea/weakness Unsteady gait/balance Andreas Starr DO Apr 27, 2017 10:15
--- NOTE | 2017-04-27 10:18 | HHI.DS ---
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 Diagnosis: Principal (2) Bronchitis ICD Code: J40 - Bronchitis, not specified as acute or chronic Diagnosis: Secondary Status: Acute (3) Hypothyroidism ICD Code: E03.9 - Hypothyroidism, unspecified Status: Chronic (4) Dysarthria as late effect of cerebrovascular accident (CVA) ICD Code: I69.322 - Dysarthria following cerebral infarction Diagnosis: Secondary Status: Acute (5) Impaired mobility and activities of daily living ICD Code: Z74.09 - Other reduced mobility Diagnosis: Secondary Status: Acute (6) HTN (hypertension) ICD Code: I10 - Essential (primary) hypertension Diagnosis: Secondary Status: Chronic (7) CAD (coronary artery disease) ICD Code: I25.10 - Atherosclerotic heart disease of [place] coronary artery without angina pectoris Diagnosis: Secondary Status: Chronic (8) COPD (chronic obstructive pulmonary disease) ICD Code: J44.9 - Chronic obstructive pulmonary disease, unspecified Diagnosis: Secondary Status: Chronic (9) Anticoagulated by anticoagulation treatment ICD Code: Z79.01 - data storage specialist (current) use of anticoagulants Diagnosis: Secondary Status: Acute (10) History of bladder cancer ICD Code: Z85.51 - Personal history of malignant neoplasm of bladder Diagnosis: Secondary (11) Abdominal pain ICD Code: R10.9 - Unspecified abdominal pain Diagnosis: Secondary Procedures EGD PROCEDURE REPORT EXAM DATE: 04/26/2017 PATIENT NAME: Bonnie Hill MR #: [id number] BIRTHDATE: 1930 ATTENDING: Bradley Mendoza MD ORDER #: [id number] PROTECTION CONSULTANT: Claudine Landrum and Ladarius Abdullahi STATUS: inpatient INDICATIONS: The patient is a 86 yr old female here for an EGD due to dysphagia PROCEDURE PERFORMED: EGD, diagnostic MEDICATIONS: None and Per Anesthesia. TOPICAL ANESTHETIC: CONSENT: The patient understands the risks and benefits of the procedure and understands that these risks include, but are not limited to: sedation, allergic reaction, infection, perforation and/or bleeding. Alternative means of evaluation and treatment include, among others: physical exam, x-rays, and/or surgical intervention. The patient elects to proceed with this endoscopic procedure. medical equipment was checked for proper function. Hand hygiene and appropriate measures for infection prevention was taken. After the risks, benefits and alternatives of the procedure were thoroughly explained, Informed consent was verified, confirmed and timeout was successfully executed by the treatment team. The patient was anesthetized with topical anesthesia and the [id number] (Pedi C) endoscope was introduced through the mouth and advanced to the second portion of the duodenum. Retroflexed views revealed a hiatal hernia The gastroscope was then slowly withdrawn and removed. ESOPHAGUS: A zenker's diverticulum measuring 1cm was noted in mid oropharynx. Cockscrew esophagus, no foreign body. STOMACH: There was mild gastritis in the gastric antrum. DUODENUM: The duodenal mucosa appeared normal in the bulb and second portion of the duodenum. ADVERSE EVENTS: There were no complications. IMPRESSIONS: 1. Zenker's diverticulum measuring 1cm was noted in mid oropharynx 2. 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 There was mild gastritis in the gastric antrum 4. Normal duodenal mucosa in the bulb and second portion of the duodenum 5. Retroflexed views revealed a hiatal hernia RECOMMENDATIONS: 1. Anti-reflux regimen 2. Continue PPI 3. Xray: BARIUM SWALLOW PATIENT CONDITION: stable DISPOSITION: Inpatient REPEAT EXAM: Return as needed for EGD with dilatation Brief History - From Admission 86-year-old white female with a history of previous bladder cancer, breast cancer and colon cancer was sent to the emergency room by Dr. Gaytan due to patient's complaint of worsening difficulty swallowing worse for the past 3 days leading to her vomiting this morning. She states that she had this previous sensation and has difficulty swallowing solid foods. 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 She states that she has had previous EGDs and dilatations in the past. She denies any recent diarrhea or constipation. She has not had any bloody stools. CBC/BMP: 04/27/17 0855 04/25/17 1305 Significant Findings Laboratory Tests Test 04/25/17 13:05 04/26/17 06:25 04/27/17 08:37 04/27/17 08:55 Red Blood Count 3.84 MIL/MM3 (4.00-5.30) 3.63 MIL/MM3 (4.00-5.30) Hemoglobin 8.6 GM/DL (11.6-15.3) 8.2 GM/DL (11.6-15.3) Hematocrit 28.1 % (35.0-46.0) 26.3 % (35.0-46.0) Mean Corpuscular Volume 73.2 FL (80.0-100.0) 72.5 FL (80.0-100.0) Mean Corpuscular Hemoglobin 22.4 PG (27.0-34.0) 22.6 PG (27.0-34.0) Mean Corpuscular Hemoglobin Concent 30.6 % (32.0-36.0) 31.1 % (32.0-36.0) Red Cell Distribution Width 19.8 % (11.6-17.2) 19.8 % (11.6-17.2) Monocytes (%) (Auto) 9.2 % (0.0-8.0) Prothrombin Time 41.5 SEC (9.8-11.6) 17.0 SEC (9.8-11.6) Activated Partial Thromboplast Time 33.1 SEC (24.3-30.1) Blood Urea Nitrogen 28 MG/DL (7-18) Random Glucose 326 MG/DL (74-106) Albumin 3.0 GM/DL (3.4-5.0) Alkaline Phosphatase 316 U/L (45-117) Alanine Aminotransferase (ALT/SGPT) 60 U/L (10-53) Estimat Glomerular Filtration Rate 57 ML/MIN (>89) Imaging Last Impressions Upper GI/Barium Swallow X-Ray 04/26/17 0000 Signed Impressions: Service Date/Time: Wednesday, April 26, 2017 16:52 - CONCLUSION: 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 The esophagogastric junction not well assessed. Alonzo Mansfield MD Chest X-Ray 04/25/17 0000 Signed Impressions: Service Date/Time: Tuesday, April 25, 2017 14:39 - CONCLUSION: 1. No acute abnormality or significant interval change. Taz Bozorgmanesh, MD PE at Discharge GENERAL: This is a well-nourished, well-developed patient, in no apparent distress. SKIN: No rashes, ecchymoses or lesions. Cool and dry. HEAD: Atraumatic. Normocephalic. No temporal or scalp tenderness. EYES: Pupils equal round and reactive. Extraocular motions intact. No scleral icterus. No injection or drainage. ENT: Nose without bleeding, purulent drainage or septal hematoma. Throat without erythema, tonsillar hypertrophy or exudate. Uvula midline. Airway patent. NECK: Trachea midline. No JVD or lymphadenopathy. Supple, nontender, no meningeal signs. CARDIOVASCULAR: irregular rate and rhythm RESPIRATORY: Clear to auscultation. Breath sounds equal bilaterally. No wheezes , rales, or rhonchi. GASTROINTESTINAL: Abdomen soft, non-tender, nondistended. Urostomy pouch in place. Normoactive bowel sounds. MUSCULOSKELETAL: Extremities without clubbing, cyanosis, or edema. NEUROLOGICAL: Awake and alert to person place time with mild expressive aphasia. Cranial nerves II through XII intact. Motor and sensory grossly within normal limits. Insight and judgment is limited, mood and behavior somewhat appropriate Hospital Course 86-year-old white female with a history of previous bladder cancer, breast cancer and colon cancer was sent to the emergency room by Dr. Gaytan due to patient's complaint of worsening difficulty swallowing worse for the past 3 days leading to her vomiting this morning. She states that she had this previous sensation and has difficulty swallowing solid foods. 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 She states that she has had previous EGDs and dilatations in the past. She denies any recent diarrhea or constipation. She has not had any bloody stools. 3-3 PATIENT IS SCHEDULED TO GO FOR EGD TODAY SOMETIME HAD VITAMIN K YESTERDAY AND WILL GIVE FFP 1 UNIT TODAY BAY RN AND PATIENT HAD EGD TODAY SEE RESULTS 3-4 HAD BARIUM SWALLOW WANTS TO GO HOME HAVING DIARRHEA BAY RN AND FAMILY AND PT HOPEFULLY HOME AFTER CLEARED BY GI STOOL FOR C.DIFFICILE IS PENDING Pt Condition on Discharge: Good Discharge Disposition: Disch w/ Home Health Serv Discharge Time: <= 30 minutes Discharge Instructions DIET: Follow Instructions for: Heart Healthy Diet, Diabetic Diet, Coumadin ( Warfarin) Diet Speech Therapy-Diet Recommends: Regular Additional Diet Instructions: DM, COUMADIN, HEART HEALTHY DIET Activities you can perform: Regular-No Restrictions Follow up Referrals: Gastroenterology - 2 Weeks with Ollie Cohen MD Home Health PCP Follow-up - 3-5 Days with Arnie Trevizo MD Changed Medications: Pantoprazole (Pantoprazole) 40 Mg Tab 40 MG PO BID for Reflux, #60 TAB 0 Refills (Changed from: DAILY; 30) Continued Medications: Anastrozole (Anastrozole) 1 Mg Tab 1 MG PO DAILY for Breast Cancer, #30 TAB 0 Refills Atenolol (Atenolol) 50 Mg Tab 50 MG PO DAILY for Blood Pressure Management, #30 TAB 0 Refills Benzonatate (Benzonatate) 100 Mg Cap 100 MG PO DIRECTED PRN for COUGH, CAP 0 Refills Budesonide-Formoterol Inh (Symbicort Inh) 80-4.5 Mcg/Act Aero 2 PUFF INH Q12HR for Asthma Management, #1 INHALER 0 Refills Cholecalciferol (Vitamin D-1000) 1,000 Unit Tab 2000 UNITS PO noon for Nutritional Supplement, #1 BOTTLE 0 Refills Cyclosporine Opth (Restasis Multidose Opth) 0.05% Emul 1 DROP EACH EYE BID for Dry Eye, #1 BOTTLE 0 Refills Docusate Sodium (Colace) 100 Mg Capsule 1-2 TAB PO DAILY PRN for constipation Hydralazine HCl (Hydralazine HCl) 25 Mg Tablet 25 MG PO TID for Blood Pressure Management, #60 TAB 0 Refills Ipratropium-Albuterol Neb (Duoneb) 0.5-2.5 Mg/3 Ml Neb 1 NEBULE INH Q6HR NEB for Breathing Treatment, #120 NEBULE 0 Refills Levothyroxine (Levothyroxine) 137 Mcg Tab 137 MCG PO DAILY for Thyroid, #30 TAB 0 Refills Lisinopril (Lisinopril) 20 Mg Tab 20 MG PO BID, #30 TAB 0 Refills Loperamide (Imodium A-D) 2 Mg Capsule 2 MG PO DIRECTED PRN for DIARRHEA, CAP 0 Refills One capsule after each loose stool. Not to exceed 8 tablets per day. Methenamine Mandelate (Methenamine Mandelate) 500 Mg Tab 500 MG PO DAILY for Infection, #30 TAB 6 Refills Mirtazapine (Mirtazapine) 45 Mg Tab 45 MG PO HS for Depression Control, #30 TAB 0 Refills Montelukast (Montelukast) 10 Mg Tab 10 MG PO HS, #30 TAB 0 Refills Morphine ER (Morphine ER) 15 Mg Tab 15 MG PO Q8H PRN for pain, TAB 0 Refills Morphine IR (Morphine IR) 15 Mg Tab 15 MG PO DIRECTED PRN for PAIN, TAB 0 Refills Nitrofurantoin Monohydrate Macrocrystals (Nitrofurantoin Monohydrate Macrocrystals) 100 Mg Cap 100 MG PO HS for Infection, CAP 0 Refills Ondansetron (Zofran) 4 Mg Tab 4 MG PO Q6HR PRN for NAUSEA OR VOMITING, TAB 0 Refills Paroxetine (Paroxetine) 30 Mg Tab 30 MG PO DAILY, #30 TAB 0 Refills Pravastatin (Pravastatin) 10 Mg Tab 10 MG PO HS for Cholesterol Management, #30 TAB 0 Refills Prednisone (Prednisone) 5 Mg Tab 5 MG PO HS, TAB 0 Refills Prednisone (Prednisone) 10 Mg Tab 10 MG PO DAILY, TAB 0 Refills Warfarin (Jantoven) 5 Mg Tab 5 MG PO DAILY for Blood Clot Prevention, #30 TAB 0 Refills Andreas Starr DO Apr 27, 2017 10:18
[2017-04-27 10:33] LABS: ALBUMIN 2.9 GM/DL (3.4-5.0); ALT (GPT) 56 U/L (10-53); AST (GOT) 56 U/L (15-37); BICARBONATE 27.8 MEQ/L (21.0-32.0); BLOOD UREA NITROGEN 30 MG/DL (7-18); CALCIUM 8.2 MG/DL (8.5-10.1); CHLORIDE 106 MEQ/L (98-107); CREATININE 1.05 MG/DL (0.50-1.00); GLOMERULAR FILTRATION RATE 50 ML/MIN (>89); GLUCOSE,RANDOM 183 MG/DL (74-106); MAGNESIUM 1.9 MG/DL (1.5-2.5); SODIUM (NA) 140 MEQ/L (136-145)
[2017-04-27 10:36] LABS: HEMOGLOBIN A1C 10.3 % (4.3-6.0)
[2017-04-27 10:37] LABS: ALKALINE PHOSPHATASE 260 U/L (45-117); FREE T4 1.71 NG/DL (0.76-1.46); TOTAL BILIRUBIN ADULT 0.8 MG/DL (0.2-1.0); TOTAL PROTEIN 6.5 GM/DL (6.4-8.2)
[2017-04-27] MEDS ORDERED: WARFARIN SOD 5 MG TAB PO SCH (16:00)
== END 2017-04-27 12:25 | disposition home or self-care (01) ==
LOC: NEPE 11:12 → NEDA 17:03 → UNDOADMOB 17:03 → NEPFCDU 18:24 → NEDA 18:24 → UNDODISOB 04-27 12:25
PROVIDERS: ADMIT Hospitalist; ATTEND Hospitalist
DX: R13.10 Dysphagia, unspecified (principal); I49.3 Ventricular premature depolarization; K22.4 Dyskinesia of esophagus; R06.02 Shortness of breath; K22.5 Diverticulum of esophagus, acquired; K44.9 Diaphragmatic hernia without obstruction or gangrene; K29.70 Gastritis, unspecified, without bleeding; R94.31 Abnormal electrocardiogram [ECG] [EKG]; K22.2 Esophageal obstruction; I25.10 Atherosclerotic heart disease of native coronary artery without angina pectoris; I10 Essential (primary) hypertension; J44.9 Chronic obstructive pulmonary disease, unspecified; I48.91 Unspecified atrial fibrillation; E78.00 Pure hypercholesterolemia, unspecified; E03.9 Hypothyroidism, unspecified; R73.9 Hyperglycemia, unspecified; F41.9 Anxiety disorder, unspecified; I69.322 Dysarthria following cerebral infarction; F32.9 Major depressive disorder, single episode, unspecified; M81.0 Age-related osteoporosis without current pathological fracture; M19.90 Unspecified osteoarthritis, unspecified site; Z79.01 Long term (current) use of anticoagulants; Z79.899 Other long term (current) drug therapy; Z86.73 Personal history of transient ischemic attack (TIA), and cerebral infarction without residual deficits; Z85.51 Personal history of malignant neoplasm of bladder; Z85.3 Personal history of malignant neoplasm of breast; Z85.038 Personal history of other malignant neoplasm of large intestine; Z86.718 Personal history of other venous thrombosis and embolism; Z86.711 Personal history of pulmonary embolism
CPT/HCPCS: 00731; 36430; 43235; 71045; 74220; 80053; 82948; 83036; 83735; 84100; 84439; 84443; 85025; 85610; 85730; 86850; 86900; 86901; 86927; 87493; 93005; 99285; G0378; J1815; J7512; P9017; Q9963

== ENCOUNTER 2017-07-15 13:48 | Emergency (ER) | payer MEDICARE ==
[~2017-07-15] VITALS: Ht 157.5 cm; Wt 70.0 kg
[~2017-07-15 13:48] MED LIST changes: -Rolling Walker
[2017-07-15 14:01] VITALS: BP 149/84; PULSE 71; RESP 18; TEMP 98; O2SAT 95
--- NOTE | 2017-07-15 15:49 | PD ---
HPI Chief Complaint: Fall Time Seen by Provider: 15:25 Travel History International Travel<30 days: No Contact w/Intl Traveler<30days: No Traveled to known affect area: No History of Present Illness HPI 87 years old female complains of head injury, neck pain, left ankle and foot pain. Patient states that she fell backward and hit the back of the head yesterday. Patient denies loss of consciousness. Patient denies any headache or visual change. Patient complained of neck pain. Patient states that the pain is sharp pain with radiation to both shoulders. Patient states that she fell again today. Patient complains of sharp pain localized to left ankle left foot. Patient denies any new injury to the head and neck area. Patient denies any chest pain or shortness of breath. Patient denies abdominal pain. Patient denies any focal weakness or numbness of the extremity. Patient has history of COPD, CAD, atrial fibrillation, TIA, CVA, hypothyroidism, hypertension, COPD, recurrent DVT and PE. Patient is on Coumadin. Patient also has history of breast cancer and carcinoid syndrome, iron deficiency anemia. Patient also complained of right knee pain swelling for the past 2 weeks. Patient was seen by local physician recently. PFSH Past Medical History Hx Anticoagulant Therapy: Yes Arthritis: Yes (OSTEO ARTHRITIS) Asthma: Yes Autoimmune Disease: No Blood Disorders: No Anxiety: Yes Depression: Yes Heart Rhythm Problems: No Cancer: Yes (BREAST, BLADDER, BOWEL AND LYMPHNODES @ BOTTOM AORTA) Cardiovascular Problems: Yes High Cholesterol: Yes Chemotherapy: No Chest Pain: No Congestive Heart Failure: No COPD: Yes Cerebrovascular Accident: Yes Coronary Artery Disease: Yes Diabetes: Yes Endocrine: Yes Gastrointestinal Disorders: Yes (ESOPHAGEAL STRICTURE - STRETCHED 3X, gerd) GERD: No Genitourinary: Yes (BOWEL AND BLADDER CA, Urostomy) Headaches: Yes (RECENT HEADACHES THAT START IN NECK AND GO UP THE BACK OF HEAD) Hepatitis: No Hiatal Hernia: No Hypertension: Yes Immune Disorder: No Implanted Vascular Access Dvce: Yes Kidney Stones: No Musculoskeletal: Yes (osteoporosis and arthritis) Neurologic: Yes (RECENT STROKE 11/29/16 AND 12/28) Psychiatric: Yes (anxiety/depression) Reproductive: No Respiratory: Yes Migraines: No Radiation Therapy: Yes (BREAST ( SEED IMPLANT)) Renal Failure: No Seizures: No Sickle Cell Disease: No Sleep Apnea: No Thyroid Disease: Yes (HYPOTHYROID) Ulcer: No Menopausal: Yes Past Surgical History Abdominal Surgery: Yes (hysterectomy AND CHOLECYSTECTOMY, resection of bowel) AICD: No Appendectomy: Yes Arteriovenous Shunt: No Body Medical Devices: UROSTOMY, AVR Cardiac Surgery: Yes (CARDIAC CATH / ENLARGED LYMPHNODES AT BOTTOM OF AORTA, AVR) Cholecystectomy: Yes Ear Surgery: No Endocrine Surgery: No Genitourinary Surgery: Yes (urostomy placement) Gynecologic Surgery: Yes (HYSTERCTOMY) Hysterectomy: Yes Insulin Pump: No Joint Replacement: No Neurologic Surgery: Yes (LAMINECTOMY L 4-5 FUSION) Oral Surgery: Yes (EXTRACTIONS) Pacemaker: No Thoracic Surgery: Yes (L Lumpectomy and node dissection, seedling placement ) Tonsillectomy: Yes Other Surgery: Yes (BREAST, BOWEL AND BLADDER CA / HYSTERCTOMY. CHOLESYTECTOMY AND ENLARGED LYM) Social History Alcohol Use: No Tobacco Use: No Substance Use: No Allergies-Medications (Allergen,Severity, Reaction): Coded Allergies: amlodipine (Verified Allergy, Severe, 07/15/17) atorvastatin (Verified Allergy, Severe, 07/15/17) codeine (Verified Allergy, Severe, nausea , 07/15/17) dimenhydrinate (Verified Allergy, Severe, Confusion, 07/15/17) simvastatin (Verified Allergy, Severe, 07/15/17) zolpidem (Verified Allergy, Severe, Confusion, 07/15/17) cephalexin (Verified Allergy, Intermediate, Rash, 07/15/17) Reported Meds & Prescriptions Reported Meds & Active Scripts Active Pantoprazole (Pantoprazole Sodium) 40 Mg Tab 40 Mg PO BID Methenamine Mandelate 500 Mg Tab 500 Mg PO DAILY Reported Nitrofurantoin Monohydrate Macrocrystals (Nitrofurantoin Monoh/Nitrofur Macro) 100 Mg Cap 100 Mg PO HS Imodium A-D (Loperamide HCl) 2 Mg Capsule 2 Mg PO DIRECTED PRN One capsule after each loose stool. Not to exceed 8 tablets per day. Colace (Docusate Sodium) 100 Mg Capsule 1-2 Tab PO DAILY PRN Duoneb (Ipratropium-Albuterol Neb) 0.5-2.5 Mg/3 Ml Neb 1 Nebule INH Q6HR NEB Morphine ER (Morphine Sulfate) 15 Mg Tab 15 Mg PO Q8H PRN Vitamin D-1000 (Cholecalciferol) 1,000 Unit Tab 2,000 Units PO NOON Jantoven (Warfarin) 5 Mg Tab 5 Mg PO DAILY Benzonatate 100 Mg Cap 100 Mg PO DIRECTED PRN Morphine IR (Morphine Sulfate) 15 Mg Tab 15 Mg PO DIRECTED PRN Prednisone 10 Mg Tab 10 Mg PO DAILY Prednisone 5 Mg Tab 5 Mg PO HS Mirtazapine 45 Mg Tab 45 Mg PO HS Pravastatin 10 Mg Tab 10 Mg PO HS Montelukast (Montelukast Sodium) 10 Mg Tab 10 Mg PO HS Restasis Multidose Opth (Cyclosporine Opth) 0.05% Emul 1 Drop EACH EYE BID Symbicort Inh (Budesonide/Formoterol Fumarate) 80-4.5 Mcg/Act Aero 2 Puff INH Q12HR Hydralazine HCl 25 Mg Tablet 25 Mg PO TID Paroxetine (Paroxetine HCl) 30 Mg Tab 30 Mg PO DAILY Levothyroxine (Levothyroxine Sodium) 137 Mcg Tab 137 Mcg PO DAILY Atenolol 50 Mg Tab 50 Mg PO DAILY Anastrozole 1 Mg Tab 1 Mg PO DAILY Lisinopril 20 Mg Tab 20 Mg PO BID Zofran (Ondansetron HCl) 4 Mg Tab 4 Mg PO Q6HR PRN Review of Systems General / Constitutional: No: Fever Eyes: No: Visual changes HENT: Positive: Neck Pain, No: Headaches Cardiovascular: No: Chest Pain or Discomfort Respiratory: No: Shortness of Breath Gastrointestinal: No: Abdominal Pain Genitourinary: No: Dysuria Musculoskeletal: Positive: Pain Skin: No Rash Neurologic: No: Weakness Psychiatric: No: Depression Endocrine: No: Polydipsia Hematologic/Lymphatic: No: Easy Bruising Physical Exam Narrative GENERAL: Well-nourished, well-developed patient. SKIN: Focused skin assessment warm/dry. HEAD: Normocephalic. Small ecchymotic area on the occipital area of the scalp. EYES: No scleral icterus. No injection or drainage. NECK: Supple, trachea midline. No JVD or lymphadenopathy. Patient has mild to moderate tenderness on palpation paraspinal area cervical spine. No midline tenderness. CARDIOVASCULAR: Regular rate and rhythm without murmurs, gallops, or rubs. RESPIRATORY: Breath sounds equal bilaterally. No accessory muscle use. GASTROINTESTINAL: Abdomen soft, non-tender, nondistended. MUSCULOSKELETAL: No cyanosis, or edema. BACK: Nontender without obvious deformity. No CVA tenderness. Neurologic exam normal. Data Data Last Documented VS Vital Signs Date Time Temp Pulse Resp B/P (MAP) Pulse Ox O2 Delivery O2 Flow Rate FiO2 07/15/17 14:01 98.0 71 18 149/84 (105) 95 Orders Orders Urinalysis - C+S If Indicated (07/15/17 15:38) Complete Blood Count With Diff (07/15/17 15:35) Comprehensive Metabolic Panel (07/15/17 15:35) Prothrombin Time / Inr (Pt) (07/15/17 15:35) Act Partial Throm Time (Ptt) (07/15/17 15:35) Ct Brain W/O Iv Contrast(Rout) (07/15/17 15:35) Iv Access Insert/Monitor (07/15/17 15:35) Ecg Monitoring (07/15/17 15:35) Oximetry (07/15/17 15:35) Ct Cerv Spine W/O Contrast (07/15/17 15:35) Ankle, Complete ([id number]) (07/15/17 15:35) Foot, Complete ([id number]) (07/15/17 15:35) MDM Medical Decision Making Medical Screen Exam Complete: Yes Emergency Medical Condition: Yes Differential Diagnosis Differential diagnosis including head injury, neck injury, extremity injury. Narrative Course 87 years old female with head injury, neck injury, left ankle left foot injury. Status post fall. Patient's on Coumadin. Bruno Retana MD July 15, 2017 15:49
[2017-07-15 16:18] VITALS: RESP 18; O2SAT 98
[2017-07-15 16:29] VITALS: BP 138/65; PULSE 71; RESP 18; O2SAT 97
[2017-07-15 16:48] LABS: BILIRUBIN, URINE NEG (NEG); BLOOD, URINE NEG (NEG); GLUCOSE,URINE NEG (NEG); KETONE, URINE NEG (NEG); MUCUS URINE FEW /lpf (OCC); NITRITE,URINE NEG (NEG); SQUAMOUS EPITHELIAL CELL URINE <1 /hpf (0-5); TRANSITIONAL EPI CELLS, URINE 2 /hpf; URINE COLOR YELLOW (YELLW/STRAW); URINE LEUKOCYTE ESTERASE TRACE (NEG)
[2017-07-15 17:04] LABS: AUTOMATED NEUTROPHIL # 5.1 TH/MM3 (1.8-7.7); BASOPHIL # 0.1 TH/MM3 (0-0.2); BASOPHIL % 1.2 % (0.0-2.0); EOSINOPHIL # 0.1 TH/MM3 (0-0.4); EOSINOPHIL % 1.3 % (0.0-4.0); HEMOGLOBIN 10.4 GM/DL (11.6-15.3); LYMPH % 20.8 % (9.0-44.0); LYMPHOCYTE # 1.6 TH/MM3 (1.0-4.8); MEAN CELL VOLUME 89.9 FL (80.0-100.0); MEAN CORPUSCULAR HEMOGLOBIN 28.4 PG (27.0-34.0); MEAN CORPUSCULAR HGB CONC 31.6 % (32.0-36.0); MONOCYTE # 0.9 TH/MM3 (0-0.9); NEUT % 65.7 % (16.0-70.0); PLATELET COUNT 181 TH/MM3 (150-450); RED BLOOD COUNT 3.67 MIL/MM3 (4.00-5.30); RED CELL DISTRIBUTION WIDTH 26.1 % (11.6-17.2); WHITE BLOOD COUNT 7.8 TH/MM3 (4.0-11.0)
[2017-07-15] MEDS ORDERED: HYDR-3799 PO (17:05)
[2017-07-15] MEDS ORDERED: VITA100018 PO (17:05)
[2017-07-15] MEDS ORDERED: METF500T PO (17:05)
[2017-07-15] MEDS ORDERED: WARF-58 PO (17:05)
[2017-07-15 17:09] LABS: ALBUMIN 2.6 GM/DL (3.4-5.0); ALT (GPT) 83 U/L (10-53); AST (GOT) 69 U/L (15-37); BICARBONATE 28.3 MEQ/L (21.0-32.0); BLOOD UREA NITROGEN 33 MG/DL (7-18); CALCIUM 8.4 MG/DL (8.5-10.1); CHLORIDE 111 MEQ/L (98-107); CREATININE 0.82 MG/DL (0.50-1.00); GLOMERULAR FILTRATION RATE 66 ML/MIN (>89); GLUCOSE,RANDOM 204 MG/DL (74-106); SODIUM (NA) 146 MEQ/L (136-145)
[2017-07-15 17:11] LABS: INTERNATIONAL NORMALIZED RATIO 2.1 RATIO; PROTHROMBIN TIME - PATIENT 21.7 SEC (9.8-11.6)
[2017-07-15 17:12] LABS: ALKALINE PHOSPHATASE 362 U/L (45-117); TOTAL BILIRUBIN ADULT 0.3 MG/DL (0.2-1.0); TOTAL PROTEIN 5.7 GM/DL (6.4-8.2)
--- NOTE | 2017-07-15 17:38 | RADRPT ---
EXAM DATE: 07/15/2017 5:21 PM EDT AGE/SEX: 87 years / Female INDICATIONS: Trauma; patient fell yesterday and today. CLINICAL DATA: This is the patient's initial encounter. Patient reports that signs and symptoms have been present for 2 days and indicates a pain score of 4/10. MEDICAL/SURGICAL HISTORY: Carcinoma, breast. Carcinoma, bladder. Carcinoma, colon. Hypertension, Asthma, COPD, CVA Hysterectomy. RADIATION DOSE: 56.35 CTDI (mGy) [place] [facility] [place]. . TECHNIQUE: CT of the head without contrast. Using automated exposure control and adjustment of the mA and/or kV according to patient size, radiation dose was kept as low as reasonably achievable to ob tain optimal diagnostic quality images. FINDINGS: Stable small densely calcified meningioma in the high convexity left frontal region. Patchy moderate diminished attenuation in periventricular white matter which appears stable and benign. Old lacunar i nfarct in the right lentiform nucleus. No evidence of intracranial hemorrhage. Nothing to suggest acu te infarction. Extracranial structures are benign and intact. CONCLUSION: No acute intracranial injury Electronically signed by: Ho Lal MD 07/15/2017 5:36 PM EDT
--- NOTE | 2017-07-15 17:42 | RADRPT ---
EXAM DATE: 07/15/2017 5:38 PM EDT AGE/SEX: 87 years / Female INDICATIONS: Trauma; patient fell yesterday and today. CLINICAL DATA: This is the patient's initial encounter. Patient reports that signs and symptoms have been present for 2 days and indicates a pain score of 4/10. MEDICAL/SURGICAL HISTORY: Carcinoma, breast. Carcinoma, bladder. Carcinoma, colon. Hypertens ion, Asthma, COPD, Diabetes Hysterectomy. RADIATION DOSE: 18.92 CTDI (mGy) COMPARISON: No prior [facility] exams available for comparison. TECHNIQUE: Contiguous axial images were obtained using helical multirow detector technique. The vol umetric data was post-processed with multiplanar reconstruction in oblique axial, sagittal, and coron al planes. Using automated exposure control and adjustment of the mA and/or kV according to patient s ize, radiation dose was kept as low as reasonably achievable to obtain optimal diagnostic quality main ges. FINDINGS: There is minimal anterolisthesis of C4 relative to C5. C7 and C6 are fused. There is no ev idence of fracture. No bony canal or foraminal compromise is identified. There are degenerative sullivan es with small endplate osteophytes most notably at C7-T1 severe posterior facet arthropathy throughou t, mainly on the left side. There is no evidence of paraspinal hematoma. CONCLUSION: No acute bony injury of the cervical spine Electronically signed by: Ho Lal MD 07/15/2017 5:41 PM EDT
--- NOTE | 2017-07-15 17:51 | RADRPT ---
EXAM DATE: 07/15/2017 5:47 PM EDT AGE/SEX: 87 years / Female INDICATIONS: Right knee pain post fall. CLINICAL DATA: This is the patient's initial encounter. Patient reports that signs and symptoms have been present for 1 day and indicates a pain score of 7/10. MEDICAL/SURGICAL HISTORY: . COPD, Arthritis, HTN, Asthma, CAD, CVA, Hyperlipidemia, Hypothyroid , DVT, PE, CA pancreas, bladder, and breast . Cholecystectomy, CABG, Tonsillectomy, Left breast lump ectomy COMPARISON: No prior [facility] exams available for comparison. FINDINGS: Bony structures are intact and in normal alignment. Joints are intact without dislocation . There are degenerative changes involving the knee joint. There is no evidence of joint effusion. Osseous density is osteopenic. Soft tissues are unremarkable. No radiopaque foreign bodies seen. Vas cular calcifications are seen in the soft tissues. CONCLUSION: 1. There is osteopenia and primary degenerative arthritis throughout the knee joint. 2. No acute fracture or joint dislocation. Electronically signed by: Kip Bernard MD 07/15/2017 5:50 PM EDT
--- NOTE | 2017-07-15 17:52 | RADRPT ---
EXAM DATE: 07/15/2017 5:47 PM EDT AGE/SEX: 87 years / Female INDICATIONS: Left ankle pain post fall. CLINICAL DATA: This is the patient's initial encounter. Patient reports that signs and symptoms have been present for 1 day and indicates a pain score of 6/10. MEDICAL/SURGICAL HISTORY: . COPD, Arthritis, HTN, Asthma, CAD, CVA, Hyperlipidemia, Hypothyroid , DVT, PE, CA pancreas, bladder, and breast . Cholecystectomy, CABG, Tonsillectomy, Left breast lump ectomy COMPARISON: No prior [facility] exams available for comparison. FINDINGS: Bony structures are intact and in normal alignment. Joints are intact without dislocation or significant arthropathy. There is osteopenia of the bony structures. There is diffuse soft tiss ue swelling around the ankle. There is good alignment at the mortise joint. No radiopaque foreign otto dies seen. CONCLUSION: 1. No acute fracture or joint dislocation. 2. Diffuse soft tissue swelling. Electronically signed by: Kip Bernard MD 07/15/2017 5:50 PM EDT
--- NOTE | 2017-07-15 17:53 | RADRPT ---
EXAM DATE: 07/15/2017 5:47 PM EDT AGE/SEX: 87 years / Female INDICATIONS: Left foot pain post fall. CLINICAL DATA: This is the patient's initial encounter. Patient reports that signs and symptoms have been present for 1 day and indicates a pain score of 5/10. MEDICAL/SURGICAL HISTORY: . COPD, Arthritis, HTN, Asthma, CAD, CVA, Hyperlipidemia, Hypothyroid , DVT, PE, CA pancreas, bladder, and breast . Cholecystectomy, CABG, Tonsillectomy, Left breast lump ectomy COMPARISON: No prior [place] exams available for comparison. FINDINGS: There is a nondisplaced fracture involving the distal portion of the fifth metatarsal. The re is osteopenia and degenerative changes involving the foot. No other definite bony fractures are de monstrated. No joint dislocation is demonstrated. There is diffuse soft tissue swelling. No radiopaq ue foreign bodies seen. CONCLUSION: 1. Nondisplaced fracture involving the distal portion of the fifth metatarsal. 2. Osteopenia and degenerative arthritis throughout the foot. Electronically signed by: Kip Bernard MD 07/15/2017 5:52 PM EDT
--- NOTE | 2017-07-15 18:06 | PD ---
Physical Exam Narrative Narrative GENERAL: Well-nourished, well-developed patient. SKIN: Focused skin assessment warm/dry. HEAD: Normocephalic. Small ecchymotic area on the occipital area of the scalp. EYES: No scleral icterus. No injection or drainage. NECK: Supple, trachea midline. No JVD or lymphadenopathy. Patient has mild to moderate tenderness on palpation paraspinal area cervical spine. No midline tenderness. CARDIOVASCULAR: Regular rate and rhythm without murmurs, gallops, or rubs. RESPIRATORY: Breath sounds equal bilaterally. No accessory muscle use. GASTROINTESTINAL: Abdomen soft, non-tender, nondistended. MUSCULOSKELETAL: No cyanosis, or edema. BACK: Nontender without obvious deformity. No CVA tenderness. Neurologic exam normal. Data Data Last Documented VS Vital Signs Date Time Temp Pulse Resp B/P (MAP) Pulse Ox O2 Delivery O2 Flow Rate FiO2 07/15/17 16:29 71 18 138/65 (89) 97 Room Air 07/15/17 14:01 98.0 Orders Orders Urinalysis - C+S If Indicated (07/15/17 15:38) Complete Blood Count With Diff (07/15/17 15:35) Comprehensive Metabolic Panel (07/15/17 15:35) Prothrombin Time / Inr (Pt) (07/15/17 15:35) Act Partial Throm Time (Ptt) (07/15/17 15:35) Ct Brain W/O Iv Contrast(Rout) (07/15/17 15:35) Iv Access Insert/Monitor (07/15/17 15:35) Ecg Monitoring (07/15/17 15:35) Oximetry (07/15/17 15:35) Ct Cerv Spine W/O Contrast (07/15/17 15:35) Ankle, Complete ([id number]) (07/15/17 15:35) Foot, Complete ([id number]) (07/15/17 15:35) Knee, Ltd (1 Or 2vws) (07/15/17 15:45) Urine Culture (07/15/17 16:12) Labs Laboratory Tests Test 07/15/17 16:12 07/15/17 16:41 Urine Color YELLOW Urine Turbidity CLEAR Urine pH 7.0 Urine Specific [place] 1.012 Urine Protein TRACE mg/dL Urine Glucose (UA) NEG mg/dL Urine Ketones NEG mg/dL Urine Occult Blood NEG Urine Nitrite NEG Urine Bilirubin NEG Urine Urobilinogen LESS THAN 2.0 MG/DL Urine Leukocyte Esterase TRACE Urine RBC 1 /hpf Urine WBC 7 /hpf Urine Squamous Epithelial Cells <1 /hpf Urine Transitional Epithelial Cells 2 /hpf Urine Mucus FEW /lpf Microscopic Urinalysis Comment CATH-CULTURE IND White Blood Count 7.8 TH/MM3 Red Blood Count 3.67 MIL/MM3 Hemoglobin 10.4 GM/DL Hematocrit 33.0 % Mean Corpuscular Volume 89.9 FL Mean Corpuscular Hemoglobin 28.4 PG Mean Corpuscular Hemoglobin Concent 31.6 % Red Cell Distribution Width 26.1 % Platelet Count 181 TH/MM3 Mean Platelet Volume 8.0 FL Neutrophils (%) (Auto) 65.7 % Lymphocytes (%) (Auto) 20.8 % Monocytes (%) (Auto) 11.0 % Eosinophils (%) (Auto) 1.3 % Basophils (%) (Auto) 1.2 % Neutrophils # (Auto) 5.1 TH/MM3 Lymphocytes # (Auto) 1.6 TH/MM3 Monocytes # (Auto) 0.9 TH/MM3 Eosinophils # (Auto) 0.1 TH/MM3 Basophils # (Auto) 0.1 TH/MM3 CBC Comment AUTO DIFF Prothrombin Time 21.7 SEC Prothromb Time International Ratio 2.1 RATIO Activated Partial Thromboplast Time 26.9 SEC Blood Urea Nitrogen 33 MG/DL Creatinine 0.82 MG/DL Random Glucose 204 MG/DL Total Protein 5.7 GM/DL Albumin 2.6 GM/DL Calcium Level 8.4 MG/DL Alkaline Phosphatase 362 U/L Aspartate Amino Transf (AST/SGOT) 69 U/L Alanine Aminotransferase (ALT/SGPT) 83 U/L Total Bilirubin 0.3 MG/DL Sodium Level 146 MEQ/L Potassium Level 4.1 MEQ/L Chloride Level 111 MEQ/L Carbon Dioxide Level 28.3 MEQ/L Anion Gap 7 MEQ/L Estimat Glomerular Filtration Rate 66 ML/MIN [facility] Medical Record Reviewed: Yes Supervised Visit with FÁTIMA: No Narrative Course CT brain read by radiologist as no acute intracranial injury (in the body of the report the radiologist does note that there are stable small densely calcified meningioma in the high convexity of the left frontal region. Patchy moderate diminished attenuation in periventricular white matter which is stable and benign. As well as old lacunar infarct in the right lentiform nucleus.) CT C-spine read by radiologist as no acute bony injury of the cervical spine. No evidence of paraspinal hematoma Right knee x-ray read by radiologist as osteopenia and primary degenerative arthritis but without fracture or joint dislocation of right knee Left ankle x-ray was read by radiologist as no acute fracture or joint dislocation but noted diffuse soft tissue swelling Left foot x-ray read by radiologist were he reports a nondisplaced fracture involving the distal portion of the fifth metatarsal, osteopenia and degenerative arthritis throughout the foot. Diagnosis Primary Impression: Scalp contusion Qualified Codes: S00.03XA - Contusion of scalp, initial encounter Additional Impressions: Left ankle sprain Qualified Codes: S93.402A - Sprain of unspecified ligament of left ankle, initial encounter left distal 5th metatarsal fracture,nondisplaced Knee pain, chronic Qualified Codes: M25.562 - Pain in left knee; G89.29 - Other chronic pain cervical sprai Patient Instructions: Ankle Sprain (ED), Cervical Sprain (ED), Foot Fracture in Adults (ED), General Instructions, Scalp Contusion in Adults (ED) Disposition: 01 DISCHARGE HOME Condition: Stable Haroon Mcdermott MD July 15, 2017 18:06
[2017-07-15 18:37] LABS: OVALOCYTES 1+ (NORMAL)
[2017-07-15 18:38] LABS: KERATOCYTES OCC (NORMAL)
== END 2017-07-15 19:06 | disposition home or self-care (01) ==
LOC: NEPD 13:48
DX: S92.355A Nondisplaced fracture of fifth metatarsal bone, left foot, initial encounter for closed fracture (principal); S00.03XA Contusion of scalp, initial encounter; S93.402A Sprain of unspecified ligament of left ankle, initial encounter; S13.4XXA Sprain of ligaments of cervical spine, initial encounter; G89.29 Other chronic pain; E03.9 Hypothyroidism, unspecified; I10 Essential (primary) hypertension; W19.XXXA Unspecified fall, initial encounter; Z79.899 Other long term (current) drug therapy
CPT/HCPCS: 70450; 72125; 73560; 73610; 73630; 80053; 81001; 85025; 85610; 85730; 87086; 99285; L2114

== ENCOUNTER 2017-10-09 09:58 | Inpatient (IN) ==
[2017-10-09 11:12] LABS: Baso % (Auto) 0.4 % (0.0-2.0); Eos % (Auto) 0.2 % (0.0-4.0); Hematocrit 38.2 % (35.0-46.0); Lymph # (Auto) 1.5 th/mm3 (1.0-4.8); Lymph % (Auto) 11.9 % (9.0-44.0); Mean Corpuscular HGB Conc 31.4 % (32.0-36.0); Mean Corpuscular Hemoglobin 28.8 pg (27.0-34.0); Mean Corpuscular Volume 91.8 fL (80.0-100.0); Mean Platelet Volume 8.7 fL (7.0-11.0); Mono % (Auto) 8.1 % (0.0-8.0); Neut # (Auto) 9.7 th/mm3 (1.8-7.7); Neut % (Auto) 79.4 % (16.0-70.0); Platelet Count 257 th/mm3 (150-450); Red Blood Count 4.16 mil/mm3 (4.00-5.30); Red Cell Distribution Width 17.5 % (11.6-17.2); White Blood Count 12.3 th/mm3 (4.0-11.0)
[2017-10-09 11:21] LABS: Prothrombin Time 11.9 sec (9.8-11.6)
--- NOTE | 2017-10-09 11:34 | XR ---
EXAM DATE: 10/09/2017 11:27 AM EDT AGE/SEX: 87 years / Female INDICATIONS: Lethargic for 2 days. CLINICAL DATA: This is the patient's initial encounter. Patient reports that signs and symptoms have been present for 2 days and indicates a pain score of 0/10. MEDICAL/SURGICAL HISTORY: Hypertension. Stroke. Chronic obstructive pulmonary disease. Diabe marcie. . valve repair. COMPARISON: [facility] – [place], CHEST SINGLE AP, 04/25/2017. . FINDINGS: Linear parenchymal opacity in the right lung base. Median sternotomy wires. Cardiomegaly mediastinal contours are stable. New 1 cm sharply demarcated sclerotic lesion in the right proximal humerus. Osse ous structures are otherwise intact. CONCLUSION: 1. Linear parenchymal opacity in the right lung base, likely atelectasis/scarring. 2. New 1 cm sharply demarcated sclerotic lesion in the right proximal humerus concerning for metasta tic disease in this patient with history of rectal and breast CA. Electronically signed by: Taz Loomis MD 10/09/2017 11:32 AM EDT
[2017-10-09 11:40] LABS: Alanine Aminotransferase 243 U/L (10-53); Albumin 2.6 g/dL (3.4-5.0); Alkaline Phosphatase 621 U/L (45-117); Anion Gap 10 meq/L (5-15); Aspartate Aminotransferase 205 U/L (15-37); Blood Urea Nitrogen 67 mg/dL (7-18); Calcium 8.5 mg/dL (8.5-10.1); Carbon Dioxide 17.4 meq/L (21.0-32.0); Chloride 114 meq/L (98-107); Glomerular Filtration Rate 35 mL/min (>89); Glucose,Random 156 mg/dL (74-106); Magnesium 2.3 mg/dL (1.5-2.5); Potassium 5.1 meq/L (3.5-5.1); Sodium 141 meq/L (136-145); Total Protein 6.2 g/dL (6.4-8.2); Troponin I 0.02 ng/mL (0.02-0.05)
[2017-10-09 11:43] LABS: INR 1.2 Ratio
[2017-10-09 11:44] LABS: Creatine Kinase 100 U/L (26-192)
[2017-10-09] MEDS ORDERED: Sodium Chlor 0.9% Inj 500 ML IV.SIG ONE (11:47)
--- NOTE | 2017-10-09 11:47 | ED ---
HPI General Chief complaint: Weakness Stated complaint: Medical Complaint Time Seen by Provider: 10/09/17 10:57 Source: family Mode of arrival: ambulatory Limitations: no limitations History of Present Illness HPI Narrative: 87-year-old female arrives with family due to weakness. Nausea and diarrhea reported especially overnight. The patient at baseline is able to walk with walker dress and bathe herself. She can go shopping with her daughter and hold normal conversations. For the last day and a half or so the patient has been extremely weak. Patient has difficulty speaking feeding herself bathing toileting. No fever reported. Multiple medical problems are reported, including history of carcinoid tumor, bladder cancer with urostomy, hypertension hyperlipidemia hypothyroidism anxiety chronic pain DVTs hyperlipidemia depression among others. The patient has been unable take medications due to weakness. Pt follows with Dr Meza. Reportedly INR was 7 two days ago. The patient received vitamin K yesterday and today. Pt non- compliant with methenamine last 2-3 days. MD Complaint: generalized weakness Onset (ago): day(s) (1.5) Duration: constant Location: generalized Migration: none Severity: moderate Related Data Home Medications Medication Instructions Recorded Confirmed anastrozole 1 mg PO DAILY 10/09/17 10/09/17 atenolol 50 mg PO DAILY 10/09/17 10/09/17 benzonatate [Tessalon Perles] 100 mg PO TID PRN 10/09/17 10/09/17 budesonide-formoterol [Symbicort] 2 puff INHALATION DAILY 10/09/17 10/09/17 cholecalciferol (vitamin D3) 2,000 unit PO DAILY 10/09/17 10/09/17 [Vitamin D3] cyclosporine [Restasis] 1 drp EACH EYE BID 10/09/17 10/09/17 glipizide-metformin 1 tab PO BID 10/09/17 10/09/17 hydralazine 25 mg PO TID 10/09/17 10/09/17 insulin detemir U-100 [Levemir 10 unit SUB-Q HS 10/09/17 10/09/17 U-100 Insulin] levothyroxine 137 mcg PO DAILY 10/09/17 10/09/17 lisinopril 10 mg PO DAILY 10/09/17 10/09/17 methenamine mandelate 500 mg PO HS 10/09/17 10/09/17 mirtazapine 45 mg PO HS 10/09/17 10/09/17 montelukast [Singulair] 10 mg PO HS 10/09/17 10/09/17 morphine 15 mg PO Q6H PRN 10/09/17 10/09/17 morphine 15 mg PO Q8HR PRN 10/09/17 10/09/17 paroxetine HCl [Paxil] 30 mg PO DAILY 10/09/17 10/09/17 pravastatin 10 mg PO HS 10/09/17 10/09/17 prednisone 5 mg PO BID 10/09/17 10/09/17 warfarin [Coumadin] 3 mg PO DAILY 10/09/17 10/09/17 Allergies Allergy/AdvReac Type Severity Reaction Status Date / Time amlodipine Allergy Severe Verified 07/15/17 14:01 atorvastatin Allergy Severe Verified 07/15/17 14:01 codeine Allergy Severe nausea Verified 07/15/17 14:01 dimenhydrinate Allergy Severe Confusion Verified 07/15/17 14:01 simvastatin Allergy Severe Verified 07/15/17 14:01 zolpidem Allergy Severe Confusion Verified 07/15/17 14:01 cephalexin Allergy Intermediate Rash Verified 07/15/17 14:01 Review of Systems ROS: all other systems reviewed are negative Constitutional Denies fever(s) PMFSH Medical History Medical History Cancer (Acute) H/O blood clots (Acute) Social History Social History Substance History: No History of Abuse Second Hand Smoke Exposure: No Smoking Status: Never smoker Tobacco Type: Cigarettes How Often Do You Have a Drink Containing Alcohol: Never Recent Travel in [facility] within the Last 8 Weeks: No Recent Out of Country Travel within the Last 8 Weeks: No Immunization History Tetanus Immunization: Unsure Hx Influenza Vaccine This Season: Unable to Assess Exam Narrative Exam Narrative: GENERAL: 87-year-old female well-nourished well-developed asleep opens the eyes to gentle tactile stimulus SKIN: Focused skin assessment warm/dry. HEAD: Atraumatic. Normocephalic. EYES: Pupils equal and round. No scleral icterus. No injection or drainage. ENT: No nasal bleeding or discharge. Mucous membranes pink and moist. NECK: Trachea midline. No JVD. CARDIOVASCULAR: Regular rate and rhythm. No murmur appreciated. RESPIRATORY: No accessory muscle use. Clear to auscultation. Breath sounds equal bilaterally. GASTROINTESTINAL: There is an ostomy bag with cloudy urine present. Abdomen is soft. There is no grimace with palpation. MUSCULOSKELETAL: No obvious deformities. No clubbing. No cyanosis. No edema. NEUROLOGICAL: There is no focal deficit or facial asymmetry. The patient opens eyes to gentle tactile stimulus. PSYCHIATRIC: Unable to assess due to mental status. Course Reevaluation(s) Reevaluation #1: The patient has been resting comfortably. Daughter and son were updated with results and were generally amenable with plan for admission. They requested extended release morphine ER 15mg. Time: 12:43 Reevaluation #2: Case discussed with Dr. Bhatt for hospitalist service. Morphine ordered. Time: 13:45 Initial Documented Vital Signs Temperature 97.3 F L 10/09/17 10:06 Pulse Rate 63 10/09/17 10:06 Respiratory Rate 12 10/09/17 10:06 Blood Pressure 113/60 10/09/17 10:06 Pulse Oximetry 99 10/09/17 10:06 Last Documented Vital Signs Temperature 98.9 F 10/09/17 14:14 Pulse Rate 35 L 10/09/17 14:25 Respiratory Rate 15 10/09/17 14:25 Blood Pressure 117/66 10/09/17 14:25 Pulse Oximetry 99 10/09/17 14:14 Medical Decision Making MDM Narrative Medical decision making narrative: IV fluids started here. The urostomy bag had cloudy urine in it. It was accidentally discarded without obtaining a UA. A clean bag was placed. Urine will be drawn and sent. There is concern for UTI. There is a fairly significant prerenal state. Trending the BUN/ creatinine back to see that the patient typically does have a BUN/creatinine ratio of at least 30-1. She does not take diuretics. Call placed to [facility] at 1230PM. Case d/w Dr Bhatt. Dr Bhatt added heme oncology consult at 139pm. All family members questions answered. Medical Screen Exam Complete: Yes Emergency Medical Condition: Yes Lab Data Lab results reviewed: Yes I reviewed the patient's lab results. Lab results narrative: AST 205 ALT 243 Alk phos 621 Tn 0.02 Anion gap 10 History of the creatinine is 1.16 and BUN is 59. One month ago the creatinine was 0.4 and the BUN is 42. Result diagrams: 10/09/17 11:00 10/09/17 11:00 Lab Results 10/09/17 10/09/17 10/09/17 Range/Units 11:00 11:00 11:00 WBC 12.3 H (4.0-11.0) th/mm3 RBC 4.16 (4.00-5.30) mil/mm3 Hgb 12.0 (11.6-15.3) gm/dL Hct 38.2 (35.0-46.0) % MCV 91.8 (80.0-100.0) fL MCH 28.8 (27.0-34.0) pg MCHC 31.4 L (32.0-36.0) % RDW 17.5 H (11.6-17.2) % Plt Count 257 (150-450) th/mm3 MPV 8.7 (7.0-11.0) fL Neut % (Auto) 79.4 H (16.0-70.0) % Lymph % (Auto) 11.9 (9.0-44.0) % [place] % (Auto) 8.1 H (0.0-8.0) % Eos % (Auto) 0.2 (0.0-4.0) % Baso % (Auto) 0.4 (0.0-2.0) % Neut # (Auto) 9.7 H (1.8-7.7) th/mm3 Lymph # (Auto) 1.5 (1.0-4.8) th/mm3 [place] # (Auto) 1.0 H (0.0-0.9) th/mm3 Eos # (Auto) 0.0 (0.0-0.4) th/mm3 Baso # (Auto) 0.0 (0.0-0.2) th/mm3 WBC Differential . Differential Comment Auto diff final PT 11.9 H D (9.8-11.6) sec INR 1.2 Ratio Sodium 141 (136-145) meq/L Potassium 5.1 (3.5-5.1) meq/L Chloride 114 H (98-107) meq/L Carbon Dioxide 17.4 L (21.0-32.0) meq/L Anion Gap 10 (5-15) meq/L BUN 67 H (7-18) mg/dL Creatinine 1.44 H (0.50-1.00) mg/dL Estimated GFR 35 L (>89) mL/min POC Glucose (68-110) mg/dl Random Glucose 156 H (74-106) mg/dL Calcium 8.5 (8.5-10.1) mg/dL Magnesium 2.3 (1.5-2.5) mg/dL Total Bilirubin 2.6 H (0.2-1.0) mg/dL AST 205 H (15-37) U/L ALT 243 H (10-53) U/L Alkaline Phosphatase 621 H (45-117) U/L Ammonia (11-32) mcmol/L Total Creatine Kinase 100 (26-192) U/L Troponin I 0.02 (0.02-0.05) ng/mL Total Protein 6.2 L (6.4-8.2) g/dL Albumin 2.6 L (3.4-5.0) g/dL Urine Color (Yellw/Straw) Urine Clarity (Clear) Urine pH (5.0-8.5) Ur Specific [place] (1.002-1.035) Urine Protein (Neg-Trace) mg/dL Urine Glucose (UA) (Negative) mg/dL Urine Ketones (Negative) mg/dL Urine Occult Blood (Negative) Urine Nitrate (Negative) Urine Bilirubin (Negative) Urine Urobilinogen (Less than 2) mg/dL Ur Leukocyte Esterase (Negative) Urine RBC (0-3) /hpf Urine WBC (0-5) /hpf Ur Squamous Epith Cells (0-5) /hpf Ur Transition Epith Cell (None) /hpf Urine Bacteria (None) /hpf Hyaline Casts (0-3) /lpf Micro UA Comment Urine Culture Comments 10/09/17 10/09/17 10/09/17 Range/Units 14:05 14:25 14:30 WBC (4.0-11.0) th/mm3 RBC (4.00-5.30) mil/mm3 Hgb (11.6-15.3) gm/dL Hct (35.0-46.0) % MCV (80.0-100.0) fL MCH (27.0-34.0) pg MCHC (32.0-36.0) % RDW (11.6-17.2) % Plt Count (150-450) th/mm3 MPV (7.0-11.0) fL Neut % (Auto) (16.0-70.0) % Lymph % (Auto) (9.0-44.0) % [place] % (Auto) (0.0-8.0) % Eos % (Auto) (0.0-4.0) % Baso % (Auto) (0.0-2.0) % Neut # (Auto) (1.8-7.7) th/mm3 Lymph # (Auto) (1.0-4.8) th/mm3 [place] # (Auto) (0.0-0.9) th/mm3 Eos # (Auto) (0.0-0.4) th/mm3 Baso # (Auto) (0.0-0.2) th/mm3 WBC Differential Differential Comment PT (9.8-11.6) sec INR Ratio Sodium (136-145) meq/L Potassium (3.5-5.1) meq/L Chloride (98-107) meq/L Carbon Dioxide (21.0-32.0) meq/L Anion Gap (5-15) meq/L BUN (7-18) mg/dL Creatinine (0.50-1.00) mg/dL Estimated GFR (>89) mL/min POC Glucose 122 H (68-110) mg/dl Random Glucose (74-106) mg/dL Calcium (8.5-10.1) mg/dL Magnesium (1.5-2.5) mg/dL Total Bilirubin (0.2-1.0) mg/dL AST (15-37) U/L ALT (10-53) U/L Alkaline Phosphatase (45-117) U/L Ammonia 65 H (11-32) mcmol/L Total Creatine Kinase (26-192) U/L Troponin I (0.02-0.05) ng/mL Total Protein (6.4-8.2) g/dL Albumin (3.4-5.0) g/dL Urine Color [place] (Yellw/Straw) Urine Clarity Cloudy H (Clear) Urine pH 6.0 (5.0-8.5) Ur Specific [place] 1.012 (1.002-1.035) Urine Protein 30 H (Neg-Trace) mg/dL Urine Glucose (UA) Negative (Negative) mg/dL Urine Ketones Negative (Negative) mg/dL Urine Occult Blood Small H (Negative) Urine Nitrate Negative (Negative) Urine Bilirubin Negative (Negative) Urine Urobilinogen Less than 2 (Less than 2) mg/dL Ur Leukocyte Esterase Small H (Negative) Urine RBC 3 (0-3) /hpf Urine WBC 64 H (0-5) /hpf Ur Squamous Epith Cells <1 (0-5) /hpf Ur Transition Epith Cell <1 (None) /hpf Urine Bacteria Many H (None) /hpf Hyaline Casts 1 (0-3) /lpf Micro UA Comment Culture indicated Urine Culture Comments Culture indicated Imaging Data Radiologist's impression: Liver Ultrasound 10/09/17 00:00 CONCLUSION: 1. No definite acute liver findings. 2. Apparent interval development of left sided hydronephrosis. Chest X-Ray 10/09/17 10:57 CONCLUSION: 1. Linear parenchymal opacity in the right lung base, likely atelectasis/ scarring. 2. New 1 cm sharply demarcated sclerotic lesion in the right proximal humerus concerning for metastatic disease in this patient with history of rectal and breast CA. Head CT 10/09/17 10:58 CONCLUSION: 1. No acute intracranial abnormality is identified. 2. Stable extra-axial partially calcified mass in the left frontal high convexity measuring 12 mm. Imaging features are characteristic of a meningioma. The lesion has been present and not significantly changed since November 2016. 3. Stable chronic findings include mild generalized atrophy and chronic periventricular white matter change. . Discharge Plan Discharge Disposition Patient Disposition: 30 Still Patient Physicians Team ED Provider: Jose Real Primary Care Provider: Arnie Trevizo Attending Provider: Vipul Caputo Other Providers: Donna Meza Status ED Status: Admitted Patient
--- NOTE | 2017-10-09 13:33 | CT ---
EXAM DATE: 10/09/2017 1:13 PM EDT AGE/SEX: 87 years / Female INDICATIONS: Altered mental status. CLINICAL DATA: This is the patient's initial encounter. Patient reports that signs and symptoms have been present for 1 day and indicates a pain score of 0/10. MEDICAL/SURGICAL HISTORY: Hypertension. Carcinoma, bladder. . Urostomy RADIATION DOSE: 48.64 CTDI (mGy) [place] [facility] [place] [facility] [place]26/[place]. . TECHNIQUE: CT of the head without contrast. Using automated exposure control and adjustment of the mA and/or kV according to patient size, radiation dose was kept as low as reasonably achievable to ob tain optimal diagnostic quality images. DICOM format image data is available electronically for revi ew and comparison. FINDINGS: Cerebrum: There is mild generalized atrophy and ventricles are normal given the degree of atrophy. M ild periventricular white matter change is present. No midline shift, hemorrhage or acute infarction . No extraaxial fluid collections are seen. There is a stable partially calcified hyperdense lesion in the left frontal high convexity in a parafalcine location. It measures 1.2 x 1.0 cm. No significan t local mass effect is present and there is no edema in the adjacent brain parenchyma. Posterior Fossa: The cerebellum and brainstem demonstrate no acute abnormality. The 4th ventricle is midline. The cerebellopontine angle is within normal limits. Extracranial: The visualized sinuses are clear. Skull: The calvaria is intact. No skull fracture. CONCLUSION: 1. No acute intracranial abnormality is identified. 2. Stable extra-axial partially calcified mass in the left frontal high convexity measuring 12 mm. I maging features are characteristic of a meningioma. The lesion has been present and not significantly changed since November 2016. 3. Stable chronic findings include mild generalized atrophy and chronic periventricular white matter change. . Electronically signed by: Ho Ambrose MD 10/09/2017 1:32 PM EDT
[2017-10-09] MEDS ORDERED: Dextrose 50% in Water 50 ML Vial IV.PUSH PRN (13:34)
--- NOTE | 2017-10-09 14:31 | US ---
EXAM DATE: 10/09/2017 2:23 PM EDT AGE/SEX: 87 years / Female INDICATIONS: Abnormal labs. CLINICAL DATA: This is the patient's initial encounter. Patient reports that signs and symptoms have been present for 1 day and indicates a pain score of 5/10. MEDICAL/SURGICAL HISTORY: Carcinoma, bladder. Hypothyroidism. Carcinoid tumor. Blood clots. HT N. Hyperlipidemia. . Urostomy. COMPARISON: [facility], CT ABDOMEN AND PELVIS W AND W/O CONTRAST, 10/06/2017. . MEASUREMENTS: Liver:__ 14.0 cm. Common Bile Duct:__ 7mm. Right Kidney:__ 7.7 x 4.0 x 4.3 cm. FINDINGS: Liver: Increased echotexture without focal lesion or ductal dilation. Portal Vein: Hepatopedal flow seen in portal vein. Common Duct: No intraluminal mass or stone visualized. Gallbladder: Demonstrates no wall thickening or pericholecystic fluid. No stones visualized. Pancreas: Not well visualized. Right Kidney: Increased echotexture. No mass or hydronephrosis. Other: Apparent left hydronephrosis. CONCLUSION: 1. No definite acute liver findings. 2. Apparent interval development of left sided hydronephrosis. Electronically signed by: Ho Lal MD 10/09/2017 2:29 PM EDT
[2017-10-09 14:38] LABS: Bacteria,Urine Many /hpf; Bilirubin,Urine Negative (Negative); Clarity,Urine Cloudy (Clear); Color,Urine Amber (Yellw/Straw); Glucose,Urine (UA) Negative (Negative); Hyaline Casts,Urine 1 /lpf (0-3); Leukocyte Esterase,Urine Small (Negative); Nitrite,Urine Negative (Negative); Specific Gravity,Urine 1.012 (1.002-1.035); Squamous Epithelial Cell,Urine <1 /hpf (0-5); Transitional Epi Cells,Urine <1 /hpf
[2017-10-09] MEDS: Budesonide-Formoterol 160/4.5 MCG 6 GM Inhaler INH SCH ×2 (14:50→16:04)
[2017-10-09] MEDS ORDERED: Hydrocortisone Sod Succinate 100 MG Vial IV.PUSH ONE (15:00)
[2017-10-09] MEDS ORDERED: Bisacodyl 10 MG Supp RECTAL PRN (15:00)
[2017-10-09] MEDS: Heparin - SQ 10,000 UNITS/ML Vial SQ SCH ×2 (15:50→22:04)
[2017-10-09] MEDS: predniSONE 5 MG Tablet PO SCH (15:51)
[2017-10-09] MEDS: Levothyroxine 112 MCG Tablet PO SCH (15:52)
[2017-10-09] MEDS: Sod Chloride 0.9% Inj 1,000 ML IV.CONT SCH (15:54)
[2017-10-09] MEDS: Insulin NovoLOG Aspart Correctional Sugar Inj SQ SCH ×2 (17:04→21:50)
[2017-10-09] MEDS: hydrALAZINE 25 MG Tablet PO SCH (18:23)
--- NOTE | 2017-10-09 18:38 | P.HP ---
History of Present Illness Primary Care Physician: Arnie Trevizo MD Chief Complaint: AMS/disorientation History of Present Illness: 87-year-old female for past medical history of carcinoid tumor, previous bladder cancer, breast cancer, colon cancer, lower extremity DVT, A. fib, diabetes was brought to the ED by family members for evaluation of an acute onset of altered mental status change along with 5 day history of worsening watery, loose stools as well as decrease urine output noted in the urostomy bag without any febrile episode. Patient is being currently followed by Dr. Meza , her oncologist. Family member at bedside providing most of the history - Diagnosis (1) Toxic metabolic encephalopathy (2) Carcinoid tumor (3) ARF (acute renal failure) (4) Hyperammonemia (5) Diabetes Inpatient Certification: I certify that the inpatient services were ordered in accordance with Medicare regulations governing the order. This includes certification that hospital inpatient services are reasonable and necessary and in the case of services not specified as inpatient-only under 42 CFR 419.22(n), that they are appropriately provided as inpatient services in accordance to with the 2-midnight benchmark under 43 CFR 412.3(e) Estimated Total Length of Stay (Days): 3 Plans for Post Hospital Care: Not yet determined Review of Systems All other systems reviewed negative except as stated in HPI PMFSH - History History Provided By: Family Member - Medical History Medical History: Medical History (Last Updated 10/09/17 @ 10:37 by Myrna Bob) Cancer H/O blood clots - Family History Family History: Family History (Last Updated 10/09/17 @ 18:20 by Vipul Caputo MD) Other Family history of cancer - Tobacco History Second Hand Smoke Exposure: No Tobacco Use In Past 30 Days: No Smoking Status: Never smoker Tobacco Type: Cigarettes - Alcohol History How Often Do You Have a Drink Containing Alcohol: Never - Substance Use History Substance History: No History of Abuse - Travel History Recent Travel in the [place] Within the Last 8 Weeks: No Recent Travel Out of the Country Within the Last 8 Weeks: No - Immunization History Tetanus Immunization: Unsure Hx Influenza Vaccine This Season: Unable to Assess Medications and Allergies Active Medications: Active Medications Al Hydroxide/Mg Hydroxide (Milk Of Magnave Liq) 30 ml PO Q12H PRN PRN Reason: Mild Constipation Anastrozole (Arimidex) 1 mg PO DAILY ARI Atenolol (Tenormin) 50 mg PO DAILY [facility] Bisacodyl (Dulcolax Supp) 10 mg RECTAL DAILY PRN PRN Reason: SEVERE CONSITIPATION Budesonide/Formoterol Fumarate (Symbicort 160/4.5 Mcg Inh) 2 puff INH DAILY [facility] Last Admin: 10/09/17 16:04 Dose: Not Given Dextrose (D50w Vial) 50 ml IV.PUSH UNSCH PRN PRN Reason: PER HYPOGLYCEMIA PROTOCOL Glucagon (Glucagon Inj) 1 mg OTHER PRN PRN PRN Reason: for Hypoglycemia Protocol Heparin Sodium (Porcine) (Heparin Inj) 5,000 units SQ Q8H [facility] Last Admin: 10/09/17 15:50 Dose: 5,000 units Hydralazine HCl (Apresoline) 25 mg PO TID [facility] Sodium Chloride (Ns Inj) 1,000 mls @ 70 mls/hr IV.CONT .[id number] [facility] Last Admin: 10/09/17 15:54 Dose: 70 mls/hr Insulin Aspart (Novolog Insulin Correctional Sugar Inj) 0 unit SQ ACHS [facility]; Protocol Last Admin: 10/09/17 17:04 Dose: Not Given Lactulose (Lactulose Liq) 30 ml PO DAILY PRN PRN Reason: SEVERE CONSITIPATION Levothyroxine Sodium (Synthroid) 112 mcg PO DAILY@0600 [facility] Last Admin: 10/09/17 15:52 Dose: 112 mcg Levothyroxine Sodium (Synthroid) 25 mcg PO DAILY@0600 [facility] Last Admin: 10/09/17 15:53 Dose: 25 mcg Methenamine Mandelate (Mandelamine) 500 mg PO HS [facility] Miscellaneous (Pill Splitter) 1 each OTHER UNSCH [facility] Montelukast Sodium (Singulair) 10 mg PO HS [facility] Octreotide Acetate (Sandostatin Inj) 50 mcg SQ Q12HR [facility] Paroxetine HCl (Paxil) 30 mg PO DAILY [facility] Cyclosporine( Restasis) 1 Drop To Each Eye Bid 0 each EACH EYE BID [facility] Prednisone (Deltasone) 5 mg PO BID [facility] Last Admin: 10/09/17 15:51 Dose: 5 mg Sennosides (Senokot) 17.2 mg PO Q12H PRN PRN Reason: Moderate Constipation Sodium Chloride (Ns Flush) 2 ml IV.FLUSH PRN PRN PRN Reason: FLUSH AFTER USING IV ACCESS Vitamin D (Vitamin D3) 2,000 unit PO DAILY ARI Allergies Allergy/AdvReac Type Severity Reaction Status Date / Time amlodipine Allergy Severe Verified 07/15/17 14:01 atorvastatin Allergy Severe Verified 07/15/17 14:01 codeine Allergy Severe nausea Verified 07/15/17 14:01 dimenhydrinate Allergy Severe Confusion Verified 07/15/17 14:01 simvastatin Allergy Severe Verified 07/15/17 14:01 zolpidem Allergy Severe Confusion Verified 07/15/17 14:01 cephalexin Allergy Intermediate Rash Verified 07/15/17 14:01 Home Medications Medication Instructions Recorded Confirmed Type anastrozole 1 mg PO DAILY 10/09/17 10/09/17 History atenolol 50 mg PO DAILY 10/09/17 10/09/17 History benzonatate [Tessalon Perles] 100 mg PO TID PRN 10/09/17 10/09/17 History budesonide-formoterol [Symbicort] 2 puff INHALATION DAILY 10/09/17 10/09/17 History cholecalciferol (vitamin D3) 2,000 unit PO DAILY 10/09/17 10/09/17 History [Vitamin D3] cyclosporine [Restasis] 1 drp EACH EYE BID 10/09/17 10/09/17 History glipizide-metformin 1 tab PO BID 10/09/17 10/09/17 History hydralazine 25 mg PO TID 10/09/17 10/09/17 History insulin detemir U-100 [Levemir 10 unit SUB-Q HS 10/09/17 10/09/17 History U-100 Insulin] levothyroxine 137 mcg PO DAILY 10/09/17 10/09/17 History lisinopril 10 mg PO DAILY 10/09/17 10/09/17 History methenamine mandelate 500 mg PO HS 10/09/17 10/09/17 History mirtazapine 45 mg PO HS 10/09/17 10/09/17 History montelukast [Singulair] 10 mg PO HS 10/09/17 10/09/17 History morphine 15 mg PO Q6H PRN 10/09/17 10/09/17 History morphine 15 mg PO Q8HR PRN 10/09/17 10/09/17 History paroxetine HCl [Paxil] 30 mg PO DAILY 10/09/17 10/09/17 History pravastatin 10 mg PO HS 10/09/17 10/09/17 History prednisone 5 mg PO BID 10/09/17 10/09/17 History warfarin [Coumadin] 3 mg PO DAILY 10/09/17 10/09/17 History Exam Vital signs: Vital Signs 10/09/17 10:06 10/09/17 10:37 10/09/17 14:14 Temperature 97.3 F L 98.8 F 98.9 F Pulse Rate 63 89 89 Respiratory Rate 12 18 18 Blood Pressure 113/60 113/63 157/83 H Pulse Oximetry 99 98 99 10/09/17 14:25 10/09/17 16:00 Temperature 97.7 F Pulse Rate 35 L 88 Respiratory Rate 15 18 Blood Pressure 117/66 152/71 H Pulse Oximetry 100 Intake & Output 10/08/17 10/09/17 10/09/17 18:59 06:59 18:59 Weight 68.039 kg Narrative: GENERAL: NAD SKIN: Warm and dry. HEAD: Atraumatic. Normocephalic. EYES: Pupils equal and round. No scleral icterus. No injection or drainage. ENT: No nasal bleeding or discharge. Mucous membranes pink and moist. NECK: Trachea midline. No JVD. CARDIOVASCULAR: Irreg Regular rate and rhythm. 3/6 SAL RESPIRATORY: No accessory muscle use. Clear to auscultation. Breath sounds equal bilaterally. GASTROINTESTINAL: Abdomen soft, non-tender, nondistended. Hepatic and splenic margins not palpable. MUSCULOSKELETAL: Extremities without clubbing, cyanosis, or edema. No obvious deformities. NEUROLOGICAL: Awake and alert. No obvious cranial nerve deficits. Motor grossly within normal limits. Five out of 5 muscle strength in the arms and legs. . Results - Labs CBC & Chem 7: 10/09/17 11:00 10/09/17 11:00 Labs: Laboratory Results - last 24 hr 10/09/17 10/09/17 10/09/17 11:00 11:00 11:00 WBC 12.3 H RBC 4.16 Hgb 12.0 Hct 38.2 MCV 91.8 MCH 28.8 MCHC 31.4 L RDW 17.5 H Plt Count 257 MPV 8.7 Neut % (Auto) 79.4 H Lymph % (Auto) 11.9 [place] % (Auto) 8.1 H Eos % (Auto) 0.2 Baso % (Auto) 0.4 Neut # (Auto) 9.7 H Lymph # (Auto) 1.5 [place] # (Auto) 1.0 H Eos # (Auto) 0.0 Baso # (Auto) 0.0 WBC Differential . Differential Comment Auto diff final PT 11.9 H D INR 1.2 Sodium 141 Potassium 5.1 Chloride 114 H Carbon Dioxide 17.4 L Anion Gap 10 BUN 67 H Creatinine 1.44 H Estimated GFR 35 L POC Glucose Random Glucose 156 H Calcium 8.5 Magnesium 2.3 Total Bilirubin 2.6 H AST 205 H ALT 243 H Alkaline Phosphatase 621 H Ammonia Total Creatine Kinase 100 Troponin I 0.02 Total Protein 6.2 L Albumin 2.6 L TSH Cortisol Urine Color Urine Clarity Urine pH Ur Specific [place] Urine Protein Urine Glucose (UA) Urine Ketones Urine Occult Blood Urine Nitrate Urine Bilirubin Urine Urobilinogen Ur Leukocyte Esterase Urine RBC Urine WBC Ur Squamous Epith Cells Ur Transition Epith Cell Urine Bacteria Hyaline Casts Micro UA Comment Urine Culture Comments 10/09/17 10/09/17 10/09/17 14:05 14:25 14:25 WBC RBC Hgb Hct MCV MCH MCHC RDW Plt Count MPV Neut % (Auto) Lymph % (Auto) [place] % (Auto) Eos % (Auto) Baso % (Auto) Neut # (Auto) Lymph # (Auto) [place] # (Auto) Eos # (Auto) Baso # (Auto) WBC Differential Differential Comment PT INR Sodium Potassium Chloride Carbon Dioxide Anion Gap BUN Creatinine Estimated GFR POC Glucose Random Glucose Calcium Magnesium Total Bilirubin AST ALT Alkaline Phosphatase Ammonia Total Creatine Kinase Troponin I Total Protein Albumin TSH 0.461 Cortisol 15.5 Urine Color [place] Urine Clarity Cloudy H Urine pH 6.0 Ur Specific [place] 1.012 Urine Protein 30 H Urine Glucose (UA) Negative Urine Ketones Negative Urine Occult Blood Small H Urine Nitrate Negative Urine Bilirubin Negative Urine Urobilinogen Less than 2 Ur Leukocyte Esterase Small H Urine RBC 3 Urine WBC 64 H Ur Squamous Epith Cells <1 Ur Transition Epith Cell <1 Urine Bacteria Many H Hyaline Casts 1 Micro UA Comment Culture indicated Urine Culture Comments Culture indicated 10/09/17 10/09/17 14:25 14:30 WBC RBC Hgb Hct MCV MCH MCHC RDW Plt Count MPV Neut % (Auto) Lymph % (Auto) [place] % (Auto) Eos % (Auto) Baso % (Auto) Neut # (Auto) Lymph # (Auto) [place] # (Auto) Eos # (Auto) Baso # (Auto) WBC Differential Differential Comment PT INR Sodium Potassium Chloride Carbon Dioxide Anion Gap BUN Creatinine Estimated GFR POC Glucose 122 H Random Glucose Calcium Magnesium Total Bilirubin AST ALT Alkaline Phosphatase Ammonia 65 H Total Creatine Kinase Troponin I Total Protein Albumin TSH Cortisol Urine Color Urine Clarity Urine pH Ur Specific [place] Urine Protein Urine Glucose (UA) Urine Ketones Urine Occult Blood Urine Nitrate Urine Bilirubin Urine Urobilinogen Ur Leukocyte Esterase Urine RBC Urine WBC Ur Squamous Epith Cells Ur Transition Epith Cell Urine Bacteria Hyaline Casts Micro UA Comment Urine Culture Comments - Imaging Impressions Liver Ultrasound 10/09/17 00:00 CONCLUSION: 1. No definite acute liver findings. 2. Apparent interval development of left sided hydronephrosis. Chest X-Ray 10/09/17 10:57 CONCLUSION: 1. Linear parenchymal opacity in the right lung base, likely atelectasis/ scarring. 2. New 1 cm sharply demarcated sclerotic lesion in the right proximal humerus concerning for metastatic disease in this patient with history of rectal and breast CA. Head CT 10/09/17 10:58 CONCLUSION: 1. No acute intracranial abnormality is identified. 2. Stable extra-axial partially calcified mass in the left frontal high convexity measuring 12 mm. Imaging features are characteristic of a meningioma. The lesion has been present and not significantly changed since November 2016. 3. Stable chronic findings include mild generalized atrophy and chronic periventricular white matter change. . Caprini VTE Risk Assessment Caprini VTE Risk Assessment: Moderate/High Risk (score >= 2) Caprini Risk Assessment Model: Point Value = 1 Point Value = 2 Point Value = 3 Point Value = 5 Age 41-60 Minor surgery BMI > 25 kg/m2 Swollen legs Varicose veins or History of unexplained or recurrent spontaneous Oral contraceptives or hormone replacement Sepsis (< 1 month) Serious lung disease, including pneumonia (< 1 month) Abnormal pulmonary function Acute myocardial infarction Congestive heart failure (< 1 month) History of inflammatory bowel disease Medical patient at bed rest Age 61-74 Arthroscopic surgery Major open surgery (> 45 min) Laparoscopic surgery (> 45 min) Malignancy Confined to bed (> 72 hours) Immobilizing plaster cast Central venous access Age >= 75 History of VTE Family history of VTE Factor V Leiden Prothrombin [id number] Lupus anticoagulant Anticardiolipin antibodies Elevated serum homocysteine Heparin-induced thrombocytopenia Other congenital or acquired thrombophilia Stroke (< 1 month) Elective arthroplasty Hip, pelvis, or leg fracture Acute spinal cord injury (< 1 month) Prophylaxis Regimen: Total Risk Factor Score Risk Level Prophylaxis Regimen 0-1 Low Early ambulation 2 Moderate Order ONE of the following: *Sequential Compression Device (SCD) *Heparin 5000 units SQ BID 3-4 Higher Order ONE of the following medications: *Heparin 5000 units SQ TID *Enoxaparin/Lovenox 40 mg SQ daily (WT < 150 kg, CrCl > 30 mL/min) *Enoxaparin/Lovenox 30 mg SQ daily (WT < 150 kg, CrCl > 10-29 mL/min) *Enoxaparin/Lovenox 30 mg SQ BID (WT < 150 kg, CrCl > 30 mL/min) AND/OR *Sequential Compression Device (SCD) 5 or more Highest Order ONE of the following medications: *Heparin 5000 units SQ TID (Preferred with Epidurals) *Enoxaparin/Lovenox 40 mg SQ daily (WT < 150 kg, CrCl > 30 mL/min) *Enoxaparin/Lovenox 30 mg SQ daily (WT < 150 kg, CrCl > 10-29 mL/min) *Enoxaparin/Lovenox 30 mg SQ BID (WT < 150 kg, CrCl > 30 mL/min) AND *Sequential Compression Device (SCD) Assessment and Plan - Assessment (1) Toxic metabolic encephalopathy Code(s): G92 - Toxic encephalopathy Status: Acute (2) Carcinoid tumor Code(s): D3A.00 - Benign carcinoid tumor of unspecified site Status: Acute (3) ARF (acute renal failure) Code(s): N17.9 - Acute kidney failure, unspecified Status: Acute (4) Hyperammonemia Code(s): E72.20 - Disorder of urea cycle metabolism, unspecified Status: Acute (5) Diabetes Code(s): E11.9 - Type 2 diabetes mellitus without complications Status: Acute - Plan 87-year-old female with Toxic and metabolic encephalopathy Multifactorial Ammonia level [address] noted and reviewed by me without any intracranial abnormalities Hyperammonemia Ammonia level 65 Liver ultrasound noted and reviewed by me with no definite acute liver findings Treatment with lactulose Transaminitis Ultrasound noted Hold Statin Monitor LFTs Diarrhea Rule out C. difficile with C diff PCR, check stool for ova and parasite However this may be due to carcinoid tumor History of carcinoid tumor Consult oncology Currently on octreotide drip History of UTI Check UA and treat accordingly Resume outpatient med for UTI prophylaxis Acute renal injury Prerenal, secondary to dehydration Continue with gentle IV fluid hydration and monitor BUN and creatinine Metabolic acidosis Treatment with NS with sodium bicarb Leukocytosis Stress reactive versus steroid use Monitor WBC Diabetes type 2 Hold oral hypoglycemic agent along with basal insulin until patient's appetite increased along with improvement of renal function Start insulin sliding scale with fingerstick blood glucose monitoring Hypertension Resume oral antihypertensive medications History of atrial fibrillation Currently in normal sinus rhythm Resume Coumadin and continue atenolol History of DVT Resume Coumadin History of breast cancer Resume Arimidex Consul oncology (5) Diabetes Qualifiers: Diabetes mellitus type: type 2 Diabetes mellitus penitentiary insulin use: with penitentiary use Diabetes mellitus complication status: without complication Qualified Code(s): E11.9 - Type 2 diabetes mellitus without complications; Z79.4 - MCC (current) use of insulin
--- NOTE | 2017-10-09 18:53 | MB ---
cc: Donna Meza MD,Lincoln Ladd MD DATE: 10/09/2017 REFERRING PHYSICIAN: Dr. Bhatt. CHIEF COMPLAINT: Dr. Bhatt requests a consultation for Ms. Hill regarding history of metastatic carcinoid and ER positive, HER2/charisma overexpressing breast cancer. HISTORY OF PRESENT ILLNESS: Mrs. Hill is an 87-year-old woman unknown patient with a long history of metastatic carcinoid which is followed. She is not on octreotide. She had declined therapy from previous consultation and discussion. Her course is complicated by a diagnosis of ER positive, HER2/charisma overexpressing breast cancer. She has had definitive surgery and is on adjuvant hormonal therapy. Her course is further complicated by atrial fibrillation, TIA and recent stroke. She is maintained on anticoagulant therapy with Coumadin. She has home PT/INR testing and home care followup. Over the last weekend she developed diarrheal symptoms as reported by her daughter. She had a CT scan of the abdomen on an outpatient basis. No abnormality was identified, except for her known retroperitoneal mass measuring 3.5 cm. This is unchanged for over 10 years. She has had increasing chromogranin A suggestive of worsening carcinoid syndrome. She had persistent diarrheal symptoms that were concerning for manifestation of her carcinoid. She was seen in medical oncology clinic for an unscheduled visit yesterday. She was dehydrated and mildly hypotensive. Her PT/INR was significantly elevated. She was given vitamin K orally. She was scheduled for a followup PT/INR by her home care provider. Instead she was brought into the emergency room by her daughter. Her daughter describes that Mrs. Hill did not improve overnight. She had persistent weakness. She was not eating. She still had diarrheal symptoms. She was quite weak when she came in today to the emergency room. Laboratory evaluation shows a white blood cell count 12.3. Hemoglobin, hematocrit, platelet count are normal. PT/INR is 1.2. Chemistry is significant for a BUN of 67, creatinine 1.44, glucose is high at 156. Liver functions are elevated. On evaluation, she was confused. She could not tell her date of . She did not know where she was. She thought that she was having surgery and wanted to decline it. She was anxious and confused. She denies any overt pain. She has no nausea. She has had no diarrhea since being in the emergency room. However, she has also had nothing orally. Her daughter denies any fevers. Her blood pressure appears to be better controlled than her systolic in the 80s from yesterday in clinic. Hematology oncology is consulted for history of carcinoid and breast cancer. PAST MEDICAL HISTORY: Anxiety, hypercholesterolemia, COPD, coronary artery disease, atrial fibrillation, recent TIA/CVA, hypothyroidism, hypertension, stoma site bleeding. PAST SURGICAL HISTORY: Appendectomy, bovine valve, bowel resection, left breast IORT, lymph node removal, tonsillectomy, EGD, single vessel CABG, AVR, cholecystectomy, cystectomy with ileal conduit. ALLERGIES: AMBIEN, CODEINE, DRAMAMINE, KEFLEX. FAMILY HISTORY: Sister is . No significant family history of cancer. SOCIAL HISTORY: She is , retired. She lives with her daughter. She is a never smoker. She denies any alcohol or illicit drug use. PHYSICAL EXAMINATION: VITAL SIGNS: Temperature 97.7, heart rate 88, respiratory rate 18, blood pressure 152/71, saturation 100%. GENERAL: Mrs. Hill is a well-developed, well-nourished, elderly woman who is confused. HEENT: Her pupils are round, reactive. Oropharynx is dry. NECK: Supple. LUNGS: Clear anteriorly. CARDIOVASCULAR: Reveals rate controlled rhythm. ABDOMEN: Benign. EXTREMITIES: Lower extremities with no edema. Good pulses. NEUROLOGIC: She has generalized weakness. She is able to move all 4 extremities with prompting. She has confusion described above. MEDICATIONS: Include: 1. Arimidex. 2. Tenormin. 3. Dulcolax. 4. Symbicort. 5. Heparin. 6. Synthroid. 7. Methenamine 8. Singulair. 9. Paxil. 10. Deltasone. 11. Senokot. 12. Vitamin D3. LABORATORY DATA: Significant for elevated BUN 67, creatinine 1.44, glucose 152. Liver function elevation worse than baseline. ASSESSMENT AND PLAN: Mrs. Hill is an 87-year-old woman with multiple medical problems described above. She was stable recently and developed diarrheal symptoms over the last several days. This resulted in dehydration, which was corrected in clinic yesterday. She unfortunately continues with diarrheal symptoms. I discussed with Mrs. Hill and her daughter present at the consultation my concern that the diarrhea may be related to the carcinoid. She has had increasing chromogranin A. Radiographically, there is no progression of disease where her site of tumor was. We discussed in the clinic the option of starting octreotide/lanreotide. She had been reluctant to do so in the past. We had deferred treatment yesterday in light of her INR was 7.5. Lanreotide is an IM injection. We discussed that her supratherapeutic INR is controlled. Her anticoagulant therapy will be bridged to a therapeutic dose. She has been given vitamin K unfortunately. We will monitor closely for any bleeding. She has evidence of dehydration from history. She has had persistent diarrheal symptoms. Octreotide will be offered. Hydration is offered. She has some confusion and possible delirium in light of the acute illness and dehydration. Her confusion continues. She is known to Dr. Wilder. She was pending a neurology appointment this week, which was canceled because of the diarrheal symptoms. Her liver function will be followed. Her baseline LFTs are high. However, these are significantly elevated compare to her baseline. She is noted to have an increase in her bilirubin, which was not previously noted. Ultrasound of the liver will be performed. CT scan of the abdomen as an outpatient several days ago did not show any obstruction in the liver, or any liver pathology. Questions were answered to her satisfaction. Donna Meza MD DEONTE/ct , 05:56 PM , 06:12 PM
[2017-10-09] MEDS ORDERED: Morphine Sulfate 15 MG SR Tablet PO ONE (21:00)
[2017-10-09] MEDS: Octreotide Inj 50 MCG/ML Vial SQ SCH (21:50)
[2017-10-09] MEDS: Methenamine Mandelate 500 MG Tablet PO SCH (21:52)
[2017-10-09] MEDS: CYCLOSPORINE EACH EYE SCH (21:52)
[2017-10-10] MEDS: predniSONE 5 MG Tablet PO SCH ×3 (04:40→23:30)
[2017-10-10] MEDS: Montelukast 10 MG Tablet PO SCH ×2 (04:40→23:14)
[2017-10-10] MEDS: Levothyroxine 112 MCG Tablet PO SCH (06:04)
[2017-10-10] MEDS: Heparin - SQ 10,000 UNITS/ML Vial SQ SCH ×3 (06:04→23:13)
[2017-10-10 06:05] LABS: Baso % (Auto) 0.2 % (0.0-2.0); Hematocrit 34.6 % (35.0-46.0); Lymph # (Auto) 1.1 th/mm3 (1.0-4.8); Lymph % (Auto) 10.5 % (9.0-44.0); Mean Corpuscular HGB Conc 31.7 % (32.0-36.0); Mean Corpuscular Hemoglobin 29.2 pg (27.0-34.0); Mean Platelet Volume 8.7 fL (7.0-11.0); Mono # (Auto) 0.6 th/mm3 (0.0-0.9); Mono % (Auto) 5.2 % (0.0-8.0); Neut # (Auto) 9.2 th/mm3 (1.8-7.7); Neut % (Auto) 84.1 % (16.0-70.0); Platelet Count 193 th/mm3 (150-450); Red Blood Count 3.76 mil/mm3 (4.00-5.30); White Blood Count 10.9 th/mm3 (4.0-11.0)
[2017-10-10 06:11] LABS: INR 1.1 Ratio; Prothrombin Time 11.2 sec (9.8-11.6)
[2017-10-10 06:27] LABS: Calcium 8.2 mg/dL (8.5-10.1); Carbon Dioxide 15.4 meq/L (21.0-32.0); Magnesium 2.1 mg/dL (1.5-2.5); Potassium 5.4 meq/L (3.5-5.1)
[2017-10-10] MEDS ORDERED: Morphine Sulfate 15 MG SR Tablet PO PRN (07:56)
[2017-10-10 08:39] LABS: Acanthocytes 1+; Lymphocytes 11 % (9-44); Monocytes 9 % (0-8); Myelocytes 3 % (0-0); Platelet Estimate Normal (Normal); Platelet Morphology Normal (Normal); Tallied Nucleated RBC 1 (0-0)
[2017-10-10 08:40] LABS: Burr Cells 1+
[2017-10-10] MEDS: Anastrozole 1 MG Tablet PO SCH (09:19)
[2017-10-10] MEDS: hydrALAZINE 25 MG Tablet PO SCH ×3 (09:19→17:16)
[2017-10-10] MEDS: Atenolol 50 MG Tablet PO SCH (09:19)
[2017-10-10] MEDS: Morphine Sulfate 15 MG SR Tablet PO SCH ×2 (09:19→23:29)
[2017-10-10] MEDS: Insulin NovoLOG Aspart Correctional Sugar Inj SQ SCH ×4 (09:20→22:50)
[2017-10-10] MEDS: Octreotide Inj 50 MCG/ML Vial SQ SCH ×2 (09:21→23:24)
--- NOTE | 2017-10-10 09:26 | P.PNONC ---
Subjective Interval history: Afebrile Patient's daughter at bedside. She reports her mom has not had any bowel movements since admission States it seems like she is more clear Patient denies pain or shortness of breath Objective Vital Signs/Intake & Output: Vital Signs 10/09/17 10:06 10/09/17 10:37 10/09/17 14:14 Temperature 97.3 F L 98.8 F 98.9 F Pulse Rate 63 89 89 Respiratory Rate 12 18 18 Blood Pressure 113/60 113/63 157/83 H Pulse Oximetry 99 98 99 10/09/17 14:25 10/09/17 16:00 10/09/17 20:00 Temperature 97.7 F 98.1 F Pulse Rate 35 L 88 81 Respiratory Rate 15 18 16 Blood Pressure 117/66 152/71 H 106/60 Pulse Oximetry 100 95 10/10/17 00:00 10/10/17 04:00 Temperature 97.4 F L 97.3 F L Pulse Rate 83 88 Respiratory Rate 16 20 Blood Pressure 99/60 L 103/60 Pulse Oximetry 96 98 Intake & Output 10/09/17 10/10/17 10/10/17 18:59 06:59 18:59 Intake Total 100 / 100 660 / 660 Output Total 450 / 450 Balance 100 / 100 210 / 210 Weight 150 lb 149 lb 14.629 oz Intake: IV 600 / 600 Azactam Inj 1,000 MG In NS Inj 100 / 100 100 ML @ 200 mls/hr IV.SIG ONCE ONE Rx#:[id number] NS Inj 500 ML @ Wide Open IV. 500 / 500 SIG BOLUS ONE Rx#:[id number] Oral 100 / 100 60 / 60 Output: Urine Amount (Stoma) 450 / 450 Pre-Hospital: Continent 450 / 450 Urostomy Other: Date of Last Bowel Movement 10/09/17 # Bowel Movements 0 Result Diagrams: 10/10/17 05:04 10/10/17 05:04 Laboratory Results: Laboratory Results - last 24 hr 10/09/17 10/09/17 10/09/17 11:00 11:00 11:00 WBC 12.3 H RBC 4.16 Hgb 12.0 Hct 38.2 MCV 91.8 MCH 28.8 MCHC 31.4 L RDW 17.5 H Plt Count 257 MPV 8.7 Prelim Diff (Auto) Neut % (Auto) 79.4 H Lymph % (Auto) 11.9 [place] % (Auto) 8.1 H Eos % (Auto) 0.2 Baso % (Auto) 0.4 Neut # (Auto) 9.7 H Lymph # (Auto) 1.5 [place] # (Auto) 1.0 H Eos # (Auto) 0.0 Baso # (Auto) 0.0 WBC Differential . Seg Neuts % (Manual) Band Neuts % (Manual) Lymphocytes % (Manual) Monocytes % (Manual) Myelocytes % (Man) Abs Neuts (Manual) Nucleated RBCs/100 WBC Differential Comment Auto diff final Platelet Estimate Platelet Morphology [place] Cells Acanthocytes (Spur) Keratocytes PT 11.9 H D INR 1.2 Sodium 141 Potassium 5.1 Chloride 114 H Carbon Dioxide 17.4 L Anion Gap 10 BUN 67 H Creatinine 1.44 H Estimated GFR 35 L POC Glucose Random Glucose 156 H Calcium 8.5 Magnesium 2.3 Total Bilirubin 2.6 H Direct Bilirubin Indirect Bilirubin AST 205 H ALT 243 H Alkaline Phosphatase 621 H Ammonia Total Creatine Kinase 100 Troponin I 0.02 Total Protein 6.2 L Albumin 2.6 L TSH Cortisol Urine Color Urine Clarity Urine pH Ur Specific [place] Urine Protein Urine Glucose (UA) Urine Ketones Urine Occult Blood Urine Nitrate Urine Bilirubin Urine Urobilinogen Ur Leukocyte Esterase Urine RBC Urine WBC Ur Squamous Epith Cells Ur Transition Epith Cell Urine Bacteria Hyaline Casts Micro UA Comment Urine Culture Comments 10/09/17 10/09/17 10/09/17 14:05 14:25 14:25 WBC RBC Hgb Hct MCV MCH MCHC RDW Plt Count MPV Prelim Diff (Auto) Neut % (Auto) Lymph % (Auto) [place] % (Auto) Eos % (Auto) Baso % (Auto) Neut # (Auto) Lymph # (Auto) [place] # (Auto) Eos # (Auto) Baso # (Auto) WBC Differential Seg Neuts % (Manual) Band Neuts % (Manual) Lymphocytes % (Manual) Monocytes % (Manual) Myelocytes % (Man) Abs Neuts (Manual) Nucleated RBCs/100 WBC Differential Comment Platelet Estimate Platelet Morphology [place] Cells Acanthocytes (Spur) Keratocytes PT INR Sodium Potassium Chloride Carbon Dioxide Anion Gap BUN Creatinine Estimated GFR POC Glucose Random Glucose Calcium Magnesium Total Bilirubin Direct Bilirubin Indirect Bilirubin AST ALT Alkaline Phosphatase Ammonia Total Creatine Kinase Troponin I Total Protein Albumin TSH 0.461 Cortisol 15.5 Urine Color [place]akira Urine Clarity Cloudy H Urine pH 6.0 Ur Specific [place] 1.012 Urine Protein 30 H Urine Glucose (UA) Negative Urine Ketones Negative Urine Occult Blood Small H Urine Nitrate Negative Urine Bilirubin Negative Urine Urobilinogen Less than 2 Ur Leukocyte Esterase Small H Urine RBC 3 Urine WBC 64 H Ur Squamous Epith Cells <1 Ur Transition Epith Cell <1 Urine Bacteria Many H Hyaline Casts 1 Micro UA Comment Culture indicated Urine Culture Comments Culture indicated 10/09/17 10/09/17 10/09/17 14:25 14:30 20:51 WBC RBC Hgb Hct MCV MCH MCHC RDW Plt Count MPV Prelim Diff (Auto) Neut % (Auto) Lymph % (Auto) [place] % (Auto) Eos % (Auto) Baso % (Auto) Neut # (Auto) Lymph # (Auto) [place] # (Auto) Eos # (Auto) Baso # (Auto) WBC Differential Seg Neuts % (Manual) Band Neuts % (Manual) Lymphocytes % (Manual) Monocytes % (Manual) Myelocytes % (Man) Abs Neuts (Manual) Nucleated RBCs/100 WBC Differential Comment Platelet Estimate Platelet Morphology [place] Cells Acanthocytes (Spur) Keratocytes PT INR Sodium Potassium Chloride Carbon Dioxide Anion Gap BUN Creatinine Estimated GFR POC Glucose 122 H 143 H Random Glucose Calcium Magnesium Total Bilirubin Direct Bilirubin Indirect Bilirubin AST ALT Alkaline Phosphatase Ammonia 65 H Total Creatine Kinase Troponin I Total Protein Albumin TSH Cortisol Urine Color Urine Clarity Urine pH Ur Specific [place] Urine Protein Urine Glucose (UA) Urine Ketones Urine Occult Blood Urine Nitrate Urine Bilirubin Urine Urobilinogen Ur Leukocyte Esterase Urine RBC Urine WBC Ur Squamous Epith Cells Ur Transition Epith Cell Urine Bacteria Hyaline Casts Micro UA Comment Urine Culture Comments 10/10/17 10/10/17 10/10/17 05:04 05:04 05:04 WBC 10.9 RBC 3.76 L Hgb 11.0 L Hct 34.6 L MCV 92.0 MCH 29.2 MCHC 31.7 L RDW 18.0 H Plt Count 193 MPV 8.7 Prelim Diff (Auto) Slide review pending Neut % (Auto) 84.1 H Lymph % (Auto) 10.5 [place] % (Auto) 5.2 Eos % (Auto) 0.0 Baso % (Auto) 0.2 Neut # (Auto) 9.2 H Lymph # (Auto) 1.1 [place] # (Auto) 0.6 Eos # (Auto) 0.0 Baso # (Auto) 0.0 WBC Differential Manual diff final Seg Neuts % (Manual) 65 Band Neuts % (Manual) 12 H Lymphocytes % (Manual) 11 Monocytes % (Manual) 9 H Myelocytes % (Man) 3 H Abs Neuts (Manual) 8.7 H Nucleated RBCs/100 WBC 1 H Differential Comment . Platelet Estimate Normal Platelet Morphology Normal [place] Cells 1+ H Acanthocytes (Spur) 1+ H Keratocytes Occ H PT 11.2 INR 1.1 Sodium 145 Potassium 5.4 H Chloride 121 H Carbon Dioxide 15.4 L Anion Gap 9 BUN 70 H Creatinine 1.21 H Estimated GFR 42 L POC Glucose Random Glucose 134 H Calcium 8.2 L Magnesium 2.1 Total Bilirubin 1.2 H Direct Bilirubin 0.8 H Indirect Bilirubin 0.4 AST ALT Alkaline Phosphatase Ammonia Total Creatine Kinase Troponin I Total Protein Albumin TSH Cortisol Urine Color Urine Clarity Urine pH Ur Specific [place] Urine Protein Urine Glucose (UA) Urine Ketones Urine Occult Blood Urine Nitrate Urine Bilirubin Urine Urobilinogen Ur Leukocyte Esterase Urine RBC Urine WBC Ur Squamous Epith Cells Ur Transition Epith Cell Urine Bacteria Hyaline Casts Micro UA Comment Urine Culture Comments Imaging Studies: Impressions Liver Ultrasound 10/09/17 00:00 CONCLUSION: 1. No definite acute liver findings. 2. Apparent interval development of left sided hydronephrosis. Chest X-Ray 10/09/17 10:57 CONCLUSION: 1. Linear parenchymal opacity in the right lung base, likely atelectasis/ scarring. 2. New 1 cm sharply demarcated sclerotic lesion in the right proximal humerus concerning for metastatic disease in this patient with history of rectal and breast CA. Head CT 10/09/17 10:58 CONCLUSION: 1. No acute intracranial abnormality is identified. 2. Stable extra-axial partially calcified mass in the left frontal high convexity measuring 12 mm. Imaging features are characteristic of a meningioma. The lesion has been present and not significantly changed since November 2016. 3. Stable chronic findings include mild generalized atrophy and chronic periventricular white matter change. . Medications: Active Medications Generic Name Dose Route Start Last Admin Trade Name Freq PRN Reason Stop Dose Admin Budesonide/Formoterol Fumarate 2 puff 10/09/17 15:00 10/09/17 16:04 Symbicort 160/4.5 Mcg Inh INH Not Given DAILY ARI Heparin Sodium (Porcine) 5,000 units 10/09/17 15:00 10/10/17 06:04 Heparin Inj SQ 5,000 units Q8H ARI Administration Hydralazine HCl 25 mg 10/09/17 18:00 10/09/17 18:23 Apresoline PO 25 mg TID ARI Administration Sodium Chloride 1,000 mls @ 70 mls/hr 10/09/17 15:00 10/09/17 15:54 Ns Inj IV.CONT 70 mls/hr .[id number] ARI Administration Insulin Aspart 0 unit 10/09/17 17:00 10/09/17 21:50 Novolog Insulin Correctional Sugar Inj SQ Not Given ACHS [facility] Protocol Levothyroxine Sodium 112 mcg 10/09/17 15:00 10/10/17 06:04 Synthroid PO 112 mcg DAILY@0600 ARI Administration Levothyroxine Sodium 25 mcg 10/09/17 15:00 10/10/17 06:04 Synthroid PO 25 mcg DAILY@0600 ARI Administration Methenamine Mandelate 500 mg 10/09/17 21:00 10/09/17 21:52 Mandelamine PO Not Given HS [facility] Montelukast Sodium 10 mg 10/09/17 21:00 10/10/17 04:40 Singulair PO Not Given HS ARI Octreotide Acetate 50 mcg 10/09/17 21:00 10/09/17 21:50 Sandostatin Inj SQ 50 mcg Q12HR ARI Administration Cyclosporine( 0 each 10/09/17 21:00 10/09/17 21:52 Restasis) 1 Drop To EACH EYE Not Given Each Eye Bid BID [facility] Prednisone 5 mg 10/09/17 15:00 10/10/17 04:40 Deltasone PO Not Given BID [facility] Objective Remarks: GENERAL: Chronically ill-appearing elderly female resting in bed. She is confused. She is talking about bugs being in her room. SKIN: Warm and dry. HEAD: Normocephalic. EYES: No scleral icterus. No injection or drainage. NECK: Supple, trachea midline. No JVD or lymphadenopathy. CARDIOVASCULAR: Irregular rhythm RESPIRATORY: Clear anteriorly. GASTROINTESTINAL: Abdomen soft, non-tender, nondistended. EXTREMITIES: No cyanosis, or edema. MUSCULOSKELETAL: Generalized weakness NEUROLOGICAL: No obvious focal deficit. Awake, alert, and oriented x3. PSYCHIATRIC: Lethargic but awakens easily to verbal stimuli. Confused. Follows commands. 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 Her carcinoid syndrome has been stable for many years. Most recently she was noted to have increasing chromogranin A suggestive of worsening carcinoid syndrome. 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 She has had definitive surgery and is on adjuvant hormonal therapy. She was admitted with weakness confusion and hypotension. 1. Patient is noted to have urinary tract infection. Micro is pending. She had 1 dose of aztreonam in the emergency room. I will continue this every 12 hours and closely await sensitivity result. The UTI is likely a source of her confusion. 2. Patient is currently on DVT prophylaxis with SQ heparin. We will add on SCDs. Her INR is now subtherapeutic after vitamin K. 3. Patient's daughter has requested that we add on extended release morphine that she has been on for many years. She normally takes this every 8 hours at home. I discussed with the daughter that we will add this on for every 12 hours as we do not want to over sedate her. 4. Noted CXR that showed 1 cm lesion in the right proximal humerus concerning for metastatic disease. 5. Continue IV fluids. Continue supportive care. - Attending Statement The exam, history, and the medical decision-making described in the above note were completed with the assistance of the mid-level provider. I reviewed and agree with the findings presented. I attest that I had a [id number] encounter with the patient on the same day, and personally performed and documented my assessment and findings in the medical record. Patient seen late in the evening. Her son was at bedside having observed her for over 3 hours. She has not woken up for him. She does not recognize him. She was difficult to arouse. She looks confused and was nonverbal. She was at least speaking yesterday evening. I had an honest discussion with the patient' s son. He understands the possibility of a recurrent stroke and that the current deficits are not reversible. He is in favor of palliative management and continued comfort measures. We discussed the concern for her neurologic change. Neurology has been consulted. In the meantime unable to determine if this is delirium versus progression of her stroke or seizures. Her INR is subtherapeutic today but previously supratherapeutic to 8.5 INR. She will ultimately need to resume her Coumadin. CT of head in the emergency room does not show a bleed. Diarrhea has improved. Renal insufficiency appeared to have improved. Ultrasound reveals no hydronephrosis. We will consult urology pending on the outcome and reversibility of her confusion. Urine output seems to be good. Her renal function is improving. CMP will be repeated.
[2017-10-10] MEDS: CYCLOSPORINE EACH EYE SCH ×2 (09:31→21:00)
[2017-10-10] MEDS: Budesonide-Formoterol 160/4.5 MCG 6 GM Inhaler INH SCH (09:31)
--- NOTE | 2017-10-10 12:52 | P.PNIM ---
Subjective Interval history: Patient sleeping, wakes up for exam. Pleasant but disoriented. She says she is comfortable. Denies pain. Per nursing report family has been at bedside, however not at bedside during my exam Physical Exam Vital signs: Vital Signs 10/09/17 14:14 10/09/17 14:25 10/09/17 16:00 Temperature 98.9 F 97.7 F Pulse Rate 89 35 L 88 Respiratory Rate 18 15 18 Blood Pressure 157/83 H 117/66 152/71 H Pulse Oximetry 99 100 10/09/17 20:00 10/10/17 00:00 10/10/17 04:00 Temperature 98.1 F 97.4 F L 97.3 F L Pulse Rate 81 83 88 Respiratory Rate 16 16 20 Blood Pressure 106/60 99/60 L 103/60 Pulse Oximetry 95 96 98 10/10/17 08:00 10/10/17 11:46 Temperature 96.8 F L 96.9 F L Pulse Rate 73 55 L Respiratory Rate 16 18 Blood Pressure 120/64 133/69 Pulse Oximetry 99 98 Intake & Output 10/09/17 10/10/17 10/10/17 18:59 06:59 18:59 Intake Total 100 / 100 660 / 660 Output Total 450 / 450 Balance 100 / 100 210 / 210 Weight 68.039 kg 68 kg Intake: IV 600 / 600 Azactam Inj 1,000 MG In NS Inj 100 / 100 100 ML @ 200 mls/hr IV.SIG ONCE ONE Rx#:[id number] NS Inj 500 ML @ Wide Open IV. 500 / 500 SIG BOLUS ONE Rx#:[id number] Oral 100 / 100 60 / 60 Output: Urine Amount (Stoma) 450 / 450 Pre-Hospital: Continent 450 / 450 Urostomy Other: Date of Last Bowel Movement 10/09/17 # Bowel Movements 0 Narrative: GENERAL: Patient sleeping, wakes up for exam. Pleasant. SKIN: Warm and dry. HEAD: Normocephalic. EYES: No scleral icterus. No injection or drainage. NECK: Supple, trachea midline. No JVD. CARDIOVASCULAR: Regular rate and rhythm without murmurs, gallops, or rubs. RESPIRATORY: Breath sounds equal bilaterally. No accessory muscle use. GASTROINTESTINAL: Abdomen soft, non-tender, nondistended. MUSCULOSKELETAL: No cyanosis,. Trace edema BACK: Nontender without obvious deformity. No CVA tenderness. Results - Labs CBC & Chem 7: 10/10/17 05:04 10/10/17 05:04 Laboratory Results - last 24 hr 10/09/17 10/09/17 10/09/17 14:05 14:25 14:25 WBC RBC Hgb Hct MCV MCH MCHC RDW Plt Count MPV Prelim Diff (Auto) Neut % (Auto) Lymph % (Auto) [place] % (Auto) Eos % (Auto) Baso % (Auto) Neut # (Auto) Lymph # (Auto) [place] # (Auto) Eos # (Auto) Baso # (Auto) WBC Differential Seg Neuts % (Manual) Band Neuts % (Manual) Lymphocytes % (Manual) Monocytes % (Manual) Myelocytes % (Man) Abs Neuts (Manual) Nucleated RBCs/100 WBC Differential Comment Platelet Estimate Platelet Morphology [place] Cells Acanthocytes (Spur) Keratocytes PT INR Sodium Potassium Chloride Carbon Dioxide Anion Gap BUN Creatinine Estimated GFR POC Glucose Random Glucose Calcium Magnesium Total Bilirubin Direct Bilirubin Indirect Bilirubin Ammonia TSH 0.461 Cortisol 15.5 Urine Color Shakira Urine Clarity Cloudy H Urine pH 6.0 Ur Specific [place] 1.012 Urine Protein 30 H Urine Glucose (UA) Negative Urine Ketones Negative Urine Occult Blood Small H Urine Nitrate Negative Urine Bilirubin Negative Urine Urobilinogen Less than 2 Ur Leukocyte Esterase Small H Urine RBC 3 Urine WBC 64 H Ur Squamous Epith Cells <1 Ur Transition Epith Cell <1 Urine Bacteria Many H Hyaline Casts 1 Micro UA Comment Culture indicated Urine Culture Comments Culture indicated 10/09/17 10/09/17 10/09/17 14:25 14:30 20:51 WBC RBC Hgb Hct MCV MCH MCHC RDW Plt Count MPV Prelim Diff (Auto) Neut % (Auto) Lymph % (Auto) [place] % (Auto) Eos % (Auto) Baso % (Auto) Neut # (Auto) Lymph # (Auto) [place] # (Auto) Eos # (Auto) Baso # (Auto) WBC Differential Seg Neuts % (Manual) Band Neuts % (Manual) Lymphocytes % (Manual) Monocytes % (Manual) Myelocytes % (Man) Abs Neuts (Manual) Nucleated RBCs/100 WBC Differential Comment Platelet Estimate Platelet Morphology [place] Cells Acanthocytes (Spur) Keratocytes PT INR Sodium Potassium Chloride Carbon Dioxide Anion Gap BUN Creatinine Estimated GFR POC Glucose 122 H 143 H Random Glucose Calcium Magnesium Total Bilirubin Direct Bilirubin Indirect Bilirubin Ammonia 65 H TSH Cortisol Urine Color Urine Clarity Urine pH Ur Specific [place] Urine Protein Urine Glucose (UA) Urine Ketones Urine Occult Blood Urine Nitrate Urine Bilirubin Urine Urobilinogen Ur Leukocyte Esterase Urine RBC Urine WBC Ur Squamous Epith Cells Ur Transition Epith Cell Urine Bacteria Hyaline Casts Micro UA Comment Urine Culture Comments 10/10/17 10/10/17 10/10/17 05:04 05:04 05:04 WBC 10.9 RBC 3.76 L Hgb 11.0 L Hct 34.6 L MCV 92.0 MCH 29.2 MCHC 31.7 L RDW 18.0 H Plt Count 193 MPV 8.7 Prelim Diff (Auto) Slide review pending Neut % (Auto) 84.1 H Lymph % (Auto) 10.5 [place] % (Auto) 5.2 Eos % (Auto) 0.0 Baso % (Auto) 0.2 Neut # (Auto) 9.2 H Lymph # (Auto) 1.1 [place] # (Auto) 0.6 Eos # (Auto) 0.0 Baso # (Auto) 0.0 WBC Differential Manual diff final Seg Neuts % (Manual) 65 Band Neuts % (Manual) 12 H Lymphocytes % (Manual) 11 Monocytes % (Manual) 9 H Myelocytes % (Man) 3 H Abs Neuts (Manual) 8.7 H Nucleated RBCs/100 WBC 1 H Differential Comment . Platelet Estimate Normal Platelet Morphology Normal [place] Cells 1+ H Acanthocytes (Spur) 1+ H Keratocytes Occ H PT 11.2 INR 1.1 Sodium 145 Potassium 5.4 H Chloride 121 H Carbon Dioxide 15.4 L Anion Gap 9 BUN 70 H Creatinine 1.21 H Estimated GFR 42 L POC Glucose Random Glucose 134 H Calcium 8.2 L Magnesium 2.1 Total Bilirubin 1.2 H Direct Bilirubin 0.8 H Indirect Bilirubin 0.4 Ammonia TSH Cortisol Urine Color Urine Clarity Urine pH Ur Specific [place] Urine Protein Urine Glucose (UA) Urine Ketones Urine Occult Blood Urine Nitrate Urine Bilirubin Urine Urobilinogen Ur Leukocyte Esterase Urine RBC Urine WBC Ur Squamous Epith Cells Ur Transition Epith Cell Urine Bacteria Hyaline Casts Micro UA Comment Urine Culture Comments 10/10/17 11:14 WBC RBC Hgb Hct MCV MCH MCHC RDW Plt Count MPV Prelim Diff (Auto) Neut % (Auto) Lymph % (Auto) [place] % (Auto) Eos % (Auto) Baso % (Auto) Neut # (Auto) Lymph # (Auto) [place] # (Auto) Eos # (Auto) Baso # (Auto) WBC Differential Seg Neuts % (Manual) Band Neuts % (Manual) Lymphocytes % (Manual) Monocytes % (Manual) Myelocytes % (Man) Abs Neuts (Manual) Nucleated RBCs/100 WBC Differential Comment Platelet Estimate Platelet Morphology [place] Cells Acanthocytes (Spur) Keratocytes PT INR Sodium Potassium Chloride Carbon Dioxide Anion Gap BUN Creatinine Estimated GFR POC Glucose 165 H Random Glucose Calcium Magnesium Total Bilirubin Direct Bilirubin Indirect Bilirubin Ammonia TSH Cortisol Urine Color Urine Clarity Urine pH Ur Specific [place] Urine Protein Urine Glucose (UA) Urine Ketones Urine Occult Blood Urine Nitrate Urine Bilirubin Urine Urobilinogen Ur Leukocyte Esterase Urine RBC Urine WBC Ur Squamous Epith Cells Ur Transition Epith Cell Urine Bacteria Hyaline Casts Micro UA Comment Urine Culture Comments - Imaging Impressions Liver Ultrasound 10/09/17 00:00 CONCLUSION: 1. No definite acute liver findings. 2. Apparent interval development of left sided hydronephrosis. Head CT 10/09/17 10:58 CONCLUSION: 1. No acute intracranial abnormality is identified. 2. Stable extra-axial partially calcified mass in the left frontal high convexity measuring 12 mm. Imaging features are characteristic of a meningioma. The lesion has been present and not significantly changed since November 2016. 3. Stable chronic findings include mild generalized atrophy and chronic periventricular white matter change. . Assessment and Plan - Assessment (1) Toxic metabolic encephalopathy Code(s): G92 - Toxic encephalopathy Status: Acute (2) Carcinoid tumor Code(s): D3A.00 - Benign carcinoid tumor of unspecified site Status: Acute (3) ARF (acute renal failure) Code(s): N17.9 - Acute kidney failure, unspecified Status: Acute (4) Hyperammonemia Code(s): E72.20 - Disorder of urea cycle metabolism, unspecified Status: Acute (5) Diabetes Code(s): E11.9 - Type 2 diabetes mellitus without complications Status: Acute - Plan 87-year-old female with //Toxic and metabolic encephalopathy Multifactorial Ammonia level [address] noted and reviewed by me without any intracranial abnormalities = Likely secondary to UTI. Also would recommend minimizing narcotics, however family would like discontinued. //Hyperammonemia Ammonia level 65 Liver ultrasound noted and reviewed by me with no definite acute liver findings Treatment with lactulose = 10/10. Avoid lactulose due to diarrhea. We will start rifaximin. //Transaminitis Ultrasound noted Hold Statin Monitor LFTs = Bilirubin improving. Monitor LFTs. //Diarrhea Rule out C. difficile with C diff PCR, check stool for ova and parasite However this may be due to carcinoid tumor = Treatment as per hematology with octreotide equivalent. Appreciate assistance. //History of carcinoid tumor Consult oncology = Continue octreotide subcu as per oncology. Appreciate assistance //Acute UTI = Urinalysis with 70s white blood cells Continue aztreonam for treatment. Follow-up urine cultures. //Acute renal injury Prerenal, secondary to dehydration Continue with gentle IV fluid hydration and monitor BUN and creatinine = Creatinine improved to baseline. Continue to monitor. //Non-anion gap metabolic acidosis = Worsening with bicarb of 15 today. Secondary to diarrhea. Start on fluids with bicarb. Continue to monitor. //Leukocytosis Stress reactive versus steroid use Monitor WBC = Improved. Continue to monitor. //Diabetes type 2 Hold oral hypoglycemic agent along with basal insulin until patient's appetite increased along with improvement of renal function Start insulin sliding scale with fingerstick blood glucose monitoring //Hypertension Resume oral antihypertensive medications = Blood pressure acceptable. Continue to monitor. //History of atrial fibrillation Currently in normal sinus rhythm = Stable. Continue Coumadin and continue atenolol //History of DVT Resume Coumadin = Hematology following. Appreciate assistance. //History of breast cancer Resume Arimidex Consul oncology Discharge Planning: Urine culture pending. Need improvement in diarrhea. Pending improvement. PT following. Will need oncology clearance. 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
[2017-10-10] MEDS ORDERED: Sodium Bicarbonate 8.4% Inj 75 MEQ in Dextrose 5% in Water Inj 925 ML IV.CONT SCH ×2 (13:00)
[2017-10-10] MEDS: Sod Chloride 0.9% Inj 1,000 ML IV.CONT SCH (14:36)
[2017-10-10] MEDS: STERILE IV.CONT SCH (16:10)
[2017-10-10] MEDS: WATER FOR INJ IV.CONT SCH (16:10)
[2017-10-10] MEDS: SODIUM BICARBONATE IV.CONT SCH (16:10)
[2017-10-10] MEDS: Methenamine Mandelate 500 MG Tablet PO SCH (21:00)
[2017-10-10 22:31] LABS: Alanine Aminotransferase 237 U/L (10-53); Albumin 2.5 g/dL (3.4-5.0); Alkaline Phosphatase 513 U/L (45-117); Anion Gap 10 meq/L (5-15); Aspartate Aminotransferase 157 U/L (15-37); Blood Urea Nitrogen 65 mg/dL (7-18); Calcium 8.9 mg/dL (8.5-10.1); Carbon Dioxide 17.7 meq/L (21.0-32.0); Chloride 117 meq/L (98-107); Glomerular Filtration Rate 40 mL/min (>89); Glucose,Random 142 mg/dL (74-106); Potassium 4.6 meq/L (3.5-5.1); Sodium 145 meq/L (136-145); Total Protein 5.8 g/dL (6.4-8.2)
--- NOTE | 2017-10-10 23:00 | MB ---
cc: Emanuel Mcpherson MD, PhD DATE: 10/10/2017 REASON FOR CONSULTATION: Mental status change. HISTORY OF PRESENT ILLNESS: Ms. Hill is an 87-year-old woman who has a history of metastatic carcinoid as well as history of breast cancer. She also has atrial fibrillation for which she takes Coumadin. Over the past week, she has developed significant diarrhea, altered mental status changes with confusion and disorientation. She was seen in the medical oncology clinic earlier and found to be dehydrated and hypotensive. She had an elevated INR and was given vitamin K. She still was not eating with diarrhea and was brought to the ER again with more confusion and generalized weakness. She has become less responsive even today. PAST MEDICAL HISTORY: History of metastatic carcinoid, anxiety, hypercholesterolemia, COPD, coronary artery disease, atrial fibrillation, history of stroke in the past, hypothyroidism, hypertension, stoma, appendectomy, bovine valve replacement, bowel resection, breast cancer, cholecystectomy, cystectomy. ALLERGIES: CODEINE, AMBIEN, DRAMAMINE, KEFLEX. CURRENT MEDICATIONS: 1. Arimidex. 2. Tenormin. 3. Symbicort. 4. Glucagon. 5. Subcutaneous heparin 5000 units t.i.d. 6. Apresoline 25 mg t.i.d. 7. Insulin. 8. Lactulose. 9. Synthroid. 10. Mandelamine. 11. Singulair. 12. Oramorph. 13. Sandostatin injection. 14. Paxil 30 mg daily. 15. Cyclosporine eyedrops. 16. Prednisone 5 mg b.i.d. 17. Rifaximin 200 mg t.i.d. 18. Senokot. 19. Vitamin D. NEUROLOGICAL EXAMINATION: VITAL SIGNS: Blood pressure 120/64, pulse 73, respirations 16, temperature 96 degrees. HIGHER CORTICAL FUNCTION: The patient is lethargic. She is not responsive, does not follow commands. No speech output. CRANIAL NERVES: Intact. There is no facial asymmetry. The pupils are equal. MOTOR: She is weak in general. There is no focal deficit. No posturing. IMAGING DATA: CT brain, no acute change. There appears to be a meningioma in the left frontal area which has not changed from last November. LABORATORY DATA: White count 10,900, hemoglobin 11, hematocrit 44.6%, platelet count 193,000. PT 11.9, INR 1.2. Sodium 145, potassium 5.4, chloride 121, CO2 of 15.4, BUN 70, creatinine 1.21, glucose 143. IMPRESSION: Mental status change, possibly related to encephalopathy from dehydration. However, with a history of stroke and atrial fibrillation, recommend ruling out stroke. We will try to get an MRI of the brain. They attempted to get an MRI of the brain earlier today, but could not do so because of agitation. Therefore, we will reorder it with sedation. We will also obtain an EEG. Emanuel Mcpherson MD, PhD HOLLY/saqib , 10:20 PM , 10:28 PM
[2017-10-10] MEDS: Morphine Sulfate 15 MG IR Tablet PO PRN (23:24)
[2017-10-11] MEDS: WATER FOR INJ IV.CONT SCH ×2 (06:04→18:33)
[2017-10-11] MEDS: STERILE IV.CONT SCH ×2 (06:04→18:33)
[2017-10-11] MEDS: SODIUM BICARBONATE IV.CONT SCH ×2 (06:04→18:33)
[2017-10-11] MEDS: Levothyroxine 112 MCG Tablet PO SCH (06:24)
[2017-10-11 06:27] LABS: INR 1.3 Ratio
[2017-10-11 06:50] LABS: Albumin 2.5 g/dL (3.4-5.0); Anion Gap 13 meq/L (5-15); Blood Urea Nitrogen 67 mg/dL (7-18); Calcium 8.5 mg/dL (8.5-10.1); Carbon Dioxide 15.5 meq/L (21.0-32.0); Chloride 115 meq/L (98-107); Glomerular Filtration Rate 46 mL/min (>89); Glucose,Random 150 mg/dL (74-106); Potassium 4.4 meq/L (3.5-5.1); Sodium 143 meq/L (136-145)
[2017-10-11 06:52] LABS: Alanine Aminotransferase 232 U/L (10-53); Aspartate Aminotransferase 160 U/L (15-37)
[2017-10-11 06:54] LABS: Alkaline Phosphatase 508 U/L (45-117); Total Protein 5.7 g/dL (6.4-8.2)
[2017-10-11 07:15] LABS: Baso # (Auto) 0.1 th/mm3 (0.0-0.2); Baso % (Auto) 0.6 % (0.0-2.0); Eos % (Auto) 0.4 % (0.0-4.0); Hematocrit 34.4 % (35.0-46.0); Lymph # (Auto) 1.3 th/mm3 (1.0-4.8); Lymph % (Auto) 14.6 % (9.0-44.0); Mean Corpuscular HGB Conc 32.1 % (32.0-36.0); Mean Corpuscular Hemoglobin 29.6 pg (27.0-34.0); Mean Corpuscular Volume 91.9 fL (80.0-100.0); Mean Platelet Volume 8.8 fL (7.0-11.0); Mono # (Auto) 0.8 th/mm3 (0.0-0.9); Mono % (Auto) 9.3 % (0.0-8.0); Neut # (Auto) 6.8 th/mm3 (1.8-7.7); Neut % (Auto) 75.1 % (16.0-70.0); Platelet Count 231 th/mm3 (150-450); Red Blood Count 3.74 mil/mm3 (4.00-5.30); Red Cell Distribution Width 17.7 % (11.6-17.2); White Blood Count 9.1 th/mm3 (4.0-11.0)
[2017-10-11] MEDS: Heparin - SQ 10,000 UNITS/ML Vial SQ SCH ×3 (07:19→23:00)
[2017-10-11 08:11] LABS: Lymphocytes 5 % (9-44); Metamyelocytes 2 % (0-1); Monocytes 5 % (0-8); Myelocytes 2 % (0-0); Platelet Estimate Normal (Normal); Platelet Morphology Normal (Normal); Promyelocyte 1 % (0-0)
[2017-10-11 08:12] LABS: Ovalocytes 2+
[2017-10-11] MEDS ORDERED: Gadobutrol PF 7.5 MMOL/7.5 ML Vial (for RAD) IV.SIG ONE (08:54)
[2017-10-11] MEDS: CYCLOSPORINE EACH EYE SCH ×2 (09:20→21:53)
[2017-10-11] MEDS: Morphine Sulfate 15 MG SR Tablet PO SCH ×2 (09:20→21:53)
[2017-10-11] MEDS: Octreotide Inj 50 MCG/ML Vial SQ SCH ×2 (09:20→21:37)
[2017-10-11] MEDS: Anastrozole 1 MG Tablet PO SCH (09:20)
[2017-10-11] MEDS: Atenolol 50 MG Tablet PO SCH (09:20)
[2017-10-11] MEDS: Insulin NovoLOG Aspart Correctional Sugar Inj SQ SCH ×4 (09:25→21:47)
--- NOTE | 2017-10-11 09:28 | MR ---
EXAM DATE: 10/11/2017 9:13 AM EDT AGE/SEX: 87 years / Female INDICATIONS: Altered mental status. History of cancer. CLINICAL DATA: This is the patient's initial encounter. Patient reports that signs and symptoms have been present for 1 day and indicates a pain score of 1/10. MEDICAL/SURGICAL HISTORY: Carcinoma, bladder. Carcinoma, breast. Carcinoma, colon. DM, Strok e, DVT, CVA. Hysterectomy. Discectomy, lumbar. Cholecystectomy. Cardiac cath, CABG, Urostomy. [place] [facility] [place] 12/29/2016. . TECHNIQUE: Multiplanar, multisequence examination of the brain was performed without and with 7 ml Ga davist (gadobutrol) contrast as a single exam dose. FINDINGS: Cerebrum: The ventricles are normal for age. No evidence of midline shift, mass lesion, hemorrhage or acute infarction. No extraaxial fluid collections are seen. The pituitary gland and suprasellar cistern are normal in configuration. White Matter: Periventricular white matter hyperintensity again seen indicating chronic small vessel ischemic change. Posterior Fossa: There is an old infarct in the left cerebellar hemisphere. Posterior fossa otherwise within normal limits. Diffusion Imaging: No focal areas of restricted diffusion are seen. No evidence of acute infarction . Extracranial: The visualized portions of the orbits and paranasal sinuses are unremarkable. Post Contrast: No abnormal areas of parenchymal or dural enhancement. CONCLUSION: 1. No acute intracranial findings. 2. Chronic ischemic findings. Electronically signed by: Neri Bryant MD 10/11/2017 9:27 AM EDT
[2017-10-11] MEDS: hydrALAZINE 25 MG Tablet PO SCH ×3 (10:37→19:16)
[2017-10-11] MEDS: Budesonide-Formoterol 160/4.5 MCG 6 GM Inhaler INH SCH (10:38)
[2017-10-11] MEDS: predniSONE 5 MG Tablet PO SCH ×2 (10:39→21:53)
--- NOTE | 2017-10-11 11:09 | P.PNIM ---
Subjective Interval history: Patient given Ativan this morning for MRI. She is currently sedated and unable to provide any history. Discussed with son at bedside. He is concerned about withdrawal if she does not take her long-acting morphine. However he understands the need to hold sedating medications at this time. Physical Exam Vital signs: Vital Signs 10/10/17 11:46 10/10/17 16:00 10/10/17 19:48 Temperature 96.9 F L 98.2 F Pulse Rate 55 L 79 82 Respiratory Rate 18 18 18 Blood Pressure 133/69 111/62 127/65 Pulse Oximetry 98 97 97 10/10/17 20:02 10/10/17 23:59 10/11/17 00:00 Temperature 97.7 F Pulse Rate 85 90 Respiratory Rate 18 20 Blood Pressure 147/78 H Pulse Oximetry 100 10/11/17 00:09 10/11/17 04:00 10/11/17 04:13 Temperature Pulse Rate 77 84 Respiratory Rate 18 Blood Pressure Pulse Oximetry 10/11/17 04:45 10/11/17 09:20 Temperature 98.4 F Pulse Rate 83 Respiratory Rate 20 20 Blood Pressure 144/81 H Pulse Oximetry 98 Intake & Output 10/10/17 10/11/17 10/11/17 18:59 06:59 18:59 Intake Total 460 / 460 1100 / 1100 Output Total 650 / 650 900 / 900 Balance -190 / -190 200 / 200 Weight 69.7 kg Intake: IV 100 / 100 1100 / 1100 Sodium Bicarbonate 8.4% Inj 75 1000 / 1000 MEQ In Sterile Water for Inj 925 ML @ 100 mls/hr IV.CONT . Q10H ARI Rx#:[id number] Azactam Inj 1,000 MG In NS Inj 100 / 100 100 / 100 100 ML @ 200 mls/hr IV.SIG Q12H ARI Rx#:[id number] Oral 360 / 360 Output: Urine Amount (Stoma) 650 / 650 900 / 900 Pre-Hospital: Continent 650 / 650 900 / 900 Urostomy Other: Date of Last Bowel Movement 10/08/17 10/08/17 10/10/17 Narrative: GENERAL: Sedated CARDIOVASCULAR: Regular rate and rhythm without murmurs, gallops, or rubs. RESPIRATORY: Breath sounds equal bilaterally. No accessory muscle use. GASTROINTESTINAL: Abdomen soft, non-tender, nondistended. MUSCULOSKELETAL: No cyanosis,. Trace edema Results - Labs CBC & Chem 7: 10/11/17 05:17 10/11/17 05:17 Laboratory Results - last 24 hr 10/09/17 10/10/17 10/10/17 14:05 11:14 16:12 WBC RBC Hgb Hct MCV MCH MCHC RDW Plt Count MPV Prelim Diff (Auto) Neut % (Auto) Lymph % (Auto) Burt % (Auto) Eos % (Auto) Baso % (Auto) Neut # (Auto) Lymph # (Auto) [place] # (Auto) Eos # (Auto) Baso # (Auto) WBC Differential Seg Neuts % (Manual) Band Neuts % (Manual) Lymphocytes % (Manual) Monocytes % (Manual) Metamyelocytes % (Man) Myelocytes % (Man) Promyelocytes % (Man) Abs Neuts (Manual) Differential Comment Platelet Estimate Platelet Morphology Ovalocytes Keratocytes PT INR Sodium Potassium Chloride Carbon Dioxide Anion Gap BUN Creatinine Estimated GFR POC Glucose 165 H 157 H Random Glucose Calcium Total Bilirubin AST ALT Alkaline Phosphatase Total Protein Albumin Urine Color Shakira Urine Clarity Cloudy H Urine pH 6.0 Ur Specific [place] 1.012 Urine Protein 30 H Urine Glucose (UA) Negative Urine Ketones Negative Urine Occult Blood Small H Urine Nitrate Negative Urine Bilirubin Negative Urine Urobilinogen Less than 2 Ur Leukocyte Esterase Small H Urine RBC 3 Urine WBC 64 H Ur Squamous Epith Cells <1 Ur Transition Epith Cell <1 Urine Bacteria Many H Hyaline Casts 1 Micro UA Comment Culture indicated Urine Culture Comments Culture indicated 10/10/17 10/10/17 10/11/17 21:51 22:49 05:17 WBC 9.1 RBC 3.74 L Hgb 11.0 L Hct 34.4 L MCV 91.9 MCH 29.6 MCHC 32.1 RDW 17.7 H Plt Count 231 MPV 8.8 Prelim Diff (Auto) Slide review pending Neut % (Auto) 75.1 H Lymph % (Auto) 14.6 Burt % (Auto) 9.3 H Eos % (Auto) 0.4 Baso % (Auto) 0.6 Neut # (Auto) 6.8 Lymph # (Auto) 1.3 Burt # (Auto) 0.8 Eos # (Auto) 0.0 Baso # (Auto) 0.1 WBC Differential Manual diff final Seg Neuts % (Manual) 84 H Band Neuts % (Manual) 1 Lymphocytes % (Manual) 5 L Monocytes % (Manual) 5 Metamyelocytes % (Man) 2 H Myelocytes % (Man) 2 H Promyelocytes % (Man) 1 H Abs Neuts (Manual) 8.2 H Differential Comment . Platelet Estimate Normal Platelet Morphology Normal Ovalocytes 2+ H Keratocytes Occ H PT INR Sodium 145 Potassium 4.6 D Chloride 117 H Carbon Dioxide 17.7 L Anion Gap 10 BUN 65 H Creatinine 1.27 H Estimated GFR 40 L POC Glucose 141 H Random Glucose 142 H Calcium 8.9 Total Bilirubin 1.5 H AST 157 H ALT 237 H Alkaline Phosphatase 513 H Total Protein 5.8 L Albumin 2.5 L Urine Color Urine Clarity Urine pH Ur Specific [place] Urine Protein Urine Glucose (UA) Urine Ketones Urine Occult Blood Urine Nitrate Urine Bilirubin Urine Urobilinogen Ur Leukocyte Esterase Urine RBC Urine WBC Ur Squamous Epith Cells Ur Transition Epith Cell Urine Bacteria Hyaline Casts Micro UA Comment Urine Culture Comments 10/11/17 10/11/17 10/11/17 05:17 05:17 09:33 WBC RBC Hgb Hct MCV MCH MCHC RDW Plt Count MPV Prelim Diff (Auto) Neut % (Auto) Lymph % (Auto) [place] % (Auto) Eos % (Auto) Baso % (Auto) Neut # (Auto) Lymph # (Auto) [place] # (Auto) Eos # (Auto) Baso # (Auto) WBC Differential Seg Neuts % (Manual) Band Neuts % (Manual) Lymphocytes % (Manual) Monocytes % (Manual) Metamyelocytes % (Man) Myelocytes % (Man) Promyelocytes % (Man) Abs Neuts (Manual) Differential Comment Platelet Estimate Platelet Morphology Ovalocytes Keratocytes PT 13.0 H INR 1.3 Sodium 143 Potassium 4.4 Chloride 115 H Carbon Dioxide 15.5 L Anion Gap 13 BUN 67 H Creatinine 1.12 H Estimated GFR 46 L POC Glucose 146 H Random Glucose 150 H Calcium 8.5 Total Bilirubin 2.2 H AST 160 H ALT 232 H Alkaline Phosphatase 508 H Total Protein 5.7 L Albumin 2.5 L Urine Color Urine Clarity Urine pH Ur Specific [place] Urine Protein Urine Glucose (UA) Urine Ketones Urine Occult Blood Urine Nitrate Urine Bilirubin Urine Urobilinogen Ur Leukocyte Esterase Urine RBC Urine WBC Ur Squamous Epith Cells Ur Transition Epith Cell Urine Bacteria Hyaline Casts Micro UA Comment Urine Culture Comments Microbiology 10/09/17 14:05 Clean Catch Urine Urine Culture - Final Citrobacter freundii - Imaging Impressions Head MRI 10/11/17 00:00 CONCLUSION: 1. No acute intracranial findings. 2. Chronic ischemic findings. Assessment and Plan - Assessment (1) Toxic metabolic encephalopathy Code(s): G92 - Toxic encephalopathy Status: Acute (2) Carcinoid tumor Code(s): D3A.00 - Benign carcinoid tumor of unspecified site Status: Acute (3) ARF (acute renal failure) Code(s): N17.9 - Acute kidney failure, unspecified Status: Acute (4) Hyperammonemia Code(s): E72.20 - Disorder of urea cycle metabolism, unspecified Status: Acute (5) Diabetes Code(s): E11.9 - Type 2 diabetes mellitus without complications Status: Acute - Plan 87-year-old female with Acute toxic and metabolic encephalopathy Multifactorial Ammonia level [address] noted and reviewed by me without any intracranial abnormalities. UTI may be contributing. Recommend minimizing sedating medications. Patient is currently sedated from Ativan. Hold long acting Morphine for now Appreciate Neurology input. MRI neg. EEG pending. Acute UTI: Urine grew Citrobacter. pansensitive. - De escalate antibiotics. Switch from Aztreonam to Cipro Hyperammonemia Ammonia level 65 Liver ultrasound noted with no definite acute liver findings Continue rifaximin. Transaminitis Ultrasound noted Hold Statin Monitor LFTs Diarrhea: Resolved. this may be due to carcinoid tumor Treatment as per hematology with octreotide equivalent. Appreciate assistance. History of carcinoid tumor Continue octreotide subcu as per oncology. Appreciate assistance Acute renal injury Prerenal, secondary to dehydration Continue with gentle IV fluid hydration and monitor BUN and creatinine Creatinine improved to baseline. Continue to monitor. Diabetes type 2 Hold oral hypoglycemic agent along with basal insulin until patient's appetite increased along with improvement of renal function Start insulin sliding scale with fingerstick blood glucose monitoring Hypertension Blood pressure acceptable. Continue to monitor. History of atrial fibrillation Currently in normal sinus rhythm Stable. Continue Coumadin and continue atenolol History of DVT Resume Coumadin Hematology following. Appreciate assistance. History of breast cancer Resume Arimidex Discharge Planning: Need improvement in mental status. May need SNF. (5) Diabetes Qualifiers: Diabetes mellitus type: type 2 Diabetes mellitus buttermaker insulin use: with buttermaker use Diabetes mellitus complication status: without complication Qualified Code(s): E11.9 - Type 2 diabetes mellitus without complications; Z79.4 - oil heaterman (current) use of insulin
--- NOTE | 2017-10-11 12:11 | P.PNONC ---
Subjective Interval history: Afebrile. Patient appears to be sleeping, she is currently snoring. Document Preparation Specialist just completed her EEG. Patient was given Ativan for her MRI this morning. Her son appears at the bedside. We have discussed holding any sedating medications while the patient is lethargic. He has concerns about her going into "DTs", I have discussed with him that we will monitor for this, however her long-acting pain medications could be causing this excessive sedation. He is agreeable and all questions have been answered. Objective Vital Signs/Intake & Output: Vital Signs 10/10/17 16:00 10/10/17 19:48 10/10/17 20:02 Temperature 98.2 F Pulse Rate 79 82 85 Respiratory Rate 18 18 Blood Pressure 111/62 127/65 Pulse Oximetry 97 97 10/10/17 23:59 10/11/17 00:00 10/11/17 00:09 Temperature 97.7 F Pulse Rate 90 77 Respiratory Rate 18 20 Blood Pressure 147/78 H Pulse Oximetry 100 10/11/17 04:00 10/11/17 04:13 10/11/17 04:45 Temperature 98.4 F Pulse Rate 84 83 Respiratory Rate 18 20 Blood Pressure 144/81 H Pulse Oximetry 98 10/11/17 09:20 Temperature Pulse Rate Respiratory Rate 20 Blood Pressure Pulse Oximetry Intake & Output 10/10/17 10/11/17 10/11/17 18:59 06:59 18:59 Intake Total 460 / 460 1100 / 1100 Output Total 650 / 650 900 / 900 Balance -190 / -190 200 / 200 Weight 69.7 kg Intake: IV 100 / 100 1100 / 1100 Sodium Bicarbonate 8.4% Inj 75 1000 / 1000 MEQ In Sterile Water for Inj 925 ML @ 100 mls/hr IV.CONT . Q10H ARI Rx#:[id number] Azactam Inj 1,000 MG In NS Inj 100 / 100 100 / 100 100 ML @ 200 mls/hr IV.SIG Q12H ARI Rx#:[id number] Oral 360 / 360 Output: Urine Amount (Stoma) 650 / 650 900 / 900 Pre-Hospital: Continent 650 / 650 900 / 900 Urostomy Other: Date of Last Bowel Movement 10/08/17 10/08/17 10/10/17 Result Diagrams: 10/11/17 05:17 08/18/18 05:17 Laboratory Results: Laboratory Results - last 24 hr 10/09/17 10/10/17 10/10/17 14:05 16:12 21:51 WBC RBC Hgb Hct MCV MCH MCHC RDW Plt Count MPV Prelim Diff (Auto) Neut % (Auto) Lymph % (Auto) [place] % (Auto) Eos % (Auto) Baso % (Auto) Neut # (Auto) Lymph # (Auto) [place] # (Auto) Eos # (Auto) Baso # (Auto) WBC Differential Seg Neuts % (Manual) Band Neuts % (Manual) Lymphocytes % (Manual) Monocytes % (Manual) Metamyelocytes % (Man) Myelocytes % (Man) Promyelocytes % (Man) Abs Neuts (Manual) Differential Comment Platelet Estimate Platelet Morphology Ovalocytes Keratocytes PT INR Sodium 145 Potassium 4.6 D Chloride 117 H Carbon Dioxide 17.7 L Anion Gap 10 BUN 65 H Creatinine 1.27 H Estimated GFR 40 L POC Glucose 157 H Random Glucose 142 H Calcium 8.9 Total Bilirubin 1.5 H AST 157 H ALT 237 H Alkaline Phosphatase 513 H Total Protein 5.8 L Albumin 2.5 L Urine Color Shakira Urine Clarity Cloudy H Urine pH 6.0 Ur Specific [place] 1.012 Urine Protein 30 H Urine Glucose (UA) Negative Urine Ketones Negative Urine Occult Blood Small H Urine Nitrate Negative Urine Bilirubin Negative Urine Urobilinogen Less than 2 Ur Leukocyte Esterase Small H Urine RBC 3 Urine WBC 64 H Ur Squamous Epith Cells <1 Ur Transition Epith Cell <1 Urine Bacteria Many H Hyaline Casts 1 Micro UA Comment Culture indicated Urine Culture Comments Culture indicated 10/10/17 10/11/17 10/11/17 22:49 05:17 05:17 WBC 9.1 RBC 3.74 L Hgb 11.0 L Hct 34.4 L MCV 91.9 MCH 29.6 MCHC 32.1 RDW 17.7 H Plt Count 231 MPV 8.8 Prelim Diff (Auto) Slide review pending Neut % (Auto) 75.1 H Lymph % (Auto) 14.6 [place] % (Auto) 9.3 H Eos % (Auto) 0.4 Baso % (Auto) 0.6 Neut # (Auto) 6.8 Lymph # (Auto) 1.3 [place] # (Auto) 0.8 Eos # (Auto) 0.0 Baso # (Auto) 0.1 WBC Differential Manual diff final Seg Neuts % (Manual) 84 H Band Neuts % (Manual) 1 Lymphocytes % (Manual) 5 L Monocytes % (Manual) 5 Metamyelocytes % (Man) 2 H Myelocytes % (Man) 2 H Promyelocytes % (Man) 1 H Abs Neuts (Manual) 8.2 H Differential Comment . Platelet Estimate Normal Platelet Morphology Normal Ovalocytes 2+ H Keratocytes Occ H PT 13.0 H INR 1.3 Sodium Potassium Chloride Carbon Dioxide Anion Gap BUN Creatinine Estimated GFR POC Glucose 141 H Random Glucose Calcium Total Bilirubin AST ALT Alkaline Phosphatase Total Protein Albumin Urine Color Urine Clarity Urine pH Ur Specific [place] Urine Protein Urine Glucose (UA) Urine Ketones Urine Occult Blood Urine Nitrate Urine Bilirubin Urine Urobilinogen Ur Leukocyte Esterase Urine RBC Urine WBC Ur Squamous Epith Cells Ur Transition Epith Cell Urine Bacteria Hyaline Casts Micro UA Comment Urine Culture Comments 10/11/17 10/11/17 05:17 09:33 WBC RBC Hgb Hct MCV MCH MCHC RDW Plt Count MPV Prelim Diff (Auto) Neut % (Auto) Lymph % (Auto) [place] % (Auto) Eos % (Auto) Baso % (Auto) Neut # (Auto) Lymph # (Auto) [place] # (Auto) Eos # (Auto) Baso # (Auto) WBC Differential Seg Neuts % (Manual) Band Neuts % (Manual) Lymphocytes % (Manual) Monocytes % (Manual) Metamyelocytes % (Man) Myelocytes % (Man) Promyelocytes % (Man) Abs Neuts (Manual) Differential Comment Platelet Estimate Platelet Morphology Ovalocytes Keratocytes PT INR Sodium 143 Potassium 4.4 Chloride 115 H Carbon Dioxide 15.5 L Anion Gap 13 BUN 67 H Creatinine 1.12 H Estimated GFR 46 L POC Glucose 146 H Random Glucose 150 H Calcium 8.5 Total Bilirubin 2.2 H AST 160 H ALT 232 H Alkaline Phosphatase 508 H Total Protein 5.7 L Albumin 2.5 L Urine Color Urine Clarity Urine pH Ur Specific [place] Urine Protein Urine Glucose (UA) Urine Ketones Urine Occult Blood Urine Nitrate Urine Bilirubin Urine Urobilinogen Ur Leukocyte Esterase Urine RBC Urine WBC Ur Squamous Epith Cells Ur Transition Epith Cell Urine Bacteria Hyaline Casts Micro UA Comment Urine Culture Comments Culture Results: Microbiology 10/09/17 14:05 Urine Culture - Final Clean Catch Urine Citrobacter freundii Imaging Studies: Impressions Head MRI 10/11/17 00:00 CONCLUSION: 1. No acute intracranial findings. 2. Chronic ischemic findings. Medications: Active Medications Generic Name Dose Route Start Last Admin Trade Name Freq PRN Reason Stop Dose Admin Anastrozole 1 mg 10/10/17 09:00 10/10/17 09:19 Arimidex PO 1 mg DAILY ARI Administration Atenolol 50 mg 10/10/17 09:00 10/10/17 09:19 Tenormin PO 50 mg DAILY ARI Administration Budesonide/Formoterol Fumarate 2 puff 10/09/17 15:00 10/11/17 10:38 Symbicort 160/4.5 Mcg Inh INH Not Given DAILY [facility] Heparin Sodium (Porcine) 5,000 units 10/09/17 15:00 10/11/17 07:19 Heparin Inj SQ Not Given Q8H [facility] Hydralazine HCl 25 mg 10/09/17 18:00 10/11/17 10:37 Apresoline PO Not Given TID [facility] Aztreonam 1,000 mg/ Sodium 100 mls @ 200 mls/hr 10/10/17 11:00 10/11/17 00:11 Chloride IV.SIG Infused Q12H [facility] Infusion Sodium Bicarbonate 75 meq/ 1,000 mls @ 100 mls/hr 10/10/17 14:00 10/11/17 06: 04 Sterile Water IV.CONT 100 mls/hr .Q10H [facility] Administration Insulin Aspart 0 unit 10/09/17 17:00 10/11/17 09:25 Novolog Insulin Correctional Sugar Inj SQ Not Given ACHS [facility] Protocol Levothyroxine Sodium 112 mcg 10/09/17 15:00 10/11/17 06:24 Synthroid PO Not Given DAILY@0600 [facility] Levothyroxine Sodium 25 mcg 10/09/17 15:00 10/11/17 06:24 Synthroid PO Not Given DAILY@0600 [facility] Methenamine Mandelate 500 mg 10/09/17 21:00 10/10/17 21:00 Mandelamine PO Not Given HS [facility] Montelukast Sodium 10 mg 10/09/17 21:00 10/10/17 23:14 Singulair PO Not Given HS [facility] Morphine Sulfate 15 mg 10/10/17 07:56 10/10/17 23:24 Msir PO 15 mg Q6H PRN Administration PAIN 6-10 Morphine Sulfate 15 mg 10/10/17 09:00 10/10/17 23:29 Oramorph Sr PO 15 mg Q12HR ARI Administration Octreotide Acetate 50 mcg 10/09/17 21:00 10/10/17 23:24 Sandostatin Inj SQ 50 mcg Q12HR ARI Administration Paroxetine HCl 30 mg 10/10/17 09:00 10/10/17 09:20 Paxil PO 30 mg DAILY ARI Administration Cyclosporine( 0 each 10/09/17 21:00 10/10/17 21:00 Restasis) 1 Drop To EACH EYE Not Given Each Eye Bid BID ARI Prednisone 5 mg 10/09/17 15:00 10/11/17 10:39 Deltasone PO Not Given BID ARI Rifaximin 200 mg 10/10/17 14:00 10/11/17 06:24 Xifaxan PO Not Given Q8HR ARI Vitamin D 2,000 unit 10/10/17 09:00 10/11/17 10:37 Vitamin D3 PO Not Given DAILY ARI Objective Remarks: GENERAL: Elderly female patient, lying in bed, appears to be sleeping. unarousable. SKIN: Warm and dry. Bilateral arms with petechiae rash. HEAD: Normocephalic. EYES: No scleral icterus. No injection or drainage. NECK: Supple, trachea midline. CARDIOVASCULAR: Regular rate and rhythm without murmurs. RESPIRATORY: Anterior breath sounds equal bilaterally. No accessory muscle use. GASTROINTESTINAL: Abdomen soft, non-tender, nondistended. EXTREMITIES: No cyanosis. Bilateral arms with 1+ edema, petechiae/purpura rash.SCD's in place to BLE. MUSCULOSKELETAL: Unable to assess. NEUROLOGICAL: Bilateral pupils 2, PERRLA. Unable to evaluate further. +sedated. PSYCHIATRIC: Unable to evaluate at this time. 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 Her carcinoid syndrome has been stable for many years. Most recently she was noted to have increasing chromogranin A suggestive of worsening carcinoid syndrome. 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 She has had definitive surgery and is on adjuvant hormonal therapy. She was admitted with weakness confusion and hypotension. 1. Urinary culture growing gram-negative rods. On aztreonam, awaiting sensitivity testing. 2. DVT prophylaxis with SQ heparin and SCDs. Her INR is now subtherapeutic after vitamin K. 3. Family has requested that the patient remain on her long-acting morphine as they were afraid that she will go into "DTs". I have explained to them that this could be overly sedating the patient and have instructed the nurses to not give her sedating medications if the patient is sleeping. We will continue to monitor. 4. Noted CXR that showed 1 cm lesion in the right proximal humerus concerning for metastatic disease. 5. Continue IV fluids. 6. Do not give sedated medications if patient is sleeping. - Attending Statement The exam, history, and the medical decision-making described in the above note were completed with the assistance of the mid-level provider. I reviewed and agree with the findings presented. I attest that I had a [id number] encounter with the patient on the same day, and personally performed and documented my assessment and findings in the medical record. 87 yoF with carcinoid tumor. Drowsy, awakens. Neurolgoy consult, currently being treated for infection. Inpatient oncology service will continue to follow
[2017-10-11] MEDS: Ciprofloxacin 400 MG/200 ML 400 MG/200 ML PIGGYBACK IV.SIG SCH (16:26)
--- NOTE | 2017-10-11 17:39 | MG ---
cc: Emanuel Mcpherson MD, PhD TEST NUMBER: [id number] TECHNIQUE: A 17-channel EEG. DESCRIPTION: The background rhythm reveals generalized slowing in the delta frequency of 3-4 Hz. The amplitude is 20-30 microvolts. No lateralizing features are identified, and no epileptiform features are identified. Photic stimulation is done in a stepwise fashion with no driving response. INTERPRETATION: The study is abnormal consistent with a significant metabolic encephalopathy. Emanuel Mcpherson MD, PhD HOLLY/julienne , 05:26 PM , 05:30 PM
--- NOTE | 2017-10-11 18:53 | P.PNNEU ---
Subjective Subjective Comments: pt has been very lethargic during the day Active Medications: Active Medications Al Hydroxide/Mg Hydroxide (Milk Of Magnesia Liq) 30 ml PO Q12H PRN PRN Reason: Mild Constipation Anastrozole (Arimidex) 1 mg PO DAILY [facility] Last Admin: 10/11/17 09:20 Dose: Not Given Atenolol (Tenormin) 50 mg PO DAILY [facility] Last Admin: 10/11/17 09:20 Dose: Not Given Bisacodyl (Dulcolax Supp) 10 mg RECTAL DAILY PRN PRN Reason: SEVERE CONSITIPATION Budesonide/Formoterol Fumarate (Symbicort 160/4.5 Mcg Inh) 2 puff INH DAILY [facility] Last Admin: 10/11/17 10:38 Dose: Not Given Dextrose (D50w Vial) 50 ml IV.PUSH UNSCH PRN PRN Reason: PER HYPOGLYCEMIA PROTOCOL Glucagon (Glucagon Inj) 1 mg OTHER PRN PRN PRN Reason: for Hypoglycemia Protocol Heparin Sodium (Porcine) (Heparin Inj) 5,000 units SQ Q8H [facility] Last Admin: 10/11/17 16:26 Dose: 5,000 units Hydralazine HCl (Apresoline) 25 mg PO TID [facility] Last Admin: 10/11/17 12:30 Dose: Not Given Sodium Bicarbonate 75 meq/ (Sterile Water) 1,000 mls @ 100 mls/hr IV.CONT .Q10H [facility] Last Admin: 10/11/17 18:33 Dose: 100 mls/hr Ciprofloxacin/Dextrose (Cipro 400 Mg/200 Ml Inj) 400 mg in 200 mls @ 200 mls/ hr IV.SIG Q12H [facility] Last Admin: 10/11/17 16:26 Dose: 200 mls/hr Insulin Aspart (Novolog Insulin Correctional Sugar Inj) 0 unit SQ ACHS [facility]; Protocol Last Admin: 10/11/17 16:59 Dose: Not Given Lactulose (Lactulose Liq) 30 ml PO DAILY PRN PRN Reason: SEVERE CONSITIPATION Levothyroxine Sodium (Synthroid) 112 mcg PO DAILY@0600 [facility] Last Admin: 10/11/17 06:24 Dose: Not Given Levothyroxine Sodium (Synthroid) 25 mcg PO DAILY@0600 [facility] Last Admin: 10/11/17 06:24 Dose: Not Given Miscellaneous (Pill Splitter) 1 each OTHER UNSCH [facility] Montelukast Sodium (Singulair) 10 mg PO [facility] Last Admin: 10/10/17 23:14 Dose: Not Given Morphine Sulfate (Msir) 15 mg PO Q6H PRN PRN Reason: PAIN 6-10 Last Admin: 10/10/17 23:24 Dose: 15 mg Morphine Sulfate (Oramorph Sr) 15 mg PO Q12HR [facility] Last Admin: 10/11/17 09:20 Dose: Not Given Octreotide Acetate (Sandostatin Inj) 50 mcg SQ Q12HR [facility] Last Admin: 10/11/17 09:20 Dose: Not Given Paroxetine HCl (Paxil) 30 mg PO DAILY [facility] Last Admin: 10/11/17 09:20 Dose: Not Given Cyclosporine( Restasis) 1 Drop To Each Eye Bid 0 each EACH EYE BID [facility] Last Admin: 10/11/17 09:20 Dose: Not Given Patient Own Medication( Methenamine 500 Mg) 0 each PO [facility] Prednisone (Deltasone) 5 mg PO BID [facility] Last Admin: 10/11/17 10:39 Dose: Not Given Rifaximin (Xifaxan) 200 mg PO Q8HR [facility] Last Admin: 10/11/17 14:00 Dose: Not Given Sennosides (Senokot) 17.2 mg PO Q12H PRN PRN Reason: Moderate Constipation Sodium Chloride (Ns Flush) 2 ml IV.FLUSH PRN PRN PRN Reason: FLUSH AFTER USING IV ACCESS Vitamin D (Vitamin D3) 2,000 unit PO DAILY [facility] Last Admin: 10/11/17 10:37 Dose: Not Given Allergies/Adverse Reactions: Allergies Allergy/AdvReac Type Severity Reaction Status Date / Time amlodipine Allergy Severe Verified 07/15/17 14:01 atorvastatin Allergy Severe Verified 07/15/17 14:01 codeine Allergy Severe nausea Verified 07/15/17 14:01 dimenhydrinate Allergy Severe Confusion Verified 07/15/17 14:01 simvastatin Allergy Severe Verified 07/15/17 14:01 zolpidem Allergy Severe Confusion Verified 07/15/17 14:01 cephalexin Allergy Intermediate Rash Verified 07/15/17 14:01 Physical Exam Vital signs: Vital Signs 10/10/17 19:48 10/10/17 20:02 10/10/17 23:59 Temperature 98.2 F Pulse Rate 82 85 Respiratory Rate 18 18 Blood Pressure 127/65 Pulse Oximetry 97 10/11/17 00:00 10/11/17 00:09 10/11/17 04:00 Temperature 97.7 F Pulse Rate 90 77 Respiratory Rate 20 18 Blood Pressure 147/78 H Pulse Oximetry 100 10/11/17 04:13 10/11/17 04:45 10/11/17 09:20 Temperature 98.4 F Pulse Rate 84 83 Respiratory Rate 20 20 Blood Pressure 144/81 H Pulse Oximetry 98 10/11/17 11:24 Temperature 98 F Pulse Rate 67 Respiratory Rate 18 Blood Pressure 112/70 Pulse Oximetry 96 Intake & Output 10/10/17 10/11/17 10/11/17 18:59 06:59 18:59 Intake Total 460 / 460 1100 / 1100 1000 / 1000 Output Total 650 / 650 900 / 900 Balance -190 / -190 200 / 200 1000 / 1000 Weight 69.7 kg Intake: IV 100 / 100 1100 / 1100 1000 / 1000 Sodium Bicarbonate 8.4% Inj 75 1000 / 1000 1000 / 1000 MEQ In Sterile Water for Inj 925 ML @ 100 mls/hr IV.CONT . Q10H [facility] Rx#:[id number] Azactam Inj 1,000 MG In NS Inj 100 / 100 100 / 100 100 ML @ 200 mls/hr IV.SIG Q12H [facility] Rx#:[id number] Oral 360 / 360 Output: Urine Amount (Stoma) 650 / 650 900 / 900 Pre-Hospital: Continent 650 / 650 900 / 900 Urostomy Other: Date of Last Bowel Movement 10/08/17 10/08/17 10/10/17 Objective Radiology Results: MRI brain--chronic changes. No evidence for acute change or cva Laboratory Results - last 24 hr 10/10/17 10/10/17 10/11/17 21:51 22:49 05:17 WBC 9.1 RBC 3.74 L Hgb 11.0 L Hct 34.4 L MCV 91.9 MCH 29.6 MCHC 32.1 RDW 17.7 H Plt Count 231 MPV 8.8 Prelim Diff (Auto) Slide review pending Neut % (Auto) 75.1 H Lymph % (Auto) 14.6 Emery % (Auto) 9.3 H Eos % (Auto) 0.4 Baso % (Auto) 0.6 Neut # (Auto) 6.8 Lymph # (Auto) 1.3 Emery # (Auto) 0.8 Eos # (Auto) 0.0 Baso # (Auto) 0.1 WBC Differential Manual diff final Seg Neuts % (Manual) 84 H Band Neuts % (Manual) 1 Lymphocytes % (Manual) 5 L Monocytes % (Manual) 5 Metamyelocytes % (Man) 2 H Myelocytes % (Man) 2 H Promyelocytes % (Man) 1 H Abs Neuts (Manual) 8.2 H Differential Comment . Platelet Estimate Normal Platelet Morphology Normal Ovalocytes 2+ H Keratocytes Occ H PT INR Sodium 145 Potassium 4.6 D Chloride 117 H Carbon Dioxide 17.7 L Anion Gap 10 BUN 65 H Creatinine 1.27 H Estimated GFR 40 L POC Glucose 141 H Random Glucose 142 H Calcium 8.9 Total Bilirubin 1.5 H AST 157 H ALT 237 H Alkaline Phosphatase 513 H Total Protein 5.8 L Albumin 2.5 L 10/11/17 10/11/17 10/11/17 05:17 05:17 09:33 WBC RBC Hgb Hct MCV MCH MCHC RDW Plt Count MPV Prelim Diff (Auto) Neut % (Auto) Lymph % (Auto) Emery % (Auto) Eos % (Auto) Baso % (Auto) Neut # (Auto) Lymph # (Auto) Emery # (Auto) Eos # (Auto) Baso # (Auto) WBC Differential Seg Neuts % (Manual) Band Neuts % (Manual) Lymphocytes % (Manual) Monocytes % (Manual) Metamyelocytes % (Man) Myelocytes % (Man) Promyelocytes % (Man) Abs Neuts (Manual) Differential Comment Platelet Estimate Platelet Morphology Ovalocytes Keratocytes PT 13.0 H INR 1.3 Sodium 143 Potassium 4.4 Chloride 115 H Carbon Dioxide 15.5 L Anion Gap 13 BUN 67 H Creatinine 1.12 H Estimated GFR 46 L POC Glucose 146 H Random Glucose 150 H Calcium 8.5 Total Bilirubin 2.2 H AST 160 H ALT 232 H Alkaline Phosphatase 508 H Total Protein 5.7 L Albumin 2.5 L 10/11/17 10/11/17 13:02 16:41 WBC RBC Hgb Hct MCV MCH MCHC RDW Plt Count MPV Prelim Diff (Auto) Neut % (Auto) Lymph % (Auto) Emery % (Auto) Eos % (Auto) Baso % (Auto) Neut # (Auto) Lymph # (Auto) Emery # (Auto) Eos # (Auto) Baso # (Auto) WBC Differential Seg Neuts % (Manual) Band Neuts % (Manual) Lymphocytes % (Manual) Monocytes % (Manual) Metamyelocytes % (Man) Myelocytes % (Man) Promyelocytes % (Man) Abs Neuts (Manual) Differential Comment Platelet Estimate Platelet Morphology Ovalocytes Keratocytes PT INR Sodium Potassium Chloride Carbon Dioxide Anion Gap BUN Creatinine Estimated GFR POC Glucose 143 H 156 H Random Glucose Calcium Total Bilirubin AST ALT Alkaline Phosphatase Total Protein Albumin Microbiology 10/09/17 14:05 Urine Culture - Final Clean Catch Urine Citrobacter freundii Diagnostic Tests: EEG--generalized slowing Review/Management - Diagnosis (1) Toxic metabolic encephalopathy Code(s): G92 - Toxic encephalopathy Status: Acute Current Visit: Yes - Review/Management Plan: consider lactulose for elevated ammonia
[2017-10-11] MEDS ORDERED: METHENAMINE PO SCH (21:00)
[2017-10-11] MEDS: Montelukast 10 MG Tablet PO SCH (21:53)
[2017-10-12] MEDS: Insulin NovoLOG Aspart Correctional Sugar Inj SQ SCH ×5 (02:25→22:19)
[2017-10-12] MEDS: Ciprofloxacin 400 MG/200 ML 400 MG/200 ML PIGGYBACK IV.SIG SCH ×2 (05:04→17:47)
[2017-10-12] MEDS: WATER FOR INJ IV.CONT SCH ×3 (05:04→19:00)
[2017-10-12] MEDS: SODIUM BICARBONATE IV.CONT SCH ×3 (05:04→19:00)
[2017-10-12] MEDS: STERILE IV.CONT SCH ×3 (05:04→19:00)
[2017-10-12] MEDS: Levothyroxine 112 MCG Tablet PO SCH (06:54)
[2017-10-12 07:18] LABS: Baso % (Auto) 0.5 % (0.0-2.0); Eos # (Auto) 0.1 th/mm3 (0.0-0.4); Eos % (Auto) 0.8 % (0.0-4.0); Hematocrit 31.9 % (35.0-46.0); Hemoglobin 10.4 gm/dL (11.6-15.3); Lymph # (Auto) 1.5 th/mm3 (1.0-4.8); Lymph % (Auto) 18.8 % (9.0-44.0); Mean Corpuscular HGB Conc 32.5 % (32.0-36.0); Mean Corpuscular Hemoglobin 29.5 pg (27.0-34.0); Mean Corpuscular Volume 90.7 fL (80.0-100.0); Mean Platelet Volume 8.2 fL (7.0-11.0); Mono # (Auto) 0.9 th/mm3 (0.0-0.9); Neut # (Auto) 5.4 th/mm3 (1.8-7.7); Neut % (Auto) 68.9 % (16.0-70.0); Platelet Count 165 th/mm3 (150-450); Red Blood Count 3.51 mil/mm3 (4.00-5.30); Red Cell Distribution Width 17.3 % (11.6-17.2); White Blood Count 7.9 th/mm3 (4.0-11.0)
[2017-10-12 07:22] LABS: INR 1.8 Ratio; Prothrombin Time 18.2 sec (9.8-11.6)
[2017-10-12 07:47] LABS: Alanine Aminotransferase 204 U/L (10-53); Albumin 2.1 g/dL (3.4-5.0); Alkaline Phosphatase 460 U/L (45-117); Anion Gap 9 meq/L (5-15); Aspartate Aminotransferase 146 U/L (15-37); Blood Urea Nitrogen 46 mg/dL (7-18); Calcium 7.7 mg/dL (8.5-10.1); Carbon Dioxide 21.6 meq/L (21.0-32.0); Chloride 111 meq/L (98-107); Glomerular Filtration Rate 55 mL/min (>89); Glucose,Random 166 mg/dL (74-106); Potassium 3.5 meq/L (3.5-5.1); Sodium 142 meq/L (136-145); Total Protein 5.2 g/dL (6.4-8.2)
[2017-10-12] MEDS: Morphine Sulfate 15 MG SR Tablet PO SCH ×2 (08:58→20:52)
[2017-10-12] MEDS: CYCLOSPORINE EACH EYE SCH ×2 (08:58→21:04)
[2017-10-12] MEDS: Heparin - SQ 10,000 UNITS/ML Vial SQ SCH ×3 (09:28→22:19)
[2017-10-12] MEDS: hydrALAZINE 25 MG Tablet PO SCH ×3 (09:29→17:37)
[2017-10-12] MEDS: Octreotide Inj 50 MCG/ML Vial SQ SCH ×2 (09:30→21:02)
[2017-10-12] MEDS: Budesonide-Formoterol 160/4.5 MCG 6 GM Inhaler INH SCH (09:31)
[2017-10-12 10:04] LABS: Eosinophils 2 % (0-4); Lymphocytes 21 % (9-44); Metamyelocytes 2 % (0-1); Monocytes 9 % (0-8); Platelet Estimate Normal (Normal); Platelet Morphology Normal (Normal)
[2017-10-12 10:05] LABS: Ovalocytes 1+
--- NOTE | 2017-10-12 10:20 | P.PNIM ---
Subjective Interval history: Patient doing a little better today. Briefly woke up on my evaluation. Have been talking per son and RN. Not eating much. Physical Exam Vital signs: Vital Signs 10/11/17 11:24 10/11/17 16:35 10/11/17 20:00 Temperature 98 F 98.4 F 98.4 F Pulse Rate 67 69 90 Respiratory Rate 18 Blood Pressure 112/70 114/66 137/70 Pulse Oximetry 96 96 97 10/12/17 00:00 10/12/17 04:00 10/12/17 08:00 Temperature 97.7 F 98.6 F 98.1 F Pulse Rate 85 102 H 95 H Respiratory Rate 18 Blood Pressure 138/75 139/76 121/64 Pulse Oximetry 96 98 98 Intake & Output 10/11/17 10/12/17 10/12/17 18:59 06:59 18:59 Intake Total 1200 / 1200 1200 / 1200 Output Total 600 / 600 750 / 750 Balance 600 / 600 450 / 450 Weight 66.5 kg Intake: IV 1200 / 1200 1200 / 1200 Sodium Bicarbonate 8.4% Inj 75 1000 / 1000 1000 / 1000 MEQ In Sterile Water for Inj 925 ML @ 100 mls/hr IV.CONT . Q10H [facility] Rx#:[id number] Cipro 400 MG/200 ML Inj 400 mg 200 / 200 200 / 200 In 200 ml @ 200 mls/hr IV.SIG Q12H [facility] Rx#:[id number] Output: Urine 600 / 600 Urine Amount (Stoma) 750 / 750 Pre-Hospital: Continent 750 / 750 Urostomy Other: Date of Last Bowel Movement 10/10/17 10/10/17 Narrative: GENERAL: Woke up briefly but quickly falls asleep. CARDIOVASCULAR: Regular rate and rhythm without murmurs, gallops, or rubs. RESPIRATORY: Breath sounds equal bilaterally. No accessory muscle use. GASTROINTESTINAL: Abdomen soft, non-tender, nondistended. MUSCULOSKELETAL: No cyanosis,. Trace edema Results - Labs CBC & Chem 7: 10/12/17 07:03 10/12/17 07:03 Laboratory Results - last 24 hr 10/11/17 10/11/17 10/11/17 13:02 16:41 21:44 WBC RBC Hgb Hct MCV MCH MCHC RDW Plt Count MPV Prelim Diff (Auto) Neut % (Auto) Lymph % (Auto) Alexander % (Auto) Eos % (Auto) Baso % (Auto) Neut # (Auto) Lymph # (Auto) Alexander # (Auto) Eos # (Auto) Baso # (Auto) WBC Differential Seg Neuts % (Manual) Lymphocytes % (Manual) Monocytes % (Manual) Eosinophils % (Manual) Basophils % (Manual) Metamyelocytes % (Man) Abs Neuts (Manual) Differential Comment Platelet Estimate Platelet Morphology Ovalocytes Keratocytes PT INR Sodium Potassium Chloride Carbon Dioxide Anion Gap BUN Creatinine Estimated GFR POC Glucose 143 H 156 H 148 H Random Glucose Calcium Total Bilirubin AST ALT Alkaline Phosphatase Total Protein Albumin 10/12/17 10/12/17 10/12/17 07:03 07:03 07:03 WBC 7.9 RBC 3.51 L Hgb 10.4 L Hct 31.9 L MCV 90.7 MCH 29.5 MCHC 32.5 RDW 17.3 H Plt Count 165 MPV 8.2 Prelim Diff (Auto) Slide review pending Neut % (Auto) 68.9 Lymph % (Auto) 18.8 Alexander % (Auto) 11.0 H Eos % (Auto) 0.8 Baso % (Auto) 0.5 Neut # (Auto) 5.4 Lymph # (Auto) 1.5 Alexander # (Auto) 0.9 Eos # (Auto) 0.1 Baso # (Auto) 0.0 WBC Differential Manual diff final Seg Neuts % (Manual) 65 Lymphocytes % (Manual) 21 Monocytes % (Manual) 9 H Eosinophils % (Manual) 2 Basophils % (Manual) 1 Metamyelocytes % (Man) 2 H Abs Neuts (Manual) 5.3 Differential Comment . Platelet Estimate Normal Platelet Morphology Normal Ovalocytes 1+ H Keratocytes Occ H PT 18.2 H INR 1.8 Sodium 142 Potassium 3.5 D Chloride 111 H Carbon Dioxide 21.6 Anion Gap 9 BUN 46 H Creatinine 0.96 Estimated GFR 55 L POC Glucose Random Glucose 166 H Calcium 7.7 L D Total Bilirubin 1.6 H AST 146 H ALT 204 H Alkaline Phosphatase 460 H Total Protein 5.2 L Albumin 2.1 L 10/12/17 09:04 WBC RBC Hgb Hct MCV MCH MCHC RDW Plt Count MPV Prelim Diff (Auto) Neut % (Auto) Lymph % (Auto) Alexander % (Auto) Eos % (Auto) Baso % (Auto) Neut # (Auto) Lymph # (Auto) Alexander # (Auto) Eos # (Auto) Baso # (Auto) WBC Differential Seg Neuts % (Manual) Lymphocytes % (Manual) Monocytes % (Manual) Eosinophils % (Manual) Basophils % (Manual) Metamyelocytes % (Man) Abs Neuts (Manual) Differential Comment Platelet Estimate Platelet Morphology Ovalocytes Keratocytes PT INR Sodium Potassium Chloride Carbon Dioxide Anion Gap BUN Creatinine Estimated GFR POC Glucose 186 H Random Glucose Calcium Total Bilirubin AST ALT Alkaline Phosphatase Total Protein Albumin Microbiology 10/09/17 14:05 Clean Catch Urine Urine Culture - Final Citrobacter freundii Assessment and Plan - Assessment (1) Toxic metabolic encephalopathy Code(s): G92 - Toxic encephalopathy Status: Acute (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 UTI may be contributing. Recommend minimizing sedating medications. Discussed with family at length. Discussed with RN. Hold long acting Morphine for now Appreciate Neurology input. MRI neg. EEG pending. Agree with neurology. Add lactulose in addition to rifaximin to help with hyperammonemia. Acute UTI: Urine grew Citrobacter. pansensitive. - Switched from Aztreonam to Cipro Hyperammonemia Ammonia level 65 Liver ultrasound noted with no definite acute liver findings Continue rifaximin. Add lactulose. Transaminitis Ultrasound noted Hold Statin Monitor LFTs Diarrhea: Resolved. this may be due to carcinoid tumor Treatment as per hematology with octreotide equivalent. Appreciate assistance. History of carcinoid tumor Continue octreotide subcu as per oncology. Appreciate assistance Acute renal injury Prerenal, secondary to dehydration Continue with gentle IV fluid hydration and monitor BUN and creatinine Creatinine improved to baseline. Continue to monitor. Diabetes type 2 Hold oral hypoglycemic agent along with basal insulin until patient's appetite increased along with improvement of renal function Start insulin sliding scale with fingerstick blood glucose monitoring Hypertension Blood pressure acceptable. Continue to monitor. History of atrial fibrillation Currently in normal sinus rhythm Stable. Continue Coumadin and continue atenolol Pharmacy consult for INR management. History of breast cancer Resume Arimidex GI prophylaxis: Stool softener PRN constipation. DVT PPx: Heparin subcu Discharge Planning: Need improvement in mental status. May need SNF. (5) Diabetes Qualifiers: Diabetes mellitus type: type 2 Diabetes mellitus [employer] insulin use: with [employer] use Diabetes mellitus complication status: without complication Qualified Code(s): E11.9 - Type 2 diabetes mellitus without complications; Z79.4 - [facility] (current) use of insulin
[2017-10-12] MEDS: Morphine Sulfate 15 MG IR Tablet PO PRN ×2 (13:24→19:29)
[2017-10-12] MEDS: Anastrozole 1 MG Tablet PO SCH (13:35)
[2017-10-12] MEDS: predniSONE 5 MG Tablet PO SCH ×2 (13:36→20:52)
[2017-10-12] MEDS ORDERED: Warfarin Consult Pharmacy OTHER SCH (13:52)
[2017-10-12] MEDS: Atenolol 50 MG Tablet PO SCH (17:37)
[2017-10-12] MEDS: Montelukast 10 MG Tablet PO SCH (20:52)
[2017-10-12] MEDS: Benzonatate 100 MG Capsule PO PRN (20:53)
[2017-10-13] MEDS: STERILE IV.CONT SCH (02:21)
[2017-10-13] MEDS: WATER FOR INJ IV.CONT SCH (02:21)
[2017-10-13] MEDS: SODIUM BICARBONATE IV.CONT SCH (02:21)
[2017-10-13] MEDS: Ciprofloxacin 400 MG/200 ML 400 MG/200 ML PIGGYBACK IV.SIG SCH ×2 (04:36→17:18)
[2017-10-13] MEDS: Levothyroxine 112 MCG Tablet PO SCH (06:44)
[2017-10-13] MEDS: predniSONE 5 MG Tablet PO SCH ×2 (08:31→21:23)
[2017-10-13] MEDS: hydrALAZINE 25 MG Tablet PO SCH ×3 (08:31→19:33)
[2017-10-13] MEDS: Atenolol 50 MG Tablet PO SCH (08:31)
[2017-10-13] MEDS: Anastrozole 1 MG Tablet PO SCH (08:31)
[2017-10-13] MEDS: Benzonatate 100 MG Capsule PO PRN (08:31)
[2017-10-13] MEDS: Insulin NovoLOG Aspart Correctional Sugar Inj SQ SCH ×4 (08:35→21:32)
[2017-10-13] MEDS: Heparin - SQ 10,000 UNITS/ML Vial SQ SCH (08:35)
[2017-10-13] MEDS: Morphine Sulfate 15 MG SR Tablet PO SCH ×2 (08:50→21:23)
[2017-10-13] MEDS: Budesonide-Formoterol 160/4.5 MCG 6 GM Inhaler INH SCH (08:51)
[2017-10-13] MEDS: CYCLOSPORINE EACH EYE SCH ×2 (08:51→21:26)
[2017-10-13] MEDS ORDERED: Sodium Chloride 0.45 % Inj 1,000 ML IV.CONT SCH (09:18)
--- NOTE | 2017-10-13 09:18 | P.PNIM ---
Subjective Interval history: Patient is better this morning. Sitting in the chair today. She knows she is in the Hospital. Still sleepy but easily wake up. Physical Exam Vital signs: Vital Signs 10/12/17 12:00 10/12/17 17:00 10/12/17 19:47 Temperature 99.8 F H 98.8 F 97.9 F Pulse Rate 90 91 H 89 Respiratory Rate 18 16 19 Blood Pressure 149/90 H 152/94 H 109/69 Pulse Oximetry 97 98 99 10/12/17 20:10 10/13/17 00:00 10/13/17 00:09 Temperature 98.5 F Pulse Rate 93 H 89 81 Respiratory Rate 16 Blood Pressure 125/77 Pulse Oximetry 97 10/13/17 04:49 10/13/17 07:37 10/13/17 08:00 Temperature 98.1 F 98.1 F Pulse Rate 69 70 76 Respiratory Rate 18 20 Blood Pressure 150/87 H 157/87 H Pulse Oximetry 96 97 Intake & Output 10/12/17 10/13/17 10/13/17 18:59 06:59 18:59 Intake Total 1860 / 1860 Output Total 1700 / 1700 Balance 160 / 160 Weight 68.8 kg Intake: IV 1200 / 1200 Sodium Bicarbonate 8.4% Inj 75 1000 / 1000 MEQ In Sterile Water for Inj 925 ML @ 100 mls/hr IV.CONT . Q10H [facility] Rx#:[id number] Cipro 400 MG/200 ML Inj 400 mg 200 / 200 In 200 ml @ 200 mls/hr IV.SIG Q12H [facility] Rx#:[id number] Oral 660 / 660 Output: Urine 500 / 500 Urine Amount (Stoma) 1200 / 1200 Pre-Hospital: Continent 1200 / 1200 Urostomy Other: Date of Last Bowel Movement 10/10/17 # Bowel Movements 2 Narrative: GENERAL: More awake today CARDIOVASCULAR: Regular rate and rhythm without murmurs, gallops, or rubs. RESPIRATORY: Breath sounds equal bilaterally. No accessory muscle use. GASTROINTESTINAL: Abdomen soft, non-tender, nondistended. MUSCULOSKELETAL: No cyanosis,. Trace edema Results - Labs CBC & Chem 7: 10/13/17 09:30 10/13/17 09:30 Laboratory Results - last 24 hr 10/12/17 10/12/17 10/12/17 07:03 11:31 13:05 WBC Differential Manual diff final Seg Neuts % (Manual) 65 Lymphocytes % (Manual) 21 Monocytes % (Manual) 9 H Eosinophils % (Manual) 2 Basophils % (Manual) 1 Metamyelocytes % (Man) 2 H Abs Neuts (Manual) 5.3 Platelet Estimate Normal Platelet Morphology Normal Ovalocytes 1+ H Keratocytes Occ H POC Glucose 167 H Ammonia 91 H 10/12/17 10/12/17 10/13/17 16:57 22:12 07:47 WBC Differential Seg Neuts % (Manual) Lymphocytes % (Manual) Monocytes % (Manual) Eosinophils % (Manual) Basophils % (Manual) Metamyelocytes % (Man) Abs Neuts (Manual) Platelet Estimate Platelet Morphology Ovalocytes Keratocytes POC Glucose 156 H 170 H 158 H Ammonia Assessment and Plan - Assessment (1) Toxic metabolic encephalopathy Code(s): G92 - Toxic encephalopathy Status: Acute (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 UTI may be contributing. Recommend minimizing sedating medications. Discussed with family at length. Discussed with RN. Hold long acting Morphine for now Appreciate Neurology input. MRI neg. EEG pending. Agree with neurology. Improved after adding lactulose. Continue Lactulose and rifaximin to help with hyperammonemia. Acute UTI: Urine grew Citrobacter. pansensitive. - Switched from Aztreonam to Cipro Hyperammonemia Liver ultrasound noted with no definite acute liver findings Continue rifaximin and lactulose. Improving Transaminitis Ultrasound noted Hold Statin Monitor LFTs Diarrhea: Resolved. this may be due to carcinoid tumor Treatment as per hematology with octreotide equivalent. Appreciate assistance. History of carcinoid tumor Continue octreotide subcu as per oncology. Appreciate assistance Acute renal injury Prerenal, secondary to dehydration Continue with gentle IV fluid hydration and monitor BUN and creatinine Creatinine improved to baseline. Continue to monitor. Diabetes type 2 Hold oral hypoglycemic agent along with basal insulin until patient's appetite increased along with improvement of renal function Start insulin sliding scale with fingerstick blood glucose monitoring Hypertension Blood pressure acceptable. Continue to monitor. History of atrial fibrillation Currently in normal sinus rhythm Stable. Continue Coumadin and continue atenolol Pharmacy following for INR management. History of breast cancer Resume Arimidex GI prophylaxis: Stool softener PRN constipation. DVT PPx: On Coumadin. INR therapeutic Discharge Planning: Need improvement in mental status. Will likely need SNF. 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
--- NOTE | 2017-10-13 09:49 | P.PNONC ---
Subjective Interval history: Afebrile Patient sitting up in chair at bedside She remains lethargic; she tells me she is in the hospital but is unsure of the name. I asked her if she remembers me and she does not, however her face lights up when I tell her that I work with Dr. Meza. Currently no visitors present Objective Vital Signs/Intake & Output: Vital Signs 10/12/17 12:00 10/12/17 17:00 10/12/17 19:47 Temperature 99.8 F H 98.8 F 97.9 F Pulse Rate 90 91 H 89 Respiratory Rate 18 16 19 Blood Pressure 149/90 H 152/94 H 109/69 Pulse Oximetry 97 98 99 10/12/17 20:10 10/13/17 00:00 10/13/17 00:09 Temperature 98.5 F Pulse Rate 93 H 89 81 Respiratory Rate 16 Blood Pressure 125/77 Pulse Oximetry 97 10/13/17 04:49 10/13/17 07:37 10/13/17 08:00 Temperature 98.1 F 98.1 F Pulse Rate 69 70 76 Respiratory Rate 18 20 Blood Pressure 150/87 H 157/87 H Pulse Oximetry 96 97 Intake & Output 10/12/17 10/13/17 10/13/17 18:59 06:59 18:59 Intake Total 1860 / 1860 240 / 240 Output Total 1700 / 1700 Balance 160 / 160 240 / 240 Weight 151 lb 10.848 oz Intake: IV 1200 / 1200 Sodium Bicarbonate 8.4% Inj 75 1000 / 1000 MEQ In Sterile Water for Inj 925 ML @ 100 mls/hr IV.CONT . Q10H [facility] Rx#:[id number] Cipro 400 MG/200 ML Inj 400 mg 200 / 200 In 200 ml @ 200 mls/hr IV.SIG Q12H [facility] Rx#:[id number] Oral 660 / 660 240 / 240 Output: Urine 500 / 500 Urine Amount (Stoma) 1200 / 1200 Pre-Hospital: Continent 1200 / 1200 Urostomy Other: Date of Last Bowel Movement 10/10/17 # Bowel Movements 2 Result Diagrams: 10/13/17 09:30 10/13/17 09:30 Laboratory Results: Laboratory Results - last 24 hr 10/12/17 10/12/17 10/12/17 07:03 11:31 13:05 WBC Differential Manual diff final Seg Neuts % (Manual) 65 Lymphocytes % (Manual) 21 Monocytes % (Manual) 9 H Eosinophils % (Manual) 2 Basophils % (Manual) 1 Metamyelocytes % (Man) 2 H Abs Neuts (Manual) 5.3 Platelet Estimate Normal Platelet Morphology Normal Ovalocytes 1+ H Keratocytes Occ H POC Glucose 167 H Ammonia 91 H 10/12/17 10/12/17 10/13/17 16:57 22:12 07:47 WBC Differential Seg Neuts % (Manual) Lymphocytes % (Manual) Monocytes % (Manual) Eosinophils % (Manual) Basophils % (Manual) Metamyelocytes % (Man) Abs Neuts (Manual) Platelet Estimate Platelet Morphology Ovalocytes Keratocytes POC Glucose 156 H 170 H 158 H Ammonia Culture Results: Microbiology 10/09/17 14:05 Urine Culture - Final Clean Catch Urine Citrobacter freundii Medications: Active Medications Generic Name Dose Route Start Last Admin Trade Name Freq PRN Reason Stop Dose Admin Anastrozole 1 mg 10/10/17 09:00 10/13/17 08:31 Arimidex PO 1 mg DAILY [facility] Administration Atenolol 50 mg 10/10/17 09:00 10/13/17 08:31 Tenormin PO 50 mg DAILY [facility] Administration Benzonatate 100 mg 10/12/17 20:20 10/13/17 08:31 Tessalon Perles PO 100 mg Q8H PRN Administration COUGH Budesonide/Formoterol Fumarate 2 puff 10/09/17 15:00 10/13/17 08:51 Symbicort 160/4.5 Mcg Inh INH 2 puff DAILY [facility] Administration Heparin Sodium (Porcine) 5,000 units 10/09/17 15:00 10/13/17 08:35 Heparin Inj SQ 5,000 units Q8H [facility] Administration Hydralazine HCl 25 mg 10/09/17 18:00 10/13/17 08:31 Apresoline PO 25 mg TID [facility] Administration Ciprofloxacin/Dextrose 400 mg in 200 mls @ 200 mls/hr 10/11/17 15:00 04:36 Cipro 400 Mg/200 Ml Inj IV.SIG 100 mls/hr Q12H [facility] Administration Insulin Aspart 0 unit 10/09/17 17:00 10/13/17 08:35 Novolog Insulin Correctional Sugar Inj SQ 1 unit ACHS [facility] Administration Protocol Levothyroxine Sodium 112 mcg 08/16/18 15:00 10/13/17 06:44 Synthroid PO Not Given DAILY@0600 [facility] Levothyroxine Sodium 25 mcg 10/09/17 15:00 10/13/17 06:44 Synthroid PO Not Given DAILY@0600 [facility] Montelukast Sodium 10 mg 10/09/17 21:00 10/12/17 20:52 Singulair PO 10 mg HS [facility] Administration Morphine Sulfate 15 mg 10/10/17 07:56 10/12/17 19:29 Msir PO 15 mg Q6H PRN Administration PAIN 6-10 Morphine Sulfate 15 mg 10/10/17 09:00 10/13/17 08:50 Oramorph Sr PO 15 mg Q12HR [facility] Administration Octreotide Acetate 50 mcg 10/09/17 21:00 10/12/17 21:02 Sandostatin Inj SQ Not Given Q12HR [facility] Paroxetine HCl 30 mg 10/10/17 09:00 10/13/17 08:31 Paxil PO 30 mg DAILY [facility] Administration Cyclosporine( 0 each 10/09/17 21:00 10/13/17 08:51 Restasis) 1 Drop To EACH EYE Not Given Each Eye Bid BID [facility] Prednisone 5 mg 10/09/17 15:00 10/13/17 08:31 Deltasone PO 5 mg BID [facility] Administration Rifaximin 200 mg 10/10/17 14:00 10/13/17 06:44 Xifaxan PO Not Given Q8HR [facility] Vitamin D 2,000 unit 10/10/17 09:00 10/13/17 08:31 Vitamin D3 PO 2,000 unit DAILY [facility] Administration Warfarin Sodium 2 mg 10/12/17 16:00 10/12/17 17:36 Coumadin PO 2 mg DAILY@1600 [facility] Administration Objective Remarks: GENERAL: Chronically ill-appearing elderly female sitting up in stretcher chair at bedside. She is lethargic but awakens easily to verbal stimuli. SKIN: Warm and dry. HEAD: Normocephalic. EYES: No scleral icterus. No injection or drainage. NECK: Supple, trachea midline. No JVD or lymphadenopathy. CARDIOVASCULAR: Irregular rhythm RESPIRATORY: Clear anteriorly. GASTROINTESTINAL: Abdomen soft, non-tender, nondistended. EXTREMITIES: No cyanosis, or edema. MUSCULOSKELETAL: Generalized weakness NEUROLOGICAL: No obvious focal deficit. Awake, alert, and oriented x3. PSYCHIATRIC: Lethargic but awakens easily to verbal stimuli. Confused. Follows commands. 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 Her carcinoid syndrome has been stable for many years. Most recently she was noted to have increasing chromogranin A suggestive of worsening carcinoid syndrome. 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 She has had definitive surgery and is on adjuvant hormonal therapy. She was admitted with weakness confusion and hypotension. 1. Patient remains on Cipro for UTI 2. INR pending this morning. Patient remains on subcu heparin until therapeutic with INR. 3. Patient's lethargy/confusion seems to be somewhat improved. Her ammonia level was elevated and she has received lactulose. MRI brain negative 4. She continues with Sandostatin for carcinoid tumor. Her diarrhea has subsided. - Attending Statement The exam, history, and the medical decision-making described in the above note were completed with the assistance of the mid-level provider. I reviewed and agree with the findings presented. I attest that I had a [id number] encounter with the patient on the same day, and personally performed and documented my assessment and findings in the medical record. Patient seen and examined. Still very weak. She is arousable. She recognizes her family members and myself. She falls back to sleep readily. Noted that she was out of bed in a chair today. She is improved from Friday but not yet her baseline. Patient's family observes an increased amount of cough and sputum production. Dr. Calabrese is consulted. Patient is having loose stools because of the lactulose. Ammonia level is monitored. They have requested a multivitamin bag. We will need to monitor her PT/INR. Her p.o. intake is poor. There is a generalized decline in her performance status. Renal function is stable. Hemoglobin is stable. We will continue to monitor her recovery and improvement with current support.
[2017-10-13 10:08] LABS: Carbon Dioxide 22.2 meq/L (21.0-32.0); Mean Corpuscular HGB Conc 29.1 % (32.0-36.0); Mean Corpuscular Hemoglobin 28.7 pg (27.0-34.0); Mean Corpuscular Volume 98.8 fL (80.0-100.0); Mean Platelet Volume 8.4 fL (7.0-11.0); Platelet Count 175 th/mm3 (150-450); Potassium 3.6 meq/L (3.5-5.1); Red Blood Count 3.84 mil/mm3 (4.00-5.30); Red Cell Distribution Width 18.9 % (11.6-17.2); White Blood Count 8.7 th/mm3 (4.0-11.0)
[2017-10-13] MEDS: Morphine Sulfate 15 MG IR Tablet PO PRN (11:06)
[2017-10-13 11:51] LABS: INR 2.2 Ratio
[2017-10-13] MEDS: Octreotide Inj 50 MCG/ML Vial SQ SCH ×2 (14:19→21:21)
[2017-10-13] MEDS ORDERED: Multivitamin Inj 10 ML, Thiamine Inj 100 MG, Folic Acid Inj 1 MG in Dextrose 5%/NaCl 0.... IV.SIG ONE (18:58)
[2017-10-13] MEDS: Montelukast 10 MG Tablet PO SCH (21:24)
[2017-10-14] MEDS: Ciprofloxacin 400 MG/200 ML 400 MG/200 ML PIGGYBACK IV.SIG SCH ×2 (02:58→14:30)
[2017-10-14] MEDS: Levothyroxine 112 MCG Tablet PO SCH (05:35)
[2017-10-14 08:00] LABS: Hematocrit 34.2 % (35.0-46.0); Hemoglobin 11.2 gm/dL (11.6-15.3); Mean Corpuscular HGB Conc 32.9 % (32.0-36.0); Mean Corpuscular Hemoglobin 29.2 pg (27.0-34.0); Mean Corpuscular Volume 88.7 fL (80.0-100.0); Mean Platelet Volume 8.1 fL (7.0-11.0); Platelet Count 214 th/mm3 (150-450); Red Blood Count 3.86 mil/mm3 (4.00-5.30); Red Cell Distribution Width 17.4 % (11.6-17.2); White Blood Count 9.8 th/mm3 (4.0-11.0)
[2017-10-14 08:09] LABS: INR 1.4 Ratio; Prothrombin Time 13.8 sec (9.8-11.6)
[2017-10-14 08:38] LABS: Calcium 7.9 mg/dL (8.5-10.1); Carbon Dioxide 23.7 meq/L (21.0-32.0); Potassium 3.2 meq/L (3.5-5.1)
--- NOTE | 2017-10-14 09:30 | P.PNIM ---
Subjective Interval history: Patient reports she is feeling okay today. Discussed with her son at bedside. She is less lethargic today. Physical Exam Vital signs: Vital Signs 10/13/17 11:58 10/13/17 17:15 10/13/17 19:36 Temperature 97.4 F L 97.8 F Pulse Rate 80 88 76 Respiratory Rate 18 20 Blood Pressure 133/76 132/77 Pulse Oximetry 97 95 10/13/17 19:44 10/13/17 21:50 10/13/17 23:51 Temperature 97.9 F Pulse Rate 72 96 H Respiratory Rate 18 18 Blood Pressure 137/62 Pulse Oximetry 92 L 10/14/17 00:37 10/14/17 04:00 10/14/17 08:00 Temperature 98.8 F 99.0 F Pulse Rate 91 H 92 H 90 Respiratory Rate 18 19 16 Blood Pressure 154/75 H 144/65 H 142/81 H Pulse Oximetry 96 97 96 Intake & Output 10/13/17 10/14/17 10/14/17 18:59 06:59 18:59 Intake Total 1640 / 1640 951.2 / 951.2 Output Total 800 / 800 550 / 550 Balance 840 / 840 401.2 / 401.2 Weight 68.9 kg Intake: IV 1400 / 1400 711.2 / 711.2 Cipro 400 MG/200 ML Inj 400 mg 400 / 400 200 / 200 In 200 ml @ 200 mls/hr IV.SIG Q12H [facility] Rx#:[id number] MVI-12 Inj 10 ML Thiamine Inj 511.2 / 511.2 100 MG Folvite Inj 1 MG In D5W/ Normal Saline Inj 500 ML @ 127. 8 mls/hr IV.SIG ONCE ONE Rx#: [id number] Oral 240 / 240 240 / 240 Output: Urine 400 / 400 Urine Amount (Stoma) 400 / 400 550 / 550 Pre-Hospital: Continent 400 / 400 550 / 550 Urostomy Other: Date of Last Bowel Movement 10/14/17 10/14/17 # Bowel Movements 1 Narrative: GENERAL: More awake today but easily fall asleep. CARDIOVASCULAR: Regular rate and rhythm without murmurs, gallops, or rubs. RESPIRATORY: Breath sounds equal bilaterally. No accessory muscle use. GASTROINTESTINAL: Abdomen soft, non-tender, nondistended. MUSCULOSKELETAL: No cyanosis,. Trace edema Results - Labs CBC & Chem 7: 10/14/17 07:45 10/14/17 07:45 Laboratory Results - last 24 hr 10/13/17 10/13/17 10/13/17 09:30 09:30 11:10 WBC 8.7 RBC 3.84 L Hgb 11.0 L Hct 38.0 MCV 98.8 D MCH 28.7 MCHC 29.1 L RDW 18.9 H Plt Count 175 MPV 8.4 PT 22.0 H INR 2.2 Sodium 137 Potassium 3.6 Chloride 106 Carbon Dioxide 22.2 Anion Gap 9 BUN 28 H Creatinine 0.88 Estimated GFR 61 L POC Glucose Random Glucose 176 H Calcium 8.0 L Ammonia 10/13/17 10/13/17 10/13/17 11:10 12:26 21:29 WBC RBC Hgb Hct MCV MCH MCHC RDW Plt Count MPV PT INR Sodium Potassium Chloride Carbon Dioxide Anion Gap BUN Creatinine Estimated GFR POC Glucose 194 H 164 H Random Glucose Calcium Ammonia 87 H 10/14/17 10/14/17 10/14/17 07:45 07:45 07:45 WBC 9.8 RBC 3.86 L Hgb 11.2 L Hct 34.2 L MCV 88.7 D MCH 29.2 MCHC 32.9 RDW 17.4 H Plt Count 214 MPV 8.1 PT 13.8 H INR 1.4 Sodium 139 Potassium 3.2 L Chloride 105 Carbon Dioxide 23.7 Anion Gap 10 BUN 19 H Creatinine 0.81 Estimated GFR 67 L POC Glucose Random Glucose 143 H Calcium 7.9 L Ammonia Assessment and Plan - Assessment (1) Toxic metabolic encephalopathy Code(s): G92 - Toxic encephalopathy Status: Acute (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 UTI may be contributing. Recommend minimizing sedating medications. Discussed with family at length. Discussed with RN. Hold long acting Morphine for now Appreciate Neurology input. MRI neg. EEG pending. Agree with neurology. Improved after adding lactulose. Continue Lactulose and rifaximin to help with hyperammonemia. Acute UTI: Urine grew Citrobacter. pansensitive. - Switched from Aztreonam to Cipro -Repeat UA Hyperammonemia Liver ultrasound noted with no definite acute liver findings Continue rifaximin and lactulose. Improving Transaminitis At baseline the patient has elevated LFTs more they are more elevated this admission Ultrasound noted Hold Statin Monitor LFTs Diarrhea: Resolved. this may be due to carcinoid tumor Treatment as per hematology. Appreciate assistance. History of carcinoid tumor S/P octreotide subcu as per oncology. Diarrhea resolved. Appreciate assistance Acute renal injury Prerenal, secondary to dehydration Continue with gentle IV fluid hydration and monitor BUN and creatinine Creatinine improved to baseline. Continue to monitor. Diabetes type 2 Hold oral hypoglycemic agent along with basal insulin until patient's appetite increased along with improvement of renal function Start insulin sliding scale with fingerstick blood glucose monitoring Hypertension Blood pressure acceptable. Continue to monitor. History of atrial fibrillation Currently in normal sinus rhythm Stable. Continue Coumadin and continue atenolol Pharmacy following for INR management. History of breast cancer Resume Arimidex GI prophylaxis: Stool softener PRN constipation. DVT PPx: On Coumadin. INR fluctuating. Discharge Planning: Need improvement in mental status. Will likely need SNF. (5) Diabetes Qualifiers: Diabetes mellitus type: type 2 Diabetes mellitus host hostess insulin use: with host hostess use Diabetes mellitus complication status: without complication Qualified Code(s): E11.9 - Type 2 diabetes mellitus without complications; Z79.4 - manager strategic partnerships (current) use of insulin
--- NOTE | 2017-10-14 09:31 | P.PNONC ---
Subjective Interval history: Patient sitting in chair, family at the bedside. She remains lethargic. She does open her eyes to my questions, however she does not answer them. Objective Vital Signs/Intake & Output: Vital Signs 10/13/17 11:58 10/13/17 17:15 10/13/17 19:36 Temperature 97.4 F L 97.8 F Pulse Rate 80 88 76 Respiratory Rate 18 20 Blood Pressure 133/76 132/77 Pulse Oximetry 97 95 10/13/17 19:44 10/13/17 21:50 10/13/17 23:51 Temperature 97.9 F Pulse Rate 72 96 H Respiratory Rate 18 18 Blood Pressure 137/62 Pulse Oximetry 92 L 10/14/17 00:37 10/14/17 04:00 10/14/17 08:00 Temperature 98.8 F 99.0 F Pulse Rate 91 H 92 H 90 Respiratory Rate 18 19 16 Blood Pressure 154/75 H 144/65 H 142/81 H Pulse Oximetry 96 97 96 Intake & Output 10/13/17 10/14/17 10/14/17 18:59 06:59 18:59 Intake Total 1640 / 1640 951.2 / 951.2 Output Total 800 / 800 550 / 550 Balance 840 / 840 401.2 / 401.2 Weight 68.9 kg Intake: IV 1400 / 1400 711.2 / 711.2 Cipro 400 MG/200 ML Inj 400 mg 400 / 400 200 / 200 In 200 ml @ 200 mls/hr IV.SIG Q12H [facility] Rx#:[id number] MVI-12 Inj 10 ML Thiamine Inj 511.2 / 511.2 100 MG Folvite Inj 1 MG In D5W/ Normal Saline Inj 500 ML @ 127. 8 mls/hr IV.SIG ONCE ONE Rx#: [id number] Oral 240 / 240 240 / 240 Output: Urine 400 / 400 Urine Amount (Stoma) 400 / 400 550 / 550 Pre-Hospital: Continent 400 / 400 550 / 550 Urostomy Other: Date of Last Bowel Movement 10/14/17 10/14/17 # Bowel Movements 1 Result Diagrams: 10/14/17 07:45 10/14/17 07:45 Laboratory Results: Laboratory Results - last 24 hr 10/13/17 10/13/17 10/13/17 09:30 09:30 11:10 WBC 8.7 RBC 3.84 L Hgb 11.0 L Hct 38.0 MCV 98.8 D MCH 28.7 MCHC 29.1 L RDW 18.9 H Plt Count 175 MPV 8.4 PT 22.0 H INR 2.2 Sodium 137 Potassium 3.6 Chloride 106 Carbon Dioxide 22.2 Anion Gap 9 BUN 28 H Creatinine 0.88 Estimated GFR 61 L POC Glucose Random Glucose 176 H Calcium 8.0 L Ammonia 10/13/17 10/13/17 10/13/17 11:10 12:26 21:29 WBC RBC Hgb Hct MCV MCH MCHC RDW Plt Count MPV PT INR Sodium Potassium Chloride Carbon Dioxide Anion Gap BUN Creatinine Estimated GFR POC Glucose 194 H 164 H Random Glucose Calcium Ammonia 87 H 10/14/17 10/14/17 10/14/17 07:45 07:45 07:45 WBC 9.8 RBC 3.86 L Hgb 11.2 L Hct 34.2 L MCV 88.7 D MCH 29.2 MCHC 32.9 RDW 17.4 H Plt Count 214 MPV 8.1 PT 13.8 H INR 1.4 Sodium 139 Potassium 3.2 L Chloride 105 Carbon Dioxide 23.7 Anion Gap 10 BUN 19 H Creatinine 0.81 Estimated GFR 67 L POC Glucose Random Glucose 143 H Calcium 7.9 L Ammonia Culture Results: Microbiology 10/09/17 14:05 Urine Culture - Final Clean Catch Urine Citrobacter freundii Medications: Active Medications Generic Name Dose Route Start Last Admin Trade Name Freq PRN Reason Stop Dose Admin Anastrozole 1 mg 10/10/17 09:00 10/13/17 08:31 Arimidex PO 1 mg DAILY [facility] Administration Atenolol 50 mg 10/10/17 09:00 10/13/17 08:31 Tenormin PO 50 mg DAILY [facility] Administration Benzonatate 100 mg 10/12/17 20:20 10/13/17 08:31 Tessalon Perles PO 100 mg Q8H PRN Administration COUGH Budesonide/Formoterol Fumarate 2 puff 10/09/17 15:00 10/13/17 08:51 Symbicort 160/4.5 Mcg Inh INH 2 puff DAILY [facility] Administration Hydralazine HCl 25 mg 10/09/17 18:00 10/13/17 19:33 Apresoline PO 25 mg TID [facility] Administration Ciprofloxacin/Dextrose 400 mg in 200 mls @ 200 mls/hr 10/11/17 15:00 04:27 Cipro 400 Mg/200 Ml Inj IV.SIG Infused Q12H [facility] Infusion Insulin Aspart 0 unit 10/09/17 17:00 10/13/17 21:32 Novolog Insulin Correctional Sugar Inj SQ 1 unit ACHS [facility] Administration Protocol Lactulose 30 ml 10/13/17 12:15 10/13/17 17:18 Lactulose Liq PO 30 ml DAILY [facility] Administration Levothyroxine Sodium 112 mcg 10/09/17 15:00 10/14/17 05:35 Synthroid PO 112 mcg DAILY@0600 [facility] Administration Levothyroxine Sodium 25 mcg 10/09/17 15:00 10/14/17 05:35 Synthroid PO 25 mcg DAILY@0600 [facility] Administration Montelukast Sodium 10 mg 10/09/17 21:00 10/13/17 21:24 Singulair PO 10 mg HS [facility] Administration Morphine Sulfate 15 mg 10/10/17 07:56 10/13/17 11:06 Msir PO 15 mg Q6H PRN Administration PAIN 6-10 Morphine Sulfate 15 mg 10/10/17 09:00 10/13/17 21:23 Oramorph Sr PO 15 mg Q12HR [facility] Administration Octreotide Acetate 50 mcg 10/09/17 21:00 10/13/17 21:21 Sandostatin Inj SQ Not Given Q12HR [facility] Paroxetine HCl 30 mg 10/10/17 09:00 10/13/17 08:31 Paxil PO 30 mg DAILY [facility] Administration Cyclosporine( 0 each 10/09/17 21:00 10/13/17 21:26 Restasis) 1 Drop To EACH EYE 1 each Each Eye Bid BID [facility] Administration Prednisone 5 mg 10/09/17 15:00 10/13/17 21:23 Deltasone PO 5 mg BID [facility] Administration Rifaximin 200 mg 10/10/17 14:00 10/14/17 05:35 Xifaxan PO 200 mg Q8HR [facility] Administration Vitamin D 2,000 unit 10/10/17 09:00 10/13/17 08:31 Vitamin D3 PO 2,000 unit DAILY [facility] Administration Warfarin Sodium 1 mg 10/13/17 16:00 10/13/17 17:18 Coumadin PO 1 mg DAILY@1600 [facility] Administration Objective Remarks: GENERAL: Elderly female patient, sitting in chair, lethargic. SKIN: Warm and dry. Bilateral arms with petechiae rash. HEAD: Normocephalic. EYES: No scleral icterus. No injection or drainage. NECK: Supple, trachea midline. CARDIOVASCULAR: Regular rate and rhythm without murmurs. RESPIRATORY: Anterior breath sounds with scattered rhonchi, equal bilaterally. No accessory muscle use. GASTROINTESTINAL: Abdomen soft, non-tender, nondistended. EXTREMITIES: No cyanosis. Bilateral arms with 1+ edema, petechiae/purpura rash. MUSCULOSKELETAL: Unable to assess. NEUROLOGICAL: Lethargic, does not follow commands. Opens eyes to voice. PSYCHIATRIC: Unable to evaluate at this time. 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 Her carcinoid syndrome has been stable for many years. Most recently she was noted to have increasing chromogranin A suggestive of worsening carcinoid syndrome. 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 She has had definitive surgery and is on adjuvant hormonal therapy. She was admitted with weakness confusion and hypotension. 1. Patient remains on Cipro for UTI 2. INR subtherapeutic, likely secondary to vitamins patient received yesterday. Will resume sq heparin until therapeutic with INR. 3. lethargy/confusion, patient being treated for high ammonia levels with lactulose. MRI negative. Sedative medications could also be contributing, use cautiously. 4. She continues with Sandostatin for carcinoid tumor. 5. Do not give sedative medications if the patient is lethargic. - Attending Statement The exam, history, and the medical decision-making described in the above note were completed with the assistance of the mid-level provider. I reviewed and agree with the findings presented. I attest that I had a [id number] encounter with the patient on the same day, and personally performed and documented my assessment and findings in the medical record. Lethargic but arousable and verbally responsive. States that she is tired. Noted to have increase activity by the family. She sat on the commode this morning. She has poor appetite. She had nausea relieved by Zofran. Most concerning his diarrhea 5 times this afternoon. We discussed the multiple factors contributing to the diarrhea. Ammonia level decreased with the lactulose. Octreotide will be optimized in the case that this is related to the carcinoid. Replacement of potassium. No significant improvement after a trial of multivitamin. Pulmonary consult appreciated. Continue supportive care. Consider transfer to rehab as she is quite debilitated.
[2017-10-14] MEDS: predniSONE 5 MG Tablet PO SCH ×2 (09:55→21:55)
[2017-10-14] MEDS: hydrALAZINE 25 MG Tablet PO SCH ×3 (09:55→17:39)
[2017-10-14] MEDS: Anastrozole 1 MG Tablet PO SCH (09:55)
[2017-10-14] MEDS: Atenolol 50 MG Tablet PO SCH (09:55)
[2017-10-14] MEDS: Budesonide-Formoterol 160/4.5 MCG 6 GM Inhaler INH SCH (09:57)
[2017-10-14] MEDS: CYCLOSPORINE EACH EYE SCH ×2 (09:57→22:00)
[2017-10-14] MEDS: Octreotide Inj 50 MCG/ML Vial SQ SCH (09:57)
[2017-10-14] MEDS: Insulin NovoLOG Aspart Correctional Sugar Inj SQ SCH ×4 (11:52→22:01)
[2017-10-14] MEDS: Heparin - SQ 10,000 UNITS/ML Vial SQ SCH ×2 (16:14→21:55)
[2017-10-14] MEDS: Morphine Sulfate 15 MG SR Tablet PO SCH ×2 (16:28→21:56)
[2017-10-14 18:14] LABS: Bacteria,Urine Rare /hpf; Bilirubin,Urine Negative (Negative); Clarity,Urine Hazy (Clear); Color,Urine Amber (Yellw/Straw); Glucose,Urine (UA) Negative (Negative); Leukocyte Esterase,Urine Negative (Negative); Mucus,Urine Few /lpf (Occasional); Nitrite,Urine Negative (Negative); Specific Gravity,Urine 1.012 (1.002-1.035); Urobilinogen,Urine 4 or Greater mg/dL (Less than 2)
[2017-10-14] MEDS: Montelukast 10 MG Tablet PO SCH (21:56)
[2017-10-14] MEDS: Octreotide Inj 50 MCG/ML Vial IV.PUSH SCH (22:00)
[2017-10-15] MEDS: Ciprofloxacin 400 MG/200 ML 400 MG/200 ML PIGGYBACK IV.SIG SCH (04:37)
[2017-10-15] MEDS: Octreotide Inj 50 MCG/ML Vial IV.PUSH SCH ×3 (05:32→21:51)
[2017-10-15] MEDS: Heparin - SQ 10,000 UNITS/ML Vial SQ SCH ×3 (05:32→21:50)
[2017-10-15] MEDS: Levothyroxine 112 MCG Tablet PO SCH (05:32)
[2017-10-15] MEDS: Atenolol 50 MG Tablet PO SCH (10:02)
[2017-10-15] MEDS: predniSONE 5 MG Tablet PO SCH ×2 (10:03→21:50)
[2017-10-15] MEDS: Anastrozole 1 MG Tablet PO SCH (10:04)
[2017-10-15] MEDS: hydrALAZINE 25 MG Tablet PO SCH ×3 (10:04→20:31)
[2017-10-15] MEDS: Insulin NovoLOG Aspart Correctional Sugar Inj SQ SCH ×4 (10:15→20:52)
--- NOTE | 2017-10-15 12:17 | P.CONPAL ---
Consult Service: Palliative Care Requesting Physician: Paulette Stone Reason for Consult: a. To assist with evaluation and management of symptoms including: pain, confusion, diarrhea b. To assist medical decision maker(s) with: better understanding of current medical conditions; weighing benefits/burdens of medical treatment options; making medical treatment decisions. Primary Care Provider: Arnie Trevizo MD History of Present Illness History of Present Illness: this pt presented to the ED on 10/09/17 with complaints of weakness, presented with family. Nausea and diarrhea also reported. No fever reported. She was unable to take her medications due to weakness. She reported INR 7 2 days prior and received vitamin K the day before and day of presentation.Multiple chronic medical conditions reported.[Carcinoid tumor, bladder cancer with urostomy, hypertension, hyperlipidemia, hypothyroidism, anxiety chronic pain, DVTs, hyperlipidemia, depression, TIA, recent CVA ] * cxr= linear parenchymal opacity right lung base likely atelectasis 1 cm sclerotic lesion right proximal humerus concerning for metastatic disease in patient with known history of rectal and breast CA. CT brain =no acute abnormality. Calcified mass left frontal convexity measuring 12 mm. Characteristics of meningioma. Lesion has been present not significantly changed since November 2016. Chronic findings including mild generalized atrophy and chronic periventricular white matter change. liver ultrasound =no acute findings interval development left-sided hydronephrosis. * She was started on IV fluids. Urostomy bag noted with, concern for UTI. BUN 67, creatinine 1.44. GFR 35. Troponin 0 0.02. WBC 12.3. Patient was admitted for further evaluation and management. Oncology was consulted. * Oncology hx: metastatic carcinoid and ER positive, and HER2/charisma overexpressing breast cancer. 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 s/p definitive surgery and is on adjuvant hormonal therapy. Recently she has had increasing chromogranin A suggestive of worsening carcinoid syndrome. She had persistent diarrheal symptoms that were concerning for manifestation of her carcinoid. Octreotide to be offered with hydration. And possible delirium in light of acute illness and dehydration. She had known appointment set up with Dr. Mares/neurology, which was canceled due to hospital presentation. Baseline LFTs noted to be high however now significantly elevated compared to baseline. Increase in bilirubin which had not been previously noted. * * * * outpatient follow-up with oncology 09/15/17 patient was more confused according to her daughter. She would put on the run close. She was trying to put on pajamas for an office visit. Daughter was concerned about recurrent stroke. Daughter also requesting additional assistance at home with her care, hospital bed if possible. She was complaining of diarrhea as well as weakness and fatigue. Oncology discussed concern for carcinoid syndrome, chromogranin A increasing. No complications noted related to Arimidex. She has no evidence of recurrent breast disease. Plan to monitor diarrhea and possibility of lanreotide for carcinoid syndrome. She was referred to follow with neurology for confusion possible dementia. INR recently supratherapeutic, she has had dose adjustments. * Patient started on aztreonam in the ED urine culture pending. Diarrhea seems to be slowing during hospital course. She is resumed on home dosing extended release morphine which daughter reports she normally takes every 8 hours. * 10/10 patient apparently more lethargic difficult to arouse confused. Concern for recurrent stroke. Neurology consulted. Oncology notes discussion with family regarding possible recurrent stroke and irreversible deficits. Palliative management and comfort measures were discussed. Difficult to determine if his delirium versus progressive stroke or seizures. INR subtherapeutic. * Neurology consultation: Mental status changes could be related to encephalopathy from dehydration however known history of stroke and A. fib will need to rule out stroke plan to obtain MRI. We will need to obtain was sedation was unable to complete previously with agitation. EEG ordered. Family concerned that long-acting morphine has been held for sedation, family concerned about patient having withdrawal. * EEG notable for generalized slowing. MRI with chronic changes no acute changes or CVA noted. Neurology recommends consider lactulose for elevated ammonia (65). Urine culture positive Citrobacter, abx changed to Cipro. * 10/12 patient a little bit more alert. Talking some to her family. Poor appetite poor oral intake. On rifaximin, lactulose. Diarrhea has resolved. * 10/13 patient a little more alert. Still very weak. Confused at times lethargic at times. Increased cough and sputum, pulmonology consulted. Now with increase poor oral intake. Performance status declining. Continued on Sandostatin for carcinoid tumor. Continue to hold sedating medications if patient lethargic. Remains on Cipro for UTI. * 10/15/17 palliative care consulted to assist with clarification of goals of medical treatment, pain Patient initially seen in room with son Que present. She is restless at times moves around oriented to self and family. They request I returned later in the day after p.m. when his sister Alisa, who is a healthcare surrogate , will be back in. Short review with Que of palliative care consultation, role and brief review of patient social, medical history. Daughter Alisa later arrives met with her at length approximately 50 minutes. see family meeting. FAMILY HISTORY: no family history of cancer. . Function/Cognitive Trajectory: Previously lived at home with her daughter. Generally cognitively sharp. Ambulatory able to go on outings with her daughter. Does require some assistance with ADLs. Has utilized home health, as well as [facility] in the past. Dtr does indicate pt with minor forgetfulness, mild confusion over the past many mos as her baseline. Had prev lived in [place] but did not like it. Requires assist to manage meds, dr appts etc. Sleeps/naps often during day after any activity. Review of Systems other (per dtr) Constitutional: Reports daytime sleepiness, Reports weakness, Denies fever(s) Eyes: Reports dry eyes Ears, Nose, Mouth, and Throat: Denies headache(s) Cardiovascular: Denies chest pain, Denies shortness of breath Gastrointestinal: Reports loose stools, Denies abdominal pain, Denies bright, red blood in stools, Denies nausea, Denies vomiting Genitourinary: Denies blood in urine, Denies difficulty urinating Musculoskeletal: Reports back pain (chronic), Reports joint pain (rt knee chronic) Skin/Breast: Denies rash Neurologic: Reports behavioral changes, Reports confusion, Denies dizziness, Denies headache(s) Psychiatric: Reports change in appetite, Reports confusion PMFSH - History History Provided By: Family Member - Medical History Medical History: Medical History (Last Reviewed 10/15/17 @ 12:07 by ENRICO Centeno) Anxiety Asthma Atrial fibrillation CAD (coronary artery disease) COPD (chronic obstructive pulmonary disease) Cancer Cancer of left breast Carcinoid syndrome Depression H/O blood clots History of CVA (cerebrovascular accident) Hyperlipidemia Hypertension Neuroendocrine carcinoma - Surgical History Surgical History: Surgical History (Last Reviewed 10/15/17 @ 12:07 by ENRICO Centeno) H/O mastectomy Heart valve replaced History of bowel resection History of esophagogastroduodenoscopy (EGD) Hx of appendectomy Hx of tonsillectomy Hx of total cystectomy S/P AVR S/P CABG x 1 S/P cholecystectomy S/P ileal conduit - Tobacco History Second Hand Smoke Exposure: No Tobacco Use In Past 30 Days: No Smoking Status: Never smoker Tobacco Type: Cigarettes - Alcohol History How Often Do You Have a Drink Containing Alcohol: Never - Substance Use History Substance History: No History of Abuse - Travel History Recent Travel in the [place] Within the Last 8 Weeks: No Recent Travel Out of the Country Within the Last 8 Weeks: No - Immunization History Tetanus Immunization: Unsure Hx Influenza Vaccine This Season: Unable to Assess Medications and Allergies Active Medications: Active Medications Al Hydroxide/Mg Hydroxide (Milk Of Joe Liq) 30 ml PO Q12H PRN PRN Reason: Mild Constipation Albuterol (Duoneb Neb ([facility])) 1 ampul NEB Q6HR WHILE AWAKE NEB [facility] Last Admin: 10/15/17 07:34 Dose: 1 ampul Anastrozole (Arimidex) 1 mg PO DAILY [facility] Last Admin: 10/15/17 10:04 Dose: 1 mg Atenolol (Tenormin) 50 mg PO DAILY [facility] Last Admin: 10/15/17 10:02 Dose: 50 mg Benzonatate (Tessalon Perles) 100 mg PO Q8H PRN PRN Reason: COUGH Last Admin: 10/13/17 08:31 Dose: 100 mg Bisacodyl (Dulcolax Supp) 10 mg RECTAL DAILY PRN PRN Reason: SEVERE CONSITIPATION Budesonide/Formoterol Fumarate (Symbicort 160/4.5 Mcg Inh) 2 puff INH DAILY [facility] Last Admin: 10/14/17 09:57 Dose: 2 puff Dextrose (D50w Vial) 50 ml IV.PUSH UNSCH PRN PRN Reason: PER HYPOGLYCEMIA PROTOCOL Glucagon (Glucagon Inj) 1 mg OTHER PRN PRN PRN Reason: for Hypoglycemia Protocol Heparin Sodium (Porcine) (Heparin Inj) 5,000 units SQ Q8HR [facility] Last Admin: 10/15/17 05:32 Dose: 5,000 units Hydralazine HCl (Apresoline) 25 mg PO TID [facility] Last Admin: 10/15/17 10:04 Dose: 25 mg Ciprofloxacin/Dextrose (Cipro 400 Mg/200 Ml Inj) 400 mg in 200 mls @ 200 mls/ hr IV.SIG Q12H [facility] Last Infusion: 10/15/17 06:58 Dose: 0 mls/hr Insulin Aspart (Novolog Insulin Correctional Sugar Inj) 0 unit SQ [facility]; Protocol Last Admin: 10/15/17 10:15 Dose: Not Given Lactulose (Lactulose Liq) 30 ml PO DAILY PRN PRN Reason: SEVERE CONSITIPATION Last Admin: 10/15/17 10:01 Dose: 30 ml Lactulose (Lactulose Liq) 30 ml PO DAILY [facility] Last Admin: 10/15/17 10:02 Dose: 30 ml Levothyroxine Sodium (Synthroid) 112 mcg PO DAILY@0600 [facility] Last Admin: 10/15/17 05:32 Dose: 112 mcg Levothyroxine Sodium (Synthroid) 25 mcg PO DAILY@0600 [facility] Last Admin: 10/15/17 05:32 Dose: 25 mcg Miscellaneous (Pill Splitter) 1 each OTHER [facility] Montelukast Sodium (Singulair) 10 mg PO [facility] Last Admin: 10/14/17 21:56 Dose: 10 mg Morphine Sulfate (Msir) 15 mg PO Q6H PRN PRN Reason: PAIN 6-10 Last Admin: 10/13/17 11:06 Dose: 15 mg Morphine Sulfate (Oramorph Sr) 15 mg PO [facility] Last Admin: 10/14/17 21:56 Dose: 15 mg Octreotide Acetate (Sandostatin Inj) 50 mcg IV.PUSH Q8HR [facility] Last Admin: 10/15/17 05:32 Dose: 50 mcg Ondansetron HCl (Zofran Odt) 4 mg PO Q6H PRN PRN Reason: NAUSEA OR VOMITING Paroxetine HCl (Paxil) 30 mg PO DAILY [facility] Last Admin: 10/15/17 10:03 Dose: 30 mg Cyclosporine( Restasis) 1 Drop To Each Eye Bid 0 each EACH EYE BID [facility] Last Admin: 10/14/17 22:00 Dose: 1 each Patient Own Medication( Methenamine 500 Mg) 0 each PO [facility] Pharmacy Profile Note (Coumadin Consult Pharmacy) 1 each OTHER [facility] Potassium Chloride (Klor-Con 10) 10 meq PO BID [facility] Last Admin: 10/15/17 10:02 Dose: 10 meq Prednisone (Deltasone) 5 mg PO BID [facility] Last Admin: 10/15/17 10:03 Dose: 5 mg Rifaximin (Xifaxan) 200 mg PO Q8HR [facility] Last Admin: 10/15/17 05:32 Dose: 200 mg Sennosides (Senokot) 17.2 mg PO Q12H PRN PRN Reason: Moderate Constipation Sodium Chloride (Ns Flush) 2 ml IV.FLUSH PRN PRN PRN Reason: FLUSH AFTER USING IV ACCESS Vitamin D (Vitamin D3) 2,000 unit PO DAILY [facility] Last Admin: 10/15/17 10:04 Dose: 2,000 unit Warfarin Sodium (Coumadin) 1 mg PO DAILY@1600 [facility] Last Admin: 10/14/17 16:14 Dose: 1 mg Allergies Allergy/AdvReac Type Severity Reaction Status Date / Time amlodipine Allergy Severe Verified 07/15/17 14:01 atorvastatin Allergy Severe Verified 07/15/17 14:01 codeine Allergy Severe nausea Verified 07/15/17 14:01 dimenhydrinate Allergy Severe Confusion Verified 07/15/17 14:01 simvastatin Allergy Severe Verified 07/15/17 14:01 zolpidem Allergy Severe Confusion Verified 07/15/17 14:01 cephalexin Allergy Intermediate Rash Verified 07/15/17 14:01 Home Medications Medication Instructions Recorded Confirmed Type anastrozole 1 mg PO DAILY 10/09/17 10/09/17 History atenolol 50 mg PO DAILY 10/09/17 10/09/17 History benzonatate [Tessalon Perles] 100 mg PO TID PRN 10/09/17 10/09/17 History budesonide-formoterol [Symbicort] 2 puff INHALATION DAILY 10/09/17 10/09/17 History cholecalciferol (vitamin D3) 2,000 unit PO DAILY 10/09/17 10/09/17 History [Vitamin D3] cyclosporine [Restasis] 1 drp EACH EYE BID 10/09/17 10/09/17 History glipizide-metformin 1 tab PO BID 10/09/17 10/09/17 History hydralazine 25 mg PO TID 10/09/17 10/09/17 History insulin detemir U-100 [Levemir 10 unit SUB-Q HS 10/09/17 10/09/17 History U-100 Insulin] levothyroxine 137 mcg PO DAILY 10/09/17 10/09/17 History lisinopril 10 mg PO DAILY 10/09/17 10/09/17 History methenamine mandelate 500 mg PO HS 10/09/17 10/09/17 History mirtazapine 45 mg PO HS 10/09/17 10/09/17 History montelukast [Singulair] 10 mg PO HS 10/09/17 10/09/17 History morphine 15 mg PO Q6H PRN 10/09/17 10/09/17 History morphine 15 mg PO Q8HR PRN 10/09/17 10/09/17 History paroxetine HCl [Paxil] 30 mg PO DAILY 10/09/17 10/09/17 History pravastatin 10 mg PO HS 10/09/17 10/09/17 History prednisone 5 mg PO BID 10/09/17 10/09/17 History warfarin [Coumadin] 3 mg PO DAILY 10/09/17 10/09/17 History Advance Directives Living Will: Yes Healthcare Surrogate: Yes (Kaela Cuellar) Ethical and Legal Issues: Patient here with altered mental status. Multifactorial. Not able to make her own informed decisions. Kaela Cuellar is designated healthcare surrogate. Physical Exam Vital Signs: Vital Signs - 24 hr 10/14/17 12:00 10/14/17 14:01 10/14/17 16:00 Temperature 97.5 F L 97.6 F Pulse Rate 93 H 85 95 H Respiratory Rate 16 16 18 Blood Pressure 138/88 129/80 Pulse Oximetry 95 93 L 10/14/17 20:00 10/14/17 20:27 10/15/17 00:00 Temperature 97.8 F 97.8 F Pulse Rate 85 88 77 Respiratory Rate 16 18 16 Blood Pressure 143/77 H 154/93 H Pulse Oximetry 98 97 10/15/17 04:00 10/15/17 07:36 10/15/17 08:00 Temperature 98.2 F 97.8 F Pulse Rate 70 63 Respiratory Rate 16 13 20 Blood Pressure 126/75 142/75 H Pulse Oximetry 98 96 I&O: Intake & Output 10/13/17 10/14/17 10/15/17 10/16/17 06:59 06:59 06:59 06:59 Intake Total 1860 / 1860 2591.2 / 2591.2 590 / 590 Output Total 1700 / 1700 1350 / 1350 550 / 550 Balance 160 / 160 1241.2 / 1241.2 40 / 40 Weight 68.8 kg 68.9 kg 68.3 kg Physical Exam: CONSTITUTIONAL/GENERAL: This is an adequately nourished patient, lethargic, ill- appearing. TUBES/LINES/DRAINS: Peripheral IV upper extremity, SCDs, urostomy SKIN: No jaundice, rashes, or lesions. Ecchymoses on upper extremities. No wounds seen anteriorly. Skin warm, dry. Pale. HEAD: Atraumatic. Normocephalic. EYES: Pupils equal and round and reactive. Extraocular motions intact. No scleral icterus. No injection or drainage. Fundi not examined. ENT: Nose without bleeding or purulent drainage. Throat without visible erythema, exudates, masses, or lesions. NECK: Trachea midline. Supple, nontender. No palpable thyroid enlargement or nodularity. CARDIOVASCULAR: Regular rate and rhythm without murmur. No JVD. Peripheral pulses symmetric.trace periph edema RESPIRATORY/CHEST: Symmetric, unlabored respirations. Clear to auscultation, diminished to bases. Breath sounds equal bilaterally. GASTROINTESTINAL: Abdomen soft, non-tender, nondistended. No hepato-splenomegaly , or palpable masses. + Urostomy present. No guarding. Bowel sounds present. GENITOURINARY: Without palpable bladder distension. urostomy draining dark yellow urine. MUSCULOSKELETAL: Extremities without clubbing, cyanosis. trace periph edema. No joint tenderness or effusion noted. No calf tenderness. No mottling or clubbing. LYMPHATICS: No palpable cervical or supraclavicular adenopathy. NEUROLOGICAL: Lethargic, arouses at times. Appears oriented to self, family and hospital. Does not answer my other questions resumed sleeping unable to fully assess orientation though does not appear. Moves all 4 extremities at times appears restless. Does not stay awake long enough to follow all of my commands and follows some when awake. PSYCHIATRIC: Slightly restless at times otherwise no obvious depression or hallucinations Diagnostic Tests Laboratory: Laboratory Results - last 72 hr 10/12/17 10/12/17 10/12/17 11:31 13:05 16:57 WBC RBC Hgb Hct MCV MCH MCHC RDW Plt Count MPV PT INR Sodium Potassium Chloride Carbon Dioxide Anion Gap BUN Creatinine Estimated GFR POC Glucose 167 H 156 H Random Glucose Calcium Magnesium Ammonia 91 H Urine Color Urine Clarity Urine pH Ur Specific [place] Urine Protein Urine Glucose (UA) Urine Ketones Urine Occult Blood Urine Nitrate Urine Bilirubin Urine Urobilinogen Ur Leukocyte Esterase Urine RBC Urine WBC Urine Bacteria Urine Mucus Micro UA Comment Urine Culture Comments Stl C.difficile Tox PCR St C. diff Tox Epid 027 10/12/17 10/13/17 10/13/17 22:12 07:47 09:30 WBC 8.7 RBC 3.84 L Hgb 11.0 L Hct 38.0 MCV 98.8 D MCH 28.7 MCHC 29.1 L RDW 18.9 H Plt Count 175 MPV 8.4 PT INR Sodium Potassium Chloride Carbon Dioxide Anion Gap BUN Creatinine Estimated GFR POC Glucose 170 H 158 H Random Glucose Calcium Magnesium Ammonia Urine Color Urine Clarity Urine pH Ur Specific [place] Urine Protein Urine Glucose (UA) Urine Ketones Urine Occult Blood Urine Nitrate Urine Bilirubin Urine Urobilinogen Ur Leukocyte Esterase Urine RBC Urine WBC Urine Bacteria Urine Mucus Micro UA Comment Urine Culture Comments Stl C.difficile Tox PCR St C. diff Tox Epid 027 10/13/17 10/13/17 10/13/17 09:30 11:10 11:10 WBC RBC Hgb Hct MCV MCH MCHC RDW Plt Count MPV PT 22.0 H INR 2.2 Sodium 137 Potassium 3.6 Chloride 106 Carbon Dioxide 22.2 Anion Gap 9 BUN 28 H Creatinine 0.88 Estimated GFR 61 L POC Glucose Random Glucose 176 H Calcium 8.0 L Magnesium Ammonia 87 H Urine Color Urine Clarity Urine pH Ur Specific [place] Urine Protein Urine Glucose (UA) Urine Ketones Urine Occult Blood Urine Nitrate Urine Bilirubin Urine Urobilinogen Ur Leukocyte Esterase Urine RBC Urine WBC Urine Bacteria Urine Mucus Micro UA Comment Urine Culture Comments Stl C.difficile Tox PCR St C. diff Tox Epid 027 10/13/17 10/13/17 10/14/17 12:26 21:29 07:45 WBC RBC Hgb Hct MCV MCH MCHC RDW Plt Count MPV PT 13.8 H INR 1.4 Sodium Potassium Chloride Carbon Dioxide Anion Gap BUN Creatinine Estimated GFR POC Glucose 194 H 164 H Random Glucose Calcium Magnesium Ammonia Urine Color Urine Clarity Urine pH Ur Specific [place] Urine Protein Urine Glucose (UA) Urine Ketones Urine Occult Blood Urine Nitrate Urine Bilirubin Urine Urobilinogen Ur Leukocyte Esterase Urine RBC Urine WBC Urine Bacteria Urine Mucus Micro UA Comment Urine Culture Comments Stl C.difficile Tox PCR St C. diff Tox Epid 027 10/14/17 10/14/17 10/14/17 07:45 07:45 07:45 WBC 9.8 RBC 3.86 L Hgb 11.2 L Hct 34.2 L MCV 88.7 D MCH 29.2 MCHC 32.9 RDW 17.4 H Plt Count 214 MPV 8.1 PT INR Sodium 139 Potassium 3.2 L Chloride 105 Carbon Dioxide 23.7 Anion Gap 10 BUN 19 H Creatinine 0.81 Estimated GFR 67 L POC Glucose Random Glucose 143 H Calcium 7.9 L Magnesium 1.6 Ammonia Urine Color Urine Clarity Urine pH Ur Specific [place] Urine Protein Urine Glucose (UA) Urine Ketones Urine Occult Blood Urine Nitrate Urine Bilirubin Urine Urobilinogen Ur Leukocyte Esterase Urine RBC Urine WBC Urine Bacteria Urine Mucus Micro UA Comment Urine Culture Comments Stl C.difficile Tox PCR St C. diff Tox Epid 027 10/14/17 10/14/17 10/14/17 11:40 13:00 13:00 WBC RBC Hgb Hct MCV MCH MCHC RDW Plt Count MPV PT INR Sodium Potassium Chloride Carbon Dioxide Anion Gap BUN Creatinine Estimated GFR POC Glucose 178 H Random Glucose Calcium Magnesium Ammonia 60 H Urine Color [place] Urine Clarity Hazy H Urine pH 7.0 Ur Specific [place] 1.012 Urine Protein 30 H Urine Glucose (UA) Negative Urine Ketones Negative Urine Occult Blood Negative Urine Nitrate Negative Urine Bilirubin Negative Urine Urobilinogen 4 or greater Ur Leukocyte Esterase Negative Urine RBC 2 Urine WBC 7 H Urine Bacteria Rare H Urine Mucus Few H Micro UA Comment Culture not ind Urine Culture Comments Culture not ind Stl C.difficile Tox PCR St C. diff Tox Epid 027 10/14/17 10/14/17 10/15/17 19:20 21:55 10:14 WBC RBC Hgb Hct MCV MCH MCHC RDW Plt Count MPV PT INR Sodium Potassium Chloride Carbon Dioxide Anion Gap BUN Creatinine Estimated GFR POC Glucose 159 H 177 H Random Glucose Calcium Magnesium Ammonia Urine Color Urine Clarity Urine pH Ur Specific [place] Urine Protein Urine Glucose (UA) Urine Ketones Urine Occult Blood Urine Nitrate Urine Bilirubin Urine Urobilinogen Ur Leukocyte Esterase Urine RBC Urine WBC Urine Bacteria Urine Mucus Micro UA Comment Urine Culture Comments Stl C.difficile Tox PCR Negative St C. diff Tox Epid 027 Negative Result Diagrams: 10/14/17 07:45 10/15/17 14:35 Microbiology: Microbiology 10/09/17 14:05 Clean Catch Urine Urine Culture - Final Citrobacter freundii Imaging: Liver Ultrasound 10/09/17 00:00 CONCLUSION: 1. No definite acute liver findings. 2. Apparent interval development of left sided hydronephrosis. Chest X-Ray 10/09/17 10:57 CONCLUSION: 1. Linear parenchymal opacity in the right lung base, likely atelectasis/ scarring. 2. New 1 cm sharply demarcated sclerotic lesion in the right proximal humerus concerning for metastatic disease in this patient with history of rectal and breast CA. Head CT 10/09/17 10:58 CONCLUSION: 1. No acute intracranial abnormality is identified. 2. Stable extra-axial partially calcified mass in the left frontal high convexity measuring 12 mm. Imaging features are characteristic of a meningioma. The lesion has been present and not significantly changed since November 2016. 3. Stable chronic findings include mild generalized atrophy and chronic periventricular white matter change. Head MRI 10/11/17 00:00 CONCLUSION: 1. No acute intracranial findings. 2. Chronic ischemic findings. Patient/Family Conference Family Conference Time: 50 Family Conference Location: Bedside Issues Discussed: Met with kaela Cuellar at length approximately 50 minutes. Discussion included the following: * Palliative care role, purpose, approach * Additional medical, psychosocial, and spiritual history * Patients general health, functional status, and cognitive changes in the months leading up to the current hospitalization * Patient/family understanding of the current medical problems * Patient/family understanding of prognosis; while underlying malignancy issues appear to have been well controlled patient has experienced overall general decline in the past month or so and remains at risk for continued decline even with ongoing aggressive treatments reviewed that she is high risk for ongoing complications/setbacks and decline * Patients goals of care as best understood from advance directives and/or conversations and/or values * Current medical treatment options and benefits/burdens of those options * Likely scenarios comparing ongoing aggressive care with a transition to comfort measures only-very brief review of hospice as an option comfort directed treatments only if no further aggressive treatments were desired * CODE STATUS * Legal decision makers * Questions answered to the best of my ability * Palliative care contact information provided Daughter appears to have good overall understanding of patient's multiple conditions and history. She has been caring for her mother for the past 2 years. She describes to me some mild cognitive, memory changes in the past months. Patient originally lived with a daughter in [place] however [place] could no longer do that, patient was unable to sustain an ROSA because she did not like it, so moved in with her daughter down here in [place]. Overall it sounds like the patient has had some generalized decline compounded by recent medical issues. Daughter indicates however her mother usually bounces back, and has always been a fighter, and that they want to do everything possible to help her be and is good of helpful as possible. We did gently explore that even with aggressive intervention she may continue to experience complication and decline. I did gently explore that if these things continue to happen then hospice would be an option though at this time they are not interested in hospice.she will further discuss CODE STATUS with the rest of the family she does think her mother would want DNR. Assessment and Plan - Disease Oriented Problem List (1) Carcinoid tumor (2) Asthma (3) CAD (coronary artery disease) (4) Anxiety (5) Chronic pain (6) CVA (cerebral vascular accident) (7) Breast cancer (8) Hyperlipemia (9) Neuroendocrine carcinoma (10) ARF (acute renal failure) (11) Hyperammonemia (12) Diabetes - Symptom Scale (1) Pain 0-10 Scale: Unable to quantify (2) Confusion 0-10 Scale: Unable to quantify (3) Diarrhea 0-10 Scale: Unable to quantify Pertinent Non-Medical Issues: Psychosocial: . Supported by 5 adult children. Lives with her daughter Alisa cooley who is her healthcare surrogate. Originally from outside of [facility]. 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 Sustained a back injury during her work that led to long-term back pain and some disability. Spiritual: [employer] corie, medical genetics director's have been in Legal:Patient here with altered mental status. Multifactorial. Not able to make her own informed decisions. Kaela Cuellar is designated healthcare surrogate. Ethical issues impacting care: No ethical issues identified Important Contacts: kaela Lew ([phone] Prognosis: This 87-year-old patient was admitted for weakness, diarrhea. She has complicated medical history, multiple chronic comorbidities. She has underlying breast cancer which has been stable. 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 She has had ongoing issues with diarrhea, dehydration, oral intake. She is having altered mental status likely multifactorial. She is actively being treated for UTI. Given these multiple issues she is very high risk for continued decline even with ongoing aggressive treatments. Does not appear any individual process is terminal at this moment however combining these multiple factors she likely has limited life expectancy. Code Status: Full Code Plan: Legal decision maker: Patient here with altered mental status. Multifactorial. Not able to make her own informed decisions. Daughter Alisa is designated healthcare surrogate. Goals: Daughter is tearful though appears to understand patient's overall conditions at this time she indicates her mother is a fighter, and would want to continue to do everything possible to try to restore her to her most recent baseline status and overall fair health. Daughter indicates the cancer processes had been very well maintained she is very hopeful that if these other acute issues can be resolved patient can return to her baseline. She understands the patient is very high risk for continued decline and complication. She will discuss CODE STATUS further with her siblings, but thinks her mother would want DNR, full code for now by default. Not interested in hospice at this time. CODE STATUS: Full code SYMPTOMS: --Confusion-multifactorial. Patient admitted with the hydration, acute renal , UTI. Reported with some some underlying baseline mild confusion and cognitive changes possible she may have early dementia as well which is compounded by multiple medical issues. Daughter indicates significant improvement in the past several days. cautious increase of opiates 2/2 to concern for neuro status --pain- pt with chronic pain x 30+ years r/t back injury as a nurse. She has been on long-acting morphine at her current dose for many years generally well maintained on this though still with some pain had been on the long-acting morphine scheduled twice a day at home and used the short acting as needed during the day maybe 2 times per day. She also has had chronic arthritic right knee pain reported "bone on bone "and not a candidate for knee replacement at this point was supposed to actually be seeing or throat next week for possible injections. Very important to family to maximize her pain relief though I have explored with them difficulty balancing pain relief with sedation, especially in the presence of aggressive goals and avoidance of further neurological or respiratory compromise. She is not opiate naive. At this point recommend continued long-acting morphine at bedtime dosing; with short acting 15mg as needed. Daughter is amenable to decreasing short acting dose to try to increase alertness during the day. May not come in tablet < 15mg, however could consider 10mg PO in liquid form if available. 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 Has been on octreotide per oncology. However now requiring lactulose for elevated ammonia. Overall stools improving per daughter's report softer, more formed. Palliative care will continue to follow during hospital course as condition evolves, to assist patient/decision-maker with understanding of medical conditions, weighing benefits/burdens of treatment options, for clarification of goals of treatment. Additionally will assist with any symptoms of palliative concern Appreciation Thank you for the opportunity to participate in the care of Bonnie Hill. Attestation Attestation: To help prompt me to consider important information that might be impacting today's encounter and assessment, information from prior notes written by myself or my colleagues may have been "brought forward" into today's note. My signature on this note, however, is an attestation that I personally performed the exam, history, and/or decision-making noted today, and, unless otherwise indicated, the interactions with patient, family, and staff as well as the review of records all occurred today. I also attest that the listed assessment and stated plan reflect my best clinical judgment today based on the combination of historical information, prior notes, and today's exam/ interactions. When time spent is documented, it refers only to time spent today by the signer, or if indicated, combined time spent today by collaborating physician/nurse practitioner.
--- NOTE | 2017-10-15 12:33 | P.PNIM ---
Subjective Interval history: Patient had one soft bowel movement today. Had diarrhea yesterday and last night. Per daughter she was more awake this morning. Physical Exam Vital signs: Vital Signs 10/14/17 14:01 10/14/17 16:00 10/14/17 20:00 Temperature 97.6 F 97.8 F Pulse Rate 85 95 H 85 Respiratory Rate 16 18 16 Blood Pressure 129/80 143/77 H Pulse Oximetry 93 L 98 10/14/17 20:27 10/15/17 00:00 10/15/17 04:00 Temperature 97.8 F 98.2 F Pulse Rate 88 77 70 Respiratory Rate 18 16 16 Blood Pressure 154/93 H 126/75 Pulse Oximetry 97 98 10/15/17 07:36 10/15/17 08:00 10/15/17 11:56 Temperature 97.8 F Pulse Rate 63 98 H 98 H Respiratory Rate 13 20 Blood Pressure 142/75 H Pulse Oximetry 96 Intake & Output 10/14/17 10/15/17 10/15/17 18:59 06:59 18:59 Intake Total 440 / 440 150 / 150 Output Total 50 / 50 500 / 500 Balance 390 / 390 -350 / -350 Weight 68.3 kg Intake: IV 200 / 200 150 / 150 Cipro 400 MG/200 ML Inj 400 mg 200 / 200 150 / 150 In 200 ml @ 200 mls/hr IV.SIG Q12H ARI Rx#:[id number] Oral 240 / 240 Output: Stool 50 / 50 Urine Amount (Stoma) 500 / 500 Pre-Hospital: Continent 500 / 500 Urostomy Other: Date of Last Bowel Movement 10/14/17 10/14/17 # Bowel Movements 4 1 Narrative: GENERAL: Patient will wake up but falls asleep quickly. CARDIOVASCULAR: Regular rate and rhythm without murmurs, gallops, or rubs. RESPIRATORY: Breath sounds equal bilaterally. No accessory muscle use. GASTROINTESTINAL: Abdomen soft, non-tender, nondistended. MUSCULOSKELETAL: No cyanosis,. Trace edema Neuro: Remained encephalopathic. Briefly wake up but quickly falls asleep. Results - Labs CBC & Chem 7: 10/14/17 07:45 10/14/17 07:45 Laboratory Results - last 24 hr 10/14/17 10/14/17 10/14/17 13:00 13:00 19:20 POC Glucose 178 H Urine Color Shakira Urine Clarity Hazy H Urine pH 7.0 Ur Specific [place] 1.012 Urine Protein 30 H Urine Glucose (UA) Negative Urine Ketones Negative Urine Occult Blood Negative Urine Nitrate Negative Urine Bilirubin Negative Urine Urobilinogen 4 or greater Ur Leukocyte Esterase Negative Urine RBC 2 Urine WBC 7 H Urine Bacteria Rare H Urine Mucus Few H Micro UA Comment Culture not ind Urine Culture Comments Culture not ind Stl C.difficile Tox PCR Negative St C. diff Tox Epid 027 Negative 10/14/17 10/15/17 21:55 10:14 POC Glucose 159 H 177 H Urine Color Urine Clarity Urine pH Ur Specific [place] Urine Protein Urine Glucose (UA) Urine Ketones Urine Occult Blood Urine Nitrate Urine Bilirubin Urine Urobilinogen Ur Leukocyte Esterase Urine RBC Urine WBC Urine Bacteria Urine Mucus Micro UA Comment Urine Culture Comments Stl C.difficile Tox PCR St C. diff Tox Epid 027 Assessment and Plan - Assessment (1) Toxic metabolic encephalopathy Code(s): G92 - Toxic encephalopathy Status: Acute (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 Laps pending today Head CT noted and reviewed without any acute intracranial abnormalities. UTI may be contributing. Recommend minimizing sedating medications. Discussed with family at length. Discussed with RN. Appreciate Neurology input. MRI neg. EEG pending. Unfortunately the patient remains encephalopathic. She does have periods of more alertness. Continue Lactulose and rifaximin to help with hyperammonemia. Acute UTI: Urine grew Citrobacter. pansensitive. - Switched from Aztreonam to Cipro. Completed treatment Hyperammonemia Liver ultrasound noted with no definite acute liver findings Continue rifaximin and lactulose. Has been improving. Labs pending today. Transaminitis At baseline the patient has elevated LFTs more they are more elevated this admission Ultrasound noted Hold Statin Monitor LFTs Diarrhea: Intermittent. this may be due to carcinoid tumor Treatment as per hematology. Appreciate assistance. History of carcinoid tumor octreotide subcu as per oncology. Diarrhea intermittent. Appreciate assistance Acute renal injury Prerenal, secondary to dehydration Continue with gentle IV fluid hydration and monitor BUN and creatinine Creatinine improved to baseline. Continue to monitor. Diabetes type 2 Hold oral hypoglycemic agent along with basal insulin until patient's appetite increased along with improvement of renal function insulin sliding scale with fingerstick blood glucose monitoring Hypertension Blood pressure acceptable. Continue to monitor. History of atrial fibrillation Currently in normal sinus rhythm Stable. Continue Coumadin and continue atenolol Pharmacy following for INR management. History of breast cancer Resume Arimidex GI prophylaxis: Stool softener PRN constipation. DVT PPx: On Coumadin. INR fluctuating. Discharge Planning: Will likely need SNF. 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
[2017-10-15] MEDS: Budesonide-Formoterol 160/4.5 MCG 6 GM Inhaler INH SCH (13:02)
[2017-10-15] MEDS: Morphine Sulfate 15 MG IR Tablet PO PRN (15:07)
[2017-10-15 15:41] LABS: Calcium 7.9 mg/dL (8.5-10.1); Carbon Dioxide 21.6 meq/L (21.0-32.0); Magnesium 1.6 mg/dL (1.5-2.5); Potassium 3.7 meq/L (3.5-5.1)
--- NOTE | 2017-10-15 16:07 | P.PNONC ---
Subjective Interval history: Patient sleeping on approach, her son is at the bedside. Palliative care is present awaiting the patient's daughter to arrive for a family meeting. Per the patient's son she was awake earlier in the day and ate breakfast. Objective Vital Signs/Intake & Output: Vital Signs 10/14/17 16:00 10/14/17 20:00 10/14/17 20:27 Temperature 97.6 F 97.8 F Pulse Rate 95 H 85 88 Respiratory Rate 18 16 18 Blood Pressure 129/80 143/77 H Pulse Oximetry 93 L 98 10/15/17 00:00 10/15/17 04:00 10/15/17 07:36 Temperature 97.8 F 98.2 F Pulse Rate 77 70 63 Respiratory Rate 16 16 13 Blood Pressure 154/93 H 126/75 Pulse Oximetry 97 98 10/15/17 08:00 10/15/17 11:56 10/15/17 12:00 Temperature 97.8 F 98.1 F Pulse Rate 98 H 98 H 80 Respiratory Rate 20 18 Blood Pressure 142/75 H 129/64 Pulse Oximetry 96 94 L 10/15/17 13:37 10/15/17 15:41 Temperature 98.2 F Pulse Rate 60 85 Respiratory Rate 13 Blood Pressure 109/87 Pulse Oximetry 96 Intake & Output 10/14/17 10/15/17 10/15/17 18:59 06:59 18:59 Intake Total 440 / 440 150 / 150 Output Total 50 / 50 500 / 500 Balance 390 / 390 -350 / -350 Weight 68.3 kg Intake: IV 200 / 200 150 / 150 Cipro 400 MG/200 ML Inj 400 mg 200 / 200 150 / 150 In 200 ml @ 200 mls/hr IV.SIG Q12H JASMINA Rx#:[id number] Oral 240 / 240 Output: Stool 50 / 50 Urine Amount (Stoma) 500 / 500 Pre-Hospital: Continent 500 / 500 Urostomy Other: Date of Last Bowel Movement 10/14/17 10/14/17 # Bowel Movements 4 1 Result Diagrams: 10/15/17 17:20 10/15/17 14:35 Laboratory Results: Laboratory Results - last 24 hr 10/14/17 10/14/17 10/14/17 13:00 19:20 21:55 Sodium Potassium Chloride Carbon Dioxide Anion Gap BUN Creatinine Estimated GFR POC Glucose 159 H Random Glucose Calcium Magnesium Urine Color Shakira Urine Clarity Hazy H Urine pH 7.0 Ur Specific [place] 1.012 Urine Protein 30 H Urine Glucose (UA) Negative Urine Ketones Negative Urine Occult Blood Negative Urine Nitrate Negative Urine Bilirubin Negative Urine Urobilinogen 4 or greater Ur Leukocyte Esterase Negative Urine RBC 2 Urine WBC 7 H Urine Bacteria Rare H Urine Mucus Few H Micro UA Comment Culture not ind Urine Culture Comments Culture not ind Stl C.difficile Tox PCR Negative St C. diff Tox Epid 027 Negative 10/15/17 10/15/17 10/15/17 10:14 14:35 15:22 Sodium 140 Potassium 3.7 Chloride 107 Carbon Dioxide 21.6 Anion Gap 11 BUN 25 H Creatinine 1.06 H Estimated GFR 49 L POC Glucose 177 H 212 H Random Glucose 196 H Calcium 7.9 L Magnesium 1.6 Urine Color Urine Clarity Urine pH Ur Specific [place] Urine Protein Urine Glucose (UA) Urine Ketones Urine Occult Blood Urine Nitrate Urine Bilirubin Urine Urobilinogen Ur Leukocyte Esterase Urine RBC Urine WBC Urine Bacteria Urine Mucus Micro UA Comment Urine Culture Comments Stl C.difficile Tox PCR St C. diff Tox Epid 027 Medications: Active Medications Generic Name Dose Route Start Last Admin Trade Name Freq PRN Reason Stop Dose Admin Albuterol 1 ampul 10/14/17 20:00 10/15/17 13:35 Duoneb Neb (Jasmina) NEB 1 ampul Q6HR WHILE AWAKE NEB JASMINA Administration Anastrozole 1 mg 10/10/17 09:00 10/15/17 10:04 Arimidex PO 1 mg DAILY JASMINA Administration Atenolol 50 mg 10/10/17 09:00 10/15/17 10:02 Tenormin PO 50 mg DAILY JASMINA Administration Benzonatate 100 mg 10/12/17 20:20 10/13/17 08:31 Tessalon Perles PO 100 mg Q8H PRN Administration COUGH Budesonide/Formoterol Fumarate 2 puff 10/09/17 15:00 10/15/17 13:02 Symbicort 160/4.5 Mcg Inh INH 2 puff DAILY JASMINA Administration Heparin Sodium (Porcine) 5,000 units 10/14/17 14:00 10/15/17 15:08 Heparin Inj SQ 5,000 units Q8HR JASMINA Administration Hydralazine HCl 25 mg 10/09/17 18:00 10/15/17 15:07 Apresoline PO 25 mg TID JASMINA Administration Insulin Aspart 0 unit 10/09/17 17:00 10/15/17 15:39 Novolog Insulin Correctional Sugar Inj SQ Not Given ACHS JASMINA Protocol Lactulose 30 ml 10/09/17 15:00 10/15/17 10:01 Lactulose Liq PO 30 ml DAILY PRN Administration SEVERE CONSITIPATION Lactulose 30 ml 10/13/17 12:15 10/15/17 10:02 Lactulose Liq PO 30 ml DAILY JASMINA Administration Levothyroxine Sodium 112 mcg 10/09/17 15:00 10/15/17 05:32 Synthroid PO 112 mcg DAILY@0600 JASMINA Administration Levothyroxine Sodium 25 mcg 10/09/17 15:00 10/15/17 05:32 Synthroid PO 25 mcg DAILY@0600 JASMINA Administration Montelukast Sodium 10 mg 10/09/17 21:00 10/14/17 21:56 Singulair PO 10 mg HS JASMINA Administration Morphine Sulfate 15 mg 10/10/17 07:56 10/15/17 15:07 Msir PO 15 mg Q6H PRN Administration PAIN 6-10 Morphine Sulfate 15 mg 10/14/17 21:00 10/14/17 21:56 Oramorph Sr PO 15 mg HS JASMINA Administration Octreotide Acetate 50 mcg 10/14/17 22:00 10/15/17 15:38 Sandostatin Inj IV.PUSH 50 mcg Q8HR JASMINA Administration Paroxetine HCl 30 mg 10/10/17 09:00 10/15/17 10:03 Paxil PO 30 mg DAILY JASMINA Administration Cyclosporine( 0 each 10/09/17 21:00 10/14/17 22:00 Restasis) 1 Drop To EACH EYE 1 each Each Eye Bid BID JASMINA Administration Potassium Chloride 10 meq 10/14/17 21:00 10/15/17 10:02 Klor-Con 10 PO 10 meq BID JASMINA Administration Prednisone 5 mg 10/09/17 15:00 10/15/17 10:03 Deltasone PO 5 mg BID JASMINA Administration Rifaximin 200 mg 10/10/17 14:00 10/15/17 15:07 Xifaxan PO 200 mg Q8HR JASMINA Administration Vitamin D 2,000 unit 10/10/17 09:00 10/15/17 10:04 Vitamin D3 PO 2,000 unit DAILY JASMINA Administration Warfarin Sodium 1 mg 10/13/17 16:00 10/14/17 16:14 Coumadin PO 1 mg DAILY@1600 JASMINA Administration Warfarin Sodium 1 mg 10/15/17 16:00 10/15/17 15:07 Coumadin PO 10/15/17 16:01 1 mg ONCE@1600 ONE Administration Objective Remarks: GENERAL: Elderly female patient, lying in bed, appears to be sleeping. SKIN: Warm and dry. Bilateral arms with petechiae rash. HEAD: Normocephalic. EYES: No scleral icterus. No injection or drainage. NECK: Supple, trachea midline. CARDIOVASCULAR: Regular rate and rhythm without murmurs. RESPIRATORY: Anterior breath sounds clear, equal bilaterally. No accessory muscle use. GASTROINTESTINAL: Abdomen soft, non-tender, nondistended. EXTREMITIES: No cyanosis. Bilateral arms with 1+ edema, petechiae/purpura rash. MUSCULOSKELETAL: Unable to assess. NEUROLOGICAL: Lethargic, does not awaken to verbal or soft stimuli. PSYCHIATRIC: Unable to evaluate at this time. 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 Her carcinoid syndrome has been stable for many years. Most recently she was noted to have increasing chromogranin A suggestive of worsening carcinoid syndrome. 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 She has had definitive surgery and is on adjuvant hormonal therapy. She was admitted with weakness confusion and hypotension. 1. Urine culture positive for Citrobacter freundii, sensitivity to ciprofloxacin. Pt continues on cipro. 2. INR pending today. Pt continues on SQ heparin until INR therapeutic. 3. Patient continues to remain lethargic. Family with concerns that the patient will go through withdraw if we do not continue her morphine. Palliative care has been consulted to help define goals and treatment plan with the patients family. We appreciate their input. 4. She continues with Sandostatin for carcinoid tumor. 5. Do not give sedative medications if the patient is lethargic. - Attending Statement The exam, history, and the medical decision-making described in the above note were completed with the assistance of the mid-level provider. I reviewed and agree with the findings presented. I attest that I had a [id number] encounter with the patient on the same day, and personally performed and documented my assessment and findings in the medical record. Patient seen and examined with daughter at bedside. She is brighter, more alert , more responsive. We discussed the option of rehab versus senior living facility. Mrs. Hill would like to go home anticipating the arrival of several other family members to help with her care at home. Diarrhea has improved. Appetite is good. She was able to sit and get out of bed several times today. Continue octreotide as planned. Discussed with primary team.
[2017-10-15 17:41] LABS: Hematocrit 28.5 % (35.0-46.0); Hemoglobin 9.4 gm/dL (11.6-15.3); Mean Corpuscular HGB Conc 32.9 % (32.0-36.0); Mean Corpuscular Hemoglobin 29.3 pg (27.0-34.0); Mean Platelet Volume 8.4 fL (7.0-11.0); Platelet Count 159 th/mm3 (150-450); Red Cell Distribution Width 17.3 % (11.6-17.2); White Blood Count 6.9 th/mm3 (4.0-11.0)
--- NOTE | 2017-10-15 18:39 | P.PNPL ---
Subjective Interval history: 87 YOWF with Carcinoid tr, Colon, breast ca, COPD Tired, lethargic Appetite improving Has mild congestion in the chest Physical Exam Vital signs: Vital Signs 10/14/17 20:00 10/14/17 20:27 10/15/17 00:00 Temperature 97.8 F 97.8 F Pulse Rate 85 88 77 Respiratory Rate 16 18 16 Blood Pressure 143/77 H 154/93 H Pulse Oximetry 98 97 10/15/17 04:00 10/15/17 07:36 10/15/17 08:00 Temperature 98.2 F 97.8 F Pulse Rate 70 63 98 H Respiratory Rate 16 13 20 Blood Pressure 126/75 142/75 H Pulse Oximetry 98 96 10/15/17 11:56 10/15/17 12:00 10/15/17 13:37 Temperature 98.1 F Pulse Rate 98 H 80 60 Respiratory Rate 18 13 Blood Pressure 129/64 Pulse Oximetry 94 L 10/15/17 15:41 Temperature 98.2 F Pulse Rate 85 Respiratory Rate Blood Pressure 109/87 Pulse Oximetry 96 Intake & Output 10/14/17 10/15/17 10/15/17 18:59 06:59 18:59 Intake Total 440 / 440 150 / 150 Output Total 50 / 50 500 / 500 Balance 390 / 390 -350 / -350 Weight 68.3 kg Intake: IV 200 / 200 150 / 150 Cipro 400 MG/200 ML Inj 400 mg 200 / 200 150 / 150 In 200 ml @ 200 mls/hr IV.SIG Q12H ARI Rx#:[id number] Oral 240 / 240 Output: Stool 50 / 50 Urine Amount (Stoma) 500 / 500 Pre-Hospital: Continent 500 / 500 Urostomy Other: Date of Last Bowel Movement 10/14/17 10/14/17 # Bowel Movements 4 1 GENERAL: Elderly WF, weak, SKIN: Warm and dry. HEAD: Normocephalic. EYES: No scleral icterus. No injection or drainage. NECK: Supple, trachea midline. No JVD or lymphadenopathy. CARDIOVASCULAR: Regular rate and rhythm without murmurs, gallops, or rubs. RESPIRATORY: Breath sounds equal bilaterally. No accessory muscle use. GASTROINTESTINAL: Abdomen soft, non-tender, nondistended. MUSCULOSKELETAL: No cyanosis, or edema. BACK: Nontender without obvious deformity. No CVA tenderness. Assessment and Plan - Plan IMPRESSION: COPD Pulm Congestion Encephalopathy Carcinoid Tr Ca Breast, colon PLAN: Aerosol Nebs Supplement 02 SQ heparin Monitor BS PO Prednisone
[2017-10-15] MEDS: CYCLOSPORINE EACH EYE SCH (20:18)
[2017-10-15] MEDS: Morphine Sulfate 15 MG SR Tablet PO SCH (21:50)
[2017-10-15] MEDS: Montelukast 10 MG Tablet PO SCH (21:50)
[2017-10-16 05:46] LABS: INR 1.3 Ratio; Prothrombin Time 13.6 sec (9.8-11.6)
[2017-10-16] MEDS: Heparin - SQ 10,000 UNITS/ML Vial SQ SCH ×3 (05:46→21:46)
[2017-10-16] MEDS: Levothyroxine 112 MCG Tablet PO SCH (05:46)
[2017-10-16] MEDS: Octreotide Inj 50 MCG/ML Vial IV.PUSH SCH ×3 (05:46→21:46)
[2017-10-16] MEDS: Atenolol 50 MG Tablet PO SCH (08:46)
[2017-10-16] MEDS: Anastrozole 1 MG Tablet PO SCH (08:46)
[2017-10-16] MEDS: hydrALAZINE 25 MG Tablet PO SCH ×3 (08:46→18:46)
[2017-10-16] MEDS: predniSONE 5 MG Tablet PO SCH ×2 (08:46→21:45)
[2017-10-16] MEDS: Budesonide-Formoterol 160/4.5 MCG 6 GM Inhaler INH SCH (08:47)
[2017-10-16] MEDS: CYCLOSPORINE EACH EYE SCH ×3 (08:50→22:51)
[2017-10-16] MEDS: Insulin NovoLOG Aspart Correctional Sugar Inj SQ SCH ×4 (08:55→22:53)
--- NOTE | 2017-10-16 09:55 | P.PNIM ---
Subjective Interval history: Patient is more awake today. She sat in the chair today. Back in bed. She reports she is feeling better. She is eating better. Physical Exam Vital signs: Vital Signs 10/15/17 11:56 10/15/17 12:00 10/15/17 13:37 Temperature 98.1 F Pulse Rate 98 H 80 60 Respiratory Rate 18 13 Blood Pressure 129/64 Pulse Oximetry 94 L 10/15/17 15:41 10/15/17 19:47 10/15/17 20:00 Temperature 98.2 F Pulse Rate 85 74 81 Respiratory Rate 17 18 Blood Pressure 109/87 119/67 Pulse Oximetry 96 97 10/16/17 00:00 10/16/17 04:00 10/16/17 07:22 Temperature 98.3 F 97.4 F L Pulse Rate 62 76 70 Respiratory Rate 18 18 16 Blood Pressure 120/65 128/66 Pulse Oximetry 97 97 Intake & Output 10/15/17 10/16/17 10/16/17 18:59 06:59 18:59 Output Total 300 / 300 Balance -300 / -300 Weight 68.1 kg Output: Urine Amount (Stoma) 300 / 300 Pre-Hospital: Continent 300 / 300 Urostomy Other: Date of Last Bowel Movement 10/15/17 Narrative: GENERAL: Patient is awake. Follow commands. CARDIOVASCULAR: Regular rate and rhythm without murmurs, gallops, or rubs. RESPIRATORY: Breath sounds equal bilaterally. No accessory muscle use. GASTROINTESTINAL: Abdomen soft, non-tender, nondistended. MUSCULOSKELETAL: No cyanosis,. Trace edema Neuro: Awake and alert. 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 Moves all extremities spontaneously. Results - Labs CBC & Chem 7: 10/15/17 17:20 10/15/17 14:35 Laboratory Results - last 24 hr 10/15/17 10/15/17 10/15/17 10:14 14:35 15:22 WBC RBC Hgb Hct MCV MCH MCHC RDW Plt Count MPV PT INR Sodium 140 Potassium 3.7 Chloride 107 Carbon Dioxide 21.6 Anion Gap 11 BUN 25 H Creatinine 1.06 H Estimated GFR 49 L POC Glucose 177 H 212 H Random Glucose 196 H Calcium 7.9 L Magnesium 1.6 Ammonia 10/15/17 10/15/17 10/16/17 17:20 20:20 05:25 WBC 6.9 RBC 3.20 L Hgb 9.4 L Hct 28.5 L MCV 89.0 MCH 29.3 MCHC 32.9 RDW 17.3 H Plt Count 159 MPV 8.4 PT INR Sodium Potassium Chloride Carbon Dioxide Anion Gap BUN Creatinine Estimated GFR POC Glucose 229 H Random Glucose Calcium Magnesium Ammonia 45 H 10/16/17 10/16/17 05:25 07:56 WBC RBC Hgb Hct MCV MCH MCHC RDW Plt Count MPV PT 13.6 H INR 1.3 Sodium Potassium Chloride Carbon Dioxide Anion Gap BUN Creatinine Estimated GFR POC Glucose 178 H Random Glucose Calcium Magnesium Ammonia Assessment and Plan - Assessment (1) Toxic metabolic encephalopathy Code(s): G92 - Toxic encephalopathy Status: Acute (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 Laps pending today Head CT noted and reviewed without any acute intracranial abnormalities. UTI may be contributing. Appreciate Neurology input. MRI neg. EEG pending. Encephalopathy waxing and waning but overall improved. Continue Lactulose and rifaximin to help with hyperammonemia. Recommend minimizing sedating medications. Discussed with family at length. Discussed with RN. Chronic pain syndrome: -Patient has been on long-acting morphine for years. However I suspect this is contributing to encephalopathy. -Dose was changed to long-acting morphine at night only and immediate release during the day as needed. Family very concerned that she will withdraw if she does not receive this medication. Acute UTI: Urine grew Citrobacter. pansensitive. - Switched from Aztreonam to Cipro. Completed treatment Hyperammonemia Liver ultrasound noted with no definite acute liver findings Continue rifaximin and lactulose. Improving. Recheck lab tomorrow. Transaminitis At baseline the patient has elevated LFTs more they are more elevated this admission Ultrasound noted Hold Statin Monitor LFTs Diarrhea: Intermittent. this may be due to carcinoid tumor Treatment with octreotide as per hematology. Appreciate assistance. History of carcinoid tumor octreotide subcu as per oncology. Diarrhea intermittent. Appreciate assistance Acute renal injury Prerenal, secondary to dehydration Continue with gentle IV fluid hydration and monitor BUN and creatinine Creatinine improved to baseline. Continue to monitor. Diabetes type 2 Hold oral hypoglycemic agent along with basal insulin until patient's appetite increased along with improvement of renal function insulin sliding scale with fingerstick blood glucose monitoring Hypertension Blood pressure acceptable. Continue to monitor. History of atrial fibrillation Currently in normal sinus rhythm Stable. Continue Coumadin and continue atenolol Pharmacy following for INR management. History of breast cancer Resume Arimidex GI prophylaxis: Stool softener PRN constipation. DVT PPx: On Coumadin. INR fluctuating. Discharge Planning: Patient and family agreeable to [facility] but declined SNF placement. PT to reevaluate and continue to work with her. 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
--- NOTE | 2017-10-16 16:08 | P.PNONC ---
Subjective Interval history: Patient seen early a.m. sitting in a chair at the side in bed. Daughter at bedside. She is awake alert fair appetite for breakfast. Objective Vital Signs/Intake & Output: Vital Signs 10/15/17 19:47 10/15/17 20:00 10/16/17 00:00 Temperature 98.3 F Pulse Rate 74 81 62 Respiratory Rate 17 18 18 Blood Pressure 119/67 120/65 Pulse Oximetry 97 97 10/16/17 04:00 10/16/17 07:22 10/16/17 07:54 Temperature 97.4 F L Pulse Rate 76 70 76 Respiratory Rate 18 16 Blood Pressure 128/66 Pulse Oximetry 97 10/16/17 08:00 10/16/17 12:17 Temperature 97.8 F 97.7 F Pulse Rate 67 67 Respiratory Rate 16 16 Blood Pressure 148/72 H 146/76 H Pulse Oximetry 98 95 Intake & Output 10/15/17 10/16/17 10/16/17 18:59 06:59 18:59 Output Total 300 / 300 Balance -300 / -300 Weight 68.1 kg Output: Urine Amount (Stoma) 300 / 300 Pre-Hospital: Continent 300 / 300 Urostomy Other: Date of Last Bowel Movement 10/15/17 10/15/17 Result Diagrams: 10/15/17 17:20 10/15/17 14:35 Laboratory Results: Laboratory Results - last 24 hr 10/15/17 10/15/17 10/16/17 17:20 20:20 05:25 WBC 6.9 RBC 3.20 L Hgb 9.4 L Hct 28.5 L MCV 89.0 MCH 29.3 MCHC 32.9 RDW 17.3 H Plt Count 159 MPV 8.4 PT INR POC Glucose 229 H Ammonia 45 H 10/16/17 10/16/17 10/16/17 05:25 07:56 12:16 WBC RBC Hgb Hct MCV MCH MCHC RDW Plt Count MPV PT 13.6 H INR 1.3 POC Glucose 178 H 229 H Ammonia Medications: Active Medications Generic Name Dose Route Start Last Admin Trade Name Freq PRN Reason Stop Dose Admin Albuterol 1 ampul 10/14/17 20:00 10/16/17 07:21 Duoneb Neb (Jasmina) NEB 1 ampul Q6HR WHILE AWAKE NEB JASMINA Administration Anastrozole 1 mg 10/10/17 09:00 10/16/17 08:46 Arimidex PO 1 mg DAILY JASMINA Administration Atenolol 50 mg 10/10/17 09:00 10/16/17 08:46 Tenormin PO 50 mg DAILY JASMINA Administration Benzonatate 100 mg 10/12/17 20:20 10/13/17 08:31 Tessalon Perles PO 100 mg Q8H PRN Administration COUGH Budesonide/Formoterol Fumarate 2 puff 10/09/17 15:00 10/16/17 08:47 Symbicort 160/4.5 Mcg Inh INH 2 puff DAILY JASMINA Administration Heparin Sodium (Porcine) 5,000 units 10/14/17 14:00 10/16/17 13:22 Heparin Inj SQ 5,000 units Q8HR JASMINA Administration Hydralazine HCl 25 mg 10/09/17 18:00 10/16/17 12:24 Apresoline PO 25 mg TID JASMINA Administration Insulin Aspart 0 unit 10/09/17 17:00 10/16/17 12:24 Novolog Insulin Correctional Sugar Inj SQ 3 unit ACHS JASMINA Administration Protocol Lactulose 30 ml 10/09/17 15:00 10/15/17 10:01 Lactulose Liq PO 30 ml DAILY PRN Administration SEVERE CONSITIPATION Lactulose 30 ml 10/13/17 12:15 10/16/17 08:45 Lactulose Liq PO 30 ml DAILY JASMINA Administration Levothyroxine Sodium 112 mcg 10/09/17 15:00 10/16/17 05:46 Synthroid PO 112 mcg DAILY@0600 JASMINA Administration Levothyroxine Sodium 25 mcg 10/09/17 15:00 10/16/17 05:46 Synthroid PO 25 mcg DAILY@0600 JASMINA Administration Montelukast Sodium 10 mg 10/09/17 21:00 10/15/17 21:50 Singulair PO 10 mg HS JASMINA Administration Morphine Sulfate 15 mg 10/10/17 07:56 10/15/17 15:07 Msir PO 15 mg Q6H PRN Administration PAIN 6-10 Morphine Sulfate 15 mg 10/14/17 21:00 10/15/17 21:50 Oramorph Sr PO 15 mg HS JASMINA Administration Octreotide Acetate 50 mcg 10/14/17 22:00 10/16/17 13:24 Sandostatin Inj IV.PUSH 50 mcg Q8HR JASMINA Administration Paroxetine HCl 30 mg 10/10/17 09:00 10/16/17 08:46 Paxil PO 30 mg DAILY JASMINA Administration Cyclosporine( 0 each 10/09/17 21:00 10/16/17 08:50 Restasis) 1 Drop To EACH EYE 1 each Each Eye Bid BID JASMINA Administration Potassium Chloride 10 meq 10/14/17 21:00 10/16/17 08:46 Klor-Con 10 PO 10 meq BID JASMINA Administration Prednisone 5 mg 10/09/17 15:00 10/16/17 08:46 Deltasone PO 5 mg BID JASMINA Administration Rifaximin 200 mg 10/10/17 14:00 10/16/17 13:22 Xifaxan PO 200 mg Q8HR JASMINA Administration Vitamin D 2,000 unit 10/10/17 09:00 10/16/17 08:45 Vitamin D3 PO 2,000 unit DAILY JASMINA Administration Warfarin Sodium 1 mg 10/13/17 16:00 10/15/17 20:17 Coumadin PO 1 mg DAILY@1600 JASMINA Administration Objective Remarks: GENERAL: Elderly woman with cushingoid appearance, well-developed patient. SKIN: Warm and dry. Bilateral upper extremity senile purpura. Steroid skin atrophy. HEAD: Normocephalic. EYES: No scleral icterus. No injection or drainage. NECK: Supple, trachea midline. No JVD or lymphadenopathy. LYMPHATIC: No adenopathy. CARDIOVASCULAR: Regular rate and rhythm without murmurs. RESPIRATORY: Breath sounds equal bilaterally. No accessory muscle use. GASTROINTESTINAL: Abdomen soft, non-tender, nondistended. EXTREMITIES: No cyanosis, or trace edema. MUSCULOSKELETAL: Adequate muscle tone. NEUROLOGICAL: No obvious focal deficit. Awake, alert, and oriented x3. 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 Her carcinoid syndrome has been stable for many years. Most recently she was noted to have increasing chromogranin A suggestive of worsening carcinoid syndrome. 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 She has had definitive surgery and is on adjuvant hormonal therapy. She was admitted with weakness confusion and hypotension. Decompensation after urinary tract infection not treated, diarrhea secondary carcinoid, subsequent dehydration. Encephalopathy resolving. Patient was placed on lactulose with decreasing ammonia level. Clinically improving. Less lethargic every day. We discussed continued management with the carcinoid with octreotide. Short acting octreotide is used in the inpatient setting. Consider stopping when diarrhea resolved. Anticipate using long-acting octreotide in the outpatient setting. Discussed the option of rehab versus prison facility. Patient is consider going home. I defer ultimately to primary team for placement. Patient may follow-up in outpatient basis for the carcinoid and the breast cancer. Arimidex is continued without event. Repeat MRI was negative for recurrent stroke. She continues on anticoagulant therapy. Her Coumadin dose has been difficult to titrate on outpatient basis. Her pain is being addressed by palliative care. Adjustments have made her more alert and awake during the day. Oncology will follow peripherally. Anticipate her follow-up on an outpatient basis.
--- NOTE | 2017-10-16 16:54 | P.PNPAL ---
Reason for Visit Reason for visit: a. To assist with evaluation and management of symptoms including: pain, confusion, diarrhea b. To assist medical decision maker(s) with: better understanding of current medical conditions; weighing benefits/burdens of medical treatment options; making medical treatment decisions. Subjective Subjective/Interval History: LATE entry, pt seen earlier at 1500 Stable overnight. More alert today, participated w PT. Evaluated by [facility] , not candidate, CM notes that dtr has requested re-eval in a few days given pt has become more alert today. No new labs or imaging. Reported to have improved appetite today per friend/caregiver staying with her. Required 1 dose short acting MS IR yesterday, none yet today. Seen in room, friend/caregiver at bedside. Pt is alert, oriented to self, family , hospital, some medical conditions. Does not have full insight into medical conditions/hospital course. She is cooperative. Review w her [facility] evaluation, she tells me she was at [facility] before and she does not need to go there again she can go home and be cared for with her daughter. Gently explore with her that her care needs may be a little bit increased right now she is a bit fragile and debilitated with her current acute issues. She indicates her daughter has been taking care of her for some time and that she can return home to that setting, she does not appear to have full insight to her needs. Advised that her daughter might need hired caregivers in addition to home health at home. Explore that she was not currently ready to for discharge today but that her needs would be reassessed ongoingthat if SNF was the safest discharge versus home health those recommendations would be made. her daughter has gone to the airport to chart picker another family member arriving in town she will be returning later. Advised I would call her, contact information left again at bedside. She endorses mild shortness of breath. She denies GI complaints. She does endorse coughing episode with eating earlier. She does have a known history of esophageal stricture so possible this could be related to that or there could be some underlying aspiration which would be concerning. She indicates her pain is about the same not really any better not really any worse. She has not used any pain medication today, she tells me that she tries to not use it unless she absolutely has to. In general she indicates she is feeling comfortable, better than she was yesterday. --- Later call to daughter Alisa updated her on current condition, assessment. Alisa indicates other daughters will be arriving later tonight and tomorrow and she may desire palliative follow-up with all of them tomorrow or Friday. Review with her current assessment and [facility] evaluation, the patient may still require placement at other SNF. Alisa indicates patient and her are still very hopeful that she might improve enough to go home where she can continue to care for her. Goals remain aggressive. Gently explore that her care needs may exceed what she is able to do at home though she feels confident the patient might continue to improve and she may be able to care for her. She requests that the patient not be discharged over the weekend because she feels she is not ready yet advised that the medical attending follows all of her diagnostics , conditions and ultimately determines when discharge is safe and appropriate from a medical standpoint. She tells me she spoke to medical attending earlier today and that this weekend. Advised that evaluation for discharge would be ongoing patient was safe for discharge that would be recommended. d/w medical attending Dr Canela, d/c primary RN . Objective Vital Signs: Vital Signs 10/15/17 19:47 10/15/17 20:00 10/16/17 00:00 Temperature 98.3 F Pulse Rate 74 81 62 Respiratory Rate 17 18 18 Blood Pressure 119/67 120/65 Pulse Oximetry 97 97 10/16/17 04:00 10/16/17 07:22 10/16/17 07:54 Temperature 97.4 F L Pulse Rate 76 70 76 Respiratory Rate 18 16 Blood Pressure 128/66 Pulse Oximetry 97 10/16/17 08:00 10/16/17 12:17 Temperature 97.8 F 97.7 F Pulse Rate 67 67 Respiratory Rate 16 16 Blood Pressure 148/72 H 146/76 H Pulse Oximetry 98 95 Intake & Output 10/15/17 10/16/17 10/16/17 18:59 06:59 18:59 Output Total 300 / 300 Balance -300 / -300 Weight 68.1 kg Output: Urine Amount (Stoma) 300 / 300 Pre-Hospital: Continent 300 / 300 Urostomy Other: Date of Last Bowel Movement 10/15/17 10/15/17 Physical Exam: CONSTITUTIONAL/GENERAL: This is an adequately nourished patient, more alert today, ill-appearing. TUBES/LINES/DRAINS: Peripheral IV upper extremity, SCDs, urostomy SKIN: No jaundice, rashes, or lesions. Ecchymoses on upper extremities, L> R. No wounds seen anteriorly. Skin warm, dry. Pale. CARDIOVASCULAR: Regular rate and rhythm without murmur. No JVD. Peripheral pulses symmetric.trace periph edema RESPIRATORY/CHEST: Symmetric, unlabored respirations. Clear to auscultation, diminished to bases. Breath sounds equal bilaterally. GASTROINTESTINAL: Abdomen soft, non-tender, nondistended. No hepato-splenomegaly , or palpable masses. + Urostomy present. No guarding. Bowel sounds present. GENITOURINARY: Without palpable bladder distension. urostomy draining dark yellow urine. MUSCULOSKELETAL: Extremities without clubbing, cyanosis. trace periph edema. No joint tenderness or effusion noted. No calf tenderness. No mottling or clubbing. NEUROLOGICAL: More alert today oriented 3. Fairly limited insight into overall conditions and course. Moving all 4 extremities with generalized weakness. Cooperative, pleasant PSYCHIATRIC: No evident anxiety, depression or hallucination Diagnostic Tests Laboratory: Laboratory Results - last 72 hr 10/13/17 10/14/17 10/14/17 21:29 07:45 07:45 WBC 9.8 RBC 3.86 L Hgb 11.2 L Hct 34.2 L MCV 88.7 D MCH 29.2 MCHC 32.9 RDW 17.4 H Plt Count 214 MPV 8.1 PT 13.8 H INR 1.4 Sodium Potassium Chloride Carbon Dioxide Anion Gap BUN Creatinine Estimated GFR POC Glucose 164 H Random Glucose Calcium Magnesium Ammonia Urine Color Urine Clarity Urine pH Ur Specific [place] Urine Protein Urine Glucose (UA) Urine Ketones Urine Occult Blood Urine Nitrate Urine Bilirubin Urine Urobilinogen Ur Leukocyte Esterase Urine RBC Urine WBC Urine Bacteria Urine Mucus Micro UA Comment Urine Culture Comments Stl C.difficile Tox PCR St C. diff Tox Epid 027 10/14/17 10/14/17 10/14/17 07:45 07:45 11:40 WBC RBC Hgb Hct MCV MCH MCHC RDW Plt Count MPV PT INR Sodium 139 Potassium 3.2 L Chloride 105 Carbon Dioxide 23.7 Anion Gap 10 BUN 19 H Creatinine 0.81 Estimated GFR 67 L POC Glucose Random Glucose 143 H Calcium 7.9 L Magnesium 1.6 Ammonia 60 H Urine Color Urine Clarity Urine pH Ur Specific [place] Urine Protein Urine Glucose (UA) Urine Ketones Urine Occult Blood Urine Nitrate Urine Bilirubin Urine Urobilinogen Ur Leukocyte Esterase Urine RBC Urine WBC Urine Bacteria Urine Mucus Micro UA Comment Urine Culture Comments Stl C.difficile Tox PCR St C. diff Tox Epid 027 10/14/17 10/14/17 10/14/17 13:00 13:00 19:20 WBC RBC Hgb Hct MCV MCH MCHC RDW Plt Count MPV PT INR Sodium Potassium Chloride Carbon Dioxide Anion Gap BUN Creatinine Estimated GFR POC Glucose 178 H Random Glucose Calcium Magnesium Ammonia Urine Color Shakira Urine Clarity Hazy H Urine pH 7.0 Ur Specific [place] 1.012 Urine Protein 30 H Urine Glucose (UA) Negative Urine Ketones Negative Urine Occult Blood Negative Urine Nitrate Negative Urine Bilirubin Negative Urine Urobilinogen 4 or greater Ur Leukocyte Esterase Negative Urine RBC 2 Urine WBC 7 H Urine Bacteria Rare H Urine Mucus Few H Micro UA Comment Culture not ind Urine Culture Comments Culture not ind Stl C.difficile Tox PCR Negative St C. diff Tox Epid 027 Negative 10/14/17 10/15/17 10/15/17 21:55 10:14 14:35 WBC RBC Hgb Hct MCV MCH MCHC RDW Plt Count MPV PT INR Sodium 140 Potassium 3.7 Chloride 107 Carbon Dioxide 21.6 Anion Gap 11 BUN 25 H Creatinine 1.06 H Estimated GFR 49 L POC Glucose 159 H 177 H Random Glucose 196 H Calcium 7.9 L Magnesium 1.6 Ammonia Urine Color Urine Clarity Urine pH Ur Specific [place] Urine Protein Urine Glucose (UA) Urine Ketones Urine Occult Blood Urine Nitrate Urine Bilirubin Urine Urobilinogen Ur Leukocyte Esterase Urine RBC Urine WBC Urine Bacteria Urine Mucus Micro UA Comment Urine Culture Comments Stl C.difficile Tox PCR St C. diff Tox Epid 027 10/15/17 10/15/17 10/15/17 15:22 17:20 20:20 WBC 6.9 RBC 3.20 L Hgb 9.4 L Hct 28.5 L MCV 89.0 MCH 29.3 MCHC 32.9 RDW 17.3 H Plt Count 159 MPV 8.4 PT INR Sodium Potassium Chloride Carbon Dioxide Anion Gap BUN Creatinine Estimated GFR POC Glucose 212 H 229 H Random Glucose Calcium Magnesium Ammonia Urine Color Urine Clarity Urine pH Ur Specific [place] Urine Protein Urine Glucose (UA) Urine Ketones Urine Occult Blood Urine Nitrate Urine Bilirubin Urine Urobilinogen Ur Leukocyte Esterase Urine RBC Urine WBC Urine Bacteria Urine Mucus Micro UA Comment Urine Culture Comments Stl C.difficile Tox PCR St C. diff Tox Epid 027 10/16/17 10/16/17 10/16/17 05:25 05:25 07:56 WBC RBC Hgb Hct MCV MCH MCHC RDW Plt Count MPV PT 13.6 H INR 1.3 Sodium Potassium Chloride Carbon Dioxide Anion Gap BUN Creatinine Estimated GFR POC Glucose 178 H Random Glucose Calcium Magnesium Ammonia 45 H Urine Color Urine Clarity Urine pH Ur Specific [place] Urine Protein Urine Glucose (UA) Urine Ketones Urine Occult Blood Urine Nitrate Urine Bilirubin Urine Urobilinogen Ur Leukocyte Esterase Urine RBC Urine WBC Urine Bacteria Urine Mucus Micro UA Comment Urine Culture Comments Stl C.difficile Tox PCR St C. diff Tox Epid 027 10/16/17 12:16 WBC RBC Hgb Hct MCV MCH MCHC RDW Plt Count MPV PT INR Sodium Potassium Chloride Carbon Dioxide Anion Gap BUN Creatinine Estimated GFR POC Glucose 229 H Random Glucose Calcium Magnesium Ammonia Urine Color Urine Clarity Urine pH Ur Specific [place] Urine Protein Urine Glucose (UA) Urine Ketones Urine Occult Blood Urine Nitrate Urine Bilirubin Urine Urobilinogen Ur Leukocyte Esterase Urine RBC Urine WBC Urine Bacteria Urine Mucus Micro UA Comment Urine Culture Comments Stl C.difficile Tox PCR St C. diff Tox Epid 027 Result Diagrams: 10/15/17 17:20 10/15/17 14:35 Assessment and Plan - Disease Oriented Problem List (1) Carcinoid tumor (2) Asthma (3) CAD (coronary artery disease) (4) Anxiety (5) Chronic pain (6) CVA (cerebral vascular accident) (7) Breast cancer (8) Hyperlipemia (9) Neuroendocrine carcinoma (10) ARF (acute renal failure) (11) Hyperammonemia (12) Diabetes Pertinent Non-Medical Issues: Psychosocial: . Supported by 5 adult children. Lives with her daughter Alisa cooley who is her healthcare surrogate. Originally from outside of [place] area. 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 Sustained a back injury during her work that led to long-term back pain and some disability. 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 Multifactorial. Not able to make her own informed decisions. Daughter Alisa is designated healthcare surrogate. Ethical issues impacting care: No ethical issues identified Important Contacts: kaela Lew [phone] Prognosis: This 87-year-old patient was admitted for weakness, diarrhea. She has complicated medical history, multiple chronic comorbidities. She has underlying breast cancer which has been stable. 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 She has had ongoing issues with diarrhea, dehydration, oral intake. She is having altered mental status likely multifactorial. She is actively being treated for UTI. Given these multiple issues she is very high risk for continued decline even with ongoing aggressive treatments. Does not appear any individual process is terminal at this moment however combining these multiple factors she likely has limited life expectancy, and would be appropriate for hospice if goals were comfort oriented. Code Status: Full Code Plan: Legal decision maker: Patient here with altered mental status. Multifactorial. Not able to make her own informed decisions. Daughter Alisa is designated healthcare surrogate. Goals: Daughter is tearful though appears to understand patient's overall conditions at this time she indicates her mother is a fighter, and would want to continue to do everything possible to try to restore her to her most recent baseline status and overall fair health. Daughter indicates the cancer processes had been very well maintained she is very hopeful that if these other acute issues can be resolved patient can return to her baseline. She understands the patient is very high risk for continued decline and complication. She will discuss CODE STATUS further with her siblings, but thinks her mother would want DNR, full code for now by default. Not interested in hospice at this time. CODE STATUS: Full code SYMPTOMS: --Confusion-multifactorial. Patient admitted with the hydration, acute renal , UTI. Reported with some some underlying baseline mild confusion and cognitive changes possible she may have early dementia as well which is compounded by multiple medical issues. Daughter indicates significant improvement in the past several days. cautious increase of opiates 2/2 to concern for neuro status --pain- pt with chronic pain x 30+ years r/t back injury as a nurse. She has been on long-acting morphine at her current dose for many years generally well maintained on this though still with some pain had been on the long-acting morphine scheduled twice a day at home and used the short acting as needed during the day maybe 2 times per day. She also has had chronic arthritic right knee pain reported "bone on bone "and not a candidate for knee replacement at this point was supposed to actually be seeing or throat next week for possible injections. Very important to family to maximize her pain relief though I have explored with them difficulty balancing pain relief with sedation, especially in the presence of aggressive goals and avoidance of further neurological or respiratory compromise. She is not opiate naive. At this point recommend continued long-acting morphine at bedtime dosing; with short acting 15mg as needed. Daughter is amenable to decreasing short acting dose to try to increase alertness during the day. May not come in tablet < 15mg, however could consider 10mg PO in liquid form if available. Patient has not required any short acting morphine today. Required 1 dose yesterday. Would not warrant increase in scheduled regimen as of yet given desire to promote alertness as well as pain relief. 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 Has been on octreotide per oncology. Expected to be on octreotide long-term. However now requiring lactulose for elevated ammonia. Overall stools improving per daughter's report softer, more formed. Palliative care will continue to follow during hospital course as condition evolves, to assist patient/decision-maker with understanding of medical conditions, weighing benefits/burdens of treatment options, for clarification of goals of treatment. Additionally will assist with any symptoms of palliative concern Attestation Attestation: To help prompt me to consider important information that might be impacting today's encounter and assessment, information from prior notes written by myself or my colleagues may have been "brought forward" into today's note. My signature on this note, however, is an attestation that I personally performed the exam, history, and/or decision-making noted today, and, unless otherwise indicated, the interactions with patient, family, and staff as well as the review of records all occurred today. I also attest that the listed assessment and stated plan reflect my best clinical judgment today based on the combination of historical information, prior notes, and today's exam/ interactions. When time spent is documented, it refers only to time spent today by the signer, or if indicated, combined time spent today by collaborating physician/nurse practitioner.
--- NOTE | 2017-10-16 18:00 | P.PNPL ---
Subjective Interval history: 87 YOWF with Carcinoid tr, Colon, breast ca, COPD Appetite improving Has mild congestion in the chest More awake has coughing spells Physical Exam Vital signs: Vital Signs 10/15/17 19:47 10/15/17 20:00 10/16/17 00:00 Temperature 98.3 F Pulse Rate 74 81 62 Respiratory Rate 17 18 18 Blood Pressure 119/67 120/65 Pulse Oximetry 97 97 10/16/17 04:00 10/16/17 07:22 10/16/17 07:54 Temperature 97.4 F L Pulse Rate 76 70 76 Respiratory Rate 18 16 Blood Pressure 128/66 Pulse Oximetry 97 10/16/17 08:00 10/16/17 12:17 Temperature 97.8 F 97.7 F Pulse Rate 67 67 Respiratory Rate 16 16 Blood Pressure 148/72 H 146/76 H Pulse Oximetry 98 95 Intake & Output 10/15/17 10/16/17 10/16/17 18:59 06:59 18:59 Output Total 300 / 300 Balance -300 / -300 Weight 68.1 kg Output: Urine Amount (Stoma) 300 / 300 Pre-Hospital: Continent 300 / 300 Urostomy Other: Date of Last Bowel Movement 10/15/17 10/15/17 GENERAL: Elderly Wf, NAd SKIN: Warm and dry. HEAD: Normocephalic. EYES: No scleral icterus. No injection or drainage. NECK: Supple, trachea midline. No JVD or lymphadenopathy. CARDIOVASCULAR: Regular rate and rhythm without murmurs, gallops, or rubs. RESPIRATORY: Breath sounds equal bilaterally. No accessory muscle use. Scattered rales. GASTROINTESTINAL: Abdomen soft, non-tender, nondistended. MUSCULOSKELETAL: No cyanosis, or edema. BACK: Nontender without obvious deformity. No CVA tenderness. Assessment and Plan - Plan IMPRESSION: COPD Pulm Congestion Encephalopathy Carcinoid Tr Ca Breast, colon PLAN: Aerosol Nebs q 6 hrs while awke Supplement 02 SQ heparin Monitor BS PO Prednisone DW Daughter at BS
[2017-10-16] MEDS: Montelukast 10 MG Tablet PO SCH (21:45)
[2017-10-16] MEDS: Morphine Sulfate 15 MG SR Tablet PO SCH (21:45)
[2017-10-17] MEDS: Heparin - SQ 10,000 UNITS/ML Vial SQ SCH ×3 (05:41→23:23)
[2017-10-17] MEDS: Octreotide Inj 50 MCG/ML Vial IV.PUSH SCH ×2 (05:42→14:37)
[2017-10-17] MEDS: Levothyroxine 112 MCG Tablet PO SCH (05:44)
[2017-10-17 06:23] LABS: Hematocrit 36.6 % (35.0-46.0); Hemoglobin 11.8 gm/dL (11.6-15.3); Mean Corpuscular HGB Conc 32.1 % (32.0-36.0); Mean Corpuscular Volume 90.3 fL (80.0-100.0); Mean Platelet Volume 8.1 fL (7.0-11.0); Platelet Count 206 th/mm3 (150-450); Red Blood Count 4.05 mil/mm3 (4.00-5.30)
[2017-10-17 06:32] LABS: INR 1.9 Ratio; Prothrombin Time 18.8 sec (9.8-11.6)
[2017-10-17 06:48] LABS: Total Protein 5.8 g/dL (6.4-8.2)
[2017-10-17 07:39] LABS: Albumin 2.5 g/dL (3.4-5.0); Calcium 8.1 mg/dL (8.5-10.1); Carbon Dioxide 23.7 meq/L (21.0-32.0)
[2017-10-17] MEDS: Budesonide-Formoterol 160/4.5 MCG 6 GM Inhaler INH SCH (09:30)
[2017-10-17] MEDS: Insulin NovoLOG Aspart Correctional Sugar Inj SQ SCH ×3 (09:30→19:20)
[2017-10-17] MEDS: hydrALAZINE 25 MG Tablet PO SCH ×3 (09:31→17:22)
[2017-10-17] MEDS: Atenolol 50 MG Tablet PO SCH (09:32)
[2017-10-17] MEDS: predniSONE 5 MG Tablet PO SCH ×2 (09:32→23:24)
[2017-10-17] MEDS: Anastrozole 1 MG Tablet PO SCH (09:32)
[2017-10-17] MEDS: CYCLOSPORINE EACH EYE SCH ×2 (09:34→23:28)
--- NOTE | 2017-10-17 12:20 | P.PN ---
Subjective Interval history: Follow-up encephalopathy/hyperammonemia October 17, 2017-patient seen and examined she was having breakfast alert and oriented 2. Daughter by the bedside. Physical Exam Vital signs: Vital Signs 10/16/17 12:17 10/16/17 17:50 10/16/17 19:00 Temperature 97.7 F 98.5 F Pulse Rate 67 74 93 H Respiratory Rate 16 16 18 Blood Pressure 146/76 H 113/77 Pulse Oximetry 95 98 10/16/17 20:00 10/17/17 00:00 10/17/17 04:00 Temperature 97.7 F 99.0 F 98.2 F Pulse Rate 76 73 79 Respiratory Rate 16 16 16 Blood Pressure 157/92 H 155/58 H 148/83 H Pulse Oximetry 99 98 98 10/17/17 07:43 10/17/17 09:21 Temperature 98.0 F Pulse Rate 79 82 Respiratory Rate 16 16 Blood Pressure 144/75 H Pulse Oximetry 95 Intake & Output 10/16/17 10/17/17 10/17/17 18:59 06:59 18:59 Intake Total 240 / 240 240 / 240 Output Total 250 / 250 550 / 550 Balance -10 / -10 -310 / -310 Weight 68.1 kg Intake: Oral 240 / 240 240 / 240 Output: Urine 250 / 250 550 / 550 Other: Date of Last Bowel Movement 10/16/17 10/16/17 10/17/17 # Bowel Movements 1 Narrative: GENERAL: NAD. CARDIOVASCULAR: Regular rate and rhythm without murmurs, gallops, or rubs. RESPIRATORY: Breath sounds equal bilaterally. No accessory muscle use. GASTROINTESTINAL: Abdomen soft, non-tender, nondistended. MUSCULOSKELETAL: No cyanosis,. Trace edema Neuro: Awake and alert. 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 Moves all extremities spontaneously. Results - Labs CBC & Chem 7: 10/17/17 06:03 10/17/17 06:03 Laboratory Results - last 24 hr 10/16/17 10/16/17 10/16/17 12:16 17:57 22:05 WBC RBC Hgb Hct MCV MCH MCHC RDW Plt Count MPV PT INR Sodium Potassium Chloride Carbon Dioxide Anion Gap BUN Creatinine Estimated GFR POC Glucose 229 H 226 H 159 H Random Glucose Calcium Total Bilirubin Direct Bilirubin Indirect Bilirubin AST ALT Alkaline Phosphatase Ammonia Total Protein Albumin 10/17/17 10/17/17 10/17/17 06:03 06:03 06:03 WBC 10.0 RBC 4.05 Hgb 11.8 D Hct 36.6 MCV 90.3 MCH 29.0 MCHC 32.1 RDW 18.0 H Plt Count 206 MPV 8.1 PT 18.8 H INR 1.9 Sodium Potassium Chloride Carbon Dioxide Anion Gap BUN Creatinine Estimated GFR POC Glucose Random Glucose Calcium Total Bilirubin Direct Bilirubin Indirect Bilirubin AST ALT Alkaline Phosphatase Ammonia 11 Total Protein Albumin 10/17/17 06:03 WBC RBC Hgb Hct MCV MCH MCHC RDW Plt Count MPV PT INR Sodium 140 Potassium 4.0 Chloride 107 Carbon Dioxide 23.7 Anion Gap 9 BUN 24 H Creatinine 1.00 Estimated GFR 53 L POC Glucose Random Glucose 159 H Calcium 8.1 L Total Bilirubin 1.1 H Direct Bilirubin 0.7 H Indirect Bilirubin 0.4 AST 81 H ALT 154 H Alkaline Phosphatase 468 H Ammonia Total Protein 5.8 L D Albumin 2.5 L Assessment and Plan - Assessment (1) Toxic metabolic encephalopathy Code(s): G92 - Toxic encephalopathy Status: Acute (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 MRI neg. EEG pending. Continue Lactulose and rifaximin Recommend minimizing sedating medications. Chronic pain syndrome: -Patient has been on long-acting morphine for years. -Dose was changed to long-acting morphine at night only and immediate release during the day as needed. Acute UTI: Urine grew Citrobacter. pansensitive. - Completed treatment Hyperammonemia Liver ultrasound noted with no definite acute liver findings Continue rifaximin and lactulose. Improving. Recheck lab tomorrow. Transaminitis At baseline the patient has elevated LFTs more they are more elevated this admission Ultrasound noted Hold Statin Monitor LFTs Diarrhea: Intermittent. this may be due to carcinoid tumor Treatment with octreotide as per hematology. Appreciate assistance. History of carcinoid tumor octreotide subcu as per oncology. Diarrhea intermittent. Appreciate assistance Acute renal injury Prerenal, secondary to dehydration Continue with gentle IV fluid hydration and monitor BUN and creatinine Creatinine improved to baseline. Continue to monitor. Diabetes type 2 Hold oral hypoglycemic agent along with basal insulin until patient's appetite increased along with improvement of renal function insulin sliding scale with fingerstick blood glucose monitoring Hypertension Blood pressure acceptable. Continue to monitor. History of atrial fibrillation Currently in normal sinus rhythm Stable. Continue Coumadin and continue atenolol History of breast cancer Continue Arimidex GI prophylaxis: Stool softener PRN constipation. DVT PPx: On Coumadin. INR fluctuating. (5) Diabetes Qualifiers: Diabetes mellitus type: type 2 Diabetes mellitus snf insulin use: with snf use Diabetes mellitus complication status: without complication Qualified Code(s): E11.9 - Type 2 diabetes mellitus without complications; Z79.4 - senior care (current) use of insulin
--- NOTE | 2017-10-17 17:35 | P.PNPL ---
Subjective Interval history: 87 YOWF with Carcinoid tr, Colon, breast ca, COPD Appetite improving Has mild congestion in the chest Alert, awake, follows commands Appetite better Physical Exam Vital signs: Vital Signs 10/16/17 17:50 10/16/17 19:00 10/16/17 20:00 Temperature 98.5 F 97.7 F Pulse Rate 74 93 H 76 Respiratory Rate 16 18 16 Blood Pressure 113/77 157/92 H Pulse Oximetry 98 99 10/17/17 00:00 10/17/17 04:00 10/17/17 07:43 Temperature 99.0 F 98.2 F Pulse Rate 73 79 79 Respiratory Rate 16 16 16 Blood Pressure 155/58 H 148/83 H Pulse Oximetry 98 98 10/17/17 09:21 10/17/17 12:25 10/17/17 17:29 Temperature 98.0 F 97.9 F 97.6 F Pulse Rate 82 64 68 Respiratory Rate 16 16 16 Blood Pressure 144/75 H 147/81 H 136/75 Pulse Oximetry 95 100 98 Intake & Output 10/16/17 10/17/17 10/17/17 18:59 06:59 18:59 Intake Total 240 / 240 240 / 240 Output Total 250 / 250 550 / 550 Balance -10 / -10 -310 / -310 Weight 68.1 kg Intake: Oral 240 / 240 240 / 240 Output: Urine 250 / 250 550 / 550 Other: Date of Last Bowel Movement 10/16/17 10/16/17 10/17/17 # Bowel Movements 1 GENERAL: Elderly WF, NAD SKIN: Warm and dry. HEAD: Normocephalic. EYES: No scleral icterus. No injection or drainage. NECK: Supple, trachea midline. No JVD or lymphadenopathy. CARDIOVASCULAR: Regular rate and rhythm without murmurs, gallops, or rubs. RESPIRATORY: Breath sounds equal bilaterally. No accessory muscle use. GASTROINTESTINAL: Abdomen soft, non-tender, nondistended. MUSCULOSKELETAL: No cyanosis, or edema. BACK: Nontender without obvious deformity. No CVA tenderness. Assessment and Plan - Plan IMPRESSION: COPD Pulm Congestion Encephalopathy Carcinoid Tr Ca Breast, colon PLAN: Aerosol Nebs q 6 hrs while awke Supplement 02 SQ heparin Monitor BS PO Prednisone DW Daughter at BSStable from Pulm standpoint Available prn over weekend
[2017-10-17] MEDS: Morphine Sulfate 15 MG SR Tablet PO SCH (23:23)
[2017-10-17] MEDS: Montelukast 10 MG Tablet PO SCH (23:26)
[2017-10-18] MEDS: Insulin NovoLOG Aspart Correctional Sugar Inj SQ SCH ×2 (03:42→11:13)
[2017-10-18] MEDS: Heparin - SQ 10,000 UNITS/ML Vial SQ SCH (08:38)
[2017-10-18] MEDS: Levothyroxine 112 MCG Tablet PO SCH (08:39)
[2017-10-18 09:03] LABS: Baso # (Auto) 0.1 th/mm3 (0.0-0.2); Baso % (Auto) 0.7 % (0.0-2.0); Eos # (Auto) 0.1 th/mm3 (0.0-0.4); Eos % (Auto) 1.1 % (0.0-4.0); Hematocrit 34.9 % (35.0-46.0); Hemoglobin 11.5 gm/dL (11.6-15.3); Lymph # (Auto) 1.7 th/mm3 (1.0-4.8); Lymph % (Auto) 15.7 % (9.0-44.0); Mean Corpuscular HGB Conc 32.9 % (32.0-36.0); Mean Corpuscular Hemoglobin 29.1 pg (27.0-34.0); Mean Corpuscular Volume 88.6 fL (80.0-100.0); Mean Platelet Volume 8.2 fL (7.0-11.0); Mono # (Auto) 0.9 th/mm3 (0.0-0.9); Mono % (Auto) 8.8 % (0.0-8.0); Neut # (Auto) 7.8 th/mm3 (1.8-7.7); Neut % (Auto) 73.7 % (16.0-70.0); Platelet Count 195 th/mm3 (150-450); Red Blood Count 3.94 mil/mm3 (4.00-5.30); Red Cell Distribution Width 17.6 % (11.6-17.2); White Blood Count 10.5 th/mm3 (4.0-11.0)
[2017-10-18 09:06] LABS: INR 2.8 Ratio; Prothrombin Time 28.1 sec (9.8-11.6)
[2017-10-18 09:14] LABS: Alanine Aminotransferase 126 U/L (10-53); Albumin 2.3 g/dL (3.4-5.0); Anion Gap 8 meq/L (5-15); Aspartate Aminotransferase 68 U/L (15-37); Blood Urea Nitrogen 26 mg/dL (7-18); Calcium 8.1 mg/dL (8.5-10.1); Carbon Dioxide 21.5 meq/L (21.0-32.0); Chloride 111 meq/L (98-107); Glomerular Filtration Rate 66 mL/min (>89); Glucose,Random 155 mg/dL (74-106); Potassium 4.5 meq/L (3.5-5.1); Sodium 140 meq/L (136-145)
[2017-10-18 09:17] LABS: Alkaline Phosphatase 468 U/L (45-117); Total Protein 5.6 g/dL (6.4-8.2)
[2017-10-18 09:20] VITALS: BP 130/65; PULSE 85; RESP 20; TEMP 98; O2SAT 95
--- NOTE | 2017-10-18 10:36 | P.PN ---
Subjective Interval history: Follow-up encephalopathy/hyperammonemia October 17, 2017-patient seen and examined she was having breakfast alert and oriented 2. Daughter by the bedside. October 18, 2017-patient seen and examined, alert and oriented 2, no acute event overnight. Ready for discharge to [place]. Physical Exam Vital signs: Vital Signs 10/17/17 12:00 10/17/17 12:25 10/17/17 16:00 Temperature 97.9 F Pulse Rate 68 64 68 Respiratory Rate 16 Blood Pressure 147/81 H Pulse Oximetry 100 10/17/17 17:29 10/17/17 20:00 10/17/17 23:45 Temperature 97.6 F 97.8 F Pulse Rate 68 75 Respiratory Rate 16 16 16 Blood Pressure 136/75 147/74 H Pulse Oximetry 98 92 L 10/18/17 00:00 10/18/17 04:00 10/18/17 08:36 Temperature 97.8 F 98.1 F Pulse Rate 80 86 86 Respiratory Rate 16 16 18 Blood Pressure 152/87 H 125/81 Pulse Oximetry 94 L 96 10/18/17 09:16 Temperature 98.0 F Pulse Rate 85 Respiratory Rate 20 Blood Pressure 130/65 Pulse Oximetry 95 Intake & Output 10/17/17 10/18/17 10/18/17 18:59 06:59 18:59 Output Total 200 / 200 350 / 350 Balance -200 / -200 -350 / -350 Weight 68.1 kg Output: Urine 200 / 200 Urine Amount (Stoma) 350 / 350 Pre-Hospital: Continent 350 / 350 Urostomy Other: Date of Last Bowel Movement 10/17/17 10/17/17 # Bowel Movements 2 Narrative: GENERAL: NAD. CARDIOVASCULAR: Regular rate and rhythm without murmurs, gallops, or rubs. RESPIRATORY: Breath sounds equal bilaterally. No accessory muscle use. GASTROINTESTINAL: Abdomen soft, non-tender, nondistended. MUSCULOSKELETAL: No cyanosis,. Trace edema Neuro: Awake and alert. 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 Moves all extremities spontaneously. Results - Labs CBC & Chem 7: 10/18/17 08:40 10/18/17 08:40 Laboratory Results - last 24 hr 10/17/17 10/17/17 10/17/17 08:29 12:08 17:20 WBC RBC Hgb Hct MCV MCH MCHC RDW Plt Count MPV Neut % (Auto) Lymph % (Auto) [place] % (Auto) Eos % (Auto) Baso % (Auto) Neut # (Auto) Lymph # (Auto) [place] # (Auto) Eos # (Auto) Baso # (Auto) WBC Differential Differential Comment PT INR Sodium Potassium Chloride Carbon Dioxide Anion Gap BUN Creatinine Estimated GFR POC Glucose 210 H 234 H 178 H Random Glucose Calcium Total Bilirubin AST ALT Alkaline Phosphatase Ammonia Total Protein Albumin 10/18/17 10/18/17 10/18/17 08:40 08:40 08:40 WBC 10.5 RBC 3.94 L Hgb 11.5 L Hct 34.9 L MCV 88.6 MCH 29.1 MCHC 32.9 RDW 17.6 H Plt Count 195 MPV 8.2 Neut % (Auto) 73.7 H Lymph % (Auto) 15.7 [place] % (Auto) 8.8 H Eos % (Auto) 1.1 Baso % (Auto) 0.7 Neut # (Auto) 7.8 H Lymph # (Auto) 1.7 [place] # (Auto) 0.9 Eos # (Auto) 0.1 Baso # (Auto) 0.1 WBC Differential . Differential Comment Auto diff final PT 28.1 H INR 2.8 Sodium 140 Potassium 4.5 Chloride 111 H Carbon Dioxide 21.5 Anion Gap 8 BUN 26 H Creatinine 0.82 Estimated GFR 66 L POC Glucose Random Glucose 155 H Calcium 8.1 L Total Bilirubin 1.0 AST 68 H ALT 126 H Alkaline Phosphatase 468 H Ammonia Total Protein 5.6 L Albumin 2.3 L 10/18/17 08:40 WBC RBC Hgb Hct MCV MCH MCHC RDW Plt Count MPV Neut % (Auto) Lymph % (Auto) [place] % (Auto) Eos % (Auto) Baso % (Auto) Neut # (Auto) Lymph # (Auto) [place] # (Auto) Eos # (Auto) Baso # (Auto) WBC Differential Differential Comment PT INR Sodium Potassium Chloride Carbon Dioxide Anion Gap BUN Creatinine Estimated GFR POC Glucose Random Glucose Calcium Total Bilirubin AST ALT Alkaline Phosphatase Ammonia 64 H Total Protein Albumin - Procedures None Assessment and Plan - Assessment (1) Toxic metabolic encephalopathy Code(s): G92 - Toxic encephalopathy Status: Acute (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 MRI neg. Continue Lactulose and rifaximin Recommend minimizing sedating medications. Chronic pain syndrome: -Patient has been on long-acting morphine for years. -Dose was changed to long-acting morphine at night only and immediate release during the day as needed. Acute UTI: Urine grew Citrobacter. pansensitive. - Completed treatment Hyperammonemia Liver ultrasound noted with no definite acute liver findings Continue rifaximin and lactulose. Improving. Transaminitis At baseline the patient has elevated LFTs more they are more elevated this admission Ultrasound noted Hold Statin Monitor LFTs Diarrhea: Intermittent. this may be due to carcinoid tumor Treatment with octreotide as per hematology. Appreciate assistance. History of carcinoid tumor octreotide subcu as per oncology. Diarrhea intermittent. Appreciate assistance Acute renal injury Prerenal, secondary to dehydration Continue with gentle IV fluid hydration and monitor BUN and creatinine Creatinine improved to baseline. Continue to monitor. Diabetes type 2 Hold oral hypoglycemic agent along with basal insulin until patient's appetite increased along with improvement of renal function insulin sliding scale with fingerstick blood glucose monitoring Hypertension Blood pressure acceptable. Continue to monitor. History of atrial fibrillation Currently in normal sinus rhythm Stable. Continue Coumadin and continue atenolol History of breast cancer Continue Arimidex GI prophylaxis: Stool softener PRN constipation. DVT PPx: On Coumadin. INR fluctuating. (5) Diabetes Qualifiers: Diabetes mellitus type: type 2 Diabetes mellitus jail insulin use: with jail use Diabetes mellitus complication status: without complication Qualified Code(s): E11.9 - Type 2 diabetes mellitus without complications; Z79.4 - [facility] (current) use of insulin
[2017-10-18] MEDS: predniSONE 5 MG Tablet PO SCH (10:38)
[2017-10-18] MEDS: Atenolol 50 MG Tablet PO SCH (10:39)
[2017-10-18] MEDS: hydrALAZINE 25 MG Tablet PO SCH (10:39)
[2017-10-18] MEDS: Anastrozole 1 MG Tablet PO SCH (10:40)
[2017-10-18] MEDS: Morphine Sulfate 15 MG IR Tablet PO PRN (10:40)
--- NOTE | 2017-10-18 10:47 | P.DS ---
Date of admission: 10/09/17 13:25 Primary care physician: Arnie Trevizo MD Anticipated date of discharge: 10/18/17 Brief History from admission: 87-year-old female for past medical history of carcinoid tumor, previous bladder cancer, breast cancer, colon cancer, lower extremity DVT, A. fib, diabetes was brought to the ED by family members for evaluation of an acute onset of altered mental status change along with 5 day history of worsening watery, loose stools as well as decrease urine output noted in the urostomy bag without any febrile episode. Patient is being currently followed by Dr. Meza , her oncologist. Family member at bedside providing most of the history DS: Diagnosis - Discharge Diagnosis (1) Toxic metabolic encephalopathy Status: Acute (2) Carcinoid tumor Status: Acute (3) ARF (acute renal failure) Status: Acute (4) Hyperammonemia Status: Acute (5) Diabetes Status: Acute DS: Summary Hospital Course: While in the hospital, the patient was treated for: Acute toxic and metabolic encephalopathy Multifactorial Improving Appreciate Neurology input. MRI neg. Continue Lactulose and rifaximin Recommend minimizing sedating medications. Chronic pain syndrome: -Patient has been on long-acting morphine for years. -Dose was changed to long-acting morphine at night only and immediate release during the day as needed. Acute UTI: Urine grew Citrobacter. pansensitive. - Completed treatment Hyperammonemia Liver ultrasound noted with no definite acute liver findings Continue rifaximin and lactulose. Improving. Transaminitis At baseline the patient has elevated LFTs more they are more elevated this admission Ultrasound noted Continue to Hold Statin Monitor LFTs Diarrhea: Intermittent. this may be due to carcinoid tumor Treatment with octreotide as per hematology. Appreciate assistance. History of carcinoid tumor octreotide subcu as per oncology. Diarrhea intermittent. Appreciate assistance Acute renal injury Prerenal, secondary to dehydration Continue with gentle IV fluid hydration and monitor BUN and creatinine Creatinine improved to baseline. Continue to monitor. Diabetes type 2 Hold oral hypoglycemic agent along with basal insulin until patient's appetite increased along with improvement of renal function. Okay to resume oral hyperglycemic agents insulin sliding scale with fingerstick blood glucose monitoring Hypertension Blood pressure acceptable. Continue to monitor. History of atrial fibrillation Currently in normal sinus rhythm Stable. Continue Coumadin and Atenolol History of breast cancer Continue Arimidex GI prophylaxis: Stool softener PRN constipation. DVT PPx: On Coumadin. INR fluctuating. - Time Spent with Patient Total time spent providing and/or coordinating discharge services: Greater than 30 minutes Exam Vital signs: Vital Signs 10/17/17 12:00 10/17/17 12:25 10/17/17 16:00 Temperature 97.9 F Pulse Rate 68 64 68 Respiratory Rate 16 Blood Pressure 147/81 H Pulse Oximetry 100 10/17/17 17:29 10/17/17 20:00 10/17/17 23:45 Temperature 97.6 F 97.8 F Pulse Rate 68 75 Respiratory Rate 16 16 16 Blood Pressure 136/75 147/74 H Pulse Oximetry 98 92 L 10/18/17 00:00 10/18/17 04:00 10/18/17 08:36 Temperature 97.8 F 98.1 F Pulse Rate 80 86 86 Respiratory Rate 16 16 18 Blood Pressure 152/87 H 125/81 Pulse Oximetry 94 L 96 10/18/17 09:16 Temperature 98.0 F Pulse Rate 85 Respiratory Rate 20 Blood Pressure 130/65 Pulse Oximetry 95 Intake & Output 10/17/17 10/18/17 10/18/17 18:59 06:59 18:59 Output Total 200 / 200 350 / 350 Balance -200 / -200 -350 / -350 Weight 68.1 kg Output: Urine 200 / 200 Urine Amount (Stoma) 350 / 350 Pre-Hospital: Continent 350 / 350 Urostomy Other: Date of Last Bowel Movement 10/17/17 10/17/17 # Bowel Movements 2 Narrative: GENERAL: NAD SKIN: Warm and dry. HEAD: Normocephalic. EYES: No scleral icterus. No injection or drainage. NECK: Supple, trachea midline. No JVD or lymphadenopathy. CARDIOVASCULAR: Regular rate and rhythm without murmurs, gallops, or rubs. RESPIRATORY: Breath sounds equal bilaterally. No accessory muscle use. GASTROINTESTINAL: Abdomen soft, non-tender, nondistended. MUSCULOSKELETAL: No cyanosis, or edema. BACK: Nontender without obvious deformity. No CVA tenderness. Results Procedures completed during hospitalization: None Labs on day of discharge: Labs from last 24 hours 10/18/17 10/18/17 10/18/17 08:40 08:40 08:40 WBC 10.5 RBC 3.94 L Hgb 11.5 L Hct 34.9 L MCV 88.6 MCH 29.1 MCHC 32.9 RDW 17.6 H Plt Count 195 MPV 8.2 Neut % (Auto) 73.7 H Lymph % (Auto) 15.7 [place] % (Auto) 8.8 H Eos % (Auto) 1.1 Baso % (Auto) 0.7 Neut # (Auto) 7.8 H Lymph # (Auto) 1.7 [place] # (Auto) 0.9 Eos # (Auto) 0.1 Baso # (Auto) 0.1 WBC Differential . Differential Comment Auto diff final PT INR Sodium 140 Potassium 4.5 Chloride 111 H Carbon Dioxide 21.5 Anion Gap 8 BUN 26 H Creatinine 0.82 Estimated GFR 66 L POC Glucose Random Glucose 155 H Calcium 8.1 L Total Bilirubin 1.0 AST 68 H ALT 126 H Alkaline Phosphatase 468 H Ammonia 64 H Total Protein 5.6 L Albumin 2.3 L 10/18/17 10/17/17 10/17/17 08:40 17:20 12:08 WBC RBC Hgb Hct MCV MCH MCHC RDW Plt Count MPV Neut % (Auto) Lymph % (Auto) [place] % (Auto) Eos % (Auto) Baso % (Auto) Neut # (Auto) Lymph # (Auto) [place] # (Auto) Eos # (Auto) Baso # (Auto) WBC Differential Differential Comment PT 28.1 H INR 2.8 Sodium Potassium Chloride Carbon Dioxide Anion Gap BUN Creatinine Estimated GFR POC Glucose 178 H 234 H Random Glucose Calcium Total Bilirubin AST ALT Alkaline Phosphatase Ammonia Total Protein Albumin 10/17/17 08:29 WBC RBC Hgb Hct MCV MCH MCHC RDW Plt Count MPV Neut % (Auto) Lymph % (Auto) [place] % (Auto) Eos % (Auto) Baso % (Auto) Neut # (Auto) Lymph # (Auto) [place] # (Auto) Eos # (Auto) Baso # (Auto) WBC Differential Differential Comment PT INR Sodium Potassium Chloride Carbon Dioxide Anion Gap BUN Creatinine Estimated GFR POC Glucose 210 H Random Glucose Calcium Total Bilirubin AST ALT Alkaline Phosphatase Ammonia Total Protein Albumin - Impressions ITS Impressions Liver Ultrasound 10/09/17 00:00 CONCLUSION: 1. No definite acute liver findings. 2. Apparent interval development of left sided hydronephrosis. Chest X-Ray 10/09/17 10:57 CONCLUSION: 1. Linear parenchymal opacity in the right lung base, likely atelectasis/ scarring. 2. New 1 cm sharply demarcated sclerotic lesion in the right proximal humerus concerning for metastatic disease in this patient with history of rectal and breast CA. Head CT 10/09/17 10:58 CONCLUSION: 1. No acute intracranial abnormality is identified. 2. Stable extra-axial partially calcified mass in the left frontal high convexity measuring 12 mm. Imaging features are characteristic of a meningioma. The lesion has been present and not significantly changed since November 2016. 3. Stable chronic findings include mild generalized atrophy and chronic periventricular white matter change. . Head MRI 10/11/17 00:00 CONCLUSION: 1. No acute intracranial findings. 2. Chronic ischemic findings. Discharge Plan - Discharge Disposition Patient Disposition: 63 [facility] Inpatient - Discharge Condition Condition: Fair - Discharge Order Discharge Orders: Discharge Order (Routine); Ordered 10/18/17 Ordered By: Vipul Caputo - Physicians Team Primary Care Provider: Arnie Trevizo Attending Provider: Vipul Caputo Other Providers: Donna Meza MD ; Emanuel Mcpherson MD, PhD ; Satish Calabrese MD ; Devon Abraham MD
[2017-10-18] MEDS: Budesonide-Formoterol 160/4.5 MCG 6 GM Inhaler INH SCH (11:14)
[2017-10-18] MEDS: CYCLOSPORINE EACH EYE SCH (11:14)
== END 2017-10-18 13:17 ==
LOC: NEPC 09:58 → NEDA 13:25 → HCIN 17:39
PROVIDERS: ADMIT Hospitalist; ATTEND Hospitalist